=== PATIENT | male | born 1980 | race Caucasian/White ===

== ENCOUNTER 2021-04-08 15:13 | Outpatient (CLI) | payer BC, SELFPAY ==
[2021-04-08 18:32] LABS: Hematocrit 36.4 % (42.0-52.0); Hemoglobin 10.9 g/dL (14.0-18.0); Mean Corpuscular HGB Conc 29.9 g/dl (32-36); Mean Corpuscular Hemoglobin 25.2 pg (26-34); Mean Corpuscular Volume 84.3 fl (80-100); Mean Platelet Volume 9.1 fl (7.4-10.4); Platelet Count Result 389 k/mm3 (150-375); Red Blood Count 4.32 M/mm3 (4.6-6.20); Red Cell Distribution Width 15.3 % (11.5-14.5); White Blood Count 12.4 K/mm3 (4.5-10.0)
[2021-04-08 18:57] LABS: LDL Cholesterol Direct 101 mg/dL
[2021-04-08 19:01] LABS: Alanine Aminotransferase 22 U/L (4-50); Albumin Level 4.5 g/dL (3.5-5.1); Alkaline Phosphatase 49 U/L (38-126); Anion Gap 19 mmol/L (8-16); Aspartate Amino Transferase 22 U/L (17-59); Bilirubin,Total 0.3 mg/dL (0.2-1.3); Blood Urea Nitrogen 86 mg/dL (9-20); Calcium 10.1 mg/dL (8.4-10.2); Carbon Dioxide 20 mmol/L (22-30); Chloride 104 mmol/L (98-107); Cholesterol 222 mg/dL (0-200); Estimated Glomerular Filt Rate 14; Glucose 146 mg/dL (65-110); HDL Direct 38 mg/dL; Potassium 6.3 mmol/L (3.4-5.0); Sodium 143 mmol/L (137-145); Triglycerides 355 mg/dL (<150)
[2021-04-08 19:52] LABS: Hemoglobin A1C 5.9 % (<5.7)
== END 2021-04-08 15:14 | disposition home or self-care (01) ==
LOC: ANHBWCLAB 15:15
PROVIDERS: PCP Family Medicine; Visit Provider Family Medicine
DX: E11.8 Type 2 diabetes mellitus with unspecified complications (principal); E78.1 Pure hyperglyceridemia; I10 Essential (primary) hypertension; N18.9 Chronic kidney disease, unspecified; F41.9 Anxiety disorder, unspecified; F32.9 Major depressive disorder, single episode, unspecified
CPT/HCPCS: 36415; 80053; 80061; 83036; 85027

== ENCOUNTER 2021-04-09 12:49 | Emergency (ER) | payer BC, SELFPAY ==
[2021-04-09] VITALS (22 sets, daily range): BP systolic 115–136; BP diastolic 67–85; PULSE 68–93; RESP 12–23; TEMP 37; O2SAT 96–99
--- NOTE | 2021-04-09 13:25 | ECG_ITS ---
Measurements Intervals [place] Rate: 78 P: 11 NC: 154 QRS: -25 QRSD: 77 T: 19 QT: 323 QTc: 368 Interpretive Statements SINUS RHYTHM POOR R WAVE PROGRESSION, ANTERIOR LEADS BORDERLINE ECG Electronically Signed On 04-09-2021 13:59:51 CDT by Rene Cook D.O.
[2021-04-09 13:56] LABS: Basophils Absolute Auto 0.1 K/mm3 (0.0-0.1); Basophils Percent Auto 0.4 % (0.2-1.2); Eosinophils Absolute Auto 0.4 K/mm3 (0-0.3); Eosinophils Percent Auto 3.4 % (0-4.4); Hematocrit 34.9 % (42.0-52.0); Hemoglobin 10.7 g/dL (14.0-18.0); Immature Granulocyte Absolute 0.04 K/mm3 (0.00-0.031); Immature Granulocyte Percent A 0.3 % (0-0.5); Lymphocytes Absolute Auto 2.11 K/mm3 (0.9-3.2); Lymphocytes Percent Auto 17.6 % (18.3-44.2); Mean Corpuscular HGB Conc 30.7 g/dl (32-36); Mean Corpuscular Hemoglobin 25.5 pg (26-34); Mean Corpuscular Volume 83.1 fl (80-100); Mean Platelet Volume 8.6 fl (7.4-10.4); Monocytes Absolute Auto 0.5 K/mm3 (0.1-0.6); Monocytes Percent Auto 4.4 % (2.6-8.5); Neutrophils Absolute Auto 8.8 K/mm3 (1.3-6.7); Neutrophils Percent Auto 73.9 % (45.5-73.1); Platelet Count Result 342 k/mm3 (150-375); Red Cell Distribution Width 15.2 % (11.5-14.5)
--- NOTE | 2021-04-09 14:17 | ED.GENADULT ---
HPI - General Adult General Chief complaint: Recheck/Abnormal Lab/Rx Stated complaint: Elevated Potassium Time Seen by Provider: 04/09/21 14:17 History of Present Illness HPI narrative: Patient is a 40-year-old male with history of chronic kidney disease, hypertension, diabetes who comes to the emergency room today because of abnormal lab work that was done yesterday. Patient reports that he feels fine. He was seen by a new PCP yesterday they recommended he have some routine lab work done. The patient received a call from the PCP office today saying that his potassium was dangerously high and he should come to the emergency room. Review of the chart shows that he had lab work done yesterday and had a potassium of 6.3. Also had a creatinine of 4.6. He does admit to a history of kidney issues . He was seen by administration internship once last year but has been unable to follow-up since then. He is on a lisinopril/hydrochlorothiazide combo pill. He denies any decreased urinary output. Denies any lower extremity edema. No shortness of breath. Related Data Home Medications Medication Instructions Recorded Confirmed atorvastatin 20 mg tablet 20 mg PO DAILY 11/21/20 Allergies Allergy/AdvReac Type Severity Reaction Status Date / Time No Known Allergies Allergy Unverified 04/08/21 14:42 Review of Systems Constitutional: Constitutional: Reports as per HPI, Denies fever(s), Denies night sweats and Denies weakness Cardiovascular: Cardiovascular: Denies chest pain, Denies edema, Denies leg edema, Denies dyspnea and Denies orthopnea Respiratory: Respiratory: Denies cough and Denies dyspnea Gastrointestinal: Gastrointestinal: Denies abdominal pain, Denies constipation, Denies diarrhea, Denies nausea and Denies vomiting Musculoskeletal: Musculoskeletal: Denies abnormal gait, Denies back pain, Denies numbness and Denies tingling Neurologic: Denies Abnormal speech present, Denies abnormal gait, Denies numbness, Denies tingling and Denies weakness Psychiatric: Psychiatric: Denies homicidal ideation and Denies suicidal ideation [facility] Family History Family History Mother Diabetes mellitus Hypertension Grandparent Diabetes mellitus Hypertension Social History Social History Smoking status: Never smoker Second hand tobacco smoke exposure: No Alcohol intake: never Substance use: current Substance use type: marijuana Exam Narrative: Pleasant, well-appearing, no distress Const: General: cooperative, healthy appearing, comfortable, no acute distress, well developed, alert, awake and Physically active Orientation/consciousness: patient oriented x3 HENMT: Head: normal to inspection, normocephalic and atraumatic Ears: external ears normal General nose exam: Normal external nose present Eyes: Pupils: Equal, round and reactive pupils present EOM: EOMs intact bilaterally Neck: Neck: normal visual inspection Chest: Chest palpation & inspection: normal inspection of the chest and no tenderness Resp: Effort & Inspection: normal respiratory effort and able to speak in complete sentences Auscultation: clear to auscultation bilaterally Cardio: Rate: regular rate Rhythm: regular rhythm GI: Inspection: normal to inspection GI Palp: No abdominal tenderness : General: Yes no CVA tenderness Back/Spine/Pelvis: Back: no CVA tenderness Skin: General skin exam: normal color and no rashes or lesions noted Lesions: no lesions Neuro: General: patient oriented x3, no focal motor deficits and CN's II-XI intact bilaterally Cranial nerves: Yes Equal, round and reactive pupils present Speech: No Abnormal speech present Extrem: General: normal to inspection and full ROM Psych: Appearance: grossly normal and well kempt Mental Status: mental status grossly normal Speech and movement: Normal speech and movement present Affect: norm
[2021-04-09 14:21] LABS: Alanine Aminotransferase 22 U/L (4-50); Albumin Level 4.5 g/dL (3.5-5.1); Alkaline Phosphatase 44 U/L (38-126); Anion Gap 16 mmol/L (8-16); Aspartate Amino Transferase 23 U/L (17-59); Bilirubin,Total 0.2 mg/dL (0.2-1.3); Blood Urea Nitrogen 83 mg/dL (9-20); Calcium 10.1 mg/dL (8.4-10.2); Carbon Dioxide 21 mmol/L (22-30); Chloride 103 mmol/L (98-107); Estimated CRCL calculation 22 ml/min; Estimated Glomerular Filt Rate 14; Glucose 149 mg/dL (65-110); Potassium 5.8 mmol/L (3.4-5.0); Sodium 140 mmol/L (137-145)
[2021-04-09 14:37] LABS: Add Urine Microscopic? YES; Appearance Urine Clear (Clear); Bilirubin Urine Negative (Negative); Blood Urine 1+ (Negative); Color Urine Straw (Yellow); Glucose Urine UA 2+ mg/dL (Negative); Ketones Urine Negative (Negative); Leukocyte Esterase Ur Negative LEU/UL (Negative); Nitrate Urine Negative (Negative); Protein Urine 2+ mg/dL (Negative); RBC Urine 0-2 /hpf (0-2); Specific Grav Ur 1.012 (1.001-1.035); Urobilinogen Urine Negative mg/dL (<2.0); WBC Urine 0-3 /hpf
--- NOTE | 2021-04-09 15:27 | PC.NURSE ---
Per PA Evans, no repeat EKG needed.
[2021-04-09] MEDS: SODIUM POLYSTYRENE SULFONONATE 15 GM/60 ML BTL PO (16:44)
== END 2021-04-09 17:11 | disposition home or self-care (01) ==
PROVIDERS: Emergency Provider Emergency Medicine; PCP Family Medicine
DX: I12.9 Hypertensive chronic kidney disease with stage 1 through stage 4 chronic kidney disease, or unspecified chronic kidney disease (principal); N18.9 Chronic kidney disease, unspecified; E87.5 Hyperkalemia; E11.22 Type 2 diabetes mellitus with diabetic chronic kidney disease
CPT/HCPCS: 36415; 80053; 81001; 85025; 93005; 99283; A9270

== ENCOUNTER 2021-04-15 11:14 | Outpatient (CLI) | payer BC, SELFPAY ==
[2021-04-15 20:36] LABS: Alanine Aminotransferase 22 U/L (4-50); Albumin Level 4.4 g/dL (3.5-5.1); Alkaline Phosphatase 50 U/L (38-126); Anion Gap 14 mmol/L (8-16); Aspartate Amino Transferase 26 U/L (17-59); Bilirubin,Total 0.2 mg/dL (0.2-1.3); Blood Urea Nitrogen 78 mg/dL (9-20); Calcium 9.8 mg/dL (8.4-10.2); Carbon Dioxide 18 mmol/L (22-30); Chloride 108 mmol/L (98-107); Estimated Glomerular Filt Rate 16; Glucose 129 mg/dL (65-110); Sodium 140 mmol/L (137-145)
== END 2021-04-15 11:15 | disposition home or self-care (01) ==
LOC: ANHBWCLAB 11:15
PROVIDERS: PCP Family Medicine; Visit Provider Family Medicine
DX: E87.5 Hyperkalemia (principal); I10 Essential (primary) hypertension
CPT/HCPCS: 36415; 80053

== ENCOUNTER 2021-05-21 14:02 | Outpatient (CLI) | payer BC, SELFPAY ==
[2021-05-21 18:36] LABS: Basophils Percent Auto 0.2 % (0.2-1.2); Eosinophils Absolute Auto 0.2 K/mm3 (0-0.3); Eosinophils Percent Auto 1.2 % (0-4.4); Hematocrit 37.9 % (42.0-52.0); Hemoglobin 11.2 g/dL (14.0-18.0); Immature Granulocyte Absolute 0.05 K/mm3 (0.00-0.031); Immature Granulocyte Percent A 0.4 % (0-0.5); Lymphocytes Absolute Auto 1.79 K/mm3 (0.9-3.2); Lymphocytes Percent Auto 14.8 % (18.3-44.2); Mean Corpuscular HGB Conc 29.6 g/dl (32-36); Mean Corpuscular Hemoglobin 25.1 pg (26-34); Mean Platelet Volume 8.8 fl (7.4-10.4); Monocytes Absolute Auto 0.6 K/mm3 (0.1-0.6); Monocytes Percent Auto 4.8 % (2.6-8.5); Neutrophils Absolute Auto 9.5 K/mm3 (1.3-6.7); Neutrophils Percent Auto 78.6 % (45.5-73.1); Platelet Count Result 386 k/mm3 (150-375); Red Blood Count 4.46 M/mm3 (4.6-6.20); Red Cell Distribution Width 15.6 % (11.5-14.5); White Blood Count 12.1 K/mm3 (4.5-10.0)
[2021-05-21 18:47] LABS: Anion Gap 13 mmol/L (8-16); Blood Urea Nitrogen 62 mg/dL (9-20); Calcium 9.9 mg/dL (8.4-10.2); Carbon Dioxide 25 mmol/L (22-30); Chloride 104 mmol/L (98-107); Estimated Glomerular Filt Rate 18; Glucose 120 mg/dL (65-110); Potassium 4.8 mmol/L (3.4-5.0); Sodium 142 mmol/L (137-145)
== END 2021-05-21 14:03 | disposition home or self-care (01) ==
LOC: ANHBWCLAB 14:03
PROVIDERS: PCP Family Medicine; Visit Provider Family Medicine
DX: E87.5 Hyperkalemia (principal); I10 Essential (primary) hypertension
CPT/HCPCS: 36415; 80048; 85025

== ENCOUNTER 2021-07-08 15:29 | Outpatient (CLI) | payer BC, SELFPAY ==
--- NOTE | ~2021-07-08 | XR_ITS ---
EXAMINATION: XR ankle LT min 3V DATE: 07/08/2021 15:43 INDICATION: Left ankle pain. TECHNIQUE: 4 views of left ankle were obtained. COMPARISON: None. FINDINGS: Bone alignment is normal. No fracture. Joint spaces are normal. There are enthesophytes at the posterior and plantar aspects of calcaneal tuberosity. There is ankle soft tissue swelling. IMPRESSION: 1. No fracture. Reviewed, dictated and finalized at location A. ND FLOOR OPERATOR IMPRESSION: 1. No fracture.
--- NOTE | ~2021-07-08 | XR_ITS ---
EXAMINATION: XR foot LT min 3V DATE: 07/08/2021 15:43 INDICATION: Left foot pain. TECHNIQUE: 4 views of left foot were obtained. COMPARISON: Left foot radiographs 06/02/2018 FINDINGS: Bone alignment is normal. No fracture. There is mild osteoarthritis of first metatarsophala ngeal joint and some of the interphalangeal joints. There are enthesophytes at the posterior and plan tar aspects of calcaneal tuberosity. IMPRESSION: 1. Mild polyarticular osteoarthritis. Reviewed, dictated and finalized at location A. CAPTAIN
== END 2021-07-08 15:30 | disposition home or self-care (01) ==
LOC: ANHBWCIMG 15:30
PROVIDERS: PCP Family Medicine; Visit Provider Family Medicine
DX: S93.402A Sprain of unspecified ligament of left ankle, initial encounter (principal); M19.072 Primary osteoarthritis, left ankle and foot
CPT/HCPCS: 73610; 73630

== ENCOUNTER 2022-07-21 14:50 | Inpatient (IN) | payer OTHER, SELFPAY ==
[2022-07-21] VITALS (8 sets, daily range): BP systolic 149–160; BP diastolic 75–89; PULSE 69–74; RESP 12–23; TEMP 36.6–36.9; O2SAT 98–100; BMI 32.2
--- NOTE | ~2022-07-21 | XR_ITS ---
EXAMINATION: XR chest port-a-cath/central DATE: 07/23/2022 15:58 INDICATION: Central venous dialysis catheter placement TECHNIQUE: frontal view of the chest was obtained. COMPARISON: Chest radiograph dated 07/21/2022 FINDINGS: Large-bore dual-lumen right internal jugular likely tunneled central venous dialysis catheter with di stal tip in the right atrium. Mild streaky atelectasis at the left costophrenic angle and right cardi ophrenic angle. No other airspace opacities, pulmonary edema, pleural effusion or pneumothorax. The c ardiomediastinal silhouette is normal. Visualized bones and soft tissues are unremarkable. IMPRESSION: 1. Large-bore dual-lumen right internal jugular central venous tunneled dialysis catheter with distal tip in the right atrium. 2. Mild bibasilar atelectasis. Reviewed, dictated and finalized at location A. HEATER OPERATOR IMPRESSION: 1. Large-bore dual-lumen right internal jugular central venous tunneled dialysi s catheter with distal tip in the right atrium. 2. Mild bibasilar atelectasis.
--- NOTE | ~2022-07-21 | XR_ITS ---
EXAMINATION: XR fl guide central line place DATE: 07/23/2022 15:26 INDICATION: Dialysis catheter placement TECHNIQUE: A single fluoroscopic image of the right upper chest was obtained during procedure perform ed by Dr. Brewer. Radiologist was not present for the imaging or procedure. The amount of fluoroscopy time used during this procedure was 0.1 minutes. COMPARISON: None. FINDINGS: Partially visualized large-bore dual-lumen right internal jugular likely tunneled central venous cath eter which extends into the cephalad superior vena cava and beyond the inferior margin of the field-o f-view. No evident pneumothorax at the right apex. IMPRESSION: 1. Fluoroscopy utilized during right internal jugular central venous catheter placement. Reviewed, dictated and finalized at location A. STANT OPERATIONS MANAGER IMPRESSION: 1. Fluoroscopy utilized during right internal jugular central venous catheter p venkata.
--- NOTE | ~2022-07-21 | XR_ITS ---
EXAMINATION: XR chest 1V portable Exam Date/Time: 07/21/2022 20:58 FARM EQUIPMENT MECHANIC APPRENTICE HISTORY: Kidney failure, HTN, DM Comparison: None available. RESULT: Lines, tubes, and devices: None. Lungs and pleura: Low volumes with crowding and bibasilar atelectasis. Cardiomediastinal silhouette: Stable. Other: No acute osseous or upper abdominal finding. IMPRESSION: No acute cardiopulmonary process. Reviewed, dictated and finalized at location K. EQUIPMENT MECHANIC APPRENTICE
[2022-07-21 15:13] LABS: Basophils Percent Auto 0.3 % (0.2-1.2); Eosinophils Absolute Auto 0.2 K/mm3 (0-0.3); Eosinophils Percent Auto 1.2 % (0-4.4); Hematocrit 30.7 % (42.0-52.0); Hemoglobin 9.8 g/dL (14.0-18.0); Immature Granulocyte Absolute 0.11 K/mm3 (0.00-0.031); Immature Granulocyte Percent A 0.7 % (0-0.5); Lymphocytes Absolute Auto 2.56 K/mm3 (0.9-3.2); Lymphocytes Percent Auto 16.7 % (18.3-44.2); Mean Corpuscular HGB Conc 31.9 g/dl (32-36); Mean Corpuscular Hemoglobin 25.9 pg (26-34); Mean Corpuscular Volume 81.2 fl (80-100); Mean Platelet Volume 8.3 fl (7.4-10.4); Monocytes Absolute Auto 0.8 K/mm3 (0.1-0.6); Monocytes Percent Auto 5.3 % (2.6-8.5); Neutrophils Absolute Auto 11.7 K/mm3 (1.3-6.7); Neutrophils Percent Auto 75.8 % (45.5-73.1); Platelet Count Result 299 k/mm3 (150-375); Red Blood Count 3.78 M/mm3 (4.6-6.20); Red Cell Distribution Width 15.2 % (11.5-14.5); White Blood Count 15.4 K/mm3 (4.5-10.0)
[2022-07-21 15:25] LABS: Alanine Aminotransferase 18 U/L (6-50); Albumin Level 4.3 g/dL (3.5-5.1); Alkaline Phosphatase 82 U/L (38-126); Anion Gap 15 mmol/L (8-16); Aspartate Amino Transferase 20 U/L (17-59); Bilirubin,Total 0.4 mg/dL (0.2-1.3); Blood Urea Nitrogen 101 mg/dL (9-20); Calcium 7.5 mg/dL (8.4-10.2); Carbon Dioxide 17 mmol/L (22-30); Chloride 107 mmol/L (98-107); Estimated CRCL calculation 12 ml/min; Estimated Glomerular Filt Rate 6; Glucose 135 mg/dL (65-110); Potassium 4.1 mmol/L (3.4-5.0); Sodium 139 mmol/L (137-145)
--- NOTE | 2022-07-21 19:11 | ECG_ITS ---
Measurements Intervals [place] Rate: 69 P: 43 DE: 174 QRS: -23 QRSD: 93 T: 53 QT: 401 QTc: 432 Interpretive Statements SINUS RHYTHM POOR R-WAVE PROGRESSION COMPARED TO ECG 04/09/2021 13:30:32 NO SIGNIFICANT CHANGES Electronically Signed On 07-22-2022 13:16:46 TICKET AGENT by Davi Martinez M.D.
[2022-07-21 19:26] LABS: Magnesium 2.4 mg/dL (1.6-2.3)
--- NOTE | 2022-07-21 19:58 | ED.GENADULT ---
HPI - General Adult General Chief complaint: Weakness Stated complaint: diminished kidney fx - fatigue and weakness Time Seen by Provider: 07/21/22 19:07 History of Present Illness HPI narrative: This is a 41-year-old male with a history of uncontrolled hypertension / diabetes presenting to ED with fatigue x1 week. patient notes that he can only go a couple hours at work before he feels like he has to sit down and take a rest. He denies chest pain, difficulty breathing, fever, chills, headache, body aches or any other physical complaint.Patient has been being seen by clinical safety manager Dr. Lanier at [facility]. He was told last week that his kidney function was down to 10% and he was close to needing dialysis. He has several appointments scheduled over the next couple months to monitor his kidney function. The patient spoke with his primary care physician earlier today and told him of his symptoms and was told to come to the emergency department. Related Data Home Medications Medication Instructions Recorded Confirmed atorvastatin 20 mg tablet 20 mg PO DAILY 11/21/20 07/08/21 Allergies Allergy/AdvReac Type Severity Reaction Status Date / Time No Known Allergies Allergy Verified 07/21/22 19:11 Review of Systems Review of Systems: CONSTITUTIONAL: Denies night sweats. EYES: No eye pain ENT: Denies rhinorrhea CARDIOVASCULAR: Denies palpitations RESPIRATORY: Denies hemoptysis GASTROINTESTINAL: Denies hematemesis GENITOURINARY: Denies hematuria. SKIN: Denies rash MUSCULOSKELETAL: Denies myalgia. NEUROLOGIC: Denies weakness. PSYCHIATRIC: Denies delusions [facility] Past Medical History Medical History Diabetes Hypertension Non-compliance Renal failure Family History Family History Mother Diabetes mellitus Hypertension Grandparent Diabetes mellitus Hypertension Social History Social History Smoking status: Never smoker Second hand tobacco smoke exposure: No Alcohol intake: never Substance use: current Substance use type: marijuana Exam Narrative: APPEARANCE: No apparent distress. Head: atraumatic. EYES: EOMI, NOSE: Atraumatic NECK: Trachea midline RESPIRATORY: No increased rate of breathing, clear to auscultation bilaterally CARDIOVASCULAR: RRR, no peripheral edema ABDOMINAL: Non-distended MUSCULOSKELETAl: No obvious deformities NEURO: Alert. Moving 4/4 extremities SKIN:: Warm, dry. Normal color PSYCHIATRIC: Normal affect Course Vital Signs Vital signs: Vital Signs Temperature 97.8 F 07/21/22 14:53 Pulse Rate 69 07/21/22 14:53 Respiratory Rate 18 07/21/22 14:53 Blood Pressure 149/75 H 07/21/22 14:53 Pulse Oximetry 100 07/21/22 14:53 Oxygen Delivery Room Air 07/21/22 14:53 Temperature 97.8 F 07/21/22 14:53 Pulse Rate 70 07/21/22 19:31 Respiratory Rate 20 07/21/22 19:31 Blood Pressure 150/81 H 07/21/22 19:31 Pulse Oximetry 100 07/21/22 19:31 Oxygen Delivery Room Air 07/21/22 14:53 Medical Decision Making MDM Narrative Medical decision making narrative: This is a 41-year-old male presenting ED with fatigue x1 week. patient has poor kidney function at baseline. Will get lab work to evaluate his kidney function. EKG interpretation: Rhythm [sinus], Rate 69, Mallard -[normal], MD -[normal], QRS [narrow], QTC [normal], T waves -[negative for concerning inversions], ST Segments - [Negative for concerning elevations] Final interpretations: [Normal Sinus Rhythm] Flu/COvid is negative. Lab work showed a BUN of 101 and creatinine of 9.0. Patient's potassium is 4.1. He is not fluid overloaded. He is slightly acidotic with carbon dioxide of 17. No emergent indications for dialysis at this point. Patient will be admitted to the hospital. Patient has been accepted by Dr. Delarosa. Nep
[2022-07-21 20:02] LABS: Influenza A QL RT-PCR Negative (Negative); Influenza B QL RT-PCR Negative (Negative); SARS-CoV-2 RNA PCR Negative
--- NOTE | 2022-07-21 20:48 | PM.IMHP ---
H&P: HPI History of Present Illness Date/Time: 07/21/22 20:48 Chief Complaint: generalized weakness Narrative: This is a 41-year-old male with past medical history significant for hypertension, dyslipidemia, type 2 diabetes mellitus, chronic kidney disease, depression, obesity. patient presents to the emergency room due to generalized weakness. patient has worsening kidney function and was sent to the emergency room patient found to have a creatinine of 9 and BUN of 101. patient denies any fevers, rigors, chills, cough, sputum production, chest pain, palpitations, lightheadedness, nausea, vomiting, diarrhea, abdominal pain has had some leg swelling. Patient has been admitted for further evaluation management and treatment. A CHEST X-RAY WAS REPORTED IMPRESSION: No acute cardiopulmonary process. EKG WAS REPORTED ; SINUS RHYTHM POSSIBLE ANTERIOR MYOCARDIAL INFARCTION , OF INDETERMINATE AGE [30 ms Q WAVE IN V3/V4, OR R < 0.2 mV IN V4] COMPARED TO ECG 04/09/2021 13:30:32 NO SIGNIFICANT CHANGES Review of Systems Review of Systems: GENERALIZED WEAKNESS, WORSENING KIDNEY FUNCTION. IN PREPARATION FOR INITIATION OF DIALYSIS. Constitutional: Constitutional: Denies chills, Reports fatigue, Denies fever(s), Reports lethargy, Denies malaise, Denies poor appetite and Reports weakness Eyes: Eyes: Denies change in vision ENT: Denies dysphagia and Denies odynophagia Cardiovascular: Cardiovascular: Denies chest pain, Denies leg ulcers, Reports leg edema, Denies lightheadedness, Denies radiating jaw, neck or arm pain and Denies palpitations Respiratory: Respiratory: Denies cough, Denies pain on inspiration, Denies dyspnea, Denies dyspnea on exertion and Denies wheezing Gastrointestinal: Gastrointestinal: Denies abdominal pain, Denies dyspepsia, Denies heartburn, Denies diarrhea, Denies nausea and Denies vomiting Genitourinary: Genitourinary: Reports no additional male genitourinary complaints and Reports as per HPI Musculoskeletal: Musculoskeletal: Reports muscle weakness Integumentary/Breasts: Skin/Breast: Denies rash Neurologic: Denies abnormal gait, Denies dizziness, Denies focal weakness, Denies Sensory deficit (Neuro) and Denies weakness Psychiatric: Psychiatric: Reports no additional psychiatric complaints and Reports as per HPI Endocrine: Endocrine: Denies cold intolerance, Denies flushing, Denies heat intolerance, Denies polyphagia, Denies polydipsia and Denies palpitations Hematologic/Lymphatic: Hematologic/Lymphatic: Reports no additional hematologic/lymphatic complaints and Reports as per HPI Allergic/Immunologic: Allergic/Immunologic: Reports no additional allergic/immunologic complaints and Reports as per HPI [facility] Past Medical History Medical History Diabetes Hypertension Non-compliance Renal failure Family History Family History Mother Diabetes mellitus Hypertension Grandparent Diabetes mellitus Hypertension Social History Social History Smoking status: Never smoker Second hand tobacco smoke exposure: No Alcohol intake: never Substance use: current Substance use type: marijuana Last use: 07/21/22 Lack of Transportation: No Lack of Food: Never True Current Housing: I Have Housing Concerned About Future Housing: No Difficulty Paying Gas/Electric Bills: No Difficulty Paying for Meds: No Currently Unemployed: No Education: High School Diploma/GED Difficulty w/ Childcare or Family Care: No Spiritual care concerns: No Meds Home Medications and Allergies Home Medications Medication Instructions Recorded Confirmed Type escitalopram oxalate 20 mg tablet 20 mg PO DAILY #90 tabs 09/11/21 07/21/22 Rx (Lexapro) amlodipine 10 mg tablet 10 mg PO DAILY 07/21/22 07/21/22 History calcitriol 0
[2022-07-21 20:51] LABS: Add Urine Microscopic? YES; Appearance Urine Slightly Cloudy (Clear); Bilirubin Urine Negative (Negative); Blood Urine 1+ (Negative); Color Urine Light Yellow (Yellow); Glucose Urine UA Trace mg/dL (Negative); Ketones Urine Negative (Negative); Leukocyte Esterase Ur Negative LEU/UL (Negative); Nitrate Urine Negative (Negative); Protein Urine 3+ mg/dL (Negative); Urobilinogen Urine 0.2 mg/dL (<2.0)
[2022-07-21 20:55] LABS: Amorphous Sediment Urine Few; Bacteria Urine Trace /hpf; Mucus Urine Rare /lpf; Squamous Epithelial Cell Urine Rare /hpf (Few)
--- NOTE | 2022-07-21 23:28 | ADMGEN ---
This patient, Carlos Montana, was admitted to Medical Room 249-01. Patient/family oriented to hospital policies and general routines including ID bracelet, bed and alarms, visiting hours, pain management, procedures, bathroom and other care routines, personal items, smoking policy, room service/diet, and visiting hours. Information on how to activate the Rapid Response Team has been discussed. Patient/Family are encouraged to report perceived risks to care and to ask questions if they do not understand what they are told or what they should do.
[2022-07-22 04:45] VITALS: BP 136/72; PULSE 69; RESP 14; TEMP 36.6; O2SAT 98
[2022-07-22 06:13] LABS: Basophils Percent Auto 0.2 % (0.2-1.2); Eosinophils Absolute Auto 0.2 K/mm3 (0-0.3); Eosinophils Percent Auto 1.4 % (0-4.4); Hematocrit 29.7 % (42.0-52.0); Hemoglobin 9.4 g/dL (14.0-18.0); Immature Granulocyte Absolute 0.06 K/mm3 (0.00-0.031); Immature Granulocyte Percent A 0.4 % (0-0.5); Lymphocytes Absolute Auto 2.49 K/mm3 (0.9-3.2); Lymphocytes Percent Auto 17.4 % (18.3-44.2); Mean Corpuscular HGB Conc 31.6 g/dl (32-36); Mean Corpuscular Hemoglobin 25.5 pg (26-34); Mean Corpuscular Volume 80.7 fl (80-100); Mean Platelet Volume 8.5 fl (7.4-10.4); Monocytes Absolute Auto 0.8 K/mm3 (0.1-0.6); Monocytes Percent Auto 5.7 % (2.6-8.5); Neutrophils Absolute Auto 10.7 K/mm3 (1.3-6.7); Neutrophils Percent Auto 74.9 % (45.5-73.1); Platelet Count Result 279 k/mm3 (150-375); Red Blood Count 3.68 M/mm3 (4.6-6.20); Red Cell Distribution Width 15.1 % (11.5-14.5); White Blood Count 14.3 K/mm3 (4.5-10.0)
[2022-07-22 06:21] LABS: Anion Gap 13 mmol/L (8-16); Blood Urea Nitrogen 100 mg/dL (9-20); Calcium 7.3 mg/dL (8.4-10.2); Carbon Dioxide 16 mmol/L (22-30); Chloride 111 mmol/L (98-107); Estimated CRCL calculation 12 ml/min; Estimated Glomerular Filt Rate 7; Glucose 99 mg/dL (65-110); Phosphorus 10.2 mg/dL (2.5-4.5); Potassium 4.2 mmol/L (3.4-5.0); Sodium 140 mmol/L (137-145)
[2022-07-22 07:00] LABS: Hepatitis B Surface Antigen Negative (Negative)
[2022-07-22 07:06] LABS: HAV RESULT Negative (Negative); Hepatitis B Core IgM Result Negative (Negative)
[2022-07-22 07:18] LABS: Hepatitis B Surface Anti Res Negative; Hepatitis C Virus Antibody Negative (Negative)
--- NOTE | 2022-07-22 07:45 | PM.IMPN ---
Progress Note: A&P Assessment and Plan (1) Acute kidney injury superimposed on CKD: Code(s): N17.9 - Acute kidney failure, unspecified; N18.9 - Chronic kidney disease, unspecified Status: Acute Assessment and Plan: Patient presented to the emergency department with complaints of generalized weakness and fatigue. He has a history of chronic kidney disease and sees Dr. Stanton at [facility], Nephrology. CKD stage 5 BUN 101, creatinine 9, GFR 6, potassium 4.1, sodium 139, chloride 107, carbon dioxide 17 anion gap 15, glucose 135, magnesium 2.4, calcium 7.5. Prior labs from 04/29-05/29 showed BUN 62-83 and creatinine 3.8-4.6, eGFR 14-18. Nephrology consulted and appreciate recommendations Trend renal function Phosphorus 10.2, calcium 7.3, on 07/22 increase sevelamer to 1600 mg TID Continue vitamin D3, calcitriol, and tight glucose and BP control Will hold losartan for now until evaluated by Nephrology (2) Hypertension: Qualifiers: Hypertension type: primary hypertension Qualified Code(s): I10 - Essential (primary) hypertension Code(s): I10 - Essential (primary) hypertension Status: Chronic Assessment and Plan: Chronic, BP 133/74 to 160/85 continue amlodipine, Toprol XL at home doses Will hold losartan until evaluated by Nephrology due to possible acute worsening of CKD (3) Diabetes: Qualifiers: Diabetes mellitus type: type 2 Diabetes mellitus assisted insulin use: without long term care social worker use Diabetes mellitus complication status: with kidney complications Diabetes mellitus complication detail: with chronic kidney disease Chronic kidney disease stage: stage 5, not on chronic dialysis Qualified Code(s): E11.22 - Type 2 diabetes mellitus with diabetic chronic kidney disease; N18.5 - Chronic kidney disease, stage 5 Code(s): E11.9 - Type 2 diabetes mellitus without complications Status: Chronic Assessment and Plan: Chronic, stable. A1c 6.1% Hold semaglutide while inpatient Continue Accu-Cheks a.c. HS with low-dose insulin sliding scale t.i.d. with meals (4) Anemia: Qualifiers: Anemia type: iron deficiency Iron deficiency anemia type: unspecified iron deficiency Qualified Code(s): D50.9 - Iron deficiency anemia, unspecified Code(s): D64.9 - Anemia, unspecified Status: Chronic Assessment and Plan: Chronic, hemoglobin 9 0.4-9.8. Prior levels in 2020 10-12. Likely multifactorial secondary to iron deficiency and chronic kidney disease Serum iron 36, TIBC 247, saturation 15%, ferritin 104. He reports starting a multivitamin with iron in the past week however renal caps does not appear to contain iron. Will start ferrous sulfate 325 mg p.o. daily. B12 769 and folate 18-within normal limits Trend H&H and monitor for acute bleeding (5) Leukocytosis: Code(s): D72.829 - Elevated white blood cell count, unspecified Status: Acute Assessment and Plan: WBC 14.3 without bandemia. patient is afebrile. UA shows slightly cloudy urine without nitrites or leukocytes, WBC 10-15 and trace bacteria, 3+ protein. He has no suprapubic or CVA tenderness on exam. UA is not significantly concerning for acute UTI. Hold antibiotics pending urine culture results. Chest x-ray negative for acute pulmonary disease No open wounds appreciated No complaints of diarrhea, abdominal pain, nausea vomiting. Trend CBC and monitor vital signs. (6) Weakness: Code(s): R53.1 - Weakness Status: Acute Assessment and Plan: Possibly secondary to worsening of CKD and anemia. B12 and folic acid within normal limits TSH within normal limits Iron panel suggests iron deficiency and will start iron supplement No signs or symptoms of hypoglycemia-continue Accu-Cheks a.c. HS No focal deficits. Continue to monitor neuro status and vital signs (7) Obstructive sleep apnea: Code(s): G47.33 - Obstructive sleep apnea (adult) (pedia
[2022-07-22 08:38] LABS: Glucose Point of Care 94 mg/dl (65-105)
[2022-07-22] MEDS: SEVELAMER CARBONATE 800 MG TABLET 1600 MG PO ×3 (08:49→17:20)
[2022-07-22 08:50] VITALS: PULSE 68
[2022-07-22] MEDS: METOPROLOL SUCCINATE EXT REL 50 MG TABCR PO (08:50)
[2022-07-22] MEDS: CHOLECALCIFEROL 1,000 UNITS TABLET 1000 UNITS PO (08:50)
[2022-07-22] MEDS: VITAMIN B CMPLX/VIT C/FOLIC AC 1 CAPSULE 1 CAP PO (08:51)
[2022-07-22] MEDS: calcitrioL 0.25 MCG CAPSULE PO (08:51)
[2022-07-22] MEDS: amLODIPine BESYLATE 5 MG TABLET 10 MG PO (08:51)
[2022-07-22] MEDS: ESCITALOPRAM OXALATE 10 MG TABLET 20 MG PO (08:51)
[2022-07-22] MEDS: ROSUVASTATIN 10 MG TABLET PO (08:51)
[2022-07-22] MEDS: LOSARTAN POTASSIUM 25 MG TABLET PO (08:51)
[2022-07-22 08:54] VITALS: RESP 16; O2SAT 98
[2022-07-22 09:17] LABS: Hemoglobin A1C 6.1 % (<5.7)
[2022-07-22 09:26] LABS: Iron 36 ug/dL (49-181)
[2022-07-22 09:36] LABS: Percent Iron Saturation 15 % (20-50)
[2022-07-22 10:06] LABS: Folic Acid 18.7 ng/mL (2.76->20)
[2022-07-22 12:29] LABS: Glucose Point of Care 163 mg/dl (65-105)
[2022-07-22 15:02] VITALS: BP 133/74; PULSE 67; RESP 16; TEMP 36.5; O2SAT 97
--- NOTE | 2022-07-22 15:19 | PM.CNNEP ---
Assessment and Plan Assessment and plan (1) End stage renal disease: Code(s): N18.6 - End stage renal disease Status: Chronic Assessment and Plan: due to progression of disease secondary to his diabetic nephropathy will plan to initate LAP CUTTER/dialysis on this hospitalization (see discussion below) follow electrolytes, volume status, and clearance Consult Surgery for HD catheter placement (2) Weakness: Code(s): R53.1 - Weakness Status: Chronic Assessment and Plan: suspect this is a manifestation of his uremia however, relative anemia could be playing a role as well follow symptoms once dialysis initiated (3) Hypertension: Qualifiers: Hypertension type: primary hypertension Qualified Code(s): I10 - Essential (primary) hypertension Code(s): I10 - Essential (primary) hypertension Status: Chronic Assessment and Plan: reasonable control at this time will adjust medications as needed BP control may improve further with dialysis initiation (4) Anemia: Qualifiers: Anemia type: iron deficiency Iron deficiency anemia type: unspecified iron deficiency Qualified Code(s): D50.9 - Iron deficiency anemia, unspecified Code(s): D64.9 - Anemia, unspecified Status: Chronic Assessment and Plan: likely related to CKD/ESRD check iron studies Epogen with HD follow trend of H/H (5) Diabetes: Code(s): E11.9 - Type 2 diabetes mellitus without complications Status: Acute Assessment and Plan: follow acchecks glycemic control Long extensive discussion ( greater than 20 minutes) with the patient regarding his progressive decline in renal function in association with what appears to be symptoms of uremia (weakness/fatigue). given his fairly rapid decline in kidney function in just 2 weeks from when he last saw [facility] nephrology, I suspect he probably needs dialytic intervention sooner than later in the hopes that this will make him feel better in general. I discussed with him the procedure of hemodialysis, the necessity of placement of a hemodialysis catheter, and initiation of renal replacement therapy in significant detail. I also talked him about home with dialysis including peritoneal dialysis since he is interested in still working in general. Furthermore, he probably is a reasonable candidate for kidney transplantation as well. He is agreeable to initiation of renal replacement therapy/dialysis at this time. Will continue to follow. History of Present Illness Reason for Consult Consult date: 07/22/22 Reason for consult: chronic renal failure Chief Complaint Chief complaint: Kidney failure History of Present Illness Narrative: The patient is a very pleasant 41-year-old male with a significant past medical history as outlined below who presented to [facility] Emergency room due to generalized fatigue/weakness. The patient has a long extensive history of advanced kidney disease and subsequent progression of kidney disease over the last several years. Due to his fluctuating insurance issues, he has seen several different nephrologists regarding this issue with his most recent visit with [facility] Nephrology earlier this month. At that office visit he was told he had fairly advanced kidney disease and was referred to education regarding dialysis modalities with the possibility of initiation of renal replacement therapy depending on repeat labs. Over the last few days he notes that the fatigue and generalized weakness seen to have progressively gotten worse. He discussed this with his primary care physician who recommended referral to the emergency room for further evaluation particularly given his known advanced chronic kidney disease. Workup and evaluation in the emergency room demonstrated patient be mildly hypertensive but in no acute distress. Routine blood test demonstrated worsening o
[2022-07-22 17:23] LABS: Glucose Point of Care 84 mg/dl (65-105)
[2022-07-22 21:00] VITALS: BP 156/79; PULSE 75; RESP 17; TEMP 36.7; O2SAT 96
[2022-07-22 22:52] LABS: Glucose Point of Care 104 mg/dl (65-105)
[2022-07-23] VITALS (23 sets, daily range): BP systolic 85–162; BP diastolic 52–93; PULSE 66–80; RESP 14–24; TEMP 36–36.9; O2SAT 95–100
[2022-07-23 05:46] LABS: Hematocrit 30.3 % (42.0-52.0); Hemoglobin 9.6 g/dL (14.0-18.0); Mean Corpuscular HGB Conc 31.7 g/dl (32-36); Mean Corpuscular Hemoglobin 25.7 pg (26-34); Mean Platelet Volume 8.3 fl (7.4-10.4); Platelet Count Result 290 k/mm3 (150-375); Red Blood Count 3.74 M/mm3 (4.6-6.20); Red Cell Distribution Width 15.1 % (11.5-14.5)
[2022-07-23 06:00] LABS: Albumin Level 4.1 g/dL (3.5-5.1); Anion Gap 14 mmol/L (8-16); Blood Urea Nitrogen 97 mg/dL (9-20); Calcium 7.4 mg/dL (8.4-10.2); Carbon Dioxide 16 mmol/L (22-30); Chloride 109 mmol/L (98-107); Estimated CRCL calculation 12 ml/min; Estimated Glomerular Filt Rate 6; Glucose 97 mg/dL (65-110); Magnesium 2.2 mg/dL (1.6-2.3); Phosphorus 10.3 mg/dL (2.5-4.5); Potassium 4.1 mmol/L (3.4-5.0); Sodium 139 mmol/L (137-145)
[2022-07-23] MEDS: METOPROLOL SUCCINATE EXT REL 50 MG TABCR PO (08:32)
[2022-07-23] MEDS: amLODIPine BESYLATE 5 MG TABLET 10 MG PO (08:32)
[2022-07-23 08:50] LABS: Glucose Point of Care 110 mg/dl (65-105)
--- NOTE | 2022-07-23 10:03 | PM.CNGS ---
Assessment and Plan Assessment and plan (1) Acute kidney injury superimposed on CKD: Code(s): N17.9 - Acute kidney failure, unspecified; N18.9 - Chronic kidney disease, unspecified Status: Acute Assessment and Plan: Presented with acute on chronic renal failure and Nephrology is requesting placement of a tunneled hemodialysis catheter. Description of the procedure, risks, benefits, expected outcomes, and expected recovery were discussed with the patient in detail. All questions were answered. He agrees to proceed. We will add him onto the surgery schedule today and keep NPO. (2) Hypertension: Qualifiers: Hypertension type: primary hypertension Qualified Code(s): I10 - Essential (primary) hypertension Code(s): I10 - Essential (primary) hypertension Status: Chronic (3) Diabetes: Qualifiers: Chronic kidney disease stage: stage 5, not on chronic dialysis Diabetes mellitus complication detail: with chronic kidney disease Diabetes mellitus complication status: with kidney complications Diabetes mellitus shelter insulin use: without regional intermodal truck driver use Diabetes mellitus type: type 2 Qualified Code(s): E11.22 - Type 2 diabetes mellitus with diabetic chronic kidney disease; N18.5 - Chronic kidney disease, stage 5 Code(s): E11.9 - Type 2 diabetes mellitus without complications Status: Chronic (4) Obesity (BMI 30.0-34.9): Code(s): E66.9 - Obesity, unspecified Status: Acute Plan I have discussed the patient's case and plan of care with Dr. Brewer. Thank you for allowing us to see the patient in consultation. History of Present Illness Consult details Consult date: 07/23/22 Reason for consult: other (Placement of tunneled hemodialysis catheter) Requesting physician: Anni Graham MD Narrative: This is a 41-year-old man with a history of chronic renal failure, who presented to the ER 2 days ago with complaints of worsening fatigue. He was found have acute on chronic renal failure. He was admitted to the hospitalist service. Nephrology has been consulted and would like to proceed with hemodialysis. Nephrology has consulted our service for placement of a tunneled hemodialysis catheter. He is now seen for surgical evaluation. No specific complaints at this time. Denies ever requiring even temporary hemodialysis in the past. Review of Systems Review of Systems: All systems reviewed & are unremarkable except as noted in HPI and below Constitutional: Constitutional: Reports as per HPI, Reports no additional constitutional complaints and Reports fatigue Cardiovascular: Cardiovascular: Reports no additional cardiovascular complaints Respiratory: Respiratory: Reports no additional respiratory complaints and Denies dyspnea [facility] Past Medical History Medical History (Updated 07/23/22 @ 10:10 by SENDY Meyers) Diabetes Hypertension Non-compliance Renal failure Surgical History Surgical History No pertinent past surgical history Family History Family History Mother Diabetes mellitus Hypertension Grandparent Diabetes mellitus Hypertension Social History Social History Smoking status: Never smoker Second hand tobacco smoke exposure: No Alcohol intake: never Substance use: current Substance use type: marijuana Last use: 07/21/22 Lack of Transportation: No Lack of Food: Never True Current Housing: I Have Housing Concerned About Future Housing: No Difficulty Paying Gas/Electric Bills: No Difficulty Paying for Meds: No Currently Unemployed: No Education: High School Diploma/GED Difficulty w/ Childcare or Family Care: No Spiritual care concerns: No Meds Home Medications and Allergies Home Medications Medication Instructions R
--- NOTE | 2022-07-23 10:55 | PM.IMPN ---
Progress Note: A&P Assessment and Plan (1) Acute kidney injury superimposed on CKD: Code(s): N17.9 - Acute kidney failure, unspecified; N18.9 - Chronic kidney disease, unspecified Status: Acute Assessment and Plan: Patient presented to the emergency department with complaints of generalized weakness and fatigue. He has a history of chronic kidney disease and sees Dr. Stanton at [facility], Nephrology. CKD stage 5 BUN 101, creatinine 9, GFR 6, potassium 4.1, sodium 139, chloride 107, carbon dioxide 17 anion gap 15, glucose 135, magnesium 2.4, calcium 7.5. Prior labs from 04/29-05/29 showed BUN 62-83 and creatinine 3.8-4.6, eGFR 14-18. Nephrology consulted and appreciate recommendations Trend renal function Phosphorus 10.2, calcium 7.3, on 07/22 increase sevelamer to 1600 mg TID Continue vitamin D3, calcitriol, and tight glucose and BP control Will hold losartan for now. dialysis catheter to be placed today by general surgery for emergent dialysis. 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 A1c 6.1% Hold semaglutide while inpatient Continue Accu-Cheks a.c. HS with low-dose insulin sliding scale t.i.d. with meals Stable (4) Anemia: Qualifiers: Anemia type: iron deficiency Iron deficiency anemia type: unspecified iron deficiency Qualified Code(s): D50.9 - Iron deficiency anemia, unspecified Code(s): D64.9 - Anemia, unspecified Status: Chronic Assessment and Plan: Chronic, hemoglobin 9 0.4-9.8. Prior levels in 2020 10-12. Likely multifactorial secondary to iron deficiency and chronic kidney disease Serum iron 36, TIBC 247, saturation 15%, ferritin 104. He reports starting a multivitamin with iron in the past week however renal caps does not appear to contain iron. Started ferrous sulfate 325 mg p.o. daily. B12 769 and folate 18-within normal limits Trend H&H and monitor for acute bleeding (5) Leukocytosis: Code(s): D72.829 - Elevated white blood cell count, unspecified Status: Acute Assessment and Plan: WBC 14.3 without bandemia. patient is afebrile. UA shows slightly cloudy urine without nitrites or leukocytes, WBC 10-15 and trace bacteria, 3+ protein. He has no suprapubic or CVA tenderness on exam. UA is not significantly concerning for acute UTI. Hold antibiotics pending urine culture results. Chest x-ray negative for acute pulmonary disease No open wounds appreciated No complaints of diarrhea, abdominal pain, nausea vomiting. Trend CBC and monitor vital signs. Appears chronic. Monitor for s/s acute infection. (6) Weakness: Code(s): R53.1 - Weakness Status: Acute Assessment and Plan: Possibly secondary to worsening of CKD/uremia and anemia. B12 and folic acid within normal limits TSH within normal limits Iron panel suggests iron deficiency and will start iron supplement No signs or symptoms of hypoglycemia-continue Accu-Cheks a.c. HS No focal deficits. Continue to monitor neuro status and vital signs
--- NOTE | 2022-07-23 12:16 | WPDHPUPDATE1 ---
History and Physical Update Update Date/Time: 07/23/22 12:16 History and Physical has been reviewed, including an updated exam of the patient. There are NO changes in the patient's condition. Risks, benefits, and alternatives have been discussed and questions answered. Patient agrees to proceed with procedure.
[2022-07-23 12:17] LABS: Glucose Point of Care 106 mg/dl (65-105)
[2022-07-23] MEDS: SODIUM CHLORIDE 0.9% IV 500 ML 30 ML IV CONT (13:10)
--- NOTE | 2022-07-23 13:38 | WPDANESEPPF ---
Anes - Initial Pre Proc Eval Procedure: Operation Date: 07/23/22 14:30 Proposed Procedures p Insertion Duraflow Permacath Dialysis Tunneled Dialysis Catheter - Loly Brewer MD Date/Time: 07/23/22 13:38 Surgeon: Rosey Delarosa MD Pre Op Diagnosis: Kidney failure Patient Data Age: 41 Gender: M Height: 1.75 m Weight: 99.1 kg Last Vital Signs Temp 36.8 C 07/23/22 13:02 Pulse 69 07/23/22 13:02 Resp 18 07/23/22 13:02 BP 153/80 H 07/23/22 13:02 Pulse Ox 98 07/23/22 13:02 O2 Del Method Room Air 07/23/22 13:02 Allergies Allergy/AdvReac Type Severity Reaction Status Date / Time No Known Allergies Allergy Verified 07/21/22 19:11 Home Medications Medication Instructions Recorded Confirmed Type escitalopram oxalate 20 mg tablet 20 mg PO DAILY #90 tabs 09/11/21 07/21/22 Rx (Lexapro) amlodipine 10 mg tablet 10 mg PO DAILY 07/21/22 07/21/22 History calcitriol 0.25 mcg capsule 0.25 mcg PO DAILY 07/21/22 07/22/22 History cholecalciferol (vitamin D3) 25 1,000 unit PO DAILY 07/21/22 07/22/22 History mcg (1,000 unit) capsule (Vitamin D3) losartan 25 mg tablet 25 mg PO DAILY 07/21/22 07/22/22 History rosuvastatin 10 mg tablet 10 mg PO DAILY 07/21/22 07/22/22 History semaglutide 0.25 mg or 0.5 mg (2 0.25 mg subcut WEEKLY 07/21/22 07/22/22 History mg/1.5 mL) subcutaneous pen injector (Ozempic) sevelamer carbonate 800 mg tablet 800 mg PO TID 07/21/22 07/22/22 History vitamin B complex and vitamin C 1 cap PO DAILY 07/21/22 07/22/22 History no.20-folic acid 1 mg capsule (Sibley Caps) amlodipine 5 mg tablet 5 mg PO DAILY 07/22/22 07/21/22 History metoprolol succinate 50 mg PO DAILY 07/22/22 07/22/22 History Laboratory Tests 07/22/22 07/22/2207/23/22 17:16 21:54 05:15 WBC 14.0 K/mm3 H K/mm3 (4.5-10.0) RBC 3.74 M/mm3 L M/mm3 (4.6-6.20) Hgb 9.6 g/dL L g/dL (14.0-18.0) Hct 30.3 % L % (42.0-52.0) MCV 81.0 fl fl (80-100) MCH 25.7 pg L pg (26-34) MCHC 31.7 g/dl L g/dl (32-36) RDW 15.1 % H % (11.5-14.5) Plt Count 290 k/mm3 k/mm3 (150-375) MPV 8.3 fl fl (7.4-10.4) Sodium Potassium Chloride Carbon Dioxide Anion Gap BUN Creatinine Estim Creat Clear Calc Estimated GFR Glucose POC Capillary Glucose 84 mg/dl mg/dl 104 mg/dl mg/dl (65-105) (65-105) Calcium Phosphorus Magnesium Albumin 07/23/22 07/23/22 07/23/22 05:15 08:47 12:13 WBC RBC Hgb Hct MCV MCH MCHC RDW Plt Count MPV Sodium 139 mmol/L mmol/L (137-145) Potassium 4.1 mmol/L mmol/L (3.4-5.0) Chloride 109 mmol/L H mmol/L (98-107) Carbon Dioxide 16 mmol/L L mmol/L (22-30) Anion Gap 14 mmol/L mmol/L (8-16) BUN 97 mg/dL H mg/dL (9-20) Creatinine 9.00 mg/dL H mg/dL (0.7-1.3) Estim Creat Clear Calc 12 ml/min ml/min Estimated GFR 6 L (59 - ) Glucose 97 mg/dL mg/dL (65-110) POC Capillary Glucose 110 mg/dl H mg/dl 106 mg/dl H mg/dl (65-105) (65-105) Calcium 7.4 mg/dL L mg/dL (8.4-10.2) Phosphorus 10.3 mg/dL H mg/dL (2.5-4.5) Magnesium 2.2 mg/dL mg/dL (1.6-2.3) Albumin 4.1 g/dL g/dL (3.5-5.1) Patient hx anesthesia problems: none Family hx anesthesia problems: none Results Review: All pre-operative results and documents have been reviewed as part of the pre-operative evaluation. [facility] Past Medical History Medical History (Updated 07/23/22 @ 12:37 by Anni Graham MD) Diabetes Hypertension Non-compliance Loretta
[2022-07-23] MEDS: HEPARIN SODIUM 5,000 UNITS/ML VIAL 5000 UNITS IRRIGATION (15:14)
[2022-07-23] MEDS: HEPARIN SODIUM, PORCINE 10,000 UNITS/10 ML VIAL 10000 UNITS IRRIGATION (15:15)
--- NOTE | 2022-07-23 15:21 | W.PM.PROC2 ---
Procedure Note - Detailed Date of Procedure 07/23/22 Pre-op Diagnosis renal failure Post-op Diagnosis Same Procedure Performed placement of 28 cm tunneled hemodialysis catheter in right internal jugular vein under both ultrasound and fluroscopic guidance Surgeon Loly Brewer MD Anesthesia General and Local Indications 41 y/o M c CRF now with worsening renal failure requiring emergent hemodialysis Findings 1st stick RIJ Description of Procedure Patient was taken to the operating room and placed in the supine position. After adequate induction of general anesthesia, the patient was prepped and draped in normal sterile fashion. A time-out was then done to verify the patient's identity as well as the procedure being performed. I began by using the SonoSite and locating the right internal jugular vein. Once this was done, I localized the overlying skin. I then made a small incision in the skin. I then gained access into the right internal jugular vein with an 18 gauge needle. At this point, I threaded the guidewire into the right internal jugular vein. Placement of the guidewire was confirmed by both ultrasound and fluoroscopic guidance. I then went ahead and measured the 28 cm tunneled dialysis catheter to our stick site in the right neck. I then localized the tract going from the right chest to the right neck. I then made a small incision in the right chest and tunneled the catheter to the right neck. I then serially dilated the right internal jugular vein under fluoroscopic guidance. Once adequately dilated, I placed the dilating sheath over the guidewire into the right internal jugular vein under fluoroscopic visualization. Once this was noted to be in good position, I removed both the guidewire and dilator, now just leaving the sheath in the vein. I then went ahead and fed the previously tunneled catheter into the sheath. Once the catheter was fed and positioned correctly, I went ahead and peeled the sheath away. Final fluoroscopic view showed the catheter in good position from its insertion point in the right chest to its termination in the atrial caval junction. It was noted there was no kinking of the catheter. I was able to easily draw and flush from both ports of the catheter. I placed 2.2 and 2.3 cc of final heparin flush into each port as marked. The catheter was then sutured into place and the incision in the neck was closed with 4 O Monocryl subcuticular suture. The patient tolerated the procedure well and will be transferred to the ICU in critical condition. Sterile dressing was placed on the catheter. Portable chest x-ray will be done in the ICU. Implants 28 cm tunneled hemodialysis catheter Estimated Blood Loss 10 Drains No Packing No Pathology None sent Complications No immediate complications Condition Stable Disposition PACU [facility] Billing Surgery - Charge Forward: Surgery Billing
[2022-07-23 15:58] LABS: Glucose Point of Care 99 mg/dl (65-105)
--- NOTE | 2022-07-23 16:32 | PM.PNNEP ---
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 hospitalization s/p tunneled HD catheter placement HD today, tomorrow and likely day after follow electrolytes, volume status, and clearance will need outpatient dialysis arranged (2) Weakness: Code(s): R53.1 - Weakness Status: Chronic Assessment and Plan: suspect this is a manifestation of his uremia however, relative anemia could be playing a role as well follow symptoms once dialysis initiated (3) Hypertension: Qualifiers: Hypertension type: primary hypertension Qualified Code(s): I10 - Essential (primary) hypertension Code(s): I10 - Essential (primary) hypertension Status: Chronic Assessment and Plan: reasonable control at this time will adjust medications as needed BP control may improve further with dialysis initiation (4) Anemia: Qualifiers: Anemia type: iron deficiency Iron deficiency anemia type: unspecified iron deficiency Qualified Code(s): D50.9 - Iron deficiency anemia, unspecified Code(s): D64.9 - Anemia, unspecified Status: Chronic Assessment and Plan: likely related to ESRD and iron deficiency (anemia studies noted) Epogen and venofer with HD follow trend of H/H (5) Diabetes: Code(s): E11.9 - Type 2 diabetes mellitus without complications Status: Acute Assessment and Plan: follow acchecks glycemic control Will continue to follow. Subjective Date/time seen: 07/23/22 16:32 S/P tunneled HD catheter placement earlier today and tolerated the procedure reasonably well; waiting on dialysis treatment this afternoon; no other acute issues or problems voiced at this time; no issues/events overnight. Exam Narrative: General: WD/WN male in NAD Heart: normal S1 and S2; no rub Lungs: clear to auscultation Abdomen: soft, nontender, nondistended, positive bowel sounds Extremities: no cyanosis or clubbing; trace edema Skin: warm and dry Objective Data Vital Signs Vital Signs: Vital Signs Temp Pulse Resp BP Pulse Ox O2 Del Method O2 Flow Rate 07/23/22 16:30 77 20 128/79 97 Room Air 07/23/22 16:15 73 14 132/83 96 Room Air 07/23/22 16:00 74 24 H 126/78 100 Simple Face Mask 6 07/23/22 15:48 80 20 97/63 L 99 Simple Face Mask 6 07/23/22 15:45 71 21 H 92/57 L 99 Simple Face Mask 6 07/23/22 15:29 97.4 F L 70 22 H 85/52 L 99 Simple Face Mask 6 07/23/22 13:02 98.2 F 69 18 153/80 H 98 Room Air 07/23/22 08:28 Room Air 07/23/22 08:32 69 07/23/22 05:25 98.4 F 67 18 124/59 L 95 07/22/22 21:30 Room Air 07/22/22 21:00 98.0 F 75 17 156/79 H 96 Intake/Output Intake/Output: Intake & Output 07/20/22 07/21/22 07/22/22 07/23/22 23:59 23:59 23:59 23:59 Intake Total 400 1520 250 Output Total 450 1700 Balance 400 1070 -1450 Meds/Results Medications: Active Medications Generic Name Dose Route Start Last Admin Trade Name Freq PRN Reason Stop Dose Admin Acetaminophen 650 mg 07/22/22 07:36 Acetaminophen 325 Mg Tablet PO Q4H PRN Mild Pain (1-3) or Fever Amlodipine Besylate 10 mg 07/22/22 09:00 07/23/22 08:32 Amlodipine Besylate 5 Mg Tablet PO 10 mg DAILY DANA Administration Calcitriol 0.25 mcg 07/22/22 09:00 07/23/22 16:47 Calcitriol 0.25 Mcg Capsule PO 0.25 mcg DAILY DANA Administration Dextrose 12.5 gm 07/22/22 07:36 Dextrose 50% 25 Gm/50 Ml Syringe IV PUSH PRN PRN Hypoglycemia Protocol Epoetin Austin-epbx 10,000 units 07/23/22 22:48 Epoetin Austin-Epbx 10,000 Units/Ml Vial IV PUSH 07/23/22 22:49 ONCE ONE Escitalopram Oxa
--- NOTE | 2022-07-23 16:32 | P.PNNP_ITS ---
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 hospitalization * s/p tunneled HD catheter placement * HD today, tomorrow and likely day after * follow electrolytes, volume status, and clearance * will need outpatient dialysis arranged (2) Weakness: Code(s): R53.1 - Weakness Status: Chronic Assessment and Plan: * suspect this is a manifestation of his uremia * however, relative anemia could be playing a role as well * follow symptoms once dialysis initiated (3) Hypertension: Qualifiers: Hypertension type: primary hypertension Qualified Code(s): I10 - Essential (primary) hypertension Code(s): I10 - Essential (primary) hypertension Status: Chronic Assessment and Plan: * reasonable control at this time * will adjust medications as needed * BP control may improve further with dialysis initiation (4) Anemia: Qualifiers: Anemia type: iron deficiency Iron deficiency anemia type: unspecified iron deficiency Qualified Code(s): D50.9 - Iron deficiency anemia, unspecified Code(s): D64.9 - Anemia, unspecified Status: Chronic Assessment and Plan: * likely related to ESRD and iron deficiency (anemia studies noted) * Epogen and venofer with HD * follow trend of H/H (5) Diabetes: Code(s): E11.9 - Type 2 diabetes mellitus without complications Status: Acute Assessment and Plan: * follow acchecks * glycemic control Will continue to follow. Subjective Date/time seen: 07/23/22 16:32 S/P tunneled HD catheter placement earlier today and tolerated the procedure reasonably well; waiting on dialysis treatment this afternoon; no other acute issues or problems voiced at this time; no issues/events overnight. Exam Narrative: General: WD/WN male in NAD Heart: normal S1 and S2; no rub Lungs: clear to auscultation Abdomen: soft, nontender, nondistended, positive bowel sounds Extremities: no cyanosis or clubbing; trace edema Skin: warm and dry Objective Data Vital Signs Vital Signs: Vital Signs Temp Pulse Resp BP Pulse Ox O2 Del Method O2 Flow Rate 07/23/22 16:30 77 20 128/79 97 Room Air 07/23/22 16:15 73 14 132/83 96 Room Air 07/23/22 16:00 74 24 H 126/78 100 Simple Face Mask 6 07/23/22 15:48 80 20 97/63 L 99 Simple Face Mask 6 07/23/22 15:45 71 21 H 92/57 L 99 Simple Face Mask 6 07/23/22 15:29 97.4 F L 70 22 H 85/52 L 99 Simple Face Mask 6 07/23/22 13:02 98.2 F 69 18 153/80 H 98 Room Air 07/23/22 08:28 Room Air 07/23/22 08:32 69 07/23/22 05:25 98.4 F 67 18 124/59 L 95 07/22/22 21:30 Room Air 07/22/22 21:00 98.0 F 75 17 156/79 H 96 Intake/Output Intake/Output: Intake & Output 07/20/22 07/21/22 07/22/22 07/23/22 23:59 23:59 23:59 23:59 Intake Total 400 1520 250 Output Total 450 1700 Balance 400 1070 -1450 Meds/Results Medications: Active Me
[2022-07-23] MEDS: ESCITALOPRAM OXALATE 10 MG TABLET 20 MG PO (16:46)
[2022-07-23] MEDS: calcitrioL 0.25 MCG CAPSULE PO (16:47)
[2022-07-23] MEDS: SODIUM BICARBONATE TAB 650 MG TABLET PO (16:47)
[2022-07-23] MEDS: ROSUVASTATIN 10 MG TABLET PO (16:47)
[2022-07-23] MEDS: FERROUS SULFATE 324 MG TABLET PO (16:47)
[2022-07-23] MEDS: VITAMIN B CMPLX/VIT C/FOLIC AC 1 CAPSULE 1 CAP PO (16:47)
[2022-07-23] MEDS: CHOLECALCIFEROL 1,000 UNITS TABLET 1000 UNITS PO (16:47)
--- NOTE | 2022-07-23 16:49 | PC.NURSE ---
Patient returned from OR at 1647 07/23/22.
[2022-07-23 17:28] LABS: Glucose Point of Care 85 mg/dl (65-105)
[2022-07-23] MEDS: SEVELAMER CARBONATE 800 MG TABLET 1600 MG PO (18:15)
[2022-07-23] MEDS: ACETAMINOPHEN 325 MG TABLET 650 MG PO (22:04)
[2022-07-23 22:43] LABS: Glucose Point of Care 97 mg/dl (65-105)
[2022-07-24] VITALS (15 sets, daily range): BP systolic 138–160; BP diastolic 65–91; PULSE 66–76; RESP 16–20; TEMP 36–36.8; O2SAT 94–96
[2022-07-24 06:18] LABS: Albumin Level 4.1 g/dL (3.5-5.1); Anion Gap 12 mmol/L (8-16); Blood Urea Nitrogen 70 mg/dL (9-20); Calcium 7.9 mg/dL (8.4-10.2); Carbon Dioxide 23 mmol/L (22-30); Chloride 99 mmol/L (98-107); Estimated CRCL calculation 15 ml/min; Estimated Glomerular Filt Rate 9; Glucose 96 mg/dL (65-110); Magnesium 1.9 mg/dL (1.6-2.3); Phosphorus 8.7 mg/dL (2.5-4.5); Sodium 134 mmol/L (137-145)
[2022-07-24] MEDS: VITAMIN B CMPLX/VIT C/FOLIC AC 1 CAPSULE 1 CAP PO (08:06)
[2022-07-24] MEDS: METOPROLOL SUCCINATE EXT REL 50 MG TABCR PO (08:06)
[2022-07-24] MEDS: calcitrioL 0.25 MCG CAPSULE PO (08:06)
[2022-07-24] MEDS: CHOLECALCIFEROL 1,000 UNITS TABLET 1000 UNITS PO (08:06)
[2022-07-24] MEDS: ESCITALOPRAM OXALATE 10 MG TABLET 20 MG PO (08:06)
[2022-07-24] MEDS: amLODIPine BESYLATE 5 MG TABLET 10 MG PO (08:06)
[2022-07-24] MEDS: ROSUVASTATIN 10 MG TABLET PO (08:07)
[2022-07-24] MEDS: FERROUS SULFATE 324 MG TABLET PO (08:07)
[2022-07-24 08:46] LABS: Glucose Point of Care 98 mg/dl (65-105)
[2022-07-24] MEDS: SEVELAMER CARBONATE 800 MG TABLET 1600 MG PO ×3 (09:54→17:28)
[2022-07-24] MEDS: SODIUM CHLORIDE 0.9% IV 1,000 ML 999 ML IV CONT (09:58)
[2022-07-24] MEDS: EPOETIN ALFA-EPBX 10,000 UNITS/ML VIAL 10000 UNITS IV PUSH (09:58)
--- NOTE | 2022-07-24 10:15 | WPDANESPN ---
Anes - Prog Note Post-Op Date/Time: 07/24/22 10:15 Cardiovascular status: normal Respiratory status: normal Airway patency: baseline Mental status: baseline Post-Op hydration status: normal Vital Signs: Last Vital Signs Temp 36.8 C 07/24/22 08:55 Pulse 71 07/24/22 09:50 Resp 16 07/24/22 08:55 BP 150/78 H 07/24/22 09:50 Pulse Ox 95 07/24/22 05:24 O2 Del Method Room Air 07/23/22 21:50 O2 Flow Rate 6 07/23/22 16:00 Pain Score (VAS): 0 I/O: Intake & Output 07/23/22 07/24/22 07/24/22 23:59 07:59 15:59 Intake Total 1760 250 740 Output Total 1700 200 Balance 60 50 740 Laboratory Tests 07/23/22 05:15 07/24/22 05:45 07/23/22 07/23/22 07/23/22 12:13 15:55 17:23 Sodium Potassium Chloride Carbon Dioxide Anion Gap BUN Creatinine Estim Creat Clear Calc Estimated GFR Glucose POC Capillary Glucose 106 H 99 85 Calcium Phosphorus Magnesium Albumin 07/23/22 07/24/22 07/24/22 22:01 05:45 08:39 Sodium 134 L Potassium 4.0 Chloride 99 Carbon Dioxide 23 Anion Gap 12 BUN 70 H D Creatinine 6.90 H Estim Creat Clear Calc 15 Estimated GFR 9 L Glucose 96 POC Capillary Glucose 97 98 Calcium 7.9 L Phosphorus 8.7 H Magnesium 1.9 Albumin 4.1 Post-procedural complaints: none Patient Feedback: Patient satisfied with anesthetic care.
--- NOTE | 2022-07-24 10:16 | PC.NURSE ---
Patient to dialysis at 0900 07/24/22.
--- NOTE | 2022-07-24 11:57 | P.PNNP_ITS ---
Progress Note: A&P Assessment and Plan (1) End stage renal disease: Code(s): N18.6 - End stage renal disease Status: Chronic Assessment and Plan: * due to progression of disease secondary to his diabetic nephropathy * s/p tunneled HD catheter placement (on 07/23/22) * HD today to complete 3-day initiation * follow electrolytes, volume status, and clearance * will need outpatient dialysis arranged prior to discharge (2) Weakness: Code(s): R53.1 - Weakness Status: Chronic Assessment and Plan: * suspect this is a manifestation of his uremia * however, relative anemia could be playing a role as well * follow symptoms once dialysis initiated (3) Hypertension: Qualifiers: Hypertension type: primary hypertension Qualified Code(s): I10 - Essential (primary) hypertension Code(s): I10 - Essential (primary) hypertension Status: Chronic Assessment and Plan: * reasonable control at this time * will adjust medications as needed * BP control may improve further with dialysis initiation (4) Anemia: Qualifiers: Anemia type: iron deficiency Iron deficiency anemia type: unspecified iron deficiency Qualified Code(s): D50.9 - Iron deficiency anemia, unspecified Code(s): D64.9 - Anemia, unspecified Status: Chronic Assessment and Plan: * likely related to ESRD and iron deficiency (anemia studies noted) * Epogen and venofer with HD * follow trend of H/H (5) Diabetes: Code(s): E11.9 - Type 2 diabetes mellitus without complications Status: Acute Assessment and Plan: * follow acchecks * glycemic control Will continue to follow. Subjective Date/time seen: 07/24/22 11:57 Tolerated dialysis treatment yesterday evening; tolerating current dialysis treatment at this time without issues or problems (seen on HD at 11:40AM); no apparent distress noted at this time; no issues/events overnight or earlier this today. Exam Narrative: General: WD/WN male in NAD Heart: normal S1 and S2; no rub Lungs: clear to auscultation Abdomen: soft, nontender, nondistended, positive bowel sounds Extremities: no cyanosis or clubbing; trace edema Skin: warm and intact Objective Data Vital Signs Vital Signs: Vital Signs Temp Pulse Resp BP Pulse Ox O2 Del Method O2 Flow Rate 07/24/22 11:48 98.1 F 66 16 150/82 H 07/24/22 11:38 70 149/80 H 07/24/22 11:30 66 142/82 H 07/24/22 11:10 68 151/86 H 07/24/22 10:50 67 138/75 07/24/22 10:30 68 138/76 07/24/22 10:10 68 145/76 H 07/24/22 08:04 Room Air 07/24/22 09:50 71 150/78 H 07/24/22 09:30 70 160/91 H 07/24/22 08:55 98.2 F 71 16 157/84 H 07/24/22 09:08 73 150/88 H 07/24/22 08:06 67 07/24/22 05:24 98.2 F 70 18 147/82 H 95 07/23/22 21:50 Room Air 07/23/22 21:45 98.4 F 72 18 161/85 H 96 07/23/22 20:50 97.9 F 68 16 162/90 H 07/23/22 20:49 71 161/90 H 07/23/22 20:40 68 153/85 H 07/23/22 20:20 68 157/89 H 07/23/22 20:00 67 160/91 H 07/23/22 19:40 68 157/89 H 07/23/22 19:20 66 158/86 H 07/23/22 19:00 70 152/92 H
--- NOTE | 2022-07-24 11:57 | PM.PNNEP ---
Progress Note: A&P Assessment and Plan (1) End stage renal disease: Code(s): N18.6 - End stage renal disease Status: Chronic Assessment and Plan: due to progression of disease secondary to his diabetic nephropathy s/p tunneled HD catheter placement (on 07/23/22) HD today to complete 3-day initiation follow electrolytes, volume status, and clearance will need outpatient dialysis arranged prior to discharge (2) Weakness: Code(s): R53.1 - Weakness Status: Chronic Assessment and Plan: suspect this is a manifestation of his uremia however, relative anemia could be playing a role as well follow symptoms once dialysis initiated (3) Hypertension: Qualifiers: Hypertension type: primary hypertension Qualified Code(s): I10 - Essential (primary) hypertension Code(s): I10 - Essential (primary) hypertension Status: Chronic Assessment and Plan: reasonable control at this time will adjust medications as needed BP control may improve further with dialysis initiation (4) Anemia: Qualifiers: Anemia type: iron deficiency Iron deficiency anemia type: unspecified iron deficiency Qualified Code(s): D50.9 - Iron deficiency anemia, unspecified Code(s): D64.9 - Anemia, unspecified Status: Chronic Assessment and Plan: likely related to ESRD and iron deficiency (anemia studies noted) Epogen and venofer with HD follow trend of H/H (5) Diabetes: Code(s): E11.9 - Type 2 diabetes mellitus without complications Status: Acute Assessment and Plan: follow acchecks glycemic control Will continue to follow. Subjective Date/time seen: 07/24/22 11:57 Tolerated dialysis treatment yesterday evening; tolerating current dialysis treatment at this time without issues or problems (seen on HD at 11:40AM); no apparent distress noted at this time; no issues/events overnight or earlier this today. Exam Narrative: General: WD/WN male in NAD Heart: normal S1 and S2; no rub Lungs: clear to auscultation Abdomen: soft, nontender, nondistended, positive bowel sounds Extremities: no cyanosis or clubbing; trace edema Skin: warm and intact Objective Data Vital Signs Vital Signs: Vital Signs Temp Pulse Resp BP Pulse Ox O2 Del Method O2 Flow Rate 07/24/22 11:48 98.1 F 66 16 150/82 H 07/24/22 11:38 70 149/80 H 07/24/22 11:30 66 142/82 H 07/24/22 11:10 68 151/86 H 07/24/22 10:50 67 138/75 07/24/22 10:30 68 138/76 07/24/22 10:10 68 145/76 H 07/24/22 08:04 Room Air 07/24/22 09:50 71 150/78 H 07/24/22 09:30 70 160/91 H 07/24/22 08:55 98.2 F 71 16 157/84 H 07/24/22 09:08 73 150/88 H 07/24/22 08:06 67 07/24/22 05:24 98.2 F 70 18 147/82 H 95 07/23/22 21:50 Room Air 07/23/22 21:45 98.4 F 72 18 161/85 H 96 07/23/22 20:50 97.9 F 68 16 162/90 H 07/23/22 20:49 71 161/90 H 07/23/22 20:40 68 153/85 H 07/23/22 20:20 68 157/89 H 07/23/22 20:00 67 160/91 H 07/23/22 19:40 68 157/89 H 07/23/22 19:20 66 158/86 H 07/23/22 19:00 70 152/92 H 07/23/22 18:43 69 158/89 H 07/23/22 18:37 97.9 F 69 18 158/93 H 07/23/22 17:29 97.7 F 72 18 143/87 H 98 07/23/22 16:45 97.7 F 74 20 141/80 H 98 07/23/22 16:30 77 20 128/79 97 Room Air 07/23/22 16:15 73 14 132/83 96 Room Air 07/23/22 16:00 74 24 H 126/78 100 Simple Face Mask 6 07/23/22 15:48 80 20 97/63 L 99 Simple Face Mask 6 07/23/22 15:45 71 21 H 92/57 L 99 Simple Face Mask 6 07/23/22 15:29 97.4 F L 70 22 H 85/52 L 99 Simple Face Mask 6 07/23/22 13:02 98.2 F 69 18 153/80 H 98 Room Air Intake/Output Intake/Output: Intake & Output 07/21/22 07/22/22 07/23/22 07/24/22 23:59 23:59 23:59 23:59 Intak
[2022-07-24] MEDS: LOSARTAN POTASSIUM 25 MG TABLET PO (12:20)
[2022-07-24 12:24] LABS: Glucose Point of Care 103 mg/dl (65-105)
--- NOTE | 2022-07-24 13:07 | PM.IMPN ---
Progress Note: A&P Assessment and Plan (1) Acute kidney injury superimposed on CKD: Code(s): N17.9 - Acute kidney failure, unspecified; N18.9 - Chronic kidney disease, unspecified Status: Acute Assessment and Plan: Patient presented to the emergency department with complaints of generalized weakness and fatigue. He has a history of chronic kidney disease and sees Dr. Lanier at [facility], Nephrology. CKD stage 5 BUN 101, creatinine 9, GFR 6, potassium 4.1, sodium 139, chloride 107, carbon dioxide 17 anion gap 15, glucose 135, magnesium 2.4, calcium 7.5. Prior labs from 04/29-05/29 showed BUN 62-83 and creatinine 3.8-4.6, eGFR 14-18. Nephrology consulted and appreciate recommendations Monitor renal function Phosphorus 10.2, calcium 7.3, on 07/22 increase sevelamer to 1600 mg TID Continue vitamin D3, calcitriol, and tight glucose and BP control-losartan resumed. Continue amlodipine 07/23 dialysis catheter to be placed today by general surgery for emergent dialysis. 07/24 patient underwent hemodialysis on 07/23 with approximately 500 mL removed and tolerated it well. He had repeat dialysis again today with 1250 mL removed. He reports symptoms are improving (2) Hypertension: Qualifiers: Hypertension type: primary hypertension Qualified Code(s): I10 - Essential (primary) hypertension Code(s): I10 - Essential (primary) hypertension Status: Chronic Assessment and Plan: Chronic, BP 144/65 continue amlodipine, Toprol XL and losartan at home doses (3) Diabetes: Qualifiers: Chronic kidney disease stage: stage 5, not on chronic dialysis Diabetes mellitus complication detail: with chronic kidney disease Diabetes mellitus complication status: with kidney complications Diabetes mellitus long wall shear operator insulin use: without long wall shear operator use Diabetes mellitus type: type 2 Qualified Code(s): E11.22 - Type 2 diabetes mellitus with diabetic chronic kidney disease; N18.5 - Chronic kidney disease, stage 5 Code(s): E11.9 - Type 2 diabetes mellitus without complications Status: Chronic Assessment and Plan: Chronic, stable. A1c 6.1% Hold semaglutide while inpatient Continue Accu-Cheks a.c. HS with low-dose insulin sliding scale t.i.d. with meals Stable (4) Anemia: Qualifiers: Anemia type: iron deficiency Iron deficiency anemia type: unspecified iron deficiency Qualified Code(s): D50.9 - Iron deficiency anemia, unspecified Code(s): D64.9 - Anemia, unspecified Status: Chronic Assessment and Plan: Chronic, hemoglobin 9 0.4-9.8. Prior levels in 2020 10-12. Likely multifactorial secondary to iron deficiency and chronic kidney disease Serum iron 36, TIBC 247, saturation 15%, ferritin 104. He reports starting a multivitamin with iron in the past week however renal caps does not appear to contain iron. Started on ferrous sulfate 325 mg p.o. daily this admission B12 769 and folate 18-within normal limits Trend H&H and monitor for acute bleeding Epogen per Nephrology (5) Leukocytosis: Qualifiers: Leukocytosis type: unspecified Qualified Code(s): D72.829 - Elevated white blood cell count, unspecified Code(s): D72.829 - Elevated white blood cell count, unspecified Status: Acute Assessment and Plan: WBC 14.3 without bandemia. patient is afebrile. UA shows slightly cloudy urine without nitrites or leukocytes, WBC 10-15 and trace bacteria, 3+ protein. He has no suprapubic or CVA tenderness on exam. UA is not significantly concerning for acute UTI. Hold antibiotics pending urine culture results. Chest x-ray negative for acute pulmonary disease No open wounds appreciated No complaints of diarrhea, abdominal pain, nausea vomiting. Trend CBC and monitor vital signs. Appears chronic. Monitor for s/s acute infection. Appears stable (6) Weakness: Code(s): R53.1 - Weakness Status: Acute Assessment and Plan:
[2022-07-24 17:59] LABS: Glucose Point of Care 94 mg/dl (65-105)
[2022-07-24 21:40] LABS: Glucose Point of Care 147 mg/dl (65-105)
[2022-07-25] VITALS (17 sets, daily range): BP systolic 134–174; BP diastolic 69–92; PULSE 69–81; RESP 16–20; TEMP 36–37.1; O2SAT 95–96
[2022-07-25 05:37] LABS: Albumin Level 4.1 g/dL (3.5-5.1); Anion Gap 13 mmol/L (8-16); Blood Urea Nitrogen 56 mg/dL (9-20); Calcium 7.9 mg/dL (8.4-10.2); Carbon Dioxide 25 mmol/L (22-30); Chloride 99 mmol/L (98-107); Estimated CRCL calculation 16 ml/min; Estimated Glomerular Filt Rate 10; Glucose 102 mg/dL (65-110); Magnesium 2.1 mg/dL (1.6-2.3); Potassium 3.8 mmol/L (3.4-5.0); Sodium 137 mmol/L (137-145)
[2022-07-25 08:28] LABS: Glucose Point of Care 97 mg/dl (65-105)
[2022-07-25] MEDS: ROSUVASTATIN 10 MG TABLET PO (09:36)
[2022-07-25] MEDS: calcitrioL 0.25 MCG CAPSULE PO (09:36)
[2022-07-25] MEDS: LOSARTAN POTASSIUM 25 MG TABLET PO (09:36)
[2022-07-25] MEDS: VITAMIN B CMPLX/VIT C/FOLIC AC 1 CAPSULE 1 CAP PO (09:36)
[2022-07-25] MEDS: FERROUS SULFATE 324 MG TABLET PO (09:36)
[2022-07-25] MEDS: ESCITALOPRAM OXALATE 10 MG TABLET 20 MG PO (09:36)
[2022-07-25] MEDS: METOPROLOL SUCCINATE EXT REL 50 MG TABCR PO (09:36)
[2022-07-25] MEDS: CHOLECALCIFEROL 1,000 UNITS TABLET 1000 UNITS PO (09:36)
[2022-07-25] MEDS: SEVELAMER CARBONATE 800 MG TABLET 1600 MG PO ×2 (09:37→16:30)
--- NOTE | 2022-07-25 09:38 | PM.IMPN ---
Progress Note: A&P Assessment and Plan (1) Acute kidney injury superimposed on CKD: Code(s): N17.9 - Acute kidney failure, unspecified; N18.9 - Chronic kidney disease, unspecified Status: Acute Assessment and Plan: Patient presented to the emergency department with complaints of generalized weakness and fatigue. He has a history of chronic kidney disease and sees Dr. Lanier at [facility], Nephrology. CKD stage 5 BUN 101, creatinine 9, GFR 6, potassium 4.1, sodium 139, chloride 107, carbon dioxide 17 anion gap 15, glucose 135, magnesium 2.4, calcium 7.5. Prior labs from 04/29-05/29 showed BUN 62-83 and creatinine 3.8-4.6, eGFR 14-18. Nephrology consulted and appreciate recommendations Monitor renal function Phosphorus 10.2, calcium 7.3, on 07/22 increase sevelamer to 1600 mg TID Continue vitamin D3, calcitriol, and tight glucose and BP control-losartan resumed. Continue amlodipine 07/23 dialysis catheter to be placed today by general surgery for emergent dialysis. 07/24 patient underwent hemodialysis on 07/23 with approximately 500 mL removed and tolerated it well. He had repeat dialysis again today with <del>1250</del> <del>mL</del> 700 mL removed. He reports symptoms are improving 07/25 patient to have HD again today. Stable. (2) Hypertension: Qualifiers: Hypertension type: primary hypertension Qualified Code(s): I10 - Essential (primary) hypertension Code(s): I10 - Essential (primary) hypertension Status: Chronic Assessment and Plan: Chronic, BP 144/65 continue amlodipine, Toprol XL and losartan at home doses (3) Diabetes: Qualifiers: Chronic kidney disease stage: stage 5, not on chronic dialysis Diabetes mellitus complication detail: with chronic kidney disease Diabetes mellitus complication status: with kidney complications Diabetes mellitus terminal supervisor insulin use: without jail use Diabetes mellitus type: type 2 Qualified Code(s): E11.22 - Type 2 diabetes mellitus with diabetic chronic kidney disease; N18.5 - Chronic kidney disease, stage 5 Code(s): E11.9 - Type 2 diabetes mellitus without complications Status: Chronic Assessment and Plan: Chronic, stable. A1c 6.1% Hold semaglutide while inpatient Continue Accu-Cheks a.c. HS with low-dose insulin sliding scale t.i.d. with meals Stable (4) Anemia: Qualifiers: Anemia type: iron deficiency Iron deficiency anemia type: unspecified iron deficiency Qualified Code(s): D50.9 - Iron deficiency anemia, unspecified Code(s): D64.9 - Anemia, unspecified Status: Chronic Assessment and Plan: Chronic, hemoglobin 9 0.4-9.8. Prior levels in 2020 10-12. Likely multifactorial secondary to iron deficiency and chronic kidney disease Serum iron 36, TIBC 247, saturation 15%, ferritin 104. He reports starting a multivitamin with iron in the past week however renal caps does not appear to contain iron. Started on ferrous sulfate 325 mg p.o. daily this admission B12 769 and folate 18-within normal limits Trend H&H and monitor for acute bleeding Epogen and IV venofer x 1 per Nephrology Stable (5) Leukocytosis: Qualifiers: Leukocytosis type: unspecified Qualified Code(s): D72.829 - Elevated white blood cell count, unspecified Code(s): D72.829 - Elevated white blood cell count, unspecified Status: Acute Assessment and Plan: WBC 14.3 without bandemia. patient is afebrile. UA shows slightly cloudy urine without nitrites or leukocytes, WBC 10-15 and trace bacteria, 3+ protein. He has no suprapubic or CVA tenderness on exam. UA is not significantly concerning for acute UTI. Hold antibiotics pending urine culture results. Chest x-ray negative for acute pulmonary disease No open wounds appreciated No complaints of diarrhea, abdominal pain, nausea vomiting. Trend CBC and monitor vital signs. Appears chronic. Monitor for s/s acute infection. Appears s
[2022-07-25 12:21] LABS: Glucose Point of Care 163 mg/dl (65-105)
[2022-07-25 12:26] LABS: Hepatitis B Core Ab Total Nonreactive (Nonreactive)
--- NOTE | 2022-07-25 16:58 | PC.NURSE ---
pt to dialysis via bed
[2022-07-25 17:23] LABS: Glucose Point of Care 103 mg/dl (65-105)
--- NOTE | 2022-07-25 17:36 | P.PNNP_ITS ---
Progress Note: A&P Assessment and Plan (1) End stage renal disease: Code(s): N18.6 - End stage renal disease Status: Chronic Assessment and Plan: * due to progression of disease secondary to his diabetic nephropathy * s/p tunneled HD catheter placement (on 07/23/22) * HD today to complete 3-day initiation * follow electrolytes, volume status, and clearance * will need outpatient dialysis arranged prior to discharge (2) Weakness: Code(s): R53.1 - Weakness Status: Chronic Assessment and Plan: * suspect this is a manifestation of his uremia * however, relative anemia could be playing a role as well * follow symptoms once dialysis initiated (3) Hypertension: Qualifiers: Hypertension type: primary hypertension Qualified Code(s): I10 - Essential (primary) hypertension Code(s): I10 - Essential (primary) hypertension Status: Chronic Assessment and Plan: * reasonable control at this time * will adjust medications as needed * BP control may improve further with dialysis initiation (4) Anemia: Qualifiers: Anemia type: iron deficiency Iron deficiency anemia type: unspecified iron deficiency Qualified Code(s): D50.9 - Iron deficiency anemia, unspecified Code(s): D64.9 - Anemia, unspecified Status: Chronic Assessment and Plan: * likely related to ESRD and iron deficiency (anemia studies noted) * Epogen and venofer with HD * follow trend of H/H (5) Diabetes: Code(s): E11.9 - Type 2 diabetes mellitus without complications Status: Acute Assessment and Plan: * follow acchecks * glycemic control Will continue to follow. Subjective Date/time seen: 07/25/22 17:36 Tolerating dialysis treatment at the time of my visit (seen on HD at ~ 5:30PM); no other acute issues or problems to report at this time; overall, feels reasonably well. Exam Narrative: General: WD/WN male in NAD Heart: normal S1 and S2; no rub Lungs: clear to auscultation Abdomen: soft, nontender, nondistended, positive bowel sounds Extremities: no cyanosis or clubbing; trace edema Skin: no rash Objective Data Vital Signs Vital Signs: Vital Signs Temp Pulse Resp BP Pulse Ox O2 Del Method 07/25/22 17:20 72 144/85 H 07/25/22 16:55 98.3 F 75 16 156/91 H 07/25/22 14:00 98.0 F 69 20 154/87 H 96 07/25/22 08:20 75 07/25/22 09:36 98.8 F 75 134/69 07/25/22 05:43 20 07/24/22 20:41 98.3 F 145/76 H 96 Intake/Output Intake/Output: Intake & Output 07/22/22 07/23/22 07/24/22 07/25/22 23:59 23:59 23:59 23:59 Intake Total 1520 1760 2160 650 Output Total 450 3400 1800 200 Balance 1070 -1640 360 450 Meds/Results Medications: Active Medications Generic Name Dose Route Start Last Admin Trade Name Freq PRN Reason Stop Dose Admin Acetaminophen 650 mg 07/22/22 07:36 07/23/22 22:04 Acetaminophen 325 Mg Tablet PO 650 mg Q4H PRN Administration Mild Pain (1-3) or Fever Calcitriol 0.25 mcg 07/22/22 09:00 07/25/22 09:36 Calcitriol 0.25 Mcg Capsule PO 0.25 mcg DAILY DANA Administration Dextrose 12.5 gm 07/22/22 07:36
--- NOTE | 2022-07-25 17:36 | PM.PNNEP ---
Progress Note: A&P Assessment and Plan (1) End stage renal disease: Code(s): N18.6 - End stage renal disease Status: Chronic Assessment and Plan: due to progression of disease secondary to his diabetic nephropathy s/p tunneled HD catheter placement (on 07/23/22) HD today to complete 3-day initiation follow electrolytes, volume status, and clearance will need outpatient dialysis arranged prior to discharge (2) Weakness: Code(s): R53.1 - Weakness Status: Chronic Assessment and Plan: suspect this is a manifestation of his uremia however, relative anemia could be playing a role as well follow symptoms once dialysis initiated (3) Hypertension: Qualifiers: Hypertension type: primary hypertension Qualified Code(s): I10 - Essential (primary) hypertension Code(s): I10 - Essential (primary) hypertension Status: Chronic Assessment and Plan: reasonable control at this time will adjust medications as needed BP control may improve further with dialysis initiation (4) Anemia: Qualifiers: Anemia type: iron deficiency Iron deficiency anemia type: unspecified iron deficiency Qualified Code(s): D50.9 - Iron deficiency anemia, unspecified Code(s): D64.9 - Anemia, unspecified Status: Chronic Assessment and Plan: likely related to ESRD and iron deficiency (anemia studies noted) Epogen and venofer with HD follow trend of H/H (5) Diabetes: Code(s): E11.9 - Type 2 diabetes mellitus without complications Status: Acute Assessment and Plan: follow acchecks glycemic control Will continue to follow. Subjective Date/time seen: 07/25/22 17:36 Tolerating dialysis treatment at the time of my visit (seen on HD at ~ 5:30PM); no other acute issues or problems to report at this time; overall, feels reasonably well. Exam Narrative: General: WD/WN male in NAD Heart: normal S1 and S2; no rub Lungs: clear to auscultation Abdomen: soft, nontender, nondistended, positive bowel sounds Extremities: no cyanosis or clubbing; trace edema Skin: no rash Objective Data Vital Signs Vital Signs: Vital Signs Temp Pulse Resp BP Pulse Ox O2 Del Method 07/25/22 17:20 72 144/85 H 07/25/22 16:55 98.3 F 75 16 156/91 H 07/25/22 14:00 98.0 F 69 20 154/87 H 96 07/25/22 08:20 75 07/25/22 09:36 98.8 F 75 134/69 07/25/22 05:43 20 07/24/22 20:41 98.3 F 145/76 H 96 Intake/Output Intake/Output: Intake & Output 07/22/22 07/23/22 07/24/22 07/25/22 23:59 23:59 23:59 23:59 Intake Total 1520 1760 2160 650 Output Total 450 3400 1800 200 Balance 1070 -1640 360 450 Meds/Results Medications: Active Medications Generic Name Dose Route Start Last Admin Trade Name Freq PRN Reason Stop Dose Admin Acetaminophen 650 mg 07/22/22 07:36 07/23/22 22:04 Acetaminophen 325 Mg Tablet PO 650 mg Q4H PRN Administration Mild Pain (1-3) or Fever Calcitriol 0.25 mcg 07/22/22 09:00 07/25/22 09:36 Calcitriol 0.25 Mcg Capsule PO 0.25 mcg DAILY DANA Administration Dextrose 12.5 gm 07/22/22 07:36 Dextrose 50% 25 Gm/50 Ml Syringe IV PUSH PRN PRN Hypoglycemia Protocol Epoetin [place]-epbx 10,000 units 07/25/22 21:09 Epoetin [place]-Epbx 10,000 Units/Ml Vial IV PUSH 07/25/22 21:10 ONCE ONE Escitalopram Oxalate 20 mg 07/22/22 09:00 07/25/22 09:36 Escitalopram Oxalate 10 Mg Tablet PO 20 mg DAILY DANA Administration Ferrous Sulfate 324 mg 07/23/22 08:00 07/25/22 09:36 Ferrous Sulfate 324 Mg Tablet PO 324 mg DAILY@0800 DANA Administration Glucagon 1 mg 07/22/22 07:36 Glucagon For Inj 1 Mg Vial IM PRN PRN Hypoglycemia Protocol Glucose 15 gm 07/22/22 07:36 Glucose Oral Gel 15 Gm Of Glucse In 37.5 Gm Tube PO PRN PRN Hypoglycemia Protocol Dextrose 1,000 mls @ 100 m
--- NOTE | 2022-07-25 21:30 | PC.NURSE ---
Pt returned via bed from dialysis. Pt alert and oriented x3. No complaints of pain.
[2022-07-25 21:45] LABS: Glucose Point of Care 153 mg/dl (65-105)
[2022-07-26 03:18] VITALS: PULSE 79; RESP 14; O2SAT 95
[2022-07-26 06:00] VITALS: BP 122/73; PULSE 74; RESP 18; TEMP 36.7; O2SAT 97
[2022-07-26 06:20] LABS: Hematocrit 33.2 % (42.0-52.0); Hemoglobin 10.4 g/dL (14.0-18.0); Mean Corpuscular HGB Conc 31.3 g/dl (32-36); Mean Corpuscular Hemoglobin 25.2 pg (26-34); Mean Corpuscular Volume 80.6 fl (80-100); Mean Platelet Volume 8.4 fl (7.4-10.4); Platelet Count Result 295 k/mm3 (150-375); Red Blood Count 4.12 M/mm3 (4.6-6.20); Red Cell Distribution Width 14.7 % (11.5-14.5); White Blood Count 14.2 K/mm3 (4.5-10.0)
[2022-07-26 06:37] LABS: Albumin Level 4.2 g/dL (3.5-5.1); Anion Gap 13 mmol/L (8-16); Blood Urea Nitrogen 41 mg/dL (9-20); Calcium 8.5 mg/dL (8.4-10.2); Carbon Dioxide 25 mmol/L (22-30); Chloride 100 mmol/L (98-107); Estimated CRCL calculation 20 ml/min; Estimated Glomerular Filt Rate 12; Glucose 96 mg/dL (65-110); Magnesium 2.3 mg/dL (1.6-2.3); Phosphorus 6.6 mg/dL (2.5-4.5); Potassium 3.9 mmol/L (3.4-5.0); Sodium 138 mmol/L (137-145)
[2022-07-26 08:00] VITALS: PULSE 74; RESP 18; O2SAT 97
[2022-07-26 08:27] LABS: Glucose Point of Care 91 mg/dl (65-105)
[2022-07-26 09:37] VITALS: PULSE 74
[2022-07-26] MEDS: VITAMIN B CMPLX/VIT C/FOLIC AC 1 CAPSULE 1 CAP PO (09:37)
[2022-07-26] MEDS: ROSUVASTATIN 10 MG TABLET PO (09:37)
[2022-07-26] MEDS: FERROUS SULFATE 324 MG TABLET PO (09:37)
[2022-07-26] MEDS: ESCITALOPRAM OXALATE 10 MG TABLET 20 MG PO (09:37)
[2022-07-26] MEDS: LOSARTAN POTASSIUM 25 MG TABLET PO (09:37)
[2022-07-26] MEDS: METOPROLOL SUCCINATE EXT REL 50 MG TABCR PO (09:37)
[2022-07-26] MEDS: calcitrioL 0.25 MCG CAPSULE PO (09:38)
[2022-07-26] MEDS: CHOLECALCIFEROL 1,000 UNITS TABLET 1000 UNITS PO (09:38)
[2022-07-26] MEDS: SEVELAMER CARBONATE 800 MG TABLET 1600 MG PO ×3 (09:38→17:17)
[2022-07-26 12:27] LABS: Glucose Point of Care 163 mg/dl (65-105)
--- NOTE | 2022-07-26 13:00 | PM.PNNEP ---
Progress Note: A&P Assessment and Plan (1) End stage renal disease: Code(s): N18.6 - End stage renal disease Status: Chronic Assessment and Plan: due to progression of disease secondary to his diabetic nephropathy s/p tunneled HD catheter placement (on 07/23/22) HD tomorrow follow electrolytes, volume status, and clearance will need outpatient dialysis arranged prior to discharge (2) Weakness: Code(s): R53.1 - Weakness Status: Chronic Assessment and Plan: suspect this is a manifestation of his uremia however, relative anemia could be playing a role as well follow symptoms now that dialysis has been initiated (3) Hypertension: Qualifiers: Hypertension type: primary hypertension Qualified Code(s): I10 - Essential (primary) hypertension Code(s): I10 - Essential (primary) hypertension Status: Chronic Assessment and Plan: reasonable control at this time will adjust medications as needed BP control may improve further with dialysis (4) Anemia: Qualifiers: Anemia type: iron deficiency Iron deficiency anemia type: unspecified iron deficiency Qualified Code(s): D50.9 - Iron deficiency anemia, unspecified Code(s): D64.9 - Anemia, unspecified Status: Chronic Assessment and Plan: likely related to ESRD and iron deficiency (anemia studies noted) Epogen and venofer with HD follow trend of H/H (5) Diabetes: Code(s): E11.9 - Type 2 diabetes mellitus without complications Status: Acute Assessment and Plan: follow acchecks glycemic control Will continue to follow. Subjective Date/time seen: 07/26/22 13:00 Tolerated dialysis treatment yesterday without any issues or problems; no apparent distress voiced at the time of my visit; no events overnight or earlier this AM; overall, feels reasonably well. Exam Narrative: General: WD/WN male in NAD Heart: normal S1 and S2; no rub Lungs: clear to auscultation Abdomen: soft, nontender, nondistended, positive bowel sounds Extremities: no cyanosis or clubbing; trace edema Skin: no rash or nodules Objective Data Vital Signs Vital Signs: Vital Signs Temp Pulse Resp BP Pulse Ox O2 Del Method 07/26/22 09:37 74 07/26/22 06:00 98.0 F 74 18 122/73 97 07/26/22 03:18 79 14 95 Autopap 12/17/22 21:54 Room Air 07/25/22 21:28 98.0 F 81 18 174/86 H 96 07/25/22 20:21 98.2 F 75 20 140/90 07/25/22 20:17 77 139/91 H 07/25/22 20:00 77 140/89 07/25/22 19:40 77 144/86 H 07/25/22 19:20 71 137/90 07/25/22 19:00 72 143/87 H 07/25/22 18:40 71 145/88 H 07/25/22 18:20 70 141/90 H 07/25/22 18:00 70 145/91 H 07/25/22 17:40 72 155/92 H 07/25/22 17:20 72 144/85 H 07/25/22 16:55 98.3 F 75 16 156/91 H Intake/Output Intake/Output: Intake & Output 07/23/22 07/24/22 07/25/22 07/26/22 23:59 23:59 23:59 23:59 Intake Total 1760 2160 650 1000 Output Total 3400 1800 1200 800 Balance -1640 360 -550 200 Meds/Results Medications: Active Medications Generic Name Dose Route Start Last Admin Trade Name Freq PRN Reason Stop Dose Admin Acetaminophen 650 mg 07/22/22 07:36 07/23/22 22:04 Acetaminophen 325 Mg Tablet PO 650 mg Q4H PRN Administration Mild Pain (1-3) or Fever Calcitriol 0.25 mcg 07/22/22 09:00 07/26/22 09:38 Calcitriol 0.25 Mcg Capsule PO 0.25 mcg DAILY DANA Administration Dextrose 12.5 gm 07/22/22 07:36 Dextrose 50% 25 Gm/50 Ml Syringe IV PUSH PRN PRN Hypoglycemia Protocol Escitalopram Oxalate 20 mg 07/22/22 09:00 07/26/22 09:37 Escitalopram Oxalate 10 Mg Tablet PO 20 mg DAILY DANA Administration Ferrous Sulfate 324 mg 07/23/22 08:00 07/26/22 09:37 Ferrous Sulfate 324 Mg Tablet PO 324 mg DAILY@0800 DANA Administration Glucagon 1 mg 12
--- NOTE | 2022-07-26 13:00 | P.PNNP_ITS ---
Progress Note: A&P Assessment and Plan (1) End stage renal disease: Code(s): N18.6 - End stage renal disease Status: Chronic Assessment and Plan: * due to progression of disease secondary to his diabetic nephropathy * s/p tunneled HD catheter placement (on 07/23/22) * HD tomorrow * follow electrolytes, volume status, and clearance * will need outpatient dialysis arranged prior to discharge (2) Weakness: Code(s): R53.1 - Weakness Status: Chronic Assessment and Plan: * suspect this is a manifestation of his uremia * however, relative anemia could be playing a role as well * follow symptoms now that dialysis has been initiated (3) Hypertension: Qualifiers: Hypertension type: primary hypertension Qualified Code(s): I10 - Essential (primary) hypertension Code(s): I10 - Essential (primary) hypertension Status: Chronic Assessment and Plan: * reasonable control at this time * will adjust medications as needed * BP control may improve further with dialysis (4) Anemia: Qualifiers: Anemia type: iron deficiency Iron deficiency anemia type: unspecified iron deficiency Qualified Code(s): D50.9 - Iron deficiency anemia, unspecified Code(s): D64.9 - Anemia, unspecified Status: Chronic Assessment and Plan: * likely related to ESRD and iron deficiency (anemia studies noted) * Epogen and venofer with HD * follow trend of H/H (5) Diabetes: Code(s): E11.9 - Type 2 diabetes mellitus without complications Status: Acute Assessment and Plan: * follow acchecks * glycemic control Will continue to follow. Subjective Date/time seen: 07/26/22 13:00 Tolerated dialysis treatment yesterday without any issues or problems; no apparent distress voiced at the time of my visit; no events overnight or earlier this AM; overall, feels reasonably well. Exam Narrative: General: WD/WN male in NAD Heart: normal S1 and S2; no rub Lungs: clear to auscultation Abdomen: soft, nontender, nondistended, positive bowel sounds Extremities: no cyanosis or clubbing; trace edema Skin: no rash or nodules Objective Data Vital Signs Vital Signs: Vital Signs Temp Pulse Resp BP Pulse Ox O2 Del Method 07/26/22 09:37 74 07/26/22 06:00 98.0 F 74 18 122/73 97 07/26/22 03:18 79 14 95 Autopap 07/25/22 21:54 Room Air 07/25/22 21:28 98.0 F 81 18 174/86 H 96 07/25/22 20:21 98.2 F 75 20 140/90 07/25/22 20:17 77 139/91 H 07/25/22 20:00 77 140/89 07/25/22 19:40 77 144/86 H 07/25/22 19:20 71 137/90 07/25/22 19:00 72 143/87 H 07/25/22 18:40 71 145/88 H 07/25/22 18:20 70 141/90 H 07/25/22 18:00 70 145/91 H 07/25/22 17:40 72 155/92 H 07/25/22 17:20 72 144/85 H 07/25/22 16:55 98.3 F 75 16 156/91 H Intake/Output Intake/Output: Intake & Output 07/23/22 07/24/22 07/25/22 07/26/22 23:59 23:59 23:59 23:59 Intake Total 1760 2160 650 1000 Output Total 3400 1800 1200 800 Balance -1640 360 -550 200 Meds/Results Medications: Active M
[2022-07-26 14:00] VITALS: BP 133/74; PULSE 78; RESP 18; TEMP 36.6; O2SAT 97
--- NOTE | 2022-07-26 16:11 | PM.IMPN ---
Progress Note: A&P Assessment and Plan (1) Acute kidney injury superimposed on CKD: Code(s): N17.9 - Acute kidney failure, unspecified; N18.9 - Chronic kidney disease, unspecified Status: Acute Assessment and Plan: Patient presented to the emergency department with complaints of generalized weakness and fatigue. He has a history of chronic kidney disease and sees Dr. Lanier at [facility], Nephrology. CKD stage 5 BUN 101, creatinine 9, GFR 6, potassium 4.1, sodium 139, chloride 107, carbon dioxide 17 anion gap 15, glucose 135, magnesium 2.4, calcium 7.5. Prior labs from 04/29-05/29 showed BUN 62-83 and creatinine 3.8-4.6, eGFR 14-18. Nephrology consulted and appreciate recommendations Monitor renal function Phosphorus 10.2, calcium 7.3, on 07/22 increase sevelamer to 1600 mg TID Continue vitamin D3, calcitriol, and tight glucose and BP control-losartan resumed. Continue amlodipine 07/23 dialysis catheter to be placed today by general surgery for emergent dialysis. 07/24 patient underwent hemodialysis on 07/23 with approximately 500 mL removed and tolerated it well. He had repeat dialysis again today with <del>1250</del> <del>mL</del> 700 mL removed. He reports symptoms are improving 07/25 patient to have HD today, -1000 mL Awaiting insurance auth for dialysis Stable. (2) Hypertension: Qualifiers: Hypertension type: primary hypertension Qualified Code(s): I10 - Essential (primary) hypertension Code(s): I10 - Essential (primary) hypertension Status: Chronic Assessment and Plan: Chronic, blood pressures reviewed or the past 24 hours and stable. continue amlodipine, Toprol XL and losartan at home doses (3) Diabetes: Qualifiers: Chronic kidney disease stage: stage 5, not on chronic dialysis Diabetes mellitus complication detail: with chronic kidney disease Diabetes mellitus complication status: with kidney complications Diabetes mellitus parts counterman insulin use: without parts counterman use Diabetes mellitus type: type 2 Qualified Code(s): E11.22 - Type 2 diabetes mellitus with diabetic chronic kidney disease; N18.5 - Chronic kidney disease, stage 5 Code(s): E11.9 - Type 2 diabetes mellitus without complications Status: Chronic Assessment and Plan: Chronic, stable. A1c 6.1% Hold semaglutide while inpatient Continue Accu-Cheks a.c. HS with low-dose insulin sliding scale t.i.d. with meals Stable (4) Anemia: Qualifiers: Anemia type: iron deficiency Iron deficiency anemia type: unspecified iron deficiency Qualified Code(s): D50.9 - Iron deficiency anemia, unspecified Code(s): D64.9 - Anemia, unspecified Status: Chronic Assessment and Plan: Chronic, hemoglobin 9 0.4-9.8. Prior levels in 2020 10-12. Likely multifactorial secondary to iron deficiency and chronic kidney disease Serum iron 36, TIBC 247, saturation 15%, ferritin 104. He reports starting a multivitamin with iron in the past week however renal caps does not appear to contain iron. Started on ferrous sulfate 325 mg p.o. daily this admission B12 769 and folate 18-within normal limits Trend H&H and monitor for acute bleeding Epogen with dialysis and IV venofer x 1 on 07/25 per Nephrology Stable (5) Leukocytosis: Qualifiers: Leukocytosis type: unspecified Qualified Code(s): D72.829 - Elevated white blood cell count, unspecified Code(s): D72.829 - Elevated white blood cell count, unspecified Status: Acute Assessment and Plan: WBC 14.3 without bandemia. patient is afebrile. UA shows slightly cloudy urine without nitrites or leukocytes, WBC 10-15 and trace bacteria, 3+ protein. He has no suprapubic or CVA tenderness on exam. UA is not significantly concerning for acute UTI. Hold antibiotics pending urine culture results. Chest x-ray negative for acute pulmonary disease No open wounds appreciated No complaints of diarrhea, abdominal pain, naus
[2022-07-26 17:37] LABS: Glucose Point of Care 90 mg/dl (65-105)
[2022-07-26 22:00] VITALS: BP 152/81; PULSE 73; RESP 20; TEMP 36.4; O2SAT 98
[2022-07-27] VITALS (16 sets, daily range): BP systolic 113–164; BP diastolic 72–101; PULSE 68–81; RESP 16–20; TEMP 35.7–37; O2SAT 94–98
[2022-07-27 05:42] LABS: Albumin Level 4.1 g/dL (3.5-5.1); Anion Gap 11 mmol/L (8-16); Blood Urea Nitrogen 58 mg/dL (9-20); Calcium 8.3 mg/dL (8.4-10.2); Carbon Dioxide 25 mmol/L (22-30); Chloride 96 mmol/L (98-107); Estimated CRCL calculation 15 ml/min; Estimated Glomerular Filt Rate 9; Glucose 104 mg/dL (65-110); Phosphorus 7.2 mg/dL (2.5-4.5); Potassium 3.7 mmol/L (3.4-5.0); Sodium 132 mmol/L (137-145)
[2022-07-27 08:29] LABS: Glucose Point of Care 96 mg/dl (65-105)
[2022-07-27] MEDS: VITAMIN B CMPLX/VIT C/FOLIC AC 1 CAPSULE 1 CAP PO (08:47)
[2022-07-27] MEDS: METOPROLOL SUCCINATE EXT REL 50 MG TABCR PO (08:47)
[2022-07-27] MEDS: ROSUVASTATIN 10 MG TABLET PO (08:47)
[2022-07-27] MEDS: SEVELAMER CARBONATE 800 MG TABLET 1600 MG PO ×3 (08:48→17:03)
[2022-07-27] MEDS: LOSARTAN POTASSIUM 25 MG TABLET PO (08:48)
[2022-07-27] MEDS: CHOLECALCIFEROL 1,000 UNITS TABLET 1000 UNITS PO (08:48)
[2022-07-27] MEDS: FERROUS SULFATE 324 MG TABLET PO (08:48)
[2022-07-27] MEDS: calcitrioL 0.25 MCG CAPSULE PO (08:48)
[2022-07-27] MEDS: ESCITALOPRAM OXALATE 10 MG TABLET 20 MG PO (08:48)
--- NOTE | 2022-07-27 09:16 | P.PNNP_ITS ---
Progress Note: A&P Assessment and Plan (1) End stage renal disease: Code(s): N18.6 - End stage renal disease Status: Chronic Assessment and Plan: * due to progression of disease secondary to his diabetic nephropathy * s/p tunneled HD catheter placement (on 07/23/22) * HD tomorrow * follow electrolytes, volume status, and clearance * the patient is going to go to [facility] for dialysis. (2) Weakness: Code(s): R53.1 - Weakness Status: Chronic Assessment and Plan: * suspect this is a manifestation of his uremia * however, relative anemia could be playing a role as well * follow symptoms now that dialysis has been initiated (3) Hypertension: Qualifiers: Hypertension type: primary hypertension Qualified Code(s): I10 - Ess ential (primary) hypertension Code(s): I10 - Essential (primary) hypertension Status: Chronic Assessment and Plan: * Blood pressure 1 40-150. * He will have fluid removed today on dialysis. Further adjustments after that (4) Anemia: Qualifiers: Anemia type: iron deficiency Iron deficiency anemia type: unspecified iron deficiency Qualified Code(s): D50.9 - Iron deficiency anemia, unspecified Code(s): D64.9 - Anemia, unspecified Status: Chronic Assessment and Plan: * likely related to ESRD and iron deficiency (anemia studies noted) * Epogen and venofer with HD * no CBC done today. Will check 1 tomorrow if he is still here. (5) Diabetes: Code(s): E11.9 - Type 2 diabetes mellitus without complications Status: Acute Assessment and Plan: * Management per hospitalist's Subjective Date/time seen: 07/27/22 09:16 Interval history: The patient is finishing his lumbar. He is using his CPAP machine. No chest pain or shortness of breath. Swelling is better. Exam Narrative: General: WD/WN male in NAD Heart: normal S1 and S2; no rub or gallop Lungs: clear bilaterally Abdomen: soft, nontender, nondistended, positive bowel sounds Extremities: no cyanosis or clubbing; trace edema Skin: no rash Objective Data Vital Signs Vital Signs: Vital Signs - 24 hr 07/26/22 09:37 07/26/22 14:00 07/26/22 22:00 Temperature 97.8 F 97.5 F L Pulse Rate 74 78 73 Respiratory Rate 18 20 Blood Pressure 133/74 152/81 H Pulse Oximetry 97 98 07/27/22 06:00 07/27/22 08:47 Temperature 96.2 F L Pulse Rate 71 71 Respiratory Rate 20 Blood Pressure 141/72 H Pulse Oximetry 98 Intake/Output Intake/Output: Intake & Output 07/24/22 07/25/22 07/26/22 07/27/22 23:59 23:59 23:59 23:59 Intake Total 2160 650 1690 550 Output Total 1800 1200 800 800 Balance 360 -550 890 -250 Meds/Results Medications: Active Medications Generic Name Dose Route Start Last Admin Trade Name Freq PRN Reason Stop Dose Admin Acetaminophen 650 mg 07/22/22 07:36 07/23/22 22:04 Acetaminophen 325 Mg Tablet PO 650 mg Q4H PRN Administration Mild Pain (1-3) or Fever Calcitriol 0.25 mcg 07/22/22 09:00 07/27/22 08:48 Calcitriol 0.25 Mcg Capsule PO 0.25 mcg
--- NOTE | 2022-07-27 09:16 | PM.PNNEP ---
Progress Note: A&P Assessment and Plan (1) End stage renal disease: Code(s): N18.6 - End stage renal disease Status: Chronic Assessment and Plan: due to progression of disease secondary to his diabetic nephropathy s/p tunneled HD catheter placement (on 07/23/22) HD tomorrow follow electrolytes, volume status, and clearance the patient is going to go to [facility] for dialysis. (2) Weakness: Code(s): R53.1 - Weakness Status: Chronic Assessment and Plan: suspect this is a manifestation of his uremia however, relative anemia could be playing a role as well follow symptoms now that dialysis has been initiated (3) Hypertension: Qualifiers: Hypertension type: primary hypertension Qualified Code(s): I10 - Essential (primary) hypertension Code(s): I10 - Essential (primary) hypertension Status: Chronic Assessment and Plan: Blood pressure 1 40-150. He will have fluid removed today on dialysis. Further adjustments after that (4) Anemia: Qualifiers: Anemia type: iron deficiency Iron deficiency anemia type: unspecified iron deficiency Qualified Code(s): D50.9 - Iron deficiency anemia, unspecified Code(s): D64.9 - Anemia, unspecified Status: Chronic Assessment and Plan: likely related to ESRD and iron deficiency (anemia studies noted) Epogen and venofer with HD no CBC done today. Will check 1 tomorrow if he is still here. (5) Diabetes: Code(s): E11.9 - Type 2 diabetes mellitus without complications Status: Acute Assessment and Plan: Management per hospitalist's Subjective Date/time seen: 07/27/22 09:16 Interval history: The patient is finishing his lumbar. He is using his CPAP machine. No chest pain or shortness of breath. Swelling is better. Exam Narrative: General: WD/WN male in NAD Heart: normal S1 and S2; no rub or gallop Lungs: clear bilaterally Abdomen: soft, nontender, nondistended, positive bowel sounds Extremities: no cyanosis or clubbing; trace edema Skin: no rash Objective Data Vital Signs Vital Signs: Vital Signs - 24 hr 07/26/22 09:37 07/26/22 14:00 07/26/22 22:00 Temperature 97.8 F 97.5 F L Pulse Rate 74 78 73 Respiratory Rate 18 20 Blood Pressure 133/74 152/81 H Pulse Oximetry 97 98 07/27/22 06:00 07/27/22 08:47 Temperature 96.2 F L Pulse Rate 71 71 Respiratory Rate 20 Blood Pressure 141/72 H Pulse Oximetry 98 Intake/Output Intake/Output: Intake & Output 07/24/22 07/25/22 07/26/22 07/27/22 23:59 23:59 23:59 23:59 Intake Total 2160 650 1690 550 Output Total 1800 1200 800 800 Balance 360 -550 890 -250 Meds/Results Medications: Active Medications Generic Name Dose Route Start Last Admin Trade Name Freq PRN Reason Stop Dose Admin Acetaminophen 650 mg 07/22/22 07:36 07/23/22 22:04 Acetaminophen 325 Mg Tablet PO 650 mg Q4H PRN Administration Mild Pain (1-3) or Fever Calcitriol 0.25 mcg 07/22/22 09:00 07/27/22 08:48 Calcitriol 0.25 Mcg Capsule PO 0.25 mcg DAILY DANA Administration Dextrose 12.5 gm 07/22/22 07:36 Dextrose 50% 25 Gm/50 Ml Syringe IV PUSH PRN PRN Hypoglycemia Protocol Epoetin [place]-epbx 4,000 units 07/27/22 21:55 Epoetin [place]-Epbx 4,000 Units/Ml Vial IV PUSH 07/27/22 21:56 ONCE ONE Escitalopram Oxalate 20 mg 07/22/22 09:00 07/27/22 08:48 Escitalopram Oxalate 10 Mg Tablet PO 20 mg DAILY DANA Administration Ferrous Sulfate 324 mg 07/23/22 08:00 07/27/22 08:48 Ferrous Sulfate 324 Mg Tablet PO 324 mg DAILY@0800 DANA Administration Glucagon 1 mg 07/22/22 07:36 Glucagon For Inj 1 Mg Vial IM PRN PRN Hypoglycemia Protocol Glucose 15 gm 07/22/22 07:36 Glucose Oral Gel 15 Gm Of Glucse In 37.5 Gm Tube PO PRN PRN Hypoglycemia Protocol Dextrose 1
[2022-07-27 12:08] LABS: Glucose Point of Care 292 mg/dl (65-105)
[2022-07-27 13:49] LABS: Glucose Point of Care 195 mg/dl (65-105)
[2022-07-27] MEDS: EPOETIN ALFA-EPBX 4,000 UNITS/ML VIAL 4000 UNITS IV PUSH (14:27)
[2022-07-27] MEDS: SODIUM CHLORIDE 0.9% IV 1,000 ML 999 ML IV CONT (14:28)
[2022-07-27] MEDS: IRON SUCROSE COMPLEX 200 MG in SODIUM CHLORIDE 0.9% IV 50 ML 240 MG IVPB (15:17)
--- NOTE | 2022-07-27 16:11 | PM.IMPN ---
Progress Note: A&P Assessment and Plan (1) Acute kidney injury superimposed on CKD: Code(s): N17.9 - Acute kidney failure, unspecified; N18.9 - Chronic kidney disease, unspecified Status: Acute Assessment and Plan: Patient presented to the emergency department with complaints of generalized weakness and fatigue. He has a history of chronic kidney disease and sees Dr. Lanier at [facility], Nephrology. CKD stage 5 BUN 101, creatinine 9, GFR 6, potassium 4.1, sodium 139, chloride 107, carbon dioxide 17 anion gap 15, glucose 135, magnesium 2.4, calcium 7.5. Prior labs from 04/29-05/29 showed BUN 62-83 and creatinine 3.8-4.6, eGFR 14-18. Nephrology consulted and appreciate recommendations Monitor renal function Phosphorus 10.2, calcium 7.3, on 07/22 increase sevelamer to 1600 mg TID Continue vitamin D3, calcitriol, and tight glucose and BP control-losartan resumed. Continue amlodipine 07/23 dialysis catheter to be placed today by general surgery for emergent dialysis. 07/24 patient underwent hemodialysis on 07/23 with approximately 500 mL removed and tolerated it well. He had repeat dialysis again today with <del>1250</del> <del>mL</del> 700 mL removed. He reports symptoms are improving 07/25 patient to have HD today, -1000 mL 07/27 HD today -1500 mL, weight 104 kg to 94 kg (-10 kg) since admission Awaiting insurance auth for dialysis Stable. (2) Hypertension: Qualifiers: Hypertension type: primary hypertension Qualified Code(s): I10 - Essential (primary) hypertension Code(s): I10 - Essential (primary) hypertension Status: Chronic Assessment and Plan: Chronic, blood pressures reviewed or the past 24 hours and stable. BP 113/76 to 148/82 continue amlodipine, Toprol XL and losartan at home doses (3) Diabetes: Qualifiers: Chronic kidney disease stage: stage 5, not on chronic dialysis Diabetes mellitus complication detail: with chronic kidney disease Diabetes mellitus complication status: with kidney complications Diabetes mellitus dedicated intermodal truck driver insulin use: without dedicated intermodal truck driver use Diabetes mellitus type: type 2 Qualified Code(s): E11.22 - Type 2 diabetes mellitus with diabetic chronic kidney disease; N18.5 - Chronic kidney disease, stage 5 Code(s): E11.9 - Type 2 diabetes mellitus without complications Status: Chronic Assessment and Plan: Chronic, stable. A1c 6.1% Hold semaglutide while inpatient Continue Accu-Cheks a.c. HS with low-dose insulin sliding scale t.i.d. with meals Stable (4) Anemia: Qualifiers: Anemia type: iron deficiency Iron deficiency anemia type: unspecified iron deficiency Qualified Code(s): D50.9 - Iron deficiency anemia, unspecified Code(s): D64.9 - Anemia, unspecified Status: Chronic Assessment and Plan: Chronic, hemoglobin 9 0.4-9.8. Prior levels in 2021 05-12. Likely multifactorial secondary to iron deficiency and chronic kidney disease Serum iron 36, TIBC 247, saturation 15%, ferritin 104. He reports starting a multivitamin with iron in the past week however renal caps does not appear to contain iron. Started on ferrous sulfate 325 mg p.o. daily this admission B12 769 and folate 18-within normal limits Trend H&H and monitor for acute bleeding. CBC in am. Epogen with dialysis and IV venofer x 1 on 07/25 per Nephrology Stable (5) Leukocytosis: Qualifiers: Leukocytosis type: unspecified Qualified Code(s): D72.829 - Elevated white blood cell count, unspecified Code(s): D72.829 - Elevated white blood cell count, unspecified Status: Acute Assessment and Plan: WBC 14.3 without bandemia. patient is afebrile. UA shows slightly cloudy urine without nitrites or leukocytes, WBC 10-15 and trace bacteria, 3+ protein. He has no suprapubic or CVA tenderness on exam. UA is not significantly concerning for acute UTI. Hold antibiotics pending urine culture results. Chest x-ray negativ
[2022-07-27 17:10] LABS: Glucose Point of Care 100 mg/dl (65-105)
[2022-07-27] MEDS: ACETAMINOPHEN 325 MG TABLET 650 MG PO (20:30)
[2022-07-28 05:37] LABS: Hematocrit 33.5 % (42.0-52.0); Hemoglobin 10.4 g/dL (14.0-18.0); Mean Corpuscular Volume 83.8 fl (80-100); Mean Platelet Volume 8.6 fl (7.4-10.4); Platelet Count Result 335 k/mm3 (150-375); White Blood Count 15.7 K/mm3 (4.5-10.0)
[2022-07-28 05:38] LABS: Albumin Level 4.2 g/dL (3.5-5.1); Anion Gap 11 mmol/L (8-16); Blood Urea Nitrogen 42 mg/dL (9-20); Calcium 8.3 mg/dL (8.4-10.2); Carbon Dioxide 27 mmol/L (22-30); Chloride 100 mmol/L (98-107); Estimated CRCL calculation 19 ml/min; Estimated Glomerular Filt Rate 12; Glucose 104 mg/dL (65-110); Phosphorus 6.4 mg/dL (2.5-4.5); Sodium 138 mmol/L (137-145)
[2022-07-28 05:54] VITALS: BP 115/73; PULSE 76; RESP 18; TEMP 36.2; O2SAT 97
[2022-07-28 08:45] LABS: Glucose Point of Care 104 mg/dl (65-105)
--- NOTE | 2022-07-28 09:01 | PM.PNNEP ---
Progress Note: A&P Assessment and Plan (1) End stage renal disease: Code(s): N18.6 - End stage renal disease Status: Chronic Assessment and Plan: due to progression of disease secondary to his diabetic nephropathy s/p tunneled HD catheter placement (on 07/23/22) HD wednesday here or at [facility]. (2) Weakness: Code(s): R53.1 - Weakness Status: Chronic Assessment and Plan: suspect this is a manifestation of his uremia however, relative anemia could be playing a role as well follow symptoms now that dialysis has been initiated (3) Hypertension: Qualifiers: Hypertension type: primary hypertension Qualified Code(s): I10 - Essential (primary) hypertension Code(s): I10 - Essential (primary) hypertension Status: Chronic Assessment and Plan: Blood pressure 113 to 143. continue the same meds (4) Anemia: Qualifiers: Anemia type: iron deficiency Iron deficiency anemia type: unspecified iron deficiency Qualified Code(s): D50.9 - Iron deficiency anemia, unspecified Code(s): D64.9 - Anemia, unspecified Status: Chronic Assessment and Plan: likely related to ESRD and iron deficiency (anemia studies noted) Epogen and venofer with HD hb 10.4 (5) Diabetes: Code(s): E11.9 - Type 2 diabetes mellitus without complications Status: Acute Assessment and Plan: Management per hospitalist's Subjective Date/time seen: 07/28/22 09:01 Interval history: pt is comfortable lying in bed. No chest pain or shortness of breath. eager for discharge once insurance approves outpatient dialysis. Exam Narrative: General: WD/WN male in NAD Heart: normal S1 and S2; no rub or gallop Lungs: clear bilaterally Abdomen: soft, nontender, nondistended, positive bowel sounds Extremities: no cyanosis or clubbing; trace edema Skin: no rash or sq nodules Objective Data Vital Signs Vital Signs: Vital Signs - 24 hr 07/27/22 12:54 07/27/22 12:45 07/27/22 13:10 Temperature 98.5 F Pulse Rate 68 68 78 Respiratory Rate 16 Blood Pressure 152/90 H 163/92 H 164/101 H Pulse Oximetry 07/27/22 13:30 07/27/22 13:50 07/27/22 14:10 Temperature Pulse Rate 72 73 77 Respiratory Rate Blood Pressure 132/85 153/86 H 131/79 Pulse Oximetry 07/27/22 14:30 07/27/22 14:50 07/27/22 15:10 Temperature Pulse Rate 74 77 78 Respiratory Rate Blood Pressure 143/87 H 143/89 H 148/89 H Pulse Oximetry 07/27/22 15:30 07/27/22 15:54 07/27/22 16:05 Temperature 98.6 F Pulse Rate 80 81 77 Respiratory Rate 16 Blood Pressure 129/82 113/76 126/78 Pulse Oximetry 07/27/22 17:07 07/27/22 21:59 07/28/22 05:54 Temperature 97.6 F 98.1 F 97.1 F L Pulse Rate 76 77 76 Respiratory Rate 16 16 18 Blood Pressure 142/82 H 143/74 H 115/73 Pulse Oximetry 96 94 97 Intake/Output Intake/Output: Intake & Output 07/25/22 07/26/22 07/27/22 07/28/22 23:59 23:59 23:59 23:59 Intake Total 650 1690 1030 550 Output Total 0395 585 9245 600 Balance -550 890 -1270 -50 Meds/Results Medications: Active Medications Generic Name Dose Route Start Last Admin Trade Name Freq PRN Reason Stop Dose Admin Acetaminophen 650 mg 07/22/22 07:36 07/27/22 20:30 Acetaminophen 325 Mg Tablet PO 650 mg Q4H PRN Administration Mild Pain (1-3) or Fever Calcitriol 0.25 mcg 07/22/22 09:00 07/27/22 08:48 Calcitriol 0.25 Mcg Capsule PO 0.25 mcg DAILY DANA Administration Dextrose 12.5 gm 07/22/22 07:36 Dextrose 50% 25 Gm/50 Ml Syringe IV PUSH PRN PRN Hypoglycemia Protocol Escitalopram Oxalate 20 mg 07/22/22 09:00 07/27/22 08:48 Escitalopram Oxalate 10 Mg Tablet PO 20 mg DAILY DANA Administration Ferrous Sulfate 324 mg 07/23/22 08:00 07/27/22 08:48 Ferrous Sulfate 324 Mg Tablet PO 324 mg DAILY@0800 DANA Administration Glucagon
[2022-07-28 09:22] VITALS: PULSE 76
[2022-07-28] MEDS: CHOLECALCIFEROL 1,000 UNITS TABLET 1000 UNITS PO (09:22)
[2022-07-28] MEDS: calcitrioL 0.25 MCG CAPSULE PO (09:22)
[2022-07-28] MEDS: SEVELAMER CARBONATE 800 MG TABLET 1600 MG PO ×2 (09:22→12:29)
[2022-07-28] MEDS: VITAMIN B CMPLX/VIT C/FOLIC AC 1 CAPSULE 1 CAP PO (09:22)
[2022-07-28] MEDS: FERROUS SULFATE 324 MG TABLET PO (09:22)
[2022-07-28] MEDS: METOPROLOL SUCCINATE EXT REL 50 MG TABCR PO (09:22)
[2022-07-28] MEDS: LOSARTAN POTASSIUM 25 MG TABLET PO (09:22)
[2022-07-28] MEDS: ROSUVASTATIN 10 MG TABLET PO (09:22)
[2022-07-28] MEDS: ESCITALOPRAM OXALATE 10 MG TABLET 20 MG PO (09:22)
--- NOTE | 2022-07-28 11:40 | PCNWS ---
Weekly nutritional screen. Patient is tolerating current diet with adequate intake. No weight loss reported. No nutritional needs at this time.
--- NOTE | 2022-07-28 12:25 | PM.DS ---
DS: Admitting Diagnosis Discharge Date 07/28/2022 1225 Admitting Diagnosis Acute kidney injury superimposed on CKD Essential Hypertension Diabetes?mellitus type 2 Anemia DS: Discharge Diagnosis Discharge Diagnosis (1) Acute kidney injury superimposed on CKD: Code(s): N17.9 - Acute kidney failure, unspecified; N18.9 - Chronic kidney disease, unspecified Status: Acute Assessment and Plan: Patient presented to the emergency department with complaints of generalized weakness and fatigue. He has a history of chronic kidney disease and sees Dr. Lanier at [facility], Nephrology. CKD stage 5 on admission: BUN 101, creatinine 9, GFR 6, potassium 4.1, sodium 139, chloride 107, carbon dioxide 17 anion gap 15, glucose 135, magnesium 2.4, calcium 7.5. Prior labs from 04/29-05/29 showed BUN 62-83 and creatinine 3.8-4.6, eGFR 14-18. Nephrology consulted and appreciate recommendations Phosphorus 10.2, calcium 7.3, on 07/22 increase sevelamer to 1600 mg TID Continued vitamin D3, calcitriol, and tight glucose and BP control-losartan resumed. Amlodipine stopped. 07/23 dialysis catheter to be placed today by general surgery for emergent dialysis. 07/24 patient underwent hemodialysis on 07/23 with approximately 500 mL removed and tolerated it well. He had repeat dialysis again today with <del>1250</del> <del>mL</del> 700 mL removed. He reports symptoms improving 07/25 patient to have HD today, -1000 mL 07/27 HD today -1500 mL, weight 104 kg to 94 kg (-10 kg) since admission Waited for insurance authorization for dialysis - received 07/28 and patient to begin HD MWF at [facility] Stable. (2) Hypertension: Qualifiers: Hypertension type: primary hypertension Qualified Code(s): I10 - Essential (primary) hypertension Code(s): I10 - Essential (primary) hypertension Status: Chronic Assessment and Plan: Chronic, blood pressures reviewed or the past 24 hours and stable. BP 113/76 to 148/82 Continued Toprol XL and losartan at home doses (3) Diabetes: Qualifiers: Chronic kidney disease stage: stage 5, not on chronic dialysis Diabetes mellitus complication detail: with chronic kidney disease Diabetes mellitus complication status: with kidney complications Diabetes mellitus termite exterminator insulin use: without termite exterminator use Diabetes mellitus type: type 2 Qualified Code(s): E11.22 - Type 2 diabetes mellitus with diabetic chronic kidney disease; N18.5 - Chronic kidney disease, stage 5 Code(s): E11.9 - Type 2 diabetes mellitus without complications Status: Chronic Assessment and Plan: Chronic, stable. A1c 6.1% Held semaglutide while inpatient. Resumed at dsicharge. Continue Accu-Cheks a.c. HS with low-dose insulin sliding scale t.i.d. with meals Stable (4) Anemia: Qualifiers: Anemia type: iron deficiency Iron deficiency anemia type: unspecified iron deficiency Qualified Code(s): D50.9 - Iron deficiency anemia, unspecified Code(s): D64.9 - Anemia, unspecified Status: Chronic Assessment and Plan: Chronic, hemoglobin 9 0.4-9.8. Prior levels in 2020 10-12. Likely multifactorial secondary to iron deficiency and chronic kidney disease Serum iron 36, TIBC 247, saturation 15%, ferritin 104. He reports starting a multivitamin with iron in the past week however renal caps does not appear to contain iron. Started on ferrous sulfate 325 mg p.o. daily this admission B12 769 and folate 18-within normal limits Epogen with dialysis and IV venofer x 1 on 07/25 per Nephrology H/H monitored. Hgb 10 on discharge. (5) Leukocytosis: Qualifiers: Leukocytosis type: unspecified Qualified Code(s): D72.829 - Elevated white blood cell count, unspecified Code(s): D72.829 - Elevated white blood cell count, unspecified Status: Acute Assessment and Plan: WBC 14.3 without bandemia. patient is afebrile. UA shows slightly cloudy urine with
[2022-07-28 12:27] LABS: Glucose Point of Care 135 mg/dl (65-105)
== END 2022-07-28 13:13 | disposition home or self-care (01) | DRG 674 ==
LOC: ANHED 20:56 → ANH2MED 07-22 05:53
PROVIDERS: Emergency Medicine; Internal Medicine Nephrology; Surgery; Admitting Provider Internal Medicine; Emergency Provider Emergency Medicine; Visit Provider Nurse Practitioner Family
PROC: 0JH63XZ Insertion of Tunneled Vascular Access Device into Chest Subcutaneous Tissue and Fascia, Percutaneous Approach (ICD-10-PCS; CPT 36908; principal; 2022-07-23 14:30)
DX: N17.9 Acute kidney failure, unspecified (principal); I12.0 Hypertensive chronic kidney disease with stage 5 chronic kidney disease or end stage renal disease; N18.6 End stage renal disease; D63.1 Anemia in chronic kidney disease; D50.9 Iron deficiency anemia, unspecified; D72.829 Elevated white blood cell count, unspecified; E66.9 Obesity, unspecified; E78.5 Hyperlipidemia, unspecified; E11.22 Type 2 diabetes mellitus with diabetic chronic kidney disease; F32.A Depression, unspecified; G47.33 Obstructive sleep apnea (adult) (pediatric); Z99.89 Dependence on other enabling machines and devices; Z79.85 Long-term (current) use of injectable non-insulin antidiabetic drugs; Z20.822 Contact with and (suspected) exposure to COVID-19; Z99.2 Dependence on renal dialysis; Z79.4 Long term (current) use of insulin; Z23 Encounter for immunization; Z68.32 Body mass index [BMI] 32.0-32.9, adult
CPT/HCPCS: 36415; 71045; 77001; 80053; 80069; 80074; 81001; 82607; 82728; 82746; 82948; 83036; 83540; 83550; 83735; 84443; 85025; 85027; 86704; 86706; 87086; 87340; 87636; 90471; 90686; 93005; 99285; A9270; C1750; G0008; G0257; J1644; J1756; J2370; J2704; J3010; J7030; J7040; Q5105

== ENCOUNTER 2023-10-05 13:17 | Outpatient (CLI) | payer BC, SELFPAY ==
--- NOTE | ~2023-10-05 | XR_ITS ---
EXAMINATION: XR abdomen/kub 1V INDICATION: Abdominal distention TECHNIQUE: Supine views of the abdomen were obtained on 2 radiographs. COMPARISON: None FINDINGS: A peritoneal dialysis catheter coils in the left lower quadrant and appears to be normal. T he bowel gas pattern is normal. No dilated loops of bowel are evident. The visualized lung bases are clear. IMPRESSION: 1. Normal-appearing peritoneal dialysis catheter in the left lower quadrant. Reviewed, dictated and finalized at location L. NICAL MAINTENANCE TECHNICIAN
== END 2023-10-05 13:18 | disposition home or self-care (01) ==
PROVIDERS: PCP Internal Medicine Nephrology; Visit Provider Internal Medicine Nephrology
DX: R14.0 Abdominal distension (gaseous) (principal)
CPT/HCPCS: 74018

== ENCOUNTER 2024-10-11 04:34 | Inpatient (IN) | payer MEDICARE, SELFPAY ==
[2024-10-11] VITALS (16 sets, daily range): BP systolic 156–193; BP diastolic 97–112; PULSE 102–114; RESP 18–35; TEMP 36.1–37; O2SAT 95–99; BMI 29.8
--- NOTE | ~2024-10-11 | XR_ITS ---
EXAMINATION: XR fl guide central line place DATE: 10/13/2024 15:19 INDICATION: Tunneled dialysis catheter placement TECHNIQUE: Single fluoroscopic image of the central chest was obtained during procedure performed by Dr. Mishra. Radiologist was not present for the imaging or procedure. The amount of fluoroscopy time us ed during this procedure was 2.7 minutes. Total DAP was 9.9 Gycm^2 COMPARISON: None. FINDINGS: Tip of a hemostat likely for marking project over the distal tip of a left internal jugular central venous catheter which fell projects over the superior cavoatrial junction. IMPRESSION: 1. Fluoroscopy utilized during left internal jugular central venous catheter placement. Reviewed, dictated and finalized at location B. RITY DISPATCHER IMPRESSION: 1. Fluoroscopy utilized during left internal jugular central venous catheter pl acement.
--- NOTE | ~2024-10-11 | US_ITS ---
EXAMINATION: US scrotum doppler DATE: 10/13/2024 12:13 INDICATION: Scrotal edema. TECHNIQUE: Grayscale and Doppler ultrasound images of the testes were obtained. COMPARISON: CT 10/13/2024 FINDINGS: The right testis measures 3.0 x 1.6 x 2.6 cm. The left testis measures 2.8 x 1.8 x 3.2 cm. There is normal vascular flow to both testes. The right epididymis demonstrates a 5 mm cyst. The left epididymis demonstrates a 6 mm cyst. There is no varicocele or hydrocele. Scrotal skin thickening is noted. IMPRESSION: 1. Scrotal skin thickening. No abscess. Reviewed, dictated and finalized at location A. RVISOR BRAKE REPAIR
--- NOTE | ~2024-10-11 | CT_ITS ---
EXAMINATION: CT pelvis wo con DATE: 10/13/2024 12:00 INDICATION: Scrotal edema. TECHNIQUE: Computed tomography (CT) of the pelvis was performed without intravenous contrast. Automat ed exposure control and iterative reconstruction technique were employed. The dose-length product was 579.47 mGy-cm. COMPARISON: CT abdomen and pelvis 10/11/2024, ultrasound 10/13/24 FINDINGS: There is diverticulosis of the colon without evidence of diverticulitis. There are no dila dora loops of bowel. There is a large volume of ascites. A peritoneal dialysis catheter is noted. Ther e is skin thickening in the scrotum. There are widespread arterial calcifications. There is mild lumb ar spondylosis. There is moderate osteoarthritis of the hips. IMPRESSION: 1. No abscess. Reviewed, dictated and finalized at location A. ND WOOD SUPERVISOR IMPRESSION: 1. No abscess.
--- NOTE | ~2024-10-11 | CT_ITS ---
EXAMINATION: CT abdomen pelvis wo con DATE: 10/11/2024 07:50 INDICATION: Abdominal pain. TECHNIQUE: Computed tomography (CT) of the abdomen and pelvis was performed without intravenous contr ast. Automated exposure control and iterative reconstruction technique were employed. The dose-length product was 1160.72 mGy-cm. COMPARISON: None. FINDINGS: The visualized portions of the lung bases demonstrate mild atelectasis. There is a small le ft pleural effusion. The heart size is normal. There are coronary artery calcifications. There are ca lcifications of the aortic valve. No pericardial effusion. The liver and spleen are normal. There are gallstones in the gallbladder, which is normal in size. The pancreas and adrenal glands are normal. There is mild atrophy of the kidneys. There is diverticulosis of the colon without evidence of divert iculitis. There are no dilated loops of bowel. The appendix is not visualized. There is a large volum e of ascites. A peritoneal dialysis catheter is noted. There is edema of the intra-abdominal fat and body wall fat. There is a right inguinal hernia containing fat. There is mild bilateral external kelley c lymphadenopathy and mild left obturator lymphadenopathy. For example, a left obturator node measure s 12 x 22 mm. There are widespread arterial calcifications. There is mild thoracic and lumbar spondyl osis. IMPRESSION: 1. Small pleural effusion. 2. Mild pelvic lymphadenopathy which may be reactive. 3. Large volume of ascites with peritoneal dialysis catheter noted. 4. Right inguinal hernia containing fat. Reviewed, dictated and finalized at location [] RUMENT MECHANIC
--- NOTE | ~2024-10-11 | XR_ITS ---
EXAM: XR abdomen/kub 1V DATE: 10/15/2024 18:39 HISTORY: PD catheter dysfunction . COMPARISON: 10/05/2023 CT abdomen pelvis 10/11/2024; CT pelvis 10/13/2024. FINDINGS: Peritoneal dialysis catheter, coil projecting over the right SI joint. Paucity of small carole wel gas. Normal large bowel gas pattern. Minimal streaky bibasilar atelectasis. Fluid density project ing over the paracolic gutters. Enlarged liver. IMPRESSION: Peritoneal dialysis catheter, coil projecting over the right pelvis. Paucity of small bow el gas. Hepatomegaly. Ascites. Reviewed, dictated and finalized at location K. IMPRESSION: Peritoneal dialysis catheter, coil projecting over the right pelvis . Paucity of small bowel gas. Hepatomegaly. Ascites.
--- NOTE | ~2024-10-11 | US_ITS ---
EXAMINATION: US pelvic limited DATE: 10/13/2024 12:13 INDICATION: Pelvic edema. TECHNIQUE: Multiple grayscale and Doppler ultrasound images of the pelvis were obtained. COMPARISON: CT pelvis 10/13/24 FINDINGS: There are no pathologically enlarged lymph nodes. There is skin thickening in the left ingu inal region. IMPRESSION: 1. Skin thickening in the left inguinal region, consistent with inflammation. No drainable abscess. Reviewed, dictated and finalized at location A. ONAL PARK TOUR GUIDE IMPRESSION: 1. Skin thickening in the left inguinal region, consistent with inflammation. N o drainable abscess.
--- NOTE | ~2024-10-11 | XR_ITS ---
EXAMINATION: XR chest port-a-cath/central DATE: 10/13/2024 15:42 INDICATION: Tunneled dialysis catheter placement TECHNIQUE: frontal view of the chest was obtained. COMPARISON: Chest radiograph dated 07/23/2022 FINDINGS: Interval placement of a new large-bore dual-lumen likely tunneled left internal jugular central venou s catheter with distal tip at the superior cavoatrial junction. Chronic elevation of the right hemidi aphragm. No focal airspace opacities, pulmonary edema, pleural effusion or pneumothorax. Heart size w ithin normal limits for AP technique. Prominent region of amorphous calcific density projecting over the proximal right humerus. The superimposed proximal right humerus appears normal. IMPRESSION: 1. Left internal jugular likely tunneled central venous catheter with distal tip at the superior cavo atrial junction. No acute cardiopulmonary disease. 2. Prominent region of amorphous calcific density projecting over the proximal right humerus which co uld represent material external to the patient or tumoral calcinosis, heterotopic ossification or oth er dystrophic soft tissue calcification for which there would be a wide differential. Correlate with physical exam and clinical history. Reviewed, dictated and finalized at location B. MENDER IMPRESSION: 1. Left internal jugular likely tunneled central venous catheter with distal ti p at the superior cavoatrial junction. No acute cardiopulmonary disease. 2. Prominent region of amorphous calcific density projecting over the proximal right humerus which could represent material external to the patient or tumoral calcinosis, heterotopic ossification or other dystrophic soft tissue calcifica tion for which there would be a wide differential. Correlate with physical exam and clinical history.
--- OUTSIDE RECORDS SUMMARY | 2024-10-11 04:36 | XMS_ITS | Encounter Summary ---
Author Organization [facility] Address [address] [place] [address] Care Team Providers Care Striker Out Name Role Phone Joel Hernandez MD Primary Care Provider [phone] Encounter Details Date Type Department Care Team (Late st Contact Info) Description 06/23/2007 Outpatient Historical [facility] [place] [address] [place] [phone] Zen Díaz MD [address] 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
--- OUTSIDE RECORDS SUMMARY | 2024-10-11 04:36 | XMS_ITS | Encounter Summary ---
Author Organization [facility] Address [address] [place] [address] Care Team Providers Care Depot Manager Name Role Phone Joel Hernandez MD Primary Care Provider [phone] Encounter Details Date Type Department Care Team (Late st Contact Info) Description 08/11/2006 Outpatient Historical [facility] - [place] [address] [place] [phone] Zen Díaz MD [address] 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
--- OUTSIDE RECORDS SUMMARY | 2024-10-11 04:36 | XMS_ITS | Encounter Summary ---
Author Organization [facility] Address [address] [place] [address] Care Team Providers Care Ball Fringe Machine Operator Name Role Phone Joel Hernandez MD Primary Care Provider [phone] Encounter Details Date Type Department Care Team (Late st Contact Info) Description 08/25/[address] [facility] [place] [address] [place] [phone] Zen Díaz MD [address] [place], [place] [id number] Social History Tobacco Use Types Packs/Day Years Used Date Smoking Tobacco: Never Assessed Sex and Gender Information Value Date Recorded Sex Assigned at Not on file Legal Sex Male 3:31 AM EVENT MGR Gender Identity Not on file Sexual Orientation Not on file documented as of this encounter Plan of Treatment Not on file documented as of this encounter Visit Diagnoses Not on filedocumented in this encounter Care Teams Ball Fringe Machine Operator Relationship Specialty Start Date End Date Joel Hernandez MD PCP - General Family Practice 06/06/21 documented as of this encounter
--- OUTSIDE RECORDS SUMMARY | 2024-10-11 04:36 | XMS_ITS | Encounter Summary ---
Author Organization [facility] Address [address] [place] [address] Care Team Providers Care Face Burler Name Role Phone Joel Hernandez MD Primary Care Provider [phone] Encounter Details Date Type Department Care Team (Late st Contact Info) Description 02/04/2007 Outpatient Historical [facility] [place] [address] [place] [phone] Zen Díaz MD [address] [facility]. 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
--- OUTSIDE RECORDS SUMMARY | 2024-10-11 04:36 | XMS_ITS | Encounter Summary ---
Author Organization [facility] Address [address] [place] [address] Care Team Providers Care Warp Worker Name Role Phone Joel Hernandez MD Primary Care Provider [phone] Encounter Details Date Type Department Care Team (Late st Contact Info) Description 11/01/2006 Outpatient Historical [facility] Medicine - [place] [address] [place] [phone] Zen Díaz MD [address] [facility] 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
--- OUTSIDE RECORDS SUMMARY | 2024-10-11 04:38 | XMS_ITS | Clinical Summary ---
Author Organization [facility] Address [address] [place] [address] Care Team Providers Care Customer Leader Name Role Phone Keli Daley RN Unavailable [phone] Mya Gross MD Primary Care Provider [phone] Source Comments [facility],non-owned Affiliates and Associated Physician Practices is amultiple site organization consisting of ambulatory clinics and hospital sitesin [place], [place], [place] and [place]. This disclosure is being madepursuant to the Care Everywhere program and may not contain all information available regarding this patient. Last updated 18.[facility] Allergies No known active allergies Medications * Be aware that medications may not be up to date on this document. Alwaysverify current medications with the patient. Medication Sig Dispensed Refills Start Date End Date Status omeprazole (PRILOSEC) 20 MG capsule Take 20 mg by mouth once daily. Active acetaminophen (TYLENOL) 325 MG tablet Take 2 Tabs by mouth every 6 hours as needed. Maximum allowable Acetaminophen amount = 4 Grams (4000 mg) / 24 hours. 10/10/2014 Active glipiZIDE CR 24hr (GLUCOTROL XL) 5 MG tablet Take 1 Tab by mouth daily before breakfast. 30 Tab 3 10/10/2014 Active Additional Information Patient not taking.Reported on 03/19/2023 blood glucose monitoring kit 1 Kit 0 10/10/2014 Active lancets 100 Each 1 10/10/2014 Active blood glucose test strip 100 Strip 1 10/10/2014 Active escitalopram (Lexapro) 20 MG tablet Take 1 (one) tablet by mouth once daily Active amLODIPine (Norvasc) 10 MG tablet Take 1 (one) tablet by mouth once daily 30 tablet 07/09/2022 Active Additional Information Patient not taking.Reported on 03/19/2023 Active Problems Problem Noted Date Diagnosed Date Acid reflux disease 06/03/2023 Depression 06/03/2023 Overview (06/03/2023): PCP ESRD on peritoneal dialysis 06/03/2023 Generalized anxiety disorder 06/03/2023 Hypercholesteremia 06/03/2023 DYAN on CPAP 06/03/2023 Primary gout 06/03/2023 Diabetes mellitus 08/09/2014 Overview (06/03/2023): dx in 2014. oral meds at dx. Never on insulin. No shotweld operator. Hypertension 08/09/2014 Resolved Problems Problem Noted Date Diagnosed Date Resolved Date Viral gastroenteritis 10/09/20142014 Immunizations Name Administration Dates Next Due INFLUENZA VACCINE, TRIV. (FL UZONE; FLULAVAL; FLUARIX; AFLURIA TRIVALENT; 6MO+), 0.5 ML (IIV3) 10/09/2014 PNEUMOCOCCAL PPSV23 10/09/2014 Family History Medical History Relation Name Comments Diabetes Mother Relation Name Status Comments Mother Alive Social History Tobacco Use Types Packs/Day Years Used Date Smoking Tobacco: Never Alcohol Use Standard Drinks/Week Comments Yes 0 (1 standard drink = 0.6 oz pur e alcohol) socially Sex and Gender Information Value Date Recorded Sex Assigned at Not on file Gender Identity Not on file Sexual Orientation Not on file Last Filed Vital Signs Vital Sign Reading Time Taken Comments Blood Pressure 135/77 03/19/2023 1:14 PM CDT Pulse 66 03/19/2023 1:14 PM CDT Temperature 36.3 C (97.4 F) 03/19/2023 11:22 AM CDT Respiratory Rate 18 03/19/2023 1:14 PM CDT Oxygen Saturation 94% 03/19/2023 1:14 PM CDT Inhaled Oxygen Concentration - - Weight 102.1 kg (225 lb) 03/19/2023 11:22 AM CDT Height 175.3 cm (5' 9 ) 03/19/2023 11:22 AM CDT Body Mass Index 33.23 03/19/2023 11:22 AM CDT Plan of Treatment Health Maintenance Due Date Last Done Comments MEDICARE AWV 12 MONTHS 1979 DTAP/TDAP/TD VACCINES (1 - Tdap) 11/01/1998 HEPATITIS B VACCINE (1 of 3 - Risk Dialysis 4-dose series) 1999 PNEUMOCOCCAL VACCINE (2 of 2 - PCV) 10/10/2015 10/09/2014 DIABETES-STATIN 2019 DIABETES RETINOPATHY SCREENING 06/03/2023 DIABETES-FOOT EXAM WITH MONOFILAMENT 06/03/2023 DIABETES-HGB A1C 06/03/2023 07/09/2022, 10/09/2014 DIABETES-SERUM CREATININE 03/19/20242022, 07/09/2022, 10/10/2014, Additional history exists COVID-19 VACCINE (3 - season) 2024 08/16/2021, 11/18/2020 INFLUENZA VACCINE (#1) 2024 , 05/26/2021, 10/09/2014 DEPRESSION SCREENING 08/09/2024 DIABETES - URINE PROTEIN SCREENING 08/09/2024 ZOSTER VACCINE (1 of 2) 11/01/2029 HEPATITIS C SCREENING Completed 07/09/2022 HIV SCREENING Completed 07/09/2022 HIB VACCINE Aged Out No longer eligi ble based on patient's age to complete this topic HPV VACCINE Aged Out No longer eligi ble based on patient's age to complete this topic MENINGOCOCCAL (Group B) VACCINE Aged Out No longer eligible based on patient's age to complete this topic MENINGOCOCCAL VACCINE Aged Out No jace reddy eligible based on patient's age to complete this topic Goals Goal Patient Goal Type Associated Problems Recent Progress Patient-Stated? Author Medication Management General No Leigh Zelaya, RN Note: Expected end date: ongoing Interventions: Take all medications as prescribed Let your doctor know right away about any changes in your medications Make sure to request a refill of your medication at least one week prior to your last dose Procedures Procedure Name Priority Date/Time Associated Diagnosis Comments COMPREHENSIVE METABOLIC PANEL STAT 03/19/2023 1:05 PM CDT HEPATITIS C ANTIBODY Routine 07/09/2022 11:06 AM WAFER FABRICATION TECHNICIAN Proteinuria, unspecified type Type 2 diabetes mellitus with hyperosmolarity without coma, without long-term current use of insulin (HCC) HEMOGLOBIN A1C Routine 07/09/2022 11:06 AM WAFER FABRICATION TECHNICIAN Proteinuria, unspecified type Type 2 diabetes mellitus with hyperosmolarity without coma, without long-term current use of insulin (HCC) HIV-1 HIV-2 ANTIBODY + HIV P24 AG PANEL Routine 07/09/2022 11:06 AM WAFER FABRICATION TECHNICIAN Type 2 diabetes mellitus with hyperosmolarity without coma, without long-term current use of insulin (HCC) Proteinuria, unspecified type from Last 3 Months or Most Recently Relevant to Health Maintenance Results * (ABNORMAL) COMPREHENSIVE METABOLIC PANEL (03/19/2023 1:05 PM CDT) BUN 55(H) 7 - 26 mg/dL 03/19/2023 1:44 PM [facility] Creatinine 7.58(H) 0.71 - 1.16 mg/dL 03/19/2023 1:44 PM [facility] Sodium 138 136 - 145 mmol/L 03/19/2023 1:44 PM [facility] Potassium 4.0 3.5 - 4.5 mmol/L 03/19/2023 1:44 PM [facility] Chloride 103 98 - 107 mmol/L 03/19/2023 1:44 PM [facility] CO2 22 22 - 29 mmol/L 03/19/2023 1:44 PM [facility] Glucose 244(H) 70 - 115 mg/dL 03/19/2023 1:44 PM [facility] Calcium 8.8 8.4 - 10.2 mg/dL 03/19/2023 1:44 PM [facility] Protein Total 8.1 6.0 - 8.3 g/dL 03/19/2023 1:44 PM [facility] Albumin 3.0(L) 3.4 - 5.0 g/dL 03/19/2023 1:44 PM [facility] Bilirubin Total 0.4 0.2 - 1.2 mg/dL 03/19/2023 1:44 PM [facility] Alkaline Phosphatase 86 40 - 150 U/L 03/19/2023 1:44 PM [facility] ALT 11 5 - 55 U/L 03/19/2023 1:44 PM [facility] AST 9 5 - 34 U/L 03/19/2023 1:44 PM [facility] Anion Gap 17 8 - 18 03/19/2023 1:44 PM [facility] BUN/Creatinine Ratio 7 7 - 23 03/19/2023 1:44 PM [facility] Osmolality Calculated 309(H) 270 - 300 mOsm/kg 03/19/2023 1:44 PM [facility] Albumin/Globulin Ratio 0.6(L) 1.1 - 2.3 03/19/2023 1:44 PM [facility] eGFR by CKD-EPI 8(L) >=90 mL/min/1.7 3 m2 03/19/2023 1:44 PM [facility] Blood BLOOD SPECIMEN / Unknown Venipuncture / Unknown 03/19/2023 1:05 PM CDT 03/19/2023 1:14 PM CDT Lisa Yu DROP WIRE BUILDER-ADVERTISING OPERATIONS COORDINATOR LAB - CHEMIS TRY ORDERABLES Performing Organization Address City/State/[facility] Co de Phone Number [facility] [address] [place] [phone], [facility] [[email or web address]] [phone] * HIV-1 HIV-2 ANTIBODY + HIV P24 AG PANEL (07/09/2022 11:06 AM WAFER FABRICATION TECHNICIAN) HIV Antigen/Antibod y 1 & 2 Non-reacti ve Non-react amaury 07/09/2022 12:51 PM WAFER FABRICATION TECHNICIAN [facility] Comment:No Laboratory eviden ce of HIV infection. Blood BLOOD SPECIMEN / Unknown Lab Venipuncture / Unknown 07/09/2022 11:06 AM WAFER FABRICATION TECHNICIAN 07/09/2022 11:59 AM WAFER FABRICATION TECHNICIAN Chela Lanier MD LAB - CHEMISTRY MICHAELA [facility] Performing Organization Address City/[facility]/ZIP Co de Phone Number [address] [address], [facility] [[email or web address]] [phone] * (ABNORMAL) HEMOGLOBIN A1C (07/09/2022 11:06 AM WAFER FABRICATION TECHNICIAN) Hemoglobin A1c 6.6(H) <=5.6 % 07/09/2022 2:34 PM [facility] Estimated Average Glucose 143 mg/dL 07/09/2022 2:34 PM [facility] Comment: HbA1c Interpretation: Normal : < 5.7% Pre-diabetes: 5.7-6.4% Diabetes: Equal to or greater than 6.5% Test results diagnostic of diabetes should be repeated for confirmation. Treatment target values recommended by ADA and other clinical organizations should be used to evaluate metabolic control in patients. Reference: Citizen [place] Diabetes Association, Standards of Care in Diabetes -2020 In patients 70 years and older consider HbA1c target range of 7.0-7.5% (Reference: Juancho Wilkerson et al. JAMDA. 2012) The Sebia assay for the measurement of HbA1c is a National Glycohemoglobin Standardization Program (NGSP) certified method. Blood BLOOD SPECIMEN / Unknown Lab Venipuncture / Unknown 07/09/2022 11:06 AM WAFER FABRICATION TECHNICIAN 07/09/2022 12:04 PM WAFER FABRICATION TECHNICIAN Chela Lanier MD LAB - CHEMISTRY [facility]HAELA [facility] Performing Organization Address City/[facility]/ZIP Co de Phone Number [address] [address], [facility] [[email or web address]] [phone] * HEPATITIS C ANTIBODY (07/09/2022 11:06 AM WAFER FABRICATION TECHNICIAN) Hepatitis C Antibody Non-react amaury Non-reac tive 07/09/2022 12:51 PM [facility] Comment:Hepatitis C Antibody screen indicates no serologic evidence of past or current infection with Hepatitis C Virus. Patients with unexplained liver disease who are immunocompromised or suspected of having acute Hepatitis C infection may benefit from Nucleic Acid Test (NICO) for Hepatitis C Viral RNA to confirm Hepatitis C status. Blood BLOOD SPECIMEN / Unknown Lab Venipuncture / Unknown 07/09/2022 11:06 AM WAFER FABRICATION TECHNICIAN 07/09/2022 11:59 AM WAFER FABRICATION TECHNICIAN Chela Lanier MD LAB - CHEMISTRY MICHAELA HOL[facility] [address] [place] [address], [facility] [[email or web address]] [phone] from Last 3 Months or Most Recently Relevant to Health Maintenance Advance Directives * Full Code (Latest Code Status on File) Date Activated Date Inactivated Comments 10/08/2014 8:15 PM 10/10/2014 4:46 PM Care Teams Customer Leader Relationship Specialty Start Date End Date Mya Gross MD [address] [facility] [address] [place] [address] PCP - General 01/21/22 Keli Daley, RN Fiber Glass Worker 10/09/14
--- OUTSIDE RECORDS SUMMARY | 2024-10-11 04:38 | XMS_ITS | Clinical Summary ---
Author Organization [facility] Address [address] [place] [address] Phone Care Team Providers Care Bone Char Kiln Tender Name Role Phone Provider, None Primary Care Provider Unavailabl e Allergies No known active allergies Medications lisinopril (PRINIVIL, ZESTRIL) 10 MG Tablet Take 1 Tab by mouth daily. 90 Tab 8 Active metFORMIN (GLUCOPHAGE) 1000 MG Tablet Take 1 Tab by mouth 2 times daily (with meals). 180 Tab 8 Active miconazole (CHANO; MICATIN) 2 % Cream Application Site:between the toes (Description and Location) 30 g 8 Active escitalopram (LEXAPRO) 20 MG Tablet Take 20 mg by mouth daily. Active Active Problems Problem Noted Date Diagnosed Date Major depressive disorder, recurrent, mild 06/23 Generalized anxiety disorder 06/23/2021 Tinea pedis of both feet 05/13/2018 Obesity (BMI 35.0-39.9 without comorbidity) 12/2017 Cellulitis of left foot 05/10/2018 Type 2 diabetes mellitus with hyperglycemia 09/2017 Hypertension 05/10/2018 Chronic kidney disease, stage 3 05/10/2018 Family History Medical History Relation Name Comments Diabetes Maternal Grandmother Hypertension Maternal Grandmother Depression Mother Nikki Diabetes Mother Nikki Hypertension Mother Nikki No Known Problems Sister Azalia (35) Relation Name Status Comments Brother Tad (36) Alive Father Unknown Alive Maternal Grandmother Mother Nikki Alive Sister Azalia (35) Alive Social History Tobacco Use Types Packs/Day Years Used Date Smoking Tobacco: Never Smokeless Tobacco: Never Alcohol Use Standard Drinks/Week Comments Not Currently 0 (1 standard drink = 0.6 oz pure alcohol) Personal Choice due to Diabetes Sexually Active Control Partners Comments Yes Female Sex and Gender Information Value Date Recorded Sex Assigned at Not on file Legal Sex Male 12:42 AM CDT Gender Identity Not on file Sexual Orientation Not on file Last Filed Vital Signs Vital Sign Reading Time Taken Comments Blood Pressure 161/73 05/13/2018 7:52 AM CDT Pulse 85 05/13/2018 7:48 AM CDT Temperature 36.1 C (97 F) 05/13/2018 7:52 AM CDT Respiratory Rate 18 05/13/2018 7:52 AM CDT Oxygen Saturation 95% 05/13/2018 7:52 AM CDT Inhaled Oxygen Concentration - - Weight 113.4 kg (250 lb) 05/10/2018 7:17 PM CDT Height 175.3 cm (5' 9 ) 05/10/2018 7:17 PM CDT Body Mass Index 36.92 05/10/2018 7:17 PM CDT Plan of Treatment Health Maintenance Due Date Last Done Comments Diabetes: Eye Exam 1979 Diabetes: Foot Exam 1979 Hepatitis C Virus (HCV) Screening 1980 TdaP Immunization 1979 Hepatitis B Immunization (1 of 3 - 19+ 3-dose series) 11/01/1998 Pneumococcal Immunization Combined (2 of 2 - PCV) 10/10/2015 10/09/2014 Diabetes: Hemoglobin A1c 11/08/2018 05/10/2018 Diabetes: Nephropathy Screening 05/13/2019 05/13/2018, 05/12/2018, 05/11/2018, Additional history exists Influenza Immunization (#1) 2024 05/26/2021, 0 10/09/2014 SARS-COV-2 Immunization ( season) 2024 08/16/2021, 11/18/2020 Respiratory Syncytial Virus (RSV) Immunization (Adult) (1 - 1-dose 75+ series) 11/01/2054 Meningococcal Immunization (ACWY) Aged Out No longer eligible based on patient's age to complete this topic Rotavirus Immunization Aged Out No lo nger eligible based on patient's age to complete this topic Goals Goal Patient Goal Type Associated Problems Recent Progress Patient-Stated? Author I would like to work through some unresolved stuff with his ex . 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 will verbalize understanding of depression and anxiety, ex: causes/contributing and risk factors, prevalence of conditions in the general population. will identify two or more skills to gain peace and relieve stress. anxiety/depression Behavioral Health On track(2020 3:33 PM SENIOR ENERGY TRADER) No Heather Montez, SCALE AGENT Note: Department associated with goal: [facility] Goal Reviewed with: patient Readiness to change: Ready to change Department associated with goal: [facility] Steps to achieve goal: Goal Reviewed with: patient Readiness to change: Ready to change Department associated with goal: [facility] Steps to achieve goal: will identify at least two coping skills/activities/habits that have helped to manage anxiety in the past. will identify at least three new coping skills/activities/habits that may help to prevent and/or cope with anxiety. 3. will identify a plan to implement coping skills and follow this plan for two weeks and evaluate the impact on anxiety 4. Will attend individual and/or group therapy at least 1x/month Procedures Procedure Name Priority Date/Time Associated Diagnosis Comments CMP (COMPREHENSIVE METABOLIC PANEL) Routine 05/13/2018 4:39 AM CDT HEMOGLOBIN A1C W/ ESTIMATED GLUCOSE STAT 05/10/2018 8:30 PM CDT from Last 3 Months or Most Recently Relevant to Health Maintenance Results * (ABNORMAL) Comprehensive Metabolic Panel (CMP) (05/13/2018 4:39 AM CDT) SODIUM 135(L) 136 - 144 mmol/L 05/13/2018 6:06 AM CDT [facility] POTASSIUM 4.3 3.5 - 5.1 mmol/L 05/13/2018 6:06 AM [facility] CHLORIDE 99(L) 100 - 110 mmol/L 05/13/2018 6:06 AM [facility] CO2, VENOUS 23 22 - 32 mmol/L 05/13/2018 6:06 AM [facility] ANION GAP 17.3 8.0 - 20.0 mmol/L 05/13/2018 6:06 AM [facility] GLUCOSE 128(H) 70 - 99 mg/dL 05/13/2018 6:06 AM [facility] BUN 22(H) 6 - 20 mg/dL 05/13/2018 6:06 AM [facility] CREATININE, BLOOD 1.33(H) 0.80 - 1.30 mg/dL 05/13/2018 6:06 AM [facility] BUN/CREATININE RATIO 17 12 - 20 ratio 05/13/2018 6:06 AM [facility] TOTAL PROTEIN 7.7 6.0 - 8.3 g/dL 05/13/2018 6:06 AM [facility] ALBUMIN 3.4(L) 3.5 - 5.2 g/dL 05/13/2018 6:06 AM [facility] Comment: The colormetric methods used for the determination of Albumin may lead to falsely elevated test results in patients suffering from renal failure or insufficiency due to interference with other proteins. A/G RATIO 0.8(L) 1.0 - 2.0 05/13/2018 6:06 AM [facility] CALCIUM 9.1 8.9 - 10.3 mg/dL 05/13/2018 6:06 AM [facility] T BILI 0.4 <=1.2 mg/dL 05/13/2018 6:06 AM [facility] SGOT (AST) 18 <=40 U/L 05/13/2018 6:06 AM [facility] SGPT (ALT) 21 <=41 U/L 05/13/2018 6:06 AM CDT [facility] ALKALINE PHOSPHATASE 88 40 - 130 U/L 05/13/2018 6:06 AM CDT [facility] GFR, EST. NONAFRICAN 60 >=60 05/13/2018 6:06 AM CDT [facility] GFR, EST. >60 >=60 018 6:06 AM CDT [facility] Comment: Creatinine Clearance is the preferred criteria for selecting drug dose adjustments in renally impaired patients. The GFR is provided as additional pertinent clinical information. GFR is reported in mL/min/1.73 sq m. Blood specimen (specimen) Butterfly Puncture / Unknown 05/13/2018 4:39 AM CDT 05/13/2018 5:33 AM CDT us Shilpa Samuel APRN, CNP CHEMISTRY ORDERABLE S Final Result Performing Organization Address City/[facility] Co de Phone Number [facility] [address] [place] [address] * (ABNORMAL) Hemoglobin A1C w/ Estimated Glucose (05/10/2018 8:30 PM CDT) HGB-A1C 8.6(H) 4.0 - 6.0 % 05/10/2018 9:23 PM CDT [facility] Est Average Glucose 200.1 mg/dL 05/10/2018 9:23 PM CDT [facility] Blood specimen (specimen) Venous Catheter (IV) / Unknown 05/10/2018 8:30 PM CDT 05/10/2018 9:04 PM CDT Narrative [facility] - 05/10/2018 9:23 PM CDT HEMOGLOBIN A1C: DIABETIC PATIENTS: WELL-CONTROLLED: 6.2 - 7.0 INTERMEDIATE WELL-CONTROLLED: 7.0 - 9.0 POORLY-CONTROLLED: >9.0 us Jose Rodríguez MD CHEMISTRY ORDERABLES Renay l Result [facility] [address] [place] [address] from Last 3 Months or Most Recently Relevant to Health Maintenance Insurance [facility] Advance Directives * Full Code (Latest Code Status on File) Date Activated Date Inactivated Comments 05/10/2018 10:39 PM 05/13/2018 3:27 PM CPR-Full Tr eatment: FULL ARREST: Attempt Resuscitation/CPR wit intubation and mechanical ventilation. PRE-ARREST: Use entire range of life support measures to stabilize the patient. Care Teams Bone Char Kiln Tender Relationship Specialty Start Date End Date Provider, Merry LARA PCP - General 05/10/18
--- OUTSIDE RECORDS SUMMARY | 2024-10-11 04:38 | XMS_ITS ---
Author Organization [facility] ([facility]) Address [address] [place] [id number] Care Team Providers Care Director Commercial Sales Name Role Phone Unavailable Unavailable Unavailable Allergies, Adverse Reactions, Alerts Allergy Name Allergy Type Status Severity Reaction(s) Onset Date Inactive Date Treating Clinician Comments No Known Allergies Allergy Active 2022-08 16:56:0 5 Medications Ordered Medication Name Filled Medication Name Start Date Stop Date Current Medication? Ordering Clinician Indication Dosage Frequency Signature (SIG) Comments Components Mircera 08-20 19:25: 35 Yes [id number] Number of Repeats Allowed: Frequency: WILBERT dosing, every three to four weeks Venofer 01-16 14:10: 18 Yes [id number] Number of Repeats Allowed: Frequency: Every monthDoses Ordered: Maintenanc e Dose 100 Milligram Route: Intravenou s Metoprolol Succinate 2022-08 20:07: 09 Yes Number of Repeats Allowed: Frequency: One time a day Atorvastati n Calcium 09-16 21:58: 55 Yes Number of Repeats Allowed: Frequency: One time a day Vitamin D (Ergocalcif michela) 09-16 21:51: 52 Yes Number of Repeats Allowed: Frequency: One time a day Chlorthalid one 09-16 21:51: 36 Yes Number of Repeats Allowed: Frequency: One time a day [place] Caps 09-16 21:49: 56 Yes Number of Repeats Allowed: Frequency: One time a day Rosuvastati n Calcium 09-14 15:35: 34 Yes Number of Repeats Allowed: Frequency: One time a day Escitalopra m Oxalate 09-14 15:30: 42 Yes Number of Repeats Allowed: Frequency: One time a day Gentamicin Sulfate 09-02 17:58: 08 Yes Number of Repeats Allowed: Frequency: One time a day Cefdinir 0 1- 17:56: 08 Yes Number of Repeats Allowed: 3Frequency : As needed Problems This patient has no known problems. Procedures Procedure Date / Time Performed Performing Clinician Chrissy ce Details PD Catheter 2022-08-18 06:00:00 Access Site Middle Quadrant (Rig ht) PD [id number] 06:00:00 Access Site Lower Quadrant (Left ) Access Use Start Date 2022-09-01 21:49:2 6 Access Use End Date 2022-10-14 06:00:00 Central Venous Catheter (CVC)2022-07-24 06:00:00 Access Site Other Access Use Start Date 2022-07-29 00:00:0 0 Access Use End Date 2022-10-14 06:00:00 DIALYSIS TREATMENT INFORMATION Conventional Hemodialysis Date Type Treatment Start Date Treatment End Date Pre-Treatment Vitals Post-Treatment Vitals Weight Gain BFR DFR Actual UF Dialysis Access October 10, 2024 [facility] October 09, 2024 [facility] October 08, 2024 [facility] October 07, 2024 [facility] October 06, 2024 [facility] October 05, 2024 [facility] October 04[facility] 2024 [facility] October 03, 2024 [facility] October 02, 2024 [facility] October 01[facility] 2024 [facility] September 30, 2024 [facility] September 29[facility] 2024 [facility] September 28, 2024 [facility] September 27, 2024 [facility] September 26, 2024 [facility] BP Sitting (Pre-Dialysis) 117/72 mmHg BP Standing (Pre-Dialysis) 117/71 mmHg Sitting Heart Rate Pre-Dialysis 60 BPM Standing Heart Rate Pre-Dialysis 64 BPM Temperature Pre-Dialysis 97.6 degF Weight Pre-Dialysis 90.6 kg September 26, 2024 [facility] September 25, 2024 [facility] September 23, 2024 [facility] September 21, 2024 [facility] September 20[facility] 2024 [facility] September 19, 2024 [facility] September 18, 2024 [facility] BP Sitting (Pre-Dialysis) 120/70 mmHg BP Standing (Pre-Dialysis) 112/72 mmHg Sitting Heart Rate Pre-Dialysis 64 BPM Standing Heart Rate Pre-Dialysis 68 BPM Temperature Pre-Dialysis 98.6 degF Weight Pre-Dialysis 91.6 kg September 18, 2024 [facility] September 17, 2024 [facility] September 13, 2024 [facility] September 11, 2024 [facility] September 10, 2024 [facility] September 09, 2024 [facility] September 07, 2024 [facility] September 05, 2024 [facility] September 04, 2024 [facility] September 02, 2024 [facility] September 01, 2024 [facility] August 31, 2024 [facility] August 29, 2024 [facility] BP Sitting (Pre-Dialysis) 123/75 mmHg BP Standing (Pre-Dialysis) 120/71 mmHg Sitting Heart Rate Pre-Dialysis 67 BPM Standing Heart Rate Pre-Dialysis 66 BPM Temperature Pre-Dialysis 97.9 degF Weight Pre-Dialysis 91.9 kg August 29, 2024 [facility] August 27, 2024 [facility] August 25, 2024 [facility] August 24, 2024 [facility] August 21, 2024 [facility] August 20, 2024 [facility] August 19, 2024 [facility] August 18, 2024 [facility] August 17, 2024 [facility] August 16, 2024 [facility] BP Sitting (Pre-Dialysis) 136/77 mmHg BP Standing (Pre-Dialysis) 124/76 mmHg Sitting Heart Rate Pre-Dialysis 64 BPM Standing Heart Rate Pre-Dialysis 67 BPM Temperature Pre-Dialysis 98.2 degF Weight Pre-Dialysis 91.9 kg August 16, 2024 [facility] August 14, 2024 [facility] August 12, 2024 [facility] August 08, 2024 [facility] August 06, 2024 [facility] August 05, 2024 [facility] August 02, 2024 [facility] July 29, 2024 [facility] July 28, 2024 [facility] July 27, 2024 [facility] July 26, 2024 [facility] July 25, 2024 [facility] BP Sitting (Pre-Dialysis) 145/79 mmHg BP Standing (Pre-Dialysis) 124/73 mmHg Sitting Heart Rate Pre-Dialysis 55 BPM Standing Heart Rate Pre-Dialysis 55 BPM Temperature Pre-Dialysis 98.1 degF Weight Pre-Dialysis 94.7 kg July 25, 2024 [facility] July 24, 2024 [facility] July 23, 2024 [facility] July 21, 2024 [facility] July 19, 2024 [facility] July 18, 2024 [facility] BP Sitting (Pre-Dialysis) 180/104 mmH g BP Standing (Pre-Dialysis) 174/98 mmHg Sitting Heart Rate Pre-Dialysis 58 BPM Standing Heart Rate Pre-Dialysis 58 BPM Temperature Pre-Dialysis 98 degF Weight Pre-Dialysis 94.7 kg July 18, 2024 [facility] July 17, 2024 [facility] July 16, 2024 [facility] July 15, 2024 [facility] July 13, 2024 [facility] July 12, 2024 [facility] July 11, 2024 [facility] July 10, 2024 [facility] July 09, 2024 [facility] July 08, 2024 [facility] July 07, 2024 [facility] July 06, 2024 [facility] July 05, 2024 [facility] July 03, 2024 [facility] July 01, 2024 [facility] June 30, 2024 [facility] June 29, 2024 [facility] June 28, 2024 [facility] BP Sitting (Pre-Dialysis) 168/71 mmHg Sitting Heart Rate Pre-Dialysis 77 BPM Temperature Pre-Dialysis 98 degF Weight Pre-Dialysis 96.7 kg June 28, 2024 [facility] June 27, 2024 [facility] BP Sitting (Pre-Dialysis) 172/91 mmHg BP Standing (Pre-Dialysis) 163/87 mmHg Sitting Heart Rate Pre-Dialysis 69 BPM Standing Heart Rate Pre-Dialysis 72 BPM Temperature Pre-Dialysis 99.1 degF Weight Pre-Dialysis 96.5 kg June 27, 2024 [facility] June 25, 2024 [facility] June 24, 2024 [facility] June 23, 2024 [facility] June 21, 2024 [facility] June 19, 2024 [facility] BP Sitting (Pre-Dialysis) 132/77 mmHg BP Standing (Pre-Dialysis) 129/74 mmHg Sitting Heart Rate Pre-Dialysis 65 BPM Standing Heart Rate Pre-Dialysis 67 BPM Temperature Pre-Dialysis 98.7 degF Weight Pre-Dialysis 96.9 kg June 18, 2024 [facility] June 15, 2024 [facility] June 14, 2024 [facility] June 13, 2024 [facility] June 12, 2024 [facility] June 11, 2024 [facility] June 09, 2024 [facility] June 08, 2024 [facility] June 07, 2024 [facility] June 06, 2024 [facility] June 04, 2024 [facility] June 03, 2024 [facility] June 02, 2024 [facility] May 31, 2024 [facility] May 30, 2024 [facility] May 29, 2024 [facility] May 28, 2024 [facility] May 27, 2024 [facility] May 26, 2024 [facility] May 24, 2024 [facility] May 23, 2024 [facility] BP Sitting (Pre-Dialysis) 162/86 mmHg BP Standing (Pre-Dialysis) 143/79 mmHg Sitting Heart Rate Pre-Dialysis 69 BPM Standing Heart Rate Pre-Dialysis 78 BPM Temperature Pre-Dialysis 97.8 degF Weight Pre-Dialysis 100.1 kg May 23, 2024 [facility] May 22, 2024 [facility] May 21, 2024 [facility] May 20, 2024 [facility] May 19, 2024 [facility] May 18, 2024 [facility] May 17, 2024 [facility] May 16, 2024 [facility] May 15, 2024 [facility] May 14, 2024 [facility] May 13, 2024 [facility] May 12, 2024 [facility] May 11, 2024 [facility] May 10, 2024 [facility] May 09, 2024 [facility] May 08, 2024 [facility] May 07, 2024 [facility] May 06, 2024 [facility] May 05, 2024 [facility] May 04, 2024 [facility] May 03, 2024 [facility] May 02, 2024 [facility] May 01, 2024 [facility] April 30, 2024 [facility] April 29, 2024 [facility] April 28, 2024 [facility] April 27, 2024 [facility] April 26, 2024 [facility] April 25, 2024 [facility] BP Sitting (Pre-Dialysis) 152/90 mmH g BP Standing (Pre-Dialysis) 144/82 mmHg Sitting Heart Rate Pre-Dialysis 65 BPM Standing Heart Rate Pre-Dialysis 67 BPM Temperature Pre-Dialysis 98.1 degF Weight Pre-Dialysis 100.2 kg April 25, 2024 [facility] April 24, 2024 [facility] April 23, 2024 [facility] April 22, 2024 [facility] April 21, 2024 [facility] BP Sitting (Pre-Dialysis) 156/87 mmH g BP Standing (Pre-Dialysis) 145/82 mmHg Sitting Heart Rate Pre-Dialysis 65 BPM Standing Heart Rate Pre-Dialysis 67 BPM Temperature Pre-Dialysis 98.4 degF Weight Pre-Dialysis 100.1 kg April 21, 2024 [facility] April 20, 2024 [facility] April 18, 2024 [facility] April 17, 2024 [facility] April 15, 2024 [facility] April 13, 2024 [facility] April 11, 2024 [facility] April 09, 2024 [facility] April 07, 2024 [facility] April 04, 2024 [facility] April 02, 2024 [facility] March 31, 2024 [facility] March 30, 2024 [facility] March 29, 2024 [facility] March 28, 2024 [facility] BP Sitting (Pre-Dialysis) 184/96 mmHg BP Standing (Pre-Dialysis) 162/89 mmHg Sitting Heart Rate Pre-Dialysis 70 BPM Standing Heart Rate Pre-Dialysis 71 BPM Temperature Pre-Dialysis 98.2 degF Weight Pre-Dialysis 102.4 kg March 28, 2024 [facility] March 27, 2024 [facility] March 26, 2024 [facility] March 25, 2024 [facility] March 24, 2024 [facility] March 23, 2024 [facility] March 22, 2024 [facility] March 21, 2024 [facility] March 20, 2024 [facility] March 19, 2024 [facility] March 18, 2024 [facility] March 17, 2024 [facility] March 16, 2024 [facility] March 15, 2024 [facility] March 14, 2024 [facility] BP Sitting (Pre-Dialysis) 165/90 mmHg BP Standing (Pre-Dialysis) 138/81 mmHg Sitting Heart Rate Pre-Dialysis 78 BPM Standing Heart Rate Pre-Dialysis 81 BPM Temperature Pre-Dialysis 99 degF Weight Pre-Dialysis 102.4 kg March 14, 2024 [facility] March 13, 2024 [facility] March 12, 2024 [facility] March 11, 2024 [facility] March 10, 2024 [facility] March 09, 2024 [facility] March 08, 2024 [facility] March 07, 2024 [facility] March 06, 2024 [facility] March 05, 2024 [facility] March 04, 2024 [facility] March 03, 2024 [facility] March 02, 2024 [facility] March 01, 2024 [facility] February 29, 2024 [facility] February 28, 2024 [facility] February 27, 2024 [facility] February 26, 2024 [facility] February 25, 2024 [facility] February 24, 2024 [facility] February 23, 2024 [facility] February 22, 2024 [facility] BP Sitting (Pre-Dialysis) 185/93 mmHg BP Standing (Pre-Dialysis) 164/87 mmHg Sitting Heart Rate Pre-Dialysis 64 BPM Standing Heart Rate Pre-Dialysis 67 BPM Temperature Pre-Dialysis 98.1 degF Weight Pre-Dialysis 102.4 kg February 22, 2024 [facility] February 21, 2024 [facility] February 20, 2024 [facility] February 19, 2024 [facility] February 18, 2024 [facility] February 17, 2024 [facility] February 16, 2024 [facility] February 15, 2024 [facility] February 14, 2024 [facility] February 13, 2024 [facility] February 12, 2024 [facility] February 11, 2024 [facility] February 10, 2024 [facility] February 09, 2024 [facility] February 08, 2024 [facility] February 07, 2024 [facility] February 06, 2024 [facility] February 05, 2024 [facility] February 04, 2024 [facility] February 03, 2024 [facility] BP Sitting (Pre-Dialysis) 188/99 mmHg BP Standing (Pre-Dialysis) 189/99 mmHg Sitting Heart Rate Pre-Dialysis 95 BPM Standing Heart Rate Pre-Dialysis 93 BPM Temperature Pre-Dialysis 98 degF Weight Pre-Dialysis 102.4 kg February 03, 2024 [facility] February 02, 2024 [facility] February 01, 2024 [facility] January 31, 2024 [facility] January 30, 2024 [facility] January 29, 2024 [facility] January 28, 2024 [facility] January 27, 2024 [facility] January 26, 2024 [facility] January 25, 2024 [facility] January 24, 2024 [facility] January 23, 2024 [facility] January 22, 2024 [facility] January 21, 2024 [facility] January 20, 2024 [facility] January 19, 2024 [facility] January 18, 2024 [facility] January 17, 2024 [facility] January 16, 2024 [facility] January 15, 2024 [facility] January 14, 2024 [facility] BP Sitting (Pre-Dialysis) 181/103 mmHg BP Standing (Pre-Dialysis) 186/104 mmHg Sitting Heart Rate Pre-Dialysis 79 BPM Standing Heart Rate Pre-Dialysis 82 BPM Temperature Pre-Dialysis 98.3 degF Weight Pre-Dialysis 102.4 kg January 14, 2024 [facility] January 13, 2024 [facility] January 12, 2024 [facility] January 11, 2024 [facility] January 10, 2024 [facility] January 09, 2024 [facility] January 08, 2024 [facility] January 07, 2024 [facility] January 03, 2024 [facility] January 02, 2024 [facility] December 31, 2023 [facility] December 30, 2023 [facility] December 28, 2023 [facility] BP Sitting (Pre-Dialysis) 191/95 mmHg BP Standing (Pre-Dialysis) 178/102 mmHg Sitting Heart Rate Pre-Dialysis 65 BPM Standing Heart Rate Pre-Dialysis 70 BPM Temperature Pre-Dialysis 98.4 degF Weight Pre-Dialysis 99.7 kg December 28, 2023 [facility] December 27, 2023 [facility] December 26, 2023 [facility] December 24, 2023 [facility] December 23, 2023 [facility] December 21, 2023 [facility] December 19, 2023 [facility] December 17, 2023 [facility] December 16, 2023 [facility] December 14, 2023 [facility] December 11, 2023 [facility] December 10, 2023 [facility] BP Sitting (Pre-Dialysis) 189/104 mmHg BP Standing (Pre-Dialysis) 180/106 mmHg Sitting Heart Rate Pre-Dialysis 88 BPM Standing Heart Rate Pre-Dialysis 88 BPM Temperature Pre-Dialysis 97.3 degF Weight Pre-Dialysis 102 kg December 10, 2023 [facility] December 08, 2023 [facility] December 06, 2023 [facility] December 05, 2023 [facility] December 04, 2023 [facility] December 03, 2023 [facility] December 02, 2023 [facility] November 30[facility] 2023 [facility] November 29, 2023 [facility] November 27, 2023 [facility] November 26, 2023 [facility] November 24, 2023 [facility] November 23, 2023 [facility] BP Sitting (Pre-Dialysis) 188/99 mmHg BP Standing (Pre-Dialysis) 180/100 mmHg Sitting Heart Rate Pre-Dialysis 62 BPM Standing Heart Rate Pre-Dialysis 68 BPM Temperature Pre-Dialysis 98.1 degF Weight Pre-Dialysis 102.4 kg November 22, 2023 [facility] November 20, 2023 [facility] November 18, 2023 [facility] November 15, 2023 [facility] BP Sitting (Pre-Dialysis) 186/101 mmHg BP Standing (Pre-Dialysis) 161/100 mmHg Sitting Heart Rate Pre-Dialysis 92 BPM Standing Heart Rate Pre-Dialysis 94 BPM Temperature Pre-Dialysis 98.8 degF Weight Pre-Dialysis 102.4 kg November 15, 2023 [facility] November 14, 2023 [facility] November 13, 2023 [facility] November 12, 2023 [facility] November 11[facility] 2023 [facility] November 10[facility] 2023 [facility] November 09[facility] 2023 [facility] November 08[facility] 2023 [facility] November 07, 2023 [facility] November 06, 2023 [facility] November 05[facility] 2023 [facility] November 04, 2023 [facility] November 03, 2023 [facility] 2023 [facility] November 01, 2023 [facility] October 31, 2023 [facility] October 30[facility] 2023 [facility] October 29, 2023 [facility] October 28[facility] 2023 [facility] October 27, 2023 [facility] October 26, 2023 [facility] BP Sitting (Pre-Dialysis) 187/106 mmHg BP Standing (Pre-Dialysis) 162/96 mmHg Sitting Heart Rate Pre-Dialysis 82 BPM Standing Heart Rate Pre-Dialysis 87 BPM Temperature Pre-Dialysis 98.1 degF Weight Pre-Dialysis 101.9 kg October 26, 2023 [facility] October 25, 2023 [facility] October 24, 2023 [facility] October 23, 2023 [facility] October 22, 2023 [facility] October 21, 2023 [facility] October 20, 2023 [facility] October 19, 2023 [facility] October 18, 2023 [facility] October 17, 2023 [facility] October 16, 2023 [facility] October 15, 2023 [facility] BP Sitting (Pre-Dialysis) 183/107 mmHg Sitting Heart Rate Pre-Dialysis 78 BPM Temperature Pre-Dialysis 98.1 degF Weight Pre-Dialysis 101.9 kg October 15, 2023 [facility] October 14, 2023 [facility] October 13, 2023 [facility] October 12, 2023 [facility] October 11, 2023 [facility] October 10, 2023 [facility] October 08, 2023 [facility] October 07, 2023 [facility] October 06, 2023 [facility] October 02, 2023 [facility] October 01, 2023 [facility] September 30, 2023 [facility] September 29, 2023 [facility] September 28, 2023 [facility] BP Sitting (Pre-Dialysis) 153/88 mmHg BP Standing (Pre-Dialysis) 128/79 mmHg Sitting Heart Rate Pre-Dialysis 59 BPM Standing Heart Rate Pre-Dialysis 59 BPM Temperature Pre-Dialysis 98.2 degF Weight Pre-Dialysis 102.4 kg September 28, 2023 [facility] September 27, 2023 [facility] September 26, 2023 [facility] September 24, 2023 [facility] September 23, 2023 [facility] September 22, 2023 [facility] September 20, 2023 [facility] September 19, 2023 [facility] September 18, 2023 [facility] September 17, 2023 [facility] September 16, 2023 [facility] September 15, 2023 [facility] September 14, 2023 [facility] September 13, 2023 [facility] September 12, 2023 [facility] September 11, 2023 [facility] September 10, 2023 [facility] BP Sitting (Pre-Dialysis) 161/93 mmHg BP Standing (Pre-Dialysis) 142/90 mmHg Sitting Heart Rate Pre-Dialysis 61 BPM Standing Heart Rate Pre-Dialysis 66 BPM Temperature Pre-Dialysis 97.3 degF Weight Pre-Dialysis 102.4 kg September 10, 2023 [facility] September 09, 2023 [facility] September 08, 2023 [facility] September 07, 2023 [facility] September 06, 2023 [facility] September 05, 2023 [facility] September 04, 2023 [facility] September 03, 2023 [facility] September 02, 2023 [facility] September 01, 2023 [facility] August 31, 2023 [facility] August 30, 2023 [facility] August 29, 2023 [facility] August 28, 2023 [facility] August 27, 2023 [facility] August 26, 2023 [facility] August 25, 2023 [facility] August 24, 2023 [facility] BP Sitting (Pre-Dialysis) 182/90 mmHg BP Standing (Pre-Dialysis) 163/91 mmHg Sitting Heart Rate Pre-Dialysis 58 BPM Standing Heart Rate Pre-Dialysis 62 BPM Temperature Pre-Dialysis 97.2 degF Weight Pre-Dialysis 102.4 kg August 24, 2023 [facility] August 23, 2023 [facility] August 22, 2023 [facility] August 21, 2023 [facility] August 20, 2023 [facility] August 19, 2023 [facility] August 18, 2023 [facility] August 17, 2023 [facility] BP Sitting (Pre-Dialysis) 156/87 mmHg BP Standing (Pre-Dialysis) 153/82 mmHg Sitting Heart Rate Pre-Dialysis 53 BPM Standing Heart Rate Pre-Dialysis 73 BPM Temperature Pre-Dialysis 97.9 degF Weight Pre-Dialysis 102.4 kg August 17, 2023 [facility] August 16, 2023 [facility] August 15, 2023 [facility] August 14, 2023 [facility] August 13, 2023 [facility] August 12, 2023 [facility] August 11, 2023 [facility] August 10, 2023 [facility] August 09, 2023 [facility] August 08, 2023 [facility] August 07, 2023 [facility] August 06, 2023 [facility] August 05, 2023 [facility] August 04, 2023 [facility] August 03, 2023 [facility] August 02, 2023 [facility] August 01, 2023 [facility] July 31, 2023 [facility] July 30, 2023 [facility] July 29, 2023 [facility] July 28, 2023 [facility] July 27, 2023 [facility] BP Sitting (Pre-Dialysis) 174/93 mmHg BP Standing (Pre-Dialysis) 160/97 mmHg Sitting Heart Rate Pre-Dialysis 63 BPM Standing Heart Rate Pre-Dialysis 73 BPM Temperature Pre-Dialysis 96.8 degF Weight Pre-Dialysis 102.4 kg July 27, 2023 [facility] July 26, 2023 [facility] July 25, 2023 [facility] July 24, 2023 [facility] July 23, 2023 [facility] July 22, 2023 [facility] July 21, 2023 [facility] July 20, 2023 [facility] July 19, 2023 [facility] July 18, 2023 [facility] July 17, 2023 [facility] July 16, 2023 [facility] July 15, 2023 [facility] BP Sitting (Pre-Dialysis) 169/90 mmHg BP Standing (Pre-Dialysis) 147/89 mmHg Sitting Heart Rate Pre-Dialysis 53 BPM Standing Heart Rate Pre-Dialysis 56 BPM Temperature Pre-Dialysis 98.1 degF Weight Pre-Dialysis 111.5 kg July 15, 2023 [facility] July 14, 2023 [facility] July 13, 2023 [facility] July 12, 2023 [facility] July 11, 2023 [facility] July 10, 2023 [facility] July 09, 2023 [facility] July 08, 2023 [facility] July 07, 2023 [facility] July 06, 2023 [facility] July 05, 2023 [facility] July 04, 2023 [facility] July 03, 2023 [facility] July 02, 2023 [facility] July 01, 2023 [facility] June 30, 2023 [facility] June 29, 2023 [facility] June 28[facility] 2023 [facility] June 27, 2023 [facility] June 26, 2023 [facility] June 25, 2023 [facility] June 24, 2023 [facility] June 23, 2023 [facility] June 22, 2023 [facility] BP Sitting (Pre-Dialysis) 159/91 mmHg BP Standing (Pre-Dialysis) 152/86 mmHg Sitting Heart Rate Pre-Dialysis 78 BPM Standing Heart Rate Pre-Dialysis 86 BPM Temperature Pre-Dialysis 98 degF Weight Pre-Dialysis 102.3 kg June 22, 2023 [facility] June 21, 2023 [facility] June 20, 2023 [facility] June 19, 2023 [facility] June 18, 2023 [facility] June 17, 2023 [facility] June 16, 2023 [facility] June 15, 2023 [facility] June 14, 2023 [facility] June 13, 2023 [facility] June 12, 2023 [facility] June 11, 2023 [facility] BP Sitting (Pre-Dialysis) 183/79 mmHg BP Standing (Pre-Dialysis) 144/91 mmHg Sitting Heart Rate Pre-Dialysis 89 BPM Standing Heart Rate Pre-Dialysis 90 BPM Temperature Pre-Dialysis 97.9 degF Weight Pre-Dialysis 101.9 kg June 11, 2023 [facility] June 10, 2023 [facility] June 09, 2023 [facility] June 08, 2023 [facility] June 07, 2023 [facility] June 06, 2023 [facility] June 05, 2023 [facility] June 04, 2023 [facility] June 03, 2023 [facility] June 02, 2023 [facility] June 01, 2023 [facility] May 31, 2023 [facility] May 30, 2023 [facility] May 29, 2023 [facility] May 28, 2023 [facility] May 27, 2023 [facility] May 26, 2023 [facility] May 25, 2023 [facility] BP Sitting (Pre-Dialysis) 158/87 mmHg BP Standing (Pre-Dialysis) 139/85 mmHg Sitting Heart Rate Pre-Dialysis 77 BPM Standing Heart Rate Pre-Dialysis 92 BPM Temperature Pre-Dialysis 97.5 degF Weight Pre-Dialysis 102.7 kg May 25, 2023 [facility] May 24, 2023 [facility] May 23, 2023 [facility] May 22, 2023 [facility] May 21, 2023 [facility] May 20, 2023 [facility] May 19, 2023 [facility] May 18, 2023 [facility] May 17, 2023 [facility] May 16, 2023 [facility] May 15, 2023 [facility] May 14, 2023 [facility] BP Sitting (Pre-Dialysis) 167/94 mmHg BP Standing (Pre-Dialysis) 143/97 mmHg Sitting Heart Rate Pre-Dialysis 70 BPM Standing Heart Rate Pre-Dialysis 80 BPM Temperature Pre-Dialysis 97.9 degF Weight Pre-Dialysis 102.4 kg May 14, 2023 [facility] May 13, 2023 [facility] May 12, 2023 [facility] May 11, 2023 [facility] May 10, 2023 [facility] May 09, 2023 [facility] May 08, 2023 [facility] May 07, 2023 [facility] May 06, 2023 [facility] May 05, 2023 [facility] May 04, 2023 [facility] May 03, 2023 [facility] May 02, 2023 [facility] May 01, 2023 [facility] April 30, 2023 [facility] April 29, 2023 [facility] April 28, 2023 [facility] April 27, 2023 [facility] BP Sitting (Pre-Dialysis) 152/99 mmH g BP Standing (Pre-Dialysis) 159/92 mmHg Sitting Heart Rate Pre-Dialysis 75 BPM Standing Heart Rate Pre-Dialysis 110 BPM Temperature Pre-Dialysis 98.8 degF Weight Pre-Dialysis 102 kg April 27, 2023 [facility] April 26, 2023 [facility] April 25, 2023 [facility] April 24, 2023 [facility] April 23, 2023 [facility] April 22, 2023 [facility] April 21, 2023 [facility] BP Sitting (Pre-Dialysis) 156/93 mmH g BP Standing (Pre-Dialysis) 137/87 mmHg Sitting Heart Rate Pre-Dialysis 80 BPM Standing Heart Rate Pre-Dialysis 98 BPM Temperature Pre-Dialysis 98.1 degF Weight Pre-Dialysis 101.9 kg April 21, 2023 [facility] April 20, 2023 [facility] April 19, 2023 [facility] April 18, 2023 [facility] April 17, 2023 [facility] April 16, 2023 [facility] April 15, 2023 [facility] April 14, 2023 [facility] April 13, 2023 [facility] April 12, 2023 [facility] April 11, 2023 [facility] April 10, 2023 [facility] April 09, 2023 [facility] April 08, 2023 [facility] April 07, 2023 [facility] April 06, 2023 [facility] April 05, 2023 [facility] April 04, 2023 [facility] April 03, 2023 [facility] April 02, 2023 [facility] April 01, 2023 [facility] March 31, 2023 [facility] March 30, 2023 [facility] March 29, 2023 [facility] March 28, 2023 [facility] March 27, 2023 [facility] March 26, 2023 [facility] March 25, 2023 [facility] March 24, 2023 [facility] March 23, 2023 [facility] BP Sitting (Pre-Dialysis) 125/88 mmHg BP Standing (Pre-Dialysis) 109/72 mmHg Sitting Heart Rate Pre-Dialysis 69 BPM Standing Heart Rate Pre-Dialysis 75 BPM Temperature Pre-Dialysis 97.7 degF Weight Pre-Dialysis 103.7 kg March 23, 2023 CCPD March 22, 2023 CCPD March 21, 2023 CCPD March 20, 2023 CCPD March 19, 2023 CCPD March 18, 2023 CCPD March 17, 2023 CCPD March 16, 2023 CCPD March 15, 2023 [facility]CPD BP Sitting (Pre-Dialysis) 129/80 mmHg BP Standing (Pre-Dialysis) 124/79 mmHg Sitting Heart Rate Pre-Dialysis 64 BPM Standing Heart Rate Pre-Dialysis 70 BPM Temperature Pre-Dialysis 98.1 degF Weight Pre-Dialysis 103.7 kg March 15, 2023 CCPD March 14, 2023 CCPD March 13, 2023 CCPD March 12, 2023 CCPD March 11, 2023 CCPD March 10, 2023 CCPD March 09, 2023 CCPD March 08, 2023 CCPD March 07, 2023 CCPD March 06, 2023 CCPD March 05, 2023 CCPD March 04, 2023 CCPD March 03, 2023 CCPD March 02, 2023 [facility]CPD BP Sitting (Pre-Dialysis) 194/104 mmHg BP Standing (Pre-Dialysis) 192/106 mmHg Sitting Heart Rate Pre-Dialysis 81 BPM Standing Heart Rate Pre-Dialysis 81 BPM Temperature Pre-Dialysis 97.2 degF Weight Pre-Dialysis 104 kg March 02, 2023 CCPD March 01, 2023 CCPD February 28, 2023 CCPD February 27, 2023 CCPD February 26, 2023 CCPD February 25, 2023 CCPD February 24, 2023 CCPD February 23, 2023 CCPD February 22, 2023 CCPD February 21, 2023 CCPD February 20, 2023 CCPD February 19, 2023 [facility]CPD BP Sitting (Pre-Dialysis) 170/88 mmHg BP Standing (Pre-Dialysis) 125/83 mmHg Sitting Heart Rate Pre-Dialysis 68 BPM Standing Heart Rate Pre-Dialysis 73 BPM Temperature Pre-Dialysis 97.5 degF Weight Pre-Dialysis 102.8 kg February 19, 2023 CCPD February 18, 2023 CCPD February 17, 2023 CCPD February 16, 2023 CCPD February 15, 2023 CCPD February 14, 2023 CCPD February 13, 2023 CCPD February 12, 2023 CCPD February 11, 2023 CCPD February 10, 2023 CCPD February 09, 2023 CCPD February 08, 2023 CCPD February 07, 2023 CCPD February 06, 2023 CCPD February 05, 2023 CCPD February 04, 2023 CCPD February 03, 2023 CCPD February 02, 2023 CCPD February 01, 2023 CCPD January 31, 2023 CCPD January 30, 2023 CCPD January 29, 2023 CCPD January 28, 2023 CCPD January 27, 2023 CCPD January 26, 2023 CCPD BP Sitting (Pre-Dialysis) 153/91 mmHg BP Standing (Pre-Dialysis) 134/83 mmHg Sitting Heart Rate Pre-Dialysis 68 BPM Standing Heart Rate Pre-Dialysis 72 BPM Temperature Pre-Dialysis 98.1 degF Weight Pre-Dialysis 100.9 kg January 26, 2023 CCPD January 25, 2023 CCPD January 24, 2023 CCPD January 23, 2023 CCPD January 22, 2023 CCPD January 21, 2023 CCPD January 20, 2023 CCPD January 19, 2023 CCPD January 18, 2023 CCPD January 17, 2023 CCPD January 16, 2023 CCPD January 15, 2023 CCPD January 14, 2023 CCPD January 13, 2023 CCPD BP Sitting (Pre-Dialysis) 152/86 mmHg BP Standing (Pre-Dialysis) 138/82 mmHg Sitting Heart Rate Pre-Dialysis 57 BPM Standing Heart Rate Pre-Dialysis 59 BPM Temperature Pre-Dialysis 97.7 degF Weight Pre-Dialysis 100.7 kg January 13, 2023 CCPD January 12, 2023 CCPD January 11, 2023 CCPD January 10, 2023 CCPD January 09, 2023 CCPD January 08, 2023 CCPD January 07, 2023 CCPD January 06, 2023 CCPD January 05, 2023 CCPD January 04, 2023 CCPD January 03, 2023 CCPD January 02, 2023 CCPD January 01, 2023 CCPD December 31, 2022 CCPD December 30, 2022 CCPD December 29, 2022 CCPD December 28, 2022 CCPD December 27, 2022 CCPD December 26, 2022 CCPD December 25, 2022 CCPD December 24, 2022 CCPD December 23, 2022 CCPD December 22, 2022 CCP BP Sitting (Pre-Dialysis) 186/94 mmHg BP Standing (Pre-Dialysis) 182/95 mmHg Sitting Heart Rate Pre-Dialysis 74 BPM Standing Heart Rate Pre-Dialysis 81 BPM Temperature Pre-Dialysis 98.1 degF Weight Pre-Dialysis 101.2 kg December 22, 2022 CCPD December 21, 2022 CCPD December 20, 2022 CCPD December 19, 2022 CCPD December 18, 2022 CCPD December 17, 2022 CCPD December 16, 2022 CCPD December 15, 2022 CCPD December 14, 2022 CCPD December 13, 2022 CCPD December 12, 2022 CCPD December 11, 2022 CCPD December 10, 2022 CCPD BP Sitting (Pre-Dialysis) 170/83 mmHg BP Standing (Pre-Dialysis) 159/94 mmHg Sitting Heart Rate Pre-Dialysis 93 BPM Standing Heart Rate Pre-Dialysis 103 BPM Temperature Pre-Dialysis 97 degF Weight Pre-Dialysis 101.6 kg December 10, 2022 CCPD December 09, 2022 CCPD December 08, 2022 CCPD December 07, 2022 CCPD December 06, 2022 CCPD December 05, 2022 CCPD December 04, 2022 CCPD December 03, 2022 CCPD December 02, 2022 CCPD December 01, 2022 CCPD November 30, 2022 CCPD November 29, 2022 CCPD November 28, 2022 CCPD November 27, 2022 CCPD November 26, 2022 CCPD November 25, 2022 CCPD November 24, 2022 CCPD BP Sitting (Pre-Dialysis) 174/100 mmHg BP Standing (Pre-Dialysis) 164/101 mmHg Sitting Heart Rate Pre-Dialysis 80 BPM Standing Heart Rate Pre-Dialysis 84 BPM Temperature Pre-Dialysis 97.9 degF Weight Pre-Dialysis 101 kg November 24, 2022 CCPD November 23, 2022 CCPD November 22, 2022 CCPD November 21, 2022 CCPD November 20, 2022 CCPD November 19, 2022 CCPD November 18, 2022 CCPD November 17, 2022 CCPD November 16, 2022 CCPD November 15, 2022 CCPD November 14, 2022 CCPD November 13, 2022 CCPD BP Sitting (Pre-Dialysis) 178/102 mmHg BP Standing (Pre-Dialysis) 159/95 mmHg Sitting Heart Rate Pre-Dialysis 74 BPM Standing Heart Rate Pre-Dialysis 79 BPM Temperature Pre-Dialysis 97.3 degF Weight Pre-Dialysis 97 kg November 13, 2022 CCPD November 12, 2022 CCPD November 11, 2022 CCPD November 10, 2022 CCPD November 09, 2022 CCPD November 08, 2022 CCPD November 07, 2022 CCPD November 06, 2022 CCPD November 05, 2022 CCPD November 04, 2022 CCPD November 03, 2022 CCPD 2022 CCPD November 01, 2022 CCPD October 31, 2022 CCPD October 30, 2022 CCPD October 29, 2022 CCPD October 28, 2022 CCPD October 27, 2022 CCPD BP Sitting (Pre-Dialysis) 158/89 mmHg BP Standing (Pre-Dialysis) 151/95 mmHg Sitting Heart Rate Pre-Dialysis 82 BPM Standing Heart Rate Pre-Dialysis 91 BPM Temperature Pre-Dialysis 97.5 degF Weight Pre-Dialysis 100.4 kg October 27, 2022 CCPD October 26, 2022 CCPD October 25, 2022 CCPD October 24, 2022 CCPD October 23, 2022 CCPD October 22, 2022 CCPD October 21, 2022 CCPD October 20, 2022 CCPD October 19, 2022 CCPD October 18, 2022 CCPD October 17, 2022 CCPD October 16, 2022 CCPD October 15, 2022 CCPD October 14, 2022 CCP BP Sitting (Pre-Dialysis) 150/86 mmHg BP Standing (Pre-Dialysis) 136/76 mmHg Sitting Heart Rate Pre-Dialysis 65 BPM Standing Heart Rate Pre-Dialysis 66 BPM Temperature Pre-Dialysis 97.2 degF Weight Pre-Dialysis 97.8 kg October 14, 2022 CCPD October 13, 2022 CCPD October 12, 2022 CCPD October 11, 2022 CCPD October 10, 2022 CCPD October 09, 2022 CCPD October 08, 2022 CCPD October 07, 2022 CCPD October 06, 2022 CCPD October 05, 2022 CCPD October 04, 2022 CCPD October 03, 2022 CCPD October 02, 2022 CCPD October 01, 2022 CCPD September 30, 2022 CCPD September 29, 2022 CCPD BP Sitting (Pre-Dialysis) 155/91 mmHg BP Standing (Pre-Dialysis) 149/72 mmHg Sitting Heart Rate Pre-Dialysis 64 BPM Standing Heart Rate Pre-Dialysis 61 BPM Temperature Pre-Dialysis 97.7 degF Weight Pre-Dialysis 94.2 kg September 29, 2022 CCPD September 28, 2022 CCPD September 27, 2022 CCPD September 26, 2022 CCPD September 25, 2022 CCPD September 24, 2022 CCPD September 23, 2022 CCPD September 22, 2022 CCPD BP Sitting (Pre-Dialysis) 150/106 mmH g BP Standing (Pre-Dialysis) 164/89 mmHg Sitting Heart Rate Pre-Dialysis 66 BPM Standing Heart Rate Pre-Dialysis 75 BPM Temperature Pre-Dialysis 97.3 degF Weight Pre-Dialysis 95.5 kg September 22, 2022 CCPD September 21, 2022 CCPD September 20, 2022 CCPD September 19, 2022 CCPD September 18, 2022 CCPD September 17, 2022 CCPD September 16, 2022 [facility]D Training BP Sitting (Pre-Dialysis ) 145/81 mmHg BP Sitting (Post-Dialysi s) 149/80 mmHg BP Standing (Pre-Dialysis) 140/83 mmHg BP Standing (P ost-Dialysis) 132/82 mmHg Sitting Heart Rate Pre-Dialysis 61 BPM Sitting Heart Rate Post-Dialysis 57 BPM Standing Heart Rate Pre-Dialysis 65 BPM Standing Heart Rate Post-Dialysis 61 BPM Temperature Pre-Dialysis 97.2 degF Temperature Post -Dialysis 97.6 degF Weight Pre-Dialysis 94.7 kg Weight Post-Dialysis 94.5 kg September 15, 2022 [facility]D Training BP Sitting (Pre-Dialysis) 156/81 mmHg BP Sitting (Post-Dialysis) 164/85 mmHg BP Standing (Pre-Dialysis) 153/86 mmHg BP Standing (P ost-Dialysis) 149/89 mmHg Sitting Heart Rate Pre-Dialysis 66 BPM Sitting Heart Rate Post-Dialysis 57 BPM Standing Heart Rate Pre-Dialysis 69 BPM Standing Heart Rate Post-Dialysis 69 BPM Temperature Pre-Dialysis 96.8 degF Temperature Post -Dialysis 97.2 degF Weight Pre-Dialysis 94.5 kg Weight Post-Dialysis 94.3 kg September 14, 2022 [facility]D Training BP Sitting (Pre-Dialysis) 164/92 mmHg BP Sitting (Post-Dialysis) 160/86 mmHg BP Standing (Pre-Dialysis) 170/84 mmHg BP Standing (P ost-Dialysis) 164/92 mmHg Sitting Heart Rate Pre-Dialysis 89 BPM Sitting Heart Rate Post-Dialysis 65 BPM Standing Heart Rate Pre-Dialysis 84 BPM Standing Heart Rate Post-Dialysis 64 BPM Temperature Pre-Dialysis 97.4 degF Temperature Post -Dialysis 97.6 degF Weight Pre-Dialysis 95.2 kg Weight Post-Dialysis 95.1 kg September 11, 2022 In-Center Hemodialysis Treatment [id number]:50:34.000Z [id number]:20:34.000Z BP Sitting (Pre-Dialysis) 147/85 mmHg BP Sitting (Post-Dialysis) 130/75 mmHg Concurrent Access: falseCentral Venous Catheter (CVC) Other Arterial BP Standing (Pre-Dialysis) 130/78 mmHg BP Standing (P ost-Dialysis) 105/65 mmHg Sitting Heart Rate Pre-Dialysis 68 BPM Sitting Heart Rate Post-Dialysis 72 BPM Standing Heart Rate Pre-Dialysis 71 BPM Standing Heart Rate Post-Dialysis 82 BPM Temperature Pre-Dialysis 97.2 degF Temperature Post -Dialysis 97.6 degF September 10, 2022 [facility]D Training BP Sitting (Pre-Dialysis) 140/78 mmHg BP Sitting (Post-Dialysis) 150/89 mmHg BP Standing (Pre-Dialysis) 136/82 mmHg BP Standing (P ost-Dialysis) 132/80 mmHg Sitting Heart Rate Pre-Dialysis 65 BPM Sitting Heart Rate Post-Dialysis 61 BPM Standing Heart Rate Pre-Dialysis 72 BPM Standing Heart Rate Post-Dialysis 69 BPM Temperature Pre-Dialysis 97.2 degF Temperature Post -Dialysis 98 degF Weight Pre-Dialysis 94.1 kg Weight Post-Dialysis 93.9 kg September 09, 2022 In-Center Hemodialysis Treatment [id number]:46:18.000Z [id number]:13:18.000Z BP Sitting (Pre-Dialysis) 126/79 mmHg BP Sitting (Post-Dialysis) 127/78 mmHg Concurrent Access: falseCentral Venous Catheter (CVC) Other Arterial BP Standing (Pre-Dialysis) 100/61 mmHg BP Standing (P ost-Dialysis) 111/67 mmHg Sitting Heart Rate Pre-Dialysis 67 BPM Sitting Heart Rate Post-Dialysis 64 BPM Standing Heart Rate Pre-Dialysis 69 BPM Standing Heart Rate Post-Dialysis 76 BPM Temperature Pre-Dialysis 95.8 degF Temperature Post -Dialysis 97.7 degF September 08, 2022 [facility]D Training BP Sitting (Pre-Dialysis) 124/77 mmHg BP Sitting (Post-Dialysis) 130/70 mmHg BP Standing (Pre-Dialysis) 124/73 mmHg BP Standing (P ost-Dialysis) 128/77 mmHg Sitting Heart Rate Pre-Dialysis 72 BPM Sitting Heart Rate Post-Dialysis 73 BPM Standing Heart Rate Pre-Dialysis 76 BPM Standing Heart Rate Post-Dialysis 78 BPM Temperature Pre-Dialysis 97.5 degF Temperature Post -Dialysis 97.8 degF Weight Pre-Dialysis 93.2 kg Weight Post-Dialysis 93 kg September 07, 2022 In-Center Hemodialysis Treatment [id number]:58:34.000Z [id number]:08:34.000Z BP Sitting (Pre-Dialysis) 127/73 mmHg BP Sitting (Post-Dialysis) 120/74 mmHg Concurrent Access: falseCentral Venous Catheter (CVC) Other Arterial BP Standing (Pre-Dialysis) 127/72 mmHg BP Standing (P ost-Dialysis) 97/62 mmHg Sitting Heart Rate Pre-Dialysis 82 BPM Sitting Heart Rate Post-Dialysis 79 BPM Standing Heart Rate Pre-Dialysis 88 BPM Standing Heart Rate Post-Dialysis 101 BPM Temperature Pre-Dialysis 97.7 degF Temperature Post -Dialysis 97.4 degF September 04, 2022 In-Center Hemodialysis Treatment [id number]:05:00.000Z [id number]:07:01.000Z BP Sitting (Pre-Dialysis) 132/79 mmHg BP Sitting (Post-Dialysis) 131/86 mmHg Concurrent Access: falseCentral Venous Catheter (CVC) Other Arterial BP Standing (Pre-Dialysis) 107/73 mmHg BP Standing (P ost-Dialysis) 101/57 mmHg Sitting Heart Rate Pre-Dialysis 68 BPM Sitting Heart Rate Post-Dialysis 68 BPM Standing Heart Rate Pre-Dialysis 72 BPM Standing Heart Rate Post-Dialysis 80 BPM Temperature Pre-Dialysis 97.9 degF Temperature Post -Dialysis 97.6 degF September 03, 2022 [facility]D Training BP Sitting (Pre-Dialysis) 148/83 mmHg BP Sitting (Post-Dialysis) 125/83 mmHg BP Standing (Pre-Dialysis) 144/87 mmHg BP Standing (P ost-Dialysis) 142/82 mmHg Sitting Heart Rate Pre-Dialysis 74 BPM Sitting Heart Rate Post-Dialysis 69 BPM Standing Heart Rate Pre-Dialysis 65 BPM Standing Heart Rate Post-Dialysis 77 BPM Temperature Pre-Dialysis 97.3 degF Temperature Post -Dialysis 97.3 degF Weight Pre-Dialysis 93.7 kg Weight Post-Dialysis 93.5 kg September 02, 2022 [facility]D Training BP Sitting (Pre-Dialysis) 141/79 mmHg BP Sitting (Post-Dialysis) 135/87 mmHg BP Standing (Pre-Dialysis) 124/71 mmHg BP Standing (P ost-Dialysis) 130/88 mmHg Sitting Heart Rate Pre-Dialysis 90 BPM Sitting Heart Rate Post-Dialysis 72 BPM Standing Heart Rate Pre-Dialysis 74 BPM Standing Heart Rate Post-Dialysis 79 BPM Temperature Pre-Dialysis 97.3 degF Temperature Post -Dialysis 98.3 degF Weight Pre-Dialysis 93.5 kg Weight Post-Dialysis 93.4 kg September 01, 2022 [facility]CPD Training BP Sitting (Pre-Dialysis) 161/91 mmHg BP Sitting (Post-Dialysis) 143/89 mmHg BP Standing (Pre-Dialysis) 140/85 mmHg BP Standing (P ost-Dialysis) 128/87 mmHg Sitting Heart Rate Pre-Dialysis 75 BPM Sitting Heart Rate Post-Dialysis 78 BPM Standing Heart Rate Pre-Dialysis 75 BPM Standing Heart Rate Post-Dialysis 91 BPM Temperature Pre-Dialysis 98.6 degF Temperature Post -Dialysis 93.5 degF Weight Pre-Dialysis 93.6 kg Weight Post-Dialysis 93.5 kg August 31, 2022 In-Center Hemodialysis Treatment [id number]:43:02.000Z [id number]:47:01.000Z BP Sitting (Pre-Dialysis) 132/68 mmHg BP Sitting (Post-Dialysis) 114/71 mmHg Concurrent Access: falseCentral Venous Catheter (CVC) Other Arterial BP Standing (Pre-Dialysis) 111/69 mmHg BP Standing (P ost-Dialysis) 124/78 mmHg Sitting Heart Rate Pre-Dialysis 54 BPM Sitting Heart Rate Post-Dialysis 62 BPM Standing Heart Rate Pre-Dialysis 77 BPM Standing Heart Rate Post-Dialysis 66 BPM Temperature Pre-Dialysis 99.3 degF Temperature Post -Dialysis 98.3 degF August 28, 2022 In-Center Hemodialysis Treatment [id number]:59:00.000Z [id number]:53:46.000Z BP Sitting (Pre-Dialysis) 127/71 mmHg BP Sitting (Post-Dialysis) 124/78 mmHg Concurrent Access: falseCentral Venous Catheter (CVC) Other Arterial BP Standing (Pre-Dialysis) 127/71 mmHg BP Standing (P ost-Dialysis) 115/65 mmHg Sitting Heart Rate Pre-Dialysis 67 BPM Sitting Heart Rate Post-Dialysis 72 BPM Standing Heart Rate Pre-Dialysis 72 BPM Standing Heart Rate Post-Dialysis 89 BPM Temperature Pre-Dialysis 97.1 degF Temperature Post -Dialysis 98.2 degF August 26, 2022 In-Center Hemodialysis Treatment [id number]:42:00.000Z [id number]:43:46.000Z BP Sitting (Pre-Dialysis) 130/74 mmHg BP Sitting (Post-Dialysis) 130/76 mmHg Concurrent Access: falseCentral Venous Catheter (CVC) Other Arterial BP Standing (Pre-Dialysis) 121/72 mmHg BP Standing (P ost-Dialysis) 114/53 mmHg Sitting Heart Rate Pre-Dialysis 71 BPM Sitting Heart Rate Post-Dialysis 67 BPM Standing Heart Rate Pre-Dialysis 71 BPM Standing Heart Rate Post-Dialysis 83 BPM Temperature Pre-Dialysis 97.5 degF Temperature Post -Dialysis 98.6 degF August 24, 2022 In-Center Hemodialysis Treatment [id number]:14:00.000Z [id number]:17:46.000Z BP Sitting (Pre-Dialysis) 128/72 mmHg BP Sitting (Post-Dialysis) 105/70 mmHg Concurrent Access: falseCentral Venous Catheter (CVC) Other Arterial BP Standing (Pre-Dialysis) 120/69 mmHg BP Standing (P ost-Dialysis) 107/57 mmHg Sitting Heart Rate Pre-Dialysis 70 BPM Sitting Heart Rate Post-Dialysis 73 BPM Standing Heart Rate Pre-Dialysis 72 BPM Standing Heart Rate Post-Dialysis 86 BPM Temperature Pre-Dialysis 97.2 degF Temperature Post -Dialysis 97.6 degF August 21, 2022 In-Center Hemodialysis Treatment [id number]:46:14.000Z [id number]:46:15.000Z BP Sitting (Pre-Dialysis) 147/84 mmHg BP Sitting (Post-Dialysis) 131/86 mmHg Concurrent Access: falseCentral Venous Catheter (CVC) Other Arterial BP Standing (Pre-Dialysis) 132/80 mmHg BP Standing (P ost-Dialysis) 130/77 mmHg Sitting Heart Rate Pre-Dialysis 68 BPM Sitting Heart Rate Post-Dialysis 71 BPM Standing Heart Rate Pre-Dialysis 67 BPM Standing Heart Rate Post-Dialysis 84 BPM Temperature Pre-Dialysis 97 degF Temperature Post -Dialysis 98.1 degF August 19, 2022 In-Center Hemodialysis Treatment [id number]:39:00.000Z [id number]:49:15.000Z BP Sitting (Pre-Dialysis) 154/84 mmHg BP Sitting (Post-Dialysis) 133/82 mmHg Concurrent Access: falseCentral Venous Catheter (CVC) Other Arterial BP Standing (Pre-Dialysis) 140/77 mmHg BP Standing (P ost-Dialysis) 133/83 mmHg Sitting Heart Rate Pre-Dialysis 67 BPM Sitting Heart Rate Post-Dialysis 73 BPM Standing Heart Rate Pre-Dialysis 72 BPM Standing Heart Rate Post-Dialysis 77 BPM Temperature Pre-Dialysis 97.2 degF Temperature Post -Dialysis 97.7 degF August 17, 2022 In-Center Hemodialysis Treatment [id number]:41:14.000Z [id number]:44:15.000Z BP Sitting (Pre-Dialysis) 139/83 mmHg BP Sitting (Post-Dialysis) 125/74 mmHg Concurrent Access: falseCentral Venous Catheter (CVC) Other Arterial BP Standing (Pre-Dialysis) 152/83 mmHg BP Standing (P ost-Dialysis) 109/65 mmHg Sitting Heart Rate Pre-Dialysis 94 BPM Sitting Heart Rate Post-Dialysis 72 BPM Standing Heart Rate Pre-Dialysis 101 BPM Standing Heart Rate Post-Dialysis 100 BPM Temperature Pre-Dialysis 97.3 degF Temperature Post -Dialysis 97.6 degF August 14, 2022 In-Center Hemodialysis Treatment [id number]:37:57.000Z [id number]:40:57.000Z BP Sitting (Pre-Dialysis) 129/77 mmHg BP Sitting (Post-Dialysis) 119/77 mmHg Concurrent Access: falseCentral Venous Catheter (CVC) Other Arterial BP Standing (Pre-Dialysis) 112/64 mmHg BP Standing (P ost-Dialysis) 114/70 mmHg Sitting Heart Rate Pre-Dialysis 77 BPM Sitting Heart Rate Post-Dialysis 68 BPM Standing Heart Rate Pre-Dialysis 81 BPM Standing Heart Rate Post-Dialysis 85 BPM Temperature Pre-Dialysis 97.6 degF Temperature Post -Dialysis 97.7 degF August 12, 2022 In-Center Hemodialysis Treatment [id number]:38:00.000Z [id number]:39:57.000Z BP Sitting (Pre-Dialysis) 144/84 mmHg BP Sitting (Post-Dialysis) 122/79 mmHg Concurrent Access: falseCentral Venous Catheter (CVC) Other Arterial BP Standing (Pre-Dialysis) 153/87 mmHg BP Standing (P ost-Dialysis) 127/70 mmHg Sitting Heart Rate Pre-Dialysis 75 BPM Sitting Heart Rate Post-Dialysis 67 BPM Standing Heart Rate Pre-Dialysis 81 BPM Standing Heart Rate Post-Dialysis 83 BPM Temperature Pre-Dialysis 97.5 degF Temperature Post -Dialysis 97.8 degF August 10, 2022 In-Center Hemodialysis Treatment [id number]:40:00.000Z [id number]:41:49.000Z BP Sitting (Pre-Dialysis) 130/77 mmHg BP Sitting (Post-Dialysis) 130/74 mmHg Concurrent Access: falseCentral Venous Catheter (CVC) Other Arterial BP Standing (Pre-Dialysis) 139/94 mmHg BP Standing (P ost-Dialysis) 106/62 mmHg Sitting Heart Rate Pre-Dialysis 73 BPM Sitting Heart Rate Post-Dialysis 82 BPM Standing Heart Rate Pre-Dialysis 81 BPM Standing Heart Rate Post-Dialysis 92 BPM Temperature Pre-Dialysis 97 degF Temperature Post -Dialysis 97.8 degF August 07, 2022 In-Center Hemodialysis Treatment [id number]:52:04.000Z [id number]:53:04.000Z BP Sitting (Pre-Dialysis) 136/78 mmHg BP Sitting (Post-Dialysis) 139/86 mmHg Concurrent Access: falseCentral Venous Catheter (CVC) Other Arterial BP Standing (Pre-Dialysis) 122/80 mmHg BP Standing (P ost-Dialysis) 125/74 mmHg Sitting Heart Rate Pre-Dialysis 75 BPM Sitting Heart Rate Post-Dialysis 69 BPM Standing Heart Rate Pre-Dialysis 77 BPM Standing Heart Rate Post-Dialysis 82 BPM Temperature Pre-Dialysis 97.6 degF Temperature Post -Dialysis 97.7 degF August 05, 2022 In-Center Hemodialysis Treatment [id number]:47:00.000Z [id number]:49:04.000Z BP Sitting (Pre-Dialysis) 158/86 mmHg BP Sitting (Post-Dialysis) 120/82 mmHg Concurrent Access: falseCentral Venous Catheter (CVC) Other Arterial BP Standing (Pre-Dialysis) 145/84 mmHg BP Standing (P ost-Dialysis) 114/81 mmHg Sitting Heart Rate Pre-Dialysis 70 BPM Sitting Heart Rate Post-Dialysis 77 BPM Standing Heart Rate Pre-Dialysis 77 BPM Standing Heart Rate Post-Dialysis 85 BPM Temperature Pre-Dialysis 97.6 degF Temperature Post -Dialysis 97.6 degF August 03, 2022 In-Center Hemodialysis Treatment [id number]:41:00.000Z [id number]:45:04.000Z BP Sitting (Pre-Dialysis) 133/75 mmHg BP Sitting (Post-Dialysis) 128/82 mmHg Concurrent Access: falseCentral Venous Catheter (CVC) Other Arterial BP Standing (Pre-Dialysis) 126/73 mmHg BP Standing (P ost-Dialysis) 117/78 mmHg Sitting Heart Rate Pre-Dialysis 78 BPM Sitting Heart Rate Post-Dialysis 77 BPM Standing Heart Rate Pre-Dialysis 80 BPM Standing Heart Rate Post-Dialysis 89 BPM Temperature Pre-Dialysis 97.3 degF Temperature Post -Dialysis 97.6 degF July 31, 2022 In-Center Hemodialysis Treatment [id number]:38:00.000Z [id number]:40:01.000Z BP Sitting (Pre-Dialysis) 142/80 mmHg BP Sitting (Post-Dialysis) 131/73 mmHg Concurrent Access: falseCentral Venous Catheter (CVC) Other Arterial BP Standing (Pre-Dialysis) 136/79 mmHg BP Standing (P ost-Dialysis) 122/65 mmHg Sitting Heart Rate Pre-Dialysis 79 BPM Sitting Heart Rate Post-Dialysis 76 BPM Standing Heart Rate Pre-Dialysis 90 BPM Standing Heart Rate Post-Dialysis 96 BPM Temperature Pre-Dialysis 97 degF Temperature Post -Dialysis 96.6 degF July 29, 2022 In-Center Hemodialysis Treatment [id number]:45:00.000Z [id number]:47:02.000Z BP Sitting (Pre-Dialysis) 140/77 mmHg BP Sitting (Post-Dialysis) 146/86 mmHg Concurrent Access: falseCentral Venous Catheter (CVC) Other Arterial BP Standing (Pre-Dialysis) 141/81 mmHg BP Standing (P ost-Dialysis) 129/74 mmHg Sitting Heart Rate Pre-Dialysis 76 BPM Sitting Heart Rate Post-Dialysis 76 BPM Standing Heart Rate Pre-Dialysis 79 BPM Standing Heart Rate Post-Dialysis 101 BPM Temperature Pre-Dialysis 98.1 degF Temperature Post -Dialysis 97.6 degF DIALYSIS ORDER Dialysis Procedure Orders Type of Dialysis Procedure Order Order Date/Time Observations [facility] April 01, 2023 Target Weight 103.5 kg Ordered Access Type Peritoneal dialysis catheter Vendor [employer] Total Fill Volume per 24 Hour 00592 mL Target Cycler Total Time 9hr Treatment Location Display At Patient's Home Target Weight with Prescribed Day Fill N o Training Element No Training Incremental Increase Flag No Day Exchange Delivery Method No Day Exch lonny Overnight Exchange Delivery Method Cycle r Overnight Exchange Number of Exchanges 4 Overnight Exchange Calcium 2.5 mEq/L Overnight Exchange Magnesium 0.5 mEq/L Overnight Exchange Tidal Value 90 % Overnight Exchange Target Dwell Time 9 h r 0 Min Overnight Exchange Last Fill Target Dwel l TimeOvernight Exchange Info 15 hr Min Fill Number: 1 pd_solution_strength_code_id Varied-See Instruction(s) Fill Number: 2 fill_volume pd_solution_strength_code_id Varied-See Instruction(s) Fill Number: 3 fill_volume pd_solution_strength_code_id Varied-See Instruction(s) Fill Number: 4 fill_volume pd_solution_strength_code_id Varied-See Instruction(s) Fill Number: Last fill_volume pd_solution_strength_code_id Varied-See Instruction(s) Results Adequacy Description Draw Date Result/Unit Status Ref Range Result Comments L/WK RESID CC 2024-09-20 07:09:30 18.03 L/wk F UREA CLR UR 2024-09-20 07:09:30 1.4 mL/min F L/WK/1.73 RESID 2024-09-20 07:09:30 15.08 L/WK/B F KT/V TOTAL (M) 2024-09-20 07:09:30 1.81 Kt/V F L/WK/1.73 TOTAL 2024-09-20 07:09:30 71.61 L/WK/B F KT/V RESID (M) 2024-09-20 07:09:30 0.3 Kt/V F UREA CLR UR/BSA 2024-09-20 07:09:30 1.2 mL/min F 64.0-99.0 CRE CLR UR/BSA 2024-09-20 07:09:30 2 mL/min F 85.0-125.0 CRE CLR UR 2024-09-20 07:09:30 2 mL/min F 97.0-137.0 nPNA (PD MALE) 2024-09-20 07:09:30 1.09 G/KG/D F Urea Gen Rate 2024-09-20 07:09:30 15 GM/D F NPCR PD MALE 2024-09-20 07:09:30 0.96 G/KG/D F PCR PD MALE 2024-09-20 07:09:30 80 g/day F PNA (PD) 2024-09-20 07:09:30 90.5 g/day F Creatinine [Mass/volume] in Urine 2024-09-20 07:08:23 48.43 mg/dL F Urea nitrogen [Mass/volume] in Urine 2024-09-20 07:08:23 276 mg/dL F L/WK/1.73 PDF 2024-09-20 00:54:00 56.52 L/WK/B F L/WK PDF CC 2024-09-20 00:54:00 67.57 L/wk F KT/V PDF (M) 2024-09-20 00:54:00 1.51 Kt/V F BUN/CREAT 2024-09-20 00:54:00 8.7 Calc F 6.9-32.9 Creatinine [Mass/volume] in Serum or Plasma 2024-09-20 00:53:17 9.35 mg/dL F 0.7-1.3 Urea nitrogen [Mass/volume] in Serum or Plasma 2024-09-20 00:53:17 81 mg/dL F 9.0-23.0 BSA AMANDA 2024-09-19 22:51:21 2.07 sq m F TBW SAADIA MALE 2024-09-19 22:51:21 48.17 Liters F Urea nitrogen [Mass/volume] in Peritoneal fluid --24 hours post peritoneal dialysis 2024-09-19 22:50:21 71 mg/dL F Creatinine [Mass/volume] in Peritoneal dialysis fluid 2024-09-19 22:50:21 7.61 mg/dL F AMPUTATE FACTOR 2024-09-18 20:43:46 0 F HEIGHT IN INCHES 2024-09-18 20:43:46 68 Inches F PATIENT AGE 2024-09-18 20:43:46 43 Years F BODY WEIGHT (LBS) 2024-09-18 20:43:46 205.2 lbs F Total Volume of EFFL/DIAL 2024-09-18 20:43:46 86534 mLs F MINIMUM GOAL: KT/V PD 2024-09-18 20:43:46 1.7 F TOTAL VOLUME-24 HR URINE 2024-09-18 20:43:46 600 mL F COLLECTION TIME FOR URINE 2024-09-18 20:43:46 1440 min F BUN/CREAT 2024-08-18 05:29:13 8.5 Calc F 6.9-32.9 Creatinine [Mass/volume] in Serum or Plasma 2024-08-18 05:27:26 10.04 mg/dL F 0.7-1.3 Urea nitrogen [Mass/volume] in Serum or Plasma 2024-08-18 05:27:26 85 mg/dL F 9.0-23.0 BUN/CREAT 2024-07-20 00:12:00 7.8 Calc F 6.9-32.9 Urea nitrogen [Mass/volume] in Serum or Plasma 2024-07-20 00:11:22 70 mg/dL F 9.0-23.0 Creatinine [Mass/volume] in Serum or Plasma 2024-07-20 00:11:22 9.01 mg/dL F 0.7-1.3 KT/V TOTAL (M) 2024-06-21 00:14:25 1.71 Kt/V F L/WK RESID CC 2024-06-21 00:14:25 20.76 L/wk F PCR PD MALE 2024-06-21 00:14:25 98 g/day F L/WK/1.73 RESID 2024-06-21 00:14:25 17.07 L/WK/B F Urea Gen Rate 2024-06-21 00:14:25 19.2 GM/D F UREA CLR UR 2024-06-21 00:14:25 1.5 mL/min F NPCR PD MALE 2024-06-21 00:14:25 1.15 G/KG/D F L/WK/1.73 TOTAL 2024-06-21 00:14:25 66.57 L/WK/B F nPNA (PD MALE) 2024-06-21 00:14:25 1.31 G/KG/D F PNA (PD) 2024-06-21 00:14:25 111.7 g/day F KT/V RESID (M) 2024-06-21 00:14:25 0.3 Kt/V F UREA CLR UR/BSA 2024-06-21 00:14:25 1.2 mL/min F 64.0-99.0 CRE CLR UR/BSA 2024-06-21 00:14:25 2 mL/min F 85.0-125.0 CRE CLR UR 2024-06-21 00:14:25 3 mL/min F 97.0-137.0 Creatinine [Mass/volume] in Urine 2024-06-21 00:07:13 60.02 mg/dL F Urea nitrogen [Mass/volume] in Urine 2024-06-21 00:07:11 324 mg/dL F KT/V PDF (M) 2024-06-20 20:53:23 1.41 Kt/V F L/WK PDF CC 2024-06-20 20:53:23 60.22 L/wk F L/WK/1.73 PDF 2024-06-20 20:53:23 49.5 L/WK/B F BUN/CREAT 2024-06-20 20:53:23 9.7 Calc F 6.9-32.9 Creatinine [Mass/volume] in Serum or Plasma 2024-06-20 20:52:22 11.02 mg/dL F 0.7-1.3 Urea nitrogen [Mass/volume] in Serum or Plasma 2024-06-20 20:52:22 107 mg/dL F 9.0-23.0 BSA AMANDA 2024-06-20 16:39:25 2.1 sq m F TBW ZEE MALE 2024-06-20 16:39:25 49.48 Liters F Creatinine [Mass/volume] in Peritoneal dialysis fluid 2024-06-20 16:38:17 8.8 mg/dL F Urea nitrogen [Mass/volume] in Peritoneal fluid --24 hours post peritoneal dialysis 2024-06-20 16:38:17 99 mg/dL F PATIENT AGE 2024-06-19 21:03:33 43 Years F AMPUTATE FACTOR 2024-06-19 21:03:33 0 F Total Volume of EFFL/DIAL 2024-06-19 21:03:33 70559 mLs F MINIMUM GOAL: KT/V PD 2024-06-19 21:03:33 1.7 F HEIGHT IN INCHES 2024-06-19 21:03:33 68 Inches F BODY WEIGHT (LBS) 2024-06-19 21:03:33 213.8 lbs F COLLECTION TIME FOR URINE 2024-06-19 21:03:33 1440 min F TOTAL VOLUME-24 HR URINE 2024-06-19 21:03:33 700 mL F BUN/CREAT 2024-05-25 22:40:31 7.5 Calc F 6.9-32.9 Creatinine [Mass/volume] in Serum or Plasma 2024-05-25 22:39:22 12.49 mg/dL F 0.7-1.3 Urea nitrogen [Mass/volume] in Serum or Plasma 2024-05-25 22:39:22 94 mg/dL F 9.0-23.0 BUN/CREAT 2024-04-22 22:38:51 9.7 Calc F 6.9-32.9 Creatinine [Mass/volume] in Serum or Plasma 2024-04-22 22:38:20 11.07 mg/dL F 0.7-1.3 Urea nitrogen [Mass/volume] in Serum or Plasma 2024-04-22 22:38:20 107 mg/dL F 9.0-23.0 PNA (PD) 2024-03-17 12:54:10 107.3 g/day K Urea Gen Rate 2024-03-17 12:54:10 18.3 GM/D K nPNA (PD MALE) 2024-03-17 12:54:10 1.21 G/KG/D K PCR PD MALE 2024-03-17 12:54:10 95 g/day K NPCR PD MALE 2024-03-17 12:54:10 1.08 G/KG/D K UREA CLR UR 2024-03-17 12:54:10 3.5 mL/min K KT/V TOTAL (M) 2024-03-17 12:54:10 1.73 Kt/V K L/WK/1.73 TOTAL 2024-03-17 12:54:10 67.77 L/WK/B K L/WK/1.73 RESID 2024-03-17 12:54:10 40.29 L/WK/B K KT/V RESID (M) 2024-03-17 12:54:10 0.69 Kt/V K L/WK RESID CC 2024-03-17 12:54:10 50.18 L/wk K UREA CLR UR/BSA 2024-03-17 12:54:10 2.8 mL/min K 64.0-99.0 TOTAL VOLUME-24 HR URINE 2024-03-17 12:53:49 1300 mL F L/WK PDF CC 2024-03-16 02:50:33 34.24 L/wk F L/WK/1.73 PDF 2024-03-16 02:50:33 27.49 L/WK/B F KT/V PDF (M) 2024-03-16 02:50:33 1.04 Kt/V F Urea nitrogen [Mass/volume] in Peritoneal fluid --24 hours post peritoneal dialysis 2024-03-16 02:49:34 66 mg/dL F Creatinine [Mass/volume] in Peritoneal dialysis fluid 2024-03-16 02:49:34 4.68 mg/dL F CRE CLR UR 2024-03-15 23:22:07 6 mL/min F 97.0-137.0 CRE CLR UR/BSA 2024-03-15 23:22:07 5 mL/min F 85.0-125.0 Urea nitrogen [Mass/volume] in Urine 2024-03-15 23:21:27 379 mg/dL F Creatinine [Mass/volume] in Urine 2024-03-15 23:21:27 76.55 mg/dL F TBW ZEE MALE 2024-03-15 15:28:46 51.35 Liters F BSA AMANDA 2024-03-15 15:28:46 2.15 sq m F BUN/CREAT 2024-03-15 15:28:46 9 Calc F 6.9-32.9 Creatinine [Mass/volume] in Serum or Plasma 2024-03-15 15:28:30 10.75 mg/dL F 0.7-1.3 Urea nitrogen [Mass/volume] in Serum or Plasma 2024-03-15 15:28:30 97 mg/dL F 9.0-23.0 MINIMUM GOAL: KT/V PD 2024-03-14 20:00:17 1.7 F Total Volume of EFFL/DIAL 2024-03-14 20:00:17 03677 mLs F AMPUTATE FACTOR 2024-03-14 20:00:17 0 F HEIGHT IN INCHES 2024-03-14 20:00:17 68 Inches F BODY WEIGHT (LBS) 2024-03-14 20:00:17 226 lbs F PATIENT AGE 2024-03-14 20:00:17 43 Years F COLLECTION TIME FOR URINE 2024-03-14 20:00:17 1440 min F BUN/CREAT 2024-02-23 15:28:58 8.6 Calc F 6.9-32.9 Creatinine [Mass/volume] in Serum or Plasma 2024-02-23 15:28:33 11.6 mg/dL F 0.7-1.3 Urea nitrogen [Mass/volume] in Serum or Plasma 2024-02-23 15:28:33 100 mg/dL F 9.0-23.0 BUN/CREAT 2024-01-16 04:36:07 11.5 Calc F 6.9-32.9 Creatinine [Mass/volume] in Serum or Plasma 2024-01-15 17:25:30 10.91 mg/dL F 0.7-1.3 Urea nitrogen [Mass/volume] in Serum or Plasma 2024-01-15 17:25:30 125 mg/dL F 9.0-23.0 L/WK/1.73 RESID 2023-12-11 20:31:33 36.58 L/WK/B F UREA CLR UR 2023-12-11 20:31:33 3.5 mL/min F KT/V TOTAL (M) 2023-12-11 20:31:33 1.78 Kt/V F L/WK/1.73 TOTAL 2023-12-11 20:31:33 63.7 L/WK/B F L/WK RESID CC 2023-12-11 20:31:33 45.48 L/wk F KT/V RESID (M) 2023-12-11 20:31:33 0.69 Kt/V F UREA CLR UR/BSA 2023-12-11 20:31:33 2.8 mL/min F 64.0-99.0 CRE CLR UR/BSA 2023-12-11 20:31:33 4 mL/min F 85.0-125.0 CRE CLR UR 2023-12-11 20:31:33 6 mL/min F 97.0-137.0 NPCR PD MALE 2023-12-11 20:31:33 0.88 G/KG/D F PCR PD MALE 2023-12-11 20:31:33 78 g/day F Urea Gen Rate 2023-12-11 20:31:33 14.3 GM/D F PNA (PD) 2023-12-11 20:31:33 87.4 g/day F nPNA (PD MALE) 2023-12-11 20:31:33 0.99 G/KG/D F Creatinine [Mass/volume] in Urine 2023-12-11 20:30:35 50.89 mg/dL F Urea nitrogen [Mass/volume] in Urine 2023-12-11 20:30:35 311 mg/dL F L/WK/1.73 PDF 2023-12-11 19:38:04 27.12 L/WK/B F KT/V PDF (M) 2023-12-11 19:38:04 1.09 Kt/V F L/WK PDF CC 2023-12-11 19:38:04 33.71 L/wk F BUN/CREAT 2023-12-11 19:38:04 9.6 Calc F 6.9-32.9 Creatinine [Mass/volume] in Serum or Plasma 2023-12-11 19:37:29 7.68 mg/dL F 0.7-1.3 Urea nitrogen [Mass/volume] in Serum or Plasma 2023-12-11 19:37:29 74 mg/dL F 9.0-23.0 TBW ZEE MALE 2023-12-11 18:38:14 51.19 Liters F BSA AMANDA 2023-12-11 18:38:14 2.15 sq m F Urea nitrogen [Mass/volume] in Peritoneal fluid --24 hours post peritoneal dialysis 2023-12-11 18:37:34 53 mg/dL F Creatinine [Mass/volume] in Peritoneal dialysis fluid 2023-12-11 18:37:34 3.31 mg/dL F AMPUTATE FACTOR 2023-12-10 19:51:30 0 F HEIGHT IN INCHES 2023-12-10 19:51:30 68 Inches F PATIENT AGE 2023-12-10 19:51:30 43 Years F BODY WEIGHT (LBS) 2023-12-10 19:51:30 225 lbs F Total Volume of EFFL/DIAL 2023-12-10 19:51:30 57380 mLs F MINIMUM GOAL: KT/V PD 2023-12-10 19:51:30 1.7 F COLLECTION TIME FOR URINE 2023-12-10 19:51:30 1440 min F TOTAL VOLUME-24 HR URINE 2023-12-10 19:51:30 1200 mL F BUN/CREAT 2023-11-16 23:43:40 8.1 Calc F 6.9-32.9 Creatinine [Mass/volume] in Serum or Plasma 2023-11-16 23:39:35 7.29 mg/dL F 0.7-1.3 Urea nitrogen [Mass/volume] in Serum or Plasma 2023-11-16 23:39:35 59 mg/dL F 9.0-23.0 BUN/CREAT 2023-10-16 23:57:44 8.6 Calc F 6.9-32.9 Creatinine [Mass/volume] in Serum or Plasma 2023-10-16 23:56:58 6.51 mg/dL F 0.7-1.3 Urea nitrogen [Mass/volume] in Serum or Plasma 2023-10-16 23:56:51 56 mg/dL F 9.0-23.0 L/WK PDF CC 2023-09-12 03:51:19 32.93 L/wk F KT/V TOTAL (M) 2023-09-12 03:51:19 2.14 Kt/V F L/WK/1.73 TOTAL 2023-09-12 03:51:19 91.25 L/WK/B F KT/V PDF (M) 2023-09-12 03:51:19 1.04 Kt/V F L/WK/1.73 PDF 2023-09-12 03:51:19 26.44 L/WK/B F nPNA (PD MALE) 2023-09-12 03:51:19 0.98 G/KG/D F PNA (PD) 2023-09-12 03:51:19 87 g/day F NPCR PD MALE 2023-09-12 03:51:19 0.87 G/KG/D F PCR PD MALE 2023-09-12 03:51:19 77 g/day F Urea Gen Rate 2023-09-12 03:51:19 14.3 GM/D F Creatinine [Mass/volume] in Peritoneal dialysis fluid 2023-09-12 03:51:09 3.07 mg/dL F Urea nitrogen [Mass/volume] in Peritoneal fluid --24 hours post peritoneal dialysis 2023-09-12 03:51:09 41 mg/dL F L/WK/1.73 RESID 2023-09-12 00:12:27 64.82 L/WK/B F KT/V RESID (M) 2023-09-12 00:12:27 1.1 Kt/V F UREA CLR UR 2023-09-12 00:12:27 5.6 mL/min F L/WK RESID CC 2023-09-12 00:12:27 80.73 L/wk F UREA CLR UR/BSA 2023-09-12 00:12:27 4.5 mL/min F 64.0-99.0 CRE CLR UR/BSA 2023-09-12 00:12:27 8 mL/min F 85.0-125.0 CRE CLR UR 2023-09-12 00:12:27 10 mL/min F 97.0-137.0 Urea nitrogen [Mass/volume] in Urine 2023-09-12 00:12:19 380 mg/dL F Creatinine [Mass/volume] in Urine 2023-09-12 00:12:19 85.43 mg/dL F TBW SAADIA MALE 2023-09-11 21:15:54 51.44 Liters F BSA AMANDA 2023-09-11 21:15:54 2.15 sq m F BUN/CREAT 2023-09-11 21:15:54 8.2 Calc F 6.9-32.9 Urea nitrogen [Mass/volume] in Serum or Plasma 2023-09-11 21:15:47 61 mg/dL F 9.0-23.0 Creatinine [Mass/volume] in Serum or Plasma 2023-09-11 21:15:46 7.42 mg/dL F 0.7-1.3 HEIGHT IN INCHES 2023-09-10 21:37:48 68 Inches F BODY WEIGHT (LBS) 2023-09-10 21:37:48 226 lbs F PATIENT AGE 2023-09-10 21:37:48 42 Years F AMPUTATE FACTOR 2023-09-10 21:37:48 0 F Total Volume of EFFL/DIAL 2023-09-10 21:37:48 98168 mLs F MINIMUM GOAL: KT/V PD 2023-09-10 21:37:48 1.7 F TOTAL VOLUME-24 HR URINE 2023-09-10 21:37:48 1300 mL F COLLECTION TIME FOR URINE 2023-09-10 21:37:48 1440 min F BUN/CREAT 2023-08-19 06:32:20 9 Calc F 6.9-32.9 Creatinine [Mass/volume] in Serum or Plasma 2023-08-19 06:32:05 7.02 mg/dL F 0.7-1.3 Urea nitrogen [Mass/volume] in Serum or Plasma 2023-08-19 06:32:05 63 mg/dL F 9.0-23.0 BUN/CREAT 2023-07-16 20:33:47 8.2 Calc F 6.9-32.9 Creatinine [Mass/volume] in Serum or Plasma 2023-07-16 20:33:34 6.33 mg/dL F 0.7-1.3 Urea nitrogen [Mass/volume] in Serum or Plasma 2023-07-16 20:33:34 52 mg/dL F 9.0-23.0 L/WK/1.73 RESID 2023-06-12 19:45:02 86.59 L/WK/B F KT/V RESID (M) 2023-06-12 19:45:02 1.51 Kt/V F UREA CLR UR 2023-06-12 19:45:02 7.7 mL/min F L/WK/1.73 TOTAL 2023-06-12 19:45:02 110.56 L/WK/B F L/WK RESID CC 2023-06-12 19:45:02 107.65 L/wk F KT/V TOTAL (M) 2023-06-12 19:45:02 2.44 Kt/V F UREA CLR UR/BSA 2023-06-12 19:45:02 6.2 mL/min F 64.0-99.0 CRE CLR UR/BSA 2023-06-12 19:45:02 11 mL/min F 85.0-125.0 CRE CLR UR 2023-06-12 19:45:02 14 mL/min F 97.0-137.0 NPCR PD MALE 2023-06-12 19:45:02 0.74 G/KG/D F Urea Gen Rate 2023-06-12 19:45:02 11.4 GM/D F PCR PD MALE 2023-06-12 19:45:02 65 g/day F nPNA (PD MALE) 2023-06-12 19:45:02 0.82 G/KG/D F PNA (PD) 2023-06-12 19:45:02 72.8 g/day F Urea nitrogen [Mass/volume] in Urine 2023-06-12 19:44:40 396 mg/dL F Creatinine [Mass/volume] in Urine 2023-06-12 19:44:40 107.4 mg/dL F L/WK/1.73 PDF 2023-06-12 19:01:05 23.97 L/WK/B F L/WK PDF CC 2023-06-12 19:01:05 29.8 L/wk F KT/V PDF (M) 2023-06-12 19:01:05 0.93 Kt/V F Urea nitrogen [Mass/volume] in Peritoneal fluid --24 hours post peritoneal dialysis 2023-06-12 19:00:27 26 mg/dL F Creatinine [Mass/volume] in Peritoneal dialysis fluid 2023-06-12 19:00:27 2.46 mg/dL F TBW ZEE MALE 2023-06-12 16:11:15 51.29 Liters F BSA AMANDA 2023-06-12 16:11:15 2.15 sq m F BUN/CREAT 2023-06-12 16:11:15 6.6 Calc F 6.9-32.9 Creatinine [Mass/volume] in Serum or Plasma 2023-06-12 16:10:37 6.54 mg/dL F 0.7-1.3 Urea nitrogen [Mass/volume] in Serum or Plasma 2023-06-12 16:10:37 43 mg/dL F 9.0-23.0 HEIGHT IN INCHES 2023-06-11 19:40:27 68 Inches F PATIENT AGE 2023-06-11 19:40:27 42 Years F BODY WEIGHT (LBS) 2023-06-11 19:40:27 225 lbs F AMPUTATE FACTOR 2023-06-11 19:40:27 0 F Total Volume of EFFL/DIAL 2023-06-11 19:40:27 06891 mLs F MINIMUM GOAL: KT/V PD 2023-06-11 19:40:27 1.7 F TOTAL VOLUME-24 HR URINE 2023-06-11 19:40:27 1200 mL F COLLECTION TIME FOR URINE 2023-06-11 19:40:27 1440 min F BUN/CREAT 2023-04-23 04:07:02 7.6 Calc F 6.9-32.9 Creatinine [Mass/volume] in Serum or Plasma 2023-04-23 04:06:32 6.86 mg/dL F 0.7-1.3 Urea nitrogen [Mass/volume] in Serum or Plasma 2023-04-23 04:06:32 52 mg/dL F 9.0-23.0 PCR PD MALE 2023-03-17 00:43:28 60 g/day F NPCR PD MALE 2023-03-17 00:43:28 0.67 G/KG/D F Urea Gen Rate 2023-03-17 00:43:28 10.3 GM/D F nPNA (PD MALE) 2023-03-17 00:43:28 0.75 G/KG/D F L/WK PDF CC 2023-03-17 00:43:28 31.72 L/wk F KT/V TOTAL (M) 2023-03-17 00:43:28 1.54 Kt/V F L/WK/1.73 PDF 2023-03-17 00:43:28 25.33 L/WK/B F L/WK/1.73 TOTAL 2023-03-17 00:43:28 68.66 L/WK/B F PNA (PD) 2023-03-17 00:43:28 67.2 g/day F KT/V PDF (M) 2023-03-17 00:43:28 0.96 Kt/V F Urea nitrogen [Mass/volume] in Peritoneal fluid --24 hours post peritoneal dialysis 2023-03-17 00:42:36 40 mg/dL F Creatinine [Mass/volume] in Peritoneal dialysis fluid 2023-03-17 00:42:36 3.18 mg/dL F KT/V RESID (M) 2023-03-16 18:56:18 0.58 Kt/V F L/WK/1.73 RESID 2023-03-16 18:56:18 43.33 L/WK/B F UREA CLR UR 2023-03-16 18:56:18 3 mL/min F L/WK RESID CC 2023-03-16 18:56:18 54.25 L/wk F UREA CLR UR/BSA 2023-03-16 18:56:18 2.4 mL/min F 64.0-99.0 CRE CLR UR/BSA 2023-03-16 18:56:18 6 mL/min F 85.0-125.0 CRE CLR UR 2023-03-16 18:56:18 8 mL/min F 97.0-137.0 Urea nitrogen [Mass/volume] in Urine 2023-03-16 18:55:37 372 mg/dL F Creatinine [Mass/volume] in Urine 2023-03-16 18:55:37 122.11 mg/dL F BSA AMANDA 2023-03-16 16:48:35 2.17 sq m F TBW SAADIA MALE 2023-03-16 16:48:35 51.87 Liters F BUN/CREAT 2023-03-16 16:48:35 8 Calc F 6.9-32.9 Creatinine [Mass/volume] in Serum or Plasma 2023-03-16 16:47:36 7.61 mg/dL F 0.7-1.3 Urea nitrogen [Mass/volume] in Serum or Plasma 2023-03-16 16:47:36 61 mg/dL F 9.0-23.0 BODY WEIGHT (LBS) 2023-03-15 19:45:06 228.8 lbs F PATIENT AGE 2023-03-15 19:45:06 42 Years F MINIMUM GOAL: KT/V PD 2023-03-15 19:45:06 1.7 F HEIGHT IN INCHES 2023-03-15 19:45:06 68 Inches F Total Volume of EFFL/DIAL 2023-03-15 19:45:06 87654 mLs F AMPUTATE FACTOR 2023-03-15 19:45:06 0 F TOTAL VOLUME-24 HR URINE 2023-03-15 19:45:06 700 mL F COLLECTION TIME FOR URINE 2023-03-15 19:45:06 1440 min F BUN/CREAT 2023-02-20 15:24:10 8.6 Calc F 6.9-32.9 Creatinine [Mass/volume] in Serum or Plasma 2023-02-20 15:23:16 6.3 mg/dL F 0.7-1.3 Urea nitrogen [Mass/volume] in Serum or Plasma 2023-02-20 15:23:16 54 mg/dL F 9.0-23.0 BUN/CREAT 2023-01-14 23:49:01 9 Calc F 6.9-32.9 Creatinine [Mass/volume] in Serum or Plasma 2023-01-14 23:48:14 6.31 mg/dL F 0.7-1.3 Urea nitrogen [Mass/volume] in Serum or Plasma 2023-01-14 23:48:14 57 mg/dL F 9.0-23.0 KT/V TOTAL (M) 2022-12-12 02:03:30 2.48 Kt/V F L/WK/1.73 RESID 2022-12-12 02:03:30 81.65 L/WK/B F KT/V RESID (M) 2022-12-12 02:03:30 1.41 Kt/V F L/WK PDF CC 2022-12-12 02:03:30 33.76 L/wk F L/WK/1.73 PDF 2022-12-12 02:03:30 27.24 L/WK/B F L/WK/1.73 TOTAL 2022-12-12 02:03:30 108.88 L/WK/B F KT/V PDF (M) 2022-12-12 02:03:30 1.08 Kt/V F L/WK RESID CC 2022-12-12 02:03:30 101.22 L/wk F UREA CLR UR 2022-12-12 02:03:30 7.1 mL/min F UREA CLR UR/BSA 2022-12-12 02:03:30 5.7 mL/min F 64.0-99.0 BUN/CREAT 2022-12-12 02:03:30 7.5 Calc F 6.9-32.9 CRE CLR UR/BSA 2022-12-12 02:03:30 10 mL/min F 85.0-125.0 CRE CLR UR 2022-12-12 02:03:30 13 mL/min F 97.0-137.0 Creatinine [Mass/volume] in Serum or Plasma 2022-12-12 02:02:27 5.72 mg/dL F 0.7-1.3 Urea nitrogen [Mass/volume] in Serum or Plasma 2022-12-12 02:02:27 43 mg/dL F 9.0-23.0 nPNA (PD MALE) 2022-12-11 21:38:33 0.83 G/KG/D F Urea Gen Rate 2022-12-11 21:38:33 11.6 GM/D F PNA (PD) 2022-12-11 21:38:33 73.5 g/day F PCR PD MALE 2022-12-11 21:38:33 66 g/day F NPCR PD MALE 2022-12-11 21:38:33 0.74 G/KG/D F Creatinine [Mass/volume] in Urine 2022-12-11 21:38:11 82.15 mg/dL F Urea nitrogen [Mass/volume] in Urine 2022-12-11 21:38:11 339 mg/dL F BSA AMANDA 2022-12-11 21:26:45 2.14 sq m F TBW ZEE MALE 2022-12-11 21:26:45 51.06 Liters F Urea nitrogen [Mass/volume] in Peritoneal fluid --24 hours post peritoneal dialysis 2022-12-11 21:26:27 29 mg/dL F Creatinine [Mass/volume] in Peritoneal dialysis fluid 2022-12-11 21:26:27 2.37 mg/dL F Total Volume of EFFL/DIAL 2022-12-10 19:32:04 61288 mLs F PATIENT AGE 2022-12-10 19:32:04 42 Years F AMPUTATE FACTOR 2022-12-10 19:32:04 0 F BODY WEIGHT (LBS) 2022-12-10 19:32:04 223.5 lbs F MINIMUM GOAL: KT/V PD 2022-12-10 19:32:04 1.7 F HEIGHT IN INCHES 2022-12-10 19:32:04 68 Inches F TOTAL VOLUME-24 HR URINE 2022-12-10 19:32:04 1300 mL F COLLECTION TIME FOR URINE 2022-12-10 19:32:04 1440 min F Urea 2 Hr D/P 2022-11-15 03:17:26 0.58 F 2 HR D/P 2022-11-15 03:17:26 0.32 F Urea 4 hr D/P 2022-11-15 03:17:26 0.9 F 4 HR D/P 2022-11-15 03:17:26 0.52 F 0 HR D/P 2022-11-15 03:17:26 0.03 F BUN PET 2/4 HR SERUM 2022-11-15 03:16:14 52 mg/dL F CREATININE PET 2/4 HR SERUM 2022-11-15 03:16:14 6.48 mg/dL F 0.7-1.3 GLUCOSE PET 2/4 HR SERUM 2022-11-15 03:16:14 236 mg/dL F 70.0-99.0 2 HR D/DO 2022-11-15 03:06:32 0.68 F CREAT-MATTHIAS 2HR 2022-11-15 03:06:32 2.1 mg/dL F Glucose [Mass/volume] in Peritoneal dialysis fluid --2 hour dwell specimen 2022-11-15 03:06:11 1453 mg/dL F UREA PERITONEAL 2 HOUR 2022-11-15 03:06:11 30 mg/dL F Creatinine [Mass/volume] in Peritoneal dialysis fluid --2 hour dwell specimen 2022-11-15 03:06:11 2.37 mg/dL F CREAT-MATTHIAS 4HR 2022-11-15 01:58:53 3.4 mg/dL F 4 HR D/DO 2022-11-15 01:58:53 0.44 F Glucose [Mass/volume] in Peritoneal dialysis fluid --4 hour dwell specimen 2022-11-15 01:58:09 946 mg/dL F UREA PERITONEAL 4 HOUR 2022-11-15 01:58:09 47 mg/dL F Creatinine [Mass/volume] in Peritoneal dialysis fluid --4 hour dwell specimen 2022-11-15 01:58:09 3.6 mg/dL F BUN/CREAT 2022-11-15 01:51:05 8.1 Calc F 6.9-32.9 Creatinine [Mass/volume] in Serum or Plasma 2022-11-15 01:50:18 6.57 mg/dL F 0.7-1.3 Urea nitrogen [Mass/volume] in Serum or Plasma 2022-11-15 01:50:18 53 mg/dL F 9.0-23.0 CREAT-MATTHIAS 0HR 2022-11-14 23:59:20 0.2 mg/dL F Urea 0 Hr D/P 2022-11-14 23:59:20 see comments F Unable to Calculate. UREA PERITONEAL 0 HOUR 2022-11-14 23:59:12 2 mg/dL F Creatinine [Mass/volume] in Peritoneal dialysis fluid --baseline 2022-11-14 23:59:12 0.66 mg/dL F Glucose [Mass/volume] in Peritoneal dialysis fluid --baseline 2022-11-14 23:59:12 2130 mg/dL F DRAINAGE VOLUME AT 4 HOURS 2022-11-13 20:57:42 2300 mLs F BODY WEIGHT (LBS) 2022-11-13 20:57:42 213.4 lbs F HEIGHT IN INCHES 2022-11-13 20:57:42 68 Inches F BUN/CREAT 2022-10-15 18:56:59 8.4 Calc F 6.9-32.9 Creatinine [Mass/volume] in Serum or Plasma 2022-10-15 18:56:41 6.18 mg/dL F 0.7-1.3 Urea nitrogen [Mass/volume] in Serum or Plasma 2022-10-15 18:56:41 52 mg/dL F 9.0-23.0 UREA CLR UR 2022-09-23 18:42:37 3.7 mL/min F KT/V TOTAL (M) 2022-09-23 18:42:37 1.72 Kt/V F KT/V RESID (M) 2022-09-23 18:42:37 0.76 Kt/V F L/WK RESID CC 2022-09-23 18:42:37 54.79 L/wk F L/WK/1.73 RESID 2022-09-23 18:42:37 45.37 L/WK/B F L/WK/1.73 TOTAL 2022-09-23 18:42:37 62.24 L/WK/B F UREA CLR UR/BSA 2022-09-23 18:42:37 3.1 mL/min F 64.0-99.0 CRE CLR UR/BSA 2022-09-23 18:42:37 6 mL/min F 85.0-125.0 CRE CLR UR 2022-09-23 18:42:37 7 mL/min F 97.0-137.0 Urea Gen Rate 2022-09-23 18:42:37 11.3 GM/D F nPNA (PD MALE) 2022-09-23 18:42:37 0.85 G/KG/D F PCR PD MALE 2022-09-23 18:42:37 64 g/day F NPCR PD MALE 2022-09-23 18:42:37 0.75 G/KG/D F PNA (PD) 2022-09-23 18:42:37 72.3 g/day F Creatinine [Mass/volume] in Urine 2022-09-23 18:41:51 92.07 mg/dL F Urea nitrogen [Mass/volume] in Urine 2022-09-23 18:41:51 418 mg/dL F L/WK PDF CC 2022-09-23 17:53:36 20.37 L/wk F L/WK/1.73 PDF 2022-09-23 17:53:36 16.87 L/WK/B F KT/V PDF (M) 2022-09-23 17:53:36 0.97 Kt/V F Creatinine [Mass/volume] in Peritoneal dialysis fluid 2022-09-23 17:53:27 1.84 mg/dL F Urea nitrogen [Mass/volume] in Peritoneal fluid --24 hours post peritoneal dialysis 2022-09-23 17:53:27 38 mg/dL F TBW ZEE MALE 2022-09-23 17:09:03 49.11 Liters F BSA AMANDA 2022-09-23 17:09:03 2.09 sq m F BUN/CREAT 2022-09-23 17:09:03 8.8 Calc F 6.9-32.9 Creatinine [Mass/volume] in Serum or Plasma 2022-09-23 17:08:48 7.12 mg/dL F 0.7-1.3 Urea nitrogen [Mass/volume] in Serum or Plasma 2022-09-23 17:08:48 63 mg/dL F 9.0-23.0 TOTAL VOLUME-24 HR URINE 2022-09-22 20:30:59 800 mL F COLLECTION TIME FOR URINE 2022-09-22 20:30:59 1440 min F HEIGHT IN INCHES 2022-09-22 20:30:59 68 Inches F AMPUTATE FACTOR 2022-09-22 20:30:59 0 F PATIENT AGE 2022-09-22 20:30:59 41 Years F BODY WEIGHT (LBS) 2022-09-22 20:30:59 210.1 lbs F MINIMUM GOAL: KT/V PD 2022-09-22 20:30:59 1.7 F Total Volume of EFFL/DIAL 2022-09-22 20:30:59 12459 mLs F WEIGHT - POST DAY 1 2022-09-08 15:56:55 93.5 kg F stdKt/V (DIAL) 2022-09-08 15:56:55 N/A F Dialyzer JAE 2022-09-08 15:56:55 1218 Calc F stdKT/V Total 2022-09-08 15:56:55 N/A F PRESCRIBED DAYS/WEEK 2022-09-08 15:56:55 3 Day/Wk F PATIENT AGE 2022-09-08 15:56:55 41 Years F TOTAL HOURS/WEEK DIALYSIS 2022-09-08 15:56:55 6 F Total Kt/V 2022-09-08 15:56:55 1.08 F nPCR 2022-09-08 15:56:55 0.76 G/KG/D F WEIGHT (KG) 2022-09-08 15:56:55 93.5 kg F WEIGHT - PRE DAY 1 2022-09-08 15:56:55 94.8 kg F LENGTH OF DIALYSIS 2022-09-08 15:56:55 183 min F DIALYZER FLOW-QD 2022-09-08 15:56:55 478 mL/min F URR% 2022-09-08 15:56:55 63 % F spKt/V 2022-09-08 15:56:55 1.08 F KT/V PRESCRIBED 2022-09-08 15:56:55 1.22 F BLOOD FLOW-QWB 2022-09-08 15:56:55 363 F AMPUTATE FACTOR 2022-09-08 15:56:55 0 F eKt/V 2022-09-08 15:56:55 0.91 F CURRENT KRU 2022-09-08 15:56:55 F BSA AMANDA 2022-09-08 15:56:55 2.07 sq m F TBW (Zee) 2022-09-08 15:56:55 48.44 Liters F Std Renal KT/V 2022-09-08 15:56:55 N/A F HEIGHT IN INCHES 2022-09-08 15:56:55 68 Inches F VM (KT/V MEAN VOL) 2022-09-08 15:56:55 40.3 F Residual kt/v 2022-09-08 15:56:55 F VT (KT/V TX VOL) 2022-09-08 15:56:55 43 L F Urea nitrogen [Mass/volume] in Serum or Plasma --post dialysis 2022-09-08 15:54:41 25 mg/dL F 9.0-23.0 Creatinine [Mass/volume] in Serum or Plasma 2022-09-08 15:53:46 7.81 mg/dL F 0.7-1.3 Urea nitrogen [Mass/volume] in Serum or Plasma 2022-09-08 15:53:46 67 mg/dL F 9.0-23.0 HEIGHT IN INCHES 2022-09-07 21:34:47 68 Inches F BODY WEIGHT (LBS) 2022-09-07 21:34:47 205.7 lbs F BUN/CREAT 2022-09-02 16:47:36 6.6 Calc F 6.9-32.9 Creatinine [Mass/volume] in Serum or Plasma 2022-09-02 16:46:33 6.23 mg/dL F 0.7-1.3 Urea nitrogen [Mass/volume] in Serum or Plasma 2022-09-02 16:46:33 41 mg/dL F 9.0-23.0 LENGTH OF DIALYSIS 2022-07-30 21:24:04 181 min F URR% 2022-07-30 21:24:04 69 % F WEIGHT - PRE DAY 1 2022-07-30 21:24:04 95.9 kg F AMPUTATE FACTOR 2022-07-30 21:24:04 0 F Total Kt/V 2022-07-30 21:24:04 1.23 F WEIGHT (KG) 2022-07-30 21:24:04 99 kg F stdKT/V Total 2022-07-30 21:24:04 N/A F Dialyzer JAE 2022-07-30 21:24:04 1218 Calc F KT/V PRESCRIBED 2022-07-30 21:24:04 1.16 F PRESCRIBED DAYS/WEEK 2022-07-30 21:24:04 3 Day/Wk F PATIENT AGE 2022-07-30 21:24:04 41 Years F stdKt/V (DIAL) 2022-07-30 21:24:04 N/A F nPCR 2022-07-30 21:24:04 0.44 G/KG/D F WEIGHT - POST DAY 1 2022-07-30 21:24:04 94.9 kg F HEIGHT IN INCHES 2022-07-30 21:24:04 68 Inches F TOTAL HOURS/WEEK DIALYSIS 2022-07-30 21:24:04 3 F BLOOD FLOW-QWB 2022-07-30 21:24:04 400 F spKt/V 2022-07-30 21:24:04 1.23 F DIALYZER FLOW-QD 2022-07-30 21:24:04 500 mL/min F CURRENT KRU 2022-07-30 21:24:04 F Std Renal KT/V 2022-07-30 21:24:04 N/A F eKt/V 2022-07-30 21:24:04 1.03 F TBW (Zee) 2022-07-30 21:24:04 48.91 Liters F VT (KT/V TX VOL) 2022-07-30 21:24:04 39.4 L F VM (KT/V MEAN VOL) 2022-07-30 21:24:04 39.4 F BSA AMANDA 2022-07-30 21:24:04 2.12 sq m F Residual kt/v 2022-07-30 21:24:04 F BUN/CREAT 2022-07-30 21:22:14 9.6 Calc F 6.9-32.9 Creatinine [Mass/volume] in Serum or Plasma 2022-07-30 21:21:50 6.66 mg/dL F 0.7-1.3 Urea nitrogen [Mass/volume] in Serum or Plasma 2022-07-30 21:21:50 64 mg/dL F 9.0-23.0 Urea nitrogen [Mass/volume] in Serum or Plasma --post dialysis 2022-07-30 18:00:46 20 mg/dL F 9.0-23.0 HEIGHT IN INCHES 2022-07-29 20:49:15 68 Inches F BODY WEIGHT (LBS) 2022-07-29 20:49:15 208.8 lbs F CRE CLR UR/BSA CRE CLR UR/BSA KRU-UREA CLR UR Anemia Description Draw Date Result/Unit Status Ref Range Result Comments IRON SATURATION 2024-09-20 11:09:05 16 % F 21.0-49.0 TIBC 2024-09-20 11:09:05 191 ug/dL F 250.0-425.0 Ferritin [Mass/volume] in Serum or Plasma 2024-09-20 08:53:24 926 ng/mL F 22.0-322.0 Iron [Mass/volume] in Serum or Plasma 2024-09-20 07:55:31 30 ug/dL F 65.0-175.0 Iron binding capacity.unsaturated [Mass/volume] in Serum or Plasma 2024-09-20 07:55:29 161 ug/dL F 75.0-360.0 HCT CALC HGBX3 2024-09-20 02:10:05 30.3 % F 42.0-52.0 Reticulocytes/100 erythrocytes in Blood by Automated count 2024-09-20 02:09:18 3.6 % F 0.7-2.5 Erythrocyte distribution width [Ratio] by Automated count 2024-09-20 02:09:18 16 % F 11.0-15.0 Hemoglobin [Mass/volume] in Blood 2024-09-20 02:09:18 10.1 g/dL F 14.0-18.0 Platelets [#/volume] in Blood by Automated count 2024-09-20 02:09:18 408 x 10^3 cells/uL F 140.0-450.0 MCH [Entitic mass] by Automated count 2024-09-20 02:09:18 27.5 pg F 25.9-34.2 MCHC [Mass/volume] by Automated count 2024-09-20 02:09:18 31.3 g/dL F 29.6-35.3 Erythrocytes [#/volume] in Blood by Automated count 2024-09-20 02:09:18 3.66 x 10^6 cells/uL F 4.6-6.2 Hematocrit [Volume Fraction] of Blood by Automated count 2024-09-20 02:09:18 32.1 % F 41.0-53.0 MCV [Entitic volume] by Automated count 2024-09-20 02:09:18 87.7 fL F 80.0-100.0 Ferritin [Mass/volume] in Serum or Plasma 2024-08-19 08:03:02 814 ng/mL F 22.0-322.0 HCT CALC HGBX3 2024-08-18 15:06:09 29.1 % F 42.0-52.0 Hematocrit [Volume Fraction] of Blood by Automated count 2024-08-18 15:05:13 30.8 % F 41.0-53.0 Erythrocyte distribution width [Ratio] by Automated count 2024-08-18 15:05:12 15.8 % F 11.0-15.0 Hemoglobin [Mass/volume] in Blood 2024-08-18 15:05:12 9.7 g/dL F 14.0-18.0 Platelets [#/volume] in Blood by Automated count 2024-08-18 15:05:12 362 x 10^3 cells/uL F 140.0-450.0 MCH [Entitic mass] by Automated count 2024-08-18 15:05:12 27.7 pg F 25.9-34.2 MCHC [Mass/volume] by Automated count 2024-08-18 15:05:12 31.5 g/dL F 29.6-35.3 Erythrocytes [#/volume] in Blood by Automated count 2024-08-18 15:05:12 3.51 x 10^6 cells/uL F 4.6-6.2 MCV [Entitic volume] by Automated count 2024-08-18 15:05:12 87.8 fL F 80.0-100.0 Reticulocytes/100 erythrocytes in Blood by Automated count 2024-08-18 15:05:10 2.53 % F 0.7-2.5 IRON SATURATION 2024-08-18 09:55:58 19 % F 21.0-49.0 TIBC 2024-08-18 09:55:58 200 ug/dL F 250.0-425.0 Iron [Mass/volume] in Serum or Plasma 2024-08-18 08:22:16 37 ug/dL F 65.0-175.0 Iron binding capacity.unsaturated [Mass/volume] in Serum or Plasma 2024-08-18 08:22:16 163 ug/dL F 75.0-360.0 IRON SATURATION 2024-07-20 09:37:10 14 % F 21.0-49.0 TIBC 2024-07-20 09:37:10 201 ug/dL F 250.0-425.0 Iron [Mass/volume] in Serum or Plasma 2024-07-20 08:07:18 29 ug/dL F 65.0-175.0 Iron binding capacity.unsaturated [Mass/volume] in Serum or Plasma 2024-07-20 08:06:10 172 ug/dL F 75.0-360.0 Ferritin [Mass/volume] in Serum or Plasma 2024-07-20 07:36:21 982 ng/mL F 22.0-322.0 HCT CALC HGBX3 2024-07-19 19:25:29 30.9 % F 42.0-52.0 Erythrocytes [#/volume] in Blood by Automated count 2024-07-19 19:24:20 3.55 x 10'6 cells/uL F 4.6-6.2 MCV [Entitic volume] by Automated count 2024-07-19 19:24:20 90.8 fL F 80.0-100.0 Reticulocytes/100 erythrocytes in Blood by Automated count 2024-07-19 19:24:20 2.26 % F 0.7-2.5 Erythrocyte distribution width [Ratio] by Automated count 2024-07-19 19:24:20 16.3 % F 11.0-15.0 Platelets [#/volume] in Blood by Automated count 2024-07-19 19:24:20 436 x 10^3 cells/uL F 140.0-450.0 Hemoglobin [Mass/volume] in Blood 2024-07-19 19:24:20 10.3 g/dL F 14.0-18.0 MCH [Entitic mass] by Automated count 2024-07-19 19:24:20 29 pg F 25.9-34.2 MCHC [Mass/volume] by Automated count 2024-07-19 19:24:20 31.9 g/dL F 29.6-35.3 Hematocrit [Volume Fraction] of Blood by Automated count 2024-07-19 19:24:20 32.2 % F 41.0-53.0 IRON SATURATION 2024-06-21 08:36:15 16 % F 21.0-49.0 TIBC 2024-06-21 08:36:15 202 ug/dL F 250.0-425.0 Iron [Mass/volume] in Serum or Plasma 2024-06-21 08:24:54 32 ug/dL F 65.0-175.0 Iron binding capacity.unsaturated [Mass/volume] in Serum or Plasma 2024-06-21 08:24:54 170 ug/dL F 75.0-360.0 Ferritin [Mass/volume] in Serum or Plasma 2024-06-20 23:56:06 866 ng/mL F 22.0-322.0 HCT CALC HGBX3 2024-06-20 20:21:55 27.6 % F 42.0-52.0 Reticulocytes/100 erythrocytes in Blood by Automated count 2024-06-20 20:14:06 2.94 % F 0.7-2.5 Erythrocyte distribution width [Ratio] by Automated count 2024-06-20 20:14:06 14.6 % F 11.0-15.0 Hemoglobin [Mass/volume] in Blood 2024-06-20 20:14:06 9.2 g/dL F 14.0-18.0 Platelets [#/volume] in Blood by Automated count 2024-06-20 20:14:06 317 x 10^3 cells/uL F 140.0-450.0 MCH [Entitic mass] by Automated count 2024-06-20 20:14:06 28.5 pg F 25.9-34.2 MCHC [Mass/volume] by Automated count 2024-06-20 20:14:06 31.2 g/dL F 29.6-35.3 Erythrocytes [#/volume] in Blood by Automated count 2024-06-20 20:14:06 3.24 x 10'6 cells/uL F 4.6-6.2 Hematocrit [Volume Fraction] of Blood by Automated count 2024-06-20 20:14:06 29.6 % F 41.0-53.0 MCV [Entitic volume] by Automated count 2024-06-20 20:14:06 91.4 fL F 80.0-100.0 IRON SATURATION 2024-05-26 07:33:16 14 % F 21.0-49.0 TIBC 2024-05-26 07:33:16 221 ug/dL F 250.0-425.0 Ferritin [Mass/volume] in Serum or Plasma 2024-05-26 07:16:14 706 ng/mL F 22.0-322.0 Iron binding capacity.unsaturated [Mass/volume] in Serum or Plasma 2024-05-26 07:09:05 190 ug/dL F 75.0-360.0 Iron [Mass/volume] in Serum or Plasma 2024-05-26 06:30:08 31 ug/dL F 65.0-175.0 HCT CALC HGBX3 2024-05-26 03:21:34 31.8 % F 42.0-52.0 Reticulocytes/100 erythrocytes in Blood by Automated count 2024-05-26 03:21:15 3.04 % F 0.7-2.5 Erythrocyte distribution width [Ratio] by Automated count 2024-05-26 03:21:15 15.3 % F 11.0-15.0 Hemoglobin [Mass/volume] in Blood 2024-05-26 03:21:15 10.6 g/dL F 14.0-18.0 Platelets [#/volume] in Blood by Automated count 2024-05-26 03:21:15 293 x 10^3 cells/uL F 140.0-450.0 MCH [Entitic mass] by Automated count 2024-05-26 03:21:15 29.7 pg F 25.9-34.2 MCHC [Mass/volume] by Automated count 2024-05-26 03:21:15 31.3 g/dL F 29.6-35.3 Hematocrit [Volume Fraction] of Blood by Automated count 2024-05-26 03:21:15 33.8 % F 41.0-53.0 Erythrocytes [#/volume] in Blood by Automated count 2024-05-26 03:21:15 3.56 x 10'6 cells/uL F 4.6-6.2 MCV [Entitic volume] by Automated count 2024-05-26 03:21:15 94.9 fL F 80.0-100.0 IRON SATURATION 2024-04-23 06:31:04 15 % F 21.0-49.0 TIBC 2024-04-23 06:31:04 215 ug/dL F 250.0-425.0 Ferritin [Mass/volume] in Serum or Plasma 2024-04-23 06:25:57 919 ng/mL F 22.0-322.0 Iron [Mass/volume] in Serum or Plasma 2024-04-23 06:23:21 32 ug/dL F 65.0-175.0 Iron binding capacity.unsaturated [Mass/volume] in Serum or Plasma 2024-04-23 06:23:21 183 ug/dL F 75.0-360.0 HCT CALC HGBX3 2024-04-22 23:45:07 29.4 % F 42.0-52.0 Reticulocytes/100 erythrocytes in Blood by Automated count 2024-04-22 23:44:16 2.25 % F 0.7-2.5 Erythrocyte distribution width [Ratio] by Automated count 2024-04-22 23:44:16 14.7 % F 11.0-15.0 Hemoglobin [Mass/volume] in Blood 2024-04-22 23:44:16 9.8 g/dL F 14.0-18.0 Platelets [#/volume] in Blood by Automated count 2024-04-22 23:44:16 331 x 10^3 cells/uL F 140.0-450.0 MCH [Entitic mass] by Automated count 2024-04-22 23:44:16 28.6 pg F 25.9-34.2 MCHC [Mass/volume] by Automated count 2024-04-22 23:44:16 31.3 g/dL F 29.6-35.3 Hematocrit [Volume Fraction] of Blood by Automated count 2024-04-22 23:44:16 31.2 % F 41.0-53.0 Erythrocytes [#/volume] in Blood by Automated count 2024-04-22 23:44:16 3.41 x 10'6 cells/uL F 4.6-6.2 MCV [Entitic volume] by Automated count 2024-04-22 23:44:16 91.4 fL F 80.0-100.0 IRON SATURATION 2024-03-16 17:30:10 18 % F 21.0-49.0 TIBC 2024-03-16 17:30:10 203 ug/dL F 250.0-425.0 Ferritin [Mass/volume] in Serum or Plasma 2024-03-16 17:29:34 1144 ng/mL F 22.0-322.0 Iron [Mass/volume] in Serum or Plasma 2024-03-16 06:33:10 37 ug/dL F 65.0-175.0 Iron binding capacity.unsaturated [Mass/volume] in Serum or Plasma 2024-03-16 06:33:10 166 ug/dL F 75.0-360.0 HCT CALC HGBX3 2024-03-15 16:42:22 28.5 % F 42.0-52.0 Erythrocyte distribution width [Ratio] by Automated count 2024-03-15 16:41:32 14.8 % F 11.0-15.0 Hemoglobin [Mass/volume] in Blood 2024-03-15 16:41:32 9.5 g/dL F 14.0-18.0 MCHC [Mass/volume] by Automated count 2024-03-15 16:41:32 32 g/dL F 29.6-35.3 Hematocrit [Volume Fraction] of Blood by Automated count 2024-03-15 16:41:32 29.8 % F 41.0-53.0 MCV [Entitic volume] by Automated count 2024-03-15 16:41:32 90.6 fL F 80.0-100.0 Reticulocytes/100 erythrocytes in Blood by Automated count 2024-03-15 16:41:30 3.27 % F 0.7-2.5 Platelets [#/volume] in Blood by Automated count 2024-03-15 16:41:30 274 x 10^3 cells/uL F 140.0-450.0 MCH [Entitic mass] by Automated count 2024-03-15 16:41:30 29 pg F 25.9-34.2 Erythrocytes [#/volume] in Blood by Automated count 2024-03-15 16:41:30 3.28 x 10'6 cells/uL F 4.6-6.2 Ferritin [Mass/volume] in Serum or Plasma 2024-02-24 06:58:29 757 ng/mL F 22.0-322.0 HCT CALC HGBX3 2024-02-23 21:51:57 27.9 % F 42.0-52.0 Reticulocytes/100 erythrocytes in Blood by Automated count 2024-02-23 21:50:50 3.65 % F 0.7-2.5 Erythrocyte distribution width [Ratio] by Automated count 2024-02-23 21:50:50 15.9 % F 11.0-15.0 Hemoglobin [Mass/volume] in Blood 2024-02-23 21:50:50 9.3 g/dL F 14.0-18.0 Platelets [#/volume] in Blood by Automated count 2024-02-23 21:50:50 343 x 10^3 cells/uL F 140.0-450.0 MCH [Entitic mass] by Automated count 2024-02-23 21:50:50 28.9 pg F 25.9-34.2 MCHC [Mass/volume] by Automated count 2024-02-23 21:50:50 31.8 g/dL F 29.6-35.3 Erythrocytes [#/volume] in Blood by Automated count 2024-02-23 21:50:50 3.23 x 10'6 cells/uL F 4.6-6.2 Hematocrit [Volume Fraction] of Blood by Automated count 2024-02-23 21:50:50 29.3 % F 41.0-53.0 MCV [Entitic volume] by Automated count 2024-02-23 21:50:50 90.8 fL F 80.0-100.0 IRON SATURATION 2024-02-23 18:25:20 14 % F 21.0-49.0 TIBC 2024-02-23 18:25:20 228 ug/dL F 250.0-425.0 Iron [Mass/volume] in Serum or Plasma 2024-02-23 18:24:36 33 ug/dL F 65.0-175.0 Iron binding capacity.unsaturated [Mass/volume] in Serum or Plasma 2024-02-23 18:24:36 195 ug/dL F 75.0-360.0 IRON SATURATION 2024-01-16 04:36:07 47 % F 21.0-49.0 TIBC 2024-01-16 04:36:07 210 ug/dL F 250.0-425.0 HCT CALC HGBX3 2024-01-16 04:36:07 34.5 % F 42.0-52.0 Iron binding capacity.unsaturated [Mass/volume] in Serum or Plasma 2024-01-16 04:32:20 112 ug/dL F 75.0-360.0 Iron [Mass/volume] in Serum or Plasma 2024-01-16 04:32:20 98 ug/dL F 65.0-175.0 Ferritin [Mass/volume] in Serum or Plasma 2024-01-16 00:54:24 513 ng/mL F 22.0-322.0 Reticulocytes/100 erythrocytes in Blood by Automated count 2024-01-15 20:15:42 2.42 % F 0.7-2.5 Erythrocyte distribution width [Ratio] by Automated count 2024-01-15 20:15:42 16.2 % F 11.0-15.0 Platelets [#/volume] in Blood by Automated count 2024-01-15 20:15:42 273 x 10^3 cells/uL F 140.0-450.0 Hemoglobin [Mass/volume] in Blood 2024-01-15 20:15:42 11.5 g/dL F 14.0-18.0 MCH [Entitic mass] by Automated count 2024-01-15 20:15:42 28.3 pg F 25.9-34.2 MCHC [Mass/volume] by Automated count 2024-01-15 20:15:42 31.8 g/dL F 29.6-35.3 Erythrocytes [#/volume] in Blood by Automated count 2024-01-15 20:15:42 4.05 x 10'6 cells/uL F 4.6-6.2 Hematocrit [Volume Fraction] of Blood by Automated count 2024-01-15 20:15:42 36.1 % F 41.0-53.0 MCV [Entitic volume] by Automated count 2024-01-15 20:15:42 89 fL F 80.0-100.0 Ferritin [Mass/volume] in Serum or Plasma 2023-12-12 02:41:54 295 ng/mL F 22.0-322.0 IRON SATURATION 2023-12-12 02:38:55 16 % F 21.0-49.0 TIBC 2023-12-12 02:38:55 209 ug/dL F 250.0-425.0 Iron [Mass/volume] in Serum or Plasma 2023-12-12 02:36:07 34 ug/dL F 65.0-175.0 Iron binding capacity.unsaturated [Mass/volume] in Serum or Plasma 2023-12-12 02:36:07 175 ug/dL F 75.0-360.0 HCT CALC HGBX3 2023-12-11 19:29:36 36 % F 42.0-52.0 Reticulocytes/100 erythrocytes in Blood by Automated count 2023-12-11 19:29:32 1.97 % F 0.7-2.5 Erythrocyte distribution width [Ratio] by Automated count 2023-12-11 19:29:32 15.2 % F 11.0-15.0 Hemoglobin [Mass/volume] in Blood 2023-12-11 19:29:32 12 g/dL F 14.0-18.0 Platelets [#/volume] in Blood by Automated count 2023-12-11 19:29:32 237 x 10^3 cells/uL F 140.0-450.0 MCH [Entitic mass] by Automated count 2023-12-11 19:29:32 29.9 pg F 25.9-34.2 MCHC [Mass/volume] by Automated count 2023-12-11 19:29:32 33.7 g/dL F 29.6-35.3 Hematocrit [Volume Fraction] of Blood by Automated count 2023-12-11 19:29:32 35.7 % F 41.0-53.0 Erythrocytes [#/volume] in Blood by Automated count 2023-12-11 19:29:32 4.03 x 10'6 cells/uL F 4.6-6.2 MCV [Entitic volume] by Automated count 2023-12-11 19:29:32 88.7 fL F 80.0-100.0 IRON SATURATION 2023-11-17 07:36:24 16 % F 21.0-49.0 TIBC 2023-11-17 07:36:24 214 ug/dL F 250.0-425.0 Iron [Mass/volume] in Serum or Plasma 2023-11-17 07:32:49 35 ug/dL F 65.0-175.0 Iron binding capacity.unsaturated [Mass/volume] in Serum or Plasma 2023-11-17 07:32:36 179 ug/dL F 75.0-360.0 HCT CALC HGBX3 2023-11-17 07:18:00 36.6 % F 42.0-52.0 Reticulocytes/100 erythrocytes in Blood by Automated count 2023-11-17 07:11:38 2.17 % F 0.7-2.5 Erythrocyte distribution width [Ratio] by Automated count 2023-11-17 07:11:38 14.8 % F 11.0-15.0 Hemoglobin [Mass/volume] in Blood 2023-11-17 07:11:38 12.2 g/dL F 14.0-18.0 Platelets [#/volume] in Blood by Automated count 2023-11-17 07:11:38 319 x 10^3 cells/uL F 140.0-450.0 MCH [Entitic mass] by Automated count 2023-11-17 07:11:38 28.7 pg F 25.9-34.2 MCHC [Mass/volume] by Automated count 2023-11-17 07:11:38 31.1 g/dL F 29.6-35.3 Hematocrit [Volume Fraction] of Blood by Automated count 2023-11-17 07:11:38 39.3 % F 41.0-53.0 Erythrocytes [#/volume] in Blood by Automated count 2023-11-17 07:11:38 4.26 x 10'6 cells/uL F 4.6-6.2 MCV [Entitic volume] by Automated count 2023-11-17 07:11:38 92.2 fL F 80.0-100.0 Ferritin [Mass/volume] in Serum or Plasma 2023-11-17 07:08:35 263 ng/mL F 22.0-322.0 Ferritin [Mass/volume] in Serum or Plasma 2023-10-17 07:24:11 278 ng/mL F 22.0-322.0 IRON SATURATION 2023-10-17 07:01:35 24 % F 21.0-49.0 TIBC 2023-10-17 07:01:35 196 ug/dL F 250.0-425.0 Iron [Mass/volume] in Serum or Plasma 2023-10-17 06:57:19 48 ug/dL F 65.0-175.0 Iron binding capacity.unsaturated [Mass/volume] in Serum or Plasma 2023-10-17 06:57:19 148 ug/dL F 75.0-360.0 HCT CALC HGBX3 2023-10-16 22:53:26 39.9 % F 42.0-52.0 Erythrocyte distribution width [Ratio] by Automated count 2023-10-16 22:53:22 14.4 % F 11.0-15.0 Platelets [#/volume] in Blood by Automated count 2023-10-16 22:53:22 293 x 10^3 cells/uL F 140.0-450.0 MCHC [Mass/volume] by Automated count 2023-10-16 22:53:22 31.7 g/dL F 29.6-35.3 MCH [Entitic mass] by Automated count 2023-10-16 22:53:22 29.3 pg F 25.9-34.2 Hematocrit [Volume Fraction] of Blood by Automated count 2023-10-16 22:53:22 41.9 % F 41.0-53.0 Reticulocytes/100 erythrocytes in Blood by Automated count 2023-10-16 22:53:20 1.86 % F 0.7-2.5 Hemoglobin [Mass/volume] in Blood 2023-10-16 22:53:20 13.3 g/dL F 14.0-18.0 Erythrocytes [#/volume] in Blood by Automated count 2023-10-16 22:53:20 4.54 x 10'6 cells/uL F 4.6-6.2 MCV [Entitic volume] by Automated count 2023-10-16 22:53:20 92.4 fL F 80.0-100.0 IRON SATURATION 2023-09-12 07:46:12 23 % F 21.0-49.0 TIBC 2023-09-12 07:46:12 202 ug/dL F 250.0-425.0 Iron [Mass/volume] in Serum or Plasma 2023-09-12 07:44:05 46 ug/dL F 65.0-175.0 Iron binding capacity.unsaturated [Mass/volume] in Serum or Plasma 2023-09-12 07:44:05 156 ug/dL F 75.0-360.0 Ferritin [Mass/volume] in Serum or Plasma 2023-09-12 01:54:25 346 ng/mL F 22.0-322.0 HCT CALC HGBX3 2023-09-11 22:57:49 39.6 % F 42.0-52.0 Hemoglobin [Mass/volume] in Blood 2023-09-11 22:57:43 13.2 g/dL F 14.0-18.0 MCH [Entitic mass] by Automated count 2023-09-11 22:57:43 30.8 pg F 25.9-34.2 MCHC [Mass/volume] by Automated count 2023-09-11 22:57:43 32.5 g/dL F 29.6-35.3 Erythrocytes [#/volume] in Blood by Automated count 2023-09-11 22:57:43 4.28 x 10'6 cells/uL F 4.6-6.2 Hematocrit [Volume Fraction] of Blood by Automated count 2023-09-11 22:57:43 40.5 % F 41.0-53.0 MCV [Entitic volume] by Automated count 2023-09-11 22:57:41 94.6 fL F 80.0-100.0 Erythrocyte distribution width [Ratio] by Automated count 2023-09-11 22:57:39 15.3 % F 11.0-15.0 Platelets [#/volume] in Blood by Automated count 2023-09-11 22:57:39 236 x 10^3 cells/uL F 140.0-450.0 Reticulocytes/100 erythrocytes in Blood by Automated count 2023-09-11 22:57:37 1.91 % F 0.7-2.5 HCT CALC HGBX3 2023-08-20 13:30:11 37.8 % F 42.0-52.0 Reticulocytes/100 erythrocytes in Blood by Automated count 2023-08-20 13:30:06 F RECOLLECT - OUTDATED SPECIMEN Erythrocyte distribution width [Ratio] by Automated count 2023-08-20 13:29:35 15 % F 11.0-15.0 Platelets [#/volume] in Blood by Automated count 2023-08-20 13:29:35 203 x 10^3 cells/uL F 140.0-450.0 Hemoglobin [Mass/volume] in Blood 2023-08-20 13:29:35 12.6 g/dL F 14.0-18.0 MCH [Entitic mass] by Automated count 2023-08-20 13:29:35 31.1 pg F 25.9-34.2 MCHC [Mass/volume] by Automated count 2023-08-20 13:29:35 30.6 g/dL F 29.6-35.3 Erythrocytes [#/volume] in Blood by Automated count 2023-08-20 13:29:35 4.05 x 10'6 cells/uL F 4.6-6.2 Hematocrit [Volume Fraction] of Blood by Automated count 2023-08-20 13:29:35 41.2 % F 41.0-53.0 MCV [Entitic volume] by Automated count 2023-08-20 13:29:35 101.6 fL F 80.0-100.0 Ferritin [Mass/volume] in Serum or Plasma 2023-08-19 20:15:10 388 ng/mL F 22.0-322.0 IRON SATURATION 2023-08-19 08:44:08 22 % F 21.0-49.0 TIBC 2023-08-19 08:44:08 204 ug/dL F 250.0-425.0 Iron [Mass/volume] in Serum or Plasma 2023-08-19 08:33:06 45 ug/dL F 65.0-175.0 Iron binding capacity.unsaturated [Mass/volume] in Serum or Plasma 2023-08-19 08:33:06 159 ug/dL F 75.0-360.0 IRON SATURATION 2023-07-17 08:34:24 26 % F 21.0-49.0 TIBC 2023-07-17 08:34:24 195 ug/dL F 250.0-425.0 Iron [Mass/volume] in Serum or Plasma 2023-07-17 08:16:52 51 ug/dL F 65.0-175.0 Iron binding capacity.unsaturated [Mass/volume] in Serum or Plasma 2023-07-17 08:16:52 144 ug/dL F 75.0-360.0 Ferritin [Mass/volume] in Serum or Plasma 2023-07-17 07:50:08 470 ng/mL F 22.0-322.0 HCT CALC HGBX3 2023-07-16 23:47:29 36.3 % F 42.0-52.0 Reticulocytes/100 erythrocytes in Blood by Automated count 2023-07-16 23:46:34 2.54 % F 0.7-2.5 Platelets [#/volume] in Blood by Automated count 2023-07-16 23:46:34 264 x 10^3 cells/uL F 140.0-450.0 Erythrocyte distribution width [Ratio] by Automated count 2023-07-16 23:46:34 15.4 % F 11.0-15.0 Hemoglobin [Mass/volume] in Blood 2023-07-16 23:46:34 12.1 g/dL F 14.0-18.0 MCH [Entitic mass] by Automated count 2023-07-16 23:46:34 30.4 pg F 25.9-34.2 MCHC [Mass/volume] by Automated count 2023-07-16 23:46:34 32.1 g/dL F 29.6-35.3 Hematocrit [Volume Fraction] of Blood by Automated count 2023-07-16 23:46:34 37.6 % F 41.0-53.0 Erythrocytes [#/volume] in Blood by Automated count 2023-07-16 23:46:34 3.97 x 10'6 cells/uL F 4.6-6.2 MCV [Entitic volume] by Automated count 2023-07-16 23:46:34 94.6 fL F 80.0-100.0 IRON SATURATION 2023-06-13 06:22:17 33 % F 21.0-49.0 TIBC 2023-06-13 06:22:17 186 ug/dL F 250.0-425.0 Iron binding capacity.unsaturated [Mass/volume] in Serum or Plasma 2023-06-13 06:19:12 125 ug/dL F 75.0-360.0 Iron [Mass/volume] in Serum or Plasma 2023-06-13 06:19:12 61 ug/dL F 65.0-175.0 Ferritin [Mass/volume] in Serum or Plasma 2023-06-13 02:37:12 411 ng/mL F 22.0-322.0 HCT CALC HGBX3 2023-06-12 15:38:23 34.2 % F 42.0-52.0 MCV [Entitic volume] by Automated count 2023-06-12 15:37:39 99.5 fL F 80.0-100.0 Reticulocytes/100 erythrocytes in Blood by Automated count 2023-06-12 15:37:37 2.71 % F 0.7-2.5 Erythrocyte distribution width [Ratio] by Automated count 2023-06-12 15:37:37 16.1 % F 11.0-15.0 Hemoglobin [Mass/volume] in Blood 2023-06-12 15:37:37 11.4 g/dL F 14.0-18.0 Platelets [#/volume] in Blood by Automated count 2023-06-12 15:37:37 298 x 10^3 cells/uL F 140.0-450.0 MCH [Entitic mass] by Automated count 2023-06-12 15:37:37 30.9 pg F 25.9-34.2 MCHC [Mass/volume] by Automated count 2023-06-12 15:37:37 31.1 g/dL F 29.6-35.3 Erythrocytes [#/volume] in Blood by Automated count 2023-06-12 15:37:37 3.68 x 10'6 cells/uL F 4.6-6.2 Hematocrit [Volume Fraction] of Blood by Automated count 2023-06-12 15:37:37 36.6 % F 41.0-53.0 IRON SATURATION 2023-04-23 07:21:58 42 % F 21.0-49.0 TIBC 2023-04-23 07:21:58 184 ug/dL F 250.0-425.0 Ferritin [Mass/volume] in Serum or Plasma 2023-04-23 07:12:42 364 ng/mL F 22.0-322.0 Iron [Mass/volume] in Serum or Plasma 2023-04-23 06:55:44 78 ug/dL F 65.0-175.0 Iron binding capacity.unsaturated [Mass/volume] in Serum or Plasma 2023-04-23 06:55:44 106 ug/dL F 75.0-360.0 HCT CALC HGBX3 2023-04-22 17:59:48 30.9 % F 42.0-52.0 Reticulocytes/100 erythrocytes in Blood by Automated count 2023-04-22 17:59:33 2.43 % F 0.7-2.5 Erythrocyte distribution width [Ratio] by Automated count 2023-04-22 17:59:33 16.5 % F 11.0-15.0 Hemoglobin [Mass/volume] in Blood 2023-04-22 17:59:33 10.3 g/dL F 14.0-18.0 Platelets [#/volume] in Blood by Automated count 2023-04-22 17:59:33 262 x 10^3 cells/uL F 140.0-450.0 MCH [Entitic mass] by Automated count 2023-04-22 17:59:33 31.3 pg F 25.9-34.2 MCHC [Mass/volume] by Automated count 2023-04-22 17:59:33 31.8 g/dL F 29.6-35.3 Erythrocytes [#/volume] in Blood by Automated count 2023-04-22 17:59:33 3.29 x 10'6 cells/uL F 4.6-6.2 MCV [Entitic volume] by Automated count 2023-04-22 17:59:33 98.3 fL F 80.0-100.0 Hematocrit [Volume Fraction] of Blood by Automated count 2023-04-22 17:59:33 32.4 % F 41.0-53.0 IRON SATURATION 2023-03-17 02:33:19 30 % F 21.0-49.0 TIBC 2023-03-17 02:33:19 188 ug/dL F 250.0-425.0 Iron [Mass/volume] in Serum or Plasma 2023-03-17 02:29:58 56 ug/dL F 65.0-175.0 Iron binding capacity.unsaturated [Mass/volume] in Serum or Plasma 2023-03-17 02:29:58 132 ug/dL F 75.0-360.0 Ferritin [Mass/volume] in Serum or Plasma 2023-03-16 23:03:39 445 ng/mL F 22.0-322.0 HCT CALC HGBX3 2023-03-16 18:18:09 34.8 % F 42.0-52.0 Reticulocytes/100 erythrocytes in Blood by Automated count 2023-03-16 18:17:33 3.14 % F 0.7-2.5 Erythrocyte distribution width [Ratio] by Automated count 2023-03-16 18:17:33 14.5 % F 11.0-15.0 Hemoglobin [Mass/volume] in Blood 2023-03-16 18:17:33 11.6 g/dL F 14.0-18.0 Platelets [#/volume] in Blood by Automated count 2023-03-16 18:17:33 293 x 10^3 cells/uL F 140.0-450.0 MCH [Entitic mass] by Automated count 2023-03-16 18:17:33 30.5 pg F 25.9-34.2 MCHC [Mass/volume] by Automated count 2023-03-16 18:17:33 32.8 g/dL F 29.6-35.3 Erythrocytes [#/volume] in Blood by Automated count 2023-03-16 18:17:33 3.81 x 10'6 cells/uL F 4.6-6.2 Hematocrit [Volume Fraction] of Blood by Automated count 2023-03-16 18:17:33 35.5 % F 41.0-53.0 MCV [Entitic volume] by Automated count 2023-03-16 18:17:33 93.1 fL F 80.0-100.0 IRON SATURATION 2023-02-21 05:35:22 29 % F 21.0-49.0 TIBC 2023-02-21 05:35:22 207 ug/dL F 250.0-425.0 Iron [Mass/volume] in Serum or Plasma 2023-02-21 05:34:13 61 ug/dL F 65.0-175.0 Iron binding capacity.unsaturated [Mass/volume] in Serum or Plasma 2023-02-21 05:34:13 146 ug/dL F 75.0-360.0 HCT CALC HGBX3 2023-02-20 23:28:30 37.5 % F 42.0-52.0 Reticulocytes/100 erythrocytes in Blood by Automated count 2023-02-20 23:28:23 2.94 % F 0.7-2.5 Erythrocyte distribution width [Ratio] by Automated count 2023-02-20 23:28:23 15.1 % F 11.0-15.0 Hemoglobin [Mass/volume] in Blood 2023-02-20 23:28:23 12.5 g/dL F 14.0-18.0 Platelets [#/volume] in Blood by Automated count 2023-02-20 23:28:23 300 x 10^3 cells/uL F 140.0-450.0 MCH [Entitic mass] by Automated count 2023-02-20 23:28: 30.3 pg F 25.9-34.2 MCHC [Mass/volume] by Automated count 2023-02-20 23:28:23 31.9 g/dL F 29.6-35.3 Erythrocytes [#/volume] in Blood by Automated count 2023-02-20 23:28: 4.11 x 10'6 cells/uL F 4.6-6.2 Hematocrit [Volume Fraction] of Blood by Automated count 2023-02-20 23:28: 39 % F 41.0-53.0 MCV [Entitic volume] by Automated count 2023-02-20 23:: 95 fL F 80.0-100.0 Ferritin [Mass/volume] in Serum or Plasma 2023-02-20 19:22:24 429 ng/mL F 22.0-322.0 IRON SATURATION 2023-01-15 06:44:53 40 % F 21.0-49.0 TIBC 2023-01-15 06:44:53 211 ug/dL F 250.0-425.0 Iron [Mass/volume] in Serum or Plasma 2023-01-15 06:35:35 84 ug/dL F 65.0-175.0 Iron binding capacity.unsaturated [Mass/volume] in Serum or Plasma 2023-01-15 06:35:35 127 ug/dL F 75.0-360.0 Ferritin [Mass/volume] in Serum or Plasma 2023-01-15 03:26:11 370 ng/mL F 22.0-322.0 HCT CALC HGBX3 2023-01-14 19:36:59 37.2 % F 42.0-52.0 Reticulocytes/100 erythrocytes in Blood by Automated count 2023-01-14 19:36:09 2.13 % F 0.7-2.5 Erythrocyte distribution width [Ratio] by Automated count 2023-01-14 19:36:09 15.7 % F 11.0-15.0 Hemoglobin [Mass/volume] in Blood 2023-01-14 19:36:09 12.4 g/dL F 14.0-18.0 Platelets [#/volume] in Blood by Automated count 2023-01-14 19:36:09 274 x 10^3 cells/uL F 140.0-450.0 MCH [Entitic mass] by Automated count 2023-01-14 19:36:09 29.2 pg F 25.9-34.2 MCHC [Mass/volume] by Automated count 2023-01-14 19:36:09 32.6 g/dL F 29.6-35.3 Hematocrit [Volume Fraction] of Blood by Automated count 2023-01-14 19:36:09 38 % F 41.0-53.0 Erythrocytes [#/volume] in Blood by Automated count 2023-01-14 19:36:09 4.23 x 10'6 cells/uL F 4.6-6.2 MCV [Entitic volume] by Automated count 2023-01-14 19:36:09 89.7 fL F 80.0-100.0 IRON SATURATION 2022-12-12 05:56:40 27 % F 21.0-49.0 TIBC 2022-12-12 05:56:40 200 ug/dL F 250.0-425.0 Iron [Mass/volume] in Serum or Plasma 2022-12-12 05:39:18 54 ug/dL F 65.0-175.0 Iron binding capacity.unsaturated [Mass/volume] in Serum or Plasma 2022-12-12 05:39:18 146 ug/dL F 75.0-360.0 Ferritin [Mass/volume] in Serum or Plasma 2022-12-12 03:56:10 291 ng/mL F 22.0-322.0 HCT CALC HGBX3 2022-12-11 23:31:30 37.5 % F 42.0-52.0 Reticulocytes/100 erythrocytes in Blood by Automated count 2022-12-11 23:31:13 1.75 % F 0.8-2.1 Erythrocyte distribution width [Ratio] by Automated count 2022-12-11 23:31:13 15 % F 11.0-15.0 Hemoglobin [Mass/volume] in Blood 2022-12-11 23:31:13 12.5 g/dL F 14.0-18.0 Platelets [#/volume] in Blood by Automated count 2022-12-11 23:31:13 282 x 10^3 cells/uL F 150.0-400.0 MCH [Entitic mass] by Automated count 2022-12-11 23:31:13 29.6 pg F 27.0-31.0 MCHC [Mass/volume] by Automated count 2022-12-11 23:31:13 32.9 g/dL F 32.0-36.0 Erythrocytes [#/volume] in Blood by Automated count 2022-12-11 23:31:13 4.23 x 10'6 cells/uL F 4.6-6.2 Hematocrit [Volume Fraction] of Blood by Automated count 2022-12-11 23:31:13 38.2 % F 42.0-52.0 MCV [Entitic volume] by Automated count 2022-12-11 23:31:13 90.1 fL F 80.0-100.0 IRON SATURATION 2022-11-15 04:43:15 26 % F 21.0-49.0 TIBC 2022-11-15 04:43:15 210 ug/dL F 250.0-425.0 Iron [Mass/volume] in Serum or Plasma 2022-11-15 04:29:49 54 ug/dL F 65.0-175.0 Iron binding capacity.unsaturated [Mass/volume] in Serum or Plasma 2022-11-15 04:29:49 156 ug/dL F 75.0-360.0 Ferritin [Mass/volume] in Serum or Plasma 2022-11-15 02:17:07 300 ng/mL F 22.0-322.0 HCT CALC HGBX3 2022-11-15 01:38:57 41.4 % F 42.0-52.0 Reticulocytes/100 erythrocytes in Blood by Automated count 2022-11-15 01:38:18 1.57 % F 0.8-2.1 Erythrocyte distribution width [Ratio] by Automated count 2022-11-15 01:38:18 16 % F 11.0-15.0 Hemoglobin [Mass/volume] in Blood 2022-11-15 01:38:18 13.8 g/dL F 14.0-18.0 Platelets [#/volume] in Blood by Automated count 2022-11-15 01:38:18 184 x 10^3 cells/uL F 150.0-400.0 MCHC [Mass/volume] by Automated count 2022-11-15 01:38:18 32.3 g/dL F 32.0-36.0 MCH [Entitic mass] by Automated count 2022-11-15 01:38:18 29.6 pg F 27.0-31.0 Erythrocytes [#/volume] in Blood by Automated count 2022-11-15 01:38:18 4.66 x 10'6 cells/uL F 4.6-6.2 Hematocrit [Volume Fraction] of Blood by Automated count 2022-11-15 01:38:18 42.6 % F 42.0-52.0 MCV [Entitic volume] by Automated count 2022-11-15 01:38:18 91.5 fL F 80.0-100.0 IRON SATURATION 2022-10-16 08:41:36 18 % F 21.0-49.0 TIBC 2022-10-16 08:41:36 219 ug/dL F 250.0-425.0 Iron [Mass/volume] in Serum or Plasma 2022-10-16 08:32:11 39 ug/dL F 65.0-175.0 Iron binding capacity.unsaturated [Mass/volume] in Serum or Plasma 2022-10-16 08:32:11 180 ug/dL F 75.0-360.0 HCT CALC HGBX3 2022-10-15 21:00:02 35.7 % F 42.0-52.0 Reticulocytes/100 erythrocytes in Blood by Automated count 2022-10-15 20:59:33 2.11 % F 0.8-2.1 Erythrocyte distribution width [Ratio] by Automated count 2022-10-15 20:59:33 17.3 % F 11.0-15.0 Hemoglobin [Mass/volume] in Blood 2022-10-15 20:59:33 11.9 g/dL F 14.0-18.0 Platelets [#/volume] in Blood by Automated count 2022-10-15 20:59:33 242 x 10^3 cells/uL F 150.0-400.0 MCH [Entitic mass] by Automated count 2022-10-15 20:59:33 29.2 pg F 27.0-31.0 MCHC [Mass/volume] by Automated count 2022-10-15 20:59:33 31.9 g/dL F 32.0-36.0 Erythrocytes [#/volume] in Blood by Automated count 2022-10-15 20:59:33 4.07 x 10'6 cells/uL F 4.6-6.2 Hematocrit [Volume Fraction] of Blood by Automated count 2022-10-15 20:59:33 37.4 % F 42.0-52.0 MCV [Entitic volume] by Automated count 2022-10-15 20:59:33 91.7 fL F 80.0-100.0 Ferritin [Mass/volume] in Serum or Plasma 2022-10-15 20:00:30 202 ng/mL F 22.0-322.0 IRON SATURATION 2022-09-23 20:20:31 17 % F 21.0-49.0 TIBC 2022-09-23 20:20:31 252 ug/dL F 250.0-425.0 Iron [Mass/volume] in Serum or Plasma 2022-09-23 19:58:51 43 ug/dL F 65.0-175.0 Iron binding capacity.unsaturated [Mass/volume] in Serum or Plasma 2022-09-23 19:58:51 209 ug/dL F 75.0-360.0 Ferritin [Mass/volume] in Serum or Plasma 2022-09-23 19:33:57 420 ng/mL F 22.0-322.0 HCT CALC HGBX3 2022-09-23 17:41:57 32.1 % F 42.0-52.0 Reticulocytes/100 erythrocytes in Blood by Automated count 2022-09-23 17:40:54 3.64 % F 0.8-2.1 Erythrocyte distribution width [Ratio] by Automated count 2022-09-23 17:40:54 18.2 % F 11.0-15.0 Hemoglobin [Mass/volume] in Blood 2022-09-23 17:40:54 10.7 g/dL F 14.0-18.0 Platelets [#/volume] in Blood by Automated count 2022-09-23 17:40:54 255 x 10^3 cells/uL F 150.0-400.0 MCH [Entitic mass] by Automated count 2022-09-23 17:40:54 29.4 pg F 27.0-31.0 Erythrocytes [#/volume] in Blood by Automated count 2022-09-23 17:40:54 3.63 x 10'6 cells/uL F 4.6-6.2 MCHC [Mass/volume] by Automated count 2022-09-23 17:40:54 32.6 g/dL F 32.0-36.0 Hematocrit [Volume Fraction] of Blood by Automated count 2022-09-23 17:40:54 32.8 % F 42.0-52.0 MCV [Entitic volume] by Automated count 2022-09-23 17:40:54 90.2 fL F 80.0-100.0 HCT CALC HGBX3 2022-09-08 16:11:49 28.5 % F 42.0-52.0 Hemoglobin [Mass/volume] in Blood 2022-09-08 16:11:45 9.5 g/dL F 14.0-18.0 IRON SATURATION 2022-09-03 07:05:11 12 % F 21.0-49.0 TIBC 2022-09-03 07:05:11 260 ug/dL F 250.0-425.0 Iron binding capacity.unsaturated [Mass/volume] in Serum or Plasma 2022-09-03 06:41:29 229 ug/dL F 75.0-360.0 Iron [Mass/volume] in Serum or Plasma 2022-09-03 06:40:41 31 ug/dL F 65.0-175.0 HCT CALC HGBX3 2022-09-02 19:14:07 31.5 % F 42.0-52.0 Reticulocytes/100 erythrocytes in Blood by Automated count 2022-09-02 19:13:16 2.61 % F 0.8-2.1 Erythrocyte distribution width [Ratio] by Automated count 2022-09-02 19:13:16 17.2 % F 11.0-15.0 Hemoglobin [Mass/volume] in Blood 2022-09-02 19:13:16 10.5 g/dL F 14.0-18.0 Platelets [#/volume] in Blood by Automated count 2022-09-02 19:13:16 356 x 10^3 cells/uL F 150.0-400.0 MCH [Entitic mass] by Automated count 2022-09-02 19:13:16 27.7 pg F 27.0-31.0 MCHC [Mass/volume] by Automated count 2022-09-02 19:13:16 32.3 g/dL F 32.0-36.0 Erythrocytes [#/volume] in Blood by Automated count 2022-09-02 19:13:16 3.79 x 10'6 cells/uL F 4.6-6.2 Hematocrit [Volume Fraction] of Blood by Automated count 2022-09-02 19:13:16 32.5 % F 42.0-52.0 MCV [Entitic volume] by Automated count 2022-09-02 19:13:16 85.8 fL F 80.0-100.0 Ferritin [Mass/volume] in Serum or Plasma 2022-09-02 18:21:25 248 ng/mL F 22.0-322.0 IRON SATURATION 2022-07-31 06:29:32 9 % F 21.0-49.0 TIBC 2022-07-31 06:29:32 245 ug/dL F 250.0-425.0 Iron [Mass/volume] in Serum or Plasma 2022-07-31 06:21:50 23 ug/dL F 65.0-175.0 Iron binding capacity.unsaturated [Mass/volume] in Serum or Plasma 2022-07-31 06:21:50 222 ug/dL F 75.0-360.0 Ferritin [Mass/volume] in Serum or Plasma 2022-07-30 20:58:53 304 ng/mL F 22.0-322.0 HCT CALC HGBX3 HCT CALC HGBX3 HCT CALC HGBX3 HCT CALC HGBX3 Comorbidities Description Draw Date Result/Unit Status Ref Range Result Comments Hemoglobin A1c/Hemoglobin.total in Blood 2023-10-17 06:49:10 6 %A1c F 0.0-5.6 IP INSULIN 2022-11-13 20:57:42 0 F FluidBP Description Draw Date Result/Unit Status Ref Range Result Comments Sodium [Moles/volume] in Serum or Plasma 2024-09-20 07:55:31 140 mEq/L F 132.0-146.0 Sodium [Moles/volume] in Serum or Plasma 2024-08-18 08:22:14 140 mEq/L F 132.0-146.0 Sodium [Moles/volume] in Serum or Plasma 2024-07-20 08:07:18 138 mEq/L F 132.0-146.0 Sodium [Moles/volume] in Serum or Plasma 2024-06-21 08:24:59 138 mEq/L F 132.0-146.0 Sodium [Moles/volume] in Serum or Plasma 2024-05-26 06:29:59 139 mEq/L F 132.0-146.0 Sodium [Moles/volume] in Serum or Plasma 2024-04-23 06:23:21 138 mEq/L F 132.0-146.0 Sodium [Moles/volume] in Serum or Plasma 2024-03-16 06:33:10 140 mEq/L F 132.0-146.0 Sodium [Moles/volume] in Serum or Plasma 2024-02-23 18:24:36 141 mEq/L F 132.0-146.0 Sodium [Moles/volume] in Serum or Plasma 2024-01-16 04:32:18 136 mEq/L F 132.0-146.0 Sodium [Moles/volume] in Serum or Plasma 2023-12-12 02:36:05 139 mEq/L F 132.0-146.0 Sodium [Moles/volume] in Serum or Plasma 2023-11-17 07:32:37 142 mEq/L F 132.0-146.0 Sodium [Moles/volume] in Serum or Plasma 2023-10-17 06:57:19 139 mEq/L F 132.0-146.0 Sodium [Moles/volume] in Serum or Plasma 2023-09-12 07:44:05 135 mEq/L F 132.0-146.0 Sodium [Moles/volume] in Serum or Plasma 2023-08-19 08:33:09 137 mEq/L F 132.0-146.0 Sodium [Moles/volume] in Serum or Plasma 2023-07-17 08:16:52 138 mEq/L F 132.0-146.0 Sodium [Moles/volume] in Serum or Plasma 2023-06-12 16:10:37 138 mEq/L F 132.0-146.0 Sodium [Moles/volume] in Serum or Plasma 2023-04-23 04:06:32 139 mEq/L F 132.0-146.0 Sodium [Moles/volume] in Serum or Plasma 2023-03-16 16:47:36 135 mEq/L F 132.0-146.0 Sodium [Moles/volume] in Serum or Plasma 2023-02-20 15:23:16 140 mEq/L F 132.0-146.0 Sodium [Moles/volume] in Serum or Plasma 2023-01-14 23:48:14 144 mEq/L F 132.0-146.0 Sodium [Moles/volume] in Serum or Plasma 2022-12-12 02:02:27 139 mEq/L F 132.0-146.0 Sodium [Moles/volume] in Serum or Plasma 2022-11-15 01:50:18 140 mEq/L F 132.0-146.0 Sodium [Moles/volume] in Serum or Plasma 2022-10-15 18:56:41 142 mEq/L F 132.0-146.0 Sodium [Moles/volume] in Serum or Plasma 2022-09-23 17:08:48 139 mEq/L F 132.0-146.0 Sodium [Moles/volume] in Serum or Plasma 2022-09-08 15:53:46 140 mEq/L F 132.0-146.0 Sodium [Moles/volume] in Serum or Plasma 2022-09-02 16:46:31 137 mEq/L F 132.0-146.0 Sodium [Moles/volume] in Serum or Plasma 2022-07-30 21:21:50 136 mEq/L F 132.0-146.0 General Description Draw Date Result/Unit Status Ref Range Result Comments [facility] PD 2024-09-20 07:09:30 10.1 g/day F Aspartate aminotransferase [Enzymatic activity/volume] in Serum or Plasma 2024-09-20 00:53:17 18 U/L F 0.0-33.0 Alanine aminotransferase [Enzymatic activity/volume] in Serum or Plasma 2024-09-20 00:53:17 20 U/L F 10.0-49.0 Aluminum [Mass/volume] in Serum or Plasma 2024-08-18 15:43:55 10 ug/L F 0.0-9.0 Aspartate aminotransferase [Enzymatic activity/volume] in Serum or Plasma 2024-08-18 05:27:26 18 U/L F 0.0-33.0 Alanine aminotransferase [Enzymatic activity/volume] in Serum or Plasma 2024-08-18 05:27:26 25 U/L F 10.0-49.0 Aspartate aminotransferase [Enzymatic activity/volume] in Serum or Plasma 2024-07-20 00:11:22 19 U/L F 0.0-33.0 Alanine aminotransferase [Enzymatic activity/volume] in Serum or Plasma 2024-07-20 00:11:22 24 U/L F 10.0-49.0 [facility] 2024-06-21 00:14:25 12.9 g/day F Aspartate aminotransferase [Enzymatic activity/volume] in Serum or Plasma 2024-06-20 20:52:22 19 U/L F 0.0-33.0 Alanine aminotransferase [Enzymatic activity/volume] in Serum or Plasma 2024-06-20 20:52:22 36 U/L F 10.0-49.0 Aspartate aminotransferase [Enzymatic activity/volume] in Serum or Plasma 2024-05-25 22:39:22 18 U/L F 0.0-33.0 Alanine aminotransferase [Enzymatic activity/volume] in Serum or Plasma 2024-05-25 22:39:22 17 U/L F 10.0-49.0 Aspartate aminotransferase [Enzymatic activity/volume] in Serum or Plasma 2024-04-22 22:38:20 17 U/L F 0.0-33.0 Alanine aminotransferase [Enzymatic activity/volume] in Serum or Plasma 2024-04-22 22:38:20 29 U/L F 10.0-49.0 [facility] 2024-03-17 12:54:10 12.3 g/day K Aspartate aminotransferase [Enzymatic activity/volume] in Serum or Plasma 2024-03-15 15:28:30 16 U/L F 0.0-33.0 Alanine aminotransferase [Enzymatic activity/volume] in Serum or Plasma 2024-03-15 15:28:30 22 U/L F 10.0-49.0 Aspartate aminotransferase [Enzymatic activity/volume] in Serum or Plasma 2024-02-23 15:28:33 13 U/L F 0.0-33.0 Alanine aminotransferase [Enzymatic activity/volume] in Serum or Plasma 2024-02-23 15:28:33 20 U/L F 10.0-49.0 Aspartate aminotransferase [Enzymatic activity/volume] in Serum or Plasma 2024-01-15 17:25:30 13 U/L F 0.0-33.0 Alanine aminotransferase [Enzymatic activity/volume] in Serum or Plasma 2024-01-15 17:25:30 19 U/L F 10.0-49.0 [facility] 2023-12-11 20:31:33 9.7 g/day F Aspartate aminotransferase [Enzymatic activity/volume] in Serum or Plasma 2023-12-11 19:37:29 15 U/L F 0.0-33.0 Alanine aminotransferase [Enzymatic activity/volume] in Serum or Plasma 2023-12-11 19:37:29 19 U/L F 10.0-49.0 Aspartate aminotransferase [Enzymatic activity/volume] in Serum or Plasma 2023-11-16 23:39:35 10 U/L F 0.0-33.0 Alanine aminotransferase [Enzymatic activity/volume] in Serum or Plasma 2023-11-16 23:39:35 13 U/L F 10.0-49.0 Aspartate aminotransferase [Enzymatic activity/volume] in Serum or Plasma 2023-10-16 23:56:58 13 U/L F 0.0-33.0 Alanine aminotransferase [Enzymatic activity/volume] in Serum or Plasma 2023-10-16 23:56:58 15 U/L F 10.0-49.0 [facility] 2023-09-12 03:51:19 9.6 g/day F Aspartate aminotransferase [Enzymatic activity/volume] in Serum or Plasma 2023-09-11 21:15:47 20 U/L F 0.0-33.0 Alanine aminotransferase [Enzymatic activity/volume] in Serum or Plasma 2023-09-11 21:15:47 21 U/L F 10.0-49.0 Aspartate aminotransferase [Enzymatic activity/volume] in Serum or Plasma 2023-08-19 06:32:05 14 U/L F 0.0-33.0 Alanine aminotransferase [Enzymatic activity/volume] in Serum or Plasma 2023-08-19 06:32:05 14 U/L F 10.0-49.0 Aluminum [Mass/volume] in Serum or Plasma 2023-08-18 19:47:45 10 ug/L F 0.0-9.0 Aspartate aminotransferase [Enzymatic activity/volume] in Serum or Plasma 2023-07-16 20:33:34 16 U/L F 0.0-33.0 Alanine aminotransferase [Enzymatic activity/volume] in Serum or Plasma 2023-07-16 20:33:34 18 U/L F 10.0-49.0 [facility] 2023-06-12 19:45:02 7.7 g/day F Aspartate aminotransferase [Enzymatic activity/volume] in Serum or Plasma 2023-06-12 16:10:37 15 U/L F 0.0-33.0 Alanine aminotransferase [Enzymatic activity/volume] in Serum or Plasma 2023-06-12 16:10:37 15 U/L F 10.0-49.0 Aspartate aminotransferase [Enzymatic activity/volume] in Serum or Plasma 2023-04-23 04:06:32 12 U/L F 0.0-33.0 Alanine aminotransferase [Enzymatic activity/volume] in Serum or Plasma 2023-04-23 04:06:32 12 U/L F 10.0-49.0 [facility] 2023-03-17 00:43:28 6.9 g/day F Aspartate aminotransferase [Enzymatic activity/volume] in Serum or Plasma 2023-03-16 16:47:36 11 U/L F 0.0-33.0 Alanine aminotransferase [Enzymatic activity/volume] in Serum or Plasma 2023-03-16 16:47:36 12 U/L F 10.0-49.0 Aspartate aminotransferase [Enzymatic activity/volume] in Serum or Plasma 2023-02-20 15:23:16 19 U/L F 0.0-33.0 Alanine aminotransferase [Enzymatic activity/volume] in Serum or Plasma 2023-02-20 15:23:16 22 U/L F 10.0-49.0 Aspartate aminotransferase [Enzymatic activity/volume] in Serum or Plasma 2023-01-14 23:48:14 16 U/L F 0.0-33.0 Alanine aminotransferase [Enzymatic activity/volume] in Serum or Plasma 2023-01-14 23:48:14 15 U/L F 10.0-49.0 Aspartate aminotransferase [Enzymatic activity/volume] in Serum or Plasma 2022-12-12 02:02:27 10 U/L F 0.0-33.0 Alanine aminotransferase [Enzymatic activity/volume] in Serum or Plasma 2022-12-12 02:02:27 9 U/L F 10.0-49.0 [facility] 2022-12-11 21:38:33 7.8 g/day F Aspartate aminotransferase [Enzymatic activity/volume] in Serum or Plasma 2022-11-15 01:50:18 13 U/L F 0.0-33.0 Alanine aminotransferase [Enzymatic activity/volume] in Serum or Plasma 2022-11-15 01:50:18 15 U/L F 10.0-49.0 INFUSION TIME 4 HR 2022-11-13 20:57:42 11 min F VOLUME INFUSED 4 HR 2022-11-13 20:57:42 2000 mL F Aspartate aminotransferase [Enzymatic activity/volume] in Serum or Plasma 2022-10-15 18:56:41 12 U/L F 0.0-33.0 Alanine aminotransferase [Enzymatic activity/volume] in Serum or Plasma 2022-10-15 18:56:41 13 U/L F 10.0-49.0 [facility] PD 2022-09-23 18:42:37 7.6 g/day F Aspartate aminotransferase [Enzymatic activity/volume] in Serum or Plasma 2022-09-23 17:08:48 17 U/L F 0.0-33.0 Alanine aminotransferase [Enzymatic activity/volume] in Serum or Plasma 2022-09-23 17:08:48 16 U/L F 10.0-49.0 Aluminum [Mass/volume] in Serum or Plasma 2022-09-08 19:44:59 10 ug/L F 0.0-9.0 Alanine aminotransferase [Enzymatic activity/volume] in Serum or Plasma 2022-09-08 15:53:46 12 U/L F 10.0-49.0 Aluminum [Mass/volume] in Serum or Plasma 2022-09-02 19:08:21 10 ug/L F 0.0-9.0 Aspartate aminotransferase [Enzymatic activity/volume] in Serum or Plasma 2022-09-02 16:46:33 15 U/L F 0.0-33.0 Alanine aminotransferase [Enzymatic activity/volume] in Serum or Plasma 2022-09-02 16:46:33 12 U/L F 10.0-49.0 Alanine aminotransferase [Enzymatic activity/volume] in Serum or Plasma 2022-07-30 21:21:50 19 U/L F 10.0-49.0 Chloride [Moles/volume] in Serum or Plasma 2022-07-30 21:21:50 98 mEq/L F 99.0-109.0 Aluminum [Mass/volume] in Serum or Plasma 2022-07-30 20:11:12 10 ug/L F 0.0-9.0 InfectionVaccination Description Draw Date Result/Unit Status Ref Range Result Comments Eosinophils/100 leukocytes in Blood by Automated count 2024-09-20 02:09:18 1.8 % F Lymphocytes/100 leukocytes in Blood by Automated count 2024-09-20 02:09:18 8.8 % F Basophils/100 leukocytes in Blood by Automated count 2024-09-20 02:09:18 0.6 % F Neutrophils/100 leukocytes in Blood by Automated count 2024-09-20 02:09:18 83.2 % F Monocytes/100 leukocytes in Blood by Automated count 2024-09-20 02:09:18 5.5 % F Monocytes [#/volume] in Blood by Automated count 2024-09-20 02:09:18 721 Cells/uL F 0.0-1100.0 Basophils [#/volume] in Blood by Automated count 2024-09-20 02:09:18 79 Cells/uL F 0.0-400.0 Eosinophils [#/volume] in Blood by Automated count 2024-09-20 02:09:18 236 Cells/uL F 0.0-700.0 Neutrophils [#/volume] in Blood by Automated count 2024-09-20 02:09:18 38555 Cells/uL F 2000.0-8800.0 Leukocytes [#/volume] in Blood by Automated count 2024-09-20 02:09:18 13.1 x 10^3 cells/uL F 4.0-11.0 Lymphocytes [#/volume] in Blood by Automated count 2024-09-20 02:09:18 1154 Cells/uL F 620.0-3660.0 Monocytes [#/volume] in Blood by Automated count 2024-08-18 15:05:13 478 Cells/uL F 0.0-1100.0 Eosinophils [#/volume] in Blood by Automated count 2024-08-18 15:05:13 156 Cells/uL F 0.0-700.0 Eosinophils/100 leukocytes in Blood by Automated count 2024-08-18 15:05:12 1.4 % F Lymphocytes/100 leukocytes in Blood by Automated count 2024-08-18 15:05:12 8.1 % F Monocytes/100 leukocytes in Blood by Automated count 2024-08-18 15:05:12 4.3 % F Basophils/100 leukocytes in Blood by Automated count 2024-08-18 15:05:12 0.4 % F Neutrophils/100 leukocytes in Blood by Automated count 2024-08-18 15:05:12 85.7 % F Neutrophils [#/volume] in Blood by Automated count 2024-08-18 15:05:12 9521 Cells/uL F 2000.0-8800.0 Leukocytes [#/volume] in Blood by Automated count 2024-08-18 15:05:12 11.1 x 10^3 cells/uL F 4.0-11.0 Lymphocytes [#/volume] in Blood by Automated count 2024-08-18 15:05:12 900 Cells/uL F 620.0-3660.0 Basophils [#/volume] in Blood by Automated count 2024-08-18 15:05:10 44 Cells/uL F 0.0-400.0 Lymphocytes [#/volume] in Blood by Automated count 2024-07-19 19:24:20 1239 Cells/uL F 620.0-3660.0 Neutrophils/100 leukocytes in Blood by Automated count 2024-07-19 19:24:20 83.8 % F Monocytes/100 leukocytes in Blood by Automated count 2024-07-19 19:24:20 4.5 % F Eosinophils/100 leukocytes in Blood by Automated count 2024-07-19 19:24:20 1.5 % F Lymphocytes/100 leukocytes in Blood by Automated count 2024-07-19 19:24:20 9.7 % F Basophils/100 leukocytes in Blood by Automated count 2024-07-19 19:24:20 0.4 % F Monocytes [#/volume] in Blood by Automated count 2024-07-19 19:24:20 575 Cells/uL F 0.0-1100.0 Eosinophils [#/volume] in Blood by Automated count 2024-07-19 19:24:20 192 Cells/uL F 0.0-700.0 Basophils [#/volume] in Blood by Automated count 2024-07-19 19:24:20 51 Cells/uL F 0.0-400.0 Neutrophils [#/volume] in Blood by Automated count 2024-07-19 19:24:20 43215 Cells/uL F 2000.0-8800.0 Leukocytes [#/volume] in Blood by Automated count 2024-07-19 19:24:20 12.8 x 10^3 cells/uL F 4.0-11.0 Monocytes/100 leukocytes in Blood by Automated count 2024-06-20 20:14:06 5.1 % F Basophils/100 leukocytes in Blood by Automated count 2024-06-20 20:14:06 0.2 % F Eosinophils/100 leukocytes in Blood by Automated count 2024-06-20 20:14:06 1.6 % F Neutrophils/100 leukocytes in Blood by Automated count 2024-06-20 20:14:06 82.1 % F Lymphocytes/100 leukocytes in Blood by Automated count 2024-06-20 20:14:06 11 % F Monocytes [#/volume] in Blood by Automated count 2024-06-20 20:14:06 778 Cells/uL F 0.0-1100.0 Basophils [#/volume] in Blood by Automated count 2024-06-20 20:14:06 30 Cells/uL F 0.0-400.0 Eosinophils [#/volume] in Blood by Automated count 2024-06-20 20:14:06 244 Cells/uL F 0.0-700.0 Neutrophils [#/volume] in Blood by Automated count 2024-06-20 20:14:06 85705 Cells/uL F 2000.0-8800.0 Leukocytes [#/volume] in Blood by Automated count 2024-06-20 20:14:06 15.2 x 10^3 cells/uL F 4.0-11.0 Lymphocytes [#/volume] in Blood by Automated count 2024-06-20 20:14:06 1678 Cells/uL F 620.0-3660.0 Basophils/100 leukocytes in Blood by Automated count 2024-05-26 03:21:15 0.2 % F Lymphocytes/100 leukocytes in Blood by Automated count 2024-05-26 03:21:15 12.6 % F Eosinophils/100 leukocytes in Blood by Automated count 2024-05-26 03:21:15 1.4 % F Neutrophils/100 leukocytes in Blood by Automated count 2024-05-26 03:21:15 81.4 % F Monocytes/100 leukocytes in Blood by Automated count 2024-05-26 03:21:15 4.4 % F Monocytes [#/volume] in Blood by Automated count 2024-05-26 03:21:15 504 Cell/uL F 0.0-1100.0 Eosinophils [#/volume] in Blood by Automated count 2024-05-26 03:21:15 160 Cell/uL F 0.0-700.0 Basophils [#/volume] in Blood by Automated count 2024-05-26 03:21:15 23 Cell/uL F 0.0-400.0 Neutrophils [#/volume] in Blood by Automated count 2024-05-26 03:21:15 9328 Cell/uL F 2000.0-8800.0 Leukocytes [#/volume] in Blood by Automated count 2024-05-26 03:21:15 11.5 x 10^3 cells/uL F 4.0-11.0 Lymphocytes [#/volume] in Blood by Automated count 2024-05-26 03:21:15 1444 Cell/uL F 620.0-3660.0 Neutrophils/100 leukocytes in Blood by Automated count 2024-04-22 23:44:16 80 % F Eosinophils/100 leukocytes in Blood by Automated count 2024-04-22 23:44:16 1.8 % F Lymphocytes/100 leukocytes in Blood by Automated count 2024-04-22 23:44:16 13.8 % F Monocytes/100 leukocytes in Blood by Automated count 2024-04-22 23:44:16 4 % F Basophils/100 leukocytes in Blood by Automated count 2024-04-22 23:44:16 0.4 % F Monocytes [#/volume] in Blood by Automated count 2024-04-22 23:44:16 558 Cell/uL F 0.0-1100.0 Basophils [#/volume] in Blood by Automated count 2024-04-22 23:44:16 56 Cell/uL F 0.0-400.0 Eosinophils [#/volume] in Blood by Automated count 2024-04-22 23:44:16 251 Cell/uL F 0.0-700.0 Neutrophils [#/volume] in Blood by Automated count 2024-04-22 23:44:16 88735 Cell/uL F 2000.0-8800.0 Leukocytes [#/volume] in Blood by Automated count 2024-04-22 23:44:16 14 x 10^3 cells/uL F 4.0-11.0 Lymphocytes [#/volume] in Blood by Automated count 2024-04-22 23:44:16 1926 Cell/uL F 620.0-3660.0 Monocytes/100 leukocytes in Blood by Automated count 2024-03-15 16:41:32 5.1 % F Basophils/100 leukocytes in Blood by Automated count 2024-03-15 16:41:32 0.8 % F Eosinophils/100 leukocytes in Blood by Automated count 2024-03-15 16:41:32 2.2 % F Monocytes [#/volume] in Blood by Automated count 2024-03-15 16:41:32 431 Cell/uL F 0.0-1100.0 Neutrophils [#/volume] in Blood by Automated count 2024-03-15 16:41:32 6295 Cell/uL F 2000.0-8800.0 Lymphocytes [#/volume] in Blood by Automated count 2024-03-15 16:41:32 1462 Cell/uL F 620.0-3660.0 Neutrophils/100 leukocytes in Blood by Automated count 2024-03-15 16:41:30 74.5 % F Lymphocytes/100 leukocytes in Blood by Automated count 2024-03-15 16:41:30 17.3 % F Eosinophils [#/volume] in Blood by Automated count 2024-03-15 16:41:30 186 Cell/uL F 0.0-700.0 Basophils [#/volume] in Blood by Automated count 2024-03-15 16:41:30 68 Cell/uL F 0.0-400.0 Leukocytes [#/volume] in Blood by Automated count 2024-03-15 16:41:30 8.4 x 10^3 cells/uL F 4.0-11.0 Monocytes/100 leukocytes in Blood by Automated count 2024-02-23 21:50:50 3.8 % F Neutrophils/100 leukocytes in Blood by Automated count 2024-02-23 21:50:50 80.8 % F Eosinophils/100 leukocytes in Blood by Automated count 2024-02-23 21:50:50 1.4 % F Basophils/100 leukocytes in Blood by Automated count 2024-02-23 21:50:50 0.6 % F Lymphocytes/100 leukocytes in Blood by Automated count 2024-02-23 21:50:50 13.4 % F Monocytes [#/volume] in Blood by Automated count 2024-02-23 21:50:50 469 Cell/uL F 0.0-1100.0 Basophils [#/volume] in Blood by Automated count 2024-02-23 21:50:50 74 Cell/uL F 0.0-400.0 Eosinophils [#/volume] in Blood by Automated count 2024-02-23 21:50:50 173 Cell/uL F 0.0-700.0 Neutrophils [#/volume] in Blood by Automated count 2024-02-23 21:50:50 9971 Cell/uL F 2000.0-8800.0 Leukocytes [#/volume] in Blood by Automated count 2024-02-23 21:50:50 12.3 x 10^3 cells/uL F 4.0-11.0 Lymphocytes [#/volume] in Blood by Automated count 2024-02-23 21:50:50 1654 Cell/uL F 620.0-3660.0 Lymphocytes/100 leukocytes in Blood by Automated count 2024-01-15 20:15:42 15 % F Eosinophils/100 leukocytes in Blood by Automated count 2024-01-15 20:15:42 1.7 % F Monocytes/100 leukocytes in Blood by Automated count 2024-01-15 20:15:42 3.6 % F Neutrophils/100 leukocytes in Blood by Automated count 2024-01-15 20:15:42 79.4 % F Basophils/100 leukocytes in Blood by Automated count 2024-01-15 20:15:42 0.3 % F Monocytes [#/volume] in Blood by Automated count 2024-01-15 20:15:42 463 Cell/uL F 0.0-1100.0 Eosinophils [#/volume] in Blood by Automated count 2024-01-15 20:15:42 219 Cell/uL F 0.0-700.0 Basophils [#/volume] in Blood by Automated count 2024-01-15 20:15:42 39 Cell/uL F 0.0-400.0 Neutrophils [#/volume] in Blood by Automated count 2024-01-15 20:15:42 93113 Cell/uL F 2000.0-8800.0 Leukocytes [#/volume] in Blood by Automated count 2024-01-15 20:15:42 12.9 x 10^3 cells/uL F 4.0-11.0 Lymphocytes [#/volume] in Blood by Automated count 2024-01-15 20:15:42 1930 Cell/uL F 620.0-3660.0 Basophils/100 leukocytes in Blood by Automated count 2023-12-11 19:29:32 0.6 % F Monocytes/100 leukocytes in Blood by Automated count 2023-12-11 19:29:32 3.3 % F Lymphocytes/100 leukocytes in Blood by Automated count 2023-12-11 19:29:32 14.1 % F Neutrophils/100 leukocytes in Blood by Automated count 2023-12-11 19:29:32 79.8 % F Eosinophils/100 leukocytes in Blood by Automated count 2023-12-11 19:29:32 2.1 % F Monocytes [#/volume] in Blood by Automated count 2023-12-11 19:29:32 309 Cell/uL F 0.0-1100.0 Basophils [#/volume] in Blood by Automated count 2023-12-11 19:29:32 56 Cell/uL F 0.0-400.0 Eosinophils [#/volume] in Blood by Automated count 2023-12-11 19:29:32 197 Cell/uL F 0.0-700.0 Neutrophils [#/volume] in Blood by Automated count 2023-12-11 19:29:32 7469 Cell/uL F 2000.0-8800.0 Leukocytes [#/volume] in Blood by Automated count 2023-12-11 19:29:32 9.4 x 10^3 cells/uL F 4.0-11.0 Lymphocytes [#/volume] in Blood by Automated count 2023-12-11 19:29:32 1320 Cell/uL F 620.0-3660.0 Eosinophils/100 leukocytes in Blood by Automated count 2023-11-17 07:11:38 3.1 % F Monocytes/100 leukocytes in Blood by Automated count 2023-11-17 07:11:38 3.7 % F Neutrophils/100 leukocytes in Blood by Automated count 2023-11-17 07:11:38 75.2 % F Basophils/100 leukocytes in Blood by Automated count 2023-11-17 07:11:38 0.5 % F Lymphocytes/100 leukocytes in Blood by Automated count 2023-11-17 07:11:38 17.5 % F Monocytes [#/volume] in Blood by Automated count 2023-11-17 07:11:38 442 Cell/uL F 0.0-1100.0 Basophils [#/volume] in Blood by Automated count 2023-11-17 07:11:38 60 Cell/uL F 0.0-400.0 Eosinophils [#/volume] in Blood by Automated count 2023-11-17 07:11:38 370 Cell/uL F 0.0-700.0 Neutrophils [#/volume] in Blood by Automated count 2023-11-17 07:11:38 8986 Cell/uL F 2000.0-8800.0 Leukocytes [#/volume] in Blood by Automated count 2023-11-17 07:11:38 12 x 10^3 cells/uL F 4.0-11.0 Lymphocytes [#/volume] in Blood by Automated count 2023-11-17 07:11:38 2091 Cell/uL F 620.0-3660.0 Monocytes [#/volume] in Blood by Automated count 2023-10-16 22:53:22 329 Cell/uL F 0.0-1100.0 Eosinophils [#/volume] in Blood by Automated count 2023-10-16 22:53:22 126 Cell/uL F 0.0-700.0 Neutrophils [#/volume] in Blood by Automated count 2023-10-16 22:53:22 5187 Cell/uL F 2000.0-8800.0 Neutrophils/100 leukocytes in Blood by Automated count 2023-10-16 22:53:20 74.2 % F Basophils/100 leukocytes in Blood by Automated count 2023-10-16 22:53:20 0.6 % F Lymphocytes/100 leukocytes in Blood by Automated count 2023-10-16 22:53:20 18.6 % F Monocytes/100 leukocytes in Blood by Automated count 2023-10-16 22:53:20 4.7 % F Eosinophils/100 leukocytes in Blood by Automated count 2023-10-16 22:53:20 1.8 % F Basophils [#/volume] in Blood by Automated count 2023-10-16 22:53:20 42 Cell/uL F 0.0-400.0 Leukocytes [#/volume] in Blood by Automated count 2023-10-16 22:53:20 7 x 10^3 cells/uL F 4.0-11.0 Lymphocytes [#/volume] in Blood by Automated count 2023-10-16 22:53:20 1300 Cell/uL F 620.0-3660.0 Leukocytes [#/volume] in Blood by Automated count 2023-09-11 22:57:43 7.5 x 10^3 cells/uL F 4.0-11.0 Basophils/100 leukocytes in Blood by Automated count 2023-09-11 22:57:41 1.1 % F Eosinophils/100 leukocytes in Blood by Automated count 2023-09-11 22:57:41 2.1 % F Monocytes [#/volume] in Blood by Automated count 2023-09-11 22:57:41 322 Cell/uL F 0.0-1100.0 Eosinophils [#/volume] in Blood by Automated count 2023-09-11 22:57:41 158 Cell/uL F 0.0-700.0 Basophils [#/volume] in Blood by Automated count 2023-09-11 22:57:41 82 Cell/uL F 0.0-400.0 Neutrophils [#/volume] in Blood by Automated count 2023-09-11 22:57:41 5325 Cell/uL F 2000.0-8800.0 Monocytes/100 leukocytes in Blood by Automated count 2023-09-11 22:57:39 4.3 % F Neutrophils/100 leukocytes in Blood by Automated count 2023-09-11 22:57:39 71 % F Lymphocytes/100 leukocytes in Blood by Automated count 2023-09-11 22:57:37 21.5 % F Lymphocytes [#/volume] in Blood by Automated count 2023-09-11 22:57:37 1612 Cell/uL F 620.0-3660.0 Neutrophils/100 leukocytes in Blood by Automated count 2023-08-20 13:29:35 81.6 % F Monocytes/100 leukocytes in Blood by Automated count 2023-08-20 13:29:35 2.7 % F Lymphocytes/100 leukocytes in Blood by Automated count 2023-08-20 13:29:35 13 % F Eosinophils/100 leukocytes in Blood by Automated count 2023-08-20 13:29:35 1.9 % F Basophils/100 leukocytes in Blood by Automated count 2023-08-20 13:29:35 0.8 % F Monocytes [#/volume] in Blood by Automated count 2023-08-20 13:29:35 262 Cell/uL F 0.0-1100.0 Basophils [#/volume] in Blood by Automated count 2023-08-20 13:29:35 78 Cell/uL F 0.0-400.0 Eosinophils [#/volume] in Blood by Automated count 2023-08-20 13:29:35 184 Cell/uL F 0.0-700.0 Neutrophils [#/volume] in Blood by Automated count 2023-08-20 13:29:35 7915 Cell/uL F 2000.0-8800.0 Leukocytes [#/volume] in Blood by Automated count 2023-08-20 13:29:35 9.7 x 10^3 cells/uL F 4.0-11.0 Lymphocytes [#/volume] in Blood by Automated count 2023-08-20 13:29:35 1261 Cell/uL F 620.0-3660.0 Neutrophils/100 leukocytes in Blood by Automated count 2023-07-16 23:46:34 72.1 % F Lymphocytes/100 leukocytes in Blood by Automated count 2023-07-16 23:46:34 21.2 % F Monocytes/100 leukocytes in Blood by Automated count 2023-07-16 23:46:34 3.9 % F Eosinophils/100 leukocytes in Blood by Automated count 2023-07-16 23:46:34 1.8 % F Basophils/100 leukocytes in Blood by Automated count 2023-07-16 23:46:34 1 % F Monocytes [#/volume] in Blood by Automated count 2023-07-16 23:46:34 353 Cell/uL F 0.0-1100.0 Basophils [#/volume] in Blood by Automated count 2023-07-16 23:46:34 90 Cell/uL F 0.0-400.0 Eosinophils [#/volume] in Blood by Automated count 2023-07-16 23:46:34 163 Cell/uL F 0.0-700.0 Neutrophils [#/volume] in Blood by Automated count 2023-07-16 23:46:34 6518 Cell/uL F 2000.0-8800.0 Leukocytes [#/volume] in Blood by Automated count 2023-07-16 23:46:34 9 x 10^3 cells/uL F 4.0-11.0 Lymphocytes [#/volume] in Blood by Automated count 2023-07-16 23:46:34 1916 Cell/uL F 620.0-3660.0 Lymphocytes/100 leukocytes in Blood by Automated count 2023-06-12 15:37:39 18.1 % F Neutrophils/100 leukocytes in Blood by Automated count 2023-06-12 15:37:39 75.8 % F Basophils/100 leukocytes in Blood by Automated count 2023-06-12 15:37:39 0.3 % F Eosinophils [#/volume] in Blood by Automated count 2023-06-12 15:37:39 268 Cell/uL F 0.0-700.0 Lymphocytes [#/volume] in Blood by Automated count 2023-06-12 15:37:39 1794 Cell/uL F 620.0-3660.0 Eosinophils/100 leukocytes in Blood by Automated count 2023-06-12 15:37:37 2.7 % F Monocytes/100 leukocytes in Blood by Automated count 2023-06-12 15:37:37 3.1 % F Monocytes [#/volume] in Blood by Automated count 2023-06-12 15:37:37 307 Cell/uL F 0.0-1100.0 Basophils [#/volume] in Blood by Automated count 2023-06-12 15:37:37 30 Cell/uL F 0.0-400.0 Neutrophils [#/volume] in Blood by Automated count 2023-06-12 15:37:37 7512 Cell/uL F 2000.0-8800.0 Leukocytes [#/volume] in Blood by Automated count 2023-06-12 15:37:37 9.9 x 10^3 cells/uL F 4.0-11.0 Eosinophils/100 leukocytes in Blood by Automated count 2023-04-22 17:59:33 2.9 % F Neutrophils/100 leukocytes in Blood by Automated count 2023-04-22 17:59:33 70.5 % F Monocytes/100 leukocytes in Blood by Automated count 2023-04-22 17:59:33 4.2 % F Basophils/100 leukocytes in Blood by Automated count 2023-04-22 17:59:33 0.4 % F Lymphocytes/100 leukocytes in Blood by Automated count 2023-04-22 17:59:33 21.9 % F Eosinophils [#/volume] in Blood by Automated count 2023-04-22 17:59:33 231 Cell/uL F 0.0-700.0 Monocytes [#/volume] in Blood by Automated count 2023-04-22 17:59:33 335 Cell/uL F 0.0-1100.0 Neutrophils [#/volume] in Blood by Automated count 2023-04-22 17:59:33 5626 Cell/uL F 2000.0-8800.0 Basophils [#/volume] in Blood by Automated count 2023-04-22 17:59:33 32 Cell/uL F 0.0-400.0 Leukocytes [#/volume] in Blood by Automated count 2023-04-22 17:59:33 8 x 10^3 cells/uL F 4.0-11.0 Lymphocytes [#/volume] in Blood by Automated count 2023-04-22 17:59:33 1748 Cell/uL F 620.0-3660.0 Monocytes/100 leukocytes in Blood by Automated count 2023-03-16 18:17:33 4.1 % F Neutrophils/100 leukocytes in Blood by Automated count 2023-03-16 18:17:33 75 % F Eosinophils/100 leukocytes in Blood by Automated count 2023-03-16 18:17:33 3.1 % F Basophils/100 leukocytes in Blood by Automated count 2023-03-16 18:17:33 0.4 % F Lymphocytes/100 leukocytes in Blood by Automated count 2023-03-16 18:17:33 17.4 % F Monocytes [#/volume] in Blood by Automated count 2023-03-16 18:17:33 502 Cell/uL F 0.0-1100.0 Basophils [#/volume] in Blood by Automated count 2023-03-16 18:17:33 49 Cell/uL F 0.0-400.0 Eosinophils [#/volume] in Blood by Automated count 2023-03-16 18:17:33 380 Cell/uL F 0.0-700.0 Neutrophils [#/volume] in Blood by Automated count 2023-03-16 18:17:33 9188 Cell/uL F 2000.0-8800.0 Leukocytes [#/volume] in Blood by Automated count 2023-03-16 18:17:33 12.2 x 10^3 cells/uL F 4.0-11.0 Lymphocytes [#/volume] in Blood by Automated count 2023-03-16 18:17:33 2132 Cell/uL F 620.0-3660.0 Monocytes/100 leukocytes in Blood by Automated count 2023-02-20 23:28:23 3.8 % F Lymphocytes/100 leukocytes in Blood by Automated count 2023-02-20 23:28:23 15.1 % F Basophils/100 leukocytes in Blood by Automated count 2023-02-20 23:28:23 0.4 % F Eosinophils/100 leukocytes in Blood by Automated count 2023-02-20 23:28:23 1.3 % F Neutrophils/100 leukocytes in Blood by Automated count 2023-02-20 23:28:23 79.4 % F Monocytes [#/volume] in Blood by Automated count 2023-02-20 23:28:23 513 Cell/uL F 0.0-1100.0 Eosinophils [#/volume] in Blood by Automated count 2023-02-20 23:28:23 176 Cell/uL F 0.0-700.0 Basophils [#/volume] in Blood by Automated count 2023-02-20 23:28:23 54 Cell/uL F 0.0-400.0 Neutrophils [#/volume] in Blood by Automated count 2023-02-20 23:28:23 49917 Cell/uL F 2000.0-8800.0 Leukocytes [#/volume] in Blood by Automated count 2023-02-20 23:28:23 13.5 x 10^3 cells/uL F 4.0-11.0 Lymphocytes [#/volume] in Blood by Automated count 2023-02-20 23:28:23 2040 Cell/uL F 620.0-3660.0 Monocytes/100 leukocytes in Blood by Automated count 2023-01-14 19:36:09 4.5 % F Basophils/100 leukocytes in Blood by Automated count 2023-01-14 19:36:09 0.5 % F Eosinophils/100 leukocytes in Blood by Automated count 2023-01-14 19:36:09 1.9 % F Lymphocytes/100 leukocytes in Blood by Automated count 2023-01-14 19:36:09 19.6 % F Neutrophils/100 leukocytes in Blood by Automated count 2023-01-14 19:36:09 73.6 % F Monocytes [#/volume] in Blood by Automated count 2023-01-14 19:36:09 530.1 Cell/uL F 0.0-1100.0 Eosinophils [#/volume] in Blood by Automated count 2023-01-14 19:36:09 223.82 Cell/uL F 0.0-700.0 Basophils [#/volume] in Blood by Automated count 2023-01-14 19:36:09 58.9 Cell/uL F 0.0-400.0 Neutrophils [#/volume] in Blood by Automated count 2023-01-14 19:36:09 8670.08 Cell/uL F 2000.0-8800.0 Leukocytes [#/volume] in Blood by Automated count 2023-01-14 19:36:09 11.8 x 10^3 cells/uL F 4.0-11.0 Lymphocytes [#/volume] in Blood by Automated count 2023-01-14 19:36:09 2308.88 Cell/uL F 620.0-3660.0 Neutrophils/100 leukocytes in Blood by Automated count 2022-12-11 23:31:13 72.8 % F Basophils/100 leukocytes in Blood by Automated count 2022-12-11 23:31:13 0.5 % F Eosinophils/100 leukocytes in Blood by Automated count 2022-12-11 23:31:13 1.9 % F Monocytes/100 leukocytes in Blood by Automated count 2022-12-11 23:31:13 4.3 % F Lymphocytes/100 leukocytes in Blood by Automated count 2022-12-11 23:31:13 20.5 % F Monocytes [#/volume] in Blood by Automated count 2022-12-11 23:31:13 485.47 Cell/uL F 0.0-1100.0 Basophils [#/volume] in Blood by Automated count 2022-12-11 23:31:13 56.45 Cell/uL F 0.0-400.0 Eosinophils [#/volume] in Blood by Automated count 2022-12-11 23:31:13 214.51 Cell/uL F 0.0-700.0 Lymphocytes [#/volume] in Blood by Automated count 2022-12-11 23:31:13 2314.45 Cell/uL F 1100.0-4800.0 Neutrophils [#/volume] in Blood by Automated count 2022-12-11 23:31:13 8219.12 Cell/uL F 2000.0-8800.0 Leukocytes [#/volume] in Blood by Automated count 2022-12-11 23:31:13 11.3 x 10^3 cells/uL F 4.5-11.0 Neutrophils/100 leukocytes in Blood by Automated count 2022-11-15 01:38:18 72.3 % F Eosinophils/100 leukocytes in Blood by Automated count 2022-11-15 01:38:18 2.3 % F Lymphocytes/100 leukocytes in Blood by Automated count 2022-11-15 01:38:18 21.3 % F Basophils/100 leukocytes in Blood by Automated count 2022-11-15 01:38:18 0.6 % F Monocytes/100 leukocytes in Blood by Automated count 2022-11-15 01:38:18 3.5 % F Monocytes [#/volume] in Blood by Automated count 2022-11-15 01:38:18 252.35 Cell/uL F 0.0-1100.0 Eosinophils [#/volume] in Blood by Automated count 2022-11-15 01:38:18 165.83 Cell/uL F 0.0-700.0 Basophils [#/volume] in Blood by Automated count 2022-11-15 01:38:18 43.26 Cell/uL F 0.0-400.0 Lymphocytes [#/volume] in Blood by Automated count 2022-11-15 01:38:18 1535.73 Cell/uL F 1100.0-4800.0 Neutrophils [#/volume] in Blood by Automated count 2022-11-15 01:38:18 5212.83 Cell/uL F 2000.0-8800.0 Leukocytes [#/volume] in Blood by Automated count 2022-11-15 01:38:18 7.2 x 10^3 cells/uL F 4.5-11.0 Eosinophils/100 leukocytes in Blood by Automated count 2022-10-15 20:59:33 2.1 % F Neutrophils/100 leukocytes in Blood by Automated count 2022-10-15 20:59:33 75.7 % F Lymphocytes/100 leukocytes in Blood by Automated count 2022-10-15 20:59:33 17.5 % F Basophils/100 leukocytes in Blood by Automated count 2022-10-15 20:59:33 1 % F Monocytes/100 leukocytes in Blood by Automated count 2022-10-15 20:59:33 3.7 % F Monocytes [#/volume] in Blood by Automated count 2022-10-15 20:59:33 337.44 Cell/uL F 0.0-1100.0 Basophils [#/volume] in Blood by Automated count 2022-10-15 20:59:33 91.2 Cell/uL F 0.0-400.0 Eosinophils [#/volume] in Blood by Automated count 2022-10-15 20:59:33 191.52 Cell/uL F 0.0-700.0 Lymphocytes [#/volume] in Blood by Automated count 2022-10-15 20:59:33 1596 Cell/uL F 1100.0-4800.0 Neutrophils [#/volume] in Blood by Automated count 2022-10-15 20:59:33 6903.84 Cell/uL F 2000.0-8800.0 Leukocytes [#/volume] in Blood by Automated count 2022-10-15 20:59:33 9.1 x 10^3 cells/uL F 4.5-11.0 Neutrophils/100 leukocytes in Blood by Automated count 2022-09-23 17:40:54 78.5 % F Eosinophils/100 leukocytes in Blood by Automated count 2022-09-23 17:40:54 2.2 % F Monocytes/100 leukocytes in Blood by Automated count 2022-09-23 17:40:54 3.1 % F Lymphocytes/100 leukocytes in Blood by Automated count 2022-09-23 17:40:54 15.6 % F Basophils/100 leukocytes in Blood by Automated count 2022-09-23 17:40:54 0.5 % F Monocytes [#/volume] in Blood by Automated count 2022-09-23 17:40:54 304.42 Cell/uL F 0.0-1100.0 Basophils [#/volume] in Blood by Automated count 2022-09-23 17:40:54 49.1 Cell/uL F 0.0-400.0 Eosinophils [#/volume] in Blood by Automated count 2022-09-23 17:40:54 216.04 Cell/uL F 0.0-700.0 Lymphocytes [#/volume] in Blood by Automated count 2022-09-23 17:40:54 1531.92 Cell/uL F 1100.0-4800.0 Neutrophils [#/volume] in Blood by Automated count 2022-09-23 17:40:54 7708.7 Cell/uL F 2000.0-8800.0 Leukocytes [#/volume] in Blood by Automated count 2022-09-23 17:40:54 9.8 x 10^3 cells/uL F 4.5-11.0 Basophils/100 leukocytes in Blood by Automated count 2022-09-02 19:13:16 0.6 % F Lymphocytes/100 leukocytes in Blood by Automated count 2022-09-02 19:13:16 18.3 % F Eosinophils/100 leukocytes in Blood by Automated count 2022-09-02 19:13:16 1.6 % F Monocytes/100 leukocytes in Blood by Automated count 2022-09-02 19:13:16 5.3 % F Neutrophils/100 leukocytes in Blood by Automated count 2022-09-02 19:13:16 74.1 % F Monocytes [#/volume] in Blood by Automated count 2022-09-02 19:13:16 601.02 Cell/uL F 0.0-1100.0 Basophils [#/volume] in Blood by Automated count 2022-09-02 19:13:16 68.04 Cell/uL F 0.0-400.0 Eosinophils [#/volume] in Blood by Automated count 2022-09-02 19:13:16 181.44 Cell/uL F 0.0-700.0 Lymphocytes [#/volume] in Blood by Automated count 2022-09-02 19:13:16 2075.22 Cell/uL F 1100.0-4800.0 Neutrophils [#/volume] in Blood by Automated count 2022-09-02 19:13:16 8402.94 Cell/uL F 2000.0-8800.0 Leukocytes [#/volume] in Blood by Automated count 2022-09-02 19:13:16 11.3 x 10^3 cells/uL F 4.5-11.0 Phosphate [Mass/volume] in Urine MineralBone Disorder Description Draw Date Result/Unit Status Ref Range Result Comments CA CORRECTED 2024-09-20 11:11:27 9 mg/dL F CA*PO4 CORRCTD 2024-09-20 11:09:05 83.9 Calc F 21.0-53.0 CA/PHOS PRODUCT 2024-09-20 11:09:05 77.2 Calc F 21.0-53.0 Calcium [Mass/volume] in Serum or Plasma 2024-09-20 07:55:46 8.3 mg/dL F 8.7-10.4 Phosphate [Mass/volume] in Serum or Plasma 2024-09-20 07:55:31 9.3 mg/dL F 2.4-5.1 Parathyrin.intact [Mass/volume] in Serum or Plasma 2024-09-20 02:12:29 424 pg/mL F 18.0-80.0 Magnesium [Mass/volume] in Serum or Plasma 2024-09-20 00:53:17 2.3 mg/dL F 1.3-2.7 Alkaline phosphatase [Enzymatic activity/volume] in Serum or Plasma 2024-09-20 00:53:17 69 U/L F 46.0-116.0 25-Hydroxyvitamin D3+25-Hydroxyvitamin D2 [Mass/volume] in Serum or Plasma 2024-08-22 08:20:21 F Canceled - Specimen not received 5 days past draw date Parathyrin.intact [Mass/volume] in Serum or Plasma 2024-08-18 13:26:23 682 pg/mL F 18.0-80.0 CA CORRECTED 2024-08-18 09:58:09 8.6 mg/dL F CA*PO4 CORRCTD 2024-08-18 09:55:58 100.6 Calc F 21.0-53.0 CA/PHOS PRODUCT 2024-08-18 09:55:58 95.9 Calc F 21.0-53.0 Phosphate [Mass/volume] in Serum or Plasma 2024-08-18 08:22:14 11.7 mg/dL F 2.4-5.1 Calcium [Mass/volume] in Serum or Plasma 2024-08-18 08:22:14 8.2 mg/dL F 8.7-10.4 Magnesium [Mass/volume] in Serum or Plasma 2024-08-18 05:27:26 2.3 mg/dL F 1.3-2.7 Alkaline phosphatase [Enzymatic activity/volume] in Serum or Plasma 2024-08-18 05:27:26 67 U/L F 46.0-116.0 CA CORRECTED 2024-07-20 09:38:35 9.3 mg/dL F CA/PHOS PRODUCT 2024-07-20 09:37:10 73.9 Calc F 21.0-53.0 CA*PO4 CORRCTD 2024-07-20 09:37:10 78 Calc F 21.0-53.0 Phosphate [Mass/volume] in Serum or Plasma 2024-07-20 08:07:22 8.4 mg/dL F 2.4-5.1 Calcium [Mass/volume] in Serum or Plasma 2024-07-20 08:07:18 8.8 mg/dL F 8.7-10.4 Magnesium [Mass/volume] in Serum or Plasma 2024-07-20 00:11:22 2.6 mg/dL F 1.3-2.7 Alkaline phosphatase [Enzymatic activity/volume] in Serum or Plasma 2024-07-20 00:11:22 80 U/L F 46.0-116.0 Parathyrin.intact [Mass/volume] in Serum or Plasma 2024-07-19 21:51:18 379 pg/mL F 18.0-80.0 CA CORRECTED 2024-06-21 08:37:11 9.1 mg/dL F CA/PHOS PRODUCT 2024-06-21 08:36:15 92.2 Calc F 21.0-53.0 CA*PO4 CORRCTD 2024-06-21 08:36:15 96.5 Calc F 21.0-53.0 Calcium [Mass/volume] in Serum or Plasma 2024-06-21 08:24:59 8.7 mg/dL F 8.7-10.4 Magnesium [Mass/volume] in Serum or Plasma 2024-06-20 20:52:22 2.5 mg/dL F 1.3-2.7 Phosphate [Mass/volume] in Serum or Plasma 2024-06-20 20:52:22 10.6 mg/dL F 2.4-5.1 Alkaline phosphatase [Enzymatic activity/volume] in Serum or Plasma 2024-06-20 20:52:22 79 U/L F 46.0-116.0 Parathyrin.intact [Mass/volume] in Serum or Plasma 2024-06-20 18:54:19 546 pg/mL F 18.0-80.0 25-Hydroxyvitamin D3+25-Hydroxyvitamin D2 [Mass/volume] in Serum or Plasma 2024-05-26 07:16:08 6.7 ng/mL F CA CORRECTED 2024-05-26 07:13:40 8.6 mg/dL F CA/PHOS PRODUCT 2024-05-26 06:35:55 109.6 Calc F 21.0-53.0 CA*PO4 CORRCTD 2024-05-26 06:35:55 113.5 Calc F 21.0-53.0 Calcium [Mass/volume] in Serum or Plasma 2024-05-26 06:29:59 8.3 mg/dL F 8.7-10.4 Parathyrin.intact [Mass/volume] in Serum or Plasma 2024-05-25 23:12:21 662 pg/mL F 18.0-80.0 Magnesium [Mass/volume] in Serum or Plasma 2024-05-25 22:39:22 3.2 mg/dL F 1.3-2.7 Phosphate [Mass/volume] in Serum or Plasma 2024-05-25 22:39:22 13.2 mg/dL F 2.4-5.1 Alkaline phosphatase [Enzymatic activity/volume] in Serum or Plasma 2024-05-25 22:39:22 76 U/L F 46.0-116.0 CA CORRECTED 2024-04-23 06:45:36 8.2 mg/dL F CA/PHOS PRODUCT 2024-04-23 06:31:04 90.4 Calc F 21.0-53.0 CA*PO4 CORRCTD 2024-04-23 06:31:04 92.7 Calc F 21.0-53.0 Calcium [Mass/volume] in Serum or Plasma 2024-04-23 06:23:21 8 mg/dL F 8.7-10.4 Parathyrin.intact [Mass/volume] in Serum or Plasma 2024-04-23 00:40:11 826 pg/mL F 18.0-80.0 Magnesium [Mass/volume] in Serum or Plasma 2024-04-22 22:38:20 2.8 mg/dL F 1.3-2.7 Phosphate [Mass/volume] in Serum or Plasma 2024-04-22 22:38:20 11.3 mg/dL F 2.4-5.1 Alkaline phosphatase [Enzymatic activity/volume] in Serum or Plasma 2024-04-22 22:38:20 81 U/L F 46.0-116.0 CA CORRECTED 2024-03-16 21:12:32 8.2 mg/dL F CA/PHOS PRODUCT 2024-03-16 17:30:10 103.2 Calc F 21.0-53.0 CA*PO4 CORRCTD 2024-03-16 17:30:10 105.8 Calc F 21.0-53.0 Calcium [Mass/volume] in Serum or Plasma 2024-03-16 06:33:10 8 mg/dL F 8.7-10.4 Parathyrin.intact [Mass/volume] in Serum or Plasma 2024-03-16 02:09:34 637 pg/mL F 18.0-80.0 Magnesium [Mass/volume] in Serum or Plasma 2024-03-15 15:28:30 3 mg/dL F 1.3-2.7 Phosphate [Mass/volume] in Serum or Plasma 2024-03-15 15:28:30 12.9 mg/dL F 2.4-5.1 Alkaline phosphatase [Enzymatic activity/volume] in Serum or Plasma 2024-03-15 15:28:30 71 U/L F 46.0-116.0 Parathyrin.intact [Mass/volume] in Serum or Plasma 2024-02-24 06:58:29 933 pg/mL F 18.0-80.0 25-Hydroxyvitamin D3+25-Hydroxyvitamin D2 [Mass/volume] in Serum or Plasma 2024-02-24 06:56:07 7.1 ng/mL F CA CORRECTED 2024-02-23 18:27:42 8 mg/dL F CA*PO4 CORRCTD 2024-02-23 18:25:20 104.8 Calc F 21.0-53.0 CA/PHOS PRODUCT 2024-02-23 18:25:20 103.5 Calc F 21.0-53.0 Calcium [Mass/volume] in Serum or Plasma 2024-02-23 18:24:36 7.9 mg/dL F 8.7-10.4 Magnesium [Mass/volume] in Serum or Plasma 2024-02-23 15:28:33 3 mg/dL F 1.3-2.7 Phosphate [Mass/volume] in Serum or Plasma 2024-02-23 15:28:33 13.1 mg/dL F 2.4-5.1 Alkaline phosphatase [Enzymatic activity/volume] in Serum or Plasma 2024-02-23 15:28:33 77 U/L F 46.0-116.0 CA CORRECTED 2024-01-18 19:28:46 8.2 mg/dL F CA/PHOS PRODUCT 2024-01-16 04:36:07 80.4 Calc F 21.0-53.0 CA*PO4 CORRCTD 2024-01-16 04:36:07 80.4 Calc F 21.0-53.0 Calcium [Mass/volume] in Serum or Plasma 2024-01-16 04:32:18 8.2 mg/dL F 8.7-10.4 Parathyrin.intact [Mass/volume] in Serum or Plasma 2024-01-16 00:54:26 892 pg/mL F 18.0-80.0 Magnesium [Mass/volume] in Serum or Plasma 2024-01-15 17:25:30 3.2 mg/dL F 1.3-2.7 Phosphate [Mass/volume] in Serum or Plasma 2024-01-15 17:25:30 9.8 mg/dL F 2.4-5.1 Alkaline phosphatase [Enzymatic activity/volume] in Serum or Plasma 2024-01-15 17:25:30 77 U/L F 46.0-116.0 CA CORRECTED 2023-12-12 02:43:08 8.9 mg/dL F Parathyrin.intact [Mass/volume] in Serum or Plasma 2023-12-12 02:41:54 408 pg/mL F 18.0-80.0 CA*PO4 CORRCTD 2023-12-12 02:38:55 84.6 Calc F 21.0-53.0 CA/PHOS PRODUCT 2023-12-12 02:38:55 83.6 Calc F 21.0-53.0 Calcium [Mass/volume] in Serum or Plasma 2023-12-12 02:36:05 8.8 mg/dL F 8.7-10.4 Magnesium [Mass/volume] in Serum or Plasma 2023-12-11 19:37:29 2.8 mg/dL F 1.3-2.7 Phosphate [Mass/volume] in Serum or Plasma 2023-12-11 19:37:29 9.5 mg/dL F 2.4-5.1 Alkaline phosphatase [Enzymatic activity/volume] in Serum or Plasma 2023-12-11 19:37:29 69 U/L F 46.0-116.0 CA CORRECTED 2023-11-17 07:42:36 8.7 mg/dL F CA/PHOS PRODUCT 2023-11-17 07:36:24 70.5 Calc F 21.0-53.0 CA*PO4 CORRCTD 2023-11-17 07:36:24 70.5 Calc F 21.0-53.0 Calcium [Mass/volume] in Serum or Plasma 2023-11-17 07:32:49 8.7 mg/dL F 8.7-10.4 Parathyrin.intact [Mass/volume] in Serum or Plasma 2023-11-17 07:08:35 526 pg/mL F 18.0-80.0 25-Hydroxyvitamin D3+25-Hydroxyvitamin D2 [Mass/volume] in Serum or Plasma 2023-11-17 07:08:01 13.4 ng/mL F Magnesium [Mass/volume] in Serum or Plasma 2023-11-16 23:39:35 2.6 mg/dL F 1.3-2.7 Phosphate [Mass/volume] in Serum or Plasma 2023-11-16 23:39:35 8.1 mg/dL F 2.4-5.1 Alkaline phosphatase [Enzymatic activity/volume] in Serum or Plasma 2023-11-16 23:39:35 69 U/L F 46.0-116.0 Parathyrin.intact [Mass/volume] in Serum or Plasma 2023-10-17 07:24:11 592 pg/mL F 18.0-80.0 CA CORRECTED 2023-10-17 07:15:03 8.1 mg/dL F CA*PO4 CORRCTD 2023-10-17 07:01:35 64 Calc F 21.0-53.0 CA/PHOS PRODUCT 2023-10-17 07:01:35 63.2 Calc F 21.0-53.0 Calcium [Mass/volume] in Serum or Plasma 2023-10-17 06:57:19 8 mg/dL F 8.7-10.4 Magnesium [Mass/volume] in Serum or Plasma 2023-10-16 23:56:58 2.9 mg/dL F 1.3-2.7 Phosphate [Mass/volume] in Serum or Plasma 2023-10-16 23:56:51 7.9 mg/dL F 2.4-5.1 Alkaline phosphatase [Enzymatic activity/volume] in Serum or Plasma 2023-10-16 23:56:51 69 U/L F 46.0-116.0 CA CORRECTED 2023-09-12 07:50:26 8.4 mg/dL F CA/PHOS PRODUCT 2023-09-12 07:46:12 73.1 Calc F 21.0-53.0 CA*PO4 CORRCTD 2023-09-12 07:46:12 73.1 Calc F 21.0-53.0 Calcium [Mass/volume] in Serum or Plasma 2023-09-12 07:44:01 8.4 mg/dL F 8.7-10.4 Parathyrin.intact [Mass/volume] in Serum or Plasma 2023-09-12 01:54:25 495 pg/mL F 18.0-80.0 Magnesium [Mass/volume] in Serum or Plasma 2023-09-11 21:15:47 3.6 mg/dL F 1.3-2.7 Phosphate [Mass/volume] in Serum or Plasma 2023-09-11 21:15:47 8.7 mg/dL F 2.4-5.1 Alkaline phosphatase [Enzymatic activity/volume] in Serum or Plasma 2023-09-11 21:15:47 79 U/L F 46.0-116.0 Parathyrin.intact [Mass/volume] in Serum or Plasma 2023-08-19 20:15:10 382 pg/mL F 18.0-80.0 CA CORRECTED 2023-08-19 11:17:09 8.4 mg/dL F CA*PO4 CORRCTD 2023-08-19 08:44:08 62.2 Calc F 21.0-53.0 CA/PHOS PRODUCT 2023-08-19 08:44:08 62.2 Calc F 21.0-53.0 Calcium [Mass/volume] in Serum or Plasma 2023-08-19 08:33:15 8.4 mg/dL F 8.7-10.4 25-Hydroxyvitamin D3+25-Hydroxyvitamin D2 [Mass/volume] in Serum or Plasma 2023-08-19 07:15:46 13.3 ng/mL F Magnesium [Mass/volume] in Serum or Plasma 2023-08-19 06:32:05 3.3 mg/dL F 1.3-2.7 Phosphate [Mass/volume] in Serum or Plasma 2023-08-19 06:32:05 7.4 mg/dL F 2.4-5.1 Alkaline phosphatase [Enzymatic activity/volume] in Serum or Plasma 2023-08-19 06:32:05 84 U/L F 46.0-116.0 CA CORRECTED 2023-07-17 09:45:48 8.3 mg/dL F CA/PHOS PRODUCT 2023-07-17 08:34:24 60.6 Calc F 21.0-53.0 CA*PO4 CORRCTD 2023-07-17 08:34:24 60.6 Calc F 21.0-53.0 Calcium [Mass/volume] in Serum or Plasma 2023-07-17 08:16:52 8.3 mg/dL F 8.7-10.4 Parathyrin.intact [Mass/volume] in Serum or Plasma 2023-07-17 07:50:08 406 pg/mL F 18.0-80.0 Magnesium [Mass/volume] in Serum or Plasma 2023-07-16 20:33:34 2.6 mg/dL F 1.3-2.7 Phosphate [Mass/volume] in Serum or Plasma 2023-07-16 20:33:34 7.3 mg/dL F 2.4-5.1 Alkaline phosphatase [Enzymatic activity/volume] in Serum or Plasma 2023-07-16 20:33:34 90 U/L F 46.0-116.0 CA*PO4 CORRCTD 2023-06-13 06:22:17 32.8 Calc F 21.0-53.0 CA/PHOS PRODUCT 2023-06-13 06:22:17 32.4 Calc F 21.0-53.0 Calcium [Mass/volume] in Serum or Plasma 2023-06-13 06:19:12 8.3 mg/dL F 8.7-10.4 CA CORRECTED 2023-06-13 05:25:14 8.4 mg/dL F Parathyrin.intact [Mass/volume] in Serum or Plasma 2023-06-13 02:37:12 270 pg/mL F 18.0-80.0 Magnesium [Mass/volume] in Serum or Plasma 2023-06-12 16:10:37 2.8 mg/dL F 1.3-2.7 Phosphate [Mass/volume] in Serum or Plasma 2023-06-12 16:10:37 3.9 mg/dL F 2.4-5.1 Alkaline phosphatase [Enzymatic activity/volume] in Serum or Plasma 2023-06-12 16:10:37 86 U/L F 46.0-116.0 CA CORRECTED 2023-04-23 07:53:27 7.8 mg/dL F CA*PO4 CORRCTD 2023-04-23 07:21:58 45.2 Calc F 21.0-53.0 CA/PHOS PRODUCT 2023-04-23 07:21:58 45.2 Calc F 21.0-53.0 Parathyrin.intact [Mass/volume] in Serum or Plasma 2023-04-23 07:12:42 414 pg/mL F 18.0-80.0 Calcium [Mass/volume] in Serum or Plasma 2023-04-23 06:55:44 7.8 mg/dL F 8.7-10.4 Magnesium [Mass/volume] in Serum or Plasma 2023-04-23 04:06:32 2.6 mg/dL F 1.3-2.7 Phosphate [Mass/volume] in Serum or Plasma 2023-04-23 04:06:32 5.8 mg/dL F 2.4-5.1 Alkaline phosphatase [Enzymatic activity/volume] in Serum or Plasma 2023-04-23 04:06:32 77 U/L F 46.0-116.0 CA CORRECTED 2023-03-17 02:35:42 8.3 mg/dL F CA*PO4 CORRCTD 2023-03-17 02:33:19 50.6 Calc F 21.0-53.0 CA/PHOS PRODUCT 2023-03-17 02:33:19 50 Calc F 21.0-53.0 Calcium [Mass/volume] in Serum or Plasma 2023-03-17 02:29:58 8.2 mg/dL F 8.7-10.4 Parathyrin.intact [Mass/volume] in Serum or Plasma 2023-03-16 23:03:39 338 pg/mL F 18.0-80.0 Magnesium [Mass/volume] in Serum or Plasma 2023-03-16 16:47:36 2.7 mg/dL F 1.3-2.7 Phosphate [Mass/volume] in Serum or Plasma 2023-03-16 16:47:36 6.1 mg/dL F 2.4-5.1 Alkaline phosphatase [Enzymatic activity/volume] in Serum or Plasma 2023-03-16 16:47:36 93 U/L F 46.0-116.0 CA CORRECTED 2023-02-21 05:37:45 8.7 mg/dL F CA*PO4 CORRCTD 2023-02-21 05:35:22 50.5 Calc F 21.0-53.0 CA/PHOS PRODUCT 2023-02-21 05:35:22 50.5 Calc F 21.0-53.0 Calcium [Mass/volume] in Serum or Plasma 2023-02-21 05:34:13 8.7 mg/dL F 8.7-10.4 Parathyrin.intact [Mass/volume] in Serum or Plasma 2023-02-20 19:22:24 409 pg/mL F 18.0-80.0 25-Hydroxyvitamin D3+25-Hydroxyvitamin D2 [Mass/volume] in Serum or Plasma 2023-02-20 16:03:20 16.2 ng/mL F Magnesium [Mass/volume] in Serum or Plasma 2023-02-20 15:23:16 2.6 mg/dL F 1.3-2.7 Phosphate [Mass/volume] in Serum or Plasma 2023-02-20 15:23:16 5.8 mg/dL F 2.4-5.1 Alkaline phosphatase [Enzymatic activity/volume] in Serum or Plasma 2023-02-20 15:23:16 96 U/L F 46.0-116.0 CA CORRECTED 2023-01-15 07:35:15 8.3 mg/dL F CA*PO4 CORRCTD 2023-01-15 06:44:53 64.7 Calc F 21.0-53.0 CA/PHOS PRODUCT 2023-01-15 06:44:53 64.7 Calc F 21.0-53.0 Calcium [Mass/volume] in Serum or Plasma 2023-01-15 06:35:35 8.3 mg/dL F 8.7-10.4 Parathyrin.intact [Mass/volume] in Serum or Plasma 2023-01-15 03:26:11 364 pg/mL F 18.0-80.0 Magnesium [Mass/volume] in Serum or Plasma 2023-01-14 23:48:14 2.9 mg/dL F 1.3-2.7 Phosphate [Mass/volume] in Serum or Plasma 2023-01-14 23:48:14 7.8 mg/dL F 2.4-5.1 Alkaline phosphatase [Enzymatic activity/volume] in Serum or Plasma 2023-01-14 23:48:14 89 U/L F 46.0-116.0 CA CORRECTED 2022-12-13 01:49:20 8.3 mg/dL F CA/PHOS PRODUCT 2022-12-12 05:56:40 36.1 Calc F 21.0-53.0 CA*PO4 CORRCTD 2022-12-12 05:56:40 36.5 Calc F 21.0-53.0 Calcium [Mass/volume] in Serum or Plasma 2022-12-12 05:39:18 8.2 mg/dL F 8.7-10.4 Parathyrin.intact [Mass/volume] in Serum or Plasma 2022-12-12 03:56:10 319 pg/mL F 18.0-80.0 Magnesium [Mass/volume] in Serum or Plasma 2022-12-12 02:02:27 2.5 mg/dL F 1.3-2.7 Phosphate [Mass/volume] in Serum or Plasma 2022-12-12 02:02:27 4.4 mg/dL F 2.4-5.1 Alkaline phosphatase [Enzymatic activity/volume] in Serum or Plasma 2022-12-12 02:02:27 97 U/L F 46.0-116.0 CA CORRECTED 2022-11-15 04:56:45 9.1 mg/dL F CA/PHOS PRODUCT 2022-11-15 04:43:15 49.1 Calc F 21.0-53.0 CA*PO4 CORRCTD 2022-11-15 04:43:15 49.1 Calc F 21.0-53.0 Calcium [Mass/volume] in Serum or Plasma 2022-11-15 04:29:52 9.1 mg/dL F 8.7-10.4 Parathyrin.intact [Mass/volume] in Serum or Plasma 2022-11-15 02:17:07 251 pg/mL F 18.0-80.0 Magnesium [Mass/volume] in Serum or Plasma 2022-11-15 01:50:18 2.6 mg/dL F 1.3-2.7 Phosphate [Mass/volume] in Serum or Plasma 2022-11-15 01:50:18 5.4 mg/dL F 2.4-5.1 25-Hydroxyvitamin D3+25-Hydroxyvitamin D2 [Mass/volume] in Serum or Plasma 2022-11-15 01:50:18 24.1 ng/mL F 30.0-100.0 Alkaline phosphatase [Enzymatic activity/volume] in Serum or Plasma 2022-11-15 01:50:18 96 U/L F 46.0-116.0 CA CORRECTED 2022-10-16 10:27:25 8.3 mg/dL F CA*PO4 CORRCTD 2022-10-16 08:41:36 65.6 Calc F 21.0-53.0 CA/PHOS PRODUCT 2022-10-16 08:41:36 65.6 Calc F 21.0-53.0 Calcium [Mass/volume] in Serum or Plasma 2022-10-16 08:32:11 8.3 mg/dL F 8.7-10.4 Parathyrin.intact [Mass/volume] in Serum or Plasma 2022-10-15 20:00:30 304 pg/mL F 18.0-80.0 Magnesium [Mass/volume] in Serum or Plasma 2022-10-15 18:56:41 2.2 mg/dL F 1.3-2.7 Phosphate [Mass/volume] in Serum or Plasma 2022-10-15 18:56:41 7.9 mg/dL F 2.4-5.1 Alkaline phosphatase [Enzymatic activity/volume] in Serum or Plasma 2022-10-15 18:56:41 87 U/L F 46.0-116.0 CA CORRECTED 2022-09-24 09:11:25 8.2 mg/dL F CA/PHOS PRODUCT 2022-09-23 20:20:31 65.6 Calc F 21.0-53.0 CA*PO4 CORRCTD 2022-09-23 20:20:31 65.6 Calc F 21.0-53.0 Calcium [Mass/volume] in Serum or Plasma 2022-09-23 19:58:51 8.2 mg/dL F 8.7-10.4 Parathyrin.intact [Mass/volume] in Serum or Plasma 2022-09-23 19:33:57 236 pg/mL F 18.0-80.0 Magnesium [Mass/volume] in Serum or Plasma 2022-09-23 17:08:48 2.7 mg/dL F 1.3-2.7 Phosphate [Mass/volume] in Serum or Plasma 2022-09-23 17:08:48 8 mg/dL F 2.4-5.1 Alkaline phosphatase [Enzymatic activity/volume] in Serum or Plasma 2022-09-23 17:08:48 81 U/L F 46.0-116.0 CA CORRECTED 2022-09-03 12:22:30 9.6 mg/dL F CA/PHOS PRODUCT 2022-09-03 07:05:11 54.7 Calc F 21.0-53.0 CA*PO4 CORRCTD 2022-09-03 07:05:11 54.7 Calc F 21.0-53.0 Calcium [Mass/volume] in Serum or Plasma 2022-09-03 06:40:41 9.6 mg/dL F 8.7-10.4 25-Hydroxyvitamin D3+25-Hydroxyvitamin D2 [Mass/volume] in Serum or Plasma 2022-09-02 21:41:19 26.1 ng/mL F 30.0-100.0 Parathyrin.intact [Mass/volume] in Serum or Plasma 2022-09-02 18:21:25 225 pg/mL F 18.0-80.0 Magnesium [Mass/volume] in Serum or Plasma 2022-09-02 16:46:33 2.5 mg/dL F 1.3-2.7 Phosphate [Mass/volume] in Serum or Plasma 2022-09-02 16:46:33 5.7 mg/dL F 2.4-5.1 Alkaline phosphatase [Enzymatic activity/volume] in Serum or Plasma 2022-09-02 16:46:33 70 U/L F 46.0-116.0 CA CORRECTED 2022-07-31 08:06:55 8.3 mg/dL F CA*PO4 CORRCTD 2022-07-31 06:29:32 54.8 Calc F 21.0-53.0 CA/PHOS PRODUCT 2022-07-31 06:29:32 54.8 Calc F 21.0-53.0 Calcium [Mass/volume] in Serum or Plasma 2022-07-31 06:21:50 8.3 mg/dL F 8.7-10.4 Phosphate [Mass/volume] in Serum or Plasma 2022-07-30 21:21:50 6.6 mg/dL F 2.4-5.1 Parathyrin.intact [Mass/volume] in Serum or Plasma 2022-07-30 20:58:53 441 pg/mL F 18.0-80.0 Modality Description Draw Date Result/Unit Status Ref Range Result Comments % DEXTROSE 2022-11-13 20:57:42 2.5 % F Nutrition Description Draw Date Result/Unit Status Ref Range Result Comments Potassium [Moles/volume] in Serum or Plasma 2024-09-20 07:55:31 3.9 mEq/L F 3.5-5.5 GLOBULIN 2024-09-20 00:54:00 3.7 g/dL F 0.9-5.0 A/G RATIO 2024-09-20 00:54:00 0.8 Calc F 1.0-2.5 Lactate dehydrogenase [Enzymatic activity/volume] in Serum or Plasma 2024-09-20 00:53:17 195 U/L F 120.0-246.0 Bicarbonate [Moles/volume] in Serum or Plasma 2024-09-20 00:53:17 24 mEq/L F 20.0-31.0 Albumin [Mass/volume] in Serum or Plasma by Bromocresol green (BCG) dye binding method 2024-09-20 00:53:17 3.1 g/dL F 3.4-4.8 Protein [Mass/volume] in Serum or Plasma 2024-09-20 00:53:17 6.8 g/dL F 5.7-8.2 Glucose [Mass/volume] in Serum or Plasma 2024-09-20 00:53:17 77 mg/dL F 70.0-99.0 Potassium [Moles/volume] in Serum or Plasma 2024-08-18 08:22:14 4.3 mEq/L F 3.5-5.5 VLDL-CHOL(CALC) 2024-08-18 05:29:13 29 mg/dL F 0.0-29.0 LDL-CHOLESTEROL 2024-08-18 05:29:13 81 mg/dL F 0.0-99.0 GLOBULIN 2024-08-18 05:29:13 3.6 g/dL F 0.9-5.0 A/G RATIO 2024-08-18 05:29:13 1 Calc F 1.0-2.5 CHOL/HDL RATIO 2024-08-18 05:29:13 4.8 Calc F 3.3-5.0 Cholesterol [Mass/volume] in Serum or Plasma 2024-08-18 05:27:26 139 mg/dL F 0.0-199.0 Protein [Mass/volume] in Serum or Plasma 2024-08-18 05:27:26 144 mg/dL F 0.0-149.0 Lactate dehydrogenase [Enzymatic activity/volume] in Serum or Plasma 2024-08-18 05:27:26 195 U/L F 120.0-246.0 Bicarbonate [Moles/volume] in Serum or Plasma 2024-08-18 05:27:26 24 mEq/L F 20.0-31.0 Albumin [Mass/volume] in Serum or Plasma by Bromocresol green (BCG) dye binding method 2024-08-18 05:27:26 3.5 g/dL F 3.4-4.8 Cholesterol in HDL [Mass/volume] in Serum or Plasma 2024-08-18 05:27:26 29 mg/dL F 40.0-60.0 Protein [Mass/volume] in Serum or Plasma 2024-08-18 05:27:26 7.1 g/dL F 5.7-8.2 Glucose [Mass/volume] in Serum or Plasma 2024-08-18 05:27:26 86 mg/dL F 70.0-99.0 Potassium [Moles/volume] in Serum or Plasma 2024-07-20 08:07:18 4.1 mEq/L F 3.5-5.5 GLOBULIN 2024-07-20 00:12:00 3.7 g/dL F 0.9-5.0 A/G RATIO 2024-07-20 00:12:00 0.9 Calc F 1.0-2.5 Protein [Mass/volume] in Serum or Plasma 2024-07-20 00:11:22 7.1 g/dL F 5.7-8.2 Glucose [Mass/volume] in Serum or Plasma 2024-07-20 00:11:22 92 mg/dL F 70.0-99.0 Lactate dehydrogenase [Enzymatic activity/volume] in Serum or Plasma 2024-07-20 00:11:22 232 U/L F 120.0-246.0 Bicarbonate [Moles/volume] in Serum or Plasma 2024-07-20 00:11:22 22 mEq/L F 20.0-31.0 Albumin [Mass/volume] in Serum or Plasma by Bromocresol green (BCG) dye binding method 2024-07-20 00:11:22 3.4 g/dL F 3.4-4.8 Potassium [Moles/volume] in Serum or Plasma 2024-06-21 08:24:59 3.9 mEq/L F 3.5-5.5 GLOBULIN 2024-06-20 20:53:23 3.5 g/dL F 0.9-5.0 A/G RATIO 2024-06-20 20:53:23 1 Calc F 1.0-2.5 Lactate dehydrogenase [Enzymatic activity/volume] in Serum or Plasma 2024-06-20 20:52:22 235 U/L F 120.0-246.0 Bicarbonate [Moles/volume] in Serum or Plasma 2024-06-20 20:52:22 20 mEq/L F 20.0-31.0 Albumin [Mass/volume] in Serum or Plasma by Bromocresol green (BCG) dye binding method 2024-06-20 20:52:22 3.5 g/dL F 3.4-4.8 Protein [Mass/volume] in Serum or Plasma 2024-06-20 20:52:22 7 g/dL F 5.7-8.2 Glucose [Mass/volume] in Serum or Plasma 2024-06-20 20:52:22 82 mg/dL F 70.0-99.0 Potassium [Moles/volume] in Serum or Plasma 2024-05-26 06:29:59 4.6 mEq/L F 3.5-5.5 A/G RATIO 2024-05-25 22:40:31 1 Calc F 1.0-2.5 GLOBULIN 2024-05-25 22:40:31 3.7 g/dL F 0.9-5.0 Lactate dehydrogenase [Enzymatic activity/volume] in Serum or Plasma 2024-05-25 22:39:22 219 U/L F 120.0-246.0 Bicarbonate [Moles/volume] in Serum or Plasma 2024-05-25 22:39:22 19 mEq/L F 20.0-31.0 Albumin [Mass/volume] in Serum or Plasma by Bromocresol green (BCG) dye binding method 2024-05-25 22:39:22 3.6 g/dL F 3.4-4.8 Protein [Mass/volume] in Serum or Plasma 2024-05-25 22:39:22 7.3 g/dL F 5.7-8.2 Glucose [Mass/volume] in Serum or Plasma 2024-05-25 22:39:22 87 mg/dL F 70.0-99.0 Potassium [Moles/volume] in Serum or Plasma 2024-04-23 06:23:21 4.4 mEq/L F 3.5-5.5 GLOBULIN 2024-04-22 22:38:51 4 g/dL F 0.9-5.0 A/G RATIO 2024-04-22 22:38:51 0.9 Calc F 1.0-2.5 Lactate dehydrogenase [Enzymatic activity/volume] in Serum or Plasma 2024-04-22 22:38:20 234 U/L F 120.0-246.0 Bicarbonate [Moles/volume] in Serum or Plasma 2024-04-22 22:38:20 18 mEq/L F 20.0-31.0 Albumin [Mass/volume] in Serum or Plasma by Bromocresol green (BCG) dye binding method 2024-04-22 22:38:20 3.7 g/dL F 3.4-4.8 Protein [Mass/volume] in Serum or Plasma 2024-04-22 22:38:20 7.7 g/dL F 5.7-8.2 Glucose [Mass/volume] in Serum or Plasma 2024-04-22 22:38:20 103 mg/dL F 70.0-99.0 Potassium [Moles/volume] in Serum or Plasma 2024-03-16 06:33:10 4.8 mEq/L F 3.5-5.5 GLOBULIN 2024-03-15 15:28:46 3.9 g/dL F 0.9-5.0 A/G RATIO 2024-03-15 15:28:46 1 Calc F 1.0-2.5 Lactate dehydrogenase [Enzymatic activity/volume] in Serum or Plasma 2024-03-15 15:28:30 191 U/L F 120.0-246.0 Bicarbonate [Moles/volume] in Serum or Plasma 2024-03-15 15:28:30 18 mEq/L F 20.0-31.0 Albumin [Mass/volume] in Serum or Plasma by Bromocresol green (BCG) dye binding method 2024-03-15 15:28:30 3.8 g/dL F 3.4-4.8 Protein [Mass/volume] in Serum or Plasma 2024-03-15 15:28:30 7.7 g/dL F 5.7-8.2 Glucose [Mass/volume] in Serum or Plasma 2024-03-15 15:28:30 94 mg/dL F 70.0-99.0 Potassium [Moles/volume] in Serum or Plasma 2024-02-23 18:24:36 4.6 mEq/L F 3.5-5.5 VLDL-CHOL(CALC) 2024-02-23 15:28:58 52 mg/dL F 0.0-29.0 LDL-CHOLESTEROL 2024-02-23 15:28:58 102 mg/dL F 0.0-99.0 GLOBULIN 2024-02-23 15:28:58 3.8 g/dL F 0.9-5.0 A/G RATIO 2024-02-23 15:28:58 1 Calc F 1.0-2.5 CHOL/HDL RATIO 2024-02-23 15:28:58 5.8 Calc F 3.3-5.0 Protein [Mass/volume] in Serum or Plasma 2024-02-23 15:28:33 260 mg/dL F 0.0-149.0 Cholesterol [Mass/volume] in Serum or Plasma 2024-02-23 15:28:33 186 mg/dL F 0.0-199.0 Lactate dehydrogenase [Enzymatic activity/volume] in Serum or Plasma 2024-02-23 15:28:33 187 U/L F 120.0-246.0 Bicarbonate [Moles/volume] in Serum or Plasma 2024-02-23 15:28:33 21 mEq/L F 20.0-31.0 Albumin [Mass/volume] in Serum or Plasma by Bromocresol green (BCG) dye binding method 2024-02-23 15:28:33 3.9 g/dL F 3.4-4.8 Cholesterol in HDL [Mass/volume] in Serum or Plasma 2024-02-23 15:28:33 32 mg/dL F 40.0-60.0 Protein [Mass/volume] in Serum or Plasma 2024-02-23 15:28:33 7.7 g/dL F 5.7-8.2 Glucose [Mass/volume] in Serum or Plasma 2024-02-23 15:28:33 146 mg/dL F 70.0-99.0 A/G RATIO 2024-01-16 04:36:07 1.1 Calc F 1.0-2.5 GLOBULIN 2024-01-16 04:36:07 3.9 g/dL F 0.9-5.0 Potassium [Moles/volume] in Serum or Plasma 2024-01-16 04:32:18 4.9 mEq/L F 3.5-5.5 Lactate dehydrogenase [Enzymatic activity/volume] in Serum or Plasma 2024-01-15 17:25:30 221 U/L F 120.0-246.0 Bicarbonate [Moles/volume] in Serum or Plasma 2024-01-15 17:25:30 16 mEq/L F 20.0-31.0 Albumin [Mass/volume] in Serum or Plasma by Bromocresol green (BCG) dye binding method 2024-01-15 17:25:30 4.2 g/dL F 3.4-4.8 Protein [Mass/volume] in Serum or Plasma 2024-01-15 17:25:30 8.1 g/dL F 5.7-8.2 Glucose [Mass/volume] in Serum or Plasma 2024-01-15 17:25:30 120 mg/dL F 70.0-99.0 Potassium [Moles/volume] in Serum or Plasma 2023-12-12 02:36:05 5 mEq/L F 3.5-5.5 GLOBULIN 2023-12-11 19:38:04 3.6 g/dL F 0.9-5.0 A/G RATIO 2023-12-11 19:38:04 1.1 Calc F 1.0-2.5 Lactate dehydrogenase [Enzymatic activity/volume] in Serum or Plasma 2023-12-11 19:37:29 167 U/L F 120.0-246.0 Bicarbonate [Moles/volume] in Serum or Plasma 2023-12-11 19:37:29 21 mEq/L F 20.0-31.0 Albumin [Mass/volume] in Serum or Plasma by Bromocresol green (BCG) dye binding method 2023-12-11 19:37:29 3.9 g/dL F 3.4-4.8 Protein [Mass/volume] in Serum or Plasma 2023-12-11 19:37:29 7.5 g/dL F 5.7-8.2 Glucose [Mass/volume] in Serum or Plasma 2023-12-11 19:37:29 218 mg/dL F 70.0-99.0 Potassium [Moles/volume] in Serum or Plasma 2023-11-17 07:32:37 4.4 mEq/L F 3.5-5.5 GLOBULIN 2023-11-16 23:43:40 3.7 g/dL F 0.9-5.0 A/G RATIO 2023-11-16 23:43:40 1.1 Calc F 1.0-2.5 Lactate dehydrogenase [Enzymatic activity/volume] in Serum or Plasma 2023-11-16 23:39:35 156 U/L F 120.0-246.0 Bicarbonate [Moles/volume] in Serum or Plasma 2023-11-16 23:39:35 23 mEq/L F 20.0-31.0 Albumin [Mass/volume] in Serum or Plasma by Bromocresol green (BCG) dye binding method 2023-11-16 23:39:35 4 g/dL F 3.4-4.8 Protein [Mass/volume] in Serum or Plasma 2023-11-16 23:39:35 7.7 g/dL F 5.7-8.2 Glucose [Mass/volume] in Serum or Plasma 2023-11-16 23:39:35 150 mg/dL F 70.0-99.0 Potassium [Moles/volume] in Serum or Plasma 2023-10-17 06:57:19 4.6 mEq/L F 3.5-5.5 A/G RATIO 2023-10-16 23:57:44 1 Calc F 1.0-2.5 GLOBULIN 2023-10-16 23:57:44 4 g/dL F 0.9-5.0 Lactate dehydrogenase [Enzymatic activity/volume] in Serum or Plasma 2023-10-16 23:56:58 178 U/L F 120.0-246.0 Albumin [Mass/volume] in Serum or Plasma by Bromocresol green (BCG) dye binding method 2023-10-16 23:56:58 3.9 g/dL F 3.4-4.8 Bicarbonate [Moles/volume] in Serum or Plasma 2023-10-16 23:56:51 21 mEq/L F 20.0-31.0 Protein [Mass/volume] in Serum or Plasma 2023-10-16 23:56:51 7.9 g/dL F 5.7-8.2 Glucose [Mass/volume] in Serum or Plasma 2023-10-16 23:56:51 132 mg/dL F 70.0-99.0 Potassium [Moles/volume] in Serum or Plasma 2023-09-12 07:44:05 5.2 mEq/L F 3.5-5.5 GLOBULIN 2023-09-11 21:15:54 4 g/dL F 0.9-5.0 A/G RATIO 2023-09-11 21:15:54 1.1 Calc F 1.0-2.5 Bicarbonate [Moles/volume] in Serum or Plasma 2023-09-11 21:15:47 21 mEq/L F 20.0-31.0 Albumin [Mass/volume] in Serum or Plasma by Bromocresol green (BCG) dye binding method 2023-09-11 21:15:47 4.4 g/dL F 3.4-4.8 Protein [Mass/volume] in Serum or Plasma 2023-09-11 21:15:47 8.4 g/dL F 5.7-8.2 Glucose [Mass/volume] in Serum or Plasma 2023-09-11 21:15:47 104 mg/dL F 70.0-99.0 Lactate dehydrogenase [Enzymatic activity/volume] in Serum or Plasma 2023-09-11 21:15:46 170 U/L F 120.0-246.0 Potassium [Moles/volume] in Serum or Plasma 2023-08-19 08:33:09 4.6 mEq/L F 3.5-5.5 VLDL-CHOL(CALC) 2023-08-19 06:32:20 67 mg/dL F 0.0-29.0 LDL-CHOLESTEROL 2023-08-19 06:32:20 114 mg/dL F 0.0-99.0 GLOBULIN 2023-08-19 06:32:20 4.1 g/dL F 0.9-5.0 A/G RATIO 2023-08-19 06:32:20 1 Calc F 1.0-2.5 CHOL/HDL RATIO 2023-08-19 06:32:20 7.2 Calc F 3.3-5.0 Protein [Mass/volume] in Serum or Plasma 2023-08-19 06:32:05 334 mg/dL F 0.0-149.0 Cholesterol [Mass/volume] in Serum or Plasma 2023-08-19 06:32:05 210 mg/dL F 0.0-199.0 Lactate dehydrogenase [Enzymatic activity/volume] in Serum or Plasma 2023-08-19 06:32:05 160 U/L F 120.0-246.0 Bicarbonate [Moles/volume] in Serum or Plasma 2023-08-19 06:32:05 20 mEq/L F 20.0-31.0 Albumin [Mass/volume] in Serum or Plasma by Bromocresol green (BCG) dye binding method 2023-08-19 06:32:05 4.2 g/dL F 3.4-4.8 Cholesterol in HDL [Mass/volume] in Serum or Plasma 2023-08-19 06:32:05 29 mg/dL F 40.0-60.0 Protein [Mass/volume] in Serum or Plasma 2023-08-19 06:32:05 8.3 g/dL F 5.7-8.2 Glucose [Mass/volume] in Serum or Plasma 2023-08-19 06:32:05 180 mg/dL F 70.0-99.0 Potassium [Moles/volume] in Serum or Plasma 2023-07-17 08:16:52 4.5 mEq/L F 3.5-5.5 GLOBULIN 2023-07-16 20:33:47 4.1 g/dL F 0.9-5.0 A/G RATIO 2023-07-16 20:33:47 1 Calc F 1.0-2.5 Lactate dehydrogenase [Enzymatic activity/volume] in Serum or Plasma 2023-07-16 20:33:34 163 U/L F 120.0-246.0 Bicarbonate [Moles/volume] in Serum or Plasma 2023-07-16 20:33:34 23 mEq/L F 20.0-31.0 Albumin [Mass/volume] in Serum or Plasma by Bromocresol green (BCG) dye binding method 2023-07-16 20:33:34 4.1 g/dL F 3.4-4.8 Protein [Mass/volume] in Serum or Plasma 2023-07-16 20:33:34 8.2 g/dL F 5.7-8.2 Glucose [Mass/volume] in Serum or Plasma 2023-07-16 20:33:34 142 mg/dL F 70.0-99.0 A/G RATIO 2023-06-12 16:11:15 1.1 Calc F 1.0-2.5 GLOBULIN 2023-06-12 16:11:15 3.6 g/dL F 0.9-5.0 Lactate dehydrogenase [Enzymatic activity/volume] in Serum or Plasma 2023-06-12 16:10:37 151 U/L F 120.0-246.0 Bicarbonate [Moles/volume] in Serum or Plasma 2023-06-12 16:10:37 23 mEq/L F 20.0-31.0 Potassium [Moles/volume] in Serum or Plasma 2023-06-12 16:10:37 4 mEq/L F 3.5-5.5 Albumin [Mass/volume] in Serum or Plasma by Bromocresol green (BCG) dye binding method 2023-06-12 16:10:37 3.9 g/dL F 3.4-4.8 Protein [Mass/volume] in Serum or Plasma 2023-06-12 16:10:37 7.5 g/dL F 5.7-8.2 Glucose [Mass/volume] in Serum or Plasma 2023-06-12 16:10:37 299 mg/dL F 70.0-99.0 GLOBULIN 2023-04-23 04:07:02 3.9 g/dL F 0.9-5.0 A/G RATIO 2023-04-23 04:07:02 1 Calc F 1.0-2.5 Bicarbonate [Moles/volume] in Serum or Plasma 2023-04-23 04:06:32 22 mEq/L F 20.0-31.0 Potassium [Moles/volume] in Serum or Plasma 2023-04-23 04:06:32 4.6 mEq/L F 3.5-5.5 Albumin [Mass/volume] in Serum or Plasma by Bromocresol green (BCG) dye binding method 2023-04-23 04:06:32 4 g/dL F 3.4-4.8 Protein [Mass/volume] in Serum or Plasma 2023-04-23 04:06:32 7.9 g/dL F 5.7-8.2 Glucose [Mass/volume] in Serum or Plasma 2023-04-23 04:06:32 195 mg/dL F 70.0-99.0 Lactate dehydrogenase [Enzymatic activity/volume] in Serum or Plasma 2023-04-23 04:06:32 167 U/L F 120.0-246.0 A/G RATIO 2023-03-16 16:48:35 1.1 Calc F 1.0-2.5 GLOBULIN 2023-03-16 16:48:35 3.6 g/dL F 0.9-5.0 Lactate dehydrogenase [Enzymatic activity/volume] in Serum or Plasma 2023-03-16 16:47:36 140 U/L F 120.0-246.0 Bicarbonate [Moles/volume] in Serum or Plasma 2023-03-16 16:47:36 22 mEq/L F 20.0-31.0 Potassium [Moles/volume] in Serum or Plasma 2023-03-16 16:47:36 4 mEq/L F 3.5-5.5 Albumin [Mass/volume] in Serum or Plasma by Bromocresol green (BCG) dye binding method 2023-03-16 16:47:36 3.9 g/dL F 3.4-4.8 Protein [Mass/volume] in Serum or Plasma 2023-03-16 16:47:36 7.5 g/dL F 5.7-8.2 Glucose [Mass/volume] in Serum or Plasma 2023-03-16 16:47:36 253 mg/dL F 70.0-99.0 VLDL-CHOL(CALC) 2023-02-20 15:24:10 see comments F 0.0-29.0 Unable to Calculate.Unable to report when Triglycerides >400 LDL-CHOLESTEROL 2023-02-20 15:24:10 see comments F 0.0-99.0 Unable to Calculate.Unable to report when Triglycerides >400 GLOBULIN 2023-02-20 15:24:10 3.9 g/dL F 0.9-5.0 A/G RATIO 2023-02-20 15:24:10 1.1 Calc F 1.0-2.5 CHOL/HDL RATIO 2023-02-20 15:24:10 6.6 Calc F 3.3-5.0 Protein [Mass/volume] in Serum or Plasma 2023-02-20 15:23:16 481 mg/dL F 0.0-149.0 Cholesterol [Mass/volume] in Serum or Plasma 2023-02-20 15:23:16 224 mg/dL F 0.0-199.0 Lactate dehydrogenase [Enzymatic activity/volume] in Serum or Plasma 2023-02-20 15:23:16 159 U/L F 120.0-246.0 Bicarbonate [Moles/volume] in Serum or Plasma 2023-02-20 15:23:16 23 mEq/L F 20.0-31.0 Albumin [Mass/volume] in Serum or Plasma by Bromocresol green (BCG) dye binding method 2023-02-20 15:23:16 4.2 g/dL F 3.4-4.8 Potassium [Moles/volume] in Serum or Plasma 2023-02-20 15:23:16 4.2 mEq/L F 3.5-5.5 Cholesterol in HDL [Mass/volume] in Serum or Plasma 2023-02-20 15:23:16 34 mg/dL F 40.0-60.0 Protein [Mass/volume] in Serum or Plasma 2023-02-20 15:23:16 8.1 g/dL F 5.7-8.2 Glucose [Mass/volume] in Serum or Plasma 2023-02-20 15:23:16 204 mg/dL F 70.0-99.0 GLOBULIN 2023-01-14 23:49:01 3.7 g/dL F 0.9-5.0 A/G RATIO 2023-01-14 23:49:01 1.1 Calc F 1.0-2.5 Lactate dehydrogenase [Enzymatic activity/volume] in Serum or Plasma 2023-01-14 23:48:14 175 U/L F 120.0-246.0 Bicarbonate [Moles/volume] in Serum or Plasma 2023-01-14 23:48:14 24 mEq/L F 20.0-31.0 Albumin [Mass/volume] in Serum or Plasma by Bromocresol green (BCG) dye binding method 2023-01-14 23:48:14 4.1 g/dL F 3.4-4.8 Potassium [Moles/volume] in Serum or Plasma 2023-01-14 23:48:14 4.8 mEq/L F 3.5-5.5 Protein [Mass/volume] in Serum or Plasma 2023-01-14 23:48:14 7.8 g/dL F 5.7-8.2 Glucose [Mass/volume] in Serum or Plasma 2023-01-14 23:48:14 110 mg/dL F 70.0-99.0 GLOBULIN 2022-12-12 02:03:30 3.6 g/dL F 0.9-5.0 A/G RATIO 2022-12-12 02:03:30 1.1 Calc F 1.0-2.5 Lactate dehydrogenase [Enzymatic activity/volume] in Serum or Plasma 2022-12-12 02:02:27 173 U/L F 120.0-246.0 Bicarbonate [Moles/volume] in Serum or Plasma 2022-12-12 02:02:27 23 mEq/L F 20.0-31.0 Potassium [Moles/volume] in Serum or Plasma 2022-12-12 02:02:27 4.4 mEq/L F 3.5-5.5 Albumin [Mass/volume] in Serum or Plasma by Bromocresol green (BCG) dye binding method 2022-12-12 02:02:27 3.9 g/dL F 3.4-4.8 Protein [Mass/volume] in Serum or Plasma 2022-12-12 02:02:27 7.5 g/dL F 5.7-8.2 Glucose [Mass/volume] in Serum or Plasma 2022-12-12 02:02:27 158 mg/dL F 70.0-99.0 A/G RATIO 2022-11-15 01:51:05 1.1 Calc F 1.0-2.5 GLOBULIN 2022-11-15 01:51:05 3.7 g/dL F 0.9-5.0 Lactate dehydrogenase [Enzymatic activity/volume] in Serum or Plasma 2022-11-15 01:50:18 159 U/L F 120.0-246.0 Bicarbonate [Moles/volume] in Serum or Plasma 2022-11-15 01:50:18 22 mEq/L F 20.0-31.0 Potassium [Moles/volume] in Serum or Plasma 2022-11-15 01:50:18 3.9 mEq/L F 3.5-5.5 Albumin [Mass/volume] in Serum or Plasma by Bromocresol green (BCG) dye binding method 2022-11-15 01:50:18 4.1 g/dL F 3.4-4.8 Protein [Mass/volume] in Serum or Plasma 2022-11-15 01:50:18 7.8 g/dL F 5.7-8.2 Glucose [Mass/volume] in Serum or Plasma 2022-11-15 01:50:18 238 mg/dL F 70.0-99.0 GLOBULIN 2022-10-15 18:56:59 3.7 g/dL F 0.9-5.0 A/G RATIO 2022-10-15 18:56:59 1.1 Calc F 1.0-2.5 Lactate dehydrogenase [Enzymatic activity/volume] in Serum or Plasma 2022-10-15 18:56:41 148 U/L F 120.0-246.0 Bicarbonate [Moles/volume] in Serum or Plasma 2022-10-15 18:56:41 22 mEq/L F 20.0-31.0 Potassium [Moles/volume] in Serum or Plasma 2022-10-15 18:56:41 4.3 mEq/L F 3.5-5.5 Albumin [Mass/volume] in Serum or Plasma by Bromocresol green (BCG) dye binding method 2022-10-15 18:56:41 4.1 g/dL F 3.4-4.8 Protein [Mass/volume] in Serum or Plasma 2022-10-15 18:56:41 7.8 g/dL F 5.7-8.2 Glucose [Mass/volume] in Serum or Plasma 2022-10-15 18:56:41 175 mg/dL F 70.0-99.0 GLOBULIN 2022-09-23 17:09:03 3.9 g/dL F 0.9-5.0 A/G RATIO 2022-09-23 17:09:03 1.1 Calc F 1.0-2.5 Lactate dehydrogenase [Enzymatic activity/volume] in Serum or Plasma 2022-09-23 17:08:48 152 U/L F 120.0-246.0 Bicarbonate [Moles/volume] in Serum or Plasma 2022-09-23 17:08:48 23 mEq/L F 20.0-31.0 Albumin [Mass/volume] in Serum or Plasma by Bromocresol green (BCG) dye binding method 2022-09-23 17:08:48 4.4 g/dL F 3.4-4.8 Potassium [Moles/volume] in Serum or Plasma 2022-09-23 17:08:48 4.8 mEq/L F 3.5-5.5 Protein [Mass/volume] in Serum or Plasma 2022-09-23 17:08:48 8.3 g/dL F 5.7-8.2 Glucose [Mass/volume] in Serum or Plasma 2022-09-23 17:08:48 171 mg/dL F 70.0-99.0 Albumin [Mass/volume] in Serum or Plasma by Bromocresol green (BCG) dye binding method 2022-09-08 15:53:46 4.2 g/dL F 3.4-4.8 Potassium [Moles/volume] in Serum or Plasma 2022-09-08 15:53:46 4.7 mEq/L F 3.5-5.5 VLDL-CHOL(CALC) 2022-09-02 16:47:36 55 mg/dL F 0.0-29.0 LDL-CHOLESTEROL 2022-09-02 16:47:36 36 mg/dL F 0.0-99.0 GLOBULIN 2022-09-02 16:47:36 4.2 g/dL F 0.9-5.0 A/G RATIO 2022-09-02 16:47:36 1.1 Calc F 1.0-2.5 CHOL/HDL RATIO 2022-09-02 16:47:36 4.1 Calc F 3.3-5.0 Protein [Mass/volume] in Serum or Plasma 2022-09-02 16:46:33 275 mg/dL F 0.0-149.0 Lactate dehydrogenase [Enzymatic activity/volume] in Serum or Plasma 2022-09-02 16:46:33 144 U/L F 120.0-246.0 Albumin [Mass/volume] in Serum or Plasma by Bromocresol green (BCG) dye binding method 2022-09-02 16:46:33 4.7 g/dL F 3.4-4.8 Potassium [Moles/volume] in Serum or Plasma 2022-09-02 16:46:33 4.8 mEq/L F 3.5-5.5 Cholesterol in HDL [Mass/volume] in Serum or Plasma 2022-09-02 16:46:33 29 mg/dL F 40.0-60.0 Cholesterol [Mass/volume] in Serum or Plasma 2022-09-02 16:46:31 120 mg/dL F 0.0-199.0 Bicarbonate [Moles/volume] in Serum or Plasma 2022-09-02 16:46:31 33 mEq/L F 20.0-31.0 Protein [Mass/volume] in Serum or Plasma 2022-09-02 16:46:31 8.9 g/dL F 5.7-8.2 Glucose [Mass/volume] in Serum or Plasma 2022-09-02 16:46:31 132 mg/dL F 70.0-99.0 Bicarbonate [Moles/volume] in Serum or Plasma 2022-07-30 21:21:50 25 mEq/L F 20.0-31.0 Albumin [Mass/volume] in Serum or Plasma by Bromocresol green (BCG) dye binding method 2022-07-30 21:21:50 4 g/dL F 3.4-4.8 Potassium [Moles/volume] in Serum or Plasma 2022-07-30 21:21:50 4 mEq/L F 3.5-5.5 Encounters No encounter information to report Immunizations Ordered Immunization Name Filled Immunization Name Date Status Comments Refusal Reason Influenza, MDCK, trivalent, preservative 2024-06-19 20:30:00 TST-PPD intradermal 2023-11-15 20:15:00 Hep B, adult 2023-04-21 16:25:00 Hep B, adult 2022-12-10 18:20:00 Hep B, adult 2022-11-13 18:00:00 Hep B, adult 2022-10-14 14:50:00 TST-PPD intradermal 2022-09-01 20:30:00 pneumococcal polysaccharide PPV23 2022-08-19 14:55:25 TST-PPD intradermal 2022-08-19 14:30:00 TST-PPD intradermal 2022-07-31 12:18:15 Influenza Vaccination 2022-07-23 06:00:00 Pneumococcal Vaccination 2022-07-22 06:00:00 Influenza Vaccination 2022-07-21 06:00:00 Influenza Vaccination 2022-06-23 06:00:00 Plan of Treatment Planned Activity Provider Planned Date Details Commen ts Diagnostic Test Pending [facility] Matt Miles 2023-08-18 07:22:04 Hemoglobin [Mass/volume] in Blood [code = 718-7] Diagnostic Test Pending [facility] 2022-09-01 17:07:16 Glucose [Mass/volume] in Serum or Plasma [code = 2345-7] Diagnostic Test Pending [facility] 2022-09-01 17:05:00 Alanine aminotransferase [Enzymatic activity/volume] in Serum or Plasma [code = 1742-6] Diagnostic Test Pending [facility] 2023-02-06 05:00:00 Parathyrin.intact [Mass/volume] in Serum or Plasma [code = 2731-8] Diagnostic Test Pending [facility] 2022-09-01 17:02:35 Reticulocytes/100 erythrocytes in Blood by Automated count [code = 97791-6] [facility] 17:08:21 25-Hydroxyvitamin D3+25-Hydroxyvitamin D2 [Mass/volume] in Serum or Plasma [code = 14316-4] [facility] 20[facility] 17:00:51 Ferritin [Mass/volume] in Serum or Plasma [code = 2276-4] Diagnostic Test Pending [facility] 2022-09-01 17:10:35 Aluminum [Mass/volume] in Serum or Plasma [code = 5574-9] Diagnostic Test Pending [facility] (PD) 2023-04-01 19:45:32 CCPD [code = MWZ001] Diet Order [facility] (PD) September 08, 2022 Diet Calorie 35 kcal/kg Fluid Value 1200 mL/d Phosphorus Value 900 mg/d Potassium Value 2500 mg/d Protein Value 1.2 gm/kg Sodium Value 2000 mg/d Calculated Weight 76.6 kg
--- OUTSIDE RECORDS SUMMARY | 2024-10-11 04:38 | XMS_ITS | Clinical Summary ---
Author Organization [facility] Address [address] [place] [address] Care Team Providers Care Flue Cleaner Name Role Phone Joel Hernandez MD Primary Care Provider [phone] Allergies No known active allergies Medications pantoprazole (PROTONIX) 40 mg Oral TbECIndications:MELLISA D (gastroesophageal reflux disease) Take 1 Tab by mouth daily. 30 Tab 6 01/15/20 11 Active mupirocin (BACTROBAN) 2 % Topical OintIndications:Ski n abscesses Apply to affected area 2 times daily. 1 Tube 1 01/15/20 11 Active semaglutide (Ozempic) 1 mg/dose (4 mg/3 mL) Pen Injector INJECT 1 MG (0.75 ML) SUBCUTANEOUSLY WEEKLY 04/01/20 21 Active glyBURIDE (DIABETA) 2.5 mg tablet Take 2.5 mg by mouth. 02/27/20 21 Active escitalopram oxalate (LEXAPRO) 10 mg tablet Take 10 mg by mouth daily. 03/31/20 21 Active omeprazole (PriLOSEC) 20 mg Capsule, Delayed Release(E.C.) Take 20 mg by mouth daily. Active hydroCHLOROthiazide (HYDRODIURIL) 12.5 mg tablet Take 12.5 mg by mouth daily. 04/09/20 21 Active cholecalciferol 1,250 mcg (50,000 unit) Capsule TAKE 1 CAPSULE BY MOUTH WEEKLY 01/26/20 21 Active fenofibrate nanocrystallized (TRICOR) 145 mg tablet Take 145 mg by mouth daily. 03/21/20 21 Active Active Problems Problem Noted Date Diagnosed Date Anemia of chronic renal failure, stage 4 (severe ) 06/06/2021 Esophageal reflux 01/30/2009 Family History Medical History Relation Name Comments Healthy Brother Cancer Mother Diabetes Mother Healthy Sister Relation Name Status Comments Brother Alive Daughter 1 Alive Daughter 2 Alive Mother Alive Sister Alive Social History Tobacco Use Types Packs/Day Years Used Date Smoking Tobacco: Never Smokeless Tobacco: Never Alcohol Use Standard Drinks/Week Comments No 0 (1 standard drink = 0.6 oz pur e alcohol) Sex and Gender Information Value Date Recorded Sex Assigned at Not on file 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 Gender Identity Not on file Sexual Orientation Not on file Last Filed Vital Signs Vital Sign Reading Time Taken Comments Blood Pressure 142/85 06/06/2021 1:17 PM CDT Pulse 73 06/06/2021 1:17 PM CDT Temperature 37 C (98.6 F) 06/06/2021 1:17 PM CDT Respiratory Rate 20 01/14/2011 4:20 PM CDT Oxygen Saturation 96% 06/06/2021 1:17 PM CDT Inhaled Oxygen Concentration - - Weight 97.5 kg (214 lb 14.4 oz) 06/06/2021 1:17 PM CDT Height 175.3 cm (5' 9 ) 06/06/2021 1:17 PM CDT Body Mass Index 31.74 06/06/2021 1:17 PM CDT Plan of Treatment Health Maintenance Due Date Last Done Comments DIABETES ANNUAL FOOT EXAM 11/01/1997 DIABETES ANNUAL RETINAL EXAM 11/01/1997 DIABETES MICROALBUMIN ANNUAL SCREEN 11/01/1997 LDL CHOLESTEROL ANNUAL 11/01/1997 DTAP/TDAP/TD VACCINES (1 - Tdap) 11/01/1998 HEPATITIS B VACCINES (1 of 3 - 19+ 3-dose series) 11/01/1998 PNEUMOCOCCAL VACCINE 0-49 YE ARS (2 of 2 - PCV) 10/10/2015 10/09/2014 DIABETES HBA1C Q 6 MONTHS 01/07/2023 07/09/2022 INFLUENZA VACCINE (#1) 2024 10/09/2014 HPV VACCINES Aged Out No longer eligi ble based on patient's age to complete this topic Insurance Care Teams Flue Cleaner Relationship Specialty Start Date End Date Joel Hernandez MD PCP - General Family Practice 06/06/21
--- OUTSIDE RECORDS SUMMARY | 2024-10-11 04:38 | XMS_ITS | Patient Health Record ---
Author Organization [facility] Address [address] [place], [place] [address] Care Team Providers Care Needle Polisher Name Role Phone Sudhir Dawson Unavailable [phone] Ilan CANO, Alberto Unavailable Unavailable Reason For Referral No Information Medications Medication SIG (Take, Route, Fr equency, Duration) Notes Start Date End Date Status Colchicine 0.6 MG 1 tablet Orally Once a day Active glipiZIDE 5 MG 1 tablet Orally Once a day Active PriLOSEC 20 MG 1 tablet Orally Once a day Active Problems Problem Type SNOMED Code ICD Code Onset Dates Problem Status W/U Status Risk Notes Problem [id number] Essential (primary) hypertension (401.9) Active confirmed Low Problem 87641096 DM w/o complication type II (E11.9) Active confirmed Low Problem 746343603 Chronic kidney disease, stage III (moderate) (N18.3) Active confirmed Low Problem 51794558 Gout (M10.9) Active confirmed Low Plan Of Treatment Pending Test Test Name Order Date Ultrasound : Kidneys, bilate ral and urinary bladder with post void residual 01/24/2016 Creatinine Clearance 01/24/2016 Protein Total, Qn, 24-Hr Urine 6 RPR 01/24/2016 Rheumatoid Arthritis Factor 01/24/2016 CCP IgG Antibodies 01/24/2016 AMISHA Comprehensive Panel 01/24/2016 DNA (DS) ANTIBODY 01/24/2016 Magnesium 01/24/2016 Renal Panel 01/24/2016 C3 01/24/2016 C4 01/24/2016 Future Test Test Name Order Date Basic Metabolic Panel 01/27/2016 Insurance Providers Payer Name Payer Address Payer Phone Subscriber Number Group Number Insured Name Patient Relationship to Insured Coverage Start Date Coverage End Date [employer] [address] [place] [address] [id number] [place] Self - patient is the insured Medical (General) History Medical History History ICD Code DM: recent diagonosis. no retinopathy so far. HTN CKD Gout DYAN GERD
--- OUTSIDE RECORDS SUMMARY | 2024-10-11 04:38 | XMS_ITS | Clinical Summary ---
Author Organization [facility] Address [address] [place] [id number] Phone Care Team Providers Care Electrical Panel Builder Name Role Phone Unavailable Primary Care Provider Unavailabl e Allergies No known active allergies Medications Medication Sig Dispensed Refills Start Date End Date Status acetaminophen (TYLENOL) 325 MG tablet Take 650 mg by mouth every 6 hours as needed 10/10/2014 Active Blood Glucose Monitoring Suppl (Bush[employer] Verio Flex System) w/Device kit 04/15/2021 Active Cholecalciferol (Vitamin D3) 1.25 MG (64358 UT) capsule TAKE 1 CAPSULE BY MOUTH WEEKLY 01/25/2021 Active escitalopram (LEXAPRO) 10 MG tablet Take 10 mg by mouth 1 (one) time each day 03/31/2021 Active fenofibrate (TRICOR) 145 MG tablet Take 145 mg by mouth 1 (one) time each day 03/21/2021 Active glucose blood test strip 10/10/2014 Active glyBURIDE (DIABETA) 2.5 MG tablet Take 2.5 mg by mouth 1 (one) time each day in the morning 04/09/2021 Active hydroCHLOROthiazid e (HYDRODIURIL) 12.5 MG tablet Take 12.5 mg by mouth 1 (one) time each day 04/09/2021 Active Lancets misc 10/10/2014 Active Ozempic, 1 MG/DOSE, 4 MG/3ML solution pen-injector INJECT 1 MG (0.75 ML) SUBCUTANEOUSLY WEEKLY 04/01/2021 Active Active Problems Problem Noted Date Diagnosed Date Anemia of chronic renal failure 06/06/2021 Chronic kidney disease, Stage IV (severe) 2020 Body mass index 30+ - obesity 05/13/2018 Hypertension 05/10/2018 Type 2 diabetes mellitus 05/10/2018 Immunizations Name Administration Dates Next Due Influenza (IM) Preservative Free 10/09/2014 Pneumococcal Polysaccharide 10/09/2014 Social History Tobacco Use Types Packs/Day Years Used Date Smoking Tobacco: Former Smokeless Tobacco: Never Alcohol Use Standard Drinks/Week Comments Not Currently 0 (1 standard drink = 0.6 oz pur e alcohol) Sex and Gender Information Value Date Recorded Sex Assigned at Not on file Gender Identity Not on file Sexual Orientation Not on file Last Filed Vital Signs Vital Sign Reading Time Taken Comments Blood Pressure 130/80 04/16/2021 2:30 PM CDT Pulse 72 04/16/2021 2:30 PM CDT Temperature 36.7 C (98 F) 04/16/2021 2:30 PM CDT Respiratory Rate - - Oxygen Saturation - - Inhaled Oxygen Concentration - - Weight 97.5 kg (215 lb) 04/16/2021 2:30 PM CDT Height 175.3 cm (5' 9 ) 04/16/2021 2:30 PM CDT Body Mass Index 31.75 04/16/2021 2:30 PM CDT Plan of Treatment Health Maintenance Due Date Last Done Comments Influenza Vaccine (#1) 2024 10/09/2014
--- OUTSIDE RECORDS SUMMARY | 2024-10-11 04:38 | XMS_ITS | Clinical Summary ---
Author Organization [facility] Address [address] [place] [address] Care Team Providers Care Aircraft Engine Technician Name Role Phone AurelianoKade mackay Rock TRAORE Primary Care Provider [phone] Medications acetaminophen (TYLENOL) 325 MG tablet Take 650 mg by mouth every 6 (six) hours if needed 5 Active atorvastatin (LIPITOR) 20 MG tablet Take 1 tablet by mouth at bed time 0 Active Dulaglutide (Trulicity) 0.75 MG/0.5ML solution pen-injector Inject 0.75 mg under the skin 1 (one) time per week 0 Active glipiZIDE (GLUCOTROL XL) 5 MG 24 hr tablet Take 5 mg by mouth 5 Active glucose blood test strip 5 Active Lancets misc 5 Active lisinopril (PRINIVIL,ZESTR IL) 10 MG tablet Take 10 mg by mouth daily 8 Active metFORMIN (GLUCOPHAGE) 1000 MG tablet Take 1,000 mg by mouth 8 Active omeprazole (PriLOSEC) [address] capsule Take 20 mg by mouth daily Active miconazole (MICOTIN) 2 % cream Application Site:between the toes (Description and Location) 8 Active glyBURIDE (DIABETA) 2.5 MG tablet Take 1 tablet (2.5 mg total) by mouth every morning 90 tablet 1 1 Active Active Problems Problem Noted Date Diagnosed Date Renal function tests outside reference range 02/2021 Type 2 diabetes mellitus 01/13/2021 Tinea pedis 05/13/2018 Type 2 diabetes mellitus with hyperglycemia 09/2017 Immunizations Name Administration Dates Next Due Influenza (IM) Preservative Free 10/09/2014 Pneumococcal Polysaccharide 10/09/2014 Social History Tobacco Use Types Packs/Day Years Used Date Smoking Tobacco: Never Alcohol Use Standard Drinks/Week Comments No 0 (1 standard drink = 0.6 oz pur e alcohol) Sex and Gender Information Value Date Recorded Sex Assigned at Not on file Legal Sex Male 2:50 PM EDT Gender Identity Not on file Sexual Orientation Not on file Last Filed Vital Signs Vital Sign Reading Time Taken Comments Blood Pressure 148/86 06/25/2020 12:00 PM RN LIAISON Pulse 89 06/25/2020 12:00 PM RN LIAISON Temperature 35.5 C (95.9 F) 06/25/2020 12:00 PM RN LIAISON Respiratory Rate 20 06/25/2020 12:00 PM RN LIAISON Oxygen Saturation 97% 06/25/2020 12:00 PM RN LIAISON Inhaled Oxygen Concentration - - Weight 111 kg (245 lb) 06/25/2020 12:00 PM RN LIAISON Height 175.3 cm (5' 9 ) 06/25/2020 12:00 PM RN LIAISON Body Mass Index 36.18 06/25/2020 12:00 PM RN LIAISON Plan of Treatment Health Maintenance Due Date Last Done Comments Hepatitis B Vaccine (1 of 3 - 19+ 3-dose series) 11/01 Pneumococcal Vaccine: Pediat rics (0 to 5 Years) and At-Risk Patients (6 to 64 Years) (2 of 2 - PCV) 10/10/2015 10/09/2014 Diabetes: Hemoglobin A1C 01/02/2021 Diabetes: Ophthalmology Exam 01/02/2021 Diabetes: Pedal Pulse Checked 01/02/2021 Diabetes: Sensory Foot Exam 01/02/2021 Diabetes: Visual Foot Exam 01/02/2021 Influenza Vaccine (#1) 2024 10/09/2014 Insurance [place] [facility] Care Teams Aircraft Engine Technician Relationship Specialty Start Date End Date Kade Marie DO [address] [facility] [address] [place] [address] PCP - General Family Medicine 03/11/21
--- OUTSIDE RECORDS SUMMARY | 2024-10-11 04:38 | XMS_ITS | Referral Summary ---
Author Organization [facility] [employer] Address [address] [place] [address] Care Team Providers Care [place] Representative Name Role Phone Keli Daley RN Unavailable [phone] Mya Gross MD Primary Care Provider [phone] Source Comments [facility] [employer],non-owned Affiliates and Associated Physician Practices is amultiple site organization consisting of ambulatory clinics and hospital sitesin [place], [place], [place] and [place]. This disclosure is being madepursuant to the Care Everywhere program and may not contain all information available regarding this patient. Last updated 18.[facility] [employer] Allergies No known active allergies Medications * [...] meds at dx. Never on insulin. 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 Hypertension 08/09/2014 Resolved Problems Problem Noted Date Diagnosed Date Resolved Date Viral gastroenteritis 10/09/20142014 Immunizations Name Administration Dates Next Due INFLUENZA VACCINE, TRIV. ([place] UZONE; FLULAVAL; FLUARIX; AFLURIA TRIVALENT; 6MO+), 0.5 ML (IIV3) 10/09/2014 PNEUMOCOCCAL PPSV23 10/09/2014 Social History Tobacco Use Types Packs/Day [...] Mass Index 33.23 03/19/2023 11:22 AM CDT Functional Status Functional Status Response Date of Assess ment Is person deaf or have serious hearing difficult y? No 10/08/2014 Is person blind or have serious difficulty seein g? No 10/08/2014 Does person have serious dif ficulty walking/climbing stairs? No 10/08/2014 Does person have difficulty dressing/bathing? No 10/08/2014 Does person have difficulty doing errands alone? No 10/08/2014 Cognitive Status Response Date of Assessm ent Does person have difficulty concentrating/remembering/making decisions? No 10/08/2014 Plan of Treatment Not on file Goals Goal Patient Goal Type Associated Problems Recent Progress Patient-Stated? Author Medication Management General No Leigh Zelaya RN Note: Expected end date: ongoing Interventions: [...] HEPATITIS C ANTIBODY Routine 07/09/2022 11:06 AM [employer]OX[employer] TRA[employer]ER Proteinuria, unspecified type Type 2 diabetes mellitus with hyperosmolarity without coma, without long-term current use of insulin (HCC) HEMOGLOBIN A1C Routine 07/09/2022 11:06 AM BOXING TRAINER Proteinuria, unspecified type Type 2 diabetes mellitus with hyperosmolarity without coma, without long-term current use of insulin (HCC) HIV-1 HIV-2 ANTIBODY + HIV P24 AG PANEL Routine 07/09/2022 11:06 AM BOXING TRAINER Type 2 diabetes mellitus with hyperosmolarity without coma, without long-term current use of insulin (HCC) Proteinuria, unspecified type from Last 3 Months or Most Recently Relevant to Health Maintenance Results * (ABNORMAL) COMPREHENSIVE METABOLIC PANEL (03/19/2023 1:05 PM CDT) BUN 55(H) 7 - 26 mg/dL 03/19/2023 1:44 PM [facility] Creatinine 7.58(H) 0.71 - 1.16 mg/dL 03/19/2023 1:44 PM [facility] Sodium 138 136 - 145 mmol/L 03/19/2023 1:44 PM [facility] Potassium 4.0 3.5 - 4.5 mmol/L 03/19/2023 1:44 PM [facility] Chloride 103 98 - 107 mmol/L 03/19/2023 1:44 PM [facility] CO2 22 22 - 29 mmol/L 03/19/2023 1:44 PM [facility] Glucose 244(H) 70 - 115 mg/dL 03/19/2023 1:44 PM [facility] Calcium 8.8 8.4 - 10.2 mg/dL 03/19/2023 1:44 PM [facility] Protein Total 8.1 6.0 - 8.3 g/dL 03/19/2023 1:44 PM [facility] Albumin 3.0(L) 3.4 - 5.0 g/dL 03/19/2023 1:44 PM [facility] Bilirubin Total 0.4 0.2 - 1.2 mg/dL 03/19/2023 1:44 PM [facility] Alkaline Phosphatase 86 40 - 150 U/L 03/19/2023 1:44 PM [facility] ALT 11 5 - 55 U/L 03/19/2023 1:44 PM [facility] AST 9 5 - 34 U/L 03/19/2023 1:44 PM [facility] Anion Gap 17 8 - 18 03/19/2023 1:44 PM [facility] BUN/Creatinine Ratio 7 7 - 23 03/19/2023 1:44 PM [facility] Osmolality Calculated 309(H) 270 - 300 mOsm/kg 03/19/2023 1:44 PM [facility] Albumin/Globulin Ratio 0.6(L) 1.1 - 2.3 03/19/2023 1:44 PM [facility] eGFR by CKD-EPI 8(L) >=90 mL/min/1.7 3 m2 03/19/2023 1:[address] [facility] Blood BLOOD SPECIMEN / Unknown Venipuncture / Unknown 03/19/2023 1:05 PM CDT 03/19/2023 1:14 PM CDT Lisa Cat Yu ATOMIC WELDER-MANAGER CREDIT COLLECTIONS LAB - CHEMIS TRY ORDERABLES Performing Organization Address City/[facility]/ZIP Co de Phone Number [address] [address], [facility] [phone] * HIV-1 HIV-2 ANTIBODY + HIV P24 AG PANEL (07/09/2022 11:06 AM BOXING TRAINER) HIV Antigen/Antibod y 1 & 2 Non-reacti ve Non-react amaury 07/09/2022 12:51 PM [facility] Comment:No Laboratory eviden ce of HIV infection. Blood BLOOD SPECIMEN / Unknown Lab Venipuncture / Unknown 07/09/2022 11:06 AM BOXING TRAINER 07/09/2022 11:59 AM BOXING TRAINER Chela Lanier MD LAB - CHEMISTRY ORDE RABLES Performing Organization Address City/[facility]/ZIP Co de Phone Number [address] [address], [facility] [phone] * (ABNORMAL) HEMOGLOBIN A1C (07/09/2022 11:06 AM BOXING TRAINER) Hemoglobin A1c 6.6(H) <=5.6 % 07/09/2022 2:34 PM [facility] Estimated Average Glucose 143 mg/dL 07/09/2022 2:34 PM [facility] Comment: HbA1c Interpretation: Normal : < 5.7% Pre-diabetes: 5.7-6.4% Diabetes: Equal to or greater than 6.5% Test results diagnostic of diabetes should be repeated for confirmation. Treatment target values recommended by ADA and other clinical organizations should be used to evaluate metabolic control in patients. Reference: [place] [employer], Standards of Care in Diabetes -2020 In patients 70 years and older consider HbA1c target range of 7.0-7.5% (Reference: Juancho Wilkerson et al. JAMDA. 2012) The Sebia assay for the measurement of HbA1c is a National Glycohemoglobin Standardization Program (NGSP) certified method. Blood BLOOD SPECIMEN / Unknown Lab Venipuncture / Unknown 07/09/2022 11:06 AM BOXING TRAINER 07/09/2022 12:04 PM BOXING TRAINER Chela Lanier MD LAB - CHEMISTRY MICHAELA H[facility] [address] [place] [address], [facility] [phone] * HEPATITIS C ANTIBODY (07/09/2022 11:06 AM BOXING TRAINER) Hepatitis C Antibody Non-react amaury Non-reac tive 07/09/2022 12:[address] [facility] Comment:Hepatitis C Antibody screen indicates no serologic evidence of past or current infection with Hepatitis C Virus. Patients with unexplained liver disease who are immunocompromised or suspected of having acute Hepatitis C infection may benefit from Nucleic Acid Test (NICO) for Hepatitis C Viral RNA to confirm Hepatitis C status. Blood BLOOD SPECIMEN / Unknown Lab Venipuncture / Unknown 07/09/2022 11:06 AM BOXING TRAINER 07/09/2022 11:59 AM BOXING TRAINER Chela Lanier MD LAB - CHEMISTRY MICHAELA HOLMAN [address] [address], [facility] [phone] from Last 3 Months or Most Recently Relevant to Health Maintenance Advance Directives * Full Code (Latest Code Status on File) Date Activated Date Inactivated Comments 10/08/2014 8:15 PM 10/10/2014 4:46 PM Care Teams [place] Representative Relationship Specialty Start Date End Date Mya Gross MD [address] [id number] PCP - General 01/21/22 Keli Daley, RN App[employer] Stock Checker 10/09/14
--- OUTSIDE RECORDS SUMMARY | 2024-10-11 04:38 | XMS_ITS | Patient Health Summary ---
Author Organization [facility] [employer] Address [address] [place] [address] Care Team Providers Care Diffusion Furnace Operator Name Role Phone Keli Daley RN Unavailable [phone] Mya Gross MD Primary Care Provider [phone] Note from [facility] [place],non-owned Affiliates and Associated Physician Practices is amultiple site organization consisting of ambulatory clinics and hospital sitesin [place], [place], [place] and [place]. This disclosure is being madepursuant to the Care Everywhere program and may not contain all information available regarding this patient. Last updated 18.[facility] [employer] Allergies No known active allergies Medications * Be aware that medications may not be up to date on this document. Alwaysverify current medications with the patient. * omeprazole (PRILOSEC) 20 MG capsule Take 20 mg by mouth once daily. * acetaminophen (TYLENOL) 325 MG tablet(Started 10/10/2014) Take 2 Tabs by mouth every 6 hours as needed. Maximum allowable Acetaminophen amount = 4 Grams (4000 mg) / 24 hours. * glipiZIDE CR 24hr (GLUCOTROL XL) 5 MG tablet(Started 10/10/2014) Take 1 Tab by mouth daily before breakfast. 3 refills left * blood glucose monitoring kit(Started 10/10/2014) * lancets(Started 10/10/2014) 1 refill left * blood glucose test strip(Started 10/10/2014) 1 refill left * escitalopram (Lexapro) 20 MG tablet Take 1 (one) tablet by mouth once daily * amLODIPine (Norvasc) 10 MG tablet(Started 07/09/2022) Take 1 (one) tablet by mouth once daily Active Problems Problem Noted Date Diagnosed Date Acid reflux disease 06/03/2023 Depression 06/03/2023 ESRD on peritoneal dialysis 06/03/2023 Generalized anxiety disorder 06/03/2023 Hypercholesteremia 06/03/2023 DYAN on CPAP 06/03/2023 Primary gout 06/03/2023 Diabetes mellitus 08/09/2014 Hypertension 08/09/2014 Resolved Problems Problem Noted Date Diagnosed Date Resolved Date Viral gastroenteritis 10/09/20142014 Immunizations * INFLUENZA VACCINE, TRIV. (FLUZONE; FLULAVAL; FLUARIX; AFLURIA TRIVALENT; 6MO+), 0.5 ML (IIV3)(Given 10/09/2014) * PNEUMOCOCCAL PPSV23(Given 10/09/2014) Social History Tobacco Use Types Packs/Day Years [...] Mass Index 33.23 03/19/2023 11:22 AM CDT Procedures * CULTURE FUNGUS OTHER+FUNGUS SMEAR(Performed 03/19/2023) * CULTURE ANAEROBE(Performed 03/19/2023) * CULTURE FLUID+GRAM STAIN(Performed 03/19/2023) * US SCROTUM AND CONTENTS(Performed 03/19/2023) Performed for Scrotal swelling * SYPHILIS ANTIBODY CASCADING REFLEX(Performed 03/19/2023) * MAGNESIUM BLOOD(Performed 03/19/2023) * COMPREHENSIVE METABOLIC PANEL(Performed 03/19/2023) * CBC W AUTO DIFFERENTIAL(Performed 03/19/2023) * IR CENTRAL LINE REMOVAL(Performed 09/25/2022) Performed for End stage renal disease ([facility]) * IR PERITONEAL TUNNEL CATH PLACE(Performed 08/18/2022) Performed for End stage renal disease ([facility]) * SYPHILIS ANTIBODY CASCADING REFLEX(Performed 07/09/2022) Performed for Type 2 diabetes mellitus with hyperosmolarity without coma, without long-term currentuse of insulin ([facility]) * HIV-1 HIV-2 ANTIBODY + HIV P24 AG PANEL(Performed 07/09/2022) Performed for Type 2 diabetes mellitus with hyperosmolarity without coma, without long-term currentuse of insulin ([facility]), Proteinuria, unspecified type * FERRITIN(Performed 07/09/2022) Performed for Anemia of chronic renal failure, unspecified CKD stage, CKD (chronic kidney disease) stage 4, GFR 15-29 ml/min ([facility]) * IRON + TRANSFERRIN PANEL(Performed 07/09/2022) Performed for Anemia of chronic renal failure, unspecified CKD stage, CKD (chronic kidney disease) stage 4, GFR 15-29 ml/min ([facility]) * URINALYSIS REFLEX TO MICROSCOPIC NO CULTURE(Performed 07/09/2022) Performed for Proteinuria, unspecified type, Type 2 diabetes mellitus with hyperosmolarity without coma, without long-term current use of insulin ([facility]) * PROTEIN CREATININE RATIO URINE RANDOM PNL(Performed 07/09/2022) Performed for Proteinuria, unspecified type, Type 2 diabetes mellitus with hyperosmolarity without coma, without long-term current use of insulin ([facility]) * ALDOSTERONE BLOOD(Performed 07/09/2022) Performed for Proteinuria, unspecified type, Type 2 diabetes mellitus with hyperosmolarity without coma, without long-term current use of insulin ([facility]) * VITAMIN D 25-HYDROXY(Performed 07/09/2022) Performed for Proteinuria, unspecified type, Type 2 diabetes mellitus with hyperosmolarity without coma, without long-term current use of insulin ([facility]) * TSH REFLEX FREE T4(Performed 07/09/2022) Performed for Proteinuria, unspecified type, Type 2 diabetes mellitus with hyperosmolarity without coma, without long-term current use of insulin ([facility]) * T4 FREE(Performed 07/09/2022) Performed for Proteinuria, unspecified type, Type 2 diabetes mellitus with hyperosmolarity without coma, without long-term current use of insulin ([facility]) * PTH INTACT W/O CALCIUM(Performed 07/09/2022) Performed for Proteinuria, unspecified type, Type 2 diabetes mellitus with hyperosmolarity without coma, without long-term current use of insulin ([facility]) * LIPID PROFILE(Performed 07/09/2022) Performed for Proteinuria, unspecified type, Type 2 diabetes mellitus with hyperosmolarity without coma, without long-term current use of insulin ([facility]) * HEMOGLOBIN A1C(Performed 07/09/2022) Performed for Proteinuria, unspecified type, Type 2 diabetes mellitus with hyperosmolarity without coma, without long-term current use of insulin ([facility]) * RENIN ACTIVITY(Performed 07/09/2022) Performed for Proteinuria, unspecified type, Type 2 diabetes mellitus with hyperosmolarity without coma, without long-term current use of insulin ([facility]) * HEPATITIS C ANTIBODY(Performed 07/09/2022) Performed for Proteinuria, unspecified type, Type 2 diabetes mellitus with hyperosmolarity without coma, without long-term current use of insulin ([facility]) * HEPATITIS B SURFACE ANTIGEN W RFLX CONFIRMATION(Performed 07/09/2022) Performed for Proteinuria, unspecified type, Type 2 diabetes mellitus with hyperosmolarity without coma, without long-term current use of insulin ([facility]) * HEPATITIS B SURFACE ANTIBODY(Performed 07/09/2022) Performed for Proteinuria, unspecified type, Type 2 diabetes mellitus with hyperosmolarity without coma, without long-term current use of insulin ([facility]CC) * PROTEIN ELECTROPHORESIS BLOOD(Performed 07/09/2022) Performed for Proteinuria, unspecified type, Type 2 diabetes mellitus with hyperosmolarity without coma, without long-term current use of insulin ([facility]) * KAPPA/LAMBDA LITE CHAIN FREE PANEL(Performed 07/09/2022) Performed for Proteinuria, unspecified type, Type 2 diabetes mellitus with hyperosmolarity without coma, without long-term current use of insulin ([facility]) * GLOMERULAR BASE MEMBRANE ANTIBODY IGG(Performed 07/09/2022) Performed for Proteinuria, unspecified type, Type 2 diabetes mellitus with hyperosmolarity without coma, without long-term current use of insulin ([facility]) * ERYTHROCYTE SEDIMENTATION RATE(Performed 07/09/2022) Performed for Proteinuria, unspecified type, Type 2 diabetes mellitus with hyperosmolarity without coma, without long-term current use of insulin ([facility]) * DNA ANTIBODY DS CRITHIDIA TITER(Performed 07/09/2022) Performed for Proteinuria, unspecified type, Type 2 diabetes mellitus with hyperosmolarity without coma, without long-term current use of insulin ([facility]) * C-REACTIVE PROTEIN(Performed 07/09/2022) Performed for Proteinuria, unspecified type, Type 2 diabetes mellitus with hyperosmolarity without coma, without long-term current use of insulin ([facility]) * COMPLEMENT C4(Performed 07/09/2022) Performed for Proteinuria, unspecified type, Type 2 diabetes mellitus with hyperosmolarity without coma, without long-term current use of insulin ([facility]) * COMPLEMENT C3(Performed 07/09/2022) Performed for Proteinuria, unspecified type, Type 2 diabetes mellitus with hyperosmolarity without coma, without long-term current use of insulin ([facility]) * AMISHA BLOOD SCREEN W/REFLEX TITER(Performed 07/09/2022) Performed for Proteinuria, unspecified type, Type 2 diabetes mellitus with hyperosmolarity without coma, without long-term current use of insulin ([facility]) * URIC ACID BLOOD(Performed 07/09/2022) Performed for Proteinuria, unspecified type, Type 2 diabetes mellitus with hyperosmolarity without coma, without long-term current use of insulin ([facility]) * MAGNESIUM BLOOD(Performed 07/09/2022) Performed for Proteinuria, unspecified type, Type 2 diabetes mellitus with hyperosmolarity without coma, without long-term current use of insulin ([facility]) * PHOSPHORUS BLOOD(Performed 07/09/2022) Performed for Proteinuria, unspecified type, Type 2 diabetes mellitus with hyperosmolarity without coma, without long-term current use of insulin ([facility]) * COMPREHENSIVE METABOLIC PANEL(Performed 07/09/2022) Performed for Proteinuria, unspecified type, Type 2 diabetes mellitus with hyperosmolarity without coma, without long-term current use of insulin ([facility]) * CBC W AUTO DIFFERENTIAL(Performed 07/09/2022) Performed for Proteinuria, unspecified type, Type 2 diabetes mellitus with hyperosmolarity without coma, without long-term current use of insulin ([facility]) * PHOSPHOLIPASE A2 RECEPTOR AB IGG RFLX TITER(Performed 07/09/2022) Performed for Proteinuria, unspecified type, Type 2 diabetes mellitus with hyperosmolarity without coma, without long-term current use of insulin ([facility]) * US RETROPERITONEAL COMPLETE(Performed 01/29/2016) Performed for CKD (chronic kidney disease), stage 3 (moderate) * VAS ARTERIAL ANKLE ARM INDEX(Performed 01/29/2016) Performed for Intermittent claudication ([facility]) * RENAL FUNCTION PANEL(Performed 10/10/2014) * GLUCOSE - POINT OF CARE(Performed 10/10/2014) * GLUCOSE - POINT OF CARE(Performed 10/10/2014) * TSH(Performed 10/10/2014) * FOLATE(Performed 10/10/2014) * VITAMIN B12(Performed 10/10/2014) * IRON + TRANSFERRIN PANEL(Performed 10/10/2014) * GLUCOSE - POINT OF CARE(Performed 10/09/2014) * GLUCOSE - POINT OF CARE(Performed 10/09/2014) * GLUCOSE - POINT OF CARE(Performed 10/09/2014) * GLUCOSE - POINT OF CARE(Performed 10/09/2014) * HEMOGLOBIN A1C(Performed 10/09/2014) * CBC W AUTO DIFFERENTIAL(Performed 10/09/2014) * BASIC METABOLIC PANEL (CALCIUM TOTAL)(Performed 10/09/2014) * GLUCOSE - POINT OF CARE(Performed 10/08/2014) * US ABDOMEN LIMITED(Performed 10/08/2014) Performed for Fever, Nausea with vomiting, Cholelithiasis * CULTURE BLOOD(Performed 10/08/2014) * CT ABDOMEN PELVIS WO CONTRAST(Performed 10/08/2014) Performed for Fever, Nausea with vomiting, Diarrhea * CULTURE BLOOD(Performed 10/08/2014) * URINE MICROSCOPIC ONLY REFLEX TO CULTURE(Performed 10/08/2014) * URINALYSIS REFLEX MICROSCOPIC REFLEX CULTURE(Performed 10/08/2014) * CULTURE URINE(Performed 10/08/2014) * ACETONE BLOOD QUALITATIVE(Performed 10/08/2014) * LIPASE BLOOD(Performed 10/08/2014) * LACTIC ACID BLOOD(Performed 10/08/2014) * COMPREHENSIVE METABOLIC PANEL(Performed 10/08/2014) * CBC W AUTO DIFFERENTIAL(Performed 10/08/2014) * XR CHEST 2VW(Performed 10/08/2014) Performed for Fever * RESPIRATORY PATHOGEN PANEL BY PCR(Performed 10/08/2014) * INFLUENZA A+B ANTIGEN RAPID(Performed 10/08/2014) Results * CULTURE FUNGUS OTHER+FUNGUS SMEAR (03/19/2023 4:46 PM CDT) Culture No fungus isolated MARY 04/13/2023 7:07 AM CDT [facility] Fungus Stain No yeast or hyphae seen 04/13/2023 7:07 AM CDT [facility] Microbiology SPECIMEN FROM [employer]SCESS / Unknown Collection / Unknown 03/19/2023 4:46 PM CDT 03/19/2023 4:55 PM CDT Adriana Shearer LAB - MICROBIOLOGY ORDERABLES Performing Organization Address City/[facility]/ZIP Co de Phone Number [facility] [address] [place] [address], [facility] [phone] * CULTURE FLUID+GRAM STAIN (03/19/2023 4:46 PM CDT) Culture Rare normal skin prasad MARY 03/24/2023 11:23 AM CDT [facility] Gram Stain Moderate Polymorphonuclear cells 03/24/2023 11:23 AM CDT [facility] Gram Stain No organisms seen 023 11:23 AM CDT [facility] Fluid BODY FLUID SPECIMEN / Unknown Collection / Unknown 03/19/2023 4:46 PM CDT 03/19/2023 4:55 PM CDT Adriana Shearer LAB - MICROBIOLOGY ORDERABLES Performing Organization Address City/[facility]/ZIP Co de Phone Number [facility] [address] [place] [address], [facility] [phone] * (ABNORMAL) CULTURE ANAEROBE (03/19/2023 4:46 PM CDT) Culture Light Finegoldia magna(A) MARY 03/24/2023 2:33 PM CDT [facility] Microbiology SPECIMEN FROM [employer]SCESS / Unknown Collection / Unknown 03/19/2023 4:46 PM CDT 03/19/2023 4:55 PM CDT Adriana Shearer DO LAB - MICROBIOLOGY ORDERABLES [facility] [address] [place] [address], [facility] [phone] * US SCROTUM AND CONTENTS (03/19/2023 2:42 PM CDT) Anatomical Region Laterality Modality Pelvis Ultrasound 03/19/2023 2:23 PM CDT Impressions 03/19/2023 3:55 PM CDT IMPRESSION: 1.A 4.7 x 4.7 x 1.6 cm heterogenous fluid collection with a surrounding hypervascular rim in the right scrotal wall that is favored to be an abscess. Recommend urologic consultation. 2.Sonographically normal appearing testes without evidence of testicular torsion. 3.A 7 mm left epididymal head cyst. > Dictated by Renan Nguyen DO (residential advisor). I, Dirk Galarza MD have personally reviewed and interpreted this examination/study. > Interpreting Provider: Dirk Galarza MD on 03/19/2023 3:55 PM Narrative 03/19/2023 3:55 PM CDT PROCEDURE: US SCROTUM AND CONTENTS, DATE/TIME OF EXAM: 03/19/2023 12:44 PM, LOCATION [facility] INDICATION: N50.89: Scrotal swelling ADDITIONAL CLINICAL INFORMATION: Ordering Provider Reason For Exam: r/o abscess Technologist Note: Heterogenous fluid collection in the right scrotal wall COMPARISON: None. FINDINGS: Right testicle: 3.5 x 3.1 x 2.1 cm Right epididymis: 1.1 x 1.3 x 0.8 cm Left testicle: 4.0 x 2.4 x 1.9 cm Left epididymis: 1.3 x 1.0 x 0.8 cm The testicles are normal in size and echotexture. No focal testicular parenchymal lesion is seen. There is testicular arterial flow bilaterally. There is a 4.7 x 4.7 x 1.6 cm heterogenous fluid collection with a surrounding hypervascular rim in the right scrotal wall. The epididymides are normal in size. There is a 0.7 x 0.7 x 0.6 cm anechoic cysts within the left epididymis. No hydrocele or varicocele is identified. Procedure Note Dirk Galarza MD - 03/19/2023 PROCEDURE: US SCROTUM AND CONTENTS, DATE/TIME OF EXAM: 03/19/2023 12:44 PM, LOCATION [facility] INDICATION: N50.89: Scrotal swelling ADDITIONAL CLINICAL INFORMATION: Ordering Provider Reason For Exam: r/o abscess Technologist Note: Heterogenous fluid collection in the right scrotalwall COMPARISON: None. FINDINGS: Right testicle: 3.5 x 3.1 x 2.1 cm Right epididymis: 1.1 x 1.3 x 0.8 cm Left testicle: 4.0 x 2.4 x 1.9 cm Left epididymis: 1.3 x 1.0 x 0.8 cm The testicles are normal in size and echotexture. No focal testicular parenchymal lesion is seen. There is testicular arterial flowbilaterally. There is a 4.7 x 4.7 x 1.6 cm heterogenous fluid collection with a surrounding hypervascular rim in the right scrotal wall. The epididymides are normal in size. There is a 0.7 x 0.7 x 0.6 cmanechoic cysts within the left epididymis. No hydrocele or varicocele isidentified. IMPRESSION: 1.A 4.7 x 4.7 x 1.6 cm heterogenous fluid collection with a surrounding hypervascular rim in the right scrotal wall that is favored to be an abscess. Recommend urologic consultation. 2.Sonographically normal appearing testes without evidence of testicular torsion. 3.A 7 mm left epididymal head cyst. > Dictated by Renan Nguyen DO (residential advisor). I, Dirk Galarza MD have personally reviewed and interpreted this examination/study. > Interpreting Provider: Dirk Galarza MD on 03/19/2023 3:55 PM Lisa Cat Yu [employer]SEWING TEACHER US ORDERABLE S * SYPHILIS ANTIBODY CASCADING REFLEX (03/19/2023 1:05 PM CDT) Only the most recent of2 resultswithin the time period is included. Treponema pallidum Antibody Non-react amaury Non-react amaury 03/19/2023 2:01 PM [facility] Comment: No Laboratory evidence of syphilis infection. Note: Circulating antibodies may be low or undetectable in early infection. If recent exposure is suspected, re-draw sample in 2-4 weeks and repeat testing. Blood BLOOD SPECIMEN / Unknown Venipuncture / Unknown 03/19/2023 1:05 PM CDT 03/19/2023 1:10 PM CDT Lisa Yu [employer] K[employer]-SEWING TEACHER LAB - SEROLO GY ORDERABLES [facility] [address] [place] [address], [facility] [phone] * (ABNORMAL) CBC W AUTO DIFFERENTIAL (03/19/2023 1:05 PM CDT) Only the most recent of4 resultswithin the time period is included. WBC 11.9(H) 3.5 - 10.5 10 3/uL 03/19/2023 1:37 PM [facility] RBC 3.65(L) 4.30 - 5.70 10 6/uL 03/19/2023 1:37 PM [facility] Hemoglobin 11.0(L) 12.0 - 17.6 g/dL 03/19/2023 1:37 PM [facility] Hematocrit 33.5(L) 35.2 - 51.7 % 03/19/2023 1:37 PM [facility] MCV 91.8 80.7 - 98.3 fL 03/19/2023 1:37 PM [facility] MCH 30.1 26.7 - 34.0 pg 03/19/2023 1:37 PM [facility] MCHC 32.8 30.8 - 35.9 g/dL 03/19/2023 1:37 PM [facility] RDW-SD 45.1 36.0 - 50.0 fL 03/19/2023 1:37 PM [facility] RDW-CV 13.5 11.2 - 14.8 % 03/19/2023 1:37 PM [facility] Platelet Count 273 150 - 400 10 3/uL 03/19/2023 1:37 PM [facility] MPV 8.5(L) 9.4 - 12.9 fL 03/19/2023 1:37 PM [facility] nRBC Absolute 0.00 0 10 3/uL 03/19/2023 1:37 PM [facility] nRBC Auto 0.0 0 /100 WBC 03/19/2023 1:37 PM [facility] Neutrophils % 72.0(H) 35.0 - 70.0 % 03/19/2023 1:37 PM [facility] Lymphocytes % 18.0(L) 20.0 - 43.0 % 03/19/2023 1:37 PM [facility] Monocytes % 6.3 5.0 - 13.0 % 03/19/2023 1:37 PM [facility] Eosinophils % 2.1 0.0 - 6.0 % 03/19/2023 1:37 PM [facility] Basophil % 0.3 0.0 - 2.0 % 03/19/2023 1:37 PM [facility] Neutrophils Absolute 8.58(H) 1.60 - 7.00 10 3/uL 03/19/2023 1:37 PM [facility] Lymphocyte Absolute 2.15 1.10 - 3.90 10 3/uL 03/19/2023 1:37 PM [facility] Monocytes Absolute 0.75 0.26 - 1.07 10 3/uL 03/19/2023 1:37 PM [facility] Eosinophils Absolute 0.25 0.00 - 0.47 10 3/uL 03/19/2023 1:37 PM [facility] Basophils Absolute 0.04 0.00 - 0.08 10 3/uL 03/19/2023 1:37 PM [facility] Immature Granulocytes % 1.3(H) 0.0 - 1.0 % 03/19/2023 1:37 PM [facility] Immature Granulocytes Absolute 0.16 03/19/2023 1:37 PM [facility] Blood BLOOD SPECIMEN / Unknown Venipuncture / Unknown 03/19/2023 1:05 PM CDT 03/19/2023 1:14 PM CDT Lisa Yu [employer]SEWING TEACHER LAB - HEMATO LOGY ORDERABLES [facility] [address] [place] [address], [facility] [phone] * (ABNORMAL) COMPREHENSIVE METABOLIC PANEL (03/19/2023 1:05 PM CDT) Only the most recent of3 resultswithin the time period is included. BUN 55(H) 7 - 26 mg/dL 03/19/2023 1:44 PM [facility] Creatinine 7.58(H) 0.71 - 1.16 mg/dL 03/19/2023 1:44 PM [facility] Sodium 138 136 - 145 mmol/L 03/19/2023 1:44 PM [facility] Potassium 4.0 3.5 - 4.5 mmol/L 03/19/2023 1:44 PM [facility] Chloride 103 98 - 107 mmol/L 03/19/2023 1:44 PM [facility] CO2 22 22 - 29 mmol/L 03/19/2023 1:44 PM [facility] Glucose 244(H) 70 - 115 mg/dL 03/19/2023 1:44 PM [facility] Calcium 8.8 8.4 - 10.2 mg/dL 03/19/2023 1:44 PM [facility] Protein Total 8.1 6.0 - 8.3 g/dL 03/19/2023 1:44 PM [facility] Albumin 3.0(L) 3.4 - 5.0 g/dL 03/19/2023 1:44 PM [facility] Bilirubin Total 0.4 0.2 - 1.2 mg/dL 03/19/2023 1:44 PM [facility] Alkaline Phosphatase 86 40 - 150 U/L 03/19/2023 1:44 PM [facility] ALT 11 5 - 55 U/L 03/19/2023 1:44 PM [facility] AST 9 5 - 34 U/L 03/19/2023 1:44 PM CDT [facility] Anion Gap 17 8 - 18 03/19/2023 1:44 PM CDT [facility] BUN/Creatinine Ratio 7 7 - 23 03/19/2023 1:44 PM CDT [facility] Osmolality Calculated 309(H) 270 - 300 mOsm/kg 03/19/2023 1:44 PM CDT [facility] Albumin/Globulin Ratio 0.6(L) 1.1 - 2.3 03/19/2023 1:44 PM CDT [facility] eGFR by CKD-EPI 8(L) >=90 mL/min/1.7 3 m2 03/19/2023 1:44 PM CDT [facility] Blood BLOOD SPECIMEN / Unknown Venipuncture / Unknown 03/19/2023 1:05 PM CDT 03/19/2023 1:14 PM CDT Lisa Yu APRN-SEWING TEACHER LAB - CHEMIS TRY ORDERABLES [address] [address], [facility] [phone] * (ABNORMAL) MAGNESIUM BLOOD (03/19/2023 1:05 PM CDT) Only the most recent of2 resultswithin the time period is included. Magnesium 2.9(H) 1.6 - 2.6 mg/dL 03/19/2023 1:44 PM CDT [facility] Blood BLOOD SPECIMEN / Unknown Venipuncture / Unknown 03/19/2023 1:05 PM CDT 03/19/2023 1:14 PM CDT Lisa Yu [employer]SEWING TE[employer] LAB - CHEMIS TRY ORDERABLES [address] [address], [place] [phone] * IR CENTRAL LINE REMOVAL (09/25/2022 10:41 AM LOAN REVIEWER) Anatomical Region Laterality Modality X-Ray Angiograph y Narrative 09/25/2022 10:45 AM LOAN REVIEWER Mireya Chadwick MD 09/25/2022 10:47 AM VASCULAR AND INTERVENTIONAL RADIOLOGY EXAMINATION: TUNNELED CENTRAL VENOUS CATHETER REMOVAL Date: 09/25/2022 History: Choco Ramirez is a 41 year old male with history of end-stage renal disease who is now successfully dialyzing through a peritoneal dialysis catheter. Removal of the patient's right thoracic tunneled hemodialysis catheter is requested. Diagnosis code: N18.6 Technique: The risks, benefits, and alternatives were discussed and informed consent was obtained. Prior to beginning the procedure, universal protocol was performed to confirm the patient's identity and the planned procedure. Maximum sterile barriers including cap, mask, hand hygiene, sterile gloves, sterile gown, large sterile drape, and 2% chlorhexidine for cutaneous antisepsis were used. 50 mcg of Fentanyl was administered intravenously. The patient was monitored throughout the entirety of the procedure by the interventional nurse in addition to the physician performing the procedure. The skin adjacent to the right thoracic tunneled catheter entry site was sterilely prepped, draped, and infiltrated with 1% lidocaine. Note, this catheter that was placed at an outside facility was nearly buried to the hub and the catheter cuff near the internal jugular vein. Blunt dissection was then used to free the tunneled hemodialysis catheter cuff. The catheter was removed in its entirety and pressure held at the site to obtain hemostasis. A sterile dressing was applied. The patient tolerated the procedure well and without complications. Findings: The catheter exit site showed no evidence of infection. IMPRESSION: Successful tunneled hemodialysis catheter removal, as described above. Sammy Chadwick M.D. Vascular and Interventional Radiology [facility] V[facility] Access Center [phone] CC: Patient's honey grader and blender: Dr. Placido Aquino Dialysis unit: [facility] Placido Aquino MD IR ORDERABLES * IR PERITONEAL TUNNEL CATH PLACE (08/18/2022 2:31 PM LOAN REVIEWER) Anatomical Region Laterality Modality Abdomen X-Ray Angiograph y Narrative 08/18/2022 2:56 PM LOAN REVIEWER Tim Rodriguez MD 08/18/2022 3:11 PM Choco Ramirez [id number] Date of Procedure: 08/18/2022 Attending Physician: Tim Rodriguez MD Interventional Nephrology Procedure INDICATIONS FOR PROCEDURE: Mr. Ramirez is a 41-year-old man with end-stage renal disease secondary to diabetes mellitus, acid reflux, obstructive sleep apnea, who has been referred for the placement of a peritoneal dialysis catheter. He is currently receiving renal replacement therapy through a right internal jugular vein tunneled dialysis catheter without complications. EXAM: There were no vitals taken for this visit. General appearance: alert, cooperative, no distress Heart: Regular rate, normal S1 and S2, without murmurs Lungs: breath sounds normal and symmetric; no wheezes Abdomen: Soft benign bowel sounds present. No inguinal hernias or abdominal hernias. In the skin the patient appears to have hidradenitis with clear drainage. Extremities: no cyanosis or edema. Indications for the procedure: 1. End-stage renal disease on dialysis. Procedure Planned: 1.PERITONEAL DIALYSIS CATHETER PLACEMENT: INSERTION OF PD CATHETER, INCLUDING CONTRAST INJECTION, S & I; 68641 2.SEDATION CODES: SEDATION - MODERATE INITIAL; 41697 The attending surgeon and performing the procedure: Tim Rodriguez MD Senior Java Ui Developer: RT Yaima PROCEDURE PERFORMED: 1. PERITONEAL DIALYSIS CATHETER PLACEMENT: INSERTION OF PD CATHETER, INCLUDING CONTRAST INJECTION, S & I; 81499 2. PERITONEAL DIALYSIS CATHETER PLACEMENT: Pre sternal extension placement: 60218 (ORTIZ) 3. SEDATION CODES: SEDATION - MODERATE INITIAL; 35692 4. SEDATION CODES: SEDATION - MODERATE ADDITAIONAL 15 MINUTES; 43578 X for Findings: 1. The peritoneal cavity was accessed under fluoroscopic guidance. A 6 Telugu vascular sheath is observed in the peritoneal cavity to the left of the midline at the level of the iliac crest. A 0.035 hydrophilic guidewire is observed crossing the midline along the true floor of the pelvis. 2. A 60 cm single cuff curled tip intraperitoneal dialysis catheter is observed entering the peritoneal cavity the level of the iliac crest with the curled tip Tad in the true floor of the pelvis along the midline. A titanium connector is observed at the left flank and the presternal extension extending towards the epigastrium with the exit site along the left upper quadrant. The radiopaque line shows that the catheter is not kinked along the entire trajectory. 3. Contrast injection through the catheter confirmed that there are no kinks along the entire presternal extension and intraperitoneal segment. Contrast dissipated within the floor of the pelvis outlined in the bowel loops. Description of the procedure: After informed consent was obtained Choco Ramirez was taken to the angiography suite and placed on the fluoroscopy table in the supine position. Prior to beginning the procedure, universal protocol was performed to confirm the patient's identity and the planned procedure. Maximum sterile barriers including cap, mask, hand hygiene, sterile gloves, sterile gown, large sterile drape, sterile gel, sterile ultrasound probe cover, and 2% chlorhexidine for cutaneous antisepsis were used. The Abdomen and Thorax were prepared with Chlorhexidine from the sinfisis pubis to the supra- sternal notch and draped in the appropriate sterile fashion as described above. The subcutaneous tissue left to the umbilicus was infiltrated with 1 % lidocaine. A 5 cm incision was made using a number 15 blade. The anterior sheath of the rectus muscle was exposed using blunt dissection. A Veress needle sleeved with a 6 F vascular sheath and connected to Normal Saline through a sterile tubing, was used to puncture the Rectus muscle and access the peritoneal cavity. Free flowing NS indicated access into the peritoneal cavity. At this time 2 ml of contrast were injected into the peritoneum and observed for dissipation in between bowel loops. The sheath was then advanced into the peritoneum and the needle removed. A 0.035 angled - tip hydrophilic glide wire was advanced into the peritoneal cavity in the direction of the pelvic floor across the midline. The 6 F sheath was removed and a 16 F peel away sheath introducer and dilator combo were advanced as a unit over the wire into the peritoneal cavity by modified Seldinger technique. Care was taken to locate the tip in the pelvic floor. A 60 cm single cuff Sid curl catheter was prepared for insertion, the dilator and wire were removed leaving the sheath introducer in place.The PD catheter was then advanced through the peel away sheath with the aid of a metal straightening stylete. The pre peritoneal cuff was buried in the rectus muscle manually and the sheath was pealed. The catheter was flushed with 100 mL of normal saline and 100 mL of clear fluid were returned without resistance. At this time attention was turned to the placement of the presternal extension. After infiltrating the subcutaneous tissue along a 2 cm length left to measure the midline in the epigastrium, a 2 cm incision was made with a 15 Blade. The rectus muscle was exposed using blunt dissection. A tunnel was made from the epigastric incision to the paraumbilical incision using a Armen tunnel. The intraperitoneal catheter and the presternal extension were adjusted to length and connected using a titanium connector. Two surgical loop sutures were used to secure the catheter to the titanium connector using 2-0 Prolene. The catheter was then advanced through the tunneler device and tunnel along the left of the midline up to the epigastric incision allowing the most internal of the subcutaneous cuffs to be buried. The rest of the catheter was pulled through the incision. And exit site was chosen in the left upper quadrant. A 18 gauge needle was advanced to the exit site from the epigastric incision. A 0.035 hydrophilic guidewire was advanced through the needle. A 16 Telugu peel-away sheath was advanced over the wire from the apical incision to the exit site in the left flank through the subcutaneous tissue. The inner dilator and wire were removed. The catheter was advanced through the peel-away sheath and the most external of the subcutaneous cuffs was buried 2 cm from the exit site. The catheter was flushed with 200 ml of NS and 200 ml of clear fluid were returned. The exit site and tunnel tract were infiltrated with 1 percent lidocaine. An additional 100 ml of NS were flushed and 100 ml of clear fluid was returned. The catheter was locked with 5000 units of heparin and Capped. At this time the subcutaneous tissue was with 2 [id number] sutures using 2-0 vicryl and and skin was closed with a single running subcuticular suture using 2-0 Prolene along both of the incision. Sterile dressing was applied. Moderate sedation was ordered by wy and administer intravenously and monitored by the procedure nurse as an independent observer who was present throughout the procedure. The following parameters were monitored: Oxygen saturation, heart rate, blood pressure, End Tidal CO2, and response to care. Intra-service sedation start time was 1:14 p.m. and end time was 2:22 p.m.. Total physician intra service sedation time was 60 a minutes. The patient tolerated the procedure well with Versed and fentanyl for moderate conscious sedation 1 percent lidocaine for local anesthesia. Antibiotic Prophylaxis: 1 g of Ancef IV IV Versed: 4 mg Versed wasted: 0 mg IV Fentanyl: 150 mcg Fentanyl wasted: 50 mcg IP Contrast: 5 mL of Isovue 3 7 Fluoroscopy time: 2.14 min. Absorbed patient dose: 44.92 mGy. COMPLICATIONS: No. IMPRESSION: Successful placement of a intraperitoneal hemodialysis catheter with a presternal extension using fluoroscopic guidance under moderate conscious sedation. No immediate complications related to the procedure. RECOMMENDATIONS: 1. Flush the catheter weekly until clear for use. 2. Keep incisions and dressings dry at all times over the next 2 weeks. 3. Follow-up in 2 weeks for incision check and suture room. Tim Rodriguez MD 08/18/2022 2:56 PM [id number] [id number] Demar stratton MD [facility] Anni Stratton MD IR ORDERABLES * PHOSPHOLIPASE A2 RECEPTOR AB IGG RFLX TITER (07/09/2022 11:06 AM LOAN REVIEWER) Phospholipase A2 Receptor IgG <1:10 <1:10 07/11/2022 7:15 AM LOAN REVIEWER [employer] ([facility]) Comment: Phospholipase A2 Receptor Antibody, IgG is not detected. No further testing will be performed. Performed By: [facility] [address] [place] [address] Review Scheduling Coordinator: David Payne MD, PhD Blood BLOOD SPECIMEN / Unknown Lab Venipuncture / Unknown 07/09/2022 11:06 AM LOAN REVIEWER 07/09/2022 11:59 AM LOAN REVIEWER Chela Lanier MD LAB - CHEMISTRY MICHAELA HOLMAN [employer] ([facility]) [address] * (ABNORMAL) PTH INTACT W/O CALCIUM (07/09/2022 11:06 AM LOAN REVIEWER) PTH Intact 465.6(H) 8.0 - 77.0 pg/mL 07/09/2022 12:42 PM LOAN REVIEWER [facility] Blood BLOOD SPECIMEN / Unknown Lab Venipuncture / Unknown 07/09/2022 11:06 AM LOAN REVIEWER 07/09/2022 12:04 PM LOAN REVIEWER Chela Lanier MD LAB - CHEMISTRY MICHAELA HOLMAN Performing Organization Address City/[facility]/ZIP Co de Phone Number [address] [address], [facility] [phone] * HIV-1 HIV-2 ANTIBODY + HIV P24 AG PANEL (07/09/2022 11:06 AM LOAN REVIEWER) HIV Antigen/Antibod y 1 & 2 Non-reacti ve Non-react amaury 07/09/2022 12:51 PM LOAN REVIEWER [facility] Comment:No Laboratory eviden ce of HIV infection. Blood BLOOD SPECIMEN / Unknown Lab Venipuncture / Unknown 07/09/2022 11:06 AM LOAN REVIEWER 07/09/2022 11:59 AM LOAN REVIEWER Chela Lanier MD LAB - CHEMISTRY MICHAELA HOLMAN Performing Organization Address [facility]/ZIP Co de Phone Number [address] [address], [facility] [phone] * DNA ANTIBODY DS CRITHIDIA TITER (07/09/2022 11:06 AM LOAN REVIEWER) dsDNA Antibody IgG <1:10 <1:10 2021 12:02 AM LOAN REVIEWER [facility] ([facility]) Comment: INTERPRETIVE INFORMATION: Double-Stranded DNA (dsDNA) Antibody, IgG by IFA (using Crithidia luciliae) Positivity for anti-double stranded DNA (anti-dsDNA) IgG antibody is a diagnostic criterion of systemic lupus erythematosus (SLE). The presence of the anti-dsDNA IgG antibody is identified by IFA titer (Crithidia luciliae indirect fluorescent test [JAROD]). JAROD is highly specific for SLE with a sensitivity of 50-60 percent. Some patients with early or inactive SLE may be positive for anti-dsDNA IgG by RADHA but negative by JAROD. If the JAROD result is negative but the patient has a positive RADHA and clinical suspicion remains, consider antinuclear antibody (AMISHA) testing by IFA. Additional information and recommendations for testing may be found at [email or web address]/[email or web address] ndex.html. Performed By: [facility] [address] [place] [address] Review Scheduling Coordinator: David Payne MD, PhD Blood BLOOD SPECIMEN / Unknown Lab Venipuncture / Unknown 07/09/2022 11:06 AM LOAN REVIEWER 07/09/2022 11:59 AM LOAN REVIEWER Chela Lanier MD LAB - SEROLOGY ORDER SHAUNA Performing Organization Address City/[facility]/ZIP Co de Phone Number [facility] ([facility]) [address] [place] [address] * TSH REFLEX FREE T4 (07/09/2022 11:06 AM LOAN REVIEWER) TSH 1.909 0.350 - 4.940 uIU/mL 07/09/2022 12:57 PM LOAN REVIEWER [facility] Blood BLOOD SPECIMEN / Unknown Lab Venipuncture / Unknown 07/09/2022 11:06 AM LOAN REVIEWER 07/09/2022 12:05 PM LOAN REVIEWER Chela Lanier MD LAB - CHEMISTRY ORDDonna HOLMAN Performing Organization Address City/[facility]/ZIP Co de Phone Number [address] [phone], [facility] [phone] * (ABNORMAL) URIC ACID BLOOD (07/09/2022 11:06 AM LOAN REVIEWER) Uric Acid 8.2(H) 3.5 - 7.2 mg/dL 07/09/2022 12:34 PM LOAN REVIEWER [facility] Blood BLOOD SPECIMEN / Unknown Lab Venipuncture / Unknown 07/09/2022 11:06 AM LOAN REVIEWER 07/09/2022 12:04 PM LOAN REVIEWER Chela Lanier MD LAB - CHEMISTRY MICHAELA HOLMAN [facility] [address] [place] [address], [facility] [phone] * (ABNORMAL) URINALYSIS REFLEX TO MICROSCOPIC NO CULTURE (07/09/2022 11:06 AM LOAN REVIEWER) Color UA Yellow Straw, Yellow 07/09/2022 12:37 PM [facility] Clarity UA Clear Clear 07/09/2022 12:37 PM [facility] Specific [place] UA 1.025 1.005 - 1.030 07/09/2022 12:37 PM [facility] pH UA 5.5 5.0 - 8.0 pH 07/09/2022 12:37 PM [facility] Protein UA 3+(A) Negative 07/09/2022 12:37 PM [facility] Glucose UA 1+(A) Negative 07/09/2022 12:37 PM [facility] Ketone UA Negative Negative 07/09/2022 12:37 PM [facility] Bilirubin UA Negative Negative 07/09/2022 12:37 PM [facility] Blood UA 2+(A) Negative 07/09/2022 12:37 PM [facility] Nitrite UA Negative Negative 07/09/2022 12:37 PM [facility] Leukocyte Esterase Negative Negative 07/09/2022 12:37 PM [facility] Urobilinogen UA Negative Negative mg/dL 07/09/2022 12:37 PM [facility] RBC UA 6-10(A) None Seen, 0-2, 3-5 /HPF 07/09/2022 12:37 PM [facility] WBC UA 6-10(A) None Seen, 0-5 /HPF 07/09/2022 12:37 PM [facility] Squamous Epithelial Cells UA None Seen None Seen, 0-2, 3-5 /HPF 07/09/2022 12:37 PM [facility] Urine URINE SPECIMEN OBTAINED BY CLEAN CATCH PROCEDURE / Unknown Collection / Unknown 07/09/2022 11:06 AM LOAN REVIEWER 07/09/2022 11:59 AM [facility] - 07/09/2022 12:37 PM LOAN REVIEWER Chela Lanier MD LAB - URINALYSIS ORD ERABLES [facility] [address] [place] [phone], [facility] [phone] * (ABNORMAL) C-REACTIVE PROTEIN (07/09/2022 11:06 AM LOAN REVIEWER) Pathologist [facility] C-Reactive Protein 7.5(H) <=0.5 mg/dL 07/09/2022 12:33 PM LOAN REVIEWER [facility] Blood BLOOD SPECIMEN / Unknown Lab Venipuncture / Unknown 07/09/2022 11:06 AM LOAN REVIEWER 07/09/2022 11:59 AM LOAN REVIEWER Chela Lanier MD LAB - CHEMISTRY ORDE RABLES Performing Organization Address [facility]/ZIP Co de Phone Number [address] [address], [facility] [phone] * AMISHA BLOOD SCREEN W/REFLEX TITER (07/09/2022 11:06 AM LOAN REVIEWER) Pathologist [facility] AMISHA IgG None Detected None Detected 07/10/2022 10:32 PM LOAN REVIEWER [employer] ([facility]) Comment: If suspicion of connective tissue disease is strong and AMISHA EIA is negative, consider testing for AMISHA by IFA ([id number]). INTERPRETIVE INFORMATION: Anti-Nuclear Antibodies (AMISHA), IgG by RADHA Antinuclear Antibodies (AMISHA), IgG by RADHA: AMISHA specimens are screened using enzyme-linked immunosorbent assay (RADHA) methodology. All RADHA results reported as Detected are further tested by indirect fluorescent assay (IFA) using HEp-2 substrate with an IgG-specific conjugate. The AMISHA RADHA screen is designed to detect antibodies against dsDNA, histones, SS-A (Ro), SS-B (La), West, West/CLERICAL ADJUDICATOR, Scl-70, Portia-1, centromeric proteins, other antigens extracted from the HEp-2 cell nucleus. AMISHA RADHA assays have been reported to have lower sensitivities than AMISHA IFA for systemic autoimmune rheumatic diseases (SARD). Negative results do not necessarily rule out SARD. Performed By: [facility] [address] [place] [address] Review Scheduling Coordinator: David Payne MD, PhD Blood BLOOD SPECIMEN / Unknown Lab Venipuncture / Unknown 07/09/2022 11:06 AM LOAN REVIEWER 07/09/2022 11:59 AM LOAN REVIEWER Chela Lanier MD LAB - CHEMISTRY MICHAELA HOLMAN [employer] ([facility]) [address] [place] [address], [facility] * RENIN ACTIVITY (07/09/2022 11:06 AM LOAN REVIEWER) Pathologist [facility] Renin 0.4 ng/mL/hr 07/13/2022 8:59 AM LOAN REVIEWER [employer] ([facility]) Comment: INTERPRETIVE INFORMATION: Renin Activity Adult, Normal sodium diet: Supine ................. 0.2-1.6 ng/mL/hr Upright ................ 0.5-4.0 ng/mL/hr Children, Normal sodium diet, Supine: (1-7 days) ..... 2.0-35.0 ng/mL/hr Cord blood ............. 4.0-32.0 ng/mL/hr 1-12 mos ............... 2.4-37.0 ng/mL/hr 13 mos-3 yrs ........... 1.7-11.2 ng/mL/hr 4-5 yrs ................ 1.0- 6.5 ng/mL/hr 6-10 yrs ............... 0.5- 5.9 ng/mL/hr 11-15 yrs .............. 0.5- 3.3 ng/mL/hr Children, normal sodium diet, Upright: 0-3 yrs ................ Not Available 4-5 yrs ................ Less than or equal to 15 ng/mL/hr 6-10 yrs ............... Less than or equal to 17 ng/mL/hr 11-15 yrs .............. Less than or equal to 16 ng/mL/hr Plasma renin activity measures enzyme ability to convert angiotensinogen to angiotensin I and is limited by the availability of angiotensinogen. Plasma renin activity is not an accurate indicator of enzyme activity when angiotensinogen is decreased. This test was developed and its performance characteristics determined by [facility]. It has not been cleared or approved by the US Food and Drug Administration. This test was performed in a CLIA certified laboratory and is intended for clinical purposes. Performed By: [place] [address] Review Scheduling Coordinator: David Payne MD, PhD Blood BLOOD SPECIMEN / Unknown Lab Venipuncture / Unknown 07/09/2022 11:06 AM LOAN REVIEWER 07/09/2022 12:00 PM LOAN REVIEWER Chela Lanier MD LAB - CHEMISTRY MICHAELA HOLMAN [facility]) [address] [place] [address] * (ABNORMAL) HEMOGLOBIN A1C (07/09/2022 11:06 AM [facility]) Only the most recent of2 resultswithin the time period is included. Hemoglobin A1c 6.6(H) <=5.6 % 07/09/2022 2:34 [...] to evaluate metabolic control in patients. Reference: [place] [employer], Standards of Care in Diabetes -2020 In patients 70 years and older consider HbA1c target range of 7.0-7.5% (Reference: Juancho Wilkerson et al. JAMDA. 2012) The Sebia assay for the measurement of HbA1c is a National Glycohemoglobin Standardization Program (NGSP) certified method. Blood BLOOD SPECIMEN / Unknown Lab Venipuncture / Unknown 07/09/2022 11:06 AM LOAN REVIEWER 07/09/2022 12:04 PM LOAN REVIEWER Chela Lanier MD LAB - CHEMISTRY MICHAELA HOLMAN Performing Organization Address [facility]/ZIP Co de Phone Number [address] [phone], [facility] [phone] * GLOMERULAR BASE MEMBRANE ANTIBODY IGG (07/09/2022 11:06 AM LOAN REVIEWER) GBM Antibody IgG (EU) 0 0 - 19 AU/mL 07/13/2022 2:56 PM LOAN REVIEWER [employer] ([facility]) Comment: INTERPRETIVE INFORMATION: GBM Ab, IgG by Multiplex Bead Assay 19 AU/mL or Less ......... Negative 20-25 AU/mL .............. Equivocal 26 AU/mL or Greater ...... Positive The presence of anti-glomerular basement membrane (GBM) antibodies by Multiplex Bead Assay may aid in the diagnosis of Goodpasture syndrome. False positive results may occur due to reactivity against other chains of type IV collagen. If Multiplex Bead Assay is negative but there is a strong suspicion for disease, renal biopsy may be indicated. A renal biopsy may also be essential in suspected Goodpasture disease with renal involvement, allowing diagnostic confirmation and assessment of renal prognosis. Performed By: [facility] [address] [place] [address] Review Scheduling Coordinator: David Payne MD, PhD Blood BLOOD SPECIMEN / Unknown Lab Venipuncture / Unknown 07/09/2022 11:06 AM LOAN REVIEWER 07/09/2022 11:59 AM LOAN REVIEWER Chela Lanier MD LAB - CHEMISTRY MICHAELA HOLMAN Performing Organization Address City/[facility]/ZIP Co de Phone Number [facility]) [address] * (ABNORMAL) VITAMIN D 25-HYDROXY (07/09/2022 11:06 AM LOAN REVIEWER) Vitamin D, 25 Hydroxy 16.0(L) 30.0 - 80.0 ng/mL 07/09/2022 12:53 PM LOAN REVIEWER [facility] Comment: The recommendations for 25-Hydroxy Vitamin D clinical decision points are as follows: Deficient: <20.0 ng/mL Insufficient: 20.0 - 29.9 ng/mL Sufficient: 30.0 - 100.0 ng/mL Potential Toxicity: >100 ng/mL Reference: The Endocrine Society Clinical Practice Guidelines. 2011 If the 25-Hydroxy Vitamin D results are inconsitent with clinical evidence, it is recommended that follow-up testing using a method such as LC/MS/MS be performed to confirm the result. Blood BLOOD SPECIMEN / Unknown Lab Venipuncture / Unknown 07/09/2022 11:06 AM LOAN REVIEWER 07/09/2022 12:04 PM LOAN REVIEWER Chela Lanier MD LAB - CHEMISTRY MICHAELA HOLMAN [facility] Organization Address City/State/ZIP Co de Phone Number [address] [phone], [facility] [phone] * ALDOSTERONE BLOOD (07/09/2022 11:06 AM LOAN REVIEWER) Aldosterone 23.3 ng/dL 07/11/2022 9:53 PM LOAN REVIEWER [employer] ([facility]) Comment: INTERPRETIVE INFORMATION: Aldosterone, Serum Reference intervals for age 15 and older: Upright ......... 4.0 - 31.0 ng/dL Supine .......... Less than or equal to 16.0 ng/dL Unspecified ..... Less than or equal to 31.0 ng/dL Normal serum levels of aldosterone are dependent on the sodium intake and whether the patient is upright or supine. High sodium intake will tend to suppress serum aldosterone, whereas low sodium intake will elevate serum aldosterone. The reference intervals for serum aldosterone are based on normal sodium intake. Access complete set of age- and/or gender-specific reference intervals for this test in the [facility] Test Directory ([employer]). Performed By: [facility] [address] [place] [address] Review Scheduling Coordinator: David Payne MD, PhD Blood BLOOD SPECIMEN / Unknown Lab Venipuncture / Unknown 07/09/2022 11:06 AM LOAN REVIEWER 07/09/2022 11:59 AM LOAN REVIEWER Chela Lanier MD LAB - CHEMISTRY MICHAELA HOLMAN Performing Organization Address [facility] de Phone Number [facility] [employer] [facility]) [address] [place] [address] * (ABNORMAL) KAPPA/LAMBDA LITE CHAIN FREE PANEL (07/09/2022 11:06 AM LOAN REVIEWER) [place] Quant Free Light Chain 279.93(H) 3.30 - 19.40 mg/L 07/10/2022 10:38 PM LOAN REVIEWER [facility] ([facility]) Comment: INTERPRETIVE INFORMATION: [place] Qnt Free Light Chains Undetected antigen excess is a rare event but cannot be excluded. Free light chain results should always be interpreted in conjunction with other clinical and laboratory findings. Lambda Free Light Chain Quantitative 210.94(H) 5.71 - 26.30 mg/L 07/10/2022 10:38 PM LOAN REVIEWER [employer] ([facility]) Comment: INTERPRETIVE INFORMATION: Lambda Qnt Free Light Chains Undetected antigen excess is a rare event but cannot be excluded. Free light chain results should always be interpreted in conjunction with other clinical and laboratory findings. [place]/Lambda Free Light Chain ratio 1.33 0.26 - 1.65 07/10/2022 10:38 PM LOAN REVIEWER [employer] ([facility]) Comment: Performed By: [employer] [address] [place] [address] Review Scheduling Coordinator: David Payne MD, PhD Blood BLOOD SPECIMEN / Unknown Lab Venipuncture / Unknown 07/09/2022 11:06 AM LOAN REVIEWER 07/09/2022 11:59 AM LOAN REVIEWER Chela Lanier MD LAB - CHEMISTRY MICHAELA HOLMAN Performing Organization Address [facility]/ZIP Co de Phone Number [facility] ([facility]) [address] * (ABNORMAL) ERYTHROCYTE SEDIMENTATION RATE (07/09/2022 11:06 AM LOAN REVIEWER) Erythrocyte Sedimentation Rate Westergren 105(H) 0 - 15 MM/HR 07/09/2022 12:34 PM LOAN REVIEWER [facility] Blood BLOOD SPECIMEN / Unknown Lab Venipuncture / Unknown 07/09/2022 11:06 AM LOAN REVIEWER 07/09/2022 12:04 PM LOAN REVIEWER Chela Lanier MD LAB - HEMATOLOGY ORD ERABLES Performing Organization Address City/[facility]/ZIP Co de Phone Number [address] [address], [place] [phone] * COMPLEMENT C4 (07/09/2022 11:06 AM LOAN REVIEWER) Complement C4 39 15 - 57 mg/dL 07/09/2022 12:39 PM LOAN REVIEWER [facility] Blood BLOOD SPECIMEN / Unknown Lab Venipuncture / Unknown 07/09/2022 11:06 AM LOAN REVIEWER 07/09/2022 12:05 PM LOAN REVIEWER Chela Lnaier MD LAB - SEROLOGY ORDER SHAUNA Performing Organization Address City/[facility] Co de Phone Number [address] [address], [place] [phone] * (ABNORMAL) PROTEIN CREATININE RATIO URINE RANDOM PNL (07/09/2022 11:06 AM LOAN REVIEWER) Protein Urine 450 Not Established mg/dL 07/09/2022 1:03 PM [facility] Comment:Result obtained by d ilution. Creatinine Urine 43 Not Established mg/dL 07/09/2022 1:03 PM [facility] Comment:Result obtained by d ilution. Protein/Creati nine Ratio Urine 10.47(H) <0.10 07/09/2022 1:03 PM [facility] Urine URINE SPECIMEN OBTAINED BY CLEAN CATCH PROCEDURE / Unknown Collection / Unknown 07/09/2022 11:06 AM LOAN REVIEWER 07/09/2022 11:59 AM LOAN REVIEWER Chela Lanier MD LAB - URINE CHEMISTR Y ORDERABLES Performing Organization Address City/[facility]/ZIP Co de Phone Number [address] [address], [place] [phone] * (ABNORMAL) PHOSPHORUS BLOOD (07/09/2022 11:06 AM LOAN REVIEWER) Pathologist [facility] Phosphorus 7.8(H) 2.8 - 5.1 mg/dL 07/09/2022 12:39 PM LOAN REVIEWER [facility] Blood BLOOD SPECIMEN / Unknown Lab Venipuncture / Unknown 07/09/2022 11:06 AM LOAN REVIEWER 07/09/2022 12:05 PM LOAN REVIEWER Chela Lanier MD LAB - CHEMISTRY MICHAELA HOLMAN [facility] [address] [place] [address], [facility] [phone] * HEPATITIS B SURFACE ANTIBODY (07/09/2022 11:06 AM LOAN REVIEWER) [facility] Hepatitis B Virus Surface Antibody Non-react amaury Non-react amaury 07/09/2022 12:51 PM LOAN REVIEWER [facility] Comment: < 8 mIU/mL Hepatitis B surface Antibody (HBsAb). Nonreactive for HBsAb - individual is considered not immune to Hepatitis B Virus infection. Hepatitis B Surface Antibody Quantitative 0.4 <8.0 mIU/mL 07/09/2022 12:51 PM [facility] Comment: Hepatitis B Surface Antibody Numeric Result Interpretation: Nonreactive: <8.0 mIU/mL Indeterminate: 8.0 - 12.0 mIU/mL Reactive: >12.0 mIU/mL Blood BLOOD SPECIMEN / Unknown Lab Venipuncture / Unknown 07/09/2022 11:06 AM LOAN REVIEWER 07/09/2022 11:59 AM LOAN REVIEWER Chela Lanier MD LAB - CHEMISTRY MICHAELA HOLMAN [facility] [address] [place] [address], [facility] [phone] * HEPATITIS B SURFACE ANTIGEN W RFLX CONFIRMATION (07/09/2022 11:06 AM LOAN REVIEWER) Pathologist [facility] Hepatitis B Virus Surface Antigen Non-reacti ve Non-reacti ve 07/09/2022 12:51 PM LOAN REVIEWER [facility] Blood BLOOD SPECIMEN / Unknown Lab Venipuncture / Unknown 07/09/2022 11:06 AM LOAN REVIEWER 07/09/2022 11:59 AM LOAN REVIEWER Chela Lanier MD LAB - CHEMISTRY MICHAELA HOLMAN Performing Organization Address City/[facility]/ZIP Co de Phone Number [address] [address], [facility] [phone] * T4 FREE (07/09/2022 11:06 AM LOAN REVIEWER) T4 Free 1.0 0.7 - 1.5 ng/dL 07/09/2022 12:57 PM LOAN REVIEWER [facility] Blood BLOOD SPECIMEN / Unknown Lab Venipuncture / Unknown 07/09/2022 11:06 AM LOAN REVIEWER 07/09/2022 12:05 PM LOAN REVIEWER Chela Lanier MD LAB - CHEMISTRY MICHAELA HOLMAN [address] [address], [facility] [phone] * (ABNORMAL) PROTEIN ELECTROPHORESIS BLOOD (07/09/2022 11:06 AM LOAN REVIEWER) Interpretation Serum PE See Comment Normal Pattern 07/17/2022 2:19 PM [facility] Comment: Serum capillary electrophoresis shows characteristic bands corresponding to albumin, alpha and beta globulins and polyclonal immunoglobulins. No monoclonal immunoglobulins detected. An increase in polyclonal immunoglobulins is observed. Non-secretory myeloma (NSM) and light chain only myeloma cannot be excluded based on this result. Recommend serum free light chain measurements for complete evaluation of plasma cell disorders. Patricia Solares MD Resident PGY-1, Pathology Protein Total 7.9 6.0 - 8.3 g/dL 07/17/2022 2:19 PM [facility] Albumin 3.4 3.3 - 5.6 g/dL 07/17/2022 2:19 PM [facility] Alpha-1 Globulins 0.4 0.2 - 0.4 g/dL 07/17/2022 2:19 PM [facility] Alpha-2 Globulins 1.2(H) 0.5 - 1.0 g/dL 07/17/2022 2:19 PM [facility] Beta Globulins 1.1 0.6 - 1.1 g/dL 07/17/2022 2:19 PM [facility] Gamma Globulins 1.7(H) 0.6 - 1.6 g/dL 07/17/2022 2:19 PM [facility] Blood BLOOD SPECIMEN / Unknown Lab Venipuncture / Unknown 07/09/2022 11:06 AM LOAN REVIEWER 07/09/2022 11:59 AM LOAN REVIEWER Chela Lanier MD LAB - CHEMISTRY MICHAELA HOLMAN [address] [address], [place] [phone] * (ABNORMAL) IRON + TRANSFERRIN PANEL (07/09/2022 11:06 AM LOAN REVIEWER) Only the most recent of2 resultswithin the time period is included. Pathologist [facility] Iron 33(L) 50 - 175 ug/dL 07/09/2022 12:33 PM [facility] Transferrin 189 174 - 382 mg/dL 07/09/2022 12:33 PM [facility] Transferrin Saturation % 14(L) 16 - 50 % 07/09/2022 12:33 PM [facility] TIBC Calculated 236(L) 240 - 450 ug/dL 07/09/2022 12:33 PM [facility] Blood BLOOD SPECIMEN / Unknown Lab Venipuncture / Unknown 07/09/2022 11:06 AM LOAN REVIEWER 07/09/2022 11:59 AM LOAN REVIEWER Chela Lanier MD LAB - CHEMISTRY MICHAELA HOLMAN [address] [address], [place] [phone] * HEPATITIS C ANTIBODY (07/09/2022 11:06 AM LOAN REVIEWER) Hepatitis C Antibody Non-react amaury Non-reac tive 07/09/2022 12:51 PM [facility] Comment:Hepatitis C Antibody screen indicates no serologic evidence of past or current infection with Hepatitis C Virus. Patients with unexplained liver disease who are immunocompromised or suspected of having acute Hepatitis C infection may benefit from Nucleic Acid Test (NICO) for Hepatitis C Viral RNA to confirm Hepatitis C status. Blood BLOOD SPECIMEN / Unknown Lab Venipuncture / Unknown 07/09/2022 11:06 AM LOAN REVIEWER 07/09/2022 11:59 AM LOAN REVIEWER Chela Lanier MD LAB - CHEMISTRY MICHAELA HOLMAN [address] [address], [place] [phone] * FERRITIN (07/09/2022 11:06 AM LOAN REVIEWER) Ferritin 121 22 - 275 ng/mL 07/09/2022 12:51 PM [facility] Blood BLOOD SPECIMEN / Unknown Lab Venipuncture / Unknown 07/09/2022 11:06 AM LOAN REVIEWER 07/09/2022 11:59 AM LOAN REVIEWER Chela Lanier MD LAB - CHEMISTRY MICHAELA HOLMAN [address] [address], [place] [phone] * (ABNORMAL) LIPID PROFILE (07/09/2022 11:06 AM LOAN REVIEWER) Cholesterol Total 281(H) <200 mg/dL 07/09/2022 12:39 PM [facility] HDL 40(L) >40 mg/dL 07/09/2022 12:39 PM [facility] Comment: ATP III Classification of HDL Cholesterol: <40 mg/dL: Considered a major risk factor. >60 mg/dL: Considered a negative risk factor. LDL Calculated 195(H) <100 mg/dL 07/09/2022 12:39 PM [facility] Comment: ATP III Classification of LDL Cholesterol: <100 mg/dL: Optimal 100 - 129 mg/dL: Near Optimal/Above Optimal 130 - 159 mg/dL: Borderline High 160 - 189 mg/dL: High >190 mg/dL: Very High Triglycerides 229(H) <150 mg/dL 07/09/2022 12:39 PM LOAN REVIEWER [facility] Comment: ATP III Classification of Triglycerides: <150 mg/dL: Normal 150 - 199 mg/dL: Borderline High 200 - 400 mg/dL: High >500 mg/dL: Very High Blood BLOOD SPECIMEN / Unknown Lab Venipuncture / Unknown 07/09/2022 11:06 AM LOAN REVIEWER 07/09/2022 12:05 PM LOAN REVIEWER Chela Lanire MD LAB - CHEMISTRY MICHAELA HOLMAN [address] [address], [place] [phone] * COMPLEMENT C3 (07/09/2022 11:06 AM LOAN REVIEWER) Complement C3 141 82 - 193 mg/dL 07/09/2022 12:39 PM [facility] Blood BLOOD SPECIMEN / Unknown Lab Venipuncture / Unknown 07/09/2022 11:06 AM LOAN REVIEWER 07/09/2022 12:05 PM LOAN REVIEWER Chela Lanier MD LAB - CHEMISTRY MICHAELA HOLMAN Performing Organization Address [facility]/ZIP Co de Phone Number [address] [address], [place] [phone] * US RETROPERITONEAL COMPLETE (KIDNEYS) (01/29/2016 3:33 PM CDT) Anatomical Region Laterality Modality Abdomen Ultrasound 01/29/2016 3:54 PM CDT Impressions 01/29/2016 3:55 PM CDT Normal renal ultrasound. No hydronephrosis. Narrative 01/29/2016 3:55 PM CDT Renal Ultrasound INDICATION: Chronic kidney disease. Comparison: Second, 2014. TECHNIQUE: Grayscale and color images of the kidneys and bladder were obtained FINDINGS: Both kidneys are within normal limits for size and no hydronephrosis or stone are seen. Renal echogenicity is normal. The bladder is partially filled. The right kidney measures 12.1 x 4.6 x 5.7 cm. The left kidney measures 11.5 x 6.5 x 5.6 cm. Procedure Note Juan Manuel Vo MD - 01/29/2016 Renal Ultrasound INDICATION: Chronic kidney disease. Comparison: Second, 2014. TECHNIQUE: Grayscale and color images of the kidneys and bladder were obtained FINDINGS: Both kidneys are within normal limits for size and no hydronephrosis or stone are seen. Renal echogenicity is normal. The bladder is partially filled. The right kidney measures 12.1 x 4.6 x 5.7 cm. The left kidney measures 11.5 x 6.5 x 5.6 cm. IMPRESSION Normal renal ultrasound. No hydronephrosis. Sudhir Dawson MD US ORDERABLES * VAS ARTERIAL ANKLE ARM INDEX (NOBLE - LIMITED PRESSURE STUDY) (01/29/2016 2:26 PM CDT) Anatomical Region Laterality Modality Ultrasound 01/29/2016 2:02 PM CDT Narrative Procedure Note Diamond Null MD - 01/29/2016 [place] [address] Lower Extremity Arterial Doppler Report Pat.Name: CHOCO RAMIREZ Pat.ID: [id number] St.Date: 01/29/2016 Exam Time: 2:02:00 PM Study Type:NOBLE/PVR Age: 3 1980,35Y Sex: MALE Sonogrphr: Aby Martínez RVT Pat. Stat.:Outpatient Reason for Study:Pain -Leg, right Procedures:Ankle Arm Index Visit ID: [id number] SUMMARY: There is no evidence of arterial insufficiency in either the right or left lower extremity. FINDINGS: Procedure: The arterial vasculature of the lower extremities was evaluated by analysis of Doppler pressures and waveforms obtained in the legs at rest. Study Quality: This study is of adequate technical quality. Rt Leg: Arterial doppler waveforms of the right OFFICE SPEC are triphasic. Arterial doppler waveforms of the right DPA are triphasic. Lt Leg: Arterial doppler waveforms of the left OFFICE SPEC are triphasic. Arterial doppler waveforms of the left DPA are triphasic. MEASUREMENTS: PRESSURES Left NOBLE (DP) NOBLE (DP) 1.03 Left NOBLE (PT) NOBLE (PT) 1.12 Left Ankle DP AnkleDP P 155 mmHg Left Ankle PT AnklePT P 168 mmHg Left Brachial Brach P 129 mmHg Right NOBLE (DP) NOBLE (DP) 1.09 Right NOBLE (PT) NOBLE (PT) 1.15 Right Ankle DP AnkleDP P 163 mmHg Right Ankle PT AnklePT P 172 mmHg Right Brachial Brach P 150 mmHg Signed 01/29/2016 03:34 PM Diamond Null MD Sudhir Dawson MD VASCULAR LAB ORDERAB LES * (ABNORMAL) RENAL FUNCTION PANEL (10/10/2014 12:11 PM LOAN REVIEWER) Glucose 172(H) 74 - 106 mg/dL 10/10/2014 12:33 PM LOAN REVIEWER [facility] Sodium 137 136 - 145 mmol/L 10/10/2014 12:33 PM LOAN REVIEWER [facility] Potassium 3.7 3.5 - 5.1 mmol/L 10/10/2014 12:33 PM LOAN REVIEWER [facility] Chloride 107 98 - 107 mmol/L 10/10/2014 12:33 PM LOAN REVIEWER [facility] CO2 22 22 - 31 mmol/L 10/10/2014 12:33 PM LOAN REVIEWER [facility] Calcium 7.4(L) 8.5 - 10.1 mg/dL 10/10/2014 12:[address] [facility] Anion Gap 8 5 - 15 mmol/L 10/10/2014 12:[address] [facility] BUN 12 7 - 21 mg/dL 10/10/2014 12:[address] [facility] Creatinine 1.02 0.50 - 1.30 mg/dL 10/10/2014 12:[address] [facility] Albumin 2.5(L) 3.4 - 5.0 gm/dL 10/10/2014 12:[address] [facility] Phosphorus 1.9(L) 2.5 - 4.9 mg/dL 10/10/2014 12:[address] [facility] eGFR by MDRD >60 >60 mL/min/1.7 3m2 10/10/2014 12:[address] [facility] eGFR by MDRD >60 >60 mL/min/1.7 3m2 10/10/2014 12:33 PM LOAN REVIEWER [facility] Blood BLOOD SPECIMEN / Unknown 10/10/2014 12:11 PM LOAN REVIEWER 10/10/2014 12:10 PM LOAN REVIEWER Adam Cheema MD LAB - CHEMISTRY [place] Performing Organization Address City/[facility]/ZIP Co de Phone Number [facility] [address] [place] [address] * (ABNORMAL) GLUCOSE - POINT OF CARE (10/10/2014 11:47 AM LOAN REVIEWER) Only the most recent of7 resultswithin the time period is included. [facility] Glucose WB/POC 199(H) 70 - 106 mg/dL 10/10/2014 2:24 PM LOAN REVIEWER [facility] Blood BLOOD SPECIMEN / Unknown 10/10/2014 11:47 AM LOAN REVIEWER 10/10/2014 2:24 PM LOAN REVIEWER Adam Cheema MD LAB - POINT OF CARE ORDERABLES Performing Organization Address [facility]/ZIP Co de Phone Number [facility] [address] [place], [place] [phone] * (ABNORMAL) FOLATE (10/10/2014 5:31 AM LOAN REVIEWER) Folate 18.6(H) 3.1 - 17.5 ng/mL 10/10/2014 6:15 AM LOAN REVIEWER [facility] Blood BLOOD SPECIMEN / Unknown 10/10/2014 5:31 AM LOAN REVIEWER 10/10/2014 5:38 AM LOAN REVIEWER Neeraj Rogers MD LAB - CHEMISTRY MICHAELA HOLMAN Performing Organization Address City/[facility] Co de Phone Number [facility] [address] [place] [address] * VITAMIN B12 (10/10/2014 5:31 AM LOAN REVIEWER) Pathologist [facility] Vitamin B12 904 211 - 911 pg/mL 10/10/2014 11:37 AM [facility] Blood BLOOD SPECIMEN / Unknown 10/10/2014 5:31 AM LOAN REVIEWER 10/10/2014 5:38 AM LOAN REVIEWER Neeraj Rogers MD LAB - CHEMISTRY MICHAELA HOLMAN Performing Organization Address [facility] Co de Phone Number [facility] [address] [place] [address] * TSH (10/10/2014 5:31 AM LOAN REVIEWER) Pathologist [facility] TSH 3.69 0.358 - 3.740 uIU/mL 10/10/2014 6:[address] [facility] Blood BLOOD SPECIMEN / Unknown 10/10/2014 5:31 AM LOAN REVIEWER 10/10/2014 5:38 AM LOAN REVIEWER Neeraj Rogers MD LAB - CHEMISTRY MICHAELA HOLMAN Performing Organization Address [facility] Co de Phone Number [facility] [address] [place] [address] * (ABNORMAL) BASIC METABOLIC PANEL (CALCIUM TOTAL) (10/09/2014 3:56 AM LOAN REVIEWER) Pathologist [facility] Glucose 141(H) 74 - 106 mg/dL 10/09/2014 4:[address] [facility] Sodium 136 136 - 145 mmol/L 10/09/2014 4:[address] [facility] Potassium 3.4(L) 3.5 - 5.1 mmol/L 10/09/2014 4:[address] [facility] Chloride 108(H) 98 - 107 mmol/L 10/09/2014 4:[address] [facility] CO2 19(L) 22 - 31 mmol/L 10/09/2014 4:[address] [facility] Calcium 6.9(LL) 8.5 - 10.1 mg/dL 10/09/2014 4:[address] [facility] Anion Gap 9 5 - 15 mmol/L 10/09/2014 4:[address] [facility] BUN 19 7 - 21 mg/dL 10/09/2014 4:[address] [facility] Creatinine 1.50(H) 0.50 - 1.30 mg/dL 10/09/2014 4:[address] [facility] eGFR by MDRD 54(L) >60 mL/min/1.7 3m2 10/09/2014 4:[address] [facility] eGFR by MDRD >60 >60 mL/min/1.7 3m2 10/09/2014 4:[address] [facility] Blood BLOOD SPECIMEN / Unknown 10/09/2014 3:56 AM LOAN REVIEWER 10/09/2014 4:03 AM LOAN REVIEWER Marcy Lovelace PA-C LAB - CHEMISTRY O RDERABLES [facility] [address] [place] [address] * US ABDOMEN LIMITED (GB/liver/pancreas) (10/08/2014 7:24 PM LOAN REVIEWER) Anatomical Region Laterality Modality Abdomen Ultrasound 10/08/2014 7:31 PM LOAN REVIEWER Impressions 10/08/2014 7:34 PM LOAN REVIEWER Cholelithiasis. Please see above for other findings. Narrative 10/08/2014 7:34 PM LOAN REVIEWER GALLBLADDER ULTRASOUND INDICATION: Nausea. Abdominal pain. Fever. Flulike symptoms since Wednesday morning. FINDINGS: Small filling defects are visible in the gallbladder lumen.. The common bile duct measures 0.71 cm. The liver shows an increase in sonographic density but no space-occupying lesion can be seen. No free fluid can be identified around the liver. With color Doppler imaging, vascular flow is visible in the portal vein and some of the hepatic veins The right kidney survey images show no obstruction. The pancreas is obscured by overlying bowel gas.. Procedure Note Andre Sanchez MD - 10/08/2014 GALLBLADDER ULTRASOUND INDICATION: Nausea. Abdominal pain. Fever. Flulike symptoms since Wednesday morning. FINDINGS: Small filling defects are visible in the gallbladder lumen.. The common bile duct measures 0.71 cm. The liver shows an increase in sonographic density but no space-occupying lesion can be seen. No free fluid can be identified around the liver. With color Doppler imaging, vascular flow is visible in the portal vein and some of the hepatic veins The right kidney survey images show no obstruction. The pancreas is obscured by overlying bowel gas.. IMPRESSION Cholelithiasis. Please see above for other findings. Marcy Lovelace PA-C US ORDERABLES * CULTURE BLOOD (10/08/2014 5:09 PM LOAN REVIEWER) Only the most recent of2 resultswithin the time period is included. Culture No Growth MARY 10/14/2014 5:02 AM CDT [facility] Blood PERIPHERAL BLOOD / Unknown 10/08/2014 5:09 PM LOAN REVIEWER 10/08/2014 5:26 PM LOAN REVIEWER Marcy Lovelace PA-C LAB - MICROBIOLOG Y ORDERABLES Performing Organization Address City/State/[facility] Co de Phone Number [facility] [address] [place] [id number] [place] [address] * CT ABDOMEN AND PELVIS NON IV CONTRAST (10/08/2014 5:08 PM LOAN REVIEWER) Anatomical Region Laterality Modality Abdomen, Pelvis Computed Tomogra phy 10/08/2014 5:14 PM LOAN REVIEWER Impressions 10/08/2014 5:16 PM LOAN REVIEWER Numerous mildly enlarged intra-abdominal and retroperitoneal lymph nodes are identified. Suspect cholelithiasis and hepatic steatosis. Narrative 10/08/2014 5:[address] abdomen pelvis without IV contrast Indication: Abdominal pain, fever, flulike symptoms Technique: Helical CT images of the abdomen and pelvis are obtained without IV contrast. Findings: CT abdomen: Scans of lung bases are unremarkable. The liver is diffusely low in attenuation as can be seen with steatosis. The spleen and pancreas are unremarkable. There are scattered lymph nodes throughout the abdomen which are mildly enlarged and more numerous than expected. Largest of these is peripancreatic measuring approximately 1.4 x 1.4 cm. No definite pancreatic fluid collections or pseudocysts are identified. There are retroperitoneal and periaortic lymph nodes as well. Findings concerning for adenitis or possibly lymphoma. Gallbladder is present and contracted. Tiny calculus suspected in the gallbladder. Kidneys and adrenals are unremarkable. Loops of bowel are of normal caliber. CT pelvis: There is no focal fluid collection. Colon is unremarkable. The appendix is well-seen and appears unremarkable. Procedure Note Sonja Humphrey MD - 10/08/2014 CT abdomen pelvis without IV contrast Indication: Abdominal pain, fever, flulike symptoms Technique: Helical CT images of the abdomen and pelvis are obtained without IV contrast. Findings: CT abdomen: Scans of lung bases are unremarkable. The liver is diffusely low in attenuation as can be seen with steatosis. The spleen and pancreas are unremarkable. There are scattered lymph nodes throughout the abdomen which are mildly enlarged and more numerous than expected. Largest of these is peripancreatic measuring approximately 1.4 x 1.4 cm. No definite pancreatic fluid collections or pseudocysts are identified. There are retroperitoneal and periaortic lymph nodes as well. Findings concerning for adenitis or possibly lymphoma. Gallbladder is present and contracted. Tiny calculus suspected in the gallbladder. Kidneys and adrenals are unremarkable. Loops of bowel are of normal caliber. CT pelvis: There is no focal fluid collection. Colon is unremarkable. The appendix is well-seen and appears unremarkable. IMPRESSION Numerous mildly enlarged intra-abdominal and retroperitoneal lymph nodes are identified. Suspect cholelithiasis and hepatic steatosis. Marcy Lovelace PA-C CT ORDERABLES * (ABNORMAL) URINALYSIS MICROSCOPIC ONLY W/REFLEX CULTURE (10/08/2014 4:50 PM LOAN REVIEWER) RBC UA 5-10(A) 0-2, 2-5 # /hpf 10/08/2014 5:40 PM LOAN REVIEWER [facility] WBC UA 10-20(A) 0-2, 2-5 # /hpf 10/08/2014 5:40 PM LOAN REVIEWER [facility] Bacteria UA 1+(A) None Seen 10/08/2014 5:40 PM LOAN REVIEWER [facility] Epithelial Cell UA 2-5 0-2, 2-5 10/08/2014 5:40 PM LOAN REVIEWER [facility] Hyaline Casts 0-2 0 - 2 # /lpf 10/08/2014 5:40 PM LOAN REVIEWER [facility] Fine Granular Casts 20-50(A) None Seen # /lpf 10/08/2014 5:40 PM LOAN REVIEWER [facility] Reflex Status Culture to follow 10/08/2014 5:40 PM LOAN REVIEWER [facility] Urine URINE SPECIMEN OBTAINED BY CLEAN CATCH PROCEDURE / Unknown 10/08/2014 4:50 PM LOAN REVIEWER 10/08/2014 4:57 PM LOAN REVIEWER Cameron Martinez MD LAB - URINALYSIS ORDERABLES [facility] [address] [place] [address] * (ABNORMAL) URINALYSIS ROUTINE W/REFLEX TO CULTURE (10/08/2014 4:50 PM LOAN REVIEWER) Color UA Dark Yellow Straw, Yellow, Dark Yellow 10/08/2014 5:12 PM LOAN REVIEWER [facility] Clarity UA Turbid 10/08/2014 5:12 PM LOAN REVIEWER [facility] Specific [place] UA 1.026 1.005 - 1.030 10/08/2014 5:12 PM LOAN REVIEWER [facility] pH UA 5.0 5.0 - 8.0 pH 10/08/2014 5:12 PM LOAN REVIEWER [facility] Protein UA 4+(A) Negative 10/08/2014 5:12 PM LOAN REVIEWER [facility] Blood UA 3+(A) Negative 10/08/2014 5:12 PM LOAN REVIEWER [facility] Leukocyte UA Negative Negative 10/08/2014 5:12 PM LOAN REVIEWER [facility] Nitrite UA Negative Negative 10/08/2014 5:12 PM LOAN REVIEWER [facility] Glucose UA 1+(A) Negative 10/08/2014 5:12 PM LOAN REVIEWER [facility] Ketone UA Trace(A) Negative 10/08/2014 5:12 PM LOAN REVIEWER [facility] Bilirubin UA 1+(A) Negative 10/08/2014 5:12 PM LOAN REVIEWER [facility] Urobilinogen UA 0.2 0.1 - 1.0 EU/dL 10/08/2014 5:12 PM LOAN REVIEWER [facility] Urine Microscopy Urine microscopy to follow 10/08/2014 5:12 PM LOAN REVIEWER [facility] Reflex Status Culture to follow 10/08/2014 5:12 PM LOAN REVIEWER [facility] Urine URINE SPECIMEN OBTAINED BY CLEAN CATCH PROCEDURE / Unknown 10/08/2014 4:50 PM LOAN REVIEWER 10/08/2014 4:57 PM LOAN REVIEWER Gama Escalona MD LAB - URINALYSIS ORD ERABLES Performing Organization Address City/[facility]/ZIP Co de Phone Number [facility] [id number] [place] [address] * CULTURE URINE (10/08/2014 4:50 PM LOAN REVIEWER) Pathologist [facility] Culture <10,000 CFU/mL normal skin/urogen ital prasad MARY 10/10/2014 6:55 AM LOAN REVIEWER [facility] Urine URINE SPECIMEN OBTAINED BY CLEAN CATCH PROCEDURE / Unknown 10/08/2014 4:50 PM LOAN REVIEWER 10/08/2014 4:57 PM LOAN REVIEWER Cameron Martinez MD LAB - MICROBIOLOG Y ORDERABLES Performing Organization Address City/[facility]/ZIP Co de Phone Number [facility] [id number] * ACETONE BLOOD QUALITATIVE (10/08/2014 4:39 PM LOAN REVIEWER) Acetone Negative Negative 10/08/2014 4:53 PM LOAN REVIEWER [facility] Blood BLOOD SPECIMEN / Unknown 10/08/2014 4:39 PM LOAN REVIEWER 10/08/2014 4:43 PM LOAN REVIEWER Marcy Lovelace PA-C LAB - CHEMISTRY O RDERABLES Performing Organization Address [facility]/ZIP Co de Phone Number [facility] [address] [place] [address] * LIPASE BLOOD (10/08/2014 3:45 PM LOAN REVIEWER) Lipase 153 73 - 393 U/L 10/08/2014 4:01 PM LOAN REVIEWER [facility] Blood BLOOD SPECIMEN / Unknown 10/08/2014 3:45 PM LOAN REVIEWER 10/08/2014 3:47 PM LOAN REVIEWER Gama Escalona MD LAB - CHEMISTRY MICHAELA KAMERONREBECCA Performing Organization Address [facility] de Phone Number [facility] [id number] [place] [address] * LACTIC ACID BLOOD (10/08/2014 3:45 PM LOAN REVIEWER) Lactic Acid 1.2 0.7 - 2.1 mmol/L 10/08/2014 4:07 PM LOAN REVIEWER [facility] Blood BLOOD SPECIMEN / Unknown 10/08/2014 3:45 PM LOAN REVIEWER 10/08/2014 3:47 PM LOAN REVIEWER Gama Escalona MD LAB - CHEMISTRY ORDDonna HOLMAN Performing Organization Address [facility] de Phone Number [facility] [id number] [place] [address] * CXR - PA & LATERAL (10/08/2014 3:08 PM LOAN REVIEWER) Anatomical Region Laterality Modality Chest Radiographic Althea ging 10/08/2014 3:12 PM LOAN REVIEWER Impressions 10/08/2014 3:12 PM LOAN REVIEWER No acute disease. Narrative 10/08/2014 3:12 PM LOAN REVIEWER Chest Two Views History: Fever. Comparison: None. Findings: The lungs are clear without airspace consolidation or pulmonary edema. No pneumothorax or pleural effusion is seen. The cardiomediastinal contour is unremarkable. Procedure Note Juan Manuel Vo MD - 10/08/2014 Chest Two Views History: Fever. Comparison: None. Findings: The lungs are clear without airspace consolidation or pulmonary edema. No pneumothorax or pleural effusion is seen. The cardiomediastinal contour is unremarkable. IMPRESSION No acute disease. Marcy Lovelace PA-C DIAGNOSTIC IMAGIN G ORDERABLES * (ABNORMAL) RESPIRATORY VIRUS PANEL BY PCR (10/08/2014 1:54 PM LOAN REVIEWER) Pathologist [facility] Adenovirus PCR Not detected Not detected, Invalid, Indeterminate 10/09/2014 2:25 AM [facility] Human Metapneumovirus PCR Detected(A ) Not detected, Invalid, Indeterminate 10/09/2014 2:25 AM [facility] Human Rhinovirus/Entero virus PCR Not detected Not detected, Invalid, Indeterminate 10/09/2014 2:25 AM [facility] Influenza A Non Subtyped PCR Not detected Not detected, Invalid, Indeterminate 10/09/2014 2:25 AM [facility] Influenza A H1 PCR Not detected Not detected, Invalid, Indeterminate 10/09/2014 2:25 AM [facility] Influenza A H3 PCR Not detected Not detected, Invalid, Indeterminate 10/09/2014 2:25 AM [facility] Influenza A H1 2009 PCR Not detected Not detected, Invalid, Indeterminate 10/09/2014 2:25 AM [facility] Influenza B PCR Not detected Not detected, Invalid, Indeterminate 10/09/2014 2:25 AM [facility] Mycoplasma pneumoniae PCR Not detected Not detected, Invalid, Indeterminate 10/09/2014 2:25 AM [facility] Parainfluenza Virus 1 PCR Not detected Not detected, Invalid, Indeterminate 10/09/2014 2:25 AM [facility] Parainfluenza Virus 2 PCR Not detected Not detected, Invalid, Indeterminate 10/09/2014 2:25 AM [facility] Parainfluenza Virus 3 PCR Not detected Not detected, Invalid, Indeterminate 10/09/2014 2:25 AM [facility] Parainfluenza Virus 4 PCR Not detected Not detected, Invalid, Indeterminate 10/09/2014 2:25 AM [facility] Respiratory Syncytial Virus PCR Not detected Not detected, Invalid, Indeterminate 10/09/2014 2:25 AM [facility] Bordetella pertussis PCR Not detected Not detected, Invalid 10/09/2014 2:25 AM [facility] Microbiology NASOPHARYNGEAL SWAB / Unknown 10/08/2014 1:54 PM LOAN REVIEWER 10/08/2014 1:57 PM [facility] Narrative [facility] - 10/09/2014 2:25 AM [facility] 10/09/2014 2:25 AM Renan Rodriguez RN notified. Read back and acknowledged results.(dmt) Marcy L Meinert PA-C LAB - MICROBIOLOG Y ORDERABLES Performing Organization Address City/[facility] Co de Phone Number [facility] [address] [place] [address], [facility] * INFLUENZA A+B ANTIGEN RAPID (10/08/2014 1:54 PM LOAN REVIEWER) Influenza A Antigen Negative Negative 10/08/2014 2:17 PM LOAN REVIEWER [facility] Influenza B Antigen Negative Negative 10/08/2014 2:17 PM LOAN REVIEWER [facility] Microbiology NASOPHARYNGEAL SWAB / Unknown 10/08/2014 1:54 PM LOAN REVIEWER 10/08/2014 1:57 PM LOAN REVIEWER Narrative [facility] - 10/08/2014 2:17 PM LOAN REVIEWER The sensitivity of rapid tests for influenza A and B antigens, according to the published reports , ranges from 30-70% when compared to PCR and viral culture. For H1N1 influenza A, the sensitivity varies from 30-50%. For other influenza A strains, the sensitivity ranges from 50-70%. For influenza B virus, the sensitivity is approximately 30%. A negative result does not exclude influenza infection. False-positive (and true-negative) influenza test results are more likely to occur when disease prevalence is low, which is generally at the beginning and end of the influenza season. False-negative (and true-positive) influenza test results are more likely to occur when disease prevalence is high, which is typically at the height of the influenza season. Gama Escalona MD LAB - MICROBIOLOGY O RDERABLES Performing Organization Address City/[facility] Co de Phone Number [facility] [address] [place] [address] Care Teams Diffusion Furnace Operator Relationship Specialty Start Date End Date Mya Gross MD [address] [id number] PCP - General 01/21/22 Keli Daley, RN Manager Coding 10/09/14
[2024-10-11 06:57] LABS: Basophils Percent Auto 0.2 % (0.2-1.2); Eosinophils Absolute Auto 0.1 K/mm3 (0-0.3); Eosinophils Percent Auto 0.3 % (0-4.4); Hematocrit 34.5 % (42.0-52.0); Hemoglobin 10.6 g/dL (14.0-18.0); Immature Granulocyte Absolute 0.39 K/mm3 (0.00-0.031); Immature Granulocyte Percent A 1.6 % (0-0.5); Lymphocytes Absolute Auto 0.42 K/mm3 (0.9-3.2); Lymphocytes Percent Auto 1.7 % (18.3-44.2); Mean Corpuscular HGB Conc 30.7 g/dl (32-36); Mean Platelet Volume 8.3 fl (7.4-10.4); Monocytes Absolute Auto 1.1 K/mm3 (0.1-0.6); Monocytes Percent Auto 4.3 % (2.6-8.5); Neutrophils Absolute Auto 22.9 K/mm3 (1.3-6.7); Neutrophils Percent Auto 91.9 % (45.5-73.1); Platelet Count Result 421 k/mm3 (150-375); Red Blood Count 3.92 M/mm3 (4.6-6.20); Red Cell Distribution Width 16.7 % (11.5-14.5); White Blood Count 24.9 K/mm3 (4.5-10.0)
--- NOTE | 2024-10-11 07:12 | PC.NURSE ---
Report given to LENNIE Gonzalez. No questions at this time.
[2024-10-11 07:15] LABS: Alanine Aminotransferase 19 U/L (6-50); Albumin Level 3.1 g/dL (3.5-5.1); Alkaline Phosphatase 96 U/L (38-126); Anion Gap 22 mmol/L (4-12); Aspartate Amino Transferase 24 U/L (17-59); Bilirubin,Total 0.4 mg/dL (0.2-1.3); Calcium 8.8 mg/dL (8.4-10.2); Carbon Dioxide 11 mmol/L (22-30); Chloride 105 mmol/L (98-107); Estimated CRCL calculation 7 ml/min; Estimated Glomerular Filt Rate 4; Glucose 179 mg/dL (65-110); Lipase 95 U/L (23-300); Potassium 4.9 mmol/L (3.4-5.0); Sodium 138 mmol/L (137-145)
[2024-10-11 07:27] LABS: Blood Urea Nitrogen 137 mg/dL (9-20)
--- NOTE | 2024-10-11 08:01 | ED.GENADULT ---
HPI - General Adult General Chief complaint: Abdominal Pain Stated complaint: abd pain Time Seen by Provider: 10/11/24 07:33 History of Present Illness HPI narrative: [age] old male with history of peritoneal dialysis presents emergency department for evaluation for worsening abdominal pain. Patient does complain of lower abdominal pain that started approximately 3 days ago. Patient reports that is primarily L lower abdominal pain. Patient states he was attempting to do a 3 L per to dialysis fell and could only make it to over a L and had to stop the feeling. Patient reports last night he had similar symptoms and was only able to instill 500 mL. Patient denies any associated nausea or vomiting. Patient's primary complaint is lower abdominal pain. Patient does make urine. Related Data Home Medications ?Medication ?Instructions ?Recorded ?Confirmed ?Last Taken ?Type calcitriol 0.25 mcg capsule 0.25 mcg PO DAILY 07/21/22 10/11/24 10/10/24 History metoprolol succinate 50 mg PO DAILY 07/22/22 10/11/24 10/10/24 History amlodipine 10 mg tablet 10 mg PO DAILY 10/11/24 10/11/24 10/10/24 History Allergies Allergy/AdvReac Type Severity Reaction Status Date / Time No Known Allergies Allergy Verified 10/11/24 13:25 Review of Systems Review of Systems: All systems reviewed & are unremarkable except as noted in HPI and below PMFSH Past Medical History Medical History Hyperphosphatemia associated with renal failure Non-compliance Renal failure Diabetes Hypertension Surgical History Surgical History No pertinent past surgical history Family History Family History Mother Diabetes mellitus Hypertension Grandparent Diabetes mellitus Hypertension Social History Social History Smoking status: Never smoker Second hand tobacco smoke exposure: No Alcohol intake: never Substance use: current Substance use type: marijuana Last use: 10/11/24 Do You Feel Safe in your Home?: Yes Lack of Transportation: No Lack of Food: Never True Current Housing: I Have Housing Concerned About Future Housing: No Difficulty Paying Gas/Electric Bills: No Difficulty Paying for Meds: No Currently Unemployed: No Education: Don't Know Difficulty w/ Childcare or Family Care: No Spiritual care concerns: No Exam Narrative: APPEARANCE: Well appearing, no pain, no distress, well-nourished. HEAD: normocephalic, atraumatic. EYES: PERRLA/EOMI, conjunctivae clear. NOSE: Normal no drainage EARS:TMS clear with good light reflex. THROAT: Pharynx clear, no exudate. NECK: Supple. No adenopathy, no masses. RESPIRATORY: Airway patent, respirations nonlabored. Clear to auscultation bilaterally, no rales, rhonchi, wheezing. CARDIOVASCULAR: Regular rate and rhythm without murmurs rubs or gallops. ABDOMINAL: Lower abdominal tenderness to palpation MUSCULOSKELETAL: Moves all extremities. Strength/ROM intact, No edema, No calf tenderness. NEURO: Alert. Cranial nerves II through XII intact. SKIN: Warm, dry. Normal Color Course Vital Signs Vital signs: Vital Signs Temperature 97.0 F L 10/11/24 04:59 Pulse Rate 109 H 10/11/24 04:59 Respiratory Rate 20 10/11/24 04:59 Blood Pressure 156/97 H 10/11/24 04:59 Pulse Oximetry 97 10/11/24 04:59 Oxygen Delivery Room Air 10/11/24 04:59 Temperature 97.8 F 10/11/24 13:42 Pulse Rate 102 H 10/11/24 13:42 Respiratory Rate 18 10/11/24 13:42 Blood Pressure 186/108 H 10/11/24 13:42 Pulse Oximetry 95 10/11/24 13:42 Oxygen Delivery Room Air 10/11/24 04:59 Medical Decision Making [facility] Narrative Medical decision making narrative: 43 old male present to the emergency department for evaluation for lower abdominal pain that is worsened when and still in his peritoneal dialysis fluid. Patient reports symptoms started approximately 3 days ago. Patient is afebrile but does have a white count. CT scan did show some retained dialysis that fluid. Patient does have a white count of 24.9. Patient was provided medications for pain control and started on cefepime in the emergency department. Case was discussed with hospitalist patient was accepted for admission and nephrology was consulted. Unable to obtain that I asked lead fluid prior to starting antibiotics. Patient does describe his fluid as cloudy and milky. Case was discussed with Nephrology and they are okay with us starting antibiotics. Differential Diagnosis Differential Diagnosis: SBP, colitis, diverticulitis Vital Signs Vital Signs: Vital Signs Temperature 97.0 F L 10/11/24 04:59 Pulse Rate 109 H 10/11/24 04:59 Respiratory Rate 20 10/11/24 04:59 Blood Pressure 156/97 H 10/11/24 04:59 Pulse Oximetry 97 10/11/24 04:59 Oxygen Delivery Room Air 10/11/24 04:59 Temperature 97.8 F 10/11/24 13:42 Pulse Rate 102 H 10/11/24 13:42 Respiratory Rate 18 10/11/24 13:42 Blood Pressure 186/108 H 10/11/24 13:42 Pulse Oximetry 95 10/11/24 13:42 Oxygen Delivery Room Air 10/11/24 04:59 Lab Data Lab results reviewed: Yes I reviewed the patient's lab results. 10/11/24 06:52 10/11/24 06:52 Labs: Lab Results 10/11/24 Range/Units 06:52 WBC 24.9 H (4.5-10.0) K/mm3 RBC 3.92 L (4.6-6.20) M/mm3 Hgb 10.6 L (14.0-18.0) g/dL Hct 34.5 L (42.0-52.0) % MCV 88.0 (80-100) fl MCH 27.0 (26-34) pg MCHC 30.7 L (32-36) g/dl RDW 16.7 H (11.5-14.5) % Plt Count 421 H (150-375) k/mm3 MPV 8.3 (7.4-10.4) fl Immature Gran % (Auto) 1.6 H (0-0.5) % Neut % (Auto) 91.9 H (45.5-73.1) % Lymph % (Auto) 1.7 L (18.3-44.2) % [place] % (Auto) 4.3 (2.6-8.5) % Eos % (Auto) 0.3 (0-4.4) % Baso % (Auto) 0.2 (0.2-1.2) % Lymph # (Auto) 0.42 L (0.9-3.2) K/mm3 [place] # (Auto) 1.1 H (0.1-0.6) K/mm3 Eos # (Auto) 0.1 (0-0.3) K/mm3 Baso # (Auto) 0.0 (0.0-0.1) K/mm3 Abs Immat Gran (auto) 0.39 H (0.00-0.031) K/mm3 Absolute Neuts (auto) 22.9 H (1.3-6.7) K/mm3 Absolute Nucleated RBC 0.000 (0.0-0.012) K/mm3 Nucleated RBC % 0.0 (0.0-0.2) % ESR 134 H (0-20) mm/hr Sodium 138 (137-145) mmol/L Potassium 4.9 (3.4-5.0) mmol/L Chloride 105 (98-107) mmol/L Carbon Dioxide 11 L (22-30) mmol/L Anion Gap 22 H (4-12) mmol/L BUN 137 H D (9-20) mg/dL Creatinine 12.69 H (0.7-1.3) mg/dL Estim Creat Clear Calc 7 ml/min Estimated GFR 4 L (59 - ) Glucose 179 H (65-110) mg/dL Calcium 8.8 (8.4-10.2) mg/dL Total Bilirubin 0.4 (0.2-1.3) mg/dL AST 24 (17-59) U/L ALT 19 (6-50) U/L Alkaline Phosphatase 96 (38-126) U/L C-Reactive Protein 28.2 H (<1.0) mg/dL Total Protein 7.0 (6.3-8.2) g/dL Albumin 3.1 L (3.5-5.1) g/dL Lipase 95 (23-300) U/L Imaging Data Radiologist's impression: Impressions Abdomen/Pelvis CT 10/11/24 07:58 IMPRESSION: 1. Small pleural effusion. 2. Mild pelvic lymphadenopathy which may be reactive. 3. Large volume of ascites with peritoneal dialysis catheter noted. 4. Right inguinal hernia containing fat. Discharge Plan Discharge Clinical Impression: Abdominal pain, SBP (spontaneous bacterial peritonitis) Patient Disposition: Still a Patient Condition: Serious
--- OUTSIDE RECORDS SUMMARY | 2024-10-11 08:06 | XMS_ITS | Encounter Summary ---
Author Organization [facility] Address [address] [place] [address] Care Team Providers Care Kiln Tester Name Role Phone Joel Hernandez MD Primary Care Provider [phone] Encounter Details Date Type Department Care Team (Late st Contact Info) Description 08/11/[address] [facility] [place] [address] [facility] [address] [place] [phone] Zen Díaz MD [address] [facility] 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
--- OUTSIDE RECORDS SUMMARY | 2024-10-11 08:06 | XMS_ITS | Encounter Summary ---
Author Organization [facility] Address [address] [place] [address] Care Team Providers Care Tiller Man Name Role Phone Joel Hernandez MD Primary Care Provider [phone] Encounter Details Date Type Department Care Team (Late st Contact Info) Description 06/23/2007 Outpatient Historical [facility] [place] [address] [facility] [address] [place] [phone] Zen Díaz MD [address] [facility] 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
--- OUTSIDE RECORDS SUMMARY | 2024-10-11 08:06 | XMS_ITS | Encounter Summary ---
Author Organization [facility] Address [address] [place] [address] Care Team Providers Care Manufacturing Leader Name Role Phone Joel Hernandez MD Primary Care Provider [phone] Encounter Details Date Type Department Care Team (Late st Contact Info) Description 11/01/2006 Outpatient Historical [facility] Medicine - [place] [address] [facility] [address] [place] [phone] Zen Díaz MD [address] [facility] 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
--- OUTSIDE RECORDS SUMMARY | 2024-10-11 08:06 | XMS_ITS | Encounter Summary ---
Author Organization [facility] Address [address] [place] [address] Care Team Providers Care Clerk Analyst Name Role Phone Joel Hernandez MD Primary Care Provider [phone] Encounter Details Date Type Department Care Team (Late st Contact Info) Description 08/25/2007 Outpatient Historical [facility] [place] [address] [facility] [address] [place] [phone] Zen Díaz MD [address] [facility] 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
--- OUTSIDE RECORDS SUMMARY | 2024-10-11 08:06 | XMS_ITS | Encounter Summary ---
Author Organization [facility] Address [address] [place] [address] Care Team Providers Care Spirits Model Name Role Phone Joel Hernandez MD Primary Care Provider [phone] Encounter Details Date Type Department Care Team (Late st Contact Info) Description 02/04/2007 Outpatient Historical [facility] [place] [address] [facility] [address] [place] [phone] Zen Díaz MD [address] [facility] 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
--- OUTSIDE RECORDS SUMMARY | 2024-10-11 08:07 | XMS_ITS | Clinical Summary ---
Author Organization [facility] Address [address] [place] [address] Care Team Providers Care Woodwind Reeds Cutter Name Role Phone Keli Daley RN Unavailable [phone] Mya Gross MD Primary Care Provider [phone] Source Comments [facility],non-owned Affiliates and Associated Physician Practices is amultiple site organization consisting of ambulatory clinics and hospital sitesin [place], [place], [place] and [place]. This disclosure is being madepursuant to the Care Everywhere program and may not contain all information available regarding this patient. Last updated 18.[facility] Allergies No known active allergies Medications * [...] meds at dx. Never on insulin. No hitcher. Hypertension 08/09/2014 Resolved Problems Problem Noted Date [...] HEPATITIS C ANTIBODY Routine 07/09/2022 11:06 AM [facility] Proteinuria, unspecified type Type 2 diabetes mellitus with hyperosmolarity without coma, without long-term current use of insulin (HCC) HEMOGLOBIN A1C Routine 07/09/2022 11:06 AM [facility] Proteinuria, unspecified type Type 2 diabetes mellitus with hyperosmolarity without coma, without long-term current use of insulin (HCC) HIV-1 HIV-2 ANTIBODY + HIV P24 AG PANEL Routine 07/09/2022 11:06 AM [facility] Type 2 diabetes mellitus with hyperosmolarity without coma, without long-term current use of insulin (HCC) Proteinuria, unspecified type from Last 3 Months or Most Recently Relevant to Health Maintenance Results * (ABNORMAL) COMPREHENSIVE METABOLIC PANEL (03/19/2023 1:05 PM CDT) BUN 55(H) 7 - 26 mg/dL 03/19/2023 1:44 PM [facility] Creatinine 7.58(H) 0.71 - 1.16 mg/dL 03/19/2023 1:44 PM [facility] Sodium 138 136 - 145 mmol/L 03/19/2023 1:44 PM [facility] Potassium 4.0 3.5 - 4.5 mmol/L 03/19/2023 1:44 PM [facility] Chloride 103 98 - 107 mmol/L 03/19/2023 1:44 PM [facility] CO2 22 22 - 29 mmol/L 03/19/2023 1:44 PM [facility] Glucose 244(H) 70 - 115 mg/dL 03/19/2023 1:44 PM [facility] Calcium 8.8 8.4 - 10.2 mg/dL 03/19/2023 1:44 PM [facility] Protein Total 8.1 6.0 - 8.3 g/dL 03/19/2023 1:44 PM [facility] Albumin 3.0(L) 3.4 - 5.0 g/dL 03/19/2023 1:44 PM [facility] Bilirubin Total 0.4 0.2 - 1.2 mg/dL 03/19/2023 1:44 PM [facility] Alkaline Phosphatase 86 40 - 150 U/L 03/19/2023 1:44 PM [facility] ALT 11 5 - 55 U/L 03/19/2023 1:44 PM [facility] AST 9 5 - 34 U/L 03/19/2023 1:44 PM [facility] Anion Gap 17 8 - 18 03/19/2023 1:44 PM [facility] BUN/Creatinine Ratio 7 7 - 23 03/19/2023 1:44 PM [facility] Osmolality Calculated 309(H) 270 - 300 mOsm/kg 03/19/2023 1:44 PM [facility] Albumin/Globulin Ratio 0.6(L) 1.1 - 2.3 03/19/2023 1:44 PM [facility] eGFR by CKD-EPI 8(L) >=90 mL/min/1.7 3 m2 03/19/2023 1:44 PM [facility] Blood BLOOD SPECIMEN / Unknown Venipuncture / Unknown 03/19/2023 1:05 PM CDT 03/19/2023 1:14 PM CDT Lisa Yu MANAGEMENT LIAISON-STEWARDESSES TEACHER LAB - CHEMIS TRY ORDERABLES Performing Organization Address City/State/[facility] Co de Phone Number [facility] [address] [place] [phone], [facility] [phone] * HIV-1 HIV-2 ANTIBODY + HIV P24 AG PANEL (07/09/2022 11:06 AM [facility]) HIV Antigen/Antibod y 1 & 2 Non-reacti ve Non-react amaury 07/09/2022 12:51 PM [facility] Comment:No Laboratory eviden ce of HIV infection. Blood BLOOD SPECIMEN / Unknown Lab Venipuncture / Unknown 07/09/2022 11:06 AM [facility] 07/09/2022 11:59 AM [facility] Chela Lanier MD LAB - CHEMISTRY MICHAELA HOLMAN Performing Organization Address City/[facility]/ZIP Co de Phone Number [address] [address], [facility] [phone] * (ABNORMAL) HEMOGLOBIN A1C (07/09/2022 11:06 AM [facility]) Hemoglobin A1c 6.6(H) <=5.6 % 07/09/2022 2:34 PM [facility] Estimated Average Glucose 143 mg/dL 07/09/2022 2:34 PM [facility] Comment: HbA1c Interpretation: Normal : < 5.7% Pre-diabetes: 5.7-6.4% Diabetes: Equal to or greater than 6.5% Test results diagnostic of diabetes should be repeated for confirmation. Treatment target values recommended by ADA and other clinical organizations should be used to evaluate metabolic control in patients. Reference: [place] [employer], Standards of Care in Diabetes -2020 In patients 70 years and older consider HbA1c target range of 7.0-7.5% (Reference: Juancho Wilkerson et al. JAMDA. 2012) The Sebia assay for the measurement of HbA1c is a National Glycohemoglobin Standardization Program (NGSP) certified method. Blood BLOOD SPECIMEN / Unknown Lab Venipuncture / Unknown 07/09/2022 11:06 AM [facility] 07/09/2022 12:04 PM [facility] Chela Lanier MD LAB - CHEMISTRY MICHAELA HOLMAN Performing Organization Address City/[facility]/ZIP Co de Phone Number [address] [address], [facility] [phone] * HEPATITIS C ANTIBODY (07/09/2022 11:06 AM [facility]) Hepatitis C Antibody Non-react amaury Non-reac tive 07/09/2022 12:51 PM [facility] Comment:Hepatitis C Antibody screen indicates no serologic evidence of past or current infection with Hepatitis C Virus. Patients with unexplained liver disease who are immunocompromised or suspected of having acute Hepatitis C infection may benefit from Nucleic Acid Test (NICO) for Hepatitis C Viral RNA to confirm Hepatitis C status. Blood BLOOD SPECIMEN / Unknown Lab Venipuncture / Unknown 07/09/2022 11:06 AM [facility] 07/09/2022 11:59 AM [facility] Chela Lanier MD LAB - CHEMISTRY MICHAELA HOLMAN [facility] [address] [place] [address], [facility] [phone] from Last 3 Months or Most Recently Relevant to Health Maintenance Advance Directives * Full Code (Latest Code Status on File) Date Activated Date Inactivated Comments 10/08/2014 8:15 PM 10/10/2014 4:46 PM Care Teams Woodwind Reeds Cutter Relationship Specialty Start Date End Date Mya Gross MD [address] [facility] [address] [place] [address] PCP - General 01/21/22 Keli Daley, RN Dry Cleaner Helper 10/09/14
--- OUTSIDE RECORDS SUMMARY | 2024-10-11 08:07 | XMS_ITS | Clinical Summary ---
Author Organization [facility] Address [address] [place] [address] Phone Care Team Providers Care Vet Tech Name Role Phone Provider, None Primary Care [...] . Behavioral Health On track(2020 3:21 PM EMERGENCY PREPAREDNESS COORDINATOR) Yes Connie Rodney, FOUNDRY WORKER GENERAL Note: Goal Reviewed with: patient Readiness to change: Ready to change Department associated with goal: [facility] Steps to achieve goal: will attend counseling/psychotherapy sessions at least once monthly, utilizing individual and/or group sessions to express thoughts and feelings. will verbalize understanding of depression and anxiety, ex: causes/contributing and risk factors, prevalence of conditions in the general population. will identify two or more skills to gain peace and relieve stress. anxiety/depression Behavioral Health On track(2020 3:33 PM EMERGENCY PREPAREDNESS COORDINATOR) No Heather Montez, FOUNDRY WORKER GENERAL Note: Department associated with goal: [facility] Goal Reviewed with: patient Readiness to change: Ready to change Department associated with goal: [facility] Steps to achieve goal: Goal Reviewed with: patient Readiness to change: Ready to change Department associated with goal: [facility] Steps to achieve goal: [...] - 144 mmol/L 05/13/2018 6:06 AM CDT [facility] POTASSIUM 4.3 3.5 - 5.1 mmol/L 05/13/2018 6:06 AM [facility] CHLORIDE 99(L) 100 - 110 mmol/L 05/13/2018 6:06 AM [facility] CO2, VENOUS 23 22 - 32 mmol/L 05/13/2018 6:06 AM [facility] ANION GAP 17.3 8.0 - 20.0 mmol/L 05/13/2018 6:06 AM [facility] GLUCOSE 128(H) 70 - 99 mg/dL 05/13/2018 6:06 AM [facility] BUN 22(H) 6 - 20 mg/dL 05/13/2018 6:06 AM [facility] CREATININE, BLOOD 1.33(H) 0.80 - 1.30 mg/dL 05/13/2018 6:06 AM [facility] BUN/CREATININE RATIO 17 12 - 20 ratio 05/13/2018 6:06 AM [facility] TOTAL PROTEIN 7.7 6.0 - 8.3 g/dL 05/13/2018 6:06 AM [facility] ALBUMIN 3.4(L) 3.5 - 5.2 g/dL 05/13/2018 6:06 AM [facility] Comment: The colormetric methods used for the determination of Albumin may lead to falsely elevated test results in patients suffering from renal failure or insufficiency due to interference with other proteins. A/G RATIO 0.8(L) 1.0 - 2.0 05/13/2018 6:06 AM [facility] CALCIUM 9.1 8.9 - 10.3 mg/dL 05/13/2018 6:06 AM [facility] T BILI 0.4 <=1.2 mg/dL 05/13/2018 6:06 AM [facility] SGOT (AST) 18 <=40 U/L 05/13/2018 6:06 AM [facility] SGPT (ALT) 21 <=41 U/L 05/13/2018 6:06 AM CDT [facility] ALKALINE PHOSPHATASE 88 40 - 130 U/L 05/13/2018 6:06 AM CDT [facility] GFR, EST. NONAFRICAN 60 >=60 05/13/2018 6:06 AM CDT [facility] GFR, EST. >60 >=60 018 6:06 AM CDT [facility] Comment: Creatinine Clearance is the preferred criteria for selecting drug dose adjustments in renally impaired patients. The GFR is provided as additional pertinent clinical information. GFR is reported in mL/min/1.73 sq m. Blood specimen (specimen) Butterfly Puncture / Unknown 05/13/2018 4:39 AM CDT 05/13/2018 5:33 AM CDT us Shilpa Samuel APRN, CNP CHEMISTRY ORDERABLE S Final Result Performing Organization Address City/[facility] Co de Phone Number [facility] [address] [place] [address] * (ABNORMAL) Hemoglobin A1C w/ Estimated Glucose (05/10/2018 8:30 PM CDT) HGB-A1C 8.6(H) 4.0 - 6.0 % 05/10/2018 9:23 PM CDT [facility] Est Average Glucose 200.1 mg/dL 05/10/2018 9:23 PM CDT [facility] Blood specimen (specimen) Venous Catheter (IV) / Unknown 05/10/2018 8:30 PM CDT 05/10/2018 9:04 PM CDT Narrative [facility] - 05/10/2018 9:23 PM CDT HEMOGLOBIN A1C: DIABETIC PATIENTS: WELL-CONTROLLED: 6.2 - 7.0 INTERMEDIATE WELL-CONTROLLED: 7.0 - 9.0 POORLY-CONTROLLED: >9.0 us Jose Rodríguez MD CHEMISTRY ORDERABLES Renay l Result [facility] [address] [place] [address] from Last 3 Months or Most Recently Relevant to Health Maintenance Insurance [facility] Advance Directives * Full Code (Latest Code Status on File) Date Activated Date Inactivated Comments 05/10/2018 10:39 PM 05/13/2018 3:27 PM CPR-Full Tr eatment: FULL ARREST: Attempt Resuscitation/CPR wit intubation and mechanical ventilation. PRE-ARREST: Use entire range of life support measures to stabilize the patient. Care Teams Vet Tech Relationship Specialty Start Date End Date Provider, Merry LARA PCP - General 05/10/18
--- OUTSIDE RECORDS SUMMARY | 2024-10-11 08:07 | XMS_ITS | Clinical Summary ---
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
--- OUTSIDE RECORDS SUMMARY | 2024-10-11 08:07 | XMS_ITS | Clinical Summary ---
Author Organization [facility] Address [address] [place] [address] Care Team Providers Care Data Reduction Technician Name Role Phone AurelianoKade mackay Rock TRAORE Primary Care Provider [phone] Medications acetaminophen (TYLENOL) 325 MG tablet Take [...] Comments Blood Pressure 148/86 06/25/2020 12:00 PM PICK UP ATTENDANT Pulse 89 06/25/2020 12:00 PM PICK UP ATTENDANT Temperature 35.5 C (95.9 F) 06/25/2020 12:00 PM PICK UP ATTENDANT Respiratory Rate 20 06/25/2020 12:00 PM PICK UP ATTENDANT Oxygen Saturation 97% 06/25/2020 12:00 PM PICK UP ATTENDANT Inhaled Oxygen Concentration - - Weight 111 kg (245 lb) 06/25/2020 12:00 PM PICK UP ATTENDANT Height 175.3 cm (5' 9 ) 06/25/2020 12:00 PM PICK UP ATTENDANT Body Mass Index 36.18 06/25/2020 12:00 PM PICK UP ATTENDANT Plan of Treatment Health Maintenance Due Date [...] Influenza Vaccine (#1) 2024 10/09/2014 Insurance [place] [facility] Care Teams Data Reduction Technician Relationship Specialty Start Date End Date Kade Marie DO [address] [facility] [address] [place] [address] PCP - General Family Medicine 03/11/21
--- OUTSIDE RECORDS SUMMARY | 2024-10-11 08:07 | XMS_ITS | Clinical Summary ---
Author Organization [facility] Address [address] [place] [address] Phone Care Team Providers Care Fox Raiser Name Role Phone Unavailable Primary Care Provider Unavailabl e Allergies No known active allergies Medications Medication Sig Dispensed Refills Start Date End Date Status acetaminophen (TYLENOL) 325 MG tablet Take 650 mg by mouth every 6 hours as needed 10/10/2014 Active Blood Glucose Monitoring Suppl (Givey Verio Flex System) w/Device kit 04/15/2021 Active Cholecalciferol (Vitamin D3) 1.25 MG (88577 UT) capsule TAKE 1 CAPSULE BY MOUTH [...]
--- OUTSIDE RECORDS SUMMARY | 2024-10-11 08:07 | XMS_ITS | Patient Health Summary ---
Author Organization [facility] [email or web address] Address [address] [place] [address] Care Team Providers Care Daycare Teacher Name Role Phone Keli Daley RN Unavailable [phone] Mya Gross MD Primary Care Provider [phone] Note from [facility],non-owned Affiliates and Associated Physician Practices is amultiple site organization consisting of ambulatory clinics and hospital sitesin [place], [place], [place] and [place]. This disclosure is being madepursuant to the Care Everywhere program and may not contain all information available regarding this patient. Last updated 18.[facility] [email or web address] Allergies No known active allergies Medications * [...] Performed for End stage renal disease ([facility]) * IR PERITONEAL TUNNEL CATH PLACE(Performed 08/18/2022) Performed for End stage renal disease ([facility]) * SYPHILIS ANTIBODY CASCADING REFLEX(Performed 07/09/2022) Performed for Type 2 diabetes mellitus with hyperosmolarity without coma, without long-term currentuse of insulin ([facility]) * HIV-1 HIV-2 ANTIBODY + HIV P24 AG PANEL(Performed 07/09/2022) Performed for Type 2 diabetes mellitus with hyperosmolarity without coma, without long-term currentuse of insulin ([facility]), Proteinuria, unspecified type * FERRITIN(Performed 07/09/2022) Performed for Anemia of chronic renal failure, unspecified CKD stage, CKD (chronic kidney disease) stage 4, GFR 15-29 ml/min ([facility]) * IRON + TRANSFERRIN PANEL(Performed 07/09/2022) Performed for Anemia of chronic renal failure, unspecified CKD stage, CKD (chronic kidney disease) stage 4, GFR 15-29 ml/min ([facility]) * URINALYSIS REFLEX TO MICROSCOPIC NO CULTURE(Performed 07/09/2022) Performed for Proteinuria, unspecified type, Type 2 diabetes mellitus with hyperosmolarity without coma, without long-term current use of insulin ([facility]) * PROTEIN CREATININE RATIO URINE RANDOM PNL(Performed 07/09/2022) Performed for Proteinuria, unspecified type, Type 2 diabetes mellitus with hyperosmolarity without coma, without long-term current use of insulin ([facility]) * ALDOSTERONE BLOOD(Performed 07/09/2022) Performed for Proteinuria, unspecified type, Type 2 diabetes mellitus with hyperosmolarity without coma, without long-term current use of insulin ([facility]) * VITAMIN D 25-HYDROXY(Performed 07/09/2022) Performed for Proteinuria, unspecified type, Type 2 diabetes mellitus with hyperosmolarity without coma, without long-term current use of insulin ([facility]) * TSH REFLEX FREE T4(Performed 07/09/2022) Performed [...] without long-term current use of insulin ([facility]) * RENIN ACTIVITY(Performed 07/09/2022) Performed for Proteinuria, unspecified type, Type 2 diabetes mellitus with hyperosmolarity without coma, without long-term current use of insulin ([facility]) * HEPATITIS C ANTIBODY(Performed 07/09/2022) Performed for Proteinuria, unspecified type, Type 2 diabetes mellitus with hyperosmolarity without coma, without long-term current use of insulin ([facility]) * HEPATITIS B SURFACE ANTIGEN W RFLX CONFIRMATION(Performed 07/09/2022) Performed for Proteinuria, unspecified type, Type 2 diabetes mellitus with hyperosmolarity without coma, without long-term current use of insulin ([facility]) * HEPATITIS B SURFACE ANTIBODY(Performed 07/09/2022) Performed for Proteinuria, unspecified type, Type 2 diabetes mellitus with hyperosmolarity without coma, without long-term current use of insulin (H[facility]) * PROTEIN ELECTROPHORESIS BLOOD(Performed 07/09/2022) Performed for Proteinuria, unspecified type, Type 2 diabetes mellitus with hyperosmolarity without coma, without long-term current use of insulin ([facility]) * KAPPA/LAMBDA LITE CHAIN FREE PANEL(Performed 07/09/2022) Performed for Proteinuria, unspecified type, Type 2 diabetes mellitus with hyperosmolarity without coma, without long-term current use of insulin ([facility]) * GLOMERULAR BASE MEMBRANE ANTIBODY IGG(Performed 07/09/2022) Performed for Proteinuria, unspecified type, Type 2 diabetes mellitus with hyperosmolarity without coma, without long-term current use of insulin ([facility]) * ERYTHROCYTE SEDIMENTATION RATE(Performed 07/09/2022) Performed for Proteinuria, unspecified type, Type 2 diabetes mellitus with hyperosmolarity without coma, without long-term current use of insulin ([facility]) * DNA ANTIBODY DS CRITHIDIA TITER(Performed 07/09/2022) Performed for Proteinuria, unspecified type, Type 2 diabetes mellitus with hyperosmolarity without coma, without long-term current use of insulin ([facility]) * C-REACTIVE PROTEIN(Performed 07/09/2022) Performed for Proteinuria, unspecified type, Type 2 diabetes mellitus with hyperosmolarity without coma, without long-term current use of insulin ([facility]) * COMPLEMENT C4(Performed 07/09/2022) Performed for Proteinuria, unspecified type, Type 2 diabetes mellitus with hyperosmolarity without coma, without long-term current use of insulin ([facility]) * COMPLEMENT C3(Performed 07/09/2022) Performed for Proteinuria, unspecified type, Type 2 diabetes mellitus with hyperosmolarity without coma, without long-term current use of insulin ([facility]) * AMISHA BLOOD SCREEN W/REFLEX TITER(Performed 07/09/2022) Performed for Proteinuria, unspecified type, Type 2 diabetes mellitus with hyperosmolarity without coma, without long-term current use of insulin ([facility]) * URIC ACID BLOOD(Performed 07/09/2022) Performed for Proteinuria, unspecified type, Type 2 diabetes mellitus with hyperosmolarity without coma, without long-term current use of insulin ([facility]) * MAGNESIUM BLOOD(Performed 07/09/2022) Performed for Proteinuria, unspecified type, Type 2 diabetes mellitus with hyperosmolarity without coma, without long-term current use of insulin ([facility]) * PHOSPHORUS BLOOD(Performed 07/09/2022) Performed for Proteinuria, unspecified type, Type 2 diabetes mellitus with hyperosmolarity without coma, without long-term current use of insulin ([facility]) * COMPREHENSIVE METABOLIC PANEL(Performed 07/09/2022) Performed for Proteinuria, unspecified type, Type 2 diabetes mellitus with hyperosmolarity without coma, without long-term current use of insulin ([facility]) * CBC W AUTO DIFFERENTIAL(Performed 07/09/2022) Performed for Proteinuria, unspecified type, Type 2 diabetes mellitus with hyperosmolarity without coma, without long-term current use of insulin ([facility]) * PHOSPHOLIPASE A2 RECEPTOR AB IGG RFLX TITER(Performed 07/09/2022) Performed for Proteinuria, unspecified type, Type 2 diabetes mellitus with hyperosmolarity without coma, without long-term current use of insulin ([facility]) * US RETROPERITONEAL COMPLETE(Performed 01/29/2016) Performed for CKD (chronic kidney disease), stage 3 (moderate) * VAS ARTERIAL ANKLE ARM INDEX(Performed 01/29/2016) Performed for Intermittent claudication ([facility]) * RENAL FUNCTION PANEL(Performed 10/10/2014) * GLUCOSE [...] fungus isolated MARY 04/13/2023 7:07 AM CDT [facility] Fungus Stain No yeast or hyphae seen 04/13/2023 7:07 AM CDT [facility] Microbiology SPECIMEN FROM ABSCESS / Unknown Collection / Unknown 03/19/2023 4:46 PM CDT 03/19/2023 4:55 PM CDT Adriana Shearer LAB - MICROBIOLOGY ORDERABLES Performing Organization Address City/[facility]/ZIP Co de Phone Number [facility] [address] [place] [address], [facility] [phone] * CULTURE FLUID+GRAM STAIN (03/19/2023 4:46 PM CDT) Culture Rare normal skin prasad MARY 03/24/2023 11:23 AM CDT [facility] Gram Stain Moderate Polymorphonuclear cells 03/24/2023 11:23 AM CDT [facility] Gram Stain No organisms seen 023 11:23 AM CDT [facility] Fluid BODY FLUID SPECIMEN / Unknown Collection / Unknown 03/19/2023 4:46 PM CDT 03/19/2023 4:55 PM CDT Adriana Shearer LAB - MICROBIOLOGY ORDERABLES Performing Organization Address City/[facility]/ZIP Co de Phone Number [facility] [address] [place] [address], [facility] [phone] * (ABNORMAL) CULTURE ANAEROBE (03/19/2023 4:46 PM CDT) Culture Light Finegoldia magna(A) MARY 03/24/2023 2:33 PM CDT [facility] Microbiology SPECIMEN FROM ABSCESS / Unknown Collection / Unknown 03/19/2023 4:46 PM CDT 03/19/2023 4:55 PM CDT Adriana Shearer DO LAB - MICROBIOLOGY ORDERABLES [facility] [address] [place] [address], [facility] [phone] * US SCROTUM AND CONTENTS (03/19/2023 2:42 [...] cyst. > Dictated by Renan Nguyen DO (resident services director). I, Dirk Galarza MD have personally reviewed and interpreted this examination/study. > Interpreting Provider: Dirk Galarza MD on 03/19/2023 3:55 PM Narrative 03/19/2023 3:55 PM CDT PROCEDURE: US SCROTUM AND CONTENTS, DATE/TIME OF EXAM: 03/19/2023 12:44 PM, LOCATION [facility] INDICATION: N50.89: Scrotal swelling ADDITIONAL CLINICAL [...] DATE/TIME OF EXAM: 03/19/2023 12:44 PM, LOCATION [facility] INDICATION: N50.89: Scrotal swelling ADDITIONAL CLINICAL [...] cyst. > Dictated by Renan Nguyen DO (resident services director). I, Dirk Galarza MD have personally reviewed and interpreted this examination/study. > Interpreting Provider: Dirk Galarza MD on 03/19/2023 3:55 PM Lisa Cat Yu MEDICAL RECORD RETRIEVAL SPECIALIST-CODING QUALITY COORDINATOR US ORDERABLE S * SYPHILIS ANTIBODY CASCADING REFLEX (03/19/2023 1:05 PM CDT) Only the most recent of2 resultswithin the time period is included. Treponema pallidum Antibody Non-react amaury Non-react amaury 03/19/2023 2:01 PM [facility] Comment: No Laboratory evidence of syphilis infection. Note: Circulating antibodies may be low or undetectable in early infection. If recent exposure is suspected, re-draw sample in 2-4 weeks and repeat testing. Blood BLOOD SPECIMEN / Unknown Venipuncture / Unknown 03/19/2023 1:05 PM CDT 03/19/2023 1:10 PM CDT Lisa Yu MEDICAL RECORD RETRIEVAL SPECIALIST-CODING QUALITY COORDINATOR LAB - SEROLO GY ORDERABLES [facility] [address] [place] [address], [facility] [phone] * (ABNORMAL) CBC W AUTO DIFFERENTIAL (03/19/2023 1:05 PM CDT) Only the most recent of4 resultswithin the time period is included. WBC 11.9(H) 3.5 - 10.5 10 3/uL 03/19/2023 1:37 PM [facility] RBC 3.65(L) 4.30 - 5.70 10 6/uL 03/19/2023 1:37 PM [facility] Hemoglobin 11.0(L) 12.0 - 17.6 g/dL 03/19/2023 1:37 PM [facility] Hematocrit 33.5(L) 35.2 - 51.7 % 03/19/2023 1:37 PM [facility] MCV 91.8 80.7 - 98.3 fL 03/19/2023 1:37 PM [facility] MCH 30.1 26.7 - 34.0 pg 03/19/2023 1:37 PM [facility] MCHC 32.8 30.8 - 35.9 g/dL 03/19/2023 1:37 PM [facility] RDW-SD 45.1 36.0 - 50.0 fL 03/19/2023 1:37 PM [facility] RDW-CV 13.5 11.2 - 14.8 % 03/19/2023 1:37 PM [facility] Platelet Count 273 150 - 400 10 3/uL 03/19/2023 1:37 PM [facility] MPV 8.5(L) 9.4 - 12.9 fL 03/19/2023 1:37 PM [facility] nRBC Absolute 0.00 0 10 3/uL 03/19/2023 1:37 PM [facility] nRBC Auto 0.0 0 /100 WBC 03/19/2023 1:37 PM [facility] Neutrophils % 72.0(H) 35.0 - 70.0 % 03/19/2023 1:37 PM [facility] Lymphocytes % 18.0(L) 20.0 - 43.0 % 03/19/2023 1:37 PM [facility] Monocytes % 6.3 5.0 - 13.0 % 03/19/2023 1:37 PM [facility] Eosinophils % 2.1 0.0 - 6.0 % 03/19/2023 1:37 PM [facility] Basophil % 0.3 0.0 - 2.0 % 03/19/2023 1:37 PM [facility] Neutrophils Absolute 8.58(H) 1.60 - 7.00 10 3/uL 03/19/2023 1:37 PM [facility] Lymphocyte Absolute 2.15 1.10 - 3.90 10 3/uL 03/19/2023 1:37 PM [facility] Monocytes Absolute 0.75 0.26 - 1.07 10 3/uL 03/19/2023 1:37 PM [facility] Eosinophils Absolute 0.25 0.00 - 0.47 10 3/uL 03/19/2023 1:37 PM [facility] Basophils Absolute 0.04 0.00 - 0.08 10 3/uL 03/19/2023 1:37 PM [facility] Immature Granulocytes % 1.3(H) 0.0 - 1.0 % 03/19/2023 1:37 PM [facility] Immature Granulocytes Absolute 0.16 03/19/2023 1:37 PM [facility] Blood BLOOD SPECIMEN / Unknown Venipuncture / Unknown 03/19/2023 1:05 PM CDT 03/19/2023 1:14 PM CDT Lisa Yu MEDICAL RECORD RETRIEVAL SPECIALIST-CODING QUALITY COORDINATOR LAB - HEMATO LOGY ORDERABLES [facility] [address] [place] [address], [facility] [phone] * (ABNORMAL) COMPREHENSIVE METABOLIC PANEL (03/19/2023 1:05 PM CDT) Only the most recent of3 resultswithin the time period is included. BUN 55(H) 7 - 26 mg/dL 03/19/2023 1:44 PM [facility] Creatinine 7.58(H) 0.71 - 1.16 mg/dL 03/19/2023 1:44 PM [facility] Sodium 138 136 - 145 mmol/L 03/19/2023 1:44 PM [facility] Potassium 4.0 3.5 - 4.5 mmol/L 03/19/2023 1:44 PM [facility] Chloride 103 98 - 107 mmol/L 03/19/2023 1:44 PM [facility] CO2 22 22 - 29 mmol/L 03/19/2023 1:44 PM [facility] Glucose 244(H) 70 - 115 mg/dL 03/19/2023 1:44 PM [facility] Calcium 8.8 8.4 - 10.2 mg/dL 03/19/2023 1:44 PM [facility] Protein Total 8.1 6.0 - 8.3 g/dL 03/19/2023 1:44 PM [facility] Albumin 3.0(L) 3.4 - 5.0 g/dL 03/19/2023 1:44 PM [facility] Bilirubin Total 0.4 0.2 - 1.2 mg/dL 03/19/2023 1:44 PM [facility] Alkaline Phosphatase 86 40 - 150 U/L 03/19/2023 1:44 PM [facility] ALT 11 5 - 55 U/L 03/19/2023 1:44 PM [facility] AST 9 5 - 34 U/L 03/19/2023 1:44 PM CDT [facility] Anion Gap 17 8 - 18 03/19/2023 1:44 PM CDT [facility] BUN/Creatinine Ratio 7 7 - 23 03/19/2023 1:44 PM CDT [facility] Osmolality Calculated 309(H) 270 - 300 mOsm/kg 03/19/2023 1:44 PM CDT [facility] Albumin/Globulin Ratio 0.6(L) 1.1 - 2.3 03/19/2023 1:44 PM CDT [facility] eGFR by CKD-EPI 8(L) >=90 mL/min/1.7 3 m2 03/19/2023 1:44 PM CDT [facility] Blood BLOOD SPECIMEN / Unknown Venipuncture / Unknown 03/19/2023 1:05 PM CDT 03/19/2023 1:14 PM CDT Lisa Yu APRN-CODING QUALITY COORDINATOR LAB - CHEMIS TRY ORDERABLES [address] [address], [facility] [phone] * (ABNORMAL) MAGNESIUM BLOOD (03/19/2023 1:05 PM CDT) Only the most recent of2 resultswithin the time period is included. Magnesium 2.9(H) 1.6 - 2.6 mg/dL 03/19/2023 1:44 PM CDT [facility] Blood BLOOD SPECIMEN / Unknown Venipuncture / Unknown 03/19/2023 1:05 PM CDT 03/19/2023 1:14 PM CDT Lisa Yu MEDICAL RECORD RETRIEVAL SPECIALIST-CODING QUALITY COORDINATOR LAB - CHEMIS TRY ORDERABLES [address] [address], [place] [phone] * IR CENTRAL LINE REMOVAL (09/25/2022 10:41 AM VARNISH MAKER HELPER) Anatomical Region Laterality Modality X-Ray Angiograph y Narrative 09/25/2022 10:45 AM VARNISH MAKER HELPER Mireya Chadwick MD 09/25/2022 10:47 AM VASCULAR [...] Sammy Chadwick M.D. Vascular and Interventional Radiology [facility] V[facility] Access [facility] [phone] CC: Patient's pricing associate: Dr. Placido Aquino Dialysis unit: [facility] Placido Aquino MD IR ORDERABLES * IR PERITONEAL TUNNEL CATH PLACE (08/18/2022 2:31 PM VARNISH MAKER HELPER) Anatomical Region Laterality Modality Abdomen X-Ray Angiograph y Narrative 08/18/2022 2:56 PM VARNISH MAKER HELPER Tim Rodriguez MD 08/18/2022 3:11 PM Choco Ramirez [id number] Date of Procedure: 08/18/2022 Attending Physician: Tim [...] CATHETER, INCLUDING CONTRAST INJECTION, S & I; [id number] 2.SEDATION CODES: SEDATION - MODERATE INITIAL; [id number] The attending surgeon and performing the procedure: Tim Rodriguez MD Composer Teaching Artist: RT Yaima PROCEDURE PERFORMED: 1. PERITONEAL DIALYSIS CATHETER PLACEMENT: INSERTION OF PD CATHETER, INCLUDING CONTRAST INJECTION, S & I; [id number] 2. PERITONEAL DIALYSIS CATHETER PLACEMENT: Pre sternal extension placement: [id number] (ORTIZ) 3. SEDATION CODES: SEDATION - MODERATE INITIAL; [id number] 4. SEDATION CODES: SEDATION - MODERATE ADDITAIONAL 15 MINUTES; [id number] X for Findings: 1. The peritoneal cavity was accessed under fluoroscopic guidance. A 6 Macedonian vascular sheath is observed in the peritoneal [...] was advanced through the needle. A 16 Macedonian peel-away sheath was advanced over the wire [...] time the subcutaneous tissue was with 2 [id number] sutures using 2-0 vicryl and and skin was closed with a single running subcuticular suture using 2-0 Prolene along both of the incision. Sterile dressing was applied. Moderate sedation was ordered by nm and administer intravenously and monitored by the [...] Rodriguez MD 08/18/2022 2:56 PM [phone] Dem[facility] Anni Stratton MD IR ORDERABLES * PHOSPHOLIPASE A2 RECEPTOR AB IGG RFLX TITER (07/09/2022 11:06 AM VARNISH MAKER HELPER) Phospholipase A2 Receptor IgG <1:10 <1:10 07/11/2022 7:15 AM VARNISH MAKER HELPER [place] ([facility]) Comment: Phospholipase A2 Receptor Antibody, IgG is not detected. No further testing will be performed. Performed By: [facility] [address] [place] [address] Cashier Greeter: David Payne MD, PhD Blood BLOOD SPECIMEN / Unknown Lab Venipuncture / Unknown 07/09/2022 11:06 AM VARNISH MAKER HELPER 07/09/2022 11:59 AM VARNISH MAKER HELPER Chela Lanier MD LAB - CHEMISTRY MICHAELA HOLMAN [place] ([facility]) [address] * (ABNORMAL) PTH INTACT W/O CALCIUM (07/09/2022 11:06 AM VARNISH MAKER HELPER) PTH Intact 465.6(H) 8.0 - 77.0 pg/mL 07/09/2022 12:42 PM VARNISH MAKER HELPER [facility] Blood BLOOD SPECIMEN / Unknown Lab Venipuncture / Unknown 07/09/2022 11:06 AM VARNISH MAKER HELPER 07/09/2022 12:04 PM VARNISH MAKER HELPER Chela Lanire MD LAB - CHEMISTRY MICHAELA HOLMAN Performing Organization Address City/[facility]/ZIP Co de Phone Number [address] [address], [facility] [phone] * HIV-1 HIV-2 ANTIBODY + HIV P24 AG PANEL (07/09/2022 11:06 AM VARNISH MAKER HELPER) HIV Antigen/Antibod y 1 & 2 Non-reacti ve Non-react amaury 07/09/2022 12:51 PM VARNISH MAKER HELPER [facility] Comment:No Laboratory eviden ce of HIV infection. Blood BLOOD SPECIMEN / Unknown Lab Venipuncture / Unknown 07/09/2022 11:06 AM VARNISH MAKER HELPER 07/09/2022 11:59 AM VARNISH MAKER HELPER Chela Lanier MD LAB - CHEMISTRY MICHAELA HOLMAN Performing Organization Address [facility]/ZIP Co de Phone Number [address] [address], [facility] [phone] * DNA ANTIBODY DS CRITHIDIA TITER (07/09/2022 11:06 AM VARNISH MAKER HELPER) dsDNA Antibody IgG <1:10 <1:10 2021 12:02 AM VARNISH MAKER HELPER [facility] ([facility]) Comment: INTERPRETIVE INFORMATION: Double-Stranded DNA (dsDNA) Antibody, [...] recommendations for testing may be found at [email or web address] [email or web address]. Performed By: [facility] [address] [place] [address] Cashier Greeter: David Payne MD, PhD Blood BLOOD SPECIMEN / Unknown Lab Venipuncture / Unknown 07/09/2022 11:06 AM VARNISH MAKER HELPER 07/09/2022 11:59 AM VARNISH MAKER HELPER Chela Lanier MD LAB - SEROLOGY ORDER SHAUNA Performing Organization Address City/[facility]/ZIP Co de Phone Number [facility] ([facility]) [address] [place] [address] * TSH REFLEX FREE T4 (07/09/2022 11:06 AM VARNISH MAKER HELPER) TSH 1.909 0.350 - 4.940 uIU/mL 07/09/2022 12:57 PM VARNISH MAKER HELPER [facility] Blood BLOOD SPECIMEN / Unknown Lab Venipuncture / Unknown 07/09/2022 11:06 AM VARNISH MAKER HELPER 07/09/2022 12:05 PM VARNISH MAKER HELPER Chela Lanier MD LAB - CHEMISTRY ORDDonna HOLMAN Performing Organization Address City/[facility]/ZIP Co de Phone Number [address] [address], [facility] [phone] * (ABNORMAL) URIC ACID BLOOD (07/09/2022 11:06 AM VARNISH MAKER HELPER) Uric Acid 8.2(H) 3.5 - 7.2 mg/dL 07/09/2022 12:34 PM VARNISH MAKER HELPER [facility] Blood BLOOD SPECIMEN / Unknown Lab Venipuncture / Unknown 07/09/2022 11:06 AM VARNISH MAKER HELPER 07/09/2022 12:04 PM VARNISH MAKER HELPER Chela Lanier MD LAB - CHEMISTRY MICHAELA HOLMAN [facility] [address] [place] [address], [facility] [phone] * (ABNORMAL) URINALYSIS REFLEX TO MICROSCOPIC NO CULTURE (07/09/2022 11:06 AM VARNISH MAKER HELPER) Color UA Yellow Straw, Yellow 07/09/2022 12:37 PM [facility] Clarity UA Clear Clear 07/09/2022 12:37 PM [facility] Specific [place]lord UA 1.025 1.005 - 1.030 07/09/2022 12:37 PM [facility] pH UA 5.5 5.0 - 8.0 pH 07/09/2022 12:37 PM [facility] Protein UA 3+(A) Negative 07/09/2022 12:37 PM [facility] Glucose UA 1+(A) Negative 07/09/2022 12:37 PM [facility] Ketone UA Negative Negative 07/09/2022 12:37 PM [facility] Bilirubin UA Negative Negative 07/09/2022 12:37 PM [facility] Blood UA 2+(A) Negative 07/09/2022 12:37 PM [facility] Nitrite UA Negative Negative 07/09/2022 12:37 PM [facility] Leukocyte Esterase Negative Negative 07/09/2022 12:37 PM [facility] Urobilinogen UA Negative Negative mg/dL 07/09/2022 12:37 PM [facility] RBC UA 6-10(A) None Seen, 0-2, 3-5 /HPF 07/09/2022 12:37 PM [facility] WBC UA 6-10(A) None Seen, 0-5 /HPF 07/09/2022 12:37 PM [facility] Squamous Epithelial Cells UA None Seen None Seen, 0-2, 3-5 /HPF 07/09/2022 12:37 PM [facility] Urine URINE SPECIMEN OBTAINED BY CLEAN CATCH PROCEDURE / Unknown Collection / Unknown 07/09/2022 11:06 AM VARNISH MAKER HELPER 07/09/2022 11:59 AM [facility] - 07/09/2022 12:37 PM VARNISH MAKER HELPER Chela Lanier MD LAB - URINALYSIS ORD ERABLES [facility] [address] [place] [address], [facility] [phone] * (ABNORMAL) C-REACTIVE PROTEIN (07/09/2022 11:06 AM VARNISH MAKER HELPER) Pathologist [facility] C-Reactive Protein 7.5(H) <=0.5 mg/dL 07/09/2022 12:33 PM VARNISH MAKER HELPER [facility] Blood BLOOD SPECIMEN / Unknown Lab Venipuncture / Unknown 07/09/2022 11:06 AM VARNISH MAKER HELPER 07/09/2022 11:59 AM VARNISH MAKER HELPER Chela Lanier MD LAB - CHEMISTRY ORDE RABLES Performing Organization Address [facility]/ZIP Co de Phone Number [address] [address], [facility] [phone] * AMISHA BLOOD SCREEN W/REFLEX TITER (07/09/2022 11:06 AM VARNISH MAKER HELPER) Pathologist [facility] AMISHA IgG None Detected None Detected 07/10/2022 10:32 PM VARNISH MAKER HELPER [place] ([facility]) Comment: If suspicion of connective tissue disease is strong and AMISHA EIA is negative, consider testing for AMISHA by IFA ([id number]). INTERPRETIVE INFORMATION: Anti-Nuclear Antibodies (AMISHA), IgG by RADHA Antinuclear Antibodies (AMISHA), IgG by RADHA: AMISHA specimens are screened using enzyme-linked immunosorbent assay (RADHA) methodology. All RADHA results reported as Detected are further tested by indirect fluorescent assay (IFA) using HEp-2 substrate with an IgG-specific conjugate. The AMISHA RADHA screen is designed to detect antibodies against dsDNA, histones, SS-A (Ro), SS-B (La), West, West/CAREER PORTALS TEACHER, Scl-70, Portia-1, centromeric proteins, other antigens extracted from the HEp-2 cell nucleus. AMISHA RADHA assays have been reported to have lower sensitivities than AMISHA IFA for systemic autoimmune rheumatic diseases (SARD). Negative results do not necessarily rule out SARD. Performed By: [facility] [address] [place] [address] Cashier Greeter: David Payne MD, PhD Blood BLOOD SPECIMEN / Unknown Lab Venipuncture / Unknown 07/09/2022 11:06 AM VARNISH MAKER HELPER 07/09/2022 11:59 AM VARNISH MAKER HELPER Chela Lanier MD LAB - CHEMISTRY MICHAELA HOLMAN [place] ([facility]) [address] [place] [address], [facility] * RENIN ACTIVITY (07/09/2022 11:06 AM VARNISH MAKER HELPER) Pathologist [facility] Renin 0.4 ng/mL/hr 07/13/2022 8:59 AM VARNISH MAKER HELPER [place] ([facility]) Comment: INTERPRETIVE INFORMATION: Renin Activity Adult, Normal [...] developed and its performance characteristics determined by [facility]. It has not been cleared or approved by the US Food and Drug Administration. This test was performed in a CLIA certified laboratory and is intended for clinical purposes. Performed By: [place] [address] Cashier Greeter: David Payne MD, PhD Blood BLOOD SPECIMEN / Unknown Lab Venipuncture / Unknown 07/09/2022 11:06 AM VARNISH MAKER HELPER 07/09/2022 12:00 PM VARNISH MAKER HELPER Chela Lanier MD LAB - CHEMISTRY MICHAELA HOLMAN [facility]) [address] [place] [address] * (ABNORMAL) HEMOGLOBIN A1C (07/09/2022 11:06 AM [facility]) Only the most recent of2 resultswithin the [...] to evaluate metabolic control in patients. Reference: [place] [employer], Standards of Care in Diabetes -2020 In patients 70 years and older consider HbA1c target range of 7.0-7.5% (Reference: Juancho Wilkerson et al. JAMDA. 2012) The Sebia assay for the measurement of HbA1c is a National Glycohemoglobin Standardization Program (NGSP) certified method. Blood BLOOD SPECIMEN / Unknown Lab Venipuncture / Unknown 07/09/2022 11:06 AM VARNISH MAKER HELPER 07/09/2022 12:04 PM VARNISH MAKER HELPER Chela Lanier MD LAB - CHEMISTRY MICHAELA HOLMAN Performing Organization Address [facility]/ZIP Co de Phone Number [address] [address], [facility] [phone] * GLOMERULAR BASE MEMBRANE ANTIBODY IGG (07/09/2022 11:06 AM VARNISH MAKER HELPER) GBM Antibody IgG (EU) 0 0 - 19 AU/mL 07/13/2022 2:56 PM VARNISH MAKER HELPER [place] ([facility]) Comment: INTERPRETIVE INFORMATION: GBM Ab, IgG by [...] and assessment of renal prognosis. Performed By: [facility] [address] [place] [address] Cashier Greeter: David Payne MD, PhD Blood BLOOD SPECIMEN / Unknown Lab Venipuncture / Unknown 07/09/2022 11:06 AM VARNISH MAKER HELPER 07/09/2022 11:59 AM VARNISH MAKER HELPER Chela Lanier MD LAB - CHEMISTRY MICHAELA HOLMAN Performing Organization Address City/[facility]/ZIP Co de Phone Number [facility]) [address] * (ABNORMAL) VITAMIN D 25-HYDROXY (07/09/2022 11:06 AM VARNISH MAKER HELPER) Vitamin D, 25 Hydroxy 16.0(L) 30.0 - 80.0 ng/mL 07/09/2022 12:53 PM VARNISH MAKER HELPER [facility] Comment: The recommendations for 25-Hydroxy Vitamin [...] Lab Venipuncture / Unknown 07/09/2022 11:06 AM VARNISH MAKER HELPER 07/09/2022 12:04 PM VARNISH MAKER HELPER Chela Lanier MD LAB - CHEMISTRY MICHAELA HOLMAN [facility] Organization Address City/State/ZIP Co de Phone Number [address] [address], [facility] [phone] * ALDOSTERONE BLOOD (07/09/2022 11:06 AM VARNISH MAKER HELPER) Aldosterone 23.3 ng/dL 07/11/2022 9:53 PM VARNISH MAKER HELPER [place] ([facility]) Comment: INTERPRETIVE INFORMATION: Aldosterone, Serum Reference intervals [...] reference intervals for this test in the [employer] international Laboratory Test Directory ([employer]). Performed By: [facility] [address] [place] [address] Cashier Greeter: David Payne MD, PhD Blood BLOOD SPECIMEN / Unknown Lab Venipuncture / Unknown 07/09/2022 11:06 AM VARNISH MAKER HELPER 07/09/2022 11:59 AM VARNISH MAKER HELPER Chela Lanier MD LAB - CHEMISTRY MICHAELA HOLMAN Performing Organization Address [facility] de Phone Number [facility]) [address] [place] [address] * (ABNORMAL) KAPPA/LAMBDA LITE CHAIN FREE PANEL (07/09/2022 11:06 AM VARNISH MAKER HELPER) Shaw Quant Free Light Chain 279.93(H) 3.30 - 19.40 mg/L 07/10/2022 10:38 PM VARNISH MAKER HELPER [facility] ([facility]) Comment: INTERPRETIVE INFORMATION: Shaw Qnt Free Light Chains Undetected antigen excess is a rare event but cannot be excluded. Free light chain results should always be interpreted in conjunction with other clinical and laboratory findings. Lambda Free Light Chain Quantitative 210.94(H) 5.71 - 26.30 mg/L 07/10/2022 10:38 PM VARNISH MAKER HELPER [facility] ([facility]) Comment: INTERPRETIVE INFORMATION: Lambda Qnt Free Light Chains Undetected antigen excess is a rare event but cannot be excluded. Free light chain results should always be interpreted in conjunction with other clinical and laboratory findings. Shaw/Lambda Free Light Chain ratio 1.33 0.26 - 1.65 07/10/2022 10:38 PM VARNISH MAKER HELPER [facility] ([facility]) Comment: Performed By: [facility] [address] [place] [address] Cashier Greeter: David Payne MD, PhD Blood BLOOD SPECIMEN / Unknown Lab Venipuncture / Unknown 07/09/2022 11:06 AM VARNISH MAKER HELPER 07/09/2022 11:59 AM VARNISH MAKER HELPER Chela Lanier MD LAB - CHEMISTRY MICHAELA HOLMAN Performing Organization Address [facility]/ZIP Co de Phone Number [facility] ([facility]) [address] * (ABNORMAL) ERYTHROCYTE SEDIMENTATION RATE (07/09/2022 11:06 AM VARNISH MAKER HELPER) Erythrocyte Sedimentation Rate Westergren 105(H) 0 - 15 MM/HR 07/09/2022 12:34 PM VARNISH MAKER HELPER [facility] Blood BLOOD SPECIMEN / Unknown Lab Venipuncture / Unknown 07/09/2022 11:06 AM VARNISH MAKER HELPER 07/09/2022 12:04 PM VARNISH MAKER HELPER Chela Lanier MD LAB - HEMATOLOGY ORD ERABLES Performing Organization Address City/[facility]/ZIP Co de Phone Number [address] [address], [place] [phone] * COMPLEMENT C4 (07/09/2022 11:06 AM VARNISH MAKER HELPER) Complement C4 39 15 - 57 mg/dL 07/09/2022 12:39 PM VARNISH MAKER HELPER [facility] Blood BLOOD SPECIMEN / Unknown Lab Venipuncture / Unknown 07/09/2022 11:06 AM VARNISH MAKER HELPER 07/09/2022 12:05 PM VARNISH MAKER HELPER Chela Lanier MD LAB - SEROLOGY ORDER SHAUNA Performing Organization Address City/[facility] Co de Phone Number [address] [address], [place] [phone] * (ABNORMAL) PROTEIN CREATININE RATIO URINE RANDOM PNL (07/09/2022 11:06 AM VARNISH MAKER HELPER) Protein Urine 450 Not Established mg/dL 07/09/2022 1:03 PM [facility] Comment:Result obtained by d ilution. Creatinine Urine 43 Not Established mg/dL 07/09/2022 1:03 PM [facility] Comment:Result obtained by d ilution. Protein/Creati nine Ratio Urine 10.47(H) <0.10 07/09/2022 1:03 PM [facility] Urine URINE SPECIMEN OBTAINED BY CLEAN CATCH PROCEDURE / Unknown Collection / Unknown 07/09/2022 11:06 AM VARNISH MAKER HELPER 07/09/2022 11:59 AM VARNISH MAKER HELPER Chela Lanier MD LAB - URINE CHEMISTR Y ORDERABLES Performing Organization Address City/[facility]/ZIP Co de Phone Number [address] [address], [place] [phone] * (ABNORMAL) PHOSPHORUS BLOOD (07/09/2022 11:06 AM VARNISH MAKER HELPER) Pathologist [facility] Phosphorus 7.8(H) 2.8 - 5.1 mg/dL 07/09/2022 12:39 PM VARNISH MAKER HELPER [facility] Blood BLOOD SPECIMEN / Unknown Lab Venipuncture / Unknown 07/09/2022 11:06 AM VARNISH MAKER HELPER 07/09/2022 12:05 PM VARNISH MAKER HELPER Chela Lanier MD LAB - CHEMISTRY MICHAELA HOLMAN [facility] [address] [place] [phone], [facility] [phone] * HEPATITIS B SURFACE ANTIBODY (07/09/2022 11:06 AM VARNISH MAKER HELPER) [facility] Hepatitis B Virus Surface Antibody Non-react amaury Non-react amaury 07/09/2022 12:51 PM VARNISH MAKER HELPER [facility] Comment: < 8 mIU/mL Hepatitis B surface Antibody (HBsAb). Nonreactive for HBsAb - individual is considered not immune to Hepatitis B Virus infection. Hepatitis B Surface Antibody Quantitative 0.4 <8.0 mIU/mL 07/09/2022 12:51 PM [facility] Comment: Hepatitis B Surface Antibody Numeric Result Interpretation: Nonreactive: <8.0 mIU/mL Indeterminate: 8.0 - 12.0 mIU/mL Reactive: >12.0 mIU/mL Blood BLOOD SPECIMEN / Unknown Lab Venipuncture / Unknown 07/09/2022 11:06 AM VARNISH MAKER HELPER 07/09/2022 11:59 AM VARNISH MAKER HELPER Chela Lanier MD LAB - CHEMISTRY MICHAELA HOLMAN [facility] [address] [place] [address], [facility] [phone] * HEPATITIS B SURFACE ANTIGEN W RFLX CONFIRMATION (07/09/2022 11:06 AM VARNISH MAKER HELPER) Pathologist [facility] Hepatitis B Virus Surface Antigen Non-reacti ve Non-reacti ve 07/09/2022 12:51 PM VARNISH MAKER HELPER [facility] Blood BLOOD SPECIMEN / Unknown Lab Venipuncture / Unknown 07/09/2022 11:06 AM VARNISH MAKER HELPER 07/09/2022 11:59 AM VARNISH MAKER HELPER Chela Lanier MD LAB - CHEMISTRY MICHAELA HOLMAN Performing Organization Address City/[facility]/ZIP Co de Phone Number [address] [address], [facility] [phone] * T4 FREE (07/09/2022 11:06 AM VARNISH MAKER HELPER) T4 Free 1.0 0.7 - 1.5 ng/dL 07/09/2022 12:57 PM VARNISH MAKER HELPER [facility] Blood BLOOD SPECIMEN / Unknown Lab Venipuncture / Unknown 07/09/2022 11:06 AM VARNISH MAKER HELPER 07/09/2022 12:05 PM VARNISH MAKER HELPER Chela Lanier MD LAB - CHEMISTRY MICHAELA HOLMAN [address] [address], [facility] [phone] * (ABNORMAL) PROTEIN ELECTROPHORESIS BLOOD (07/09/2022 11:06 AM VARNISH MAKER HELPER) Interpretation Serum PE See Comment Normal Pattern 07/17/2022 2:19 PM [facility] Comment: Serum capillary electrophoresis shows characteristic [...] 6.0 - 8.3 g/dL 07/17/2022 2:19 PM [facility] Albumin 3.4 3.3 - 5.6 g/dL 07/17/2022 2:19 PM [facility] Alpha-1 Globulins 0.4 0.2 - 0.4 g/dL 07/17/2022 2:19 PM [facility] Alpha-2 Globulins 1.2(H) 0.5 - 1.0 g/dL 07/17/2022 2:19 PM [facility] Beta Globulins 1.1 0.6 - 1.1 g/dL 07/17/2022 2:19 PM [facility] Gamma Globulins 1.7(H) 0.6 - 1.6 g/dL 07/17/2022 2:19 PM [facility] Blood BLOOD SPECIMEN / Unknown Lab Venipuncture / Unknown 07/09/2022 11:06 AM VARNISH MAKER HELPER 07/09/2022 11:59 AM VARNISH MAKER HELPER Chela Lanier MD LAB - CHEMISTRY MICHAELA HOLMAN [address] [address], [place] [phone] * (ABNORMAL) IRON + TRANSFERRIN PANEL (07/09/2022 11:06 AM VARNISH MAKER HELPER) Only the most recent of2 resultswithin the time period is included. Pathologist [facility] Iron 33(L) 50 - 175 ug/dL 07/09/2022 12:33 PM [facility] Transferrin 189 174 - 382 mg/dL 07/09/2022 12:33 PM [facility] Transferrin Saturation % 14(L) 16 - 50 % 07/09/2022 12:33 PM [facility] TIBC Calculated 236(L) 240 - 450 ug/dL 07/09/2022 12:33 PM [facility] Blood BLOOD SPECIMEN / Unknown Lab Venipuncture / Unknown 07/09/2022 11:06 AM VARNISH MAKER HELPER 07/09/2022 11:59 AM VARNISH MAKER HELPER Chela Lanier MD LAB - CHEMISTRY MICHAELA HOLMAN [address] [address], [place] [phone] * HEPATITIS C ANTIBODY (07/09/2022 11:06 AM VARNISH MAKER HELPER) Hepatitis C Antibody Non-react amaury Non-reac tive [...] Lab Venipuncture / Unknown 07/09/2022 11:06 AM VARNISH MAKER HELPER 07/09/2022 11:59 AM VARNISH MAKER HELPER Chela Lanier MD LAB - CHEMISTRY MICHAELA HOLMAN [address] [address], [place] [phone] * FERRITIN (07/09/2022 11:06 AM VARNISH MAKER HELPER) Ferritin 121 22 - 275 ng/mL 07/09/2022 12:51 PM [facility] Blood BLOOD SPECIMEN / Unknown Lab Venipuncture / Unknown 07/09/2022 11:06 AM VARNISH MAKER HELPER 07/09/2022 11:59 AM VARNISH MAKER HELPER Chela Lanier MD LAB - CHEMISTRY MICHAELA HOLMAN [address] [address], [place] [phone] * (ABNORMAL) LIPID PROFILE (07/09/2022 11:06 AM VARNISH MAKER HELPER) Cholesterol Total 281(H) <200 mg/dL 07/09/2022 12:39 PM [facility] HDL 40(L) >40 mg/dL 07/09/2022 12:39 PM [facility] Comment: ATP III Classification of HDL Cholesterol: <40 mg/dL: Considered a major risk factor. >60 mg/dL: Considered a negative risk factor. LDL Calculated 195(H) <100 mg/dL 07/09/2022 12:39 PM [facility] Comment: ATP III Classification of LDL Cholesterol: <100 mg/dL: Optimal 100 - 129 mg/dL: Near Optimal/Above Optimal 130 - 159 mg/dL: Borderline High 160 - 189 mg/dL: High >190 mg/dL: Very High Triglycerides 229(H) <150 mg/dL 07/09/2022 12:39 PM VARNISH MAKER HELPER [facility] Comment: ATP III Classification of Triglycerides: <150 mg/dL: Normal 150 - 199 mg/dL: Borderline High 200 - 400 mg/dL: High >500 mg/dL: Very High Blood BLOOD SPECIMEN / Unknown Lab Venipuncture / Unknown 07/09/2022 11:06 AM VARNISH MAKER HELPER 07/09/2022 12:05 PM VARNISH MAKER HELPER Chela Lanier MD LAB - CHEMISTRY MICHAELA HOLMAN [address] [address], [place] [phone] * COMPLEMENT C3 (07/09/2022 11:06 AM VARNISH MAKER HELPER) Complement C3 141 82 - 193 mg/dL 07/09/2022 12:39 PM [facility] Blood BLOOD SPECIMEN / Unknown Lab Venipuncture / Unknown 07/09/2022 11:06 AM VARNISH MAKER HELPER 07/09/2022 12:05 PM VARNISH MAKER HELPER Chela Lanier MD LAB - CHEMISTRY MICHAELA HOLMAN Performing Organization Address [facility]/ZIP Co de Phone Number [address] [address], [place] [phone] * US RETROPERITONEAL COMPLETE (KIDNEYS) (01/29/2016 3:33 [...] CDT) Anatomical Region Laterality Modality Ultrasound 01/29/2016 2:0 2 PM CDT Narrative Procedure Note Diamond Null MD - 01/29/2016 [place] [address] Lower Extremity Arterial Doppler Report Pat.Name: CHOCO RAMIREZ Pat.ID: [id number] St.Date: 01/29/2016 Exam Time: 2:02:00 PM Study Type:NOBLE/PVR Age: 3 1980,35Y Sex: MALE Sonogrphr: Aby Martínez RVT Pat. Stat.:Outpatient Reason for Study:Pain -Leg, right Procedures:Ankle Arm Index Visit ID: [id number] SUMMARY: There is no evidence of arterial insufficiency in either the right or left lower extremity. FINDINGS: Procedure: The arterial vasculature of the lower extremities was evaluated by analysis of Doppler pressures and waveforms obtained in the legs at rest. Study Quality: This study is of adequate technical quality. Rt Leg: Arterial doppler waveforms of the right RECYCLING ATTENDANT are triphasic. Arterial doppler waveforms of the right DPA are triphasic. Lt Leg: Arterial doppler waveforms of the left RECYCLING ATTENDANT are triphasic. Arterial doppler waveforms of the [...] (ABNORMAL) RENAL FUNCTION PANEL (10/10/2014 12:11 PM VARNISH MAKER HELPER) Glucose 172(H) 74 - 106 mg/dL 10/10/2014 12:33 PM VARNISH MAKER HELPER [facility] Sodium 137 136 - 145 mmol/L 10/10/2014 12:33 PM VARNISH MAKER HELPER [facility] Potassium 3.7 3.5 - 5.1 mmol/L 10/10/2014 12:33 PM VARNISH MAKER HELPER [facility] Chloride 107 98 - 107 mmol/L 10/10/2014 12:33 PM VARNISH MAKER HELPER [facility] CO2 22 22 - 31 mmol/L 10/10/2014 12:33 PM VARNISH MAKER HELPER [facility] Calcium 7.4(L) 8.5 - 10.1 mg/dL 10/10/2014 12:33 PM VARNISH MAKER HELPER [facility] Anion Gap 8 5 - 15 mmol/L 10/10/2014 12:33 PM [facility] BUN 12 7 - 21 mg/dL 10/10/2014 12:33 PM [facility] Creatinine 1.02 0.50 - 1.30 mg/dL 10/10/2014 12:33 PM [facility] Albumin 2.5(L) 3.4 - 5.0 gm/dL 10/10/2014 12:33 PM [facility] Phosphorus 1.9(L) 2.5 - 4.9 mg/dL 10/10/2014 12:33 PM [facility] eGFR by MDRD >60 >60 mL/min/1.7 3m2 10/10/2014 12:33 PM [facility] eGFR by MDRD >60 >60 mL/min/1.7 3m2 10/10/2014 12:33 PM VARNISH MAKER HELPER [facility] Blood BLOOD SPECIMEN / Unknown 10/10/2014 12:11 PM VARNISH MAKER HELPER 10/10/2014 12:10 PM VARNISH MAKER HELPER Adam Cheema MD LAB - CHEMISTRY ORDE RABREBECCA Performing Organization Address City/[facility]/ZIP Co de Phone Number [facility] [address] [place] [address] * (ABNORMAL) GLUCOSE - POINT OF CARE (10/10/2014 11:47 AM VARNISH MAKER HELPER) Only the most recent of7 resultswithin the time period is included. [facility] Glucose WB/POC 199(H) 70 - 106 mg/dL 10/10/2014 2:24 PM VARNISH MAKER HELPER [facility] Blood BLOOD SPECIMEN / Unknown 10/10/2014 11:47 AM VARNISH MAKER HELPER 10/10/2014 2:24 PM VARNISH MAKER HELPER Adam Cheema MD LAB - POINT OF CARE ORDERABLES Performing Organization Address [facility] Co de Phone Number [facility] [address] [place] [address] * (ABNORMAL) FOLATE (10/10/2014 5:31 AM VARNISH MAKER HELPER) Folate 18.6(H) 3.1 - 17.5 ng/mL 10/10/2014 6:15 AM VARNISH MAKER HELPER [facility] Blood BLOOD SPECIMEN / Unknown 10/10/2014 5:31 AM VARNISH MAKER HELPER 10/10/2014 5:38 AM VARNISH MAKER HELPER Neeraj Rogers MD LAB - CHEMISTRY MICHAELA HOLMAN Performing Organization Address [facility] Co de Phone Number [facility] [address] [place] [address] * VITAMIN B12 (10/10/2014 5:31 AM VARNISH MAKER HELPER) Pathologist [facility] Vitamin B12 904 211 - 911 pg/mL 10/10/2014 11:[address] [facility] Blood BLOOD SPECIMEN / Unknown 10/10/2014 5:31 AM VARNISH MAKER HELPER 10/10/2014 5:38 AM VARNISH MAKER HELPER Neeraj Rogers MD LAB - CHEMISTRY MICHAELA HOLMAN Performing Organization Address [facility] Co de Phone Number [facility] [address] [place] [address] * TSH (10/10/2014 5:31 AM VARNISH MAKER HELPER) Pathologist [facility] TSH 3.69 0.358 - 3.740 uIU/mL 10/10/2014 6:08 AM [facility] Blood BLOOD SPECIMEN / Unknown 10/10/2014 5:31 AM VARNISH MAKER HELPER 10/10/2014 5:38 AM VARNISH MAKER HELPER Neeraj Rogers MD LAB - CHEMISTRY MICHAELA HOLMAN Performing Organization Address [facility] Co de Phone Number [facility] [address] [place] [address] * (ABNORMAL) BASIC METABOLIC PANEL (CALCIUM TOTAL) (10/09/2014 3:56 AM VARNISH MAKER HELPER) Pathologist [facility] Glucose 141(H) 74 - 106 mg/dL 10/09/2014 4:28 AM VARNISH MAKER HELPER [facility] Sodium 136 136 - 145 mmol/L 10/09/2014 4:28 AM [facility] Potassium 3.4(L) 3.5 - 5.1 mmol/L 10/09/2014 4:28 AM [facility] Chloride 108(H) 98 - 107 mmol/L 10/09/2014 4:28 AM [facility] CO2 19(L) 22 - 31 mmol/L 10/09/2014 4:28 AM [facility] Calcium 6.9(LL) 8.5 - 10.1 mg/dL 10/09/2014 4:28 AM [facility] Anion Gap 9 5 - 15 mmol/L 10/09/2014 4:28 AM [facility] BUN 19 7 - 21 mg/dL 10/09/2014 4:28 AM [facility] Creatinine 1.50(H) 0.50 - 1.30 mg/dL 10/09/2014 4:28 AM [facility] eGFR by MDRD 54(L) >60 mL/min/1.7 3m2 10/09/2014 4:28 AM [facility] eGFR by MDRD >60 >60 mL/min/1.7 3m2 10/09/2014 4:28 AM [facility] Blood BLOOD SPECIMEN / Unknown 10/09/2014 3:56 AM VARNISH MAKER HELPER 10/09/2014 4:03 AM VARNISH MAKER HELPER Marcy Lovelace PA-C LAB - CHEMISTRY O RDERABLES [facility] [address] [place] [address] * US ABDOMEN LIMITED (GB/liver/pancreas) (10/08/2014 7:24 PM VARNISH MAKER HELPER) Anatomical Region Laterality Modality Abdomen Ultrasound 10/08/2014 7:31 PM VARNISH MAKER HELPER Impressions 10/08/2014 7:34 PM VARNISH MAKER HELPER Cholelithiasis. Please see above for other findings. Narrative 10/08/2014 7:34 PM VARNISH MAKER HELPER GALLBLADDER ULTRASOUND INDICATION: Nausea. Abdominal pain. Fever. [...] ORDERABLES * CULTURE BLOOD (10/08/2014 5:09 PM VARNISH MAKER HELPER) Only the most recent of2 resultswithin the time period is included. Culture No Growth MARY 10/14/2014 5:02 AM CDT [facility] MICROBIOLOGY Blood PERIPHERAL BLOOD / Unknown 10/08/2014 5:09 PM VARNISH MAKER HELPER 10/08/2014 5:26 PM VARNISH MAKER HELPER Marcy Lovelace PA-C LAB - MICROBIOLOG Y ORDERABLES [facility] MICROBIOLOGY [address] [id number] * CT ABDOMEN AND PELVIS NON IV CONTRAST (10/08/2014 5:08 PM VARNISH MAKER HELPER) Anatomical Region Laterality Modality Abdomen, Pelvis Computed Tomogra phy 10/08/2014 5:14 PM VARNISH MAKER HELPER Impressions 10/08/2014 5:16 PM VARNISH MAKER HELPER Numerous mildly enlarged intra-abdominal and retroperitoneal lymph nodes are identified. Suspect cholelithiasis and hepatic steatosis. Narrative 10/08/2014 5:16 [address] abdomen pelvis without IV contrast Indication: [...] MICROSCOPIC ONLY W/REFLEX CULTURE (10/08/2014 4:50 PM VARNISH MAKER HELPER) RBC UA 5-10(A) 0-2, 2-5 # /hpf 10/08/2014 5:40 PM VARNISH MAKER HELPER [facility] WBC UA 10-20(A) 0-2, 2-5 # /hpf 10/08/2014 5:40 PM VARNISH MAKER HELPER [facility] Bacteria UA 1+(A) None Seen 10/08/2014 5:40 PM VARNISH MAKER HELPER [facility] Epithelial Cell UA 2-5 0-2, 2-5 10/08/2014 5:40 PM VARNISH MAKER HELPER [facility] Hyaline Casts 0-2 0 - 2 # /lpf 10/08/2014 5:40 PM VARNISH MAKER HELPER [facility] Fine Granular Casts 20-50(A) None Seen # /lpf 10/08/2014 5:40 PM VARNISH MAKER HELPER [facility] Reflex Status Culture to follow 10/08/2014 5:40 PM VARNISH MAKER HELPER [facility] Urine URINE SPECIMEN OBTAINED BY CLEAN CATCH PROCEDURE / Unknown 10/08/2014 4:50 PM VARNISH MAKER HELPER 10/08/2014 4:57 PM VARNISH MAKER HELPER Cameron Martinez MD LAB - URINALYSIS ORDERABLES [facility] [address] [place], [place] [id number] * (ABNORMAL) URINALYSIS ROUTINE W/REFLEX TO CULTURE (10/08/2014 4:50 PM VARNISH MAKER HELPER) Color UA Dark Yellow Straw, Yellow, Dark Yellow 10/08/2014 5:12 PM VARNISH MAKER HELPER [facility] Clarity UA Turbid 10/08/2014 5:12 PM VARNISH MAKER HELPER [facility] Specific [place]lord UA 1.026 1.005 - 1.030 10/08/2014 5:12 PM VARNISH MAKER HELPER [facility] pH UA 5.0 5.0 - 8.0 pH 10/08/2014 5:12 PM [employer] [facility] Protein UA 4+(A) Negative 10/08/2014 5:12 PM [employer] [facility] Blood UA 3+(A) Negative 10/08/2014 5:12 PM [employer] [facility] Leukocyte UA Negative Negative 10/08/2014 5:12 PM [employer] [facility] Nitrite UA Negative Negative 10/08/2014 5:12 PM [employer] [facility] Glucose UA 1+(A) Negative 10/08/2014 5:12 PM [employer] [facility] Ketone UA Trace(A) Negative 10/08/2014 5:12 PM [employer] [facility] Bilirubin UA 1+(A) Negative 10/08/2014 5:12 PM [employer] [facility] Urobilinogen UA 0.2 0.1 - 1.0 EU/dL 10/08/2014 5:12 PM VARNISH MAKER HELPER [facility] Urine Microscopy Urine microscopy to follow 10/08/2014 5:12 PM VARNISH MAKER HELPER [facility] Reflex Status Culture to follow 10/08/2014 5:12 PM VARNISH MAKER HELPER [facility] Urine URINE SPECIMEN OBTAINED BY CLEAN CATCH PROCEDURE / Unknown 10/08/2014 4:50 PM VARNISH MAKER HELPER 10/08/2014 4:57 PM VARNISH MAKER HELPER Gama Escalona MD LAB - URINALYSIS ORD ERABLES Performing Organization Address City/[facility]/ZIP Co de Phone Number [facility] [id number] [place] [id number] * CULTURE URINE (10/08/2014 4:50 PM VARNISH MAKER HELPER) Pathologist [facility] Culture <10,000 CFU/mL normal skin/urogen ital prasad MARY 10/10/2014 6:55 AM VARNISH MAKER HELPER [facility] Urine URINE SPECIMEN OBTAINED BY CLEAN CATCH PROCEDURE / Unknown 10/08/2014 4:50 PM VARNISH MAKER HELPER 10/08/2014 4:57 PM VARNISH MAKER HELPER Cameron Martinez MD LAB - MICROBIOLOG Y ORDERABLES Performing Organization Address City/[facility]/ZIP Co de Phone Number [facility] [address] [place] [address], [facility] * ACETONE BLOOD QUALITATIVE (10/08/2014 4:39 PM VARNISH MAKER HELPER) Acetone Negative Negative 10/08/2014 4:53 PM VARNISH MAKER HELPER [facility] Blood BLOOD SPECIMEN / Unknown 10/08/2014 4:39 PM VARNISH MAKER HELPER 10/08/2014 4:43 PM VARNISH MAKER HELPER Marcy Lovelace PA-C LAB - CHEMISTRY O RDERABLES Performing Organization Address [facility]/ZIP Co de Phone Number [facility] [address] [place] [address] * LIPASE BLOOD (10/08/2014 3:45 PM VARNISH MAKER HELPER) Lipase 153 73 - 393 U/L 10/08/2014 4:01 PM VARNISH MAKER HELPER [facility] Blood BLOOD SPECIMEN / Unknown 10/08/2014 3:45 PM VARNISH MAKER HELPER 10/08/2014 3:47 PM VARNISH MAKER HELPER Gama Escalona MD LAB - CHEMISTRY ORDDonna KAMERONREBECCA Performing Organization Address [facility] de Phone Number [facility] [address] [place] [address] * LACTIC ACID BLOOD (10/08/2014 3:45 PM VARNISH MAKER HELPER) Lactic Acid 1.2 0.7 - 2.1 mmol/L 10/08/2014 4:07 PM VARNISH MAKER HELPER [facility] Blood BLOOD SPECIMEN / Unknown 10/08/2014 3:45 PM VARNISH MAKER HELPER 10/08/2014 3:47 PM VARNISH MAKER HELPER Gama Escalona MD LAB - CHEMISTRY ORDDonna HOLMAN Performing Organization Address [facility] de Phone Number [facility] [address] [place] [address] * CXR - PA & LATERAL (10/08/2014 3:08 PM VARNISH MAKER HELPER) Anatomical Region Laterality Modality Chest Radiographic Althea ging 10/08/2014 3:12 PM VARNISH MAKER HELPER Impressions 10/08/2014 3:12 PM VARNISH MAKER HELPER No acute disease. Narrative 10/08/2014 3:12 PM VARNISH MAKER HELPER Chest Two Views History: Fever. Comparison: None. [...] VIRUS PANEL BY PCR (10/08/2014 1:54 PM VARNISH MAKER HELPER) Pathologist [facility] Adenovirus PCR Not detected Not detected, Invalid, Indeterminate 10/09/2014 2:25 AM [facility] Human Metapneumovirus PCR Detected(A ) Not detected, Invalid, Indeterminate 10/09/2014 2:25 AM [facility] Human Rhinovirus/Entero virus PCR Not detected Not detected, Invalid, Indeterminate 10/09/2014 2:25 AM [facility] Influenza A Non Subtyped PCR Not detected Not detected, Invalid, Indeterminate 10/09/2014 2:25 AM [facility] Influenza A H1 PCR Not detected Not detected, Invalid, Indeterminate 10/09/2014 2:25 AM [facility] Influenza A H3 PCR Not detected Not detected, Invalid, Indeterminate 10/09/2014 2:25 AM [facility] Influenza A H1 2009 PCR Not detected Not detected, Invalid, Indeterminate 10/09/2014 2:25 AM [facility] Influenza B PCR Not detected Not detected, Invalid, Indeterminate 10/09/2014 2:25 AM [facility] Mycoplasma pneumoniae PCR Not detected Not detected, Invalid, Indeterminate 10/09/2014 2:25 AM [facility] Parainfluenza Virus 1 PCR Not detected Not detected, Invalid, Indeterminate 10/09/2014 2:25 AM [facility] Parainfluenza Virus 2 PCR Not detected Not detected, Invalid, Indeterminate 10/09/2014 2:25 AM [facility] Parainfluenza Virus 3 PCR Not detected Not detected, Invalid, Indeterminate 10/09/2014 2:25 AM [facility] Parainfluenza Virus 4 PCR Not detected Not detected, Invalid, Indeterminate 10/09/2014 2:25 AM [facility] Respiratory Syncytial Virus PCR Not detected Not detected, Invalid, Indeterminate 10/09/2014 2:25 AM [facility] Bordetella pertussis PCR Not detected Not detected, Invalid 10/09/2014 2:25 AM [facility] Microbiology NASOPHARYNGEAL SWAB / Unknown 10/08/2014 1:54 PM 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 Read back and acknowledged results.(dmt) Marcy Lovelace PA-C LAB - MICROBIOLOG Y ORDERABLES Performing Organization Address City/[facility] Co de Phone Number [facility] [address] [place] [address], [facility] * INFLUENZA A+B ANTIGEN RAPID (10/08/2014 1:54 PM VARNISH MAKER HELPER) Influenza A Antigen Negative Negative 10/08/2014 2:17 PM VARNISH MAKER HELPER [facility] Influenza B Antigen Negative Negative 10/08/2014 2:17 PM VARNISH MAKER HELPER [facility] Microbiology NASOPHARYNGEAL SWAB / Unknown 10/08/2014 1:54 PM VARNISH MAKER HELPER 10/08/2014 1:57 PM VARNISH MAKER HELPER Narrative [facility] - 10/08/2014 2:17 PM VARNISH MAKER HELPER The sensitivity of rapid tests for influenza [...] - MICROBIOLOGY O RDERABLES Performing Organization Address City/[facility] Co de Phone Number [facility] [address] [place] [address] Care Teams Daycare Teacher Relationship Specialty Start Date End Date Mya Gross MD [address] [phone] PCP - General 01/21/22 Keli Daley, RN Roll Line Operator 10/09/14
--- OUTSIDE RECORDS SUMMARY | 2024-10-11 08:07 | XMS_ITS | Referral Summary ---
Author Organization [facility] Address [address] [facility] [place] [address] Care Team Providers Care Systems Requirements Planner Name Role Phone Keli Daley RN Unavailable [phone] Mya Gross MD Primary Care Provider [phone] Source Comments [facility],non-owned Affiliates and Associated Physician Practices is amultiple site organization consisting of ambulatory clinics and hospital sitesin [place] and [place]. This disclosure is being madepursuant to the Care Everywhere program and may not contain all information available regarding this patient. Last updated 18.[facility] Allergies No known active allergies Medications * [...] meds at dx. Never on insulin. No bellperson. Hypertension 08/09/2014 Resolved Problems Problem Noted Date [...] HEPATITIS C ANTIBODY Routine 07/09/2022 11:06 AM HL7 DEVELOPER Proteinuria, unspecified type Type 2 diabetes mellitus with hyperosmolarity without coma, without long-term current use of insulin (HCC) HEMOGLOBIN A1C Routine 07/09/2022 11:06 AM HL7 DEVELOPER Proteinuria, unspecified type Type 2 diabetes mellitus with hyperosmolarity without coma, without long-term current use of insulin (HCC) HIV-1 HIV-2 ANTIBODY + HIV P24 AG PANEL Routine 07/09/2022 11:06 AM HL7 DEVELOPER Type 2 diabetes mellitus with hyperosmolarity without coma, without long-term current use of insulin (HCC) Proteinuria, unspecified type from Last 3 Months or Most Recently Relevant to Health Maintenance Results * (ABNORMAL) COMPREHENSIVE METABOLIC PANEL (03/19/2023 1:05 PM CDT) BUN 55(H) 7 - 26 mg/dL 03/19/2023 1:44 PM [facility] Creatinine 7.58(H) 0.71 - 1.16 mg/dL 03/19/2023 1:44 PM [facility] Sodium 138 136 - 145 mmol/L 03/19/2023 1:44 PM [facility] Potassium 4.0 3.5 - 4.5 mmol/L 03/19/2023 1:44 PM [facility] Chloride 103 98 - 107 mmol/L 03/19/2023 1:44 PM [facility] CO2 22 22 - 29 mmol/L 03/19/2023 1:44 PM [facility] Glucose 244(H) 70 - 115 mg/dL 03/19/2023 1:44 PM [facility] Calcium 8.8 8.4 - 10.2 mg/dL 03/19/2023 1:44 PM [facility] Protein Total 8.1 6.0 - 8.3 g/dL 03/19/2023 1:44 PM [facility] Albumin 3.0(L) 3.4 - 5.0 g/dL 03/19/2023 [...] mL/min/1.7 3 m2 03/19/2023 1:44 PM CDT [facility] Blood BLOOD SPECIMEN / Unknown Venipuncture / Unknown 03/19/2023 1:05 PM CDT 03/19/2023 1:14 PM CDT Lisa Cat Yu ONCOLOGY SOCIAL WORKER-DRILL BIT SHARPENER LAB - CHEMIS TRY ORDERABLES Performing Organization Address City/[facility]/ZIP Co de Phone Number [address] [address], [facility] [phone] * HIV-1 HIV-2 ANTIBODY + HIV P24 AG PANEL (07/09/2022 11:06 AM HL7 DEVELOPER) HIV Antigen/Antibod y 1 & 2 Non-reacti ve Non-react amaury 07/09/2022 12:51 PM [facility] Comment:No Laboratory eviden ce of HIV infection. Blood BLOOD SPECIMEN / Unknown Lab Venipuncture / Unknown 07/09/2022 11:06 AM HL7 DEVELOPER 07/09/2022 11:59 AM HL7 DEVELOPER Chela Lanier MD LAB - CHEMISTRY ORDE RABLES Performing Organization Address City/[facility]/ZIP Co de Phone Number [address] [address], [facility] [phone] * (ABNORMAL) HEMOGLOBIN A1C (07/09/2022 11:06 AM HL7 DEVELOPER) Hemoglobin A1c 6.6(H) <=5.6 % 07/09/2022 2:34 PM [facility] Estimated Average Glucose 143 mg/dL 07/09/2022 2:34 PM [facility] Comment: HbA1c Interpretation: Normal : < 5.7% Pre-diabetes: 5.7-6.4% Diabetes: Equal to or greater than 6.5% Test results diagnostic of diabetes should be repeated for confirmation. Treatment target values recommended by ADA and other clinical organizations should be used to evaluate metabolic control in patients. Reference: [place] Diabetes Association, Standards of Care in Diabetes -2020 In patients 70 years and older consider HbA1c target range of 7.0-7.5% (Reference: Juancho Wilkerson et al. JAMDA. 2012) The Sebia assay for the measurement of HbA1c is a National Glycohemoglobin Standardization Program (NGSP) certified method. Blood BLOOD SPECIMEN / Unknown Lab Venipuncture / Unknown 07/09/2022 11:06 AM HL7 DEVELOPER 07/09/2022 12:04 PM HL7 DEVELOPER Chela Lanier MD LAB - CHEMISTRY MICHAELA HOLMAN [facility] [address] [place] [address], [facility] [phone] * HEPATITIS C ANTIBODY (07/09/2022 11:06 AM HL7 DEVELOPER) Hepatitis C Antibody Non-react amaury Non-reac tive 07/09/2022 12:51 PM HL7 DEVELOPER [facility] Comment:Hepatitis C Antibody screen indicates no serologic evidence of past or current infection with Hepatitis C Virus. Patients with unexplained liver disease who are immunocompromised or suspected of having acute Hepatitis C infection may benefit from Nucleic Acid Test (NICO) for Hepatitis C Viral RNA to confirm Hepatitis C status. Blood BLOOD SPECIMEN / Unknown Lab Venipuncture / Unknown 07/09/2022 11:06 AM HL7 DEVELOPER 07/09/2022 11:59 AM HL7 DEVELOPER Chela Lnaier MD LAB - CHEMISTRY MICHAELA HOLMAN [address] [address], [facility] [phone] from Last 3 Months or Most Recently Relevant to Health Maintenance Advance Directives * Full Code (Latest Code Status on File) Date Activated Date Inactivated Comments 10/08/2014 8:15 PM 10/10/2014 4:46 PM Care Teams Systems Requirements Planner Relationship Specialty Start Date End Date Mya Gross MD [address] [phone] PCP - General 01/21/22 Keli Daley, RN Book Jogger 10/09/14
[2024-10-11] MEDS: HYDROmorphone HCL INJ (*CRX) 1 MG/ML SYR 0.5 MG IV PUSH ×4 (08:26→20:43)
[2024-10-11 08:49] LABS: Erythrocyte Sedimentation Rate 134 mm/hr (0-20)
[2024-10-11 09:09] LABS: CRP 28.2 mg/dL (<1.0)
[2024-10-11] MEDS: CEFEPIME 1 GM/NS 50 ML 1 GM/50 ML BAG IVPB (09:11)
[2024-10-11 09:36] LABS: Influenza A QL RT-PCR Negative (Negative); Influenza B QL RT-PCR Negative (Negative); RSV RNA, RT-PCR Negative (Negative); SARS-CoV-2 RNA PCR Negative (Negative)
[2024-10-11] MEDS: HYDROmorphone HCL INJ (*CRX) 1 MG/ML SYR IV PUSH (10:17)
--- NOTE | 2024-10-11 13:15 | ADMGEN ---
This patient, Carlos A Younger, was admitted to [facility] Surg Room 327-01. Patient/family oriented to hospital policies and general routines including ID bracelet, bed and alarms, visiting hours, pain management, procedures, bathroom and other care routines, personal items, smoking policy, room service/diet, and visiting hours. Information on how to activate the Rapid Response Team has been discussed. Patient/Family are encouraged to report perceived risks to care and to ask questions if they do not understand what they are told or what they should do. Report from Lisa
--- NOTE | 2024-10-11 13:22 | P.CONNP_ITS ---
Assessment and Plan Assessment and plan (1) End stage renal disease: Code(s): N18.6 - End stage renal disease Status: Chronic Assessment and Plan: * see #3 * may need temporary HD if unable to resume CCPD * resume CCPD when able * follow electrolytes, volume status, and clearance (2) SBP (spontaneous bacterial peritonitis): Code(s): K65.2 - Spontaneous bacterial peritonitis Status: Acute Assessment and Plan: * presumed etiology of admission symptoms * as suggested by history and abdominal pain * abdominal pain similar to previous bouts of peritonitis * elevated WBC noted * patient reports PD fluid looked cloudy and milky * lipase and LFTs normal * results of CT of A/P noted * unable to obtain PD fluid sample for testing to verify this (see #3) * unable to give intraperitoneal antibiotics as well (see #3) * follow blood cultures * pain control * follow clinical exam (3) Obstruction of peritoneal dialysis catheter: Code(s): T85.691A - Other mechanical complication of intraperitoneal dialysis catheter, initial encounter Status: Acute Assessment and Plan: * possible inflammation and fibrin formation from peritonitis obstructing PD catheter * however, cannot discount an anatomical issue (although no mention on admission CT scan) * unable to drain or infuse fluid via PD catheter per dialysis nursing * attempts at power flushing PD catheter met with resistance and some abdominal discomfort * ensure no issues with constipation (on bowel regimen) * will continue to troubleshoot this issue * however, discussed with patient, if unable to go peritoneal dialysis, he may require temporary hemodialysis (4) Hypertension: Qualifiers: Hypertension type: primary hypertension Qualified Code(s): I10 - Essential (primary) hypertension Code(s): I10 - Essential (primary) hypertension Status: Chronic Assessment and Plan: * running high when seen * however, suspect pain maybe playing a role * resume home BP medications...listed outpatient BP medications are incorrect: * home BP medications are nifedipine ER 60mg qday, lisinopril 40mg qday, Toprol XL 100mg qday, and lasix 80mg qday * would slowly resume home medications as tolerated * follow trend of hemodynamics (5) Anemia: Qualifiers: Anemia type: iron deficiency Iron deficiency anemia type: unspecified iron deficiency Qualified Code(s): D50.9 - Iron deficiency anemia, unspecified Code(s): D64.9 - Anemia, unspecified Status: Chronic Assessment and Plan: * due to ESRD * H/H at goal/in ragge by recent check * start Epogen if Hgb goes to 10 or less * follow trend of H/H (6) Diabetes: Qualifiers: Chronic kidney disease stage: stage 5, not on chronic dialysis Diabetes mellitus complication detail: with chronic kidney disease Diabetes mellitus complication status: with kidney complications Diabetes mellitus crop ranch hand insulin use: without crop ranch hand use Diabetes mellitus type: type 2 Qualified Code(s): E11.22 - Type 2 diabetes mellitus with diabetic chronic kidney disease; N18.5 - Chronic kidney disease, stage 5 Code(s): E11.9 - Type 2 diabetes mellitus without complications Status: Chronic Assessment and Plan: * follow accu-checks * glycemic control per hospitalist I will continue to follow the patient with you while he remains hospitalized and make further recommendations as deemed necessary. Thank you for allowing me to participate in the care of this patient. L History of Present Illness Reason for Consult Consult date: 10/11/24 Reason for consult: end stage renal disease Chief Complaint Chief complaint: Abdominal pain, leukocytosis, spontaneous- History of Present Illness Narrative: The patient is a 43-year-old male with a past medical history as outlined below who presented to [facility] Emergency Room with complaints of abdominal pain. The patient states that the abdominal taking started about 3 - 4 days ago and has progressively worsened. He does not report any vomiting but does have some on and off issues with nausea. All during his last attempted peritoneal dialysis treatment, he had significant difficulty infusing the peritoneal dialysis fluid do the severity of his pain. More concerning is the fact that in an attempt to drain the fluid, this also caused pain as well. Do the severity of the pain, he did not do any peritoneal dialysis treatments for last couple of days. He reports no fevers, chills, diarrhea, lightheadedness, chest pain, shortness of breath, or palpitations. Given the severity of his abdominal pain as well as the fact that has been progressively getting worse, he presented to the emergency room for further assessment. Workup and evaluation emergency room demonstrated the patient be hemodynamically stable and in no acute distress other than his mild abdominal discomfort. Routine blood test demonstrated labs consistent with his known history of end- stage renal disease without any critical electrolyte abnormalities but his CBC was notable for a an elevated white blood cell count of 24.9. On further questioning, he reports that his peritoneal dialysis fluid has been somewhat cloudy and milky in appearance and that his abdominal pain seems to be somewhat similar to his previous bouts of peritonitis. Attempts were made to obtain a peritoneal dialysis fluid sample but no fluid was able be drained from his abdomen. A CT scan of the abdomen pelvis was done which demonstrated no other acute pathology other than retained dialysate fluid in his peritoneum. Due to concerns for bacterial peritonitis given his history and clinical symptoms, appropriate cultures were obtained and he was empirically started on IV antibiotics. He was subsequently admitted to hospital for further evaluation and therapy. Since his admission to the hospital, the dialysis nurse has made multiple attempts to obtain a peritoneal dialysate fluid sample but has been unsuccessful. It would seem that whatever PD fluid he has is abdomen is not draining and more concerning is the fact that attempts at infusing/instilling fluid in his abdomen have been met with resistance . Multiple attempts at power flushing his PD catheter have also been unsuccessful and have just lead to further abdominal discomfort by the patient. Renal consultation was requested due to his end-stage renal disease on peritoneal dialysis. The patient normally follows with Dr. Placido Aquino for management of his end-stage renal disease and peritoneal dialysis through [facility]. From a dialysis perspective, his major issues/problems are that of compliance with his peritoneal dialysis treatments as he has been known to skip multiple peritoneal dialysis treatments during the week. his monthly labs with regard to his dialysis treatments are usually reasonable with the exception of his phosphorus sometimes running a bit on the high side. I am not entirely sure when his last peritoneal dialysis treatment was given all the issues and problems he has been having with abdominal pain and difficulty infusing peritoneal dialysis fluid as mentioned above. As already noted, his PD catheter appears to be obstructive as the dialysis nursing staff were unable to drain or infuse any fluid into/out of his abdomen. The suspicion is that the inflammatory code enforcement inspector is a and abundance of fibrin that her probably present with his suspected peritonitis are causing the obstruction of his PD catheter. Currently, at the time my evaluation, he does not appear to be in any acute distress. Review of Systems 2 Review of Systems: As per HPI. [facility] Past Medical History Medical History Hyperphosphatemia associated with renal failure Non-compliance Renal failure Diabetes Hypertension Surgical History Surgical History No pertinent past surgical history Family History Family History Mother Diabetes mellitus Hypertension Grandparent Diabetes mellitus Hypertension Social History Social History Smoking status: Never smoker Second hand tobacco smoke exposure: No Alcohol intake: never Substance use: current Substance use type: marijuana Last use: 10/11/24 Do You Feel Safe in your Home?: Yes Lack of Transportation: No Lack of Food: Never True Current Housing: I Have Housing Concerned About Future Housing: No Difficulty Paying Gas/Electric Bills: No Difficulty Paying for Meds: No Currently Unemployed: No Education: Don't Know Difficulty w/ Childcare or Family Care: No Spiritual care concerns: No Meds Home Medications and Allergies Home Medications ?Medication ?Instructions ?Recorded ?Confirmed ?Type calcitriol 0.25 mcg capsule 0.25 mcg PO DAILY 07/21/22 10/11/24 History metoprolol succinate 50 mg PO DAILY 07/22/22 10/11/24 History escitalopram oxalate 20 mg tablet 20 mg PO DAILY #90 tabs 05/16/24 10/11/24 Rx (Lexapro) bupropion HCl 150 mg 24 hr tablet, 150 mg PO QAM #90 tabs 08/07/24 10/11/24 Rx extended release (Wellbutrin XL) amlodipine 10 mg tablet 10 mg PO DAILY 10/11/24 10/11/24 History Allergies Allergy/AdvReac Type Severity Reaction Status Date / Time No Known Allergies Allergy Verified 10/11/24 13:25 Vital Signs Vital Signs Temp Pulse Resp BP Pulse Ox O2 Del Method 10/11/24 13:12 97.8 F 102 H 18 186/108 H 95 10/11/24 12:00 110 H 35 H 191/103 H 96 10/11/24 11:30 110 H 35 H 189/106 H 96 10/11/24 11:00 114 H 34 H 193/109 H 95 10/11/24 10:30 112 H 22 H 193/109 H 95 10/11/24 10:19 111 H 29 H 188/105 H 97 10/11/24 09:30 108 H 30 H 181/102 H 96 10/11/24 09:14 108 H 29 H 182/106 H 96 10/11/24 08:24 98.6 F 102 H 22 H 182/104 H 97 10/11/24 07:30 103 H 29 H 185/103 H 97 10/11/24 07:00 102 H 25 H 175/108 H 99 10/11/24 06:45 104 H 30 H 174/105 H 98 10/11/24 06:44 103 H 20 171/108 H 98 10/11/24 04:59 97.0 F L 109 H 20 156/97 H 97 Room Air Exam 2 Narrative: GENERAL APPEARANCE: well developed well nourished male in no acute distress HEENT: normocephalic, atraumatic, normal conjunctiva and sclera, nares patient NECK: no lymphadenopathy, thyromegaly, or JVD MOUTH: normal lips, teeth, and gums CARDIOVASCULAR: RRR, normal S1 and S2, no rub RESPIRATORY: clear to auscultation bilaterally ABDOMEN: soft +tenderness to palpation, positive bowel sounds present EXTREMITIES: no evidence of cyanosis, clubbing, or edema NEUROLOGICAL: alert and oriented x 3; CN II - XII intact bilaterally; no focal deficits noted Results Lab Results 10/12/24 05:33 10/12/24 05:33 Lab results: Most recent lab results Calcium 8.8 mg/dL (8.4-10.2) 10/11/24 06:52
[2024-10-11] MEDS: LACTULOSE 20 GM/30 ML UDC PO (14:37)
[2024-10-11 14:56] LABS: MRSA (PCR) NOT DETECTED (NOT DETECTE)
[2024-10-11 15:07] LABS: Add Urine Microscopic? YES; Appearance Urine Clear (Clear); Bacteria Urine None Seen /hpf; Bilirubin Urine Negative (Negative); Blood Urine 2+ (Negative); Color Urine Yellow (Yellow); Glucose Urine UA 1+ mg/dL (Negative); Ketones Urine Negative (Negative); Leukocyte Esterase Ur 1+ LEU/UL (Negative); Need Manual Microscopic Reviewed; Nitrate Urine Negative (Negative); Non Pathogenic Casts 0-2; Protein Urine 3+ mg/dL (Negative); RBC Urine 21-50 /hpf (0-2); Specific Grav Ur 1.016 (1.001-1.035); Squamous Epithelial Cell Urine None Seen /hpf (Few); Urobilinogen Urine 0.2 mg/dL (<2.0); WBC Urine 21-50 /hpf (0-3); pH Urine 5.5 (5.0-9.0)
[2024-10-11] MEDS: ONDANSETRON INJ 4 MG/2 ML VIAL IV PUSH ×2 (16:32→20:44)
--- NOTE | 2024-10-11 16:49 | PM.IMHP ---
H&P: HPI History of Present Illness Date/Time: 10/11/24 16:49 Chief Complaint: abdominal pain. Narrative: ER-HPI narrative: [age] old male with history of peritoneal dialysis presents emergency department for evaluation for worsening abdominal pain. Patient does complain of lower abdominal pain that started approximately 3 days ago. Patient reports that is primarily L lower abdominal pain. Patient states he was attempting to do a 3 L per to dialysis fell and could only make it to over a L and had to stop the feeling. Patient reports last night he had similar symptoms and was only able to instill 500 mL. Patient denies any associated nausea or vomiting. Patient's primary complaint is lower abdominal pain. patient with history of peritoneal dialysis presented with abdominal pain, and elevated white counts suspicious for SBP, ER, dialysis biomed technician were not not able to remove peritoneal fluids for culture, plan was to transfer patient to a tertiary care however speaking with Dr. Gomez, it was decided to monitor overnight and try again in the morning to collect sample. patient is being treated with Cefepime. Urine and blood cultures have collected will follow-up. Review of Systems Review of Systems: As per HPI. [facility] Past Medical History Medical History Hyperphosphatemia associated with renal failure Non-compliance Renal failure Diabetes Hypertension Surgical History Surgical History No pertinent past surgical history Family History Family History Mother Diabetes mellitus Hypertension Grandparent Diabetes mellitus Hypertension Social History Social History Smoking status: Never smoker Second hand tobacco smoke exposure: No Alcohol intake: never Substance use: current Substance use type: marijuana Last use: 10/11/24 Do You Feel Safe in your Home?: Yes Lack of Transportation: No Lack of Food: Never True Current Housing: I Have Housing Concerned About Future Housing: No Difficulty Paying Gas/Electric Bills: No Difficulty Paying for Meds: No Currently Unemployed: No Education: Don't Know Difficulty w/ Childcare or Family Care: No Spiritual care concerns: No Meds Home Medications and Allergies Home Medications ?Medication ?Instructions ?Recorded ?Confirmed ?Type calcitriol 0.25 mcg capsule 0.25 mcg PO DAILY 07/21/22 10/11/24 History metoprolol succinate 50 mg PO DAILY 07/22/22 10/11/24 History escitalopram oxalate 20 mg tablet 20 mg PO DAILY #90 tabs 05/16/24 10/11/24 Rx (Lexapro) bupropion HCl 150 mg 24 hr tablet, 150 mg PO QAM #90 tabs 08/07/24 10/11/24 Rx extended release (Wellbutrin XL) amlodipine 10 mg tablet 10 mg PO DAILY 10/11/24 10/11/24 History Allergies Allergy/AdvReac Type Severity Reaction Status Date / Time No Known Allergies Allergy Verified 10/11/24 13:25 Vital Signs Vital Signs - 24 hr 10/11/24 04:59 10/11/24 06:44 10/11/24 06:45 Temperature 36.1 C L Pulse Rate 109 H 103 H 104 H Respiratory Rate 20 20 30 H Blood Pressure 156/97 H 171/108 H 174/105 H Pulse Oximetry 97 98 98 Oxygen Delivery Room Air 10/11/24 07:00 10/11/24 07:30 10/11/24 08:24 Temperature 37.0 C Pulse Rate 102 H 103 H 102 H Respiratory Rate 25 H 29 H 22 H Blood Pressure 175/108 H 185/103 H 182/104 H Pulse Oximetry 99 97 97 Oxygen Delivery 10/11/24 09:14 10/11/24 09:30 10/11/24 10:19 Temperature Pulse Rate 108 H 108 H 111 H Respiratory Rate 29 H 30 H 29 H Blood Pressure 182/106 H 181/102 H 188/105 H Pulse Oximetry 96 96 97 Oxygen Delivery 10/11/24 10:30 10/11/24 11:00 10/11/24 11:30 Temperature Pulse Rate 112 H 114 H 110 H Respiratory Rate 22 H 34 H 35 H Blood Pressure 193/109 H 193/109 H 189/106 H Pulse Oximetry 95 95 96 Oxygen Delivery 10/11/24 12:00 10/11/24 13:42 Temperature 36.6 C Pulse Rate 110 H 102 H Respiratory Rate 35 H 18 Blood Pressure 191/103 H 186/108 H Pulse Oximetry 96 95 Oxygen Delivery Exam Narrative: Patient is comfortable, NAD HEENT: eyes are clear and none icteric LUNGS:CTA HEART: RR S1S2 ABD: Obese BS+ diffusely tender Lower extremities: no edema SKIN: nonjaundiced Neuro: grossly intact. H&P: Results Labs Labs: Short CBC 10/11/24 Range/Units 06:52 WBC 24.9 H (4.5-10.0) K/mm3 Hgb 10.6 L (14.0-18.0) g/dL Hct 34.5 L (42.0-52.0) % Plt Count 421 H (150-375) k/mm3 BMP 10/11/24 06:52 Sodium 138 Potassium 4.9 Chloride 105 Carbon Dioxide 11 L BUN 137 H D Creatinine 12.69 H Glucose 179 H Calcium 8.8 Liver Function 10/11/24 Range/Units 06:52 Total Bilirubin 0.4 (0.2-1.3) mg/dL AST 24 (17-59) U/L ALT 19 (6-50) U/L Alkaline Phosphatase 96 (38-126) U/L Albumin 3.1 L (3.5-5.1) g/dL Urine 10/11/24 Range/Units 14:34 Urine Color Yellow (Yellow) Urine Appearance Clear (Clear) Urine pH 5.5 (5.0-9.0) Ur Specific [place] 1.016 (1.001-1.035) Urine Protein 3+ H (Negative) mg/dL Urine Glucose (UA) 1+ H (Negative) mg/dL Assessment and Plan Assessment and plan (1) SBP (spontaneous bacterial peritonitis): Code(s): K65.2 - Spontaneous bacterial peritonitis Status: Acute (2) Acute kidney failure: Code(s): N17.9 - Acute kidney failure, unspecified Status: Acute (3) End stage renal disease: Code(s): N18.6 - End stage renal disease Status: Chronic (4) Obstruction of peritoneal dialysis catheter: Code(s): T85.691A - Other mechanical complication of intraperitoneal dialysis catheter, initial encounter Status: Acute (5) Essential hypertension: Code(s): I10 - Essential (primary) hypertension Status: Acute Plan patient with history of peritoneal dialysis presented with abdominal pain, and elevated white counts suspicious for SBP, ER, dialysis biomed technician were not not able to remove peritoneal fluids for culture, plan was to transfer patient to a tertiary care however speaking with Dr. Gomez, it was decided to monitor overnight and try again in the morning to collect sample. patient is being treated with Cefepime. Urine and blood cultures have collected will follow-up.
[2024-10-11 17:07] LABS: Glucose Point of Care 113 mg/dl (65-105)
[2024-10-11 19:55] LABS: Glucose Point of Care 119 mg/dl (65-105)
[2024-10-12] MEDS: ONDANSETRON INJ 4 MG/2 ML VIAL IV PUSH ×6 (00:42→21:48)
[2024-10-12] MEDS: amLODIPine BESYLATE 10 MG TABLET PO ×2 (00:42→08:51)
[2024-10-12 00:43] VITALS: BP 183/114; PULSE 109; RESP 16; TEMP 37.1; O2SAT 96
[2024-10-12] MEDS: HYDROmorphone HCL INJ (*CRX) 1 MG/ML SYR 0.5 MG IV PUSH ×5 (00:43→21:48)
[2024-10-12 05:44] LABS: Hematocrit 35.6 % (42.0-52.0); Mean Corpuscular HGB Conc 30.9 g/dl (32-36); Mean Corpuscular Hemoglobin 27.2 pg (26-34); Mean Corpuscular Volume 87.9 fl (80-100); Mean Platelet Volume 8.3 fl (7.4-10.4); Platelet Count Result 399 k/mm3 (150-375); Red Blood Count 4.05 M/mm3 (4.6-6.20); Red Cell Distribution Width 16.7 % (11.5-14.5); White Blood Count 26.7 K/mm3 (4.5-10.0)
[2024-10-12 05:52] VITALS: BP 186/116; PULSE 108; RESP 16; TEMP 36.8; O2SAT 97
[2024-10-12 05:55] LABS: Albumin Level 2.9 g/dL (3.5-5.1); Anion Gap 23 mmol/L (4-12); Calcium 9.4 mg/dL (8.4-10.2); Carbon Dioxide 13 mmol/L (22-30); Chloride 102 mmol/L (98-107); Estimated CRCL calculation 6 ml/min; Estimated Glomerular Filt Rate 4; Glucose 123 mg/dL (65-110); Potassium 5.4 mmol/L (3.4-5.0); Sodium 138 mmol/L (137-145)
[2024-10-12 06:08] LABS: Blood Urea Nitrogen 146 mg/dL (9-20)
[2024-10-12 06:25] LABS: Hepatitis B Surface Antigen Negative (Negative)
[2024-10-12] MEDS: SODIUM ZIRCONIUM CYCLOSILICATE 10 GM POWD.PACK PO (06:39)
[2024-10-12 07:51] LABS: Hepatitis B Surface Anti Res Indeterminate
[2024-10-12] MEDS: CEFEPIME 1 GM/NS 50 ML 1 GM/50 ML BAG IVPB (08:50)
[2024-10-12] MEDS: SODIUM BICARBONATE TAB 650 MG TABLET 1300 MG PO ×2 (08:51→16:24)
[2024-10-12] MEDS: buPROPion HCL XL (24 HR) 150 MG TABCR PO (08:51)
[2024-10-12 08:52] VITALS: PULSE 116
[2024-10-12] MEDS: METOPROLOL SUCCINATE EXT REL 50 MG TABCR PO (08:52)
[2024-10-12] MEDS: calcitrioL 0.25 MCG CAPSULE PO (08:53)
[2024-10-12] MEDS: ESCITALOPRAM OXALATE 10 MG TABLET 20 MG PO (08:53)
[2024-10-12] MEDS: HYDROcodone/acetaminophen (*CRX) 5-325 MG TABLET 1 TAB PO (10:28)
--- NOTE | 2024-10-12 12:20 | P.PNNP_ITS ---
Progress Note: A&P Assessment and Plan (1) End stage renal disease: Code(s): N18.6 - End stage renal disease Status: Chronic Assessment and Plan: * see #3 * may need temporary HD if unable to resume CCPD * resume CCPD when able * follow electrolytes, volume status, and clearance * lokelma for mildly elevated K+ * sodium bicarbonate for metabolic acidosis * start binders given elevated phosphorus (2) SBP (spontaneous bacterial peritonitis): Code(s): K65.2 - Spontaneous bacterial peritonitis Status: Acute Assessment and Plan: * presumed etiology of admission symptoms * as suggested by history and abdominal pain * abdominal pain similar to previous bouts of peritonitis * elevated WBC noted * patient reports PD fluid looked cloudy and milky * lipase and LFTs normal * results of CT of A/P noted * unable to obtain PD fluid sample for testing to verify this (see #3) * unable to give intraperitoneal antibiotics as well (see #3) * follow blood cultures * pain control * follow clinical exam (3) Obstruction of peritoneal dialysis catheter: Code(s): T85.691A - Other mechanical complication of intraperitoneal dialysis catheter, initial encounter Status: Acute Assessment and Plan: * possible inflammation and fibrin formation from peritonitis obstructing PD catheter (?) * however, cannot discount an anatomical issue (although no mention on admission CT scan) * unable to drain or infuse fluid via PD catheter per dialysis nursing * attempts at power flushing PD catheter met with resistance and some abdominal discomfort * will attempt alteplase in PD catheter today and dwell overnight * making sure no issues with constipation (on bowel regimen) * will continue to troubleshoot this issue * if still unable to drain or infuse fluid via PD catheter by tomorrow, will proceed with temporary hemodialysis * consult placed to Surgery for temporary HD catheter placement tomorrow (10/13) on this assumption.... (4) Hypertension: Qualifiers: Hypertension type: primary hypertension Qualified Code(s): I10 - Essential (primary) hypertension Code(s): I10 - Essential (primary) hypertension Status: Chronic Assessment and Plan: * running high * however, suspect pain maybe playing a role * resume home BP medications...listed outpatient BP medications are incorrect: * home BP medications are nifedipine ER 60mg qday, lisinopril 40mg qday, Toprol XL 100mg qday, and lasix 80mg qday * would slowly resume home medications as tolerated * follow trend of hemodynamics (5) Anemia: Qualifiers: Anemia type: iron deficiency Iron deficiency anemia type: unspecified iron deficiency Qualified Code(s): D50.9 - Iron deficiency anemia, unspecified Code(s): D64.9 - Anemia, unspecified Status: Chronic Assessment and Plan: * due to ESRD * H/H at goal/in ragge by recent check * start Epogen if Hgb goes to 10 or less * follow trend of H/H (6) Diabetes: Qualifiers: Chronic kidney disease stage: stage 5, not on chronic dialysis Diabetes mellitus complication detail: with chronic kidney disease Diabetes mellitus complication status: with kidney complications Diabetes mellitus correction insulin use: without termite inspector 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 L Subjective Date/time seen: 10/12/24 12:20 Interval history: Follow-up for end stage renal disease on peritoneal dialysis. Unable to received peritoneal dialysis treatment overnight due to presumed obstruction of PD catheter which failed to resolve with several interventions yesterday; no acute distress noted at the time of my visit but has a bit more nausea since earlier this morning in association with abdominal discomfort; K+ mildly elevated and worsening acidosis noted by AM labs as well. Exam 2 Narrative: General: WD/WN male in NAD Heart: tachycardic, normal S1 and S2; no rub Lungs: clear to auscultation Abdomen: + tenderness to palpation; positive bowel sounds Extremities: no cyanosis or clubbing; no edema Skin: warm and dry Objective Data Vital Signs Vital Signs: Vital Signs Temp Pulse Resp BP Pulse Ox 10/12/24 08:52 116 H 10/12/24 05:52 98.3 F 108 H 16 186/116 H 97 10/12/24 00:43 98.7 F 109 H 16 183/114 H 96 10/11/24 22:34 98.5 F 110 H 18 187/112 H 97 10/11/24 19:35 98.2 F 109 H 18 173/103 H 96 Intake/Output Intake/Output: Intake & Output 10/09/24 10/10/24 10/11/24 10/12/24 23:59 23:59 23:59 23:59 Intake Total 1040 590 Output Total 400 Balance 640 590 Meds/Results Medications: Active Medications Generic Name Dose Route Start Last Admin Trade Name Freq PRN Reason Stop Dose Admin Hydrocodone Bitart/Acetaminophen 1 tab 10/12/24 10:24 10/12/24 10:28 Hydrocodone/Acetaminophen (*Crx) 5-325 Mg Tablet PO 1 tab Q4H PRN Administration Pain Rated 4-6 Amlodipine Besylate 10 mg 10/12/24 09:00 10/12/24 08:51 Amlodipine Besylate 10 Mg Tablet PO 10 mg DAILY DANA Administration Bupropion HCl 150 mg 10/12/24 09:00 10/12/24 08:51 Bupropion Hcl Xl (24 Hr) 150 Mg Tabcr PO 150 mg QAM DANA Administration Calcitriol 0.25 mcg 10/12/24 09:00 10/12/24 08:53 Calcitriol 0.25 Mcg Capsule PO 0.25 mcg DAILY DANA Administration Escitalopram Oxalate 20 mg 10/12/24 09:00 10/12/24 08:53 Escitalopram Oxalate 10 Mg Tablet PO 20 mg DAILY DANA Administration Hydromorphone HCl 0.5 mg 10/12/24 10:24 10/12/24 13:50 Hydromorphone Hcl Inj (*Crx) 1 Mg/Ml Syr IV PUSH 0.5 mg Q8HR PRN Administration Pain Rated 7-10 Cefepime HCl 1 gm in 50 mls @ 100 mls/hr 10/11/24 08:30 10/12/24 09:20 Maxipime 1 Gm/Ns 50 Ml IVPB Infused DAILY DANA Infusion Lactulose 20 gm 10/13/24 09:00 Lactulose 20 Gm/30 Ml Udc PO QAM DANA Metoprolol Succinate 50 mg 10/12/24 09:00 10/12/24 08:52 Metoprolol Succinate Ext Rel 50 Mg Tabcr PO 50 mg QAM DANA Administration Ondansetron HCl 4 mg 10/11/24 08:20 10/12/24 12:20 Ondansetron Inj 4 Mg/2 Ml Vial IV PUSH 4 mg Q4H PRN Administration Nausea Polyethylene Glycol 17 gm 10/12/24 17:00 Polyethylene Glycol 3350 17 Gm Powd.Pack PO BID DANA Sodium Bicarbonate 1,300 mg 10/12/24 09:00 10/12/24 08:51 Sodium Bicarbonate Tab 650 Mg Tablet PO 1,300 mg BID DANA Administration Radiology Results: ITS Impressions Abdomen/Pelvis CT 10/11/24 07:58 IMPRESSION: 1. Small pleural effusion. 2. Mild pelvic lymphadenopathy which may be reactive. 3. Large volume of ascites with peritoneal dialysis catheter noted. 4. Right inguinal hernia containing fat. Labs Labs: Laboratory Tests 10/12/24 05:33 10/12/24 05:33 Calcium 9.4 Phosphorus 16.0 H Magnesium 3.0 H Albumin 2.9 L Hep Bs Antigen Negative Hep Bs Antibody Indeterminate Microbiology 10/11/24 08:35 Blood Blood Culture - Preliminary 10/11/24 08:52 Blood Blood Culture - Preliminary
[2024-10-12 13:51] VITALS: BP 194/108; PULSE 101; RESP 18; TEMP 36.3; O2SAT 95
[2024-10-12 14:12] VITALS: BP 192/111
[2024-10-12] MEDS: ALTEPLASE 2 MG VIAL (CATHFLO) 4 MG INTRACATH (15:45)
[2024-10-12] MEDS: CALCIUM ACETATE 667 MG TABLET 1334 MG PO (16:24)
[2024-10-12] MEDS: polyethylene glycoL 3350 17 GM POWD.PACK PO (16:24)
--- NOTE | 2024-10-12 16:46 | P.PNIM_ITS ---
Progress Note: A&P Assessment and Plan (1) SBP (spontaneous bacterial peritonitis): Code(s): K65.2 - Spontaneous bacterial peritonitis Status: Acute (2) Acute kidney failure: Code(s): N17.9 - Acute kidney failure, unspecified Status: Acute (3) End stage renal disease: Code(s): N18.6 - End stage renal disease Status: Chronic (4) Obstruction of peritoneal dialysis catheter: Code(s): T85.691A - Other mechanical complication of intraperitoneal dialysis catheter, initial encounter Status: Acute (5) Essential hypertension: Code(s): I10 - Essential (primary) hypertension Status: Acute Plan patient with history of peritoneal dialysis presented with abdominal pain, and elevated white counts suspicious for SBP, ER, animal husbandry technician was not not able to remove peritoneal fluids for culture, plan was to transfer patient to a tertiary care however speaking with Dr. Gomez, it was decided to monitor overnight and try again in the morning to collect sample. Again today dialysis fluid sample was not able to aspirate, patient is being treated with Cefepime. Urine and blood cultures have collected will follow-up. Most likely patient will have hemodialysis and further recommendation to follow. Subjective Date/time seen: 10/12/24 16:46 Interval history: patient with history of peritoneal dialysis presented with abdominal pain, and elevated white counts suspicious for SBP, ER, animal husbandry technician was not not able to remove peritoneal fluids for culture, plan was to transfer patient to a tertiary care however speaking with Dr. Gomez, it was decided to monitor overnight and try again in the morning to collect sample. Again today dialysis fluid sample was not able to aspirate, patient is being treated with Cefepime. Urine and blood cultures have collected will follow-up. Most likely patient will have hemodialysis and further recommendation to follow. Exam Narrative: Patient is comfortable, NAD HEENT: eyes are clear and none icteric LUNGS:CTA HEART: RR S1S2 ABD: BS+, Soft and nontender Lower extremities: no edema SKIN: nonjaundiced Neuro: grossly intact. Objective Data Vital Signs Vital Signs: Vital Signs - 24 hr 10/11/24 19:35 10/11/24 22:34 10/12/24 00:43 Temperature 36.8 C 36.9 C 37.1 C Pulse Rate 109 H 110 H 109 H Respiratory Rate 18 18 16 Blood Pressure 173/103 H 187/112 H 183/114 H Pulse Oximetry 96 97 96 10/12/24 05:52 10/12/24 08:52 10/12/24 13:51 Temperature 36.8 C 36.3 C L Pulse Rate 108 H 116 H 101 H Respiratory Rate 16 18 Blood Pressure 186/116 H 194/108 H Pulse Oximetry 97 95 10/12/24 14:12 Temperature Pulse Rate Respiratory Rate Blood Pressure 192/111 H Pulse Oximetry Intake/Output Intake/Output: Intake & Output 10/09/24 10/10/24 10/11/24 10/12/24 23:59 23:59 23:59 23:59 Intake Total 1040 590 Output Total 400 Balance 640 590 Meds/Results Medications: Active Medications Generic Name Dose Route Start Last Admin Trade Name Freq PRN Reason Stop Dose Admin Hydrocodone Bitart/Acetaminophen 1 tab 10/12/24 10:24 10/12/24 10:28 Hydrocodone/Acetaminophen (*Crx) 5-325 Mg Tablet PO 1 tab Q4H PRN Administration Pain Rated 4-6 Amlodipine Besylate 10 mg 10/12/24 09:00 10/12/24 08:51 Amlodipine Besylate 10 Mg Tablet PO 10 mg DAILY DANA Administration Bupropion HCl 150 mg 10/12/24 09:00 10/12/24 08:51 Bupropion Hcl Xl (24 Hr) 150 Mg Tabcr PO 150 mg QAM DANA Administration Calcitriol 0.25 mcg 10/12/24 09:00 10/12/24 08:53 Calcitriol 0.25 Mcg Capsule PO 0.25 mcg DAILY DANA Administration Calcium Acetate 1,334 mg 10/12/24 17:00 10/12/24 16:24 Calcium Acetate 667 Mg Tablet PO 1,334 mg TIDWM DANA Administration Escitalopram Oxalate 20 mg 10/12/24 09:00 10/12/24 08:53 Escitalopram Oxalate 10 Mg Tablet PO 20 mg DAILY DANA Administration Hydromorphone HCl 0.5 mg 10/12/24 10:24 10/12/24 13:50 Hydromorphone Hcl Inj (*Crx) 1 Mg/Ml Syr IV PUSH 0.5 mg Q8HR PRN Administration Pain Rated 7-10 Cefepime HCl 1 gm in 50 mls @ 100 mls/hr 10/11/24 08:30 10/12/24 09:20 Maxipime 1 Gm/Ns 50 Ml IVPB Infused DAILY DANA Infusion Lactulose 20 gm 10/13/24 09:00 Lactulose 20 Gm/30 Ml Udc PO QAM DANA Metoprolol Succinate 50 mg 10/12/24 09:00 10/12/24 08:52 Metoprolol Succinate Ext Rel 50 Mg Tabcr PO 50 mg QAM DANA Administration Ondansetron HCl 4 mg 10/11/24 08:20 10/12/24 16:21 Ondansetron Inj 4 Mg/2 Ml Vial IV PUSH 4 mg Q4H PRN Administration Nausea Polyethylene Glycol 17 gm 10/12/24 17:00 10/12/24 16:24 Polyethylene Glycol 3350 17 Gm Powd.Pack PO 17 gm BID DANA Administration Sodium Bicarbonate 1,300 mg 10/12/24 09:00 10/12/24 16:24 Sodium Bicarbonate Tab 650 Mg Tablet PO 1,300 mg BID DANA Administration Radiology Results: ITS Impressions Abdomen/Pelvis CT 10/11/24 07:58 IMPRESSION: 1. Small pleural effusion. 2. Mild pelvic lymphadenopathy which may be reactive. 3. Large volume of ascites with peritoneal dialysis catheter noted. 4. Right inguinal hernia containing fat. Labs Labs: Laboratory Results - last 24 hr 10/11/24 10/11/24 10/12/24 17:03 19:35 05:33 WBC 26.7 H RBC 4.05 L Hgb 11.0 L Hct 35.6 L MCV 87.9 MCH 27.2 MCHC 30.9 L RDW 16.7 H Plt Count 399 H MPV 8.3 Sodium 138 Potassium 5.4 H Chloride 102 Carbon Dioxide 13 L Anion Gap 23 H BUN 146 H Creatinine 13.72 H Estim Creat Clear Calc 6 Estimated GFR 4 L Glucose 123 H POC Capillary Glucose 113 H 119 H Calcium 9.4 Phosphorus 16.0 H Magnesium 3.0 H Albumin 2.9 L Hep Bs Antigen Negative Hep Bs Antibody Indeterminate
[2024-10-12 19:53] VITALS: BP 173/104; PULSE 86; RESP 16; TEMP 36.6; O2SAT 95
[2024-10-13] VITALS (26 sets, daily range): BP systolic 93–171; BP diastolic 59–97; PULSE 61–110; RESP 14–22; TEMP 36.3–37.2; O2SAT 93–99
[2024-10-13] MEDS: HYDROmorphone HCL INJ (*CRX) 1 MG/ML SYR 0.5 MG IV PUSH ×3 (05:33→21:52)
[2024-10-13] MEDS: ONDANSETRON INJ 4 MG/2 ML VIAL IV PUSH ×2 (05:34→21:52)
[2024-10-13 06:39] LABS: Hematocrit 31.4 % (42.0-52.0); Hemoglobin 9.6 g/dL (14.0-18.0); Mean Corpuscular HGB Conc 30.6 g/dl (32-36); Mean Corpuscular Hemoglobin 27.7 pg (26-34); Mean Corpuscular Volume 90.5 fl (80-100); Mean Platelet Volume 8.8 fl (7.4-10.4); Platelet Count Result 399 k/mm3 (150-375); Red Blood Count 3.47 M/mm3 (4.6-6.20); Red Cell Distribution Width 16.9 % (11.5-14.5); White Blood Count 23.6 K/mm3 (4.5-10.0)
[2024-10-13 07:01] LABS: Albumin Level 2.6 g/dL (3.5-5.1); Anion Gap 27 mmol/L (4-12); Calcium 8.8 mg/dL (8.4-10.2); Carbon Dioxide 12 mmol/L (22-30); Chloride 99 mmol/L (98-107); Estimated CRCL calculation 6 ml/min; Estimated Glomerular Filt Rate 4; Glucose 90 mg/dL (65-110); Potassium 5.6 mmol/L (3.4-5.0); Sodium 138 mmol/L (137-145)
[2024-10-13 07:09] LABS: Blood Urea Nitrogen 155 mg/dL (9-20); Phosphorus 16.5 mg/dL (2.5-4.5)
[2024-10-13] MEDS: buPROPion HCL XL (24 HR) 150 MG TABCR PO (09:57)
[2024-10-13] MEDS: amLODIPine BESYLATE 10 MG TABLET PO (09:57)
[2024-10-13] MEDS: METOPROLOL SUCCINATE EXT REL 50 MG TABCR PO (09:57)
[2024-10-13] MEDS: ESCITALOPRAM OXALATE 10 MG TABLET 20 MG PO (09:57)
[2024-10-13] MEDS: CEFEPIME 1 GM/NS 50 ML 1 GM/50 ML BAG IVPB (09:58)
--- NOTE | 2024-10-13 12:59 | WPDHPUPDATE1 ---
History and Physical Update Update Date/Time: 10/13/24 12:59 History and Physical has been reviewed, including an updated exam of the patient. There are NO changes in the patient's condition. Risks, benefits, and alternatives have been discussed and questions answered. Patient agrees to proceed with procedure.
[2024-10-13 13:33] LABS: Glucose Point of Care 84 mg/dl (65-105)
--- NOTE | 2024-10-13 14:01 | P.PNAN_ITS ---
Anes - Initial Pre Proc Eval Procedure: Operation Date: 10/13/24 14:00 Proposed Procedures p Placement Tunneled Dialysis Catheter Under Fluoroscopy - Gurpreet Mishra MD Date/Time: 10/13/24 14:01 Surgeon: Mireya Middleton MD Pre Op Diagnosis: Abdominal pain, leukocytosis, spontaneous- Patient Data Age: 43 Gender: M Height: 1.75 m Weight: 86.5 kg Last Vital Signs Temp 97.3 F L 10/13/24 13:37 Pulse 85 10/13/24 13:37 Resp 14 10/13/24 13:37 BP 150/87 H 10/13/24 13:37 Pulse Ox 99 10/13/24 13:37 O2 Del Method Room Air 10/13/24 13:37 Allergies Allergy/AdvReac Type Severity Reaction Status Date / Time No Known Allergies Allergy Verified 10/13/24 13:36 Home Medications ?Medication ?Instructions ?Recorded ?Confirmed ?Type calcitriol 0.25 mcg capsule 0.25 mcg PO DAILY 07/21/22 10/11/24 History metoprolol succinate 50 mg PO DAILY 07/22/22 10/11/24 History escitalopram oxalate 20 mg tablet 20 mg PO DAILY #90 tabs 05/16/24 10/11/24 Rx (Lexapro) bupropion HCl 150 mg 24 hr tablet, 150 mg PO QAM #90 tabs 08/07/24 10/11/24 Rx extended release (Wellbutrin XL) amlodipine 10 mg tablet 10 mg PO DAILY 10/11/24 10/11/24 History Laboratory Tests 10/12/24 10/12/24 10/13/24 18:02 18:08 06:24 WBC 23.6 H K/mm3 (4.5-10.0) RBC 3.47 L M/mm3 (4.6-6.20) Hgb 9.6 L g/dL (14.0-18.0) Hct 31.4 L % (42.0-52.0) MCV 90.5 fl (80-100) MCH 27.7 pg (26-34) MCHC 30.6 L g/dl (32-36) RDW 16.9 H % (11.5-14.5) Plt Count 399 H k/mm3 (150-375) MPV 8.8 fl (7.4-10.4) Sodium 138 mmol/L (137-145) Potassium 5.6 H mmol/L (3.4-5.0) Chloride 99 mmol/L (98-107) Carbon Dioxide 12 L mmol/L (22-30) Anion Gap 27 H mmol/L (4-12) BUN 155 H mg/dL (9-20) Creatinine 13.71 H mg/dL (0.7-1.3) Estim Creat Clear Calc 6 ml/min Estimated GFR 4 L (59 - ) Glucose 90 mg/dL (65-110) POC Capillary Glucose Calcium 8.8 mg/dL (8.4-10.2) Phosphorus 16.5 H mg/dL (2.5-4.5) Magnesium 3.0 H mg/dL (1.6-2.3) Albumin 2.6 L g/dL (3.5-5.1) Hep B Core Total Ab Pending Blood Type A Positive Antibody Screen Negative 10/13/24 13:30 WBC RBC Hgb Hct MCV MCH MCHC RDW Plt Count MPV Sodium Potassium Chloride Carbon Dioxide Anion Gap BUN Creatinine Estim Creat Clear Calc Estimated GFR Glucose POC Capillary Glucose 84 mg/dl (65-105) Calcium Phosphorus Magnesium Albumin Hep B Core Total Ab Blood Type Antibody Screen Patient hx anesthesia problems: none Family hx anesthesia problems: none Results Review: All pre-operative results and documents have been reviewed as part of the pre- operative evaluation. [facility] Past Medical History Medical History Hyperphosphatemia associated with renal failure Non-compliance Renal failure Diabetes Hypertension Surgical History Surgical History No pertinent past surgical history Family History Family History Mother Diabetes mellitus Hypertension Grandparent Diabetes mellitus Hypertension Social History Social History Smoking status: Never smoker Second hand tobacco smoke exposure: No Alcohol intake: never Substance use: current Substance use type: marijuana Last use: 10/11/24 Do You Feel Safe in your Home?: Yes Lack of Transportation: No Lack of Food: Never True Current Housing: I Have Housing Concerned About Future Housing: No Difficulty Paying Gas/Electric Bills: No Difficulty Paying for Meds: No Currently Unemployed: No Education: Don't Know Difficulty w/ Childcare or Family Care: No Spiritual care concerns: No Anes - Eval Final PreProcedure Day of Procedure 10/13/24 14:01 Patient weight: overweight Lungs: normal air movement Airway: Mallampati scale class III and special considerations Neurological: alert and oriented Last oral intake: >/= 8 hours ASA classification: IV Emergent: no Anesthetic plan: proceed Anesthesia type and monitoring: general LMA and standard monitoring Results Review: All pre-operative results and documents have been reviewed as part of the pre- operative evaluation. Hx of uncontrolled DM, longstanding, on PD w nonfunctioning catheter, now for hemodialysis cath placement, pt reports last effective dialysis approx 4 days ago. Longstanding smoker of marijuana since 14 yo. Informed Consent: The patient's anesthetic plan and its attendant risks and benefits were discussed with the patient/family/POA. Questions were solicited and answers provided to the satisfaction of the patient/family/POA.
--- NOTE | 2024-10-13 14:13 | PM.CNGS ---
Assessment and Plan Assessment and plan (1) Renal failure: Code(s): N19 - Unspecified kidney failure Status: Chronic (2) SBP (spontaneous bacterial peritonitis): Code(s): K65.2 - Spontaneous bacterial peritonitis Status: Acute (3) Obstruction of peritoneal dialysis catheter: Code(s): T85.691A - Other mechanical complication of intraperitoneal dialysis catheter, initial encounter Status: Acute (4) Encounter for fitting and adjustment of vascular catheter: Code(s): Z45.2 - Encounter for adjustment and management of vascular access device Status: Acute Assessment and Plan: Plan to place tunneled central venous catheter using ultrasound and under fluoroscopy for hemodialysis as requested by Nephrology. History of Present Illness Consult details Consult date: 10/13/24 Reason for consult: abdominal pain Narrative: Patient with spontaneous bacterial peritonitis likely due to infected peritoneal dialysis graft. Nephrology has requested tunneled central venous catheter for dialysis [facility] Past Medical History Medical History Hyperphosphatemia associated with renal failure Non-compliance Renal failure Diabetes Hypertension Surgical History Surgical History No pertinent past surgical history Family History Family History Mother Diabetes mellitus Hypertension Grandparent Diabetes mellitus Hypertension Social History Social History Smoking status: Never smoker Second hand tobacco smoke exposure: No Alcohol intake: never Substance use: current Substance use type: marijuana Last use: 10/11/24 Do You Feel Safe in your Home?: Yes Lack of Transportation: No Lack of Food: Never True Current Housing: I Have Housing Concerned About Future Housing: No Difficulty Paying Gas/Electric Bills: No Difficulty Paying for Meds: No Currently Unemployed: No Education: Don't Know Difficulty w/ Childcare or Family Care: No Spiritual care concerns: No Meds Home Medications and Allergies Home Medications ?Medication ?Instructions ?Recorded ?Confirmed ?Type calcitriol 0.25 mcg capsule 0.25 mcg PO DAILY 07/21/22 10/11/24 History metoprolol succinate 50 mg PO DAILY 07/22/22 10/11/24 History escitalopram oxalate 20 mg tablet 20 mg PO DAILY #90 tabs 05/16/24 10/11/24 Rx (Lexapro) bupropion HCl 150 mg 24 hr tablet, 150 mg PO QAM #90 tabs 08/07/24 10/11/24 Rx extended release (Wellbutrin XL) amlodipine 10 mg tablet 10 mg PO DAILY 10/11/24 10/11/24 History Allergies Allergy/AdvReac Type Severity Reaction Status Date / Time No Known Allergies Allergy Verified 10/13/24 13:36 Vital Signs Vital Signs - 24 hr 10/12/24 19:53 10/13/24 00:40 10/13/24 00:40 Temperature 36.6 C Pulse Rate 86 78 Respiratory Rate 16 Blood Pressure 173/104 H Pulse Oximetry 95 95 95 Oxygen Delivery Room Air 10/13/24 04:56 10/13/24 09:57 10/13/24 13:37 Temperature 36.3 C L 36.3 C L Pulse Rate 74 110 H 85 Respiratory Rate 20 14 Blood Pressure 171/97 H 150/87 H Pulse Oximetry 95 99 Oxygen Delivery Room Air Results Labs 10/13/24 06:24 10/13/24 06:24 Labs: Abnormal lab results 10/13/24 Range/Units 06:24 WBC 23.6 H (4.5-10.0) K/mm3 RBC 3.47 L (4.6-6.20) M/mm3 Hgb 9.6 L (14.0-18.0) g/dL Hct 31.4 L (42.0-52.0) % MCHC 30.6 L (32-36) g/dl RDW 16.9 H (11.5-14.5) % Plt Count 399 H (150-375) k/mm3 Potassium 5.6 H (3.4-5.0) mmol/L Carbon Dioxide 12 L (22-30) mmol/L Anion Gap 27 H (4-12) mmol/L BUN 155 H (9-20) mg/dL Creatinine 13.71 H (0.7-1.3) mg/dL Estimated GFR 4 L (59 - ) Phosphorus 16.5 H (2.5-4.5) mg/dL Magnesium 3.0 H (1.6-2.3) mg/dL Albumin 2.6 L (3.5-5.1) g/dL Diabetes panel 03/07/25 Range/Units 06:24 Sodium 138 (137-145) mmol/L Potassium 5.6 H (3.4-5.0) mmol/L Chloride 99 (98-107) mmol/L Carbon Dioxide 12 L (22-30) mmol/L BUN 155 H (9-20) mg/dL Creatinine 13.71 H (0.7-1.3) mg/dL Glucose 90 (65-110) mg/dL Calcium 8.8 (8.4-10.2) mg/dL Albumin 2.6 L (3.5-5.1) g/dL Calcium panel 10/13/24 Range/Units 06:24 Calcium 8.8 (8.4-10.2) mg/dL Phosphorus 16.5 H (2.5-4.5) mg/dL Albumin 2.6 L (3.5-5.1) g/dL Pituitary panel 10/13/24 Range/Units 06:24 Sodium 138 (137-145) mmol/L Potassium 5.6 H (3.4-5.0) mmol/L Chloride 99 (98-107) mmol/L Carbon Dioxide 12 L (22-30) mmol/L BUN 155 H (9-20) mg/dL Creatinine 13.71 H (0.7-1.3) mg/dL Glucose 90 (65-110) mg/dL Calcium 8.8 (8.4-10.2) mg/dL Adrenal panel 10/13/24 Range/Units 06:24 Sodium 138 (137-145) mmol/L Potassium 5.6 H (3.4-5.0) mmol/L Chloride 99 (98-107) mmol/L Carbon Dioxide 12 L (22-30) mmol/L BUN 155 H (9-20) mg/dL Creatinine 13.71 H (0.7-1.3) mg/dL Glucose 90 (65-110) mg/dL Calcium 8.8 (8.4-10.2) mg/dL Albumin 2.6 L (3.5-5.1) g/dL All other labs normal.
[2024-10-13] MEDS: LACTATED RINGERS 1,000 ML 30 ML IV CONT (14:18)
[2024-10-13] MEDS: ceFAZolin 2 GM/D5W 50 ML 2 GM/50 ML BAG IVPB (14:18)
[2024-10-13] MEDS: LIDO 1%/EPINEPHRINE 1:100,000 20 ML VIAL 10 ML INFILTRATE (14:33)
[2024-10-13] MEDS: HEPARIN SODIUM 5,000 UNITS/ML VIAL 5000 UNITS IV PUSH (14:34)
[2024-10-13] MEDS: HEPARIN SODIUM, PORCINE 10,000 UNITS/10 ML VIAL 10 UNITS IV PUSH (14:35)
[2024-10-13] MEDS: SODIUM CHLORIDE 0.9% IV 500 ML 30 ML IV CONT (15:29)
--- NOTE | 2024-10-13 15:35 | P.OP_ITS ---
Procedure Note - Detailed Date of Procedure 10/13/24 Pre-op Diagnosis Dysfunction peritoneal dialysis catheter, inadequate venous access for hemodialysis Post-op Diagnosis Same Procedure Performed Placement left internal jugular tunneled dura flow central venous catheter using ultrasound and under fluoroscopy per Dr. Mishra Surgeon Gurpreet Mishra MD Director Of Strategy & Mobile Eduard Bowser, [facility] Anesthesia General (LMA) and Local Indications Patient was admitted with abdominal pain and found to have evidence of spontaneous bacterial peritonitis and a nonfunctioning peritoneal dialysis catheter. He is in need of hemodialysis while this was being treated and repaired, he is taken to surgery now for placement of tunneled central venous catheter for dialysis. Findings Tip of catheter in distal SVC right atrial junction Description of Procedure Patient was taken to surgery and placed in a supine position. The head was turned slightly to the right. The left neck and left chest were prepped and draped. The ultrasound probe was placed over the left neck. Internal jugular vein was quite small, being smaller actually then the carotid artery. Patient was placed in steep Trendelenburg. This improved the diameter of the right internal jugular vein somewhat. Using ultrasound I was able to cannulate the left internal jugular vein. A guidewire passed into the superior vena cava. I brought into the field C-arm fluoroscopy and with some additional manipulation pass the guidewire into the inferior vena cava. Patient was then taken out of Trendelenburg and placed in a more flattened supine position. I used C-arm fluoroscopy to lock the course of the 36 cm tunneled dura flow catheter so the tip would end in the distal SVC, right atrial junction. Counter incisions were then marked on the left chest and neck. Local was infiltrated into each of the counter incisions as well as at the exit site of the guidewire. Incisions were made at each of the marked sites and at the exit site of the guidewire. Each of the skin openings was slightly dilated with a clamp. The dura flow catheter was then tunneled retrograde from the chest up to and out the exit site of the guidewire. Again using C-arm fluoroscopy, I passed serial dilators over the guidewire and into the superior vena cava. The last dilator and sleeve were then passed over the guidewire and similar fashion. The dilator and guidewire were removed. The end of the dura flow catheter was then passed through the sleeve and down into the superior vena cava. The sleeve was removed. We checked the position under C-arm and it looked quite good. Both ports aspirated blood easily and flushed well with heparin. A final flush was administered. Caps were placed on the into the catheter. Each counter incision was then clos ed with subcuticular 4-0 Vicryl suture. The flange on the catheter was sutured to the skin with 3-0 nylon. An antibiotic ring was placed around the into the catheter at its exit site. The counter incisions were dressed with Exofin surgical adhesive. The exit site was dressed with gauze and transparent adhesive. Patient was then awakened and taken to recovery in good condition. Sponge and needle counts were correct x2. Implants 36 cm tunneled dura flow catheter Estimated Blood Loss -10 Urine Output 100 Drains No Packing No Pathology None sent Complications None Condition Stable Disposition PACU [facility] Billing Surgery - Charge Forward: Surgery Billing (Placement left internal jugular tunneled central venous catheter using ultrasound and under fluoroscopy.)
[2024-10-13 15:46] LABS: Glucose Point of Care 99 mg/dl (65-105)
--- NOTE | 2024-10-13 16:48 | P.PNNP_ITS ---
Progress Note: A&P Assessment and Plan (1) End stage renal disease: Code(s): N18.6 - End stage renal disease Status: Chronic Assessment and Plan: * see #3 * transition to back hemodialysis for now * s/p tunneled HD catheter placement (on 10/13/24) * HD today * plan HD tomorrow as well * continue attempts to get PD catheter to work * follow electrolytes, volume status, and clearance (2) SBP (spontaneous bacterial peritonitis): Code(s): K65.2 - Spontaneous bacterial peritonitis Status: Acute Assessment and Plan: * presumed etiology of admission symptoms * as suggested by history and abdominal pain * abdominal pain similar to previous bouts of peritonitis * elevated WBC noted * patient reports PD fluid looked cloudy and milky * lipase and LFTs normal * results of CT of A/P noted * unable to obtain PD fluid sample for testing to verify this (see #3) * unable to give intraperitoneal antibiotics as well (see #3) * follow blood cultures - negative to date * pain control * follow clinical exam (3) Obstruction of peritoneal dialysis catheter: Code(s): T85.691A - Other mechanical complication of intraperitoneal dialysis catheter, initial encounter Status: Acute Assessment and Plan: * possible inflammation and fibrin formation from peritonitis obstructing PD catheter (?) * however, cannot discount an anatomical issue (although no mention on admission CT scan) * unable to drain or infuse fluid via PD catheter per dialysis nursing * attempts at power flushing PD catheter met with resistance and some abdom inal discomfort * will attempt alteplase in PD catheter today and dwell overnight * making sure no issues with constipation (on bowel regimen) * will continue to troubleshoot this issue * temporary/back-up HD for now * suspect will need outpatient evaluation of this issue (4) Hypertension: Qualifiers: Hypertension type: primary hypertension Qualified Code(s): I10 - Essential (primary) hypertension Code(s): I10 - Essential (primary) hypertension Status: Chronic Assessment and Plan: * better control * suspect pain maybe playing a role with higher readings * resume home BP medications...listed outpatient BP medications are incorrect: * home BP medications are nifedipine ER 60mg qday, lisinopril 40mg qday, Toprol XL 100mg qday, and lasix 80mg qday * would slowly resume home medications as tolerated * follow trend of hemodynamics (5) Anemia: Qualifiers: Anemia type: iron deficiency Iron deficiency anemia type: unspecified iron deficiency Qualified Code(s): D50.9 - Iron deficiency anemia, unspecified Code(s): D64.9 - Anemia, unspecified Status: Chronic Assessment and Plan: * due to ESRD * H/H at goal/in range by recent check * start Epogen if Hgb goes to 10 or less * follow trend of H/H (6) Diabetes: Qualifiers: Chronic kidney disease stage: stage 5, not on chronic dialysis Diabetes mellitus complication detail: with chronic kidney disease Diabetes mellitus complication status: with kidney complications 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 Subjective Date/time seen: 10/13/24 16:48 Interval history: Follow-up for end stage renal disease on peritoneal dialysis. S/P tunneled HD catheter placement earlier today and tolerating hemodialysis treatment at the time of my visit (seen on HD at 4:38PM); no acute distress noted currently; no other issues/events to report; PD catheter still non- functional at this time Exam Narrative: General: WD/WN male in NAD Heart: tachycardic, normal S1 and S2; no rub Lungs: clear to auscultation Abdomen: + tenderness to palpation; positive bowel sounds Extremities: no cyanosis or clubbing; no edema Skin: warm and intact Objective Data Vital Signs Vital Signs: Vital Signs Temp Pulse Resp BP Pulse Ox O2 Del Method O2 Flow Rate 10/13/24 16:45 71 147/95 H 10/13/24 16:29 68 135/86 10/13/24 16:18 97.9 F 68 18 151/85 H 10/13/24 16:05 69 20 128/75 93 Room Air 10/13/24 15:55 68 20 128/76 96 Room Air 10/13/24 15:40 67 20 130/65 96 Room Air 10/13/24 15:29 98.4 F 61 22 H 106/59 L 98 Simple Face Mask 8 10/13/24 13:37 97.3 F L 85 14 150/87 H 99 Room Air 10/13/24 09:57 110 H 10/13/24 04:56 97.3 F L 74 20 171/97 H 95 10/13/24 00:40 95 Room Air 10/13/24 00:40 78 95 10/12/24 19:53 97.8 F 86 16 173/104 H 95 Intake/Output Intake/Output: Intake & Output 10/10/24 10/11/24 10/12/24 10/13/24 23:59 23:59 23:59 23:59 Intake Total 1040 690 400 Output Total 400 100 Balance 640 690 300 Meds/Results Medications: Active Medications Generic Name Dose Route Start Last Admin Trade Name Freq PRN Reason Stop Dose Admin Hydrocodone Bitart/Acetaminophen 1 tab 10/12/24 10:24 10/12/24 10:28 Hydrocodone/Acetaminophen (*Crx) 5-325 Mg Tablet PO 1 tab Q4H PRN Administration Pain Rated 4-6 Amlodipine Besylate 10 mg 10/12/24 09:00 10/13/24 09:57 Amlodipine Besylate 10 Mg Tablet PO 10 mg DAILY DNAA Administration Bupropion HCl 150 mg 10/12/24 09:00 10/13/24 09:57 Bupropion Hcl Xl (24 Hr) 150 Mg Tabcr PO 150 mg QAM DANA Administration Calcitriol 0.25 mcg 10/12/24 09:00 10/13/24 16:49 Calcitriol 0.25 Mcg Capsule PO Not Given DAILY DANA Calcium Acetate 1,334 mg 10/12/24 17:00 10/13/24 16:49 Calcium Acetate 667 Mg Tablet PO Not Given TIDWM DANA Epoetin Austin-epbx 10,000 units 10/13/24 20:05 10/13/24 17:11 Epoetin [place]-Epbx 10,000 Units/Ml Vial IV PUSH 10/13/24 20:06 10,000 units ONCE ONE Administration Escitalopram Oxalate 20 mg 10/12/24 09:00 10/13/24 09:57 Escitalopram Oxalate 10 Mg Tablet PO 20 mg DAILY DANA Administration Gentamicin Sulfate 1 applic 10/13/24 09:00 Gentamicin Sulfate 0.1% Oint 15 Gm Tube TOPICAL DAILY DANA Hydromorphone HCl 0.5 mg 10/12/24 10:24 10/13/24 13:05 Hydromorphone Hcl Inj (*Crx) 1 Mg/Ml Syr IV PUSH 0.5 mg Q8HR PRN Administration Pain Rated 7-10 Cefepime HCl 1 gm in 50 mls @ 100 mls/hr 10/11/24 08:30 10/13/24 09:58 Maxipime 1 Gm/Ns 50 Ml IVPB 100 mls/hr DAILY DANA Administration Albumin Human 50 mls @ 999 mls/hr 10/13/24 12:04 10/13/24 18:08 Albutein IVPB 11/12/24 12:03 Infused Q10M PRN Infusion HYPOTENSION Lactulose 20 gm 10/13/24 09:00 10/13/24 16:49 Lactulose 20 Gm/30 Ml Udc PO Not Given QAM [facility] Metoprolol Succinate 50 mg 10/12/24 09:00 10/13/24 09:57 Metoprolol Succinate Ext Rel 50 Mg Tabcr PO 50 mg QAM DANA Administration Ondansetron HCl 4 mg 10/11/24 08:20 10/13/24 05:34 Ondansetron Inj 4 Mg/2 Ml Vial IV PUSH 4 mg Q4H PRN Administration Nausea Polyethylene Glycol 17 gm 10/12/24 17:00 10/13/24 16:49 Polyethylene Glycol 3350 17 Gm Powd.Pack PO Not Given BID [facility] Sodium Bicarbonate 1,300 mg 10/12/24 09:00 10/13/24 16:50 Sodium Bicarbonate Tab 650 Mg Tablet PO Not Given BID [facility] Radiology Results: ITS Impressions Abdomen/Pelvis CT 10/11/24 07:58 IMPRESSION: 1. Small pleural effusion. 2. Mild pelvic lymphadenopathy which may be reactive. 3. Large volume of ascites with peritoneal dialysis catheter noted. 4. Right inguinal hernia containing fat. Pelvis CT 10/13/24 12:52 IMPRESSION: 1. No abscess. Scrotum Ultrasound 10/13/24 12:54 IMPRESSION: 1. Scrotal skin thickening. No abscess. Pelvis Ultrasound 10/13/24 12:56 IMPRESSION: 1. Skin thickening in the left inguinal region, consistent with inflammation. No drainable abscess. Chest X-Ray 10/13/24 15:44 IMPRESSION: 1. Left internal jugular likely tunneled central venous catheter with distal tip at the superior cavoatrial junction. No acute cardiopulmonary disease. 2. Prominent region of amorphous calcific density projecting over the proximal right humerus which could represent material external to the patient or tumoral calcinosis, heterotopic ossification or other dystrophic soft tissue calcification for which there would be a wide differential. Correlate with physical exam and clinical history. Central Venous Line 10/13/24 16:29 IMPRESSION: 1. Fluoroscopy utilized during left internal jugular central venous catheter placement. Labs Labs: Laboratory Tests 10/13/24 06:24 WBC 23.6 H Hgb 9.6 L Hct 31.4 L Plt Count 399 H Sodium 138 Potassium 5.6 H Chloride 99 Carbon Dioxide 12 L Anion Gap 27 H BUN 155 H Creatinine 13.71 H Estimated GFR 4 L Glucose 90 Calcium 8.8 Phosphorus 16.5 H Magnesium 3.0 H Albumin 2.6 L
[2024-10-13] MEDS: EPOETIN ALFA-EPBX 10,000 UNITS/ML VIAL 10000 UNITS IV PUSH (17:11)
--- NOTE | 2024-10-13 17:14 | PM.IMPN ---
Progress Note: A&P Assessment and Plan (1) SBP (spontaneous bacterial peritonitis): Code(s): K65.2 - Spontaneous bacterial peritonitis Status: Acute (2) Acute kidney failure: Code(s): N17.9 - Acute kidney failure, unspecified Status: Acute (3) End stage renal disease: Code(s): N18.6 - End stage renal disease Status: Chronic (4) Obstruction of peritoneal dialysis catheter: Code(s): T85.691A - Other mechanical complication of intraperitoneal dialysis catheter, initial encounter Status: Acute (5) Essential hypertension: Code(s): I10 - Essential (primary) hypertension Status: Acute Plan patient with history of peritoneal dialysis presented with abdominal pain, and elevated white counts suspicious for SBP, ER, surgical instrument technician was not not able to remove peritoneal fluids for culture, plan was to transfer patient to a tertiary care however speaking with Dr. Gomez, it was decided to monitor overnight and try again in the morning to collect sample. Again dialysis fluid sample was not able to aspirate, urine and blood culture no growth so far, patient is being treated with Cefepime. Urine and blood cultures have collected will follow-up. Today patient will have dialysis catheter place, Most likely patient will have hemodialysis and further recommendation to follow. Subjective Date/time seen: 10/13/24 17:14 Interval history: patient with history of peritoneal dialysis presented with abdominal pain, and elevated white counts suspicious for SBP, ER, surgical instrument technician was not not able to remove peritoneal fluids for culture, plan was to transfer patient to a tertiary care however speaking with Dr. Gomez, it was decided to monitor overnight and try again in the morning to collect sample. Again dialysis fluid sample was not able to aspirate, urine and blood culture no growth so far, patient is being treated with Cefepime. Urine and blood cultures have collected will follow-up. Today patient will have dialysis catheter place, Most likely patient will have hemodialysis and further recommendation to follow. Review of Systems Review of Systems: As per HPI. Exam Narrative: Patient is comfortable, NAD HEENT: eyes are clear and none icteric LUNGS:CTA HEART: RR S1S2 ABD: BS+, Soft and nontender Lower extremities: no edema SKIN: nonjaundiced Neuro: grossly intact. Objective Data Vital Signs Vital Signs: Vital Signs - 24 hr 10/12/24 19:53 10/13/24 00:40 10/13/24 00:40 Temperature 36.6 C Pulse Rate 86 78 Respiratory Rate 16 Blood Pressure 173/104 H Pulse Oximetry 95 95 95 Oxygen Delivery Room Air Oxygen Flow Rate 10/13/24 04:56 10/13/24 09:57 10/13/24 13:37 Temperature 36.3 C L 36.3 C L Pulse Rate 74 110 H 85 Respiratory Rate 20 14 Blood Pressure 171/97 H 150/87 H Pulse Oximetry 95 99 Oxygen Delivery Room Air Oxygen Flow Rate 10/13/24 15:29 10/13/24 15:40 10/13/24 15:55 Temperature 36.9 C Pulse Rate 61 67 68 Respiratory Rate 22 H 20 20 Blood Pressure 106/59 L 130/65 128/76 Pulse Oximetry 98 96 96 Oxygen Delivery Simple Face Mask Room Air Room Air Oxygen Flow Rate 8 10/13/24 16:05 10/13/24 16:18 Temperature 36.6 C Pulse Rate 69 68 Respiratory Rate 20 18 Blood Pressure 128/75 151/85 H Pulse Oximetry 93 Oxygen Delivery Room Air Oxygen Flow Rate Intake/Output Intake/Output: Intake & Output 10/10/24 10/11/24 10/12/24 10/13/24 23:59 23:59 23:59 23:59 Intake Total 1040 690 350 Output Total 400 100 Balance 640 690 250 Meds/Results Medications: Active Medications Generic Name Dose Route Start Last Admin Trade Name Freq PRN Reason Stop Dose Admin Hydrocodone Bitart/Acetaminophen 1 tab 10/12/24 10:24 10/12/24 10:28 Hydrocodone/Acetaminophen (*Crx) 5-325 Mg Tablet PO 1 tab Q4H PRN Administration Pain Rated 4-6 Amlodipine Besylate 10 mg 10/12/24 09:00 10/13/24 09:57 Amlodipine Besylate 10 Mg Tablet PO 10 mg DAILY DANA Administration Bupropion HCl 150 mg 10/12/24 09:00 10/13/24 09:57 Bupropion Hcl Xl (24 Hr) 150 Mg Tabcr PO 150 mg QAM DANA Administration Calcitriol 0.25 mcg 10/12/24 09:00 10/13/24 16:49 Calcitriol 0.25 Mcg Capsule PO Not Given DAILY DANA Calcium Acetate 1,334 mg 10/12/24 17:00 10/13/24 16:49 Calcium Acetate 667 Mg Tablet PO Not Given TIDWM [facility] Epoetin Austin-epbx 10,000 units 10/13/24 20:05 10/13/24 17:11 Epoetin [place]-Epbx 10,000 Units/Ml Vial IV PUSH 10/13/24 20:06 10,000 units ONCE ONE Administration Escitalopram Oxalate 20 mg 10/12/24 09:00 10/13/24 09:57 Escitalopram Oxalate 10 Mg Tablet PO 20 mg DAILY [facility] Administration Gentamicin Sulfate 1 applic 10/13/24 09:00 Gentamicin Sulfate 0.1% Oint 15 Gm Tube TOPICAL DAILY [facility] Hydromorphone HCl 0.5 mg 10/12/24 10:24 10/13/24 13:05 Hydromorphone Hcl Inj (*Crx) 1 Mg/Ml Syr IV PUSH 0.5 mg Q8HR PRN Administration Pain Rated 7-10 Cefepime HCl 1 gm in 50 mls @ 100 mls/hr 10/11/24 08:30 10/13/24 09:58 Maxipime 1 Gm/Ns 50 Ml IVPB 100 mls/hr DAILY [facility] Administration Albumin Human 50 mls @ 999 mls/hr 10/13/24 12:04 Albutein IVPB 11/12/24 12:03 Q10M PRN HYPOTENSION Lactulose 20 gm 10/13/24 09:00 10/13/24 16:49 Lactulose 20 Gm/30 Ml Udc PO Not Given QAM [facility] Metoprolol Succinate 50 mg 10/12/24 09:00 10/13/24 09:57 Metoprolol Succinate Ext Rel 50 Mg Tabcr PO 50 mg QAM [facility] Administration Ondansetron HCl 4 mg 10/11/24 08:20 10/13/24 05:34 Ondansetron Inj 4 Mg/2 Ml Vial IV PUSH 4 mg Q4H PRN Administration Nausea Polyethylene Glycol 17 gm 10/12/24 17:00 10/13/24 16:49 Polyethylene Glycol 3350 17 Gm Powd.Pack PO Not Given BID [facility] Sodium Bicarbonate 1,300 mg 10/12/24 09:00 10/13/24 16:50 Sodium Bicarbonate Tab 650 Mg Tablet PO Not Given BID [facility] Radiology Results: ITS Impressions Abdomen/Pelvis CT 10/11/24 07:58 IMPRESSION: 1. Small pleural effusion. 2. Mild pelvic lymphadenopathy which may be reactive. 3. Large volume of ascites with peritoneal dialysis catheter noted. 4. Right inguinal hernia containing fat. Pelvis CT 10/13/24 12:52 IMPRESSION: 1. No abscess. Scrotum Ultrasound 10/13/24 12:54 IMPRESSION: 1. Scrotal skin thickening. No abscess. Pelvis Ultrasound 10/13/24 12:56 IMPRESSION: 1. Skin thickening in the left inguinal region, consistent with inflammation. No drainable abscess. Chest X-Ray 10/13/24 15:44 IMPRESSION: 1. Left internal jugular likely tunneled central venous catheter with distal tip at the superior cavoatrial junction. No acute cardiopulmonary disease. 2. Prominent region of amorphous calcific density projecting over the proximal right humerus which could represent material external to the patient or tumoral calcinosis, heterotopic ossification or other dystrophic soft tissue calcification for which there would be a wide differential. Correlate with physical exam and clinical history. Central Venous Line 10/13/24 16:29 IMPRESSION: 1. Fluoroscopy utilized during left internal jugular central venous catheter placement. Labs Labs: Laboratory Results - last 24 hr 10/12/24 10/13/24 10/13/24 18:08 06:24 13:30 WBC 23.6 H RBC 3.47 L Hgb 9.6 L Hct 31.4 L MCV 90.5 MCH 27.7 MCHC 30.6 L RDW 16.9 H Plt Count 399 H MPV 8.8 Sodium 138 Potassium 5.6 H Chloride 99 Carbon Dioxide 12 L Anion Gap 27 H BUN 155 H Creatinine 13.71 H Estim Creat Clear Calc 6 Estimated GFR 4 L Glucose 90 POC Capillary Glucose 84 Calcium 8.8 Phosphorus 16.5 H Magnesium 3.0 H Albumin 2.6 L Blood Type A Positive Antibody Screen Negative 10/13/24 15:33 WBC RBC Hgb Hct MCV MCH MCHC RDW Plt Count MPV Sodium Potassium Chloride Carbon Dioxide Anion Gap BUN Creatinine Estim Creat Clear Calc Estimated GFR Glucose POC Capillary Glucose 99 Calcium Phosphorus Magnesium Albumin Blood Type Antibody Screen
[2024-10-13] MEDS: ALBUMIN HUMAN 25% 12.5 GM/50ML 50 ML IVPB (17:38)
[2024-10-14] VITALS (24 sets, daily range): BP systolic 146–169; BP diastolic 82–100; PULSE 74–111; RESP 16–20; TEMP 36.4–37; O2SAT 94–97
[2024-10-14] MEDS: HYDROmorphone HCL INJ (*CRX) 1 MG/ML SYR 0.5 MG IV PUSH ×3 (06:08→23:34)
[2024-10-14] MEDS: ONDANSETRON INJ 4 MG/2 ML VIAL IV PUSH ×2 (06:08→23:35)
[2024-10-14 06:23] LABS: Hematocrit 28.9 % (42.0-52.0); Hemoglobin 8.8 g/dL (14.0-18.0); Mean Corpuscular HGB Conc 30.4 g/dl (32-36); Mean Corpuscular Hemoglobin 26.8 pg (26-34); Mean Corpuscular Volume 88.1 fl (80-100); Mean Platelet Volume 8.4 fl (7.4-10.4); Platelet Count Result 348 k/mm3 (150-375); Red Blood Count 3.28 M/mm3 (4.6-6.20); Red Cell Distribution Width 16.5 % (11.5-14.5); White Blood Count 18.8 K/mm3 (4.5-10.0)
[2024-10-14 06:48] LABS: Albumin Level 3.1 g/dL (3.5-5.1); Anion Gap 14 mmol/L (4-12); Blood Urea Nitrogen 83 mg/dL (9-20); Calcium 8.4 mg/dL (8.4-10.2); Carbon Dioxide 24 mmol/L (22-30); Chloride 100 mmol/L (98-107); Estimated CRCL calculation 9 ml/min; Estimated Glomerular Filt Rate 6; Glucose 138 mg/dL (65-110); Magnesium 2.5 mg/dL (1.6-2.3); Phosphorus 10.9 mg/dL (2.5-4.5); Potassium 4.1 mmol/L (3.4-5.0); Sodium 138 mmol/L (137-145)
--- NOTE | 2024-10-14 11:10 | P.PNNP_ITS ---
Progress Note: A&P Assessment and Plan (1) End stage renal disease: Code(s): N18.6 - End stage renal disease Status: Chronic Assessment and Plan: * see #3 * transition to back hemodialysis for now * s/p tunneled HD catheter placement (on 10/13/24) * HD yesterday and today * continue attempts to get PD catheter to work (so far unsuccessful) * follow electrolytes, volume status, and clearance (2) SBP (spontaneous bacterial peritonitis): Code(s): K65.2 - Spontaneous bacterial peritonitis Status: Acute Assessment and Plan: * presumed etiology of admission symptoms * as suggested by history and abdominal pain * abdominal pain similar to previous bouts of peritonitis * elevated WBC noted * patient reports PD fluid looked cloudy and milky * lipase and LFTs normal * results of CT of A/P noted * unable to obtain PD fluid sample for testing to verify this (see #3) * unable to give intraperitoneal antibiotics as well (see #3) * follow blood cultures - negative to date * pain control * follow clinical exam (3) Obstruction of peritoneal dialysis catheter: Code(s): T85.691A - Other mechanical complication of intraperitoneal dialysis catheter, initial encounter Status: Acute Assessment and Plan: * possible inflammation and fibrin formation from peritonitis obstructing PD catheter (?) * however, cannot discount an anatomical issue (although no mention on admission CT scan) * unable to drain or infuse fluid via PD catheter per dialysis nursing * attempts at power flushing PD catheter met with resistance and some abdominal discomfort * will attempt alteplase in PD catheter today and dwell overnight * making sure no issues with constipation (on bowel regimen) * will continue to troubleshoot this issue * temporary/back-up HD for now * suspect will need outpatient evaluation of this issue (4) Hypertension: Qualifiers: Hypertension type: primary hypertension Qualified Code(s): I10 - Essential (primary) hypertension Code(s): I10 - Essential (primary) hypertension Status: Chronic Assessment and Plan: * better control * suspect pain maybe playing a role with higher readings * resume home BP medications...listed outpatient BP medications are incorrect: * home BP medications are nifedipine ER 60mg qday, lisinopril 40mg qday, Toprol XL 100mg qday, and lasix 80mg qday * would slowly resume home medications as tolerated * follow trend of hemodynamics (5) Anemia: Qualifiers: Anemia type: iron deficiency Iron deficiency anemia type: unspecified iron deficiency Qualified Code(s): D50.9 - Iron deficiency anemia, unspecified Code(s): D64.9 - Anemia, unspecified Status: Chronic Assessment and Plan: * due to ESRD * Epogen with HD * follow trend of H/H (6) Diabetes: Qualifiers: Chronic kidney disease stage: stage 5, not on chronic dialysis Diabetes mellitus complication detail: with chronic kidney disease Diabetes mellitus complication status: with kidney complications Diabetes mellitus correction insulin use: without correction 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 L Subjective Date/time seen: 10/14/24 11:10 Interval history: Follow-up for end stage renal disease (transitioned to hemodialysis due to PD catheter dysfunction). Tolerating hemodialysis treatment at the time of my visit (seen on HD at 11:00AM); tolerated dialysis treatment yesterday as well; abdominal pain appears to be improving; no apparent distress noted. Exam 2 Narrative: General: WD/WN male in NAD Heart: mildly tachycardic, normal S1 and S2; no rub Lungs: clear to auscultation Abdomen: + mild tenderness to palpation; positive bowel sounds Extremities: no cyanosis or clubbing; no edema Skin: no rash Objective Data Vital Signs Vital Signs: Vital Signs Temp Pulse Resp BP Pulse Ox O2 Del Method 10/14/24 11:00 103 H 153/95 H 10/14/24 10:45 102 H 156/90 H 10/14/24 10:30 104 H 160/95 H 10/14/24 10:15 105 H 157/92 H 10/14/24 10:00 102 H 146/92 H 10/14/24 09:45 102 H 160/90 H 10/14/24 09:30 104 H 165/97 H 10/14/24 09:15 100 161/97 H 10/14/24 09:00 96 157/93 H 10/14/24 08:53 95 158/86 H 10/14/24 08:43 98.2 F 95 18 158/92 H 10/14/24 04:35 97.5 F L 89 20 149/82 H 97 10/14/24 00:15 74 96 10/13/24 21:02 97.8 F 87 20 142/95 H 99 10/13/24 19:47 98.1 F 93 18 154/96 H 10/13/24 19:36 93 147/94 H 10/13/24 19:30 96 128/88 10/13/24 19:15 98 141/92 H 10/13/24 19:00 97 137/92 H 10/13/24 18:45 98 113/80 10/13/24 18:30 96 110/81 10/13/24 18:15 93 123/81 10/13/24 18:00 94 114/78 10/13/24 17:45 95 121/77 10/13/24 17:33 95 93/61 L 10/13/24 17:30 90 106/72 10/13/24 17:15 88 123/91 H 10/13/24 17:00 77 137/92 H 10/13/24 16:45 71 147/95 H 10/13/24 16:29 68 135/86 10/13/24 16:18 97.9 F 68 18 151/85 H 10/13/24 16:05 69 20 128/75 93 Room Air 10/13/24 15:55 68 20 128/76 96 Room Air 10/13/24 15:40 67 20 130/65 96 Room Air Intake/Output Intake/Output: Intake & Output 10/11/24 10/12/24 10/13/24 10/14/24 23:59 23:59 23:59 23:59 Intake Total 1040 690 450 680 Output Total 400 200 500 Balance 640 690 250 180 Meds/Results Medications: Active Medications Generic Name Dose Route Start Last Admin Trade Name Freq PRN Reason Stop Dose Admin Hydrocodone Bitart/Acetaminophen 1 tab 10/12/24 10:24 10/12/24 10:28 Hydrocodone/Acetaminophen (*Crx) 5-325 Mg Tablet PO 1 tab Q4H PRN Administration Pain Rated 4-6 Amlodipine Besylate 10 mg 10/12/24 09:00 10/14/24 13:30 Amlodipine Besylate 10 Mg Tablet PO 10 mg DAILY DANA Administration Bupropion HCl 150 mg 10/12/24 09:00 10/14/24 13:30 Bupropion Hcl Xl (24 Hr) 150 Mg Tabcr PO 150 mg QAM DANA Administration Calcitriol 0.25 mcg 10/12/24 09:00 10/14/24 13:30 Calcitriol 0.25 Mcg Capsule PO 0.25 mcg DAILY DANA Administration Calcium Acetate 1,334 mg 10/12/24 17:00 10/14/24 13:29 Calcium Acetate 667 Mg Tablet PO 1,334 mg TIDWM DANA Administration Epoetin Austin-epbx 10,000 units 10/14/24 19:20 10/14/24 12:05 Epoetin [place]-Epbx 10,000 Units/Ml Vial IV PUSH 10/14/24 19:21 10,000 units ONCE ONE Administration Escitalopram Oxalate 20 mg 10/12/24 09:00 10/14/24 13:29 Escitalopram Oxalate 10 Mg Tablet PO 20 mg DAILY DANA Administration Gentamicin Sulfate 1 applic 10/13/24 09:00 Gentamicin Sulfate 0.1% Oint 15 Gm Tube TOPICAL DAILY [facility] Hydromorphone HCl 0.5 mg 10/12/24 10:24 10/14/24 14:29 Hydromorphone Hcl Inj (*Crx) 1 Mg/Ml Syr IV PUSH 0.5 mg Q8HR PRN Administration Pain Rated 7-10 Cefepime HCl 1 gm in 50 mls @ 100 mls/hr 10/11/24 08:30 10/14/24 13:28 Maxipime 1 Gm/Ns 50 Ml IVPB 100 mls/hr DAILY DANA Administration Albumin Human 50 mls @ 999 mls/hr 10/13/24 12:04 10/13/24 18:08 Albutein IVPB 11/12/24 12:03 Infused Q10M PRN Infusion HYPOTENSION Lactulose 20 gm 10/13/24 09:00 10/14/24 13:29 Lactulose 20 Gm/30 Ml Udc PO 20 gm QAM DANA Administration Metoprolol Succinate 50 mg 10/12/24 09:00 10/14/24 13:30 Metoprolol Succinate Ext Rel 50 Mg Tabcr PO 50 mg QAM DANA Administration Ondansetron HCl 4 mg 10/11/24 08:20 10/14/24 06:08 Ondansetron Inj 4 Mg/2 Ml Vial IV PUSH 4 mg Q4H PRN Administration Nausea Polyethylene Glycol 17 gm 10/12/24 17:00 10/14/24 13:29 Polyethylene Glycol 3350 17 Gm Powd.Pack PO 17 gm BID DANA Administration Sodium Bicarbonate 1,300 mg 10/12/24 09:00 10/14/24 13:29 Sodium Bicarbonate Tab 650 Mg Tablet PO 1,300 mg BID DANA Administration Radiology Results: ITS Impressions Abdomen/Pelvis CT 10/11/24 07:58 IMPRESSION: 1. Small pleural effusion. 2. Mild pelvic lymphadenopathy which may be reactive. 3. Large volume of ascites with peritoneal dialysis catheter noted. 4. Right inguinal hernia containing fat. Pelvis CT 10/13/24 12:52 IMPRESSION: 1. No abscess. Scrotum Ultrasound 10/13/24 12:54 IMPRESSION: 1. Scrotal skin thickening. No abscess. Pelvis Ultrasound 10/13/24 12:56 IMPRESSION: 1. Skin thickening in the left inguinal region, consistent with inflammation. No drainable abscess. Chest X-Ray 10/13/24 15:44 IMPRESSION: 1. Left internal jugular likely tunneled central venous catheter with distal tip at the superior cavoatrial junction. No acute cardiopulmonary disease. 2. Prominent region of amorphous calcific density projecting over the proximal right humerus which could represent material external to the patient or tumoral calcinosis, heterotopic ossification or other dystrophic soft tissue calcification for which there would be a wide differential. Correlate with physical exam and clinical history. Central Venous Line 10/13/24 16:29 IMPRESSION: 1. Fluoroscopy utilized during left internal jugular central venous catheter placement. Labs Labs: Laboratory Tests 10/14/24 06:07 10/14/24 06:07 Calcium 8.4 Phosphorus 10.9 H Magnesium 2.5 H Albumin 3.1 L
[2024-10-14] MEDS: EPOETIN ALFA-EPBX 10,000 UNITS/ML VIAL 10000 UNITS IV PUSH (12:05)
[2024-10-14] MEDS: CEFEPIME 1 GM/NS 50 ML 1 GM/50 ML BAG IVPB (13:28)
[2024-10-14] MEDS: SODIUM BICARBONATE TAB 650 MG TABLET 1300 MG PO ×2 (13:29→17:15)
[2024-10-14] MEDS: polyethylene glycoL 3350 17 GM POWD.PACK PO ×2 (13:29→17:16)
[2024-10-14] MEDS: LACTULOSE 20 GM/30 ML UDC PO (13:29)
[2024-10-14] MEDS: ESCITALOPRAM OXALATE 10 MG TABLET 20 MG PO (13:29)
[2024-10-14] MEDS: CALCIUM ACETATE 667 MG TABLET 1334 MG PO (13:29)
[2024-10-14] MEDS: calcitrioL 0.25 MCG CAPSULE PO (13:30)
[2024-10-14] MEDS: METOPROLOL SUCCINATE EXT REL 50 MG TABCR PO (13:30)
[2024-10-14] MEDS: amLODIPine BESYLATE 10 MG TABLET PO (13:30)
[2024-10-14] MEDS: buPROPion HCL XL (24 HR) 150 MG TABCR PO (13:30)
--- NOTE | 2024-10-14 14:22 | P.PNIM_ITS ---
Progress Note: A&P Assessment and Plan (1) SBP (spontaneous bacterial peritonitis): Code(s): K65.2 - Spontaneous bacterial peritonitis Status: Acute (2) Acute kidney failure: Code(s): N17.9 - Acute kidney failure, unspecified Status: Acute (3) End stage renal disease: Code(s): N18.6 - End stage renal disease Status: Chronic (4) Obstruction of peritoneal dialysis catheter: Code(s): T85.691A - Other mechanical complication of intraperitoneal dialysis catheter, initial encounter Status: Acute (5) Essential hypertension: Code(s): I10 - Essential (primary) hypertension Status: Acute Plan patient with history of peritoneal dialysis presented with abdominal pain, and elevated white counts suspicious for SBP, ER, broadband technician was not not able to remove peritoneal fluids for culture, plan was to transfer patient to a tertiary care however speaking with Dr. Gomez, it was decided to monitor overnight and try again in the morning to collect sample. Again dialysis fluid sample was not able to aspirate, urine and blood culture no growth so far, patient is being treated with Cefepime. patient white counts are trending down, on 10/13patient had dialysis catheter placed and had HD, today again patient is having HD and seen in the dialysis center stats, feeling much better and abdominal pain has improve on 10/[address] Carbajal, once clinically stable will need to be seen at [facility] for further management of his PD catheter. Subjective Date/time seen: 10/14/24 14:22 Interval history: patient with history of peritoneal dialysis presented with abdominal pain, and elevated white counts suspicious for SBP, ER, broadband technician was not not able to remove peritoneal fluids for culture, plan was to transfer patient to a tertiary care however speaking with Dr. Gomez, it was decided to monitor overnight and try again in the morning to collect sample. Again dialysis fluid sample was not able to aspirate, urine and blood culture no growth so far, patient is being treated with Cefepime. patient white counts are trending down, on 10/13patient had dialysis catheter placed and had HD, today again patient is having HD and seen in the dialysis center stats, feeling much better and abdominal pain has improve on 10/[address] Carbajal, once clinically stable will need to be seen at [facility] for further management of his PD catheter. Review of Systems Review of Systems: As per HPI. Exam Narrative: Patient is comfortable, NAD HEENT: eyes are clear and none icteric LUNGS:CTA HEART: RR S1S2 ABD: BS+, Soft and nontender Lower extremities: no edema SKIN: nonjaundiced Neuro: grossly intact. Objective Data Vital Signs Vital Signs: Vital Signs - 24 hr 10/13/24 15:29 10/13/24 15:40 10/13/24 15:55 Temperature 36.9 C Pulse Rate 61 67 68 Respiratory Rate 22 H 20 20 Blood Pressure 106/59 L 130/65 128/76 Pulse Oximetry 98 96 96 Oxygen Delivery Simple Face Mask Room Air Room Air Oxygen Flow Rate 8 10/13/24 16:05 10/13/24 16:18 10/13/24 16:29 Temperature 36.6 C Pulse Rate 69 68 68 Respiratory Rate 20 18 Blood Pressure 128/75 151/85 H 135/86 Pulse Oximetry 93 Oxygen Delivery Room Air Oxygen Flow Rate 10/13/24 16:45 10/13/24 17:00 10/13/24 17:15 Temperature Pulse Rate 71 77 88 Respiratory Rate Blood Pressure 147/95 H 137/92 H 123/91 H Pulse Oximetry Oxygen Delivery Oxygen Flow Rate 10/13/24 17:30 10/13/24 17:33 10/13/24 17:45 Temperature Pulse Rate 90 95 95 Respiratory Rate Blood Pressure 106/72 93/61 L 121/77 Pulse Oximetry Oxygen Delivery Oxygen Flow Rate 10/13/24 18:00 10/13/24 18:15 10/13/24 18:30 Temperature Pulse Rate 94 93 96 Respiratory Rate Blood Pressure 114/78 123/81 110/81 Pulse Oximetry Oxygen Delivery Oxygen Flow Rate 10/13/24 18:45 10/13/24 19:00 10/13/24 19:15 Temperature Pulse Rate 98 97 98 Respiratory Rate Blood Pressure 113/80 137/92 H 141/92 H Pulse Oximetry Oxygen Delivery Oxygen Flow Rate 10/13/24 19:30 10/13/24 19:36 10/13/24 19:47 Temperature 36.7 C Pulse Rate 96 93 93 Respiratory Rate 18 Blood Pressure 128/88 147/94 H 154/96 H Pulse Oximetry Oxygen Delivery Oxygen Flow Rate 10/13/24 21:02 10/14/24 00:15 10/14/24 04:35 Temperature 36.6 C 36.4 C L Pulse Rate 87 74 89 Respiratory Rate 20 20 Blood Pressure 142/95 H 149/82 H Pulse Oximetry 99 96 97 Oxygen Delivery Oxygen Flow Rate 10/14/24 08:43 10/14/24 08:53 10/14/24 09:00 Temperature 36.8 C Pulse Rate 95 95 96 Respiratory Rate 18 Blood Pressure 158/92 H 158/86 H 157/93 H Pulse Oximetry Oxygen Delivery Oxygen Flow Rate 10/14/24 09:15 10/14/24 09:30 10/14/24 09:45 Temperature Pulse Rate 100 104 H 102 H Respiratory Rate Blood Pressure 161/97 H 165/97 H 160/90 H Pulse Oximetry Oxygen Delivery Oxygen Flow Rate 10/14/24 10:00 10/14/24 10:15 10/14/24 10:30 Temperature Pulse Rate 102 H 105 H 104 H Respiratory Rate Blood Pressure 146/92 H 157/92 H 160/95 H Pulse Oximetry Oxygen Delivery Oxygen Flow Rate 10/14/24 10:45 10/14/24 11:00 10/14/24 11:15 Temperature Pulse Rate 102 H 103 H 103 H Respiratory Rate Blood Pressure 156/90 H 153/95 H 162/100 H Pulse Oximetry Oxygen Delivery Oxygen Flow Rate 10/14/24 11:30 10/14/24 11:45 10/14/24 12:00 Temperature Pulse Rate 106 H 108 H 108 H Respiratory Rate Blood Pressure 155/94 H 159/95 H 167/98 H Pulse Oximetry Oxygen Delivery Oxygen Flow Rate 10/14/24 12:15 10/14/24 12:24 10/14/24 12:45 Temperature 36.7 C Pulse Rate 109 H 109 H 104 H Respiratory Rate 18 Blood Pressure 161/99 H 169/98 H 160/94 H Pulse Oximetry Oxygen Delivery Oxygen Flow Rate 10/14/24 13:30 Temperature Pulse Rate 88 Respiratory Rate Blood Pressure Pulse Oximetry Oxygen Delivery Oxygen Flow Rate Intake/Output Intake/Output: Intake & Output 10/11/24 10/12/24 10/13/24 10/14/24 23:59 23:59 23:59 23:59 Intake Total 1040 690 450 440 Output Total 400 200 500 Balance 640 690 250 -60 Meds/Results Medications: Active Medications Generic Name Dose Route Start Last Admin Trade Name Freq PRN Reason Stop Dose Admin Hydrocodone Bitart/Acetaminophen 1 tab 03/06/25 10:24 10/12/24 10:28 Hydrocodone/Acetaminophen (*Crx) 5-325 Mg Tablet PO 1 tab Q4H PRN Administration Pain Rated 4-6 Amlodipine Besylate 10 mg 10/12/24 09:00 10/14/24 13:30 Amlodipine Besylate 10 Mg Tablet PO 10 mg DAILY DANA Administration Bupropion HCl 150 mg 10/12/24 09:00 10/14/24 13:30 Bupropion Hcl Xl (24 Hr) 150 Mg Tabcr PO 150 mg QAM DANA Administration Calcitriol 0.25 mcg 10/12/24 09:00 10/14/24 13:30 Calcitriol 0.25 Mcg Capsule PO 0.25 mcg DAILY DANA Administration Calcium Acetate 1,334 mg 10/12/24 17:00 10/14/24 13:29 Calcium Acetate 667 Mg Tablet PO 1,334 mg TIDWM DANA Administration Epoetin [place]-epbx 10,000 units 10/14/24 19:20 10/14/24 12:05 Epoetin [place]-Epbx 10,000 Units/Ml Vial IV PUSH 10/14/24 19:21 10,000 units ONCE ONE Administration Escitalopram Oxalate 20 mg 10/12/24 09:00 10/14/24 13:29 Escitalopram Oxalate 10 Mg Tablet PO 20 mg DAILY DANA Administration Gentamicin Sulfate 1 applic 10/13/24 09:00 Gentamicin Sulfate 0.1% Oint 15 Gm Tube TOPICAL DAILY DANA Hydromorphone HCl 0.5 mg 10/12/24 10:24 10/14/24 06:08 Hydromorphone Hcl Inj (*Crx) 1 Mg/Ml Syr IV PUSH 0.5 mg Q8HR PRN Administration Pain Rated 7-10 Cefepime HCl 1 gm in 50 mls @ 100 mls/hr 10/11/24 08:30 10/14/24 13:28 Maxipime 1 Gm/Ns 50 Ml IVPB 100 mls/hr DAILY DANA Administration Albumin Human 50 mls @ 999 mls/hr 10/13/24 12:04 10/13/24 18:08 Albutein IVPB 11/12/24 12:03 Infused Q10M PRN Infusion HYPOTENSION Lactulose 20 gm 10/13/24 09:00 10/14/24 13:29 Lactulose 20 Gm/30 Ml Udc PO 20 gm QAM DANA Administration Metoprolol Succinate 50 mg 10/12/24 09:00 10/14/24 13:30 Metoprolol Succinate Ext Rel 50 Mg Tabcr PO 50 mg QAM DANA Administration Ondansetron HCl 4 mg 10/11/24 08:20 10/14/24 06:08 Ondansetron Inj 4 Mg/2 Ml Vial IV PUSH 4 mg Q4H PRN Administration Nausea Polyethylene Glycol 17 gm 10/12/24 17:00 10/14/24 13:29 Polyethylene Glycol 3350 17 Gm Powd.Pack PO 17 gm BID DANA Administration Sodium Bicarbonate 1,300 mg 10/12/24 09:00 10/14/24 13:29 Sodium Bicarbonate Tab 650 Mg Tablet PO 1,300 mg BID DANA Administration Radiology Results: ITS Impressions Abdomen/Pelvis CT 10/11/24 07:58 IMPRESSION: 1. Small pleural effusion. 2. Mild pelvic lymphadenopathy which may be reactive. 3. Large volume of ascites with peritoneal dialysis catheter noted. 4. Right inguinal hernia containing fat. Pelvis CT 10/13/24 12:52 IMPRESSION: 1. No abscess. Scrotum Ultrasound 10/13/24 12:54 IMPRESSION: 1. Scrotal skin thickening. No abscess. Pelvis Ultrasound 10/13/24 12:56 IMPRESSION: 1. Skin thickening in the left inguinal region, consistent with inflammation. No drainable abscess. Chest X-Ray 10/13/24 15:44 IMPRESSION: 1. Left internal jugular likely tunneled central venous catheter with distal tip at the superior cavoatrial junction. No acute cardiopulmonary disease. 2. Prominent region of amorphous calcific density projecting over the proximal right humerus which could represent material external to the patient or tumoral calcinosis, heterotopic ossification or other dystrophic soft tissue calcification for which there would be a wide differential. Correlate with physical exam and clinical history. Central Venous Line 10/13/24 16:29 IMPRESSION: 1. Fluoroscopy utilized during left internal jugular central venous catheter placement. Labs Labs: Laboratory Results - last 24 hr 10/13/24 10/14/24 15:33 06:07 WBC 18.8 H RBC 3.28 L Hgb 8.8 L Hct 28.9 L MCV 88.1 MCH 26.8 MCHC 30.4 L RDW 16.5 H Plt Count 348 MPV 8.4 Sodium 138 Potassium 4.1 Chloride 100 Carbon Dioxide 24 Anion Gap 14 H BUN 83 H D Creatinine 9.35 H Estim Creat Clear Calc 9 Estimated GFR 6 L Glucose 138 H POC Capillary Glucose 99 Calcium 8.4 Phosphorus 10.9 H Magnesium 2.5 H Albumin 3.1 L
--- NOTE | 2024-10-15 03:10 | PC.NURSE ---
Daylight Savings Time For Daylight Savings Time Ending in the Fall - Clocks are moved back. For Daylight Savings Time Beginning in the Spring - Clocks are moved ahead. For [facility], the time of change occurs at 0200 hrs. Time is taken from the banquet server. This entry on the patient's chart recognizes the change in time reflected during documentation. Example: 2 entries for vital signs may be charted for 0200 hrs.
[2024-10-15 04:30] VITALS: BP 165/93; PULSE 84; RESP 16; TEMP 36.6; O2SAT 95
[2024-10-15 06:03] LABS: Hematocrit 30.5 % (42.0-52.0); Hemoglobin 8.9 g/dL (14.0-18.0); Mean Corpuscular HGB Conc 29.2 g/dl (32-36); Mean Corpuscular Hemoglobin 26.3 pg (26-34); Mean Corpuscular Volume 90.2 fl (80-100); Mean Platelet Volume 8.5 fl (7.4-10.4); Platelet Count Result 305 k/mm3 (150-375); Red Blood Count 3.38 M/mm3 (4.6-6.20); White Blood Count 16.4 K/mm3 (4.5-10.0)
[2024-10-15 06:30] LABS: Anion Gap 11 mmol/L (4-12); Blood Urea Nitrogen 47 mg/dL (9-20); Calcium 8.6 mg/dL (8.4-10.2); Carbon Dioxide 25 mmol/L (22-30); Chloride 103 mmol/L (98-107); Estimated CRCL calculation 14 ml/min; Estimated Glomerular Filt Rate 10; Glucose 108 mg/dL (65-110); Magnesium 2.4 mg/dL (1.6-2.3); Phosphorus 7.1 mg/dL (2.5-4.5); Potassium 4.2 mmol/L (3.4-5.0); Sodium 139 mmol/L (137-145)
[2024-10-15] MEDS: calcitrioL 0.25 MCG CAPSULE PO (08:40)
[2024-10-15] MEDS: SODIUM BICARBONATE TAB 650 MG TABLET 1300 MG PO ×2 (08:40→16:54)
[2024-10-15] MEDS: amLODIPine BESYLATE 10 MG TABLET PO (08:40)
[2024-10-15] MEDS: buPROPion HCL XL (24 HR) 150 MG TABCR PO (08:40)
[2024-10-15] MEDS: METOPROLOL SUCCINATE EXT REL 50 MG TABCR PO (08:40)
[2024-10-15] MEDS: polyethylene glycoL 3350 17 GM POWD.PACK PO ×2 (08:40→16:54)
[2024-10-15] MEDS: CEFEPIME 1 GM/NS 50 ML 1 GM/50 ML BAG IVPB (08:40)
[2024-10-15] MEDS: LACTULOSE 20 GM/30 ML UDC PO (08:41)
[2024-10-15] MEDS: CALCIUM ACETATE 667 MG TABLET 1334 MG PO ×3 (08:41→16:54)
[2024-10-15] MEDS: ESCITALOPRAM OXALATE 10 MG TABLET 20 MG PO (08:47)
[2024-10-15] MEDS: GENTAMICIN SULFATE 0.1% OINT 15 GM TUBE 1 APPLIC TOPICAL (08:56)
[2024-10-15] MEDS: HYDROcodone/acetaminophen (*CRX) 5-325 MG TABLET 1 TAB PO ×2 (10:18→17:07)
[2024-10-15] MEDS: ONDANSETRON INJ 4 MG/2 ML VIAL IV PUSH (10:18)
--- NOTE | 2024-10-15 12:21 | P.PNNP_ITS ---
Progress Note: A&P Assessment and Plan (1) End stage renal disease: Code(s): N18.6 - End stage renal disease Status: Chronic Assessment and Plan: * see #3 * transition to back hemodialysis for now * s/p tunneled HD catheter placement (on 10/13/24) * HD tomorrow * attempts to get PD catheter to work have been unsuccessful (see #3) * follow electrolytes, volume status, and clearance (2) SBP (spontaneous bacterial peritonitis): Code(s): K65.2 - Spontaneous bacterial peritonitis Status: Acute Assessment and Plan: * presumed etiology of admission symptoms * as suggested by history and abdominal pain * abdominal pain similar to previous bouts of peritonitis * elevated WBC noted * patient reports PD fluid looked cloudy and milky * lipase and LFTs normal * results of CT of A/P noted * unable to obtain PD fluid sample for testing to verify this (see #3) * unable to give intraperitoneal antibiotics as well (see #3) * follow blood cultures - negative to date * pain control * follow clinical exam (3) Obstruction of peritoneal dialysis catheter: Code(s): T85.691A - Other mechanical complication of intraperitoneal dialysis catheter, initial encounter Status: Acute Assessment and Plan: * possible inflammation and fibrin formation from peritonitis obstructing PD catheter (?) * however, cannot discount an anatomical issue (although no mention on admission CT scan) * unable to drain or infuse fluid via PD catheter per dialysis nursing * attempts at power flushing PD catheter met with resistance and some abdominal discomfort * will attempt alteplase in PD catheter today and dwell overnight * making sure no issues with constipation (on bowel regimen) * will continue to troubleshoot this issue * temporary/back-up HD for now * suspect will need outpatient evaluation of this issue (4) Hypertension: Qualifiers: Hypertension type: primary hypertension Qualified Code(s): I10 - Essential (primary) hypertension Code(s): I10 - Essential (primary) hypertension Status: Chronic Assessment and Plan: * better control * suspect pain maybe playing a role with higher readings * resume home BP medications...listed outpatient BP medications are incorrect: * home BP medications are nifedipine ER 60mg qday, lisinopril 40mg qday, Toprol XL 100mg qday, and lasix 80mg qday * would slowly resume home medications as tolerated * follow trend of hemodynamics (5) Anemia: Qualifiers: Anemia type: iron deficiency Iron deficiency anemia type: unspecified iron deficiency Qualified Code(s): D50.9 - Iron deficiency anemia, unspecified Code(s): D64.9 - Anemia, unspecified Status: Chronic Assessment and Plan: * due to ESRD * Epogen with HD * follow trend of H/H (6) Diabetes: Qualifiers: Chronic kidney disease stage: stage 5, not on chronic dialysis Diabetes mellitus complication detail: with chronic kidney disease Diabetes mellitus complication status: with kidney complications Diabetes mellitus long term care pharmacist insulin use: without long term care pharmacist 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 L Subjective Date/time seen: 10/15/24 12:21 Interval history: Follow-up for end stage renal disease (transitioned to hemodialysis due to PD catheter dysfunction). Tolerated dialysis treatment yesterday without any issues or problems; abdominal pain/discomfort present but slowly improving with ongoing therapy; no other issues/events overnight or earlier this morning. Exam 2 Narrative: General: WD/WN male in NAD Heart: RRR, normal S1 and S2; no rub Lungs: clear to auscultation Abdomen: + mild tenderness to palpation; positive bowel sounds Extremities: no cyanosis or clubbing; no edema Skin: no nodules Objective Data Vital Signs Vital Signs: Vital Signs Temp Pulse Resp BP Pulse Ox O2 Del Method 10/15/24 12:00 96.6 F L 84 24 H 191/69 H 96 10/15/24 08:15 Room Air 10/15/24 04:30 97.8 F 84 16 165/93 H 95 10/14/24 20:00 88 16 94 Room Air 10/14/24 19:41 98.5 F 88 16 156/83 H 94 Intake/Output Intake/Output: Intake & Output 10/12/24 10/13/24 10/14/24 10/16/24 23:59 23:59 23:59 00:59 Intake Total 689 171 8370 1330 Output Total 200 500 Balance 690 205 170 6653 Meds/Results Medications: Active Medications Generic Name Dose Route Start Last Admin Trade Name Freq PRN Reason Stop Dose Admin Hydrocodone Bitart/Acetaminophen 1 tab 10/12/24 10:24 10/15/24 17:07 Hydrocodone/Acetaminophen (*Crx) 5-325 Mg Tablet PO 1 tab Q4H PRN Administration Pain 4-10 Amlodipine Besylate 10 mg 10/12/24 09:00 10/15/24 08:40 Amlodipine Besylate 10 Mg Tablet PO 10 mg DAILY DANA Administration Bupropion HCl 150 mg 10/12/24 09:00 10/15/24 08:40 Bupropion Hcl Xl (24 Hr) 150 Mg Tabcr PO 150 mg QAM DANA Administration Calcitriol 0.25 mcg 10/12/24 09:00 10/15/24 08:40 Calcitriol 0.25 Mcg Capsule PO 0.25 mcg DAILY DANA Administration Calcium Acetate 1,334 mg 10/12/24 17:00 10/15/24 16:54 Calcium Acetate 667 Mg Tablet PO 1,334 mg TIDWM DANA Administration Escitalopram Oxalate 20 mg 10/12/24 09:00 10/15/24 08:47 Escitalopram Oxalate 10 Mg Tablet PO 20 mg DAILY DANA Administration Gentamicin Sulfate 1 applic 10/13/24 09:00 10/15/24 08:57 Gentamicin Sulfate 0.1% Oint 15 Gm Tube TOPICAL Not Given DAILY DANA Cefepime HCl 1 gm in 50 mls @ 100 mls/hr 10/11/24 08:30 10/15/24 08:40 Maxipime 1 Gm/Ns 50 Ml IVPB 100 mls/hr DAILY DANA Administration Albumin Human 50 mls @ 999 mls/hr 10/13/24 12:04 10/13/24 18:08 Albutein IVPB 11/12/24 12:03 Infused Q10M PRN Infusion HYPOTENSION Lactulose 20 gm 10/13/24 09:00 10/15/24 08:41 Lactulose 20 Gm/30 Ml Udc PO 20 gm QAM DANA Administration Metoprolol Succinate 50 mg 10/12/24 09:00 10/15/24 08:40 Metoprolol Succinate Ext Rel 50 Mg Tabcr PO 50 mg QAM DANA Administration Ondansetron HCl 4 mg 10/11/24 08:20 10/15/24 10:18 Ondansetron Inj 4 Mg/2 Ml Vial IV PUSH 4 mg Q4H PRN Administration Nausea Polyethylene Glycol 17 gm 10/12/24 17:00 10/15/24 16:54 Polyethylene Glycol 3350 17 Gm Powd.Pack PO 17 gm BID DANA Administration Sodium Bicarbonate 1,300 mg 10/12/24 09:00 10/15/24 16:54 Sodium Bicarbonate Tab 650 Mg Tablet PO 1,300 mg BID DANA Administration Radiology Results: ITS Impressions Abdomen/Pelvis CT 10/11/24 07:58 IMPRESSION: 1. Small pleural effusion. 2. Mild pelvic lymphadenopathy which may be reactive. 3. Large volume of ascites with peritoneal dialysis catheter noted. 4. Right inguinal hernia containing fat. Pelvis CT 10/13/24 12:52 IMPRESSION: 1. No abscess. Scrotum Ultrasound 10/13/24 12:54 IMPRESSION: 1. Scrotal skin thickening. No abscess. Pelvis Ultrasound 10/13/24 12:56 IMPRESSION: 1. Skin thickening in the left inguinal region, consistent with inflammation. No drainable abscess. Chest X-Ray 10/13/24 15:44 IMPRESSION: 1. Left internal jugular likely tunneled central venous catheter with distal tip at the superior cavoatrial junction. No acute cardiopulmonary disease. 2. Prominent region of amorphous calcific density projecting over the proximal right humerus which could represent material external to the patient or tumoral calcinosis, heterotopic ossification or other dystrophic soft tissue calcification for which there would be a wide differential. Correlate with physical exam and clinical history. Central Venous Line 10/13/24 16:29 IMPRESSION: 1. Fluoroscopy utilized during left internal jugular central venous catheter placement. Labs Labs: Laboratory Tests 10/15/24 05:54 10/15/24 05:54 Calcium 8.6 Phosphorus 7.1 H Magnesium 2.4 H Albumin 3.0 L
[2024-10-15 14:00] VITALS: BP 191/69; PULSE 84; RESP 24; TEMP 35.9; O2SAT 96
[2024-10-15 14:15] VITALS: BP 174/82
--- NOTE | 2024-10-15 14:30 | PM.IMPN ---
Progress Note: A&P Assessment and Plan (1) SBP (spontaneous bacterial peritonitis): Code(s): K65.2 - Spontaneous bacterial peritonitis Status: Acute (2) Acute kidney failure: Code(s): N17.9 - Acute kidney failure, unspecified Status: Acute (3) End stage renal disease: Code(s): N18.6 - End stage renal disease Status: Chronic (4) Obstruction of peritoneal dialysis catheter: Code(s): T85.691A - Other mechanical complication of intraperitoneal dialysis catheter, initial encounter Status: Acute (5) Essential hypertension: Code(s): I10 - Essential (primary) hypertension Status: Acute Plan patient with history of peritoneal dialysis presented with abdominal pain, and elevated white counts suspicious for SBP, ER, office equipment technician was not not able to remove peritoneal fluids for culture, plan was to transfer patient to a tertiary care however speaking with Dr. Gomez, it was decided to monitor overnight and try again in the morning to collect sample. Again dialysis fluid sample was not able to aspirate, urine and blood culture no growth so far, patient is being treated with Cefepime. patient white counts are trending down, on 10/13patient had dialysis catheter placed and had HD, today again patient is having HD and seen in the dialysis center stats, feeling much better and abdominal pain has improve on 10/13 his white counts are trending down, so far his urine and blood culture no growth so far, discussed with Dr. Carbajal, once clinically stable will need to be seen at a tertiary care hospital for further management of his PD catheter. will stop IV pain medication in anticipation of discharge. Subjective Date/time seen: 10/15/24 14:30 Interval history: patient with history of peritoneal dialysis presented with abdominal pain, and elevated white counts suspicious for SBP, ER, office equipment technician was not not able to remove peritoneal fluids for culture, plan was to transfer patient to a tertiary care however speaking with Dr. Goemz, it was decided to monitor overnight and try again in the morning to collect sample. Again dialysis fluid sample was not able to aspirate, urine and blood culture no growth so far, patient is being treated with Cefepime. patient white counts are trending down, on 10/13patient had dialysis catheter placed and had HD, today again patient is having HD and seen in the dialysis center stats, feeling much better and abdominal pain has improve on 10/13 his white counts are trending down, so far his urine and blood culture no growth so far, discussed with Dr. Carbajal, once clinically stable will need to be seen at a tertiary care hospital for further management of his PD catheter. will stop IV pain medication in anticipation of discharge. Review of Systems Review of Systems: As per HPI. Exam Narrative: Patient is comfortable, NAD HEENT: eyes are clear and none icteric LUNGS:CTA HEART: RR S1S2 ABD: BS+, Soft and nontender Lower extremities: no edema SKIN: nonjaundiced Neuro: grossly intact. Objective Data Vital Signs Vital Signs: Vital Signs - 24 hr 10/14/24 14:00 10/14/24 19:41 10/14/24 20:00 Temperature 36.9 C 36.9 C Pulse Rate 111 H 88 88 Respiratory Rate 18 16 16 Blood Pressure 168/93 H 156/83 H Pulse Oximetry 94 94 94 Oxygen Delivery Room Air 10/15/24 04:30 10/15/24 08:15 Temperature 36.6 C Pulse Rate 84 Respiratory Rate 16 Blood Pressure 165/93 H Pulse Oximetry 95 Oxygen Delivery Room Air Intake/Output Intake/Output: Intake & Output 10/12/24 10/13/24 10/14/24 10/16/24 23:59 23:59 23:59 00:59 Intake Total 887 136 7047 1090 Output Total 200 500 Balance 690 496 415 8045 Meds/Results Medications: Active Medications Generic Name Dose Route Start Last Admin Trade Name Freq PRN Reason Stop Dose Admin Hydrocodone Bitart/Acetaminophen 1 tab 10/12/24 10:24 10/15/24 10:18 Hydrocodone/Acetaminophen (*Crx) 5-325 Mg Tablet PO 1 tab Q4H PRN Administration Pain 4-10 Amlodipine Besylate 10 mg 10/12/24 09:00 10/15/24 08:40 Amlodipine Besylate 10 Mg Tablet PO 10 mg DAILY DANA Administration Bupropion HCl 150 mg 10/12/24 09:00 10/15/24 08:40 Bupropion Hcl Xl (24 Hr) 150 Mg Tabcr PO 150 mg QAM DANA Administration Calcitriol 0.25 mcg 10/12/24 09:00 10/15/24 08:40 Calcitriol 0.25 Mcg Capsule PO 0.25 mcg DAILY DANA Administration Calcium Acetate 1,334 mg 10/12/24 17:00 10/15/24 12:36 Calcium Acetate 667 Mg Tablet PO 1,334 mg TIDWM DANA Administration Escitalopram Oxalate 20 mg 10/12/24 09:00 10/15/24 08:47 Escitalopram Oxalate 10 Mg Tablet PO 20 mg DAILY DANA Administration Gentamicin Sulfate 1 applic 10/13/24 09:00 10/15/24 08:57 Gentamicin Sulfate 0.1% Oint 15 Gm Tube TOPICAL Not Given DAILY DANA Cefepime HCl 1 gm in 50 mls @ 100 mls/hr 10/11/24 08:30 10/15/24 08:40 Maxipime 1 Gm/Ns 50 Ml IVPB 100 mls/hr DAILY DANA Administration Albumin Human 50 mls @ 999 mls/hr 10/13/24 12:04 10/13/24 18:08 Albutein IVPB 11/12/24 12:03 Infused Q10M PRN Infusion HYPOTENSION Lactulose 20 gm 10/13/24 09:00 10/15/24 08:41 Lactulose 20 Gm/30 Ml Udc PO 20 gm QAM DANA Administration Metoprolol Succinate 50 mg 10/12/24 09:00 10/15/24 08:40 Metoprolol Succinate Ext Rel 50 Mg Tabcr PO 50 mg QAM DANA Administration Ondansetron HCl 4 mg 10/11/24 08:20 10/15/24 10:18 Ondansetron Inj 4 Mg/2 Ml Vial IV PUSH 4 mg Q4H PRN Administration Nausea Polyethylene Glycol 17 gm 10/12/24 17:00 10/15/24 08:40 Polyethylene Glycol 3350 17 Gm Powd.Pack PO 17 gm BID DANA Administration Sodium Bicarbonate 1,300 mg 10/12/24 09:00 10/15/24 08:40 Sodium Bicarbonate Tab 650 Mg Tablet PO 1,300 mg BID DANA Administration Radiology Results: ITS Impressions Abdomen/Pelvis CT 10/11/24 07:58 IMPRESSION: 1. Small pleural effusion. 2. Mild pelvic lymphadenopathy which may be reactive. 3. Large volume of ascites with peritoneal dialysis catheter noted. 4. Right inguinal hernia containing fat. Pelvis CT 10/13/24 12:52 IMPRESSION: 1. No abscess. Scrotum Ultrasound 10/13/24 12:54 IMPRESSION: 1. Scrotal skin thickening. No abscess. Pelvis Ultrasound 03/07/25 12:56 IMPRESSION: 1. Skin thickening in the left inguinal region, consistent with inflammation. No drainable abscess. Chest X-Ray 10/13/24 15:44 IMPRESSION: 1. Left internal jugular likely tunneled central venous catheter with distal tip at the superior cavoatrial junction. No acute cardiopulmonary disease. 2. Prominent region of amorphous calcific density projecting over the proximal right humerus which could represent material external to the patient or tumoral calcinosis, heterotopic ossification or other dystrophic soft tissue calcification for which there would be a wide differential. Correlate with physical exam and clinical history. Central Venous Line 10/13/24 16:29 IMPRESSION: 1. Fluoroscopy utilized during left internal jugular central venous catheter placement. Labs Labs: Laboratory Results - last 24 hr 10/15/24 05:54 WBC 16.4 H RBC 3.38 L Hgb 8.9 L Hct 30.5 L MCV 90.2 MCH 26.3 MCHC 29.2 L RDW 16.0 H Plt Count 305 MPV 8.5 Sodium 139 Potassium 4.2 Chloride 103 Carbon Dioxide 25 Anion Gap 11 BUN 47 H D Creatinine 6.40 H Estim Creat Clear Calc 14 Estimated GFR 10 L Glucose 108 Calcium 8.6 Phosphorus 7.1 H Magnesium 2.4 H Albumin 3.0 L
[2024-10-15 20:00] VITALS: PULSE 78; RESP 24; O2SAT 96
[2024-10-15 20:58] VITALS: BP 167/87; PULSE 86; RESP 16; TEMP 36.8; O2SAT 97
[2024-10-15 22:56] VITALS: PULSE 78; O2SAT 96
[2024-10-16] VITALS (19 sets, daily range): BP systolic 116–186; BP diastolic 83–103; PULSE 62–100; RESP 16–18; TEMP 36.6–37; O2SAT 93–98
[2024-10-16] MEDS: HYDROcodone/acetaminophen (*CRX) 5-325 MG TABLET 1 TAB PO ×4 (00:03→21:34)
[2024-10-16 06:37] LABS: Hematocrit 27.9 % (42.0-52.0); Hemoglobin 8.2 g/dL (14.0-18.0); Mean Corpuscular HGB Conc 29.4 g/dl (32-36); Mean Corpuscular Hemoglobin 26.6 pg (26-34); Mean Corpuscular Volume 90.6 fl (80-100); Mean Platelet Volume 8.6 fl (7.4-10.4); Platelet Count Result 320 k/mm3 (150-375); Red Blood Count 3.08 M/mm3 (4.6-6.20); Red Cell Distribution Width 15.8 % (11.5-14.5); White Blood Count 17.3 K/mm3 (4.5-10.0)
[2024-10-16 06:47] LABS: Albumin Level 2.9 g/dL (3.5-5.1); Anion Gap 11 mmol/L (4-12); Blood Urea Nitrogen 56 mg/dL (9-20); Calcium 8.7 mg/dL (8.4-10.2); Carbon Dioxide 26 mmol/L (22-30); Chloride 101 mmol/L (98-107); Estimated CRCL calculation 11 ml/min; Estimated Glomerular Filt Rate 7; Glucose 144 mg/dL (65-110); Magnesium 2.5 mg/dL (1.6-2.3); Phosphorus 7.1 mg/dL (2.5-4.5); Potassium 4.2 mmol/L (3.4-5.0); Sodium 138 mmol/L (137-145)
[2024-10-16] MEDS: buPROPion HCL XL (24 HR) 150 MG TABCR PO (09:25)
[2024-10-16] MEDS: ESCITALOPRAM OXALATE 10 MG TABLET 20 MG PO (09:25)
[2024-10-16] MEDS: METOPROLOL SUCCINATE EXT REL 50 MG TABCR PO (09:25)
[2024-10-16] MEDS: calcitrioL 0.25 MCG CAPSULE PO (09:25)
[2024-10-16] MEDS: CEFEPIME 1 GM/NS 50 ML 1 GM/50 ML BAG IVPB (09:25)
[2024-10-16] MEDS: SODIUM BICARBONATE TAB 650 MG TABLET 1300 MG PO ×2 (09:25→17:49)
[2024-10-16] MEDS: CALCIUM ACETATE 667 MG TABLET 1334 MG PO ×2 (09:25→17:49)
[2024-10-16] MEDS: GENTAMICIN SULFATE 0.1% OINT 15 GM TUBE 1 APPLIC TOPICAL (09:26)
[2024-10-16] MEDS: polyethylene glycoL 3350 17 GM POWD.PACK PO ×2 (09:26→17:49)
[2024-10-16] MEDS: LACTULOSE 20 GM/30 ML UDC PO (09:26)
--- NOTE | 2024-10-16 13:42 | PC.NURSE ---
Patient off floor to dialysis via bed.
--- NOTE | 2024-10-16 15:36 | P.PNNP_ITS ---
Progress Note: A&P Assessment and Plan (1) End stage renal disease: Code(s): N18.6 - End stage renal disease Status: Chronic Assessment and Plan: * see #3 * transition to back hemodialysis for now * s/p tunneled HD catheter placement (on 10/13/24) * HD today - continue M/W/F schedule for now * attempts to get PD catheter to work have been unsuccessful (see #3) * follow electrolytes, volume status, and clearance (2) SBP (spontaneous bacterial peritonitis): Code(s): K65.2 - Spontaneous bacterial peritonitis Status: Acute Assessment and Plan: * presumed etiology of admission symptoms * as suggested by history and abdominal pain * abdominal pain similar to previous bouts of peritonitis * elevated WBC noted * patient reports PD fluid looked cloudy and milky * lipase and LFTs normal * results of CT of A/P noted * unable to obtain PD fluid sample for testing to verify this (see #3) * unable to give intraperitoneal antibiotics as well (see #3) * follow blood cultures - negative to date * pain control * follow clinical exam (3) Obstruction of peritoneal dialysis catheter: Code(s): T85.691A - Other mechanical complication of intraperitoneal dialysis catheter, initial encounter Status: Acute Assessment and Plan: * possible inflammation and fibrin formation from peritonitis obstructing PD catheter (?) * however, cannot discount an anatomical issue (although no mention on admission CT scan) * unable to drain or infuse fluid via PD catheter per dialysis nursing * attempts at power flushing PD catheter met with resistance and some abdominal discomfort * will attempt alteplase in PD catheter today and dwell overnight * making sure no issues with constipation (on bowel regimen) * will continue to troubleshoot this issue * temporary/back-up HD for now * suspect will need outpatient evaluation of this issue (4) Hypertension: Qualifiers: Hypertension type: primary hypertension Qualified Code(s): I10 - Essential (primary) hypertension Code(s): I10 - Essential (primary) hypertension Status: Chronic Assessment and Plan: * better control * suspect pain maybe playing a role with higher readings * resume home BP medications...listed outpatient BP medications are incorrect: * home BP medications are nifedipine ER 60mg qday, lisinopril 40mg qday, Toprol XL 100mg qday, and lasix 80mg qday * would slowly resume home medications as tolerated * follow trend of hemodynamics (5) Anemia: Qualifiers: Anemia type: iron deficiency Iron deficiency anemia type: unspecified iron deficiency Qualified Code(s): D50.9 - Iron deficiency anemia, unspecified Code(s): D64.9 - Anemia, unspecified Status: Chronic Assessment and Plan: * due to ESRD * Epogen with HD * follow trend of H/H (6) Diabetes: Qualifiers: Chronic kidney disease stage: stage 5, not on chronic dialysis Diabetes mellitus complication detail: with chronic kidney disease Diabetes mellitus complication status: with kidney complications Diabetes mellitus skilled nursing insulin use: without skilled nursing 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 L Subjective Date/time seen: 10/16/24 15:36 Interval history: Follow-up for end stage renal disease (transitioned to hemodialysis due to PD catheter dysfunction). Tolerating dialysis treatment at the time of my visit (seen on HD at 3:25PM); abdominal pain continues to slowly improve; no apparent distress noted; no issues/events overnight or earlier this morning. Exam 2 Narrative: General: WD/WN male in NAD Heart: RRR, normal S1 and S2; no rub Lungs: clear to auscultation Abdomen: + mild tenderness to palpation; positive bowel sounds Extremities: no cyanosis or clubbing; no edema Skin: warm and dry Objective Data Vital Signs Vital Signs: Vital Signs Temp Pulse Resp BP Pulse Ox O2 Del Method 10/16/24 15:30 81 172/98 H 10/16/24 15:15 86 155/98 H 10/16/24 15:00 88 141/94 H 10/16/24 14:45 100 116/83 10/16/24 14:30 80 169/98 H 10/16/24 14:15 82 173/98 H 10/16/24 14:00 82 172/93 H 10/16/24 13:51 83 166/93 H 10/16/24 13:43 98.2 F 84 18 181/97 H 96 10/16/24 09:25 Room Air 10/16/24 09:25 70 10/16/24 04:45 98.5 F 62 16 168/87 H 98 10/15/24 22:56 78 96 10/15/24 20:58 98.3 F 86 16 167/87 H 97 10/15/24 20:00 78 24 H 96 Room Air Intake/Output Intake/Output: Intake & Output 10/13/24 10/14/24 10/16/24 10/16/24 23:59 23:59 00:59 23:59 Intake Total 450 1320 1620 990 Output Total 200 453 565 0224 Balance 397 637 8968 495 Meds/Results Medications: Active Medications Generic Name Dose Route Start Last Admin Trade Name Freq PRN Reason Stop Dose Admin Hydrocodone Bitart/Acetaminophen 1 tab 10/12/24 10:24 10/16/24 15:11 Hydrocodone/Acetaminophen (*Crx) 5-325 Mg Tablet PO 1 tab Q4H PRN Administration Pain 4-10 Amlodipine Besylate 10 mg 10/12/24 09:00 10/16/24 09:25 Amlodipine Besylate 10 Mg Tablet PO Not Given DAILY DANA Bupropion HCl 150 mg 10/12/24 09:00 10/16/24 09:25 Bupropion Hcl Xl (24 Hr) 150 Mg Tabcr PO 150 mg QAM DANA Administration Calcitriol 0.25 mcg 10/12/24 09:00 10/16/24 09:25 Calcitriol 0.25 Mcg Capsule PO 0.25 mcg DAILY DANA Administration Calcium Acetate 1,334 mg 10/12/24 17:00 10/16/24 17:49 Calcium Acetate 667 Mg Tablet PO 1,334 mg TIDWM DANA Administration Epoetin [place]-epbx 10,000 units 10/16/24 20:31 10/16/24 16:48 Epoetin [place]-Epbx 10,000 Units/Ml Vial IV PUSH 10/16/24 20:32 10,000 units ONCE ONE Administration Escitalopram Oxalate 20 mg 10/12/24 09:00 10/16/24 09:25 Escitalopram Oxalate 10 Mg Tablet PO 20 mg DAILY DANA Administration Gentamicin Sulfate 1 applic 10/13/24 09:00 10/16/24 09:26 Gentamicin Sulfate 0.1% Oint 15 Gm Tube TOPICAL 1 applic DAILY DANA Administration Cefepime HCl 1 gm in 50 mls @ 100 mls/hr 10/11/24 08:30 10/16/24 09:55 Maxipime 1 Gm/Ns 50 Ml IVPB Infused DAILY DANA Infusion Albumin Human 50 mls @ 999 mls/hr 10/13/24 12:04 10/13/24 18:08 Albutein IVPB 11/12/24 12:03 Infused Q10M PRN Infusion HYPOTENSION Lactulose 20 gm 10/13/24 09:00 10/16/24 09:26 Lactulose 20 Gm/30 Ml Udc PO 20 gm QAM DANA Administration Metoprolol Succinate 50 mg 10/12/24 09:00 10/16/24 09:25 Metoprolol Succinate Ext Rel 50 Mg Tabcr PO 50 mg QAM DANA Administration Ondansetron HCl 4 mg 10/11/24 08:20 10/15/24 10:18 Ondansetron Inj 4 Mg/2 Ml Vial IV PUSH 4 mg Q4H PRN Administration Nausea Polyethylene Glycol 17 gm 10/12/24 17:00 10/16/24 17:49 Polyethylene Glycol 3350 17 Gm Powd.Pack PO 17 gm BID DANA Administration Sodium Bicarbonate 1,300 mg 10/12/24 09:00 10/16/24 17:49 Sodium Bicarbonate Tab 650 Mg Tablet PO 1,300 mg BID DANA Administration Radiology Results: ITS Impressions Abdomen/Pelvis CT 10/11/24 07:58 IMPRESSION: 1. Small pleural effusion. 2. Mild pelvic lymphadenopathy which may be reactive. 3. Large volume of ascites with peritoneal dialysis catheter noted. 4. Right inguinal hernia containing fat. Pelvis CT 10/13/24 12:52 IMPRESSION: 1. No abscess. Scrotum Ultrasound 10/13/24 12:54 IMPRESSION: 1. Scrotal skin thickening. No abscess. Pelvis Ultrasound 10/13/24 12:56 IMPRESSION: 1. Skin thickening in the left inguinal region, consistent with inflammation. No drainable abscess. Chest X-Ray 10/13/24 15:44 IMPRESSION: 1. Left internal jugular likely tunneled central venous catheter with distal tip at the superior cavoatrial junction. No acute cardiopulmonary disease. 2. Prominent region of amorphous calcific density projecting over the proximal right humerus which could represent material external to the patient or tumoral calcinosis, heterotopic ossification or other dystrophic soft tissue calcification for which there would be a wide differential. Correlate with physical exam and clinical history. Central Venous Line 10/13/24 16:29 IMPRESSION: 1. Fluoroscopy utilized during left internal jugular central venous catheter placement. Abdomen X-Ray 10/15/24 18:50 IMPRESSION: Peritoneal dialysis catheter, coil projecting over the right pelvis. Paucity of small bowel gas. Hepatomegaly. Ascites. Labs Labs: Laboratory Tests 10/16/24 06:06 10/16/24 06:06 Calcium 8.7 Phosphorus 7.1 H Magnesium 2.5 H Albumin 2.9 L
--- NOTE | 2024-10-16 16:31 | PM.IMPN ---
Progress Note: A&P Assessment and Plan (1) SBP (spontaneous bacterial peritonitis): Code(s): K65.2 - Spontaneous bacterial peritonitis Status: Acute (2) Acute kidney failure: Code(s): N17.9 - Acute kidney failure, unspecified Status: Acute (3) End stage renal disease: Code(s): N18.6 - End stage renal disease Status: Chronic (4) Obstruction of peritoneal dialysis catheter: Code(s): T85.691A - Other mechanical complication of intraperitoneal dialysis catheter, initial encounter Status: Acute (5) Essential hypertension: Code(s): I10 - Essential (primary) hypertension Status: Acute Plan patient with history of peritoneal dialysis presented with abdominal pain, and elevated white counts suspicious for SBP, ER, cephalometric technician was not not able to remove peritoneal fluids for culture, plan was to transfer patient to a tertiary care however speaking with Dr. Gomez, it was decided to monitor overnight and try again in the morning to collect sample. Again dialysis fluid sample was not able to aspirate, urine and blood culture no growth so far, patient is being treated with Cefepime. patient white counts are trending down, on 10/13patient had dialysis catheter placed and had HD, today again patient is having HD and seen in the dialysis center stats, feeling much better and abdominal pain has improve on 10/13 his white counts are trending down, so far his urine and blood culture no growth so far, patient whites are are trending down, discussed with Dr. Carbajal, once clinically stable will need to be seen at a tertiary care hospital for further management of his PD catheter. will stop IV pain medication in anticipation of discharge. Subjective Date/time seen: 10/16/24 16:31 Interval history: patient with history of peritoneal dialysis presented with abdominal pain, and elevated white counts suspicious for SBP, ER, cephalometric technician was not not able to remove peritoneal fluids for culture, plan was to transfer patient to a tertiary care however speaking with Dr. Gomez, it was decided to monitor overnight and try again in the morning to collect sample. Again dialysis fluid sample was not able to aspirate, urine and blood culture no growth so far, patient is being treated with Cefepime. patient white counts are trending down, on 10/13patient had dialysis catheter placed and had HD, today again patient is having HD and seen in the dialysis center stats, feeling much better and abdominal pain has improve on 10/13 his white counts are trending down, so far his urine and blood culture no growth so far, patient whites are are trending down, discussed with Dr. Carbajal, once clinically stable will need to be seen at a tertiary care hospital for further management of his PD catheter. will stop IV pain medication in anticipation of discharge. Review of Systems Review of Systems: As per HPI. Exam Narrative: Patient is comfortable, NAD HEENT: eyes are clear and none icteric LUNGS:CTA HEART: RR S1S2 ABD: BS+, Soft and nontender Lower extremities: no edema SKIN: nonjaundiced Neuro: grossly intact. Objective Data Vital Signs Vital Signs: Vital Signs - 24 hr 10/15/24 20:00 10/15/24 20:58 10/15/24 22:56 Temperature 36.8 C Pulse Rate 78 86 78 Respiratory Rate 24 H 16 Blood Pressure 167/87 H Pulse Oximetry 96 97 96 Oxygen Delivery Room Air 10/16/24 04:45 10/16/24 09:25 10/16/24 09:25 Temperature 36.9 C Pulse Rate 62 70 Respiratory Rate 16 Blood Pressure 168/87 H Pulse Oximetry 98 Oxygen Delivery Room Air Intake/Output Intake/Output: Intake & Output 10/13/24 10/14/24 10/16/24 10/16/24 23:59 23:59 00:59 23:59 Intake Total 450 1320 1620 570 Output Total 200 500 253 85 Balance 552 586 6652 485 Meds/Results Medications: Active Medications Generic Name Dose Route Start Last Admin Trade Name Freq PRN Reason Stop Dose Admin Hydrocodone Bitart/Acetaminophen 1 tab 10/12/24 10:24 10/16/24 15:11 Hydrocodone/Acetaminophen (*Crx) 5-325 Mg Tablet PO 1 tab Q4H PRN Administration Pain 4-10 Amlodipine Besylate 10 mg 10/12/24 09:00 10/16/24 09:25 Amlodipine Besylate 10 Mg Tablet PO Not Given DAILY DANA Bupropion HCl 150 mg 10/12/24 09:00 10/16/24 09:25 Bupropion Hcl Xl (24 Hr) 150 Mg Tabcr PO 150 mg QAM DANA Administration Calcitriol 0.25 mcg 10/12/24 09:00 10/16/24 09:25 Calcitriol 0.25 Mcg Capsule PO 0.25 mcg DAILY DANA Administration Calcium Acetate 1,334 mg 10/12/24 17:00 10/16/24 12:00 Calcium Acetate 667 Mg Tablet PO Not Given TIDWM DANA Epoetin [place]-epbx 10,000 units 10/16/24 20:31 Epoetin [place]-Epbx 10,000 Units/Ml Vial IV PUSH 10/16/24 20:32 ONCE ONE Escitalopram Oxalate 20 mg 10/12/24 09:00 10/16/24 09:25 Escitalopram Oxalate 10 Mg Tablet PO 20 mg DAILY DANA Administration Gentamicin Sulfate 1 applic 10/13/24 09:00 10/16/24 09:26 Gentamicin Sulfate 0.1% Oint 15 Gm Tube TOPICAL 1 applic DAILY DANA Administration Cefepime HCl 1 gm in 50 mls @ 100 mls/hr 10/11/24 08:30 10/16/24 09:55 Maxipime 1 Gm/Ns 50 Ml IVPB Infused DAILY DANA Infusion Albumin Human 50 mls @ 999 mls/hr 10/13/24 12:04 10/13/24 18:08 Albutein IVPB 11/12/24 12:03 Infused Q10M PRN Infusion HYPOTENSION Lactulose 20 gm 10/13/24 09:00 10/16/24 09:26 Lactulose 20 Gm/30 Ml Udc PO 20 gm QAM DANA Administration Metoprolol Succinate 50 mg 10/12/24 09:00 10/16/24 09:25 Metoprolol Succinate Ext Rel 50 Mg Tabcr PO 50 mg QAM DANA Administration Ondansetron HCl 4 mg 10/11/24 08:20 10/15/24 10:18 Ondansetron Inj 4 Mg/2 Ml Vial IV PUSH 4 mg Q4H PRN Administration Nausea Polyethylene Glycol 17 gm 10/12/24 17:00 10/16/24 09:26 Polyethylene Glycol 3350 17 Gm Powd.Pack PO 17 gm BID DANA Administration Sodium Bicarbonate 1,300 mg 10/12/24 09:00 10/16/24 09:25 Sodium Bicarbonate Tab 650 Mg Tablet PO 1,300 mg BID DANA Administration Radiology Results: ITS Impressions Abdomen/Pelvis CT 10/11/24 07:58 IMPRESSION: 1. Small pleural effusion. 2. Mild pelvic lymphadenopathy which may be reactive. 3. Large volume of ascites with peritoneal dialysis catheter noted. 4. Right inguinal hernia containing fat. Pelvis CT 10/13/24 12:52 IMPRESSION: 1. No abscess. Scrotum Ultrasound 10/13/24 12:54 IMPRESSION: 1. Scrotal skin thickening. No abscess. Pelvis Ultrasound 10/13/24 12:56 IMPRESSION: 1. Skin thickening in the left inguinal region, consistent with inflammation. No drainable abscess. Chest X-Ray 10/13/24 15:44 IMPRESSION: 1. Left internal jugular likely tunneled central venous catheter with distal tip at the superior cavoatrial junction. No acute cardiopulmonary disease. 2. Prominent region of amorphous calcific density projecting over the proximal right humerus which could represent material external to the patient or tumoral calcinosis, heterotopic ossification or other dystrophic soft tissue calcification for which there would be a wide differential. Correlate with physical exam and clinical history. Central Venous Line 10/13/24 16:29 IMPRESSION: 1. Fluoroscopy utilized during left internal jugular central venous catheter placement. Abdomen X-Ray 10/15/24 18:50 IMPRESSION: Peritoneal dialysis catheter, coil projecting over the right pelvis. Paucity of small bowel gas. Hepatomegaly. Ascites. Labs Labs: Laboratory Results - last 24 hr 10/16/24 06:06 WBC 17.3 H RBC 3.08 L Hgb 8.2 L Hct 27.9 L MCV 90.6 MCH 26.6 MCHC 29.4 L RDW 15.8 H Plt Count 320 MPV 8.6 Sodium 138 Potassium 4.2 Chloride 101 Carbon Dioxide 26 Anion Gap 11 BUN 56 H Creatinine 7.97 H Estim Creat Clear Calc 11 Estimated GFR 7 L Glucose 144 H Calcium 8.7 Phosphorus 7.1 H Magnesium 2.5 H Albumin 2.9 L
[2024-10-16] MEDS: EPOETIN ALFA-EPBX 10,000 UNITS/ML VIAL 10000 UNITS IV PUSH (16:48)
--- NOTE | 2024-10-16 17:35 | PC.NURSE ---
Patient returned to floor via bed from dialysis unit.
[2024-10-17] MEDS: HYDROcodone/acetaminophen (*CRX) 5-325 MG TABLET 1 TAB PO ×4 (05:25→22:08)
[2024-10-17 06:00] VITALS: BP 174/82; PULSE 82; RESP 20; TEMP 36.8; O2SAT 95
[2024-10-17 06:27] LABS: Hematocrit 29.1 % (42.0-52.0); Hemoglobin 8.4 g/dL (14.0-18.0); Mean Corpuscular HGB Conc 28.9 g/dl (32-36); Mean Corpuscular Hemoglobin 26.4 pg (26-34); Mean Corpuscular Volume 91.5 fl (80-100); Mean Platelet Volume 8.6 fl (7.4-10.4); Platelet Count Result 302 k/mm3 (150-375); Red Blood Count 3.18 M/mm3 (4.6-6.20); Red Cell Distribution Width 15.7 % (11.5-14.5); White Blood Count 18.7 K/mm3 (4.5-10.0)
[2024-10-17 06:39] LABS: Anion Gap 10 mmol/L (4-12); Blood Urea Nitrogen 39 mg/dL (9-20); Calcium 9.3 mg/dL (8.4-10.2); Carbon Dioxide 23 mmol/L (22-30); Chloride 103 mmol/L (98-107); Estimated CRCL calculation 15 ml/min; Estimated Glomerular Filt Rate 11; Glucose 129 mg/dL (65-110); Magnesium 2.5 mg/dL (1.6-2.3); Phosphorus 6.6 mg/dL (2.5-4.5); Potassium 4.5 mmol/L (3.4-5.0); Sodium 136 mmol/L (137-145)
[2024-10-17 08:36] VITALS: PULSE 88
[2024-10-17] MEDS: buPROPion HCL XL (24 HR) 150 MG TABCR PO (08:36)
[2024-10-17] MEDS: CEFEPIME 1 GM/NS 50 ML 1 GM/50 ML BAG IVPB (08:36)
[2024-10-17] MEDS: METOPROLOL SUCCINATE EXT REL 50 MG TABCR PO (08:36)
[2024-10-17] MEDS: amLODIPine BESYLATE 10 MG TABLET PO (08:36)
[2024-10-17] MEDS: CALCIUM ACETATE 667 MG TABLET 1334 MG PO ×3 (08:36→17:11)
[2024-10-17] MEDS: GENTAMICIN SULFATE 0.1% OINT 15 GM TUBE 1 APPLIC TOPICAL (08:36)
[2024-10-17] MEDS: LACTULOSE 20 GM/30 ML UDC PO (08:36)
[2024-10-17] MEDS: ESCITALOPRAM OXALATE 10 MG TABLET 20 MG PO (08:36)
[2024-10-17] MEDS: polyethylene glycoL 3350 17 GM POWD.PACK PO ×2 (08:36→17:11)
[2024-10-17] MEDS: calcitrioL 0.25 MCG CAPSULE PO (08:36)
--- NOTE | 2024-10-17 10:51 | P.PNNP_ITS ---
Progress Note: A&P Assessment and Plan (1) End stage renal disease: Code(s): N18.6 - End stage renal disease Status: Chronic Assessment and Plan: * see #3 * transition to back hemodialysis for now * s/p tunneled HD catheter placement (on 10/13/24) * HD tomorrow - continue M/W/F schedule for now until output HD schedule finalized * attempts to get PD catheter to work have been unsuccessful (see #3) * follow electrolytes, volume status, and clearance (2) SBP (spontaneous bacterial peritonitis): Code(s): K65.2 - Spontaneous bacterial peritonitis Status: Acute Assessment and Plan: * presumed etiology of admission symptoms * as suggested by history and abdominal pain * abdominal pain similar to previous bouts of peritonitis * elevated WBC noted * patient reports PD fluid looked cloudy and milky * lipase and LFTs normal * results of CT of A/P noted * unable to obtain PD fluid sample for testing to verify this (see #3) * unable to give intraperitoneal antibiotics as well (see #3) * follow blood cultures - negative to date * pain control * follow clinical exam (3) Obstruction of peritoneal dialysis catheter: Code(s): T85.691A - Other mechanical complication of intraperitoneal dialysis catheter, initial encounter Status: Acute Assessment and Plan: * possible inflammation and fibrin formation from peritonitis obstructing PD catheter (?) * however, cannot discount an anatomical issue (although no mention on admission CT scan) * unable to drain or infuse fluid via PD catheter per dialysis nursing * attempts at power flushing PD catheter met with resistance and some abdominal discomfort * will attempt alteplase in PD catheter today and dwell overnight * making sure no issues with constipation (on bowel regimen) * will continue to troubleshoot this issue * temporary/back-up HD for now * suspect will need outpatient evaluation of this issue (4) Hypertension: Qualifiers: Hypertension type: primary hypertension Qualified Code(s): I10 - Essential (primary) hypertension Code(s): I10 - Essential (primary) hypertension Status: Chronic Assessment and Plan: * better control * suspect pain maybe playing a role with higher readings * resume home BP medications...listed outpatient BP medications are incorrect: * home BP medications are nifedipine ER 60mg qday, lisinopril 40mg qday, Toprol XL 100mg qday, and lasix 80mg qday * would slowly resume home medications as tolerated * follow trend of hemodynamics (5) Anemia: Qualifiers: Anemia type: iron deficiency Iron deficiency anemia type: unspecified iron deficiency Qualified Code(s): D50.9 - Iron deficiency anemia, unspecified Code(s): D64.9 - Anemia, unspecified Status: Chronic Assessment and Plan: * due to ESRD * Epogen with HD * follow trend of H/H (6) Diabetes: Qualifiers: Chronic kidney disease stage: stage 5, not on chronic dialysis Diabetes mellitus complication detail: with chronic kidney disease Diabetes mellitus complication status: with kidney complications Diabetes mellitus continuous churn buttermaker insulin use: without continuous churn buttermaker 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 L Subjective Date/time seen: 10/17/24 10:51 Interval history: Follow-up for end stage renal disease (transitioned to hemodialysis due to PD catheter dysfunction). Tolerated dialysis treatment yesterday without any issue or problems; minimal abdominal pain noted at this time; overall, feels reasonably well; no other acute complaints voiced currently. Exam 2 Narrative: General: WD/WN male in NAD Heart: RRR, normal S1 and S2; no rub Lungs: clear to auscultation Abdomen: soft, minor discomfort with palpation; positive bowel sounds Extremities: no cyanosis or clubbing; no edema Skin: warm and intact Objective Data Vital Signs Vital Signs: Vital Signs Temp Pulse Resp BP Pulse Ox O2 Del Method FiO2 10/17/24 08:36 88 10/17/24 08:35 Room Air 10/17/24 06:00 98.2 F 82 20 174/82 H 95 10/16/24 22:45 93 Room Air 21 10/16/24 22:00 97.9 F 81 18 177/87 H 95 10/16/24 19:02 98 F 88 18 174/101 H 96 10/16/24 16:53 90 166/99 H 10/16/24 16:45 92 186/98 H 10/16/24 16:15 94 160/99 H 10/16/24 16:00 90 157/97 H 10/16/24 15:45 83 159/103 H 10/16/24 15:30 81 172/98 H 10/16/24 15:15 86 155/98 H 10/16/24 15:00 88 141/94 H 10/16/24 14:45 100 116/83 10/16/24 14:30 80 169/98 H 10/16/24 14:15 82 173/98 H 10/16/24 14:00 82 172/93 H 10/16/24 13:51 83 166/93 H 10/16/24 13:43 98.2 F 84 18 181/97 H 96 Intake/Output Intake/Output: Intake & Output 10/14/24 10/16/24 10/16/24 10/17/24 23:59 00:59 23:59 23:59 Intake Total 1320 1620 990 440 Output Total 141 813 8263 Balance 820 1367 -495 440 Meds/Results Medications: Active Medications Generic Name Dose Route Start Last Admin Trade Name Freq PRN Reason Stop Dose Admin Hydrocodone Bitart/Acetaminophen 1 tab 10/12/24 10:24 10/17/24 12:02 Hydrocodone/Acetaminophen (*Crx) 5-325 Mg Tablet PO 1 tab Q4H PRN Administration Pain 4-10 Amlodipine Besylate 10 mg 10/12/24 09:00 10/17/24 08:36 Amlodipine Besylate 10 Mg Tablet PO 10 mg DAILY DANA Administration Bupropion HCl 150 mg 10/12/24 09:00 10/17/24 08:36 Bupropion Hcl Xl (24 Hr) 150 Mg Tabcr PO 150 mg QAM DANA Administration Calcitriol 0.25 mcg 10/12/24 09:00 10/17/24 08:36 Calcitriol 0.25 Mcg Capsule PO 0.25 mcg DAILY DANA Administration Calcium Acetate 1,334 mg 10/12/24 17:00 10/17/24 12:03 Calcium Acetate 667 Mg Tablet PO 1,334 mg TIDWM DANA Administration Escitalopram Oxalate 20 mg 10/12/24 09:00 10/17/24 08:36 Escitalopram Oxalate 10 Mg Tablet PO 20 mg DAILY DANA Administration Gentamicin Sulfate 1 applic 10/13/24 09:00 10/17/24 08:36 Gentamicin Sulfate 0.1% Oint 15 Gm Tube TOPICAL 1 applic DAILY DANA Administration Cefepime HCl 1 gm in 50 mls @ 100 mls/hr 10/11/24 08:30 10/17/24 09:06 Maxipime 1 Gm/Ns 50 Ml IVPB Infused DAILY DANA Infusion Albumin Human 50 mls @ 999 mls/hr 10/13/24 12:04 10/13/24 18:08 Albutein IVPB 11/12/24 12:03 Infused Q10M PRN Infusion HYPOTENSION Lactulose 20 gm 10/13/24 09:00 10/17/24 08:36 Lactulose 20 Gm/30 Ml Udc PO 20 gm QAM DANA Administration Metoprolol Succinate 50 mg 10/12/24 09:00 10/17/24 08:36 Metoprolol Succinate Ext Rel 50 Mg Tabcr PO 50 mg QAM DANA Administration Ondansetron HCl 4 mg 10/11/24 08:20 10/15/24 10:18 Ondansetron Inj 4 Mg/2 Ml Vial IV PUSH 4 mg Q4H PRN Administration Nausea Polyethylene Glycol 17 gm 10/12/24 17:00 10/17/24 08:36 Polyethylene Glycol 3350 17 Gm Powd.Pack PO 17 gm BID DANA Administration Radiology Results: ITS Impressions Abdomen/Pelvis CT 10/11/24 07:58 IMPRESSION: 1. Small pleural effusion. 2. Mild pelvic lymphadenopathy which may be reactive. 3. Large volume of ascites with peritoneal dialysis catheter noted. 4. Right inguinal hernia containing fat. Pelvis CT 10/13/24 12:52 IMPRESSION: 1. No abscess. Scrotum Ultrasound 10/13/24 12:54 IMPRESSION: 1. Scrotal skin thickening. No abscess. Pelvis Ultrasound 10/13/24 12:56 IMPRESSION: 1. Skin thickening in the left inguinal region, consistent with inflammation. No drainable abscess. Chest X-Ray 10/13/24 15:44 IMPRESSION: 1. Left internal jugular likely tunneled central venous catheter with distal tip at the superior cavoatrial junction. No acute cardiopulmonary disease. 2. Prominent region of amorphous calcific density projecting over the proximal right humerus which could represent material external to the patient or tumoral calcinosis, heterotopic ossification or other dystrophic soft tissue calcification for which there would be a wide differential. Correlate with physical exam and clinical history. Central Venous Line 10/13/24 16:29 IMPRESSION: 1. Fluoroscopy utilized during left internal jugular central venous catheter placement. Abdomen X-Ray 10/15/24 18:50 IMPRESSION: Peritoneal dialysis catheter, coil projecting over the right pelvis. Paucity of small bowel gas. Hepatomegaly. Ascites. Labs Labs: Laboratory Tests 10/17/24 06:03 10/17/24 06:03 Calcium 9.3 Phosphorus 6.6 H Magnesium 2.5 H Albumin 3.0 L Microbiology 10/11/24 08:35 Blood Blood Culture - Final 10/11/24 08:52 Blood Blood Culture - Final
[2024-10-17 13:32] VITALS: BP 174/87; PULSE 80; RESP 16; TEMP 36.1; O2SAT 94
--- NOTE | 2024-10-17 16:01 | P.PNIM_ITS ---
Progress Note: A&P Assessment and Plan (1) SBP (spontaneous bacterial peritonitis): Code(s): K65.2 - Spontaneous bacterial peritonitis Status: Acute (2) Acute kidney failure: Code(s): N17.9 - Acute kidney failure, unspecified Status: Acute (3) End stage renal disease: Code(s): N18.6 - End stage renal disease Status: Chronic (4) Obstruction of peritoneal dialysis catheter: Code(s): T85.691A - Other mechanical complication of intraperitoneal dialysis catheter, initial encounter Status: Acute (5) Essential hypertension: Code(s): I10 - Essential (primary) hypertension Status: Acute Plan patient with history of peritoneal dialysis presented with abdominal pain, and elevated white counts suspicious for SBP, ER, telecommunications field technician was not not able to remove peritoneal fluids for culture, plan was to transfer patient to a tertiary care however speaking with Dr. Gomez, it was decided to monitor overnight and try again in the morning to collect sample. Again dialysis fluid sample was not able to aspirate, urine and blood culture no growth so far, patient is being treated with Cefepime. patient white counts are trending down, on 10/13patient had dialysis catheter placed and had HD, today again patient is having HD and seen in the dialysis center stats, feeling much better and abdominal pain has improve on 10/13 his white counts are trending down, so far his urine and blood culture no growth so far, patient whites are are trending down, discussed with Dr. Carbajal, once clinically stable will need to be seen at a tertiary care hospital for further management of his PD catheter. patient clinical symptoms are improving, blood and urine culture not growth so far, today discuss with Dr. Gomez, will discharge patient with schedule HD as outpatient, will stop IV pain medication in anticipation of discharge. Subjective Date/time seen: 10/17/24 16:01 Interval history: patient with history of peritoneal dialysis presented with abdominal pain, and elevated white counts suspicious for SBP, ER, telecommunications field technician was not not able to remove peritoneal fluids for culture, plan was to transfer patient to a tertiary care however speaking with Dr. Gomez, it was decided to monitor overnight and try again in the morning to collect sample. Again dialysis fluid sample was not able to aspirate, urine and blood culture no growth so far, patient is being treated with Cefepime. patient white counts are trending down, on 10/13patient had dialysis catheter placed and had HD, today again patient is having HD and seen in the dialysis center stats, feeling much better and abdominal pain has improve on 10/13 his white counts are trending down, so far his urine and blood culture no growth so far, patient whites are are trending down, discussed with Dr. Carbajal, once clinically stable will need to be seen at a tertiary care hospital for further management of his PD catheter. patient clinical symptoms are improving, blood and urine culture not growth so far, today discuss with Dr. Gomez, will discharge patient with schedule HD as outpatient, will stop IV pain medication in anticipation of discharge. Review of Systems Review of Systems: As per HPI. Exam Narrative: Patient is comfortable, NAD HEENT: eyes are clear and none icteric LUNGS:CTA HEART: RR S1S2 ABD: BS+, Soft and nontender Lower extremities: no edema SKIN: nonjaundiced Neuro: grossly intact. Objective Data Vital Signs Vital Signs: Vital Signs - 24 hr 10/16/24 16:15 10/16/24 16:45 10/16/24 16:53 Temperature Pulse Rate 94 92 90 Respiratory Rate Blood Pressure 160/99 H 186/98 H 166/99 H Pulse Oximetry Oxygen Delivery Fraction of Inspired Oxygen 10/16/24 19:02 10/16/24 22:00 10/16/24 22:45 Temperature 36.6 C 36.6 C Pulse Rate 88 81 Respiratory Rate 18 18 Blood Pressure 174/101 H 177/87 H Pulse Oximetry 96 95 93 Oxygen Delivery Room Air Fraction of Inspired Oxygen 21 10/17/24 06:00 10/17/24 08:35 10/17/24 08:36 Temperature 36.8 C Pulse Rate 82 88 Respiratory Rate 20 Blood Pressure 174/82 H Pulse Oximetry 95 Oxygen Delivery Room Air Fraction of Inspired Oxygen 10/17/24 13:32 Temperature 36.1 C L Pulse Rate 80 Respiratory Rate 16 Blood Pressure 174/87 H Pulse Oximetry 94 Oxygen Delivery Fraction of Inspired Oxygen Intake/Output Intake/Output: Intake & Output 10/14/24 10/16/24 10/16/24 10/17/24 23:59 00:59 23:59 23:59 Intake Total 1320 1620 990 440 Output Total 193 701 0678 Balance 820 1367 -495 440 Meds/Results Medications: Active Medications Generic Name Dose Route Start Last Admin Trade Name Freq PRN Reason Stop Dose Admin Hydrocodone Bitart/Acetaminophen 1 tab 10/12/24 10:24 10/17/24 12:02 Hydrocodone/Acetaminophen (*Crx) 5-325 Mg Tablet PO 1 tab Q4H PRN Administration Pain 4-10 Amlodipine Besylate 10 mg 10/12/24 09:00 10/17/24 08:36 Amlodipine Besylate 10 Mg Tablet PO 10 mg DAILY DANA Administration Bupropion HCl 150 mg 10/12/24 09:00 10/17/24 08:36 Bupropion Hcl Xl (24 Hr) 150 Mg Tabcr PO 150 mg QAM DANA Administration Calcitriol 0.25 mcg 10/12/24 09:00 10/17/24 08:36 Calcitriol 0.25 Mcg Capsule PO 0.25 mcg DAILY DANA Administration Calcium Acetate 1,334 mg 10/12/24 17:00 10/17/24 12:03 Calcium Acetate 667 Mg Tablet PO 1,334 mg TIDWM DANA Administration Escitalopram Oxalate 20 mg 10/12/24 09:00 10/17/24 08:36 Escitalopram Oxalate 10 Mg Tablet PO 20 mg DAILY DANA Administration Gentamicin Sulfate 1 applic 10/13/24 09:00 10/17/24 08:36 Gentamicin Sulfate 0.1% Oint 15 Gm Tube TOPICAL 1 applic DAILY DANA Administration Cefepime HCl 1 gm in 50 mls @ 100 mls/hr 10/11/24 08:30 10/17/24 09:06 Maxipime 1 Gm/Ns 50 Ml IVPB Infused DAILY DANA Infusion Albumin Human 50 mls @ 999 mls/hr 10/13/24 12:04 10/13/24 18:08 Albutein IVPB 11/12/24 12:03 Infused Q10M PRN Infusion HYPOTENSION Lactulose 20 gm 10/13/24 09:00 10/17/24 08:36 Lactulose 20 Gm/30 Ml Udc PO 20 gm QAM DANA Administration Metoprolol Succinate 50 mg 10/12/24 09:00 10/17/24 08:36 Metoprolol Succinate Ext Rel 50 Mg Tabcr PO 50 mg QAM DANA Administration Ondansetron HCl 4 mg 10/11/24 08:20 10/15/24 10:18 Ondansetron Inj 4 Mg/2 Ml Vial IV PUSH 4 mg Q4H PRN Administration Nausea Polyethylene Glycol 17 gm 10/12/24 17:00 10/17/24 08:36 Polyethylene Glycol 3350 17 Gm Powd.Pack PO 17 gm BID DANA Administration Radiology Results: ITS Impressions Abdomen/Pelvis CT 10/11/24 07:58 IMPRESSION: 1. Small pleural effusion. 2. Mild pelvic lymphadenopathy which may be reactive. 3. Large volume of ascites with peritoneal dialysis catheter noted. 4. Right inguinal hernia containing fat. Pelvis CT 10/13/24 12:52 IMPRESSION: 1. No abscess. Scrotum Ultrasound 10/13/24 12:54 IMPRESSION: 1. Scrotal skin thickening. No abscess. Pelvis Ultrasound 10/13/24 12:56 IMPRESSION: 1. Skin thickening in the left inguinal region, consistent with inflammation. No drainable abscess. Chest X-Ray 10/13/24 15:44 IMPRESSION: 1. Left internal jugular likely tunneled central venous catheter with distal tip at the superior cavoatrial junction. No acute cardiopulmonary disease. 2. Prominent region of amorphous calcific density projecting over the proximal right humerus which could represent material external to the patient or tumoral calcinosis, heterotopic ossification or other dystrophic soft tissue calcification for which there would be a wide differential. Correlate with physical exam and clinical history. Central Venous Line 10/13/24 16:29 IMPRESSION: 1. Fluoroscopy utilized during left internal jugular central venous catheter placement. Abdomen X-Ray 10/15/24 18:50 IMPRESSION: Peritoneal dialysis catheter, coil projecting over the right pelvis. Paucity of small bowel gas. Hepatomegaly. Ascites. Labs Labs: Laboratory Results - last 24 hr 10/17/24 06:03 WBC 18.7 H RBC 3.18 L Hgb 8.4 L Hct 29.1 L MCV 91.5 MCH 26.4 MCHC 28.9 L RDW 15.7 H Plt Count 302 MPV 8.6 Sodium 136 L Potassium 4.5 Chloride 103 Carbon Dioxide 23 Anion Gap 10 BUN 39 H D Creatinine 5.88 H Estim Creat Clear Calc 15 Estimated GFR 11 L Glucose 129 H Calcium 9.3 Phosphorus 6.6 H Magnesium 2.5 H Albumin 3.0 L
[2024-10-17 20:40] VITALS: PULSE 79; RESP 20; O2SAT 94
[2024-10-17 22:00] VITALS: BP 169/82; PULSE 79; RESP 20; TEMP 36.7; O2SAT 94
[2024-10-18] VITALS (23 sets, daily range): BP systolic 133–177; BP diastolic 90–110; PULSE 78–93; RESP 14–18; TEMP 36.2–37; O2SAT 94–97
[2024-10-18] MEDS: HYDROcodone/acetaminophen (*CRX) 5-325 MG TABLET 1 TAB PO ×5 (05:00→21:37)
[2024-10-18 06:55] LABS: Hematocrit 29.1 % (42.0-52.0); Hemoglobin 8.6 g/dL (14.0-18.0); Mean Corpuscular HGB Conc 29.6 g/dl (32-36); Mean Corpuscular Hemoglobin 26.6 pg (26-34); Mean Corpuscular Volume 90.1 fl (80-100); Mean Platelet Volume 8.8 fl (7.4-10.4); Platelet Count Result 331 k/mm3 (150-375); Red Blood Count 3.23 M/mm3 (4.6-6.20); Red Cell Distribution Width 15.8 % (11.5-14.5); White Blood Count 20.5 K/mm3 (4.5-10.0)
[2024-10-18 07:15] LABS: Albumin Level 3.1 g/dL (3.5-5.1); Anion Gap 11 mmol/L (4-12); Blood Urea Nitrogen 52 mg/dL (9-20); Calcium 9.6 mg/dL (8.4-10.2); Carbon Dioxide 22 mmol/L (22-30); Chloride 104 mmol/L (98-107); Estimated CRCL calculation 11 ml/min; Estimated Glomerular Filt Rate 8; Glucose 102 mg/dL (65-110); Magnesium 2.5 mg/dL (1.6-2.3); Phosphorus 7.6 mg/dL (2.5-4.5); Potassium 5.1 mmol/L (3.4-5.0); Sodium 137 mmol/L (137-145)
[2024-10-18] MEDS: ESCITALOPRAM OXALATE 10 MG TABLET 20 MG PO (08:53)
[2024-10-18] MEDS: CEFEPIME 1 GM/NS 50 ML 1 GM/50 ML BAG IVPB (08:54)
[2024-10-18] MEDS: calcitrioL 0.25 MCG CAPSULE PO (08:54)
[2024-10-18] MEDS: LACTULOSE 20 GM/30 ML UDC PO (08:54)
[2024-10-18] MEDS: buPROPion HCL XL (24 HR) 150 MG TABCR PO (08:54)
[2024-10-18] MEDS: CALCIUM ACETATE 667 MG TABLET 1334 MG PO ×2 (08:54→17:35)
[2024-10-18] MEDS: GENTAMICIN SULFATE 0.1% OINT 15 GM TUBE 1 APPLIC TOPICAL (08:54)
[2024-10-18] MEDS: polyethylene glycoL 3350 17 GM POWD.PACK PO ×2 (08:54→17:35)
[2024-10-18] MEDS: METOPROLOL SUCCINATE EXT REL 50 MG TABCR PO (08:54)
[2024-10-18] MEDS: amLODIPine BESYLATE 10 MG TABLET PO (08:54)
[2024-10-18 09:49] LABS: Hepatitis B Core Ab Total NON-REACTIVE (NON-REACTIVE)
--- NOTE | 2024-10-18 13:16 | PC.NURSE ---
Patient off floor to dialysis via bed.
--- NOTE | 2024-10-18 13:26 | PCNWS ---
Weekly nutritional screen. Patient is tolerating current Renal diet with adequate intake, 75-100%. No weight loss reported. No nutritional needs at this time.
--- NOTE | 2024-10-18 14:15 | P.PNNP_ITS ---
Progress Note: A&P Assessment and Plan (1) End stage renal disease: Code(s): N18.6 - End stage renal disease Status: Chronic Assessment and Plan: * see #3 * transition to back hemodialysis for now * s/p tunneled HD catheter placement (on 10/13/24) * HD today - continue M/W/F schedule for now until output HD schedule finalized * attempts to get PD catheter to work have been unsuccessful (see #3) * follow electrolytes, volume status, and clearance (2) SBP (spontaneous bacterial peritonitis): Code(s): K65.2 - Spontaneous bacterial peritonitis Status: Acute Assessment and Plan: * presumed etiology of admission symptoms * as suggested by history and abdominal pain * abdominal pain similar to previous bouts of peritonitis * elevated WBC noted * patient reports PD fluid looked cloudy and milky * lipase and LFTs normal * results of CT of A/P noted * unable to obtain PD fluid sample for testing to verify this (see #3) * unable to give intraperitoneal antibiotics as well (see #3) * follow blood cultures - negative to date * pain control * follow clinical exam (3) Obstruction of peritoneal dialysis catheter: Code(s): T85.691A - Other mechanical complication of intraperitoneal dialysis catheter, initial encounter Status: Acute Assessment and Plan: * possible inflammation and fibrin formation from peritonitis obstructing PD catheter (?) * however, cannot discount an anatomical issue (although no mention on admission CT scan) * unable to drain or infuse fluid via PD catheter per dialysis nursing * attempts at power flushing PD catheter met with resistance and some abdominal discomfort * will attempt alteplase in PD catheter today and dwell overnight * making sure no issues with constipation (on bowel regimen) * will continue to troubleshoot this issue * temporary/back-up HD for now * suspect will need outpatient evaluation of this issue (4) Hypertension: Qualifiers: Hypertension type: primary hypertension Qualified Code(s): I10 - Essential (primary) hypertension Code(s): I10 - Essential (primary) hypertension Status: Chronic Assessment and Plan: * better control * suspect pain maybe playing a role with higher readings * resume home BP medications...listed outpatient BP medications are incorrect: * home BP medications are nifedipine ER 60mg qday, lisinopril 40mg qday, Toprol XL 100mg qday, and lasix 80mg qday * would slowly resume home medications as tolerated * follow trend of hemodynamics (5) Anemia: Qualifiers: Anemia type: iron deficiency Iron deficiency anemia type: unspecified iron deficiency Qualified Code(s): D50.9 - Iron deficiency anemia, unspecified Code(s): D64.9 - Anemia, unspecified Status: Chronic Assessment and Plan: * due to ESRD * Epogen with HD * follow trend of H/H (6) Diabetes: Qualifiers: Chronic kidney disease stage: stage 5, not on chronic dialysis Diabetes mellitus complication detail: with chronic kidney disease Diabetes mellitus complication status: with kidney complications Diabetes mellitus assistant terminal manager insulin use: without assistant terminal manager 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 L Subjective Date/time seen: 10/18/24 14:15 Interval history: Follow-up for end stage renal disease (transitioned to hemodialysis due to PD catheter dysfunction). Tolerating dialysis treatment at the time if my visit (seen on HD at 2:05PM); minimal abdominal pain noted at this time; no issues/events overnight or earlier this morning; no other concerns voiced. Exam 2 Narrative: General: WD/WN male in NAD Heart: RRR, normal S1 and S2; no rub Lungs: clear to auscultation Abdomen: soft, minor discomfort with palpation; positive bowel sounds Extremities: no cyanosis or clubbing; no edema Skin: no rash Objective Data Vital Signs Vital Signs: Vital Signs Temp Pulse Resp BP Pulse Ox O2 Del Method FiO2 10/18/24 14:15 78 160/92 H 10/18/24 14:00 78 169/97 H 10/18/24 13:45 80 172/109 H 10/18/24 13:30 79 168/98 H 10/18/24 13:24 78 170/96 H 10/18/24 13:15 97.3 F L 80 16 177/94 H 97 10/18/24 08:55 Room Air 10/18/24 08:54 78 10/18/24 06:00 97.9 F 78 16 173/91 H 96 10/17/24 22:00 98.1 F 79 20 169/82 H 94 10/17/24 20:40 79 20 94 Room Air 21 Intake/Output Intake/Output: Intake & Output 10/16/24 10/16/24 10/17/24 10/18/24 00:59 23:59 23:59 23:59 Intake Total 1620 990 560 730 Output Total 253 1485 Balance 1367 -495 560 730 Meds/Results Medications: Active Medications Generic Name Dose Route Start Last Admin Trade Name Freq PRN Reason Stop Dose Admin Hydrocodone Bitart/Acetaminophen 1 tab 10/12/24 10:24 10/18/24 13:15 Hydrocodone/Acetaminophen (*Crx) 5-325 Mg Tablet PO 1 tab Q4H PRN Administration Pain 4-10 Amlodipine Besylate 10 mg 10/12/24 09:00 10/18/24 08:54 Amlodipine Besylate 10 Mg Tablet PO 10 mg DAILY DANA Administration Amoxicillin/Clavulanate Potassium 1 tablet 10/19/24 09:00 Amoxicillin/Clavulanate K 500-125 Mg Tab PO 10/20/24 21:01 Q12HR DANA Bupropion HCl 150 mg 10/12/24 09:00 10/18/24 08:54 Bupropion Hcl Xl (24 Hr) 150 Mg Tabcr PO 150 mg QAM DANA Administration Calcitriol 0.25 mcg 10/12/24 09:00 10/18/24 08:54 Calcitriol 0.25 Mcg Capsule PO 0.25 mcg DAILY DANA Administration Calcium Acetate 1,334 mg 10/12/24 17:00 10/18/24 11:41 Calcium Acetate 667 Mg Tablet PO Not Given TIDWM [facility] Epoetin Austin-epbx 10,000 units 10/18/24 18:26 Epoetin [place]-Epbx 10,000 Units/Ml Vial IV PUSH 10/18/24 18:27 ONCE ONE Escitalopram Oxalate 20 mg 10/12/24 09:00 10/18/24 08:53 Escitalopram Oxalate 10 Mg Tablet PO 20 mg DAILY DANA Administration Gentamicin Sulfate 1 applic 10/13/24 09:00 10/18/24 08:54 Gentamicin Sulfate 0.1% Oint 15 Gm Tube TOPICAL 1 applic DAILY DANA Administration Albumin Human 50 mls @ 999 mls/hr 10/13/24 12:04 10/13/24 18:08 Albutein IVPB 11/12/24 12:03 Infused Q10M PRN Infusion HYPOTENSION Lactulose 20 gm 10/13/24 09:00 10/18/24 08:54 Lactulose 20 Gm/30 Ml Udc PO 20 gm QAM DANA Administration Metoprolol Succinate 50 mg 10/12/24 09:00 10/18/24 08:54 Metoprolol Succinate Ext Rel 50 Mg Tabcr PO 50 mg QAM DANA Administration Ondansetron HCl 4 mg 10/11/24 08:20 10/15/24 10:18 Ondansetron Inj 4 Mg/2 Ml Vial IV PUSH 4 mg Q4H PRN Administration Nausea Polyethylene Glycol 17 gm 10/12/24 17:00 10/18/24 08:54 Polyethylene Glycol 3350 17 Gm Powd.Pack PO 17 gm BID DANA Administration Radiology Results: ITS Impressions Abdomen/Pelvis CT 10/11/24 07:58 IMPRESSION: 1. Small pleural effusion. 2. Mild pelvic lymphadenopathy which may be reactive. 3. Large volume of ascites with peritoneal dialysis catheter noted. 4. Right inguinal hernia containing fat. Pelvis CT 10/13/24 12:52 IMPRESSION: 1. No abscess. Scrotum Ultrasound 10/13/24 12:54 IMPRESSION: 1. Scrotal skin thickening. No abscess. Pelvis Ultrasound 10/13/24 12:56 IMPRESSION: 1. Skin thickening in the left inguinal region, consistent with inflammation. No drainable abscess. Chest X-Ray 10/13/24 15:44 IMPRESSION: 1. Left internal jugular likely tunneled central venous catheter with distal tip at the superior cavoatrial junction. No acute cardiopulmonary disease. 2. Prominent region of amorphous calcific density projecting over the proximal right humerus which could represent material external to the patient or tumoral calcinosis, heterotopic ossification or other dystrophic soft tissue calcification for which there would be a wide differential. Correlate with physical exam and clinical history. Central Venous Line 10/13/24 16:29 IMPRESSION: 1. Fluoroscopy utilized during left internal jugular central venous catheter placement. Abdomen X-Ray 10/15/24 18:50 IMPRESSION: Peritoneal dialysis catheter, coil projecting over the right pelvis. Paucity of small bowel gas. Hepatomegaly. Ascites. Labs Labs: Laboratory Tests 10/18/24 06:44 10/18/24 06:44 Calcium 9.6 Phosphorus 7.6 H Magnesium 2.5 H Albumin 3.1 L
--- NOTE | 2024-10-18 15:58 | PM.IMPN ---
Progress Note: A&P Assessment and Plan (1) SBP (spontaneous bacterial peritonitis): Code(s): K65.2 - Spontaneous bacterial peritonitis Status: Acute (2) Acute kidney failure: Code(s): N17.9 - Acute kidney failure, unspecified Status: Acute (3) End stage renal disease: Code(s): N18.6 - End stage renal disease Status: Chronic (4) Obstruction of peritoneal dialysis catheter: Code(s): T85.691A - Other mechanical complication of intraperitoneal dialysis catheter, initial encounter Status: Acute (5) Essential hypertension: Code(s): I10 - Essential (primary) hypertension Status: Acute Plan patient with history of peritoneal dialysis presented with abdominal pain, and elevated white counts suspicious for SBP, ER, geotechnical engineering technician was not not able to remove peritoneal fluids for culture, plan was to transfer patient to a tertiary care however speaking with Dr. Gomez, it was decided to monitor overnight and try again in the morning to collect sample. Again dialysis fluid sample was not able to aspirate, urine and blood culture no growth so far, patient is being treated with Cefepime. patient white counts are trending down, on 10/13patient had dialysis catheter placed and had HD, today again patient is having HD and seen in the dialysis center stats, feeling much better and abdominal pain has improve on 10/13 his white counts are trending down, so far his urine and blood culture no growth so far, patient whites are are trending down, discussed with Dr. Carbajal, once clinically stable will need to be seen at a tertiary care hospital for further management of his PD catheter. patient clinical symptoms are improving, blood and urine culture not growth so far, on 10/[address] Gomez, will discharge patient with schedule HD as outpatient, patient is waiting for hepatatis B panel result, will stop IV pain medication in anticipation of discharge. patient will have HD today, may discharge patient tomorrow. Subjective Date/time seen: 10/18/24 15:58 Interval history: patient with history of peritoneal dialysis presented with abdominal pain, and elevated white counts suspicious for SBP, ER, geotechnical engineering technician was not not able to remove peritoneal fluids for culture, plan was to transfer patient to a tertiary care however speaking with Dr. Gomez, it was decided to monitor overnight and try again in the morning to collect sample. Again dialysis fluid sample was not able to aspirate, urine and blood culture no growth so far, patient is being treated with Cefepime. patient white counts are trending down, on 10/13patient had dialysis catheter placed and had HD, today again patient is having HD and seen in the dialysis center stats, feeling much better and abdominal pain has improve on 10/13 his white counts are trending down, so far his urine and blood culture no growth so far, patient whites are are trending down, discussed with Dr. Carbajal, once clinically stable will need to be seen at a tertiary care hospital for further management of his PD catheter. patient clinical symptoms are improving, blood and urine culture not growth so far, on 10/[address] Gomez, will discharge patient with schedule HD as outpatient, patient is waiting for hepatatis B panel result, will stop IV pain medication in anticipation of discharge. patient will have HD today, may discharge patient tomorrow. Review of Systems Review of Systems: As per HPI. Exam Narrative: Patient is comfortable, NAD HEENT: eyes are clear and none icteric LUNGS:CTA HEART: RR S1S2 ABD: BS+, Soft and nontender Lower extremities: no edema SKIN: nonjaundiced Neuro: grossly intact. Objective Data Vital Signs Vital Signs: Vital Signs - 24 hr 10/17/24 20:40 10/17/24 22:00 10/18/24 06:00 Temperature 36.7 C 36.6 C Pulse Rate 79 79 78 Respiratory Rate 20 20 16 Blood Pressure 169/82 H 173/91 H Pulse Oximetry 94 94 96 Oxygen Delivery Room Air Fraction of Inspired Oxygen 21 10/18/24 08:54 10/18/24 08:55 10/18/24 13:15 Temperature 36.3 C L Pulse Rate 78 80 Respiratory Rate 16 Blood Pressure 177/94 H Pulse Oximetry 97 Oxygen Delivery Room Air Fraction of Inspired Oxygen 10/18/24 13:24 10/18/24 13:30 10/18/24 13:45 Temperature Pulse Rate 78 79 80 Respiratory Rate Blood Pressure 170/96 H 168/98 H 172/109 H Pulse Oximetry Oxygen Delivery Fraction of Inspired Oxygen 10/18/24 14:00 10/18/24 14:15 10/18/24 14:30 Temperature Pulse Rate 78 78 79 Respiratory Rate Blood Pressure 169/97 H 160/92 H 166/97 H Pulse Oximetry Oxygen Delivery Fraction of Inspired Oxygen 10/18/24 14:45 10/18/24 15:00 10/18/24 15:15 Temperature Pulse Rate 80 80 92 Respiratory Rate Blood Pressure 167/95 H 133/110 H 158/94 H Pulse Oximetry Oxygen Delivery Fraction of Inspired Oxygen Intake/Output Intake/Output: Intake & Output 10/16/24 10/16/24 10/17/24 10/18/24 00:59 23:59 23:59 23:59 Intake Total 1620 990 560 730 Output Total 253 1485 Balance 1367 -495 560 730 Meds/Results Medications: Active Medications Generic Name Dose Route Start Last Admin Trade Name Freq PRN Reason Stop Dose Admin Hydrocodone Bitart/Acetaminophen 1 tab 10/12/24 10:24 10/18/24 13:15 Hydrocodone/Acetaminophen (*Crx) 5-325 Mg Tablet PO 1 tab Q4H PRN Administration Pain 4-10 Amlodipine Besylate 10 mg 10/12/24 09:00 10/18/24 08:54 Amlodipine Besylate 10 Mg Tablet PO 10 mg DAILY DANA Administration Amoxicillin/Clavulanate Potassium 1 tablet 10/19/24 09:00 Amoxicillin/Clavulanate K 500-125 Mg Tab PO 10/20/24 21:01 Q12HR DANA Bupropion HCl 150 mg 10/12/24 09:00 10/18/24 08:54 Bupropion Hcl Xl (24 Hr) 150 Mg Tabcr PO 150 mg QAM DANA Administration Calcitriol 0.25 mcg 10/12/24 09:00 10/18/24 08:54 Calcitriol 0.25 Mcg Capsule PO 0.25 mcg DAILY DANA Administration Calcium Acetate 1,334 mg 10/12/24 17:00 10/18/24 11:41 Calcium Acetate 667 Mg Tablet PO Not Given TIDWM [facility] Epoetin [place]-epbx 10,000 units 10/18/24 18:26 Epoetin [place]-Epbx 10,000 Units/Ml Vial IV PUSH 10/18/24 18:27 ONCE ONE Escitalopram Oxalate 20 mg 10/12/24 09:00 10/18/24 08:53 Escitalopram Oxalate 10 Mg Tablet PO 20 mg DAILY DANA Administration Gentamicin Sulfate 1 applic 10/13/24 09:00 10/18/24 08:54 Gentamicin Sulfate 0.1% Oint 15 Gm Tube TOPICAL 1 applic DAILY DANA Administration Albumin Human 50 mls @ 999 mls/hr 10/13/24 12:04 10/13/24 18:08 Albutein IVPB 11/12/24 12:03 Infused Q10M PRN Infusion HYPOTENSION Lactulose 20 gm 10/13/24 09:00 10/18/24 08:54 Lactulose 20 Gm/30 Ml Udc PO 20 gm QAM DANA Administration Metoprolol Succinate 50 mg 10/12/24 09:00 10/18/24 08:54 Metoprolol Succinate Ext Rel 50 Mg Tabcr PO 50 mg QAM DANA Administration Ondansetron HCl 4 mg 10/11/24 08:20 10/15/24 10:18 Ondansetron Inj 4 Mg/2 Ml Vial IV PUSH 4 mg Q4H PRN Administration Nausea Polyethylene Glycol 17 gm 10/12/24 17:00 10/18/24 08:54 Polyethylene Glycol 3350 17 Gm Powd.Pack PO 17 gm BID DANA Administration Radiology Results: ITS Impressions Abdomen/Pelvis CT 10/11/24 07:58 IMPRESSION: 1. Small pleural effusion. 2. Mild pelvic lymphadenopathy which may be reactive. 3. Large volume of ascites with peritoneal dialysis catheter noted. 4. Right inguinal hernia containing fat. Pelvis CT 10/13/24 12:52 IMPRESSION: 1. No abscess. Scrotum Ultrasound 10/13/24 12:54 IMPRESSION: 1. Scrotal skin thickening. No abscess. Pelvis Ultrasound 10/13/24 12:56 IMPRESSION: 1. Skin thickening in the left inguinal region, consistent with inflammation. No drainable abscess. Chest X-Ray 10/13/24 15:44 IMPRESSION: 1. Left internal jugular likely tunneled central venous catheter with distal tip at the superior cavoatrial junction. No acute cardiopulmonary disease. 2. Prominent region of amorphous calcific density projecting over the proximal right humerus which could represent material external to the patient or tumoral calcinosis, heterotopic ossification or other dystrophic soft tissue calcification for which there would be a wide differential. Correlate with physical exam and clinical history. Central Venous Line 10/13/24 16:29 IMPRESSION: 1. Fluoroscopy utilized during left internal jugular central venous catheter placement. Abdomen X-Ray 10/15/24 18:50 IMPRESSION: Peritoneal dialysis catheter, coil projecting over the right pelvis. Paucity of small bowel gas. Hepatomegaly. Ascites. Labs Labs: Laboratory Results - last 24 hr 10/17/24 10/18/24 06:01 06:44 WBC 20.5 H RBC 3.23 L Hgb 8.6 L Hct 29.1 L MCV 90.1 MCH 26.6 MCHC 29.6 L RDW 15.8 H Plt Count 331 MPV 8.8 Sodium 137 Potassium 5.1 H Chloride 104 Carbon Dioxide 22 Anion Gap 11 BUN 52 H D Creatinine 7.82 H Estim Creat Clear Calc 11 Estimated GFR 8 L Glucose 102 Calcium 9.6 Phosphorus 7.6 H Magnesium 2.5 H Albumin 3.1 L Hep B Core Total Ab Non-reactive
--- NOTE | 2024-10-18 17:30 | PC.NURSE ---
Patient returned from dialysis via bed. No complaints at this time.
--- NOTE | 2024-10-18 18:06 | PC.NURSE ---
This RN spoke with [facility] admistrator (Shannon) who states they have everything they need and will accept the patient. His chair time will be at [facility] on , , and Sat at 7 am. They will arrange a visit this Wednesday to get him through the week and his scheduled sessions will begin next Wednesday. Shannon was given patient phone number and said she will reach out to him directly with a time for Wednesday's session some time tomorrow. Patient is aware and agreeable to location/times. Voicemail left for cc as they are gone for the day. Shannon's phone number is [phone].
[2024-10-19 05:45] VITALS: BP 169/90; PULSE 79; RESP 18; TEMP 36.4; O2SAT 95
[2024-10-19 06:25] LABS: Hematocrit 28.4 % (42.0-52.0); Hemoglobin 8.2 g/dL (14.0-18.0); Mean Corpuscular HGB Conc 28.9 g/dl (32-36); Mean Corpuscular Hemoglobin 26.6 pg (26-34); Mean Corpuscular Volume 92.2 fl (80-100); Mean Platelet Volume 10.2 fl (7.4-10.4); Platelet Count Result 328 k/mm3 (150-375); Red Blood Count 3.08 M/mm3 (4.6-6.20); Red Cell Distribution Width 15.9 % (11.5-14.5); White Blood Count 20.3 K/mm3 (4.5-10.0)
[2024-10-19 07:48] LABS: Anion Gap 12 mmol/L (4-12); Blood Urea Nitrogen 30 mg/dL (9-20); Calcium 9.3 mg/dL (8.4-10.2); Carbon Dioxide 23 mmol/L (22-30); Chloride 104 mmol/L (98-107); Estimated CRCL calculation 18 ml/min; Estimated Glomerular Filt Rate 13; Glucose 80 mg/dL (65-110); Magnesium 2.3 mg/dL (1.6-2.3); Phosphorus 5.9 mg/dL (2.5-4.5); Potassium 5.3 mmol/L (3.4-5.0); Sodium 139 mmol/L (137-145)
[2024-10-19] MEDS: HYDROcodone/acetaminophen (*CRX) 5-325 MG TABLET 1 TAB PO (07:58)
--- NOTE | 2024-10-19 08:49 | PM.DS ---
DS: Admitting Diagnosis Discharge Date 10/18/24 Admitting Diagnosis abdominal pain. DS: Discharge Diagnosis Discharge Diagnosis (1) SBP (spontaneous bacterial peritonitis): Code(s): K65.2 - Spontaneous bacterial peritonitis Status: Acute (2) Acute kidney failure: Code(s): N17.9 - Acute kidney failure, unspecified Status: Acute (3) End stage renal disease: Code(s): N18.6 - End stage renal disease Status: Chronic (4) Obstruction of peritoneal dialysis catheter: Code(s): T85.691A - Other mechanical complication of intraperitoneal dialysis catheter, initial encounter Status: Acute (5) Essential hypertension: Code(s): I10 - Essential (primary) hypertension Status: Acute Plan . DS: Summary Hospital Course Hospital Course: patient with history of peritoneal dialysis presented with abdominal pain, and elevated white counts suspicious for SBP, ER, civil technician was not not able to remove peritoneal fluids for culture, plan was to transfer patient to a tertiary care however speaking with Dr. Gomez, it was decided to monitor overnight and try again in the morning to collect sample. Again dialysis fluid sample was not able to aspirate, urine and blood culture no growth so far, patient is being treated with Cefepime. patient white counts are trending down, on 10/13patient had dialysis catheter placed and had HD, today again patient is having HD and seen in the dialysis center stats, feeling much better and abdominal pain has improve on 10/13 his white counts are trending down, so far his urine and blood culture no growth so far, patient whites are are trending down, discussed with Dr. Carbajal, once clinically stable will need to be seen at a tertiary care hospital for further management of his PD catheter. patient clinical symptoms are improving, blood and urine culture not growth so far, on 10/[address] Gomez, will discharge patient with schedule HD as outpatient, patient is waiting for hepatatis B panel result, will stop IV pain medication in anticipation of discharge. patient had HD yesterday, patient pain and clinical symptoms have improved, will discharge patient today. Time Spent with Patient Time attestation: Total time spent providing and/or coordinating discharge services: Exam Narrative: Patient is comfortable, NAD HEENT: eyes are clear and none icteric LUNGS:CTA HEART: RR S1S2 ABD: BS+, Soft and nontender Lower extremities: no edema SKIN: nonjaundiced Neuro: grossly intact. DS: Data Data Completed and Pending Labs on day of discharge: Labs from last 24 hours 10/19/24 10/17/24 06:16 06:01 WBC 20.3 H RBC 3.08 L Hgb 8.2 L Hct 28.4 L MCV 92.2 MCH 26.6 MCHC 28.9 L RDW 15.9 H Plt Count 328 MPV 10.2 Sodium 139 Potassium 5.3 H Chloride 104 Carbon Dioxide 23 Anion Gap 12 BUN 30 H D Creatinine 4.74 H Estim Creat Clear Calc 18 Estimated GFR 13 L Glucose 80 Calcium 9.3 Phosphorus 5.9 H Magnesium 2.3 Albumin 3.0 L Hep B Core Total Ab Non-reactive Discharge Plan Discharge Attending physician on discharge: Mireya Middleton Consulting providers: Anni Graham; Gurpreet Mishra; Riley Wiseman; Santi Albright; David Benito V.; Burke Delgadillo Discharging Clinician: Mireya Middleton Patient Disposition: Home, Self-Care Activity: as tolerated Diet: heart healthy and low sodium Discharge Instructions: patient will have outpatient hemo-dialysis, patient will follow discharge from his community center coordinator and follow up as scheduled, patient to follow up with his primary care provider as soon as possible, patient is instructed if any symptoms redevelop to go to nearest ER. Patient Instructions: Antibiotic Form, Pain Management (DC) Patient Language: Bengali Stand Alone Forms: General Discharge Information Follow-up/Referrals: Joel Hernandez MD [Primary Care Provider] - Anni Graham MD [Physician] - Discharge Medications: New polyethylene glycol 3350 [Miralax] 17 gram Powder In Packet 17 g PO BID Qty: 14 0RF hydrocodone-acetaminophen 5-325 mg Tablet 1 tablet PO Q4H PRN (Reason: Pain 4-10) Qty: 15 0RF calcium acetate(phosphat bind) 667 mg Tablet 1,334 mg PO TIDWM Qty: 240 0RF gentamicin 0.1 % Ointment 1 applic topical DAILY Qty: 30 0RF amoxicillin-pot clavulanate [Augmentin] 500-125 mg Tablet 1 tablet PO Q12HR Qty: 4 0RF lactulose 10 gram/15 mL Solution 20 g PO QAM Qty: 1000 0RF Continued calcitriol 0.25 mcg capsule 0.25 mcg PO DAILY metoprolol succinate 50 mg PO DAILY Patient Comments: pt takes medication in morning amlodipine 10 mg tablet 10 mg PO DAILY escitalopram oxalate [Lexapro] 20 mg tablet 20 mg PO DAILY Qty: 90 1RF bupropion HCl [Wellbutrin XL] 150 mg tablet extended release 24 hr 150 mg PO QAM Qty: 90 1RF Date of admission: 10/11/24 08:20 Primary Care Provider: Joel Hernandez Admitting Provider: Mireya Middleton Attending physician on admission: Mireya Middleton Condition: Stable
[2024-10-19] MEDS: LACTULOSE 20 GM/30 ML UDC PO (09:25)
[2024-10-19] MEDS: CALCIUM ACETATE 667 MG TABLET 1334 MG PO (09:25)
[2024-10-19] MEDS: amLODIPine BESYLATE 10 MG TABLET PO (09:25)
[2024-10-19] MEDS: calcitrioL 0.25 MCG CAPSULE PO (09:25)
[2024-10-19] MEDS: AMOXICILLIN/CLAVULANATE K 500-125 MG TAB 1 TABLET PO (09:25)
[2024-10-19] MEDS: buPROPion HCL XL (24 HR) 150 MG TABCR PO (09:25)
[2024-10-19 09:26] VITALS: PULSE 79
[2024-10-19] MEDS: METOPROLOL SUCCINATE EXT REL 50 MG TABCR PO (09:26)
[2024-10-19] MEDS: ESCITALOPRAM OXALATE 10 MG TABLET 20 MG PO (09:26)
[2024-10-19] MEDS: GENTAMICIN SULFATE 0.1% OINT 15 GM TUBE 1 APPLIC TOPICAL (09:26)
== END 2024-10-19 11:00 | disposition home or self-care (01) | DRG 919 ==
LOC: ANHED 08:20 → ANH3MEDSUR 09:07
PROVIDERS: Emergency Medicine; Internal Medicine Nephrology; Surgery; Admitting Provider Family Medicine; Emergency Provider Emergency Medicine; PCP Family Medicine; Visit Provider Family Medicine
PROC: 0JH63XZ Insertion of Tunneled Vascular Access Device into Chest Subcutaneous Tissue and Fascia, Percutaneous Approach (ICD-10-PCS; CPT 36908; principal; 2024-10-13 14:00)
DX: T85.691A Other mechanical complication of intraperitoneal dialysis catheter, initial encounter (principal); K65.2 Spontaneous bacterial peritonitis; N18.6 End stage renal disease; I12.0 Hypertensive chronic kidney disease with stage 5 chronic kidney disease or end stage renal disease; N17.9 Acute kidney failure, unspecified; Z99.2 Dependence on renal dialysis; D63.1 Anemia in chronic kidney disease; E11.22 Type 2 diabetes mellitus with diabetic chronic kidney disease; Z20.822 Contact with and (suspected) exposure to COVID-19; Z91.158 Patient's noncompliance with renal dialysis for other reason
CPT/HCPCS: 36415; 72192; 74018; 74176; 76857; 76870; 77001; 80053; 80069; 81001; 82948; 83690; 83735; 85025; 85027; 85652; 86140; 86704; 86706; 86850; 86900; 86901; 87040; 87086; 87340; 87637; 87641; 93976; 96374; 96375; 99285; A9270; C1750; G0257; J0690; J0692; J1171; J1644; J2003; J2004; J2371; J2405; J2704; J2997; J3010; J7030; J7040; J7120; P9047; Q5105

== ENCOUNTER 2024-12-05 09:36 | Inpatient (IN) | payer MEDICARE, SELFPAY ==
--- NOTE | ~2024-12-05 | XR_ITS ---
EXAMINATION: XR fl guide central line place DATE: 12/07/2024 10:54 INDICATION: Tunneled dialysis catheter exchange TECHNIQUE: 3 fluoroscopic images of the right upper chest were obtained during procedure performed by Dr. Keenan. Radiologist was not present for the imaging or procedure. The amount of fluoroscopy time u sed during this procedure was 1.2 minutes. Total DAP was 2.3096 Gycm^2. COMPARISON: None. FINDINGS/IMPRESSION: Images demonstrate a large-bore dual-lumen tunneled right internal jugular central venous catheter wi th distal tip near the superior cavoatrial junction. See procedure note for further detail. Reviewed, dictated and finalized at location B.
--- NOTE | ~2024-12-05 | XR_ITS ---
XR chest port-a-cath/central 12/07/2024 12:40 Indication: Exchange dialysis catheter Procedure: AP portable chest Comparison: Comparison to multiple prior studies sequentially, with oldest reviewed study dated 07/09. Findings: Cardiomegaly with pulmonary edema. Interval removal of left-sided dialysis catheter. Interv al replacement with dual-lumen right IJ dialysis catheter, tips in the SVC. Small right pleural effus ion. No pneumothorax. No acute osseous abnormality. Impression: 1: Cardiomegaly with pulmonary edema. Reviewed, dictated and finalized at location A. Impression: 1: Cardiomegaly with pulmonary edema.
--- NOTE | ~2024-12-05 | XR_ITS ---
XR chest 2V Ordering provider: Munir Perez MD History: 44 years Male with . catheter eval . Comparison: October 13, 2024 FINDINGS: MEDIASTINUM: The cardiac silhouette is slightly enlarged. Left permacath with the tip overlying super ior vena cava. LUNGS: No effusions or pneumothorax. Minimal opacification the right lower lobe laterally. OTHER: No free air under the diaphragm. IMPRESSION: Right basilar atelectasis versus pneumonia seen laterally. Reviewed, dictated and finalized at location A.
[2024-12-05 09:42] VITALS: BP 123/70; PULSE 92; RESP 16; TEMP 36.6; O2SAT 95
--- OUTSIDE RECORDS SUMMARY | 2024-12-05 10:33 | XMS_ITS | Encounter Summary ---
Author Organization [facility] Address [address] [place] [address] Care Team Providers Care Coal Equipment Operator Name Role Phone Joel Hernandez MD Primary Care Provider [phone] Encounter Details Date Type Department Care Team (Late st Contact Info) Description 02/04/2007 Outpatient Historical [facility] Family Medicine - [place] [address] [facility] [address] [place] [address] Zen Díaz MD [address] [facility] 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
--- OUTSIDE RECORDS SUMMARY | 2024-12-05 10:33 | XMS_ITS | Encounter Summary ---
Author Organization [facility] Address [address] [place] [address] Care Team Providers Care Technical Trainer Name Role Phone Joel Hernandez MD Primary Care Provider [phone] [phone] Encounter Details Date Type Department Care Team (Late st Contact Info) Description 11/01/2006 Outpatient Historical [facility] Family Medicine - [place] [address] [facility] [address] [place] [address] Zen Díaz MD [address] [facility] 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
--- OUTSIDE RECORDS SUMMARY | 2024-12-05 10:33 | XMS_ITS | Patient Health Record ---
Author Organization [facility] Address [address] [place], [place] [address] Care Team Providers Care Reo Asset Manager Name Role Phone Sudhir Dawson Unavailable [phone] Ilan CANO, Alberto Unavailable Unavailable Reason For [...] Problem Status W/U Status Risk Notes Problem [id number] Essential (primary) hypertension (401.9) Active confirmed Low Problem 19837291 DM w/o complication type II (E11.9) Active confirmed Low Problem [id number] Chronic kidney disease, stage III (moderate) (N18.3) Active confirmed Low Problem [id number] Gout (M10.9) Active confirmed Low Plan Of [...] Coverage End Date [employer] [address] [place] [address] [phone] [id number] Carlos [place] Self - patient is the insured Medical (General) History Medical History History ICD Code DM: recent diagonosis. no retinopathy so far. HTN CKD Gout DYAN GERD
--- OUTSIDE RECORDS SUMMARY | 2024-12-05 10:33 | XMS_ITS | Encounter Summary ---
Author Organization [facility] Address [address] [place] [address] Care Team Providers Care Survival Specialist Name Role Phone Joel Hernandez MD Primary Care Provider [phone] Encounter Details Date Type Department Care Team (Late st Contact Info) Description 08/11/2006 Outpatient Historical [facility] Family Medicine - [place] [address] [facility] [address] [place] [address] Zen Díaz MD [address] [facility] 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
--- OUTSIDE RECORDS SUMMARY | 2024-12-05 10:33 | XMS_ITS | Encounter Summary ---
Author Organization [facility] Address [address] [place] [address] Care Team Providers Care Distribution Operation Supervisor Name Role Phone Joel Hernandez MD Primary Care Provider [phone] Encounter Details Date Type Department Care Team (Late st Contact Info) Description 06/23/2007 Outpatient Historical [facility] Family Medicine - [place] [address] [facility] [address] [place] [address] Zen Díaz MD [address] [facility] 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
--- OUTSIDE RECORDS SUMMARY | 2024-12-05 10:33 | XMS_ITS | Clinical Summary ---
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
--- OUTSIDE RECORDS SUMMARY | 2024-12-05 10:33 | XMS_ITS | Clinical Summary ---
Author Organization [facility] Address [address] [place] [address] Phone Care Team Providers Care Senior Investigator Name Role Phone Provider, None Primary Care [...] . Behavioral Health On track(2020 3:21 PM OUTPATIENT CODER) Yes Connie Rodney, PROPERTY VALUER Note: Goal Reviewed with: patient Readiness to change: Ready to change Department associated with goal: [facility] Steps to achieve goal: will attend counseling/psychotherapy sessions at least once monthly, utilizing individual and/or group sessions to express thoughts and feelings. will verbalize understanding of depression and anxiety, ex: causes/contributing and risk factors, prevalence of conditions in the general population. will identify two or more skills to gain peace and relieve stress. anxiety/depression Behavioral Health On track(2020 3:33 PM OUTPATIENT CODER) No Heather Montez, PROPERTY VALUER Note: Department associated with goal: [facility] Goal Reviewed with: patient Readiness to change: Ready to change Department associated with goal: [facility] Steps to achieve goal: Goal Reviewed with: patient Readiness to change: Ready to change Department associated with goal: [facility] Steps to achieve goal: [...] - 144 mmol/L 05/13/2018 6:06 AM CDT [facility] POTASSIUM 4.3 3.5 - 5.1 mmol/L 05/13/2018 6:06 AM [facility] CHLORIDE 99(L) 100 - 110 mmol/L 05/13/2018 6:06 AM [facility] CO2, VENOUS 23 22 - 32 mmol/L 05/13/2018 6:06 AM [facility] ANION GAP 17.3 8.0 - 20.0 mmol/L 05/13/2018 6:06 AM [facility] GLUCOSE 128(H) 70 - 99 mg/dL 05/13/2018 6:06 AM [facility] BUN 22(H) 6 - 20 mg/dL 05/13/2018 6:06 AM [facility] CREATININE, BLOOD 1.33(H) 0.80 - 1.30 mg/dL 05/13/2018 6:06 AM [facility] BUN/CREATININE RATIO 17 12 - 20 ratio 05/13/2018 6:06 AM [facility] TOTAL PROTEIN 7.7 6.0 - 8.3 g/dL 05/13/2018 6:06 AM [facility] ALBUMIN 3.4(L) 3.5 - 5.2 g/dL 05/13/2018 6:06 AM [facility] Comment: The colormetric methods used for the determination of Albumin may lead to falsely elevated test results in patients suffering from renal failure or insufficiency due to interference with other proteins. A/G RATIO 0.8(L) 1.0 - 2.0 05/13/2018 6:06 AM [facility] CALCIUM 9.1 8.9 - 10.3 mg/dL 05/13/2018 6:06 AM [facility] T BILI 0.4 <=1.2 mg/dL 05/13/2018 6:06 AM [facility] SGOT (AST) 18 <=40 U/L 05/13/2018 6:06 AM [facility] SGPT (ALT) 21 <=41 U/L 05/13/2018 6:06 AM CDT [facility] ALKALINE PHOSPHATASE 88 40 - 130 U/L 05/13/2018 6:06 AM CDT [facility] GFR, EST. NONAFRICAN 60 >=60 05/13/2018 6:06 AM CDT [facility] GFR, EST. >60 >=60 018 6:06 AM CDT [facility] Comment: Creatinine Clearance is the preferred criteria for selecting drug dose adjustments in renally impaired patients. The GFR is provided as additional pertinent clinical information. GFR is reported in mL/min/1.73 sq m. Blood specimen (specimen) Butterfly Puncture / Unknown 05/13/2018 4:39 AM CDT 05/13/2018 5:33 AM CDT us Shilpa Samuel APRN, CNP CHEMISTRY ORDERABLE S Final Result Performing Organization Address City/[facility] Co de Phone Number [facility] [address] [place] [address] * (ABNORMAL) Hemoglobin A1C w/ Estimated Glucose (05/10/2018 8:30 PM CDT) HGB-A1C 8.6(H) 4.0 - 6.0 % 05/10/2018 9:23 PM CDT [facility] Est Average Glucose 200.1 mg/dL 05/10/2018 9:23 PM CDT [facility] Blood specimen (specimen) Venous Catheter (IV) / Unknown 05/10/2018 8:30 PM CDT 05/10/2018 9:04 PM CDT Narrative [facility] - 05/10/2018 9:23 PM CDT HEMOGLOBIN A1C: DIABETIC PATIENTS: WELL-CONTROLLED: 6.2 - 7.0 INTERMEDIATE WELL-CONTROLLED: 7.0 - 9.0 POORLY-CONTROLLED: >9.0 us Jose Rodríguez MD CHEMISTRY ORDERABLES Renay l Result [facility] [address] [place] [address] from Last 3 Months or Most Recently Relevant to Health Maintenance Insurance [facility] Advance Directives * Full Code (Latest Code Status on File) Date Activated Date Inactivated Comments 05/10/2018 10:39 PM 05/13/2018 3:27 PM CPR-Full Tr eatment: FULL ARREST: Attempt Resuscitation/CPR wit intubation and mechanical ventilation. PRE-ARREST: Use entire range of life support measures to stabilize the patient. Care Teams Senior Investigator Relationship Specialty Start Date End Date Provider, Merry LARA PCP - General 05/10/18
--- OUTSIDE RECORDS SUMMARY | 2024-12-05 10:33 | XMS_ITS | Clinical Summary ---
Author Organization [facility] Address [address] [place] [address] Care Team Providers Care Mustanger Name Role Phone ReneeKade child Rock TRAORE Primary Care Provider [phone]- [phone] Medications acetaminophen (TYLENOL) 325 MG tablet Take [...] 2 diabetes mellitus with hyperglycemia 09/2017 Immunizations Immunization Administration Dates Next Due Influenza (IM) Preservative [...] Comments Blood Pressure 148/86 06/25/2020 12:00 PM [facility] Pulse 89 06/25/2020 12:00 PM [facility] Temperature 35.5 C (95.9 F) 06/25/2020 12:00 PM [facility] Respiratory Rate 20 06/25/2020 12:00 PM [facility] Oxygen Saturation 97% 06/25/2020 12:00 PM [facility] Inhaled Oxygen Concentration - - Weight 111 kg (245 lb) 06/25/2020 12:00 PM [facility] Height 175.3 cm (5' 9 ) 06/25/2020 12:00 PM [facility] Body Mass Index 36.18 06/25/2020 12:00 PM [facility] Plan of Treatment Health Maintenance Due Date Last Done Comments Hepatitis B Vaccine (1 of 3 - 19+ 3-dose series) 11/01 Pneumococcal Vaccine: Peds ( 0 to 5 Years) and At-Risk Patients (6 to 49 Years) (2 of 2 - PCV) 10/10/2015 10/09/2014 Diabetes: Hemoglobin A1C 01/02/2021 Diabetes: Ophthalmology Exam 01/02/2021 Diabetes: Pedal Pulse Checked 01/02/2021 Diabetes: Sensory Foot Exam 01/02/2021 Diabetes: Visual Foot Exam 01/02/2021 Influenza Vaccine (Season Ended) 2025 10/10/19 15 Insurance [place] [facility] Care Teams Mustanger Relationship Specialty Start Date End Date Kade Marie DO [address] [facility] [address] [place] [address] PCP - General Family Medicine 03/11/21
--- OUTSIDE RECORDS SUMMARY | 2024-12-05 10:33 | XMS_ITS | Clinical Summary ---
Author Organization [facility] Address [address] [place] [address] Phone Care Team Providers Care Box Truck Washer Name Role Phone Unavailable Primary Care Provider Unavailabl e Allergies No known active allergies Medications acetaminophen (TYLENOL) 325 MG tablet Take 650 mg by mouth every 6 hours as needed 5 Active Blood Glucose Monitoring Suppl (Simple Emotion Verio Flex System) w/Device kit 1 Active Cholecalcifero l (Vitamin D3) 1.25 MG (42099 UT) capsule TAKE 1 CAPSULE BY MOUTH WEEKLY 1 Active escitalopram (LEXAPRO) 10 MG tablet Take 10 mg by mouth 1 (one) time each day 1 Active fenofibrate (TRICOR) 145 MG tablet Take 145 mg by mouth 1 (one) time each day 1 Active glucose blood test strip 5 Active glyBURIDE (DIABETA) 2.5 MG tablet Take 2.5 mg by mouth 1 (one) time each day in the morning 1 Active hydroCHLOROthi azide (HYDRODIURIL) 12.5 MG tablet Take 12.5 mg by mouth 1 (one) time each day 1 Active Lancets misc 5 Active Ozempic, 1 MG/DOSE, 4 MG/3ML solution pen-injector INJECT 1 MG (0.75 ML) SUBCUTANEOUSLY WEEKLY 1 Active Active Problems Problem Noted Date Diagnosed Date Anemia of chronic renal failure 06/06/2021 Chronic kidney disease, Stage IV (severe) 2020 Body mass index 30+ - obesity 05/13/2018 Hypertension 05/10/2018 Type 2 diabetes mellitus 05/10/2018 Immunizations Immunization Administration Dates Next Due Influenza (IM) Preservative Free 10/09/2014 Pneumococcal Polysaccharide 10/09/2014 Social History Tobacco Use Types Packs/Day Years Used Date Smoking Tobacco: Former Smokeless Tobacco: Never Alcohol Use Standard Drinks/Week Comments Not Currently 0 (1 standard drink = 0.6 oz pur e alcohol) Sex and Gender Information Value Date Recorded Sex Assigned at Not on file Legal Sex Male 11:06 AM MDT Gender Identity Not on file Sexual Orientation [...] Due Date Last Done Comments Influenza Vaccine (Season Ended) 2025 10/10/[address] [place] [address]
--- OUTSIDE RECORDS SUMMARY | 2024-12-05 10:33 | XMS_ITS | Clinical Summary ---
Author Organization [facility] Address [address] [place] [address] Care Team Providers Care Diagnostic Assistant Name Role Phone Keli Daley RN Unavailable [phone] Mya Gross MD Primary Care Provider [phone] Source Comments [facility],non-owned Affiliates and Associated Physician Practices is amultiple site organization consisting of ambulatory clinics and hospital sitesin [place], [place], [place] and [place]. This disclosure is being madepursuant to the Care Everywhere program and may not contain all information available regarding this patient. Last updated 18.[facility] Allergies No known active allergies Medications * Be aware that medications may not be up to date on this document. Alwaysverify current medications with the patient. omeprazole (PRILOSEC) 20 MG capsule Take 20 mg by mouth once daily. Active acetaminophen (TYLENOL) 325 MG tablet Take 2 Tabs by mouth every 6 hours as needed. Maximum allowable Acetaminophen amount = 4 Grams (4000 mg) / 24 hours. 5 Active glipiZIDE CR 24hr (GLUCOTROL XL) 5 MG tablet Take 1 Tab by mouth daily before breakfast. 30 Tab 3 5 Active Additional Information Patient not taking.Reported on 03/19/2023 blood glucose monitoring kit 1 Kit 0 5 Active lancets 100 Each 1 5 Active blood glucose test strip 100 Strip 1 5 Active escitalopram (Lexapro) 20 MG tablet Take 1 (one) tablet by mouth once daily Active amLODIPine (Norvasc) 10 MG tablet Take 1 (one) tablet by mouth once daily 30 tablet 2 Active Additional Information Patient not taking.Reported on 03/19/2023 Active Problems Problem Noted Date Diagnosed Date Acid reflux disease 06/03/2023 Depression 06/03/2023 Overview (06/03/2023): PCP ESRD on peritoneal dialysis 06/03/2023 Generalized anxiety disorder 06/03/2023 Hypercholesteremia 06/03/2023 DYAN on CPAP 06/03/2023 Primary gout 06/03/2023 Diabetes mellitus 08/09/2014 Overview (06/03/2023): dx in 2014. oral meds at dx. Never on insulin. No group cio. Hypertension 08/09/2014 Resolved Problems Problem Noted Date Diagnosed Date Resolved Date Viral gastroenteritis 10/09/20142014 Immunizations Immunization Administration Dates Next Due INFLUENZA VACCINE, TRIV. [...] at Not on file Legal Sex Male 12:36 PM ELECTROENCEPHALOGRAPH TECHNOLOGIST Gender Identity Not on file Sexual Orientation [...] Health Maintenance Due Date Last Done Comments COLPARISHUARD (AGES 45-75) - COLON CA SCREENING 1979 COLON MONITORING 1979 COLONOSCOPY - COLON CA SCREENING 1979 CT COLONOGRAPHY - COLON CA SCREENING 1979 Colorectal Cancer Screening 1979 FIT - COLON CA SCREENING 1979 FLEX SIG - COLON CA SCREENING 1979 MEDICARE AWV 12 MONTHS 1979 DTAP/TDAP/TD VACCINES (1 - Tdap) 11/01/1998 HEPATITIS B VACCINE (1 of 3 - Risk Dialysis 4-dose series) 1999 PNEUMOCOCCAL VACCINE (2 of 2 - PCV) 10/10/2015 10/09/2014 DIABETES-STATIN 2019 DIABETES RETINOPATHY SCREENING 06/03/2023 DIABETES-FOOT EXAM WITH MONOFILAMENT 06/03/2023 DIABETES-HGB A1C 06/03/2023 07/09/2022, 10/09/2014 DIABETES-SERUM CREATININE 03/19/20242022, 07/09/2022, 10/10/2014, Additional history exists COVID-19 VACCINE ( season) 2024 08/16/2021, 11/18/2020 DEPRESSION SCREENING 08/09/2024 DIABETES - URINE PROTEIN SCREENING 08/09/2024 07/09/2022 INFLUENZA VACCINE (Season Ended) 2025 07/28/2022, 05/26/2021, 10/09/2014 ZOSTER VACCINE (1 of 2) 11/01/2029 HEPATITIS C SCREENING Completed 07/09/2022 HIV SCREENING Completed 07/09/2022 HIB VACCINE Aged Out No longer eligi ble based on patient's age to complete this topic HPV VACCINE Aged Out No longer eligi ble based on patient's age to complete this topic MENINGOCOCCAL (Group B) VACCINE SHARED DECISION-MAKING Aged Out No longer eligible based on patient's age to complete this topic MENINGOCOCCAL GROUPS A/C/Y/W VACCINE Aged Out No longer eligible based [...] METABOLIC PANEL STAT 03/19/2023 1:05 PM CDT PROTEIN CREATININE RATIO URINE RANDOM PNL Routine 07/09/2022 11:06 AM ELECTROENCEPHALOGRAPH TECHNOLOGIST Proteinuria, unspecified type Type 2 diabetes mellitus with hyperosmolarity without coma, without long-term current use of insulin HEPATITIS C ANTIBODY Routine 07/09/2022 11:06 AM ELECTROENCEPHALOGRAPH TECHNOLOGIST Proteinuria, unspecified type Type 2 diabetes mellitus with hyperosmolarity without coma, without long-term current use of insulin HEMOGLOBIN A1C Routine 07/09/2022 11:06 AM ELECTROENCEPHALOGRAPH TECHNOLOGIST Proteinuria, unspecified type Type 2 diabetes mellitus with hyperosmolarity without coma, without long-term current use of insulin HIV-1 HIV-2 ANTIBODY + HIV P24 AG PANEL Routine 07/09/2022 11:06 AM ELECTROENCEPHALOGRAPH TECHNOLOGIST Type 2 diabetes mellitus with hyperosmolarity without coma, without long-term current use of insulin Proteinuria, unspecified type from Last 3 Months or Most Recently Relevant to Health Maintenance Results * (ABNORMAL) COMPREHENSIVE METABOLIC PANEL (03/19/2023 1:05 PM CDT) BUN 55(H) 7 - 26 mg/dL 03/19/2023 1:44 PM CDT [facility] Creatinine 7.58(H) 0.71 - 1.16 mg/dL 03/19/2023 1:44 PM CDT [facility] Sodium 138 136 - 145 mmol/L 03/19/2023 1:44 PM CDT [facility] Potassium 4.0 3.5 - 4.5 mmol/L 03/19/2023 1:44 PM CDT [facility] Chloride 103 98 - 107 mmol/L 03/19/2023 1:44 PM [facility] CO2 22 22 - 29 mmol/L 03/19/2023 1:44 PM [facility] Glucose 244(H) 70 - 115 mg/dL 03/19/2023 1:44 PM [facility] Calcium 8.8 8.4 - 10.2 mg/dL 03/19/2023 1:44 PM [facility] Protein Total 8.1 6.0 - 8.3 g/dL 03/19/2023 1:44 PM [facility] Albumin 3.0(L) 3.4 - 5.0 g/dL 03/19/2023 1:44 PM [facility] Bilirubin Total 0.4 0.2 - 1.2 mg/dL 03/19/2023 1:44 PM [facility] Alkaline Phosphatase 86 40 - 150 U/L 03/19/2023 1:44 PM [facility] ALT 11 5 - 55 U/L 03/19/2023 1:44 PM [facility] AST 9 5 - 34 U/L 03/19/2023 1:44 PM [facility] Anion Gap 17 8 - 18 03/19/2023 1:44 PM [facility] BUN/Creatinine Ratio 7 7 - 23 03/19/2023 1:44 PM [facility] Osmolality Calculated 309(H) 270 - 300 mOsm/kg 03/19/2023 1:44 PM [facility] Albumin/Globulin Ratio 0.6(L) 1.1 - 2.3 03/19/2023 1:44 PM [facility] eGFR by CKD-EPI 8(L) >=90 mL/min/1.7 3 m2 03/19/2023 1:44 PM [facility] Blood BLOOD SPECIMEN / Unknown Venipuncture / Unknown 03/19/2023 1:05 PM CDT 03/19/2023 1:14 PM CDT us Lisa Yu EDGE CUTTING MACHINE OPERATOR-INFORMATION TECHNOLOGY ASSISTANT LAB - CHEMISTRY [place] Final Result [address] [address], [facility] [phone] * HIV-1 HIV-2 ANTIBODY + HIV P24 AG PANEL (07/09/2022 11:06 AM ELECTROENCEPHALOGRAPH TECHNOLOGIST) HIV Antigen/Antibod y 1 & 2 Non-reacti ve Non-react amaury 07/09/2022 12:51 PM [facility] Comment:No Laboratory eviden ce of HIV infection. Blood BLOOD SPECIMEN / Unknown Lab Venipuncture / Unknown 07/09/2022 11:06 AM ELECTROENCEPHALOGRAPH TECHNOLOGIST 07/09/2022 11:59 AM ELECTROENCEPHALOGRAPH TECHNOLOGIST us Chela Lanier MD LAB - CHEMISTRY ORDERABLES Final Result Performing Organization Address [facility] Co de Phone Number [address] [address], [facility] [phone] * (ABNORMAL) HEMOGLOBIN A1C (07/09/2022 11:06 AM ELECTROENCEPHALOGRAPH TECHNOLOGIST) Hemoglobin A1c 6.6(H) <=5.6 % 07/09/2022 2:34 PM [facility] Estimated Average Glucose 143 mg/dL 07/09/2022 2:34 PM [facility] Comment: HbA1c Interpretation: Normal : < 5.7% Pre-diabetes: 5.7-6.4% Diabetes: Equal to or greater than 6.5% Test results diagnostic of diabetes should be repeated for confirmation. Treatment target values recommended by ADA and other clinical organizations should be used to evaluate metabolic control in patients. Reference: [place] Diabetes Association, Standards of Care in Diabetes -2020 In patients 70 years and older consider HbA1c target range of 7.0-7.5% (Reference: Juancho Wilkerson et al. JAMDA. 2012) The Sebia assay for the measurement of HbA1c is a National Glycohemoglobin Standardization Program (NGSP) certified method. Blood BLOOD SPECIMEN / Unknown Lab Venipuncture / Unknown 07/09/2022 11:06 AM ELECTROENCEPHALOGRAPH TECHNOLOGIST 07/09/2022 12:04 PM ELECTROENCEPHALOGRAPH TECHNOLOGIST us Chela Lanire MD LAB - CHEMISTRY ORDERABLES Final Result [address] [address], [facility] [phone] * (ABNORMAL) PROTEIN CREATININE RATIO URINE RANDOM PNL (07/09/2022 11:06 AM ELECTROENCEPHALOGRAPH TECHNOLOGIST) Protein Urine 450 Not Established mg/dL 07/09/2022 1:03 PM [facility] Comment:Result obtained by d ilution. Creatinine Urine 43 Not Established mg/dL 07/09/2022 1:03 PM [facility] Comment:Result obtained by d ilution. Protein/Creati nine Ratio Urine 10.47(H) <0.10 07/09/2022 1:03 PM [facility] Urine URINE SPECIMEN OBTAINED BY CLEAN CATCH PROCEDURE / Unknown Collection / Unknown 07/09/2022 11:06 AM ELECTROENCEPHALOGRAPH TECHNOLOGIST 07/09/2022 11:59 AM ELECTROENCEPHALOGRAPH TECHNOLOGIST Result [facility] Chela Lanier MD LAB - URINE CHEMISTRY ORDERABLES Final Result Performing Organization Address City/[facility]/ZIP Co de Phone Number [address] [address], [facility] [phone] * HEPATITIS C ANTIBODY (07/09/2022 11:06 AM ELECTROENCEPHALOGRAPH TECHNOLOGIST) [facility] Hepatitis C Antibody Non-react amaury Non-reac tive 07/09/2022 12:51 PM [facility] Comment:Hepatitis C Antibody screen indicates [...] Lab Venipuncture / Unknown 07/09/2022 11:06 AM ELECTROENCEPHALOGRAPH TECHNOLOGIST 07/09/2022 11:59 AM ELECTROENCEPHALOGRAPH TECHNOLOGIST Chela Lanier MD LAB - CHEMISTRY ORDERABLES Final Result [address] [place] [address], [facility] [phone] from Last 3 Months or Most Recently Relevant to Health Maintenance Insurance MEDICARE ANTHEM SELF PAY NO INSURANCE Member Subscriber Plan / Payer (Ef fective for All Dates) Name:Carlos Montana Member ID:Not on file Relation to Subscriber:Self Name:Carlos Montana Subscriber ID:Not on file Payer ID:Not on file Group ID:Not on file Type:Self Pay Address: [place], [place] Advance Directives * Full Code (Latest Code Status on File) Date Activated Date Inactivated Comments 10/08/2014 8:15 PM 10/10/2014 4:46 PM Care Teams Diagnostic Assistant Relationship Specialty Start Date End Date Mya Gross MD [address] [facility] [address] [place] [id number] PCP - General 01/21/22 Keli Daley RN Risk Control Director 10/09/14
--- OUTSIDE RECORDS SUMMARY | 2024-12-05 10:33 | XMS_ITS | Encounter Summary ---
Author Organization [facility] Address [address] [place] [address] Care Team Providers Care Urologist Name Role Phone Joel Hernandez MD Primary Care Provider [phone] Encounter Details Date Type Department Care Team (Late st Contact Info) Description 08/25/2007 Outpatient Historical [facility] Family Medicine - [place] [address] [facility] [address] [place] [address] Zen Díaz MD [address] [facility] 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
[2024-12-05 11:48] LABS: Basophils Percent Auto 0.2 % (0.2-1.2); Eosinophils Absolute Auto 0.2 K/mm3 (0-0.3); Eosinophils Percent Auto 1.8 % (0-4.4); Hematocrit 25.9 % (42.0-52.0); Hemoglobin 7.4 g/dL (14.0-18.0); Immature Granulocyte Absolute 0.16 K/mm3 (0.00-0.031); Immature Granulocyte Percent A 1.3 % (0-0.5); Lymphocytes Absolute Auto 1.25 K/mm3 (0.9-3.2); Lymphocytes Percent Auto 9.8 % (18.3-44.2); Mean Corpuscular HGB Conc 28.6 g/dl (32-36); Mean Corpuscular Hemoglobin 26.9 pg (26-34); Mean Corpuscular Volume 94.2 fl (80-100); Mean Platelet Volume 7.9 fl (7.4-10.4); Monocytes Percent Auto 8.1 % (2.6-8.5); Neutrophils Absolute Auto 10.1 K/mm3 (1.3-6.7); Neutrophils Percent Auto 78.8 % (45.5-73.1); Platelet Count Result 233 k/mm3 (150-375); Red Blood Count 2.75 M/mm3 (4.6-6.20); Red Cell Distribution Width 18.1 % (11.5-14.5); White Blood Count 12.8 K/mm3 (4.5-10.0)
[2024-12-05 11:58] LABS: Alanine Aminotransferase 20 U/L (6-50); Albumin Level 3.9 g/dL (3.5-5.1); Alkaline Phosphatase 85 U/L (38-126); Anion Gap 19 mmol/L (4-12); Aspartate Amino Transferase 29 U/L (17-59); Bilirubin,Total 0.3 mg/dL (0.2-1.3); Blood Urea Nitrogen 62 mg/dL (9-20); Calcium 9.1 mg/dL (8.4-10.2); Carbon Dioxide 22 mmol/L (22-30); Chloride 99 mmol/L (98-107); Estimated CRCL calculation 10 ml/min; Estimated Glomerular Filt Rate 7; Glucose 76 mg/dL (65-110); Potassium 4.6 mmol/L (3.4-5.0); Sodium 140 mmol/L (137-145)
[2024-12-05 12:01] LABS: Prothrombin Time 13.9 Seconds (11.1-14.7)
[2024-12-05 12:02] LABS: Partial Thromboplastin Time 27.9 Seconds (22.3-36.8)
[2024-12-05 12:27] LABS: Hypochromasia 1+; Platelet Estimate Adequate (Adequate)
[2024-12-05 12:28] LABS: Anisocytosis 1+; Basophilic Stippling 1+; Schistocytes None Seen
--- OUTSIDE RECORDS SUMMARY | 2024-12-05 13:07 | XMS_ITS | Encounter Summary ---
Author Organization [facility] Address [address] [place] [address] Care Team Providers Care Pie Crust Mixer Name Role Phone Joel Hernandez MD Primary Care Provider [phone] Encounter Details Date Type Department Care Team (Late st Contact Info) Description 08/25/2007 Outpatient Historical [facility] Family Medicine - [place] [address] [facility] [address] [place] [address] Zen Díaz MD [address] 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
--- OUTSIDE RECORDS SUMMARY | 2024-12-05 13:07 | XMS_ITS | Encounter Summary ---
Author Organization [facility] Address [address] [place] [address] Care Team Providers Care Senior Applications Analyst Name Role Phone Joel Hernandez MD Primary Care Provider [phone] Encounter Details Date Type Department Care Team (Late st Contact Info) Description 06/23/2007 Outpatient Historical [facility] Family Medicine - [place] [address] [facility] [address] [place] [address] Zen Díaz MD [address] 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
--- OUTSIDE RECORDS SUMMARY | 2024-12-05 13:07 | XMS_ITS | Encounter Summary ---
Author Organization [facility] Address [address] [place] [address] Care Team Providers Care Fur Blowing Machine Operator Name Role Phone Joel Hernandez MD Primary Care Provider [phone] Encounter Details Date Type Department Care Team (Late st Contact Info) Description 08/11/2006 Outpatient Historical [facility] Family Medicine - [place] [address] [facility] [address] [place] [address] Zen Díaz MD [address] [facility] 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
--- OUTSIDE RECORDS SUMMARY | 2024-12-05 13:07 | XMS_ITS | Clinical Summary ---
Author Organization [facility] Address [address] [place] [address] Care Team Providers Care Chip Loft Worker Name Role Phone ReneeKade child Rock TRAORE Primary Care Provider [phone]- [phone] Medications acetaminophen (TYLENOL) 325 MG tablet Take [...] Comments Blood Pressure 148/86 06/25/2020 12:00 PM HUMANITIES COORDINATOR Pulse 89 06/25/2020 12:00 PM HUMANITIES COORDINATOR Temperature 35.5 C (95.9 F) 06/25/2020 12:00 PM HUMANITIES COORDINATOR Respiratory Rate 20 06/25/2020 12:00 PM HUMANITIES COORDINATOR Oxygen Saturation 97% 06/25/2020 12:00 PM HUMANITIES COORDINATOR Inhaled Oxygen Concentration - - Weight 111 kg (245 lb) 06/25/2020 12:00 PM HUMANITIES COORDINATOR Height 175.3 cm (5' 9 ) 06/25/2020 12:00 PM HUMANITIES COORDINATOR Body Mass Index 36.18 06/25/2020 12:00 PM HUMANITIES COORDINATOR Plan of Treatment Health Maintenance Due Date [...] (Season Ended) 2025 10/10/19 15 Insurance [place] [facility] Care Teams Chip Loft Worker Relationship Specialty Start Date End Date Kade Marie DO [address] [facility] [address] [place] [address] PCP - General Family Medicine 03/11/21
--- OUTSIDE RECORDS SUMMARY | 2024-12-05 13:07 | XMS_ITS | Encounter Summary ---
Author Organization [facility] Address [address] [place] [address] Care Team Providers Care Permanent Waver Name Role Phone Joel Hernandez MD Primary Care Provider [phone] Encounter Details Date Type Department Care Team (Late st Contact Info) Description 11/01/2006 Outpatient Historical [facility] Family Medicine - [place] [address] [facility] [address] [place] [address] Zen Díaz MD [address] 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
--- OUTSIDE RECORDS SUMMARY | 2024-12-05 13:07 | XMS_ITS | Clinical Summary ---
Author Organization [facility] Address [address] [place] [address] Phone Care Team Providers Care Satellite Instruction Facilitator Name Role Phone Provider, None Primary Care [...] . Behavioral Health On track(2020 3:21 PM CONSTRUCTION SPECIALIST) Yes Connie Rodney, SR. PAYROLL MANAGER Note: Goal Reviewed with: patient Readiness to change: Ready to change Department associated with goal: [facility] Steps to achieve [...] anxiety/depression Behavioral Health On track(2020 3:33 PM CONSTRUCTION SPECIALIST) No Heather Montez, SR. PAYROLL MANAGER Note: Department associated with goal: [facility] Goal Reviewed with: patient Readiness to change: Ready to change Department associated with goal: [facility] Steps to achieve goal: Goal Reviewed with: patient Readiness to change: Ready to change Department associated with goal: [facility] Steps to achieve [...] - 144 mmol/L 05/13/2018 6:06 AM CDT [facility] POTASSIUM 4.3 3.5 - 5.1 mmol/L 05/13/2018 6:06 AM [facility] CHLORIDE 99(L) 100 - 110 mmol/L 05/13/2018 6:06 AM [facility] CO2, VENOUS 23 22 - 32 mmol/L 05/13/2018 6:06 AM [facility] ANION GAP 17.3 8.0 - 20.0 mmol/L 05/13/2018 6:06 AM [facility] GLUCOSE 128(H) 70 - 99 mg/dL 05/13/2018 6:06 AM [facility] BUN 22(H) 6 - 20 mg/dL 05/13/2018 6:06 AM [facility] CREATININE, BLOOD 1.33(H) 0.80 - 1.30 mg/dL 05/13/2018 6:06 AM [facility] BUN/CREATININE RATIO 17 12 - 20 ratio 05/13/2018 6:06 AM [facility] TOTAL PROTEIN 7.7 6.0 - 8.3 g/dL 05/13/2018 6:06 AM [facility] ALBUMIN 3.4(L) 3.5 - 5.2 g/dL 05/13/2018 6:06 AM [facility] Comment: The colormetric methods used for the determination of Albumin may lead to falsely elevated test results in patients suffering from renal failure or insufficiency due to interference with other proteins. A/G RATIO 0.8(L) 1.0 - 2.0 05/13/2018 6:06 AM [facility] CALCIUM 9.1 8.9 - 10.3 mg/dL 05/13/2018 6:06 AM [facility] T BILI 0.4 <=1.2 mg/dL 05/13/2018 6:06 AM [facility] SGOT (AST) 18 <=40 U/L 05/13/2018 6:06 AM [facility] SGPT (ALT) 21 <=41 U/L 05/13/2018 6:06 AM CDT [facility] ALKALINE PHOSPHATASE 88 40 - 130 U/L 05/13/2018 6:06 AM CDT [facility] GFR, EST. NONAFRICAN 60 >=60 05/13/2018 6:06 AM CDT [facility] GFR, EST. >60 >=60 018 6:06 AM CDT [facility] Comment: Creatinine Clearance is the preferred criteria for selecting drug dose adjustments in renally impaired patients. The GFR is provided as additional pertinent clinical information. GFR is reported in mL/min/1.73 sq m. Blood specimen (specimen) Butterfly Puncture / Unknown 05/13/2018 4:39 AM CDT 05/13/2018 5:33 AM CDT us Shilpa Samuel APRN, CNP CHEMISTRY ORDERABLE S Final Result Performing Organization Address City/[facility] Co de Phone Number [facility] [address] [place] [address] * (ABNORMAL) Hemoglobin A1C w/ Estimated Glucose (05/10/2018 8:30 PM CDT) HGB-A1C 8.6(H) 4.0 - 6.0 % 05/10/2018 9:23 PM CDT [facility] Est Average Glucose 200.1 mg/dL 05/10/2018 9:23 PM CDT [facility] Blood specimen (specimen) Venous Catheter (IV) / Unknown 05/10/2018 8:30 PM CDT 05/10/2018 9:04 PM CDT Narrative [facility] - 05/10/2018 9:23 PM CDT HEMOGLOBIN A1C: DIABETIC PATIENTS: WELL-CONTROLLED: 6.2 - 7.0 INTERMEDIATE WELL-CONTROLLED: 7.0 - 9.0 POORLY-CONTROLLED: >9.0 us Jose Rodríguez MD CHEMISTRY ORDERABLES Renay l Result [facility] [address] [place] [address] from Last 3 Months or Most Recently Relevant to Health Maintenance Insurance [facility] Advance Directives * Full Code (Latest Code Status on File) Date Activated Date Inactivated Comments 05/10/2018 10:39 PM 05/13/2018 3:27 PM CPR-Full Tr eatment: FULL ARREST: Attempt Resuscitation/CPR wit intubation and mechanical ventilation. PRE-ARREST: Use entire range of life support measures to stabilize the patient. Care Teams Satellite Instruction Facilitator Relationship Specialty Start Date End Date Provider, Merry LARA PCP - General 05/10/18
--- OUTSIDE RECORDS SUMMARY | 2024-12-05 13:07 | XMS_ITS | Encounter Summary ---
Author Organization [facility] Address [address] [place] [address] Care Team Providers Care Target Man Name Role Phone Joel Hernandez MD Primary Care Provider [phone] Encounter Details Date Type Department Care Team (Late st Contact Info) Description 02/04/2007 Outpatient Historical [facility] Family [facility] - [place] [address] [facility] [address] [place] [address] Zen Díaz MD [address] [facility] 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
--- OUTSIDE RECORDS SUMMARY | 2024-12-05 13:08 | XMS_ITS | Clinical Summary ---
Author Organization 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
--- OUTSIDE RECORDS SUMMARY | 2024-12-05 13:08 | XMS_ITS | Clinical Summary ---
Author Organization [facility] Address [address] [place] [phone] Phone Care Team Providers Care Hospital Ward Clerk Name Role Phone Unavailable Primary Care Provider Unavailabl e Allergies No known active allergies Medications acetaminophen (TYLENOL) 325 MG tablet Take 650 mg by mouth every 6 hours as needed 5 Active Blood Glucose Monitoring Suppl (MASS-ACTIVE [employer] Verio Flex System) w/Device kit 1 Active Cholecalcifero l (Vitamin D3) 1.25 MG (31920 UT) capsule TAKE 1 CAPSULE BY MOUTH [...] Vaccine (Season Ended) 2025 10/10/[address] [address]
--- OUTSIDE RECORDS SUMMARY | 2024-12-05 13:08 | XMS_ITS | Clinical Summary ---
Author Organization [facility] Address [address] [place] [address] Care Team Providers Care Well Puller Head Name Role Phone Keli Daley RN Unavailable [phone] Mya Gross MD Primary Care Provider [phone] Source Comments [facility],non-owned Affiliates and Associated Physician Practices is amultiple site organization consisting of ambulatory clinics and hospital sitesin [place], [place], [place] and [place]. This disclosure is being madepursuant to the Care Everywhere program and may not contain all information available regarding this patient. Last updated 18.[facility] Allergies No known active allergies Medications * [...] meds at dx. Never on insulin. No greeting card writer. Hypertension 08/09/2014 Resolved Problems Problem Noted Date [...] on file Legal Sex Male 12:36 PM MOTOR AND GENERATOR BRUSH MAKER Gender Identity Not on file Sexual Orientation [...] URINE RANDOM PNL Routine 07/09/2022 11:06 AM MOTOR AND GENERATOR BRUSH MAKER Proteinuria, unspecified type Type 2 diabetes mellitus with hyperosmolarity without coma, without long-term current use of insulin HEPATITIS C ANTIBODY Routine 07/09/2022 11:06 AM MOTOR AND GENERATOR BRUSH MAKER Proteinuria, unspecified type Type 2 diabetes mellitus with hyperosmolarity without coma, without long-term current use of insulin HEMOGLOBIN A1C Routine 07/09/2022 11:06 AM MOTOR AND GENERATOR BRUSH MAKER Proteinuria, unspecified type Type 2 diabetes mellitus with hyperosmolarity without coma, without long-term current use of insulin HIV-1 HIV-2 ANTIBODY + HIV P24 AG PANEL Routine 07/09/2022 11:06 AM MOTOR AND GENERATOR BRUSH MAKER Type 2 diabetes mellitus with hyperosmolarity without coma, without long-term current use of insulin Proteinuria, unspecified type from Last 3 Months or Most Recently Relevant to Health Maintenance Results * (ABNORMAL) COMPREHENSIVE METABOLIC PANEL (03/19/2023 1:05 PM CDT) BUN 55(H) 7 - 26 mg/dL 03/19/2023 1:44 PM CDT [facility] Creatinine 7.58(H) 0.71 - 1.16 mg/dL 03/19/2023 1:44 PM CDT [facility] Sodium 138 136 - 145 mmol/L 03/19/2023 1:44 PM CDT [facility] Potassium 4.0 3.5 - [...] 03/19/2023 1:14 PM CDT us Lisa Yu DIESEL MOTOR MECHANIC-DECORATOR HAND LAB - CHEMISTRY [place] Final Result [address] [address], [facility] [phone] * HIV-1 HIV-2 ANTIBODY + HIV P24 AG PANEL (07/09/2022 11:06 AM MOTOR AND GENERATOR BRUSH MAKER) HIV Antigen/Antibod y 1 & 2 Non-reacti ve Non-react amaury 07/09/2022 12:51 PM [facility] Comment:No Laboratory eviden ce of HIV infection. Blood BLOOD SPECIMEN / Unknown Lab Venipuncture / Unknown 07/09/2022 11:06 AM MOTOR AND GENERATOR BRUSH MAKER 07/09/2022 11:59 AM MOTOR AND GENERATOR BRUSH MAKER us Chela Lanier MD LAB - CHEMISTRY ORDERABLES Final Result Performing Organization Address [facility] Co de Phone Number [address] [address], [facility] [phone] * (ABNORMAL) HEMOGLOBIN A1C (07/09/2022 11:06 AM MOTOR AND GENERATOR BRUSH MAKER) Hemoglobin A1c 6.6(H) <=5.6 % 07/09/2022 2:34 PM [facility] Estimated Average Glucose 143 mg/dL 07/09/2022 2:34 PM [facility] Comment: HbA1c Interpretation: Normal : < [...] Lab Venipuncture / Unknown 07/09/2022 11:06 AM MOTOR AND GENERATOR BRUSH MAKER 07/09/2022 12:04 PM MOTOR AND GENERATOR BRUSH MAKER us Chela Lanier MD LAB - CHEMISTRY ORDERABLES Final Result [address] [address], [facility] [phone] * (ABNORMAL) PROTEIN CREATININE RATIO URINE RANDOM PNL (07/09/2022 11:06 AM MOTOR AND GENERATOR BRUSH MAKER) Protein Urine 450 Not Established mg/dL 07/09/2022 1:03 PM [facility] Comment:Result obtained by d ilution. Creatinine Urine 43 Not Established mg/dL 07/09/2022 1:03 PM [facility] Comment:Result obtained by d ilution. Protein/Creati nine Ratio Urine 10.47(H) <0.10 07/09/2022 1:03 PM [facility] Urine URINE SPECIMEN OBTAINED BY CLEAN CATCH PROCEDURE / Unknown Collection / Unknown 07/09/2022 11:06 AM MOTOR AND GENERATOR BRUSH MAKER 07/09/2022 11:59 AM MOTOR AND GENERATOR BRUSH MAKER Result [facility] Chela Lanier MD LAB - URINE CHEMISTRY ORDERABLES Final Result Performing Organization Address City/[facility]/ZIP Co de Phone Number [address] [address], [facility] [phone] * HEPATITIS C ANTIBODY (07/09/2022 11:06 AM MOTOR AND GENERATOR BRUSH MAKER) [facility] Hepatitis C Antibody Non-react amaury Non-reac tive 07/09/2022 12:51 PM [facility] Comment:Hepatitis C Antibody screen indicates no serologic evidence of past or current infection with Hepatitis C Virus. Patients with unexplained liver disease who are immunocompromised or suspected of having acute Hepatitis C infection may benefit from Nucleic Acid Test (NICO) for Hepatitis C Viral RNA to confirm Hepatitis C status. Blood BLOOD SPECIMEN / Unknown Lab Venipuncture / Unknown 07/09/2022 11:06 AM MOTOR AND GENERATOR BRUSH MAKER 07/09/2022 11:59 AM MOTOR AND GENERATOR BRUSH MAKER Chela Lanier MD LAB - CHEMISTRY ORDERABLES Final Result [address] [place] [address], [facility] [phone] from Last 3 Months or Most Recently Relevant to Health Maintenance Insurance MEDICARE ANTHEM SELF PAY NO INSURANCE Member Subscriber Plan / Payer (Ef fective for All Dates) Name:Carlos Montana Member ID:Not on file Relation to Subscriber:Self Name:Carlos Montana Subscriber ID:Not on file Payer ID:Not on file Group ID:Not on file Type:Self Pay Address: [place], [place] Advance Directives * Full Code (Latest Code Status on File) Date Activated Date Inactivated Comments 10/08/2014 8:15 PM 10/10/2014 4:46 PM Care Teams Well Puller Head Relationship Specialty Start Date End Date Mya Gross MD [address] [place] [id number] PCP - General 01/21/22 Keli Daley RN Calibration Specialist 10/09/14
--- NOTE | 2024-12-05 13:11 | ED.GENADULT ---
HPI - General Adult General Chief complaint: Recheck/Abnormal Lab/Rx Stated complaint: Dr. Aquino sent to have dialysis cath changed Time Seen by Provider: 12/05/24 11:06 History of Present Illness HPI narrative: Patient is a 44-year-old male who presents ER due to having a malfunctioning dialysis catheter. It was placed last month. He is not being getting complete dialysis treatments due to the intermittently working catheter. Today no dialysis could be performed he was sent here to be evaluated for new catheter by surgery. He denies any medical elements/symptoms. Related Data Home Medications ?Medication ?Instructions ?Recorded ?Confirmed ?Last Taken ?Type calcitriol 0.25 mcg capsule 0.25 mcg PO DAILY 07/21/22 10/11/24 10/10/24 History metoprolol succinate 50 mg PO DAILY 07/22/22 10/11/24 10/10/24 History amlodipine 10 mg tablet 10 mg PO DAILY 10/11/24 10/11/24 10/10/24 History Allergies Allergy/AdvReac Type Severity Reaction Status Date / Time No Known Allergies Allergy Verified 12/05/24 09:37 Review of Systems Review of Systems: All systems reviewed & are unremarkable except as noted in HPI and below Constitutional: Constitutional: Reports no additional constitutional complaints Cardiovascular: Cardiovascular: Reports no additional cardiovascular complaints Respiratory: Respiratory: Reports no additional respiratory complaints Gastrointestinal: Gastrointestinal: Reports no additional gastrointestinal complaints [facility] Past Medical History Medical History Hyperphosphatemia associated with renal failure Non-compliance Renal failure Diabetes Hypertension Surgical History Surgical History No pertinent past surgical history Family History Family History Mother Diabetes mellitus Hypertension Grandparent Diabetes mellitus Hypertension Social History Social History Smoking status: Never smoker Second hand tobacco smoke exposure: No Alcohol intake: never Substance use: current Substance use type: marijuana Last use: 10/11/24 Do You Feel Safe in your Home?: Yes Lack of Transportation: No Lack of Food: Never True Current Housing: I Have Housing Concerned About Future Housing: No Difficulty Paying Gas/Electric Bills: No Difficulty Paying for Meds: No Currently Unemployed: No Education: Don't Know Difficulty w/ Childcare or Family Care: No Spiritual care concerns: No Exam Narrative: GENERAL: Well-appearing, well-nourished, and in no acute distress. HEAD: Normocephalic, atraumatic. ENT: Mucous membranes moist. CHEST: Clear to auscultation. No respiratory distress. Left-sided tunneled catheter left chest wall HEART: Regular rate and rhythm. Normal peripheral pulses. ABDOMEN: Soft, nontender, nondistended. EXTREMITIES: Normal range of motion. No edema. SKIN: Warm, dry, no rash. NEURO: Alert and oriented x3. PSYCH: Normal mood and affect. Course Course Emergency Course: Discussed with general surgery who would like patient admitted to Medicine. They will perform surgery tomorrow replace catheter. Vital Signs Vital signs: Vital Signs Temperature 97.8 F 12/05/24 09:42 Pulse Rate 92 12/05/24 09:42 Respiratory Rate 16 12/05/24 09:42 Blood Pressure 123/70 12/05/24 09:42 Pulse Oximetry 95 12/05/24 09:42 Oxygen Delivery Room Air 12/05/24 09:42 Temperature 97.8 F 12/05/24 09:42 Pulse Rate 92 12/05/24 09:42 Respiratory Rate 16 12/05/24 09:42 Blood Pressure 123/70 12/05/24 09:42 Pulse Oximetry 95 12/05/24 09:42 Oxygen Delivery Room Air 12/05/24 09:42 Medical Decision Making Vital Signs Vital Signs: Vital Signs Temperature 97.8 F 12/05/24 09:42 Pulse Rate 92 12/05/24 09:42 Respiratory Rate 16 12/05/24 09:42 Blood Pressure 123/70 12/05/24 09:42 Pulse Oximetry 95 12/05/24 09:42 Oxygen Delivery Room Air 12/05/24 09:42 Temperature 97.8 F 12/05/24 09:42 Pulse Rate 92 12/05/24 09:42 Respiratory Rate 16 12/05/24 09:42 Blood Pressure 123/70 12/05/24 09:42 Pulse Oximetry 95 12/05/24 09:42 Oxygen Delivery Room Air 12/05/24 09:42 Lab Data 12/05/24 11:42 12/05/24 11:42 Labs: Lab Results 12/05/24 Range/Units 11:42 WBC 12.8 H (4.5-10.0) K/mm3 RBC 2.75 L (4.6-6.20) M/mm3 Hgb 7.4 L (14.0-18.0) g/dL Hct 25.9 L (42.0-52.0) % MCV 94.2 (80-100) fl MCH 26.9 (26-34) pg MCHC 28.6 L (32-36) g/dl RDW 18.1 H (11.5-14.5) % Plt Count 233 (150-375) k/mm3 MPV 7.9 (7.4-10.4) fl Immature Gran % (Auto) 1.3 H (0-0.5) % Neut % (Auto) 78.8 H (45.5-73.1) % Lymph % (Auto) 9.8 L (18.3-44.2) % [place] % (Auto) 8.1 (2.6-8.5) % Eos % (Auto) 1.8 (0-4.4) % Baso % (Auto) 0.2 (0.2-1.2) % Lymph # (Auto) 1.25 (0.9-3.2) K/mm3 [place] # (Auto) 1.0 H (0.1-0.6) K/mm3 Eos # (Auto) 0.2 (0-0.3) K/mm3 Baso # (Auto) 0.0 (0.0-0.1) K/mm3 Abs Immat Gran (auto) 0.16 H (0.00-0.031) K/mm3 Absolute Neuts (auto) 10.1 H (1.3-6.7) K/mm3 Absolute Nucleated RBC 0.000 (0.0-0.012) K/mm3 Band Neutrophils % Not Reportable Nucleated RBC % 0.0 (0.0-0.2) % Platelet Estimate Adequate (Adequate) Hypochromasia 1+ Basophilic Stippling 1+ Anisocytosis 1+ Schistocytes None seen PT 13.9 (11.1-14.7) Seconds INR 1.0 APTT 27.9 (22.3-36.8) Seconds Sodium 140 (137-145) mmol/L Potassium 4.6 (3.4-5.0) mmol/L Chloride 99 (98-107) mmol/L Carbon Dioxide 22 (22-30) mmol/L Anion Gap 19 H (4-12) mmol/L BUN 62 H D (9-20) mg/dL Creatinine 8.45 H (0.7-1.3) mg/dL Estim Creat Clear Calc 10 ml/min Estimated GFR 7 L (59 - ) Glucose 76 (65-110) mg/dL Calcium 9.1 (8.4-10.2) mg/dL Total Bilirubin 0.3 (0.2-1.3) mg/dL AST 29 (17-59) U/L ALT 20 (6-50) U/L Alkaline Phosphatase 85 (38-126) U/L Total Protein 9.0 H (6.3-8.2) g/dL Albumin 3.9 (3.5-5.1) g/dL Discharge Plan Discharge Clinical Impression: Malfunction of peripheral inserted central catheter Patient Disposition: Still a Patient Condition: Stable
--- NOTE | 2024-12-05 16:39 | P.CONGS_ITS ---
Assessment and Plan Assessment and plan (1) Hemodialysis catheter dysfunction: Code(s): T82.41XA - Breakdown (mechanical) of vascular dialysis catheter, initial encounter Status: Acute Assessment and Plan: Patient with end-stage renal disease previously on peritoneal dialysis up until October of 2024 when he was treated for spontaneous bacterial peritonitis. He then had a left IJ tunneled hemodialysis catheter placed, which is no longer functioning. We have been consulted for replacement of a new tunneled central venous catheter for hemodialysis. We will plan to add him onto the surgery schedule in the next few days to exchange his hemodialysis catheter. (2) End stage renal disease: Code(s): N18.6 - End stage renal disease Status: Chronic Assessment and Plan: Still has his peritoneal dialysis catheter, which will eventually need to be removed or exchanged depending on Nephrology's plans. (3) Anemia: Qualifiers: Anemia type: iron deficiency Iron deficiency anemia type: unspecified iron deficiency Qualified Code(s): D50.9 - Iron deficiency anemia, unspecified Code(s): D64.9 - Anemia, unspecified Status: Chronic Assessment and Plan: Hgb 7.4. Repeat labs tomorrow. Will need transfused prior to surgery if 7.0 or below. (4) Diabetes: Code(s): E11.9 - Type 2 diabetes mellitus without complications Status: Acute Plan I have discussed the patient's case and plan of care with Dr. Keenan. History of Present Illness Consult details Consult date: 12/05/24 Reason for consult: other (Dialysis catheter replacement) Requesting physician: Munir Perez MD Narrative: This is a 44-year-old man with end-stage renal disease that was previously on peritoneal dialysis up until October when he was hospitalized with spontaneous bacterial peritonitis likely due to infected peritoneal dialysis graft. He was admitted and treated for his peritonitis and had a left IJ tunneled dura flow central venous catheter inserted by Dr. Mishra on 10/13/2024 to initiate hemodialysis. He was eventually discharged and has been receiving hemodialysis on Wednesday, , and Wednesday. He reports having issues with the tunneled catheter during dialysis over the past few weeks. He reports they are able to do some, but not all of his dialysis treatment at times. Today, he went for dialysis and they were unable to do dialysis as the catheter was not functioning. He was referred to the ED for an exchange of his dialysis catheter. He is now seen in the ED. He was last dialyzed on Wednesday. Patient is sitting comfortably in the ER with no other specific complaints. He denies any shortness of breath. He states that he was going to be scheduled to switched back to peritoneal dialysis and was going to have an exchange of his catheter. Review of Systems 2 Review of Systems: All systems reviewed & are unremarkable except as noted in HPI and below PMFSH Past Medical History Medical History Hyperphosphatemia associated with renal failure Non-compliance Renal failure Diabetes Hypertension Surgical History Surgical History No pertinent past surgical history Family History Family History Mother Diabetes mellitus Hypertension Grandparent Diabetes mellitus Hypertension Social History Social History Smoking status: Never smoker Second hand tobacco smoke exposure: No Alcohol intake: never Substance use: current Substance use type: marijuana Last use: 10/11/24 Do You Feel Safe in your Home?: Yes Lack of Transportation: No Lack of Food: Never True Current Housing: I Have Housing Concerned About Future Housing: No Difficulty Paying Gas/Electric Bills: No Difficulty Paying for Meds: No Currently Unemployed: No Education: Don't Know Difficulty w/ Childcare or Family Care: No Spiritual care concerns: No Meds Home Medications and Allergies Home Medications ?Medication ?Instructions ?Recorded ?Confirmed ?Type calcitriol 0.25 mcg capsule 0.25 mcg PO DAILY 07/21/22 10/11/24 History metoprolol succinate 50 mg PO DAILY 07/22/22 10/11/24 History bupropion HCl 150 mg 24 hr tablet, 150 mg PO QAM #90 tabs 08/07/24 10/11/24 Rx extended release (Wellbutrin XL) amlodipine 10 mg tablet 10 mg PO DAILY 10/11/24 10/11/24 History amoxicillin 500 mg-potassium 1 tablet PO Q12HR #4 tabs 10/19/24 Rx clavulanate 125 mg tablet (Augmentin) calcium acetate(phosphat bind) 667 1,334 mg (2 x 667 mg) PO TIDWM 10/19/24 Rx mg tablet #240 tabs gentamicin 0.1 % topical ointment 1 applic topical DAILY #30 grams 10/19/24 Rx hydrocodone 5 mg-acetaminophen 325 1 tablet PO Q4H PRN Pain 4-10 #15 10/19/24 Rx mg tablet tabs lactulose 10 gram/15 mL oral 20 g (30 mL) PO QAM #1,000 mL 10/19/24 Rx solution polyethylene glycol 3350 17 gram 17 g PO BID #14 ea 10/19/24 Rx oral powder packet (Miralax) escitalopram oxalate 20 mg tablet 20 mg PO DAILY #90 tabs 11/13/24 Rx (Lexapro) Allergies Allergy/AdvReac Type Severity Reaction Status Date / Time No Known Allergies Allergy Verified 12/05/24 09:37 Vital Signs Vital Signs - 24 hr 12/05/24 09:42 Temperature 97.8 F Pulse Rate 92 Respiratory Rate 16 Blood Pressure 123/70 Pulse Oximetry 95 Oxygen Delivery Room Air Exam 2 Const: General: comfortable and no acute distress Nutritional Appearance: a verage body habitus Orientation/consciousness: patient oriented x3 HENMT: Head: normocephalic and atraumatic Ears: hearing grossly normal bilaterally Mouth: Yes moist mucous membranes Eyes: General: appearance normal, both eyes and all related structures P upils: Equal, round and reactive pupils present Neck: Neck: normal visual inspection and full ROM Chest: Other: Left chest tunneled dialysis catheter in place with dressing dry and intact. Counter incisions at the left neck are well healed with no erythema or signs of infection. Resp: Effort & Inspection: no respiratory distress Auscultation: clear to auscultation bilaterally Cardio: Rate: regular rate Rhythm: regular rhythm Peripheral pulses: P eripheral pulses 2+ throughout GI: Inspection: non-distended GI Palp: Yes Soft to palpation, No Tenderness to palpation present (GI), No Guarding due to palpation present (GI) and No Rebound tenderness present Auscultation: normal bowel sounds Other: Left lower quadrant peritoneal dialysis catheter in place with dressing dry and intact. Skin: General skin exam: normal color Neuro: General: moves all extremities and no focal motor deficits Speech: n ormal speech Motor exam (neuro): 5/5 motor strength present throughout Extrem: General: normal to inspection and no edema Psych: Mental Status: mental status grossly normal Attitude: cooperative Insight: Good insight present (Psych) Judgement: Good judgement present (Psych) Results Labs 12/05/24 11:42 12/05/24 11:42 Labs: Abnormal lab results 12/05/24 Range/Units 11:42 WBC 12.8 H (4.5-10.0) K/mm3 RBC 2.75 L (4.6-6.20) M/mm3 Hgb 7.4 L (14.0-18.0) g/dL Hct 25.9 L (42.0-52.0) % MCHC 28.6 L (32-36) g/dl RDW 18.1 H (11.5-14.5) % Immature Gran % (Auto) 1.3 H (0-0.5) % Neut % (Auto) 78.8 H (45.5-73.1) % Lymph % (Auto) 9.8 L (18.3-44.2) % [place] # (Auto) 1.0 H (0.1-0.6) K/mm3 Abs Immat Gran (auto) 0.16 H (0.00-0.031) K/mm3 Absolute Neuts (auto) 10.1 H (1.3-6.7) K/mm3 Anion Gap 19 H (4-12) mmol/L BUN 62 H D (9-20) mg/dL Creatinine 8.45 H (0.7-1.3) mg/dL Estimated GFR 7 L (59 - ) Total Protein 9.0 H (6.3-8.2) g/dL Diabetes panel 12/05/24 Range/Units 11:42 Sodium 140 (137-145) mmol/L Potassium 4.6 (3.4-5.0) mmol/L Chloride 99 (98-107) mmol/L Carbon Dioxide 22 (22-30) mmol/L BUN 62 H D (9-20) mg/dL Creatinine 8.45 H (0.7-1.3) mg/dL Glucose 76 (65-110) mg/dL Calcium 9.1 (8.4-10.2) mg/dL AST 29 (17-59) U/L ALT 20 (6-50) U/L Alkaline Phosphatase 85 (38-126) U/L Total Protein 9.0 H (6.3-8.2) g/dL Albumin 3.9 (3.5-5.1) g/dL Calcium panel 12/05/24 Range/Units 11:42 Calcium 9.1 (8.4-10.2) mg/dL Albumin 3.9 (3.5-5.1) g/dL Pituitary panel 12/05/24 Range/Units 11:42 Sodium 140 (137-145) mmol/L Potassium 4.6 (3.4-5.0) mmol/L Chloride 99 (98-107) mmol/L Carbon Dioxide 22 (22-30) mmol/L BUN 62 H D (9-20) mg/dL Creatinine 8.45 H (0.7-1.3) mg/dL Glucose 76 (65-110) mg/dL Calcium 9.1 (8.4-10.2) mg/dL Adrenal panel 12/05/24 Range/Units 11:42 Sodium 140 (137-145) mmol/L Potassium 4.6 (3.4-5.0) mmol/L Chloride 99 (98-107) mmol/L Carbon Dioxide 22 (22-30) mmol/L BUN 62 H D (9-20) mg/dL Creatinine 8.45 H (0.7-1.3) mg/dL Glucose 76 (65-110) mg/dL Calcium 9.1 (8.4-10.2) mg/dL Total Bilirubin 0.3 (0.2-1.3) mg/dL AST 29 (17-59) U/L ALT 20 (6-50) U/L Alkaline Phosphatase 85 (38-126) U/L Total Protein 9.0 H (6.3-8.2) g/dL Albumin 3.9 (3.5-5.1) g/dL All other labs normal. Imaging Additional studies: ITS Impressions Chest X-Ray 12/05/24 11:40 IMPRESSION: Right basilar atelectasis versus pneumonia seen laterally.
--- NOTE | 2024-12-05 17:36 | ADMGEN ---
This patient, Carlos Montana, was admitted to Medical Room 260-. Patient/family oriented to hospital policies and general routines including ID bracelet, bed and alarms, visiting hours, pain management, procedures, bathroom and other care routines, personal items, smoking policy, room service/diet, and visiting hours. Information on how to activate the Rapid Response Team has been discussed. Patient/Family are encouraged to report perceived risks to care and to ask questions if they do not understand what they are told or what they should do.
[2024-12-05 17:48] VITALS: BMI 29.0
--- NOTE | 2024-12-05 18:12 | P.HP_ITS ---
H&P: HPI History of Present Illness Date/Time: 12/05/24 18:12 Chief Complaint: HD catheter dysfunction Missed dialysis Narrative: This is a 44-year-old male with a significant past medical history of hypertension, diabetes, end-stage renal failure on dialysis since October this year, marijuana abuse who presented to the hospital with hemodialysis catheter dysfunction. Patient states has last dialysis was on Wednesday which he completed without any issues. Today when he went for his dialysis they were unable to flush dialysis port. He was sent here for further evaluation and likely an exchange of his dialysis catheter Workup in the hospital included a chest x-ray which shown right basilar atelectasis. Initial labs showed a white blood cell count of 12.8, hemoglobin 7.4, INR 1.0, anion gap 19, BUN 62, c reatinine 8.45, potassium 4.6. General surgery was consulted for HD catheter exchange. Nephrology also consulted. Review of Systems Review of Systems: All systems reviewed & are unremarkable except as noted in HPI and below PMFSH Past Medical History Medical History Hyperphosphatemia associated with renal failure Non-compliance Renal failure Diabetes Hypertension Surgical History Surgical History No pertinent past surgical history Family History Family History Mother Diabetes mellitus Hypertension Grandparent Diabetes mellitus Hypertension Social History Social History Smoking status: Never smoker Second hand tobacco smoke exposure: No Alcohol intake: never Substance use: current Substance use type: marijuana Last use: 12/04/2024 Do You Feel Safe in your Home?: Yes Lack of Transportation: No Lack of Food: Never True Current Housing: I Have Housing Concerned About Future Housing: No Difficulty Paying Gas/Electric Bills: No Difficulty Paying for Meds: No Currently Unemployed: No Education: High School Diploma/GED Difficulty w/ Childcare or Family Care: No Spiritual care concerns: No Meds Home Medications and Allergies Home Medications ?Medication ?Instructions ?Recorded ?Confirmed ?Type calcitriol 0.25 mcg capsule 0.25 mcg PO DAILY 07/21/22 12/05/24 History metoprolol succinate 50 mg PO DAILY 07/22/22 12/05/24 History bupropion HCl 150 mg 24 hr tablet, 150 mg PO QAM #90 tabs 08/07/24 12/05/24 Rx extended release (Wellbutrin XL) calcium acetate(phosphat bind) 667 1,334 mg (2 x 667 mg) PO TIDWM 10/19/24 12/05/24 Rx mg tablet #240 tabs gentamicin 0.1 % topical ointment 1 applic topical DAILY #30 grams 10/19/24 12/05/24 Rx lactulose 10 gram/15 mL oral 20 g (30 mL) PO QAM #1,000 mL 10/19/24 12/05/24 Rx solution escitalopram oxalate 20 mg tablet 20 mg PO DAILY #90 tabs 11/13/24 12/05/24 Rx (Lexapro) metoprolol succinate 100 mg 100 mg PO DAILY 12/05/24 12/05/24 History tablet,extended release 24 hr nifedipine 60 mg tablet,extended 60 mg PO DAILY 12/05/24 12/05/24 History release polyethylene glycol 3350 17 gram 17 g PO BID PRN constipation 12/05/24 12/05/24 History oral powder packet (Miralax) Allergies Allergy/AdvReac Type Severity Reaction Status Date / Time No Known Allergies Allergy Verified 12/05/24 17:46 Vital Signs Vital Signs - 24 hr 12/05/24 09:42 Temperature 97.8 F Pulse Rate 92 Respiratory Rate 16 Blood Pressure 123/70 Pulse Oximetry 95 Oxygen Delivery Room Air Exam Narrative: General: In no acute distress, well nourished Head: atraumatic, no encephalopathy Eyes: PERRLA, sclera clear ENT: moist mucous membranes, nasal passages clear Neck: supple, no JVD, no adenopathy, trachea midline Cardiac: Normal S1 and S2. No murmur, gallops or friction rubs, peripheral pulses intact. Left chest tunneled dialysis catheter in place with dressing Respiratory: Lungs clear to auscultation, no adventitious lung sounds currently on room air Gastrointestinal: soft, non-distended, non-tender, normoactive bowel sounds. Left lower quadrant peritoneal dialysis catheter in place : voiding without difficulty. Extremities: moves all extremities well, no edema Skin: clean, dry, intact. No wounds or lesions. Neuro: Alert and oriented x4, cranial nerves intact, no neuro deficits. Psych: normal mood, normal affect, interactive H&P: Results Labs Labs: Short CBC 12/05/24 Range/Units 11:42 WBC 12.8 H (4.5-10.0) K/mm3 Hgb 7.4 L (14.0-18.0) g/dL Hct 25.9 L (42.0-52.0) % Plt Count 233 (150-375) k/mm3 BMP 12/05/24 11:42 Sodium 140 Potassium 4.6 Chloride 99 Carbon Dioxide 22 BUN 62 H D Creatinine 8.45 H Glucose 76 Calcium 9.1 Liver Function 12/05/24 Range/Units 11:42 Total Bilirubin 0.3 (0.2-1.3) mg/dL AST 29 (17-59) U/L ALT 20 (6-50) U/L Alkaline Phosphatase 85 (38-126) U/L Albumin 3.9 (3.5-5.1) g/dL Imaging Chest x-ray: Radiologist's impression: XR chest 2V Ordering provider: Munir Perez MD History: 44 years Male with . catheter eval . Comparison: October 13, 2024 FINDINGS: MEDIASTINUM: The cardiac silhouette is slightly enlarged. Left permacath with the tip overlying superior vena cava. LUNGS: No effusions or pneumothorax. Minimal opacification the right lower lobe laterally. OTHER: No free air under the diaphragm. IMPRESSION: Right basilar atelectasis versus pneumonia seen laterally. Reviewed, dictated and finalized at location A. Assessment and Plan Assessment and plan (1) Malfunction of peripheral inserted central catheter: Code(s): T82.598A - Other mechanical complication of other cardiac and vascular devices and implants, initial encounter Status: Acute Assessment and Plan: Patient presented with non working HD catheter, he was sent by Dr. Aquino for catheter exchange * Chest x-ray was essentially negative * General surgery consulted for HD catheter exchange * NPO after midnight (2) End stage renal disease: Code(s): N18.6 - End stage renal disease Status: Chronic Assessment and Plan: Patient was initially on CCPD up until October of this year when he had a spontaneous bacterial peritonitis and a temporary HD catheter was placed on 10/13/2024. He now returns with dysfunction the HD catheter with need for exchange. * Currently on Wednesday dialysis--follows with Dr. Aquino * BUN 62, Creatinine 8.45, eGFR 7 * Missed dialysis today due to nonfunctioning HD catheter * Nephrology consulted * Will likely need dialysis after new tunneled catheter is placed (3) Hypertension: Code(s): I10 - Essential (primary) hypertension Status: Acute Assessment and Plan: * Blood pressure ranging 123/70 to 169/90 * Continue nifedipine and metoprolol (4) Hypertriglyceridemia: Code(s): E78.1 - Pure hyperglyceridemia Status: Acute Assessment and Plan: * Triglycerides 183 (5) Diabetes: Code(s): E11.9 - Type 2 diabetes mellitus without complications Status: Acute Assessment and Plan: * Blood sugar 76 * Hgb A1C 6.1 * Accu checks AC/HS * Moderate dose SSI ordered * hypoglycemic protocol in place * Renal dialysis diet ordered Quality VTE Prophylaxis VTE prophylaxis: mechanical ordered Hospitalist MIPS Advance Care Plan I have confirmed that the patient's Advanced Care Plan is present, code status is documented, or surrogate decision maker is listed in patient medical record.: Yes Medication Reconciliation I have utilized all available resources to obtain, update and review the patients current medications (includes all prescriptions, OTC, herbals, cannabis, and nutritional supplements).: Yes
[2024-12-05 18:35] VITALS: BP 148/84; PULSE 102; RESP 22; TEMP 36.7; O2SAT 91
[2024-12-05 19:20] LABS: MRSA (PCR) NOT DETECTED (NOT DETECTE)
[2024-12-05 20:19] LABS: Triglycerides 183 mg/dL (<150)
[2024-12-05] MEDS: ACETAMINOPHEN 325 MG TABLET 650 MG PO (20:45)
[2024-12-05 20:50] LABS: Glucose Point of Care 94 mg/dl (65-105)
[2024-12-05 21:07] VITALS: BP 153/82; PULSE 105; RESP 24; TEMP 36.7; O2SAT 92
[2024-12-05 22:11] VITALS: PULSE 105; RESP 20; O2SAT 92
[2024-12-06] VITALS (8 sets, daily range): BP systolic 150–187; BP diastolic 84–102; PULSE 80–102; RESP 17–22; TEMP 36.7–36.8; O2SAT 90–95
[2024-12-06 05:24] LABS: Basophils Percent Auto 0.4 % (0.2-1.2); Eosinophils Absolute Auto 0.2 K/mm3 (0-0.3); Eosinophils Percent Auto 1.5 % (0-4.4); Hematocrit 26.3 % (42.0-52.0); Hemoglobin 7.6 g/dL (14.0-18.0); Immature Granulocyte Absolute 0.09 K/mm3 (0.00-0.031); Immature Granulocyte Percent A 0.8 % (0-0.5); Lymphocytes Absolute Auto 0.84 K/mm3 (0.9-3.2); Lymphocytes Percent Auto 7.7 % (18.3-44.2); Mean Corpuscular HGB Conc 28.9 g/dl (32-36); Mean Corpuscular Hemoglobin 26.7 pg (26-34); Mean Corpuscular Volume 92.3 fl (80-100); Mean Platelet Volume 8.3 fl (7.4-10.4); Monocytes Absolute Auto 0.8 K/mm3 (0.1-0.6); Neutrophils Percent Auto 82.6 % (45.5-73.1); Platelet Count Result 261 k/mm3 (150-375); Red Blood Count 2.85 M/mm3 (4.6-6.20); Red Cell Distribution Width 18.2 % (11.5-14.5); White Blood Count 10.9 K/mm3 (4.5-10.0)
[2024-12-06 05:33] LABS: Alanine Aminotransferase 19 U/L (6-50); Albumin Level 3.9 g/dL (3.5-5.1); Alkaline Phosphatase 91 U/L (38-126); Anion Gap 21 mmol/L (4-12); Aspartate Amino Transferase 26 U/L (17-59); Bilirubin,Total 0.4 mg/dL (0.2-1.3); Blood Urea Nitrogen 68 mg/dL (9-20); Calcium 9.3 mg/dL (8.4-10.2); Carbon Dioxide 17 mmol/L (22-30); Chloride 99 mmol/L (98-107); Estimated CRCL calculation 9 ml/min; Estimated Glomerular Filt Rate 6; Glucose 76 mg/dL (65-110); Sodium 137 mmol/L (137-145)
[2024-12-06 05:48] LABS: Band Neutrophils Percent 0 % (0-6)
[2024-12-06 05:49] LABS: Ovalocytes 1+; Platelet Estimate Adequate (Adequate); Schistocytes None Seen
[2024-12-06 08:08] LABS: Glucose Point of Care 67 mg/dl (65-105)
[2024-12-06] MEDS: DEXTROSE 50% 25 GM/50 ML SYRINGE IV PUSH (08:14)
[2024-12-06] MEDS: DEXTROSE 5%/0.9% SOD CHL 1,000 ML 50 ML IV CONT (09:11)
[2024-12-06 11:00] LABS: Glucose Point of Care 104 mg/dl (65-105)
[2024-12-06 12:04] LABS: Glucose Point of Care 79 mg/dl (65-105)
[2024-12-06] MEDS: calcitrioL 0.25 MCG CAPSULE PO (12:10)
[2024-12-06] MEDS: ESCITALOPRAM OXALATE 10 MG TABLET 20 MG PO (12:10)
[2024-12-06] MEDS: NIFEdipine 30 MG TAB.ER.24 60 MG PO (12:10)
[2024-12-06] MEDS: buPROPion HCL XL (24 HR) 150 MG TABCR PO (12:10)
[2024-12-06] MEDS: CALCIUM ACETATE 667 MG TABLET 1334 MG PO ×2 (12:11→16:59)
[2024-12-06] MEDS: METOPROLOL SUCCINATE EXT REL 100 MG TABCR PO (12:11)
--- NOTE | 2024-12-06 13:08 | P.PNIM_ITS ---
Progress Note: A&P Assessment and Plan (1) Malfunction of peripheral inserted central catheter: Code(s): T82.598A - Other mechanical complication of other cardiac and vascular devices and implants, initial encounter Status: Acute Assessment and Plan: Patient presented with non working HD catheter, he was sent by Dr. Aquino for catheter exchange * Chest x-ray was essentially negative * General surgery consulted for HD catheter exchange * NPO after midnight (2) End stage renal disease: Code(s): N18.6 - End stage renal disease Status: Chronic Assessment and Plan: Patient was initially on CCPD up until October of this year when he had a spontaneous bacterial peritonitis and a temporary HD catheter was placed on 10/13/2024. He now returns with dysfunction the HD catheter with need for exchange. * Currently on Wednesday dialysis--follows with Dr. Aquino * BUN 62, Creatinine 8.45, eGFR 7 * Missed dialysis today due to nonfunctioning HD catheter * Nephrology consulted * Will likely need dialysis after new tunneled catheter is placed * NPO after midnight (3) Hypertension: Code(s): I10 - Essential (primary) hypertension Status: Acute Assessment and Plan: * Blood pressure ranging 123/70 to 169/90 * Continue nifedipine and metoprolol (4) Hypertriglyceridemia: Code(s): E78.1 - Pure hyperglyceridemia Status: Acute Assessment and Plan: * Triglycerides 183 (5) Diabetes: Code(s): E11.9 - Type 2 diabetes mellitus without complications Status: Acute Assessment and Plan: * Blood sugar 76 * Hgb A1C 6.1 * Accu checks AC/HS * Moderate dose SSI ordered * hypoglycemic protocol in place * Renal dialysis diet ordered Subjective Date/time seen: 12/06/24 13:08 Interval history: interval history: This is a 44-year-old male with a significant past medical history of hypertension, diabetes, end-stage renal failure on dialysis since October this year, marijuana abuse who presented to the hospital with hemodialysis catheter dysfunction. Patient states has last dialysis was on Wednesday which he completed without any issues. Today when he went for his dialysis they were unable to flush dialysis port. He was sent here for further evaluation and likely an exchange of his dialysis catheter Workup in the hospital included a chest x-ray which shown right basilar atelectasis. Initial labs showed a white blood cell count of 12.8, hemoglobin 7.4, INR 1.0, anion gap 19, BUN 62, creatinine 8.45, potassium 4.6. General surgery was consulted for HD catheter exchange. Nephrology also consulted. subjective: Patient denies any new complaints today. Labs reviewed. Review of Systems Review of Systems: All systems reviewed & are unremarkable except as noted in HPI and below Exam Narrative: General: In no acute distress, well nourished Cardiac: Normal S1 and S2. No murmur, gallops or friction rubs, peripheral pulses intact. Left chest tunneled dialysis catheter in place with dressing Respiratory: Lungs clear to auscultation, no adventitious lung sounds currently on room air Gastrointestinal: soft, non-distended, non-tender, normoactive bowel sounds. Left lower quadrant peritoneal dialysis catheter in place : voiding without difficulty. Neuro: Alert and oriented x4 Objective Data Vital Signs Vital Signs: Vital Signs - 24 hr 12/05/24 18:35 12/05/24 20:00 12/05/24 21:07 Temperature 98.0 F 98.0 F Pulse Rate 102 H 105 H Respiratory Rate 22 H 24 H Blood Pressure 148/84 H 153/82 H Pulse Oximetry 91 92 Oxygen Delivery Room Air Fraction of Inspired Oxygen 12/05/24 22:11 12/06/24 00:02 12/06/24 02:08 Temperature Pulse Rate 105 H 80 100 Respiratory Rate 20 20 Blood Pressure Pulse Oximetry 92 95 94 Oxygen Delivery Room Air CPAP Room Air Fraction of Inspired Oxygen 21 21 12/06/24 06:00 12/06/24 08:00 12/06/24 12:09 Temperature 98.0 F Pulse Rate 99 102 H Respiratory Rate 22 H Blood Pressure 173/94 H 187/102 H Pulse Oximetry 90 92 90 Oxygen Delivery Room Air Fraction of Inspired Oxygen 12/06/24 12:11 Temperature Pulse Rate 102 H Respiratory Rate Blood Pressure Pulse Oximetry Oxygen Delivery Fraction of Inspired Oxygen Intake/Output Intake/Output: Intake & Output 12/03/24 12/04/24 12/05/24 12/06/24 23:59 23:59 23:59 23:59 Intake Total 240 300 Balance 240 300 Meds/Results Medications: Active Medications Generic Name Dose Route Start Last Admin Trade Name Freq PRN Reason Stop Dose Admin Acetaminophen 650 mg 12/05/24 16:11 12/05/24 20:45 Acetaminophen 325 Mg Tablet PO 650 mg Q4H PRN Administration Mild Pain (1-3) or Fever Hydrocodone Bitart/Acetaminophen 1 tab 12/05/24 16:11 Hydrocodone/Acetaminophen (*Crx) 5-325 Mg Tablet PO Q4H PRN Pain Rated 4-6 Bupropion HCl 150 mg 12/06/24 09:00 12/06/24 12:10 Bupropion Hcl Xl (24 Hr) 150 Mg Tabcr PO 150 mg QAM DANA Administration Calcitriol 0.25 mcg 12/06/24 09:00 12/06/24 12:10 Calcitriol 0.25 Mcg Capsule PO 0.25 mcg DAILY DANA Administration Calcium Acetate 1,334 mg 12/06/24 08:00 12/06/24 12:11 Calcium Acetate 667 Mg Tablet PO 1,334 mg TIDWM DANA Administration Dextrose 12.5 gm 12/05/24 18:33 12/06/24 08:14 Dextrose 50% 25 Gm/50 Ml Syringe IV PUSH 12.5 gm PRN PRN Administration Hypoglycemia Protocol Escitalopram Oxalate 20 mg 12/06/24 09:00 12/06/24 12:10 Escitalopram Oxalate 10 Mg Tablet PO 20 mg DAILY DANA Administration Glucagon 1 mg 12/05/24 18:33 Glucagon For Inj 1 Mg Vial IM PRN PRN Hypoglycemia Protocol Glucose 15 gm 12/05/24 18:33 Glucose Oral Gel 15 Gm Of Glucse In 37.5 Gm Tube PO PRN PRN Hypoglycemia Protocol Dextrose 1,000 mls @ 100 mls/hr 12/05/24 18:33 Dextrose 5% 1,000 Ml IVPB PRN PRN Hypoglycemia Protocol Dextrose/Sodium Chloride 1,000 mls @ 50 mls/hr 12/06/24 08:30 12/06/24 09:11 Dextrose 5% Sodium Chloride 0.9% IV CONT 50 mls/hr .Q20H DANA Administration Insulin Aspart 1 - 3 units 12/05/24 21:00 12/05/24 20:41 Insulin Aspart (*Bkc) 100 Units/Ml SUB-Q Not Given HS DANA Protocol Insulin Aspart 3 - 6 units 12/06/24 08:00 12/06/24 12:15 Insulin Aspart (*Bkc) 100 Units/Ml SUB-Q Not Given TIDWM [facility] Protocol Metoprolol Succinate 100 mg 12/06/24 09:00 12/06/24 12:11 Metoprolol Succinate Ext Rel 100 Mg Tabcr PO 100 mg DAILY DANA Administration Nifedipine 60 mg 12/06/24 09:00 12/06/24 12:10 Nifedipine 30 Mg Tab.Er.24 PO 60 mg DAILY DANA Administration Ondansetron HCl 4 mg 12/05/24 16:11 Ondansetron Inj 4 Mg/2 Ml Vial IV PUSH Q4H PRN Nausea Polyethylene Glycol 17 gm 12/05/24 18:48 Polyethylene Glycol 3350 17 Gm Powd.Pack PO BID PRN constipation Radiology Results: ITS Impressions Chest X-Ray 12/05/24 11:40 IMPRESSION: Right basilar atelectasis versus pneumonia seen laterally. Labs Labs: Laboratory Results - last 24 hr 12/05/24 12/05/24 12/05/24 17:59 19:54 20:41 WBC RBC Hgb Hct MCV MCH MCHC RDW Plt Count MPV Immature Gran % (Auto) Neut % (Auto) Lymph % (Auto) [place] % (Auto) Eos % (Auto) Baso % (Auto) Lymph # (Auto) [place] # (Auto) Eos # (Auto) Baso # (Auto) Abs Immat Gran (auto) Absolute Neuts (auto) Absolute Nucleated RBC Band Neutrophils % Nucleated RBC % Platelet Estimate Ovalocytes Schistocytes Sodium Potassium Chloride Carbon Dioxide Anion Gap BUN Creatinine Estim Creat Clear Calc Estimated GFR Glucose POC Capillary Glucose 94 Calcium Total Bilirubin AST ALT Alkaline Phosphatase Total Protein Albumin Triglycerides 183 H Nasal MRSA (PCR) Not detected Blood Type Antibody Screen 12/06/24 12/06/24 12/06/24 05:00 08:05 08:33 WBC 10.9 H RBC 2.85 L Hgb 7.6 L Hct 26.3 L MCV 92.3 MCH 26.7 MCHC 28.9 L RDW 18.2 H Plt Count 261 MPV 8.3 Immature Gran % (Auto) 0.8 H Neut % (Auto) 82.6 H Lymph % (Auto) 7.7 L [place] % (Auto) 7.0 Eos % (Auto) 1.5 Baso % (Auto) 0.4 Lymph # (Auto) 0.84 L [place] # (Auto) 0.8 H Eos # (Auto) 0.2 Baso # (Auto) 0.0 Abs Immat Gran (auto) 0.09 H Absolute Neuts (auto) 9.0 H Absolute Nucleated RBC 0.000 Band Neutrophils % 0 Nucleated RBC % 0.0 Platelet Estimate Adequate Ovalocytes 1+ Schistocytes None seen Sodium 137 Potassium 5.0 Chloride 99 Carbon Dioxide 17 L Anion Gap 21 H BUN 68 H Creatinine 9.37 H Estim Creat Clear Calc 9 Estimated GFR 6 L Glucose 76 POC Capillary Glucose 67 104 Calcium 9.3 Total Bilirubin 0.4 AST 26 ALT 19 Alkaline Phosphatase 91 Total Protein 9.0 H Albumin 3.9 Triglycerides Nasal MRSA (PCR) Blood Type A Positive Antibody Screen Negative 12/06/24 12:01 WBC RBC Hgb Hct MCV MCH MCHC RDW Plt Count MPV Immature Gran % (Auto) Neut % (Auto) Lymph % (Auto) [place] % (Auto) Eos % (Auto) Baso % (Auto) Lymph # (Auto) [place] # (Auto) Eos # (Auto) Baso # (Auto) Abs Immat Gran (auto) Absolute Neuts (auto) Absolute Nucleated RBC Band Neutrophils % Nucleated RBC % Platelet Estimate Ovalocytes Schistocytes Sodium Potassium Chloride Carbon Dioxide Anion Gap BUN Creatinine Estim Creat Clear Calc Estimated GFR Glucose POC Capillary Glucose 79 Calcium Total Bilirubin AST ALT Alkaline Phosphatase Total Protein Albumin Triglycerides Nasal MRSA (PCR) Blood Type Antibody Screen Quality VTE Prophylaxis VTE prophylaxis: mechanical ordered
--- NOTE | 2024-12-06 14:48 | P.PNGS_ITS ---
Progress Note: A&P Assessment and Plan (1) Hemodialysis catheter dysfunction: Code(s): T82.41XA - Breakdown (mechanical) of vascular dialysis catheter, initial encounter Status: Acute Assessment and Plan: Plan to proceed with exchange of tunneled central venous catheter for hemodialysis by Dr. Keenan possibly tomorrow. Description of the procedure, risks, benefits, and expected outcomes were discussed with the patient. He agrees to proceed. Will make him NPO after midnight. (2) End stage renal disease: Code(s): N18.6 - End stage renal disease Status: Chronic Assessment and Plan: Still has his peritoneal dialysis catheter, which will eventually need to be removed. (3) Anemia: Qualifiers: Anemia type: iron deficiency Iron deficiency anemia type: unspecified iron deficiency Qualified Code(s): D50.9 - Iron deficiency anemia, unspecified Code(s): D64.9 - Anemia, unspecified Status: Chronic Assessment and Plan: Chronic anemia. Hgb 7.6. Repeat labs tomorrow. Will need transfused prior to surgery if 7.0 or below. (4) Diabetes: Code(s): E11.9 - Type 2 diabetes mellitus without complications Status: Acute Plan I have discussed the patient's case and plan of care with Dr. Keenan. Subjective Subjective Date/Time Seen: 12/06/24 14:48 Patient reports: no new complaints Interval history: No acute changes overnight. Exam Narrative: Left chest tunneled dialysis cath with gauze dressing intact Const: General: comfortable and no acute distress Objective Data Vital Signs Vital Signs: Vital Signs - 24 hr 12/05/24 18:35 12/05/24 20:00 12/05/24 21:07 Temperature 98.0 F 98.0 F Pulse Rate 102 H 105 H Respiratory Rate 22 H 24 H Blood Pressure 148/84 H 153/82 H Pulse Oximetry 91 92 Oxygen Delivery Room Air Fraction of Inspired Oxygen 12/05/24 22:11 12/06/24 00:02 12/06/24 02:08 Temperature Pulse Rate 105 H 80 100 Respiratory Rate 20 20 Blood Pressure Pulse Oximetry 92 95 94 Oxygen Delivery Room Air CPAP Room Air Fraction of Inspired Oxygen 21 21 12/06/24 06:00 12/06/24 08:00 12/06/24 12:09 Temperature 98.0 F Pulse Rate 99 102 H Respiratory Rate 22 H Blood Pressure 173/94 H 187/102 H Pulse Oximetry 90 92 90 Oxygen Delivery Room Air Fraction of Inspired Oxygen 12/06/24 12:11 12/06/24 14:00 Temperature 98.1 F Pulse Rate 102 H 82 Respiratory Rate 18 Blood Pressure 167/99 H Pulse Oximetry 93 Oxygen Delivery Fraction of Inspired Oxygen Intake/Output Intake/Output: Intake & Output 12/03/24 12/04/24 12/05/24 12/06/24 23:59 23:59 23:59 23:59 Intake Total 240 300 Balance 240 300 Meds/Results Medications: Active Medications Generic Name Dose Route Start Last Admin Trade Name Freq PRN Reason Stop Dose Admin Acetaminophen 650 mg 12/05/24 16:11 12/05/24 20:45 Acetaminophen 325 Mg Tablet PO 650 mg Q4H PRN Administration Mild Pain (1-3) or Fever Hydrocodone Bitart/Acetaminophen 1 tab 12/05/24 16:11 Hydrocodone/Acetaminophen (*Crx) 5-325 Mg Tablet PO Q4H PRN Pain Rated 4-6 Bupropion HCl 150 mg 12/06/24 09:00 12/06/24 12:10 Bupropion Hcl Xl (24 Hr) 150 Mg Tabcr PO 150 mg QAM DANA Administration Calcitriol 0.25 mcg 12/06/24 09:00 12/06/24 12:10 Calcitriol 0.25 Mcg Capsule PO 0.25 mcg DAILY DANA Administration Calcium Acetate 1,334 mg 12/06/24 08:00 12/06/24 12:11 Calcium Acetate 667 Mg Tablet PO 1,334 mg TIDWM DANA Administration Dextrose 12.5 gm 12/05/24 18:33 12/06/24 08:14 Dextrose 50% 25 Gm/50 Ml Syringe IV PUSH 12.5 gm PRN PRN Administration Hypoglycemia Protocol Escitalopram Oxalate 20 mg 12/06/24 09:00 12/06/24 12:10 Escitalopram Oxalate 10 Mg Tablet PO 20 mg DAILY DANA Administration Glucagon 1 mg 12/05/24 18:33 Glucagon For Inj 1 Mg Vial IM PRN PRN Hypoglycemia Protocol Glucose 15 gm 12/05/24 18:33 Glucose Oral Gel 15 Gm Of Glucse In 37.5 Gm Tube PO PRN PRN Hypoglycemia Protocol Dextrose 1,000 mls @ 100 mls/hr 12/05/24 18:33 Dextrose 5% 1,000 Ml IVPB PRN PRN Hypoglycemia Protocol Dextrose/Sodium Chloride 1,000 mls @ 50 mls/hr 12/06/24 08:30 12/06/24 09:11 Dextrose 5% Sodium Chloride 0.9% IV CONT 50 mls/hr .Q20H DANA Administration Insulin Aspart 1 - 3 units 12/05/24 21:00 12/05/24 20:41 Insulin Aspart (*Bkc) 100 Units/Ml SUB-Q Not Given HS DANA Protocol Insulin Aspart 3 - 6 units 12/06/24 08:00 12/06/24 12:15 Insulin Aspart (*Bkc) 100 Units/Ml SUB-Q Not Given TIDWM DANA Protocol Metoprolol Succinate 100 mg 12/06/24 09:00 12/06/24 12:11 Metoprolol Succinate Ext Rel 100 Mg Tabcr PO 100 mg DAILY DANA Administration Nifedipine 60 mg 12/06/24 09:00 12/06/24 12:10 Nifedipine 30 Mg Tab.Er.24 PO 60 mg DAILY DANA Administration Ondansetron HCl 4 mg 12/05/24 16:11 Ondansetron Inj 4 Mg/2 Ml Vial IV PUSH Q4H PRN Nausea Polyethylene Glycol 17 gm 12/05/24 18:48 Polyethylene Glycol 3350 17 Gm Powd.Pack PO BID PRN constipation Radiology Results: ITS Impressions Chest X-Ray 12/05/24 11:40 IMPRESSION: Right basilar atelectasis versus pneumonia seen laterally. Labs Labs: Laboratory Results - last 24 hr 12/05/24 12/05/24 12/05/24 17:59 19:54 20:41 WBC RBC Hgb Hct MCV MCH MCHC RDW Plt Count MPV Immature Gran % (Auto) Neut % (Auto) Lymph % (Auto) [place] % (Auto) Eos % (Auto) Baso % (Auto) Lymph # (Auto) [place] # (Auto) Eos # (Auto) Baso # (Auto) Abs Immat Gran (auto) Absolute Neuts (auto) Absolute Nucleated RBC Band Neutrophils % Nucleated RBC % Platelet Estimate Ovalocytes Schistocytes Sodium Potassium Chloride Carbon Dioxide Anion Gap BUN Creatinine Estim Creat Clear Calc Estimated GFR Glucose POC Capillary Glucose 94 Calcium Total Bilirubin AST ALT Alkaline Phosphatase Total Protein Albumin Triglycerides 183 H Nasal MRSA (PCR) Not detected Blood Type Antibody Screen 12/06/24 12/06/24 12/06/24 05:00 08:05 08:33 WBC 10.9 H RBC 2.85 L Hgb 7.6 L Hct 26.3 L MCV 92.3 MCH 26.7 MCHC 28.9 L RDW 18.2 H Plt Count 261 MPV 8.3 Immature Gran % (Auto) 0.8 H Neut % (Auto) 82.6 H Lymph % (Auto) 7.7 L [place] % (Auto) 7.0 Eos % (Auto) 1.5 Baso % (Auto) 0.4 Lymph # (Auto) 0.84 L [place] # (Auto) 0.8 H Eos # (Auto) 0.2 Baso # (Auto) 0.0 Abs Immat Gran (auto) 0.09 H Absolute Neuts (auto) 9.0 H Absolute Nucleated RBC 0.000 Band Neutrophils % 0 Nucleated RBC % 0.0 Platelet Estimate Adequate Ovalocytes 1+ Schistocytes None seen Sodium 137 Potassium 5.0 Chloride 99 Carbon Dioxide 17 L Anion Gap 21 H BUN 68 H Creatinine 9.37 H Estim Creat Clear Calc 9 Estimated GFR 6 L Glucose 76 POC Capillary Glucose 67 104 Calcium 9.3 Total Bilirubin 0.4 AST 26 ALT 19 Alkaline Phosphatase 91 Total Protein 9.0 H Albumin 3.9 Triglycerides Nasal MRSA (PCR) Blood Type A Positive Antibody Screen Negative 12/06/24 12:01 WBC RBC Hgb Hct MCV MCH MCHC RDW Plt Count MPV Immature Gran % (Auto) Neut % (Auto) Lymph % (Auto) [place] % (Auto) Eos % (Auto) Baso % (Auto) Lymph # (Auto) [place] # (Auto) Eos # (Auto) Baso # (Auto) Abs Immat Gran (auto) Absolute Neuts (auto) Absolute Nucleated RBC Band Neutrophils % Nucleated RBC % Platelet Estimate Ovalocytes Schistocytes Sodium Potassium Chloride Carbon Dioxide Anion Gap BUN Creatinine Estim Creat Clear Calc Estimated GFR Glucose POC Capillary Glucose 79 Calcium Total Bilirubin AST ALT Alkaline Phosphatase Total Protein Albumin Triglycerides Nasal MRSA (PCR) Blood Type Antibody Screen
[2024-12-06 16:49] LABS: Glucose Point of Care 100 mg/dl (65-105)
[2024-12-06] MEDS: LORATADINE 10 MG TABLET PO (16:59)
[2024-12-06] MEDS: FLUTICASONE PROPIONATE 0.05% NA SPR 16 GM BTL (*BKC) 1 SPRAY NASAL (17:00)
[2024-12-06] MEDS: guaiFENesin/DEXTROMETHORPHAN 10 ML UDC PO ×2 (17:00→23:34)
[2024-12-06 20:20] LABS: Glucose Point of Care 158 mg/dl (65-105)
[2024-12-07] VITALS (35 sets, daily range): BP systolic 130–174; BP diastolic 76–103; PULSE 61–96; RESP 16–33; TEMP 7.4–37; O2SAT 90–98
[2024-12-07 05:24] LABS: Hematocrit 28.4 % (42.0-52.0); Hemoglobin 8.4 g/dL (14.0-18.0); Mean Corpuscular HGB Conc 29.6 g/dl (32-36); Mean Corpuscular Hemoglobin 26.8 pg (26-34); Mean Corpuscular Volume 90.7 fl (80-100); Mean Platelet Volume 8.3 fl (7.4-10.4); Platelet Count Result 329 k/mm3 (150-375); Red Blood Count 3.13 M/mm3 (4.6-6.20); Red Cell Distribution Width 18.2 % (11.5-14.5); White Blood Count 13.8 K/mm3 (4.5-10.0)
[2024-12-07 05:38] LABS: Anion Gap 24 mmol/L (4-12); Blood Urea Nitrogen 76 mg/dL (9-20); Calcium 9.6 mg/dL (8.4-10.2); Carbon Dioxide 14 mmol/L (22-30); Chloride 99 mmol/L (98-107); Estimated CRCL calculation 8 ml/min; Estimated Glomerular Filt Rate 5; Glucose 83 mg/dL (65-110); Potassium 5.1 mmol/L (3.4-5.0); Sodium 137 mmol/L (137-145)
[2024-12-07 06:04] LABS: Glucose Point of Care 74 mg/dl (65-105)
[2024-12-07 06:50] LABS: Hepatitis B Surface Antigen Negative (Negative)
[2024-12-07 07:12] LABS: Hepatitis B Surface Anti Res Positive
[2024-12-07] MEDS: METOPROLOL SUCCINATE EXT REL 100 MG TABCR PO (07:20)
[2024-12-07] MEDS: NIFEdipine 30 MG TAB.ER.24 60 MG PO (07:22)
[2024-12-07 07:56] LABS: Glucose Point of Care 85 mg/dl (65-105)
--- NOTE | 2024-12-07 08:43 | WPDANESEPPF ---
Anes - Initial Pre Proc Eval Procedure: Operation Date: 12/07/24 09:30 Proposed Procedures p Removal Hemodialysis Catheter, Insertion Tunneled Hemodialysis Catheter, Possible Removal Peritoneal Dialysis Catheter - Aneudy Keenan MD Date/Time: 12/07/24 08:43 Surgeon: Harjinder Menendez MD Pre Op Diagnosis: dialysis catheter issue Patient Data Age: 44 Gender: M Height: 1.75 m Weight: 89.1 kg Last Vital Signs Temp 36.8 C 12/07/24 04:42 Pulse 86 12/07/24 07:20 Resp 18 12/07/24 04:42 BP 174/101 H 12/07/24 06:08 Pulse Ox 92 12/07/24 04:42 O2 Del Method CPAP 12/07/24 03:29 FiO2 21 12/06/24 02:08 Allergies Allergy/AdvReac Type Severity Reaction Status Date / Time No Known Allergies Allergy Verified 12/05/24 17:46 Home Medications ?Medication ?Instructions ?Recorded ?Confirmed ?Type calcitriol 0.25 mcg capsule 0.25 mcg PO DAILY 07/21/22 12/05/24 History metoprolol succinate 50 mg PO DAILY 07/22/22 12/05/24 History bupropion HCl 150 mg 24 hr tablet, 150 mg PO QAM #90 tabs 08/07/24 12/05/24 Rx extended release (Wellbutrin XL) calcium acetate(phosphat bind) 667 1,334 mg (2 x 667 mg) PO TIDWM 10/19/24 12/05/24 Rx mg tablet #240 tabs gentamicin 0.1 % topical ointment 1 applic topical DAILY #30 grams 10/19/24 12/05/24 Rx lactulose 10 gram/15 mL oral 20 g (30 mL) PO QAM #1,000 mL 10/19/24 12/05/24 Rx solution escitalopram oxalate 20 mg tablet 20 mg PO DAILY #90 tabs 11/13/24 12/05/24 Rx (Lexapro) metoprolol succinate 100 mg 100 mg PO DAILY 12/05/24 12/05/24 History tablet,extended release 24 hr nifedipine 60 mg tablet,extended 60 mg PO DAILY 12/05/24 12/05/24 History release polyethylene glycol 3350 17 gram 17 g PO BID PRN constipation 04/29/25 04/29/25 History oral powder packet (Miralax) Laboratory Tests 12/06/24 12/06/24 12/06/24 08:33 12:01 16:45 WBC RBC Hgb Hct MCV MCH MCHC RDW Plt Count MPV Sodium Potassium Chloride Carbon Dioxide Anion Gap BUN Creatinine Estim Creat Clear Calc Estimated GFR Glucose POC Capillary Glucose 104 mg/dl 79 mg/dl 100 mg/dl (65-105) (65-105) (65-105) Calcium Hep Bs Antigen Hep Bs Antibody 12/06/24 12/07/24 12/07/24 19:31 04:49 06:01 WBC 13.8 H K/mm3 (4.5-10.0) RBC 3.13 L M/mm3 (4.6-6.20) Hgb 8.4 L g/dL (14.0-18.0) Hct 28.4 L % (42.0-52.0) MCV 90.7 fl (80-100) MCH 26.8 pg (26-34) MCHC 29.6 L g/dl (32-36) RDW 18.2 H % (11.5-14.5) Plt Count 329 k/mm3 (150-375) MPV 8.3 fl (7.4-10.4) Sodium 137 mmol/L (137-145) Potassium 5.1 H mmol/L (3.4-5.0) Chloride 99 mmol/L (98-107) Carbon Dioxide 14 L mmol/L (22-30) Anion Gap 24 H mmol/L (4-12) BUN 76 H mg/dL (9-20) Creatinine 10.50 H mg/dL (0.7-1.3) Estim Creat Clear Calc 8 ml/min Estimated GFR 5 L (59 - ) Glucose 83 mg/dL (65-110) POC Capillary Glucose 158 H mg/dl 74 mg/dl (65-105) (65-105) Calcium 9.6 mg/dL (8.4-10.2) Hep Bs Antigen Negative (Negative) Hep Bs Antibody Positive 12/07/24 07:53 WBC RBC Hgb Hct MCV MCH MCHC RDW Plt Count MPV Sodium Potassium Chloride Carbon Dioxide Anion Gap BUN Creatinine Estim Creat Clear Calc Estimated GFR Glucose POC Capillary Glucose 85 mg/dl (65-105) Calcium Hep Bs Antigen Hep Bs Antibody Patient hx anesthesia problems: none Family hx anesthesia problems: none Results Review: All pre-operative results and documents have been reviewed as part of the pre-operative evaluation. [facility] Past Medical History Medical History Hyperphosphatemia associated with renal failure Non-compliance Renal failure Diabetes Hypertension Surgical History Surgical History No pertinent past surgical history Family History Family History Mother Diabetes mellitus Hypertension Grandparent Diabetes mellitus Hypertension Social History Social History Smoking status: Never smoker Second hand tobacco smoke exposure: No Alcohol intake: never Substance use: current Substance use type: marijuana Last use: 12/04/2024 Do You Feel Safe in your Home?: Yes Lack of Transportation: No Lack of Food: Never True Current Housing: I Have Housing Concerned About Future Housing: No Difficulty Paying Gas/Electric Bills: No Difficulty Paying for Meds: No Currently Unemployed: No Education: High School Diploma/GED Difficulty w/ Childcare or Family Care: No Spiritual care concerns: No Anes - Eval Final PreProcedure Day of Procedure 12/07/24 08:43 Patient weight: overweight Heart: regular rate and rhythm Lungs: decreased breath sounds Airway: Mallampati scale class II Neurological: alert and oriented Last oral intake: >/= 8 hours ASA classification: IV Emergent: no Anesthetic plan: proceed Anesthesia type and monitoring: general GIVS and standard monitoring Results Review: All pre-operative results and documents have been reviewed as part of the pre-operative evaluation. Informed Consent: The patient's anesthetic plan and its attendant risks and benefits were discussed with the patient/family/POA. Questions were solicited and answers provided to the satisfaction of the patient/family/POA.
--- NOTE | 2024-12-07 09:01 | WPDHPUPDATE1 ---
History and Physical Update Update Date/Time: 12/07/24 09:01 History and Physical has been reviewed, including an updated exam of the patient. There are NO changes in the patient's condition. Risks, benefits, and alternatives have been discussed and questions answered. Patient agrees to proceed with procedure.
[2024-12-07] MEDS: VANCOMYCIN 500 MG/NS 100 ML 500 MG/100 ML BAG 100 MG IVPB (09:24)
[2024-12-07] MEDS: LIDO 1%/EPINEPHRINE 1:100,000 50 ML VIAL 30 ML INFILTRATE (09:55)
[2024-12-07] MEDS: BUPivacaine HCL 0.5% PF 30 ML VIAL INFILTRATE (09:55)
[2024-12-07] MEDS: HEPARIN SODIUM 1,000 UNITS/ML VIAL 1000 UNITS IV PUSH (09:56)
[2024-12-07] MEDS: HEPARIN SODIUM 5,000 UNITS/ML VIAL 5000 UNITS SUB-Q (09:58)
--- NOTE | 2024-12-07 10:52 | P.PNIM_ITS ---
Progress Note: A&P Assessment and Plan (1) Malfunction of peripheral inserted central catheter: Code(s): T82.598A - Other mechanical complication of other cardiac and vascular devices and implants, initial encounter Status: Acute Assessment and Plan: Patient presented with non working HD catheter, he was sent by Dr. Aquino for catheter exchange * Chest x-ray was essentially negative * General surgery took patient to OR and exchanged HD catheter (2) End stage renal disease: Code(s): N18.6 - End stage renal disease Status: Chronic Assessment and Plan: Patient was initially on CCPD up until October of this year when he had a spontaneous bacterial peritonitis and a temporary HD catheter was placed on 10/13/2024. He now returns with dysfunction the HD catheter with need for exchange. * Currently on Wednesday dialysis--follows with Dr. Aquino * Potassium 5.1, BUN 76, creatinine 10.50 * Missed dialysis Wednesday due to nonfunctioning HD catheter * Nephrology consulted * Plan for dialysis today (3) Hypertension: Code(s): I10 - Essential (primary) hypertension Status: Acute Assessment and Plan: * Blood pressure ranging 123/70 to 169/90 * Continue nifedipine and metoprolol (4) Hypertriglyceridemia: Code(s): E78.1 - Pure hyperglyceridemia Status: Acute Assessment and Plan: * Triglycerides 183 (5) Diabetes: Code(s): E11.9 - Type 2 diabetes mellitus without complications Status: Acute Assessment and Plan: * Blood sugar 76 * Hgb A1C 6.1 * Accu checks AC/HS * Moderate dose SSI ordered * hypoglycemic protocol in place * Renal dialysis diet ordered Time Spent With Patient Time with patient: 15 - 25 minutes Subjective Date/time seen: 12/07/24 10:52 Interval history: Interval history: This is a 44-year-old male with a significant past medical history of hypertension, diabetes, end-stage renal failure on dialysis since October this year, marijuana abuse who presented to the hospital with hemodialysis catheter dysfunction. Patient states has last dialysis was on Wednesday which he completed without any issues. Today when he went for his dialysis they were unable to flush dialysis port. He was sent here for further evaluation and likely an exchange of his dialysis catheter Workup in the hospital included a chest x-ray which shown right basilar atelectasis. Initial labs showed a white blood cell count of 12.8, hemoglobin 7.4, INR 1.0, anion gap 19, BUN 62, creatinine 8.45, potassium 4.6. General surgery was consulted for HD catheter exchange. Nephrology also consulted. Subjective: Patient denies any new complaints today. Labs reviewed. Review of Systems Review of Systems: All systems reviewed & are unremarkable except as noted in HPI and below Exam Narrative: General: In no acute distress, well nourished Cardiac: Normal S1 and S2. No murmur, gallops or friction rubs, peripheral pulses intact. Left chest tunneled dialysis catheter in place with dressing Respiratory: Lungs clear to auscultation, no adventitious lung sounds currently on room air Gastrointestinal: soft, non-distended, non-tender, normoactive bowel sounds. Left lower quadrant peritoneal dialysis catheter in place : voiding without difficulty. Neuro: Alert and oriented x4 Objective Data Vital Signs Vital Signs: Vital Signs - 24 hr 12/06/24 12:09 12/06/24 12:11 12/06/24 14:00 Temperature 98.1 F Pulse Rate 102 H 102 H 82 Respiratory Rate 18 Blood Pressure 187/102 H 167/99 H Pulse Oximetry 90 93 Oxygen Delivery 12/06/24 19:33 12/06/24 22:00 12/07/24 03:29 Temperature 98.3 F Pulse Rate 87 Respiratory Rate 17 Blood Pressure 150/84 H Pulse Oximetry 90 Oxygen Delivery CPAP CPAP 12/07/24 04:42 12/07/24 06:08 12/07/24 07:20 Temperature 98.3 F Pulse Rate 84 86 Respiratory Rate 18 Blood Pressure 161/99 H 174/101 H Pulse Oximetry 92 Oxygen Delivery Intake/Output Intake/Output: Intake & Output 12/04/24 12/05/24 12/06/24 12/07/24 23:59 23:59 23:59 23:59 Intake Total 240 990 100 Balance 240 990 100 Meds/Results Medications: Active Medications Generic Name Dose Route Start Last Admin Trade Name Freq PRN Reason Stop Dose Admin Acetaminophen 650 mg 12/05/24 16:11 12/05/24 20:45 Acetaminophen 325 Mg Tablet PO 650 mg Q4H PRN Administration Mild Pain (1-3) or Fever Hydrocodone Bitart/Acetaminophen 1 tab 12/05/24 16:11 Hydrocodone/Acetaminophen (*Crx) 5-325 Mg Tablet PO Q4H PRN Pain Rated 4-6 Bupropion HCl 150 mg 12/06/24 09:00 12/07/24 10:13 Bupropion Hcl Xl (24 Hr) 150 Mg Tabcr PO Not Given QAM DANA Calcitriol 0.25 mcg 12/06/24 09:00 12/07/24 10:13 Calcitriol 0.25 Mcg Capsule PO Not Given DAILY DANA Calcium Acetate 1,334 mg 12/06/24 08:00 12/07/24 10:13 Calcium Acetate 667 Mg Tablet PO Not Given TIDWM DANA Dextrose 12.5 gm 12/05/24 18:33 12/06/24 08:14 Dextrose 50% 25 Gm/50 Ml Syringe IV PUSH 12.5 gm PRN PRN Administration Hypoglycemia Protocol Epoetin [place]-epbx 10,000 units 12/07/24 18:21 Epoetin [place]-Epbx 10,000 Units/Ml Vial IV PUSH 12/07/24 18:22 ONCE ONE Escitalopram Oxalate 20 mg 12/06/24 09:00 12/07/24 10:13 Escitalopram Oxalate 10 Mg Tablet PO Not Given DAILY [facility] Fluticasone Propionate 1 spray 12/06/24 16:50 12/07/24 10:13 Fluticasone Propionate 0.05% Na Spr 16 Gm Btl (*Bkc) NASAL Not Given Q12HR DANA Glucagon 1 mg 12/05/24 18:33 Glucagon For Inj 1 Mg Vial IM PRN PRN Hypoglycemia Protocol Glucose 15 gm 12/05/24 18:33 Glucose Oral Gel 15 Gm Of Glucse In 37.5 Gm Tube PO PRN PRN Hypoglycemia Protocol Guaifenesin/Dextromethorphan 10 ml 12/06/24 16:48 12/06/24 23:34 Guaifenesin/Dextromethorphan 10 Ml Udc PO 10 ml Q4H PRN Administration Cough Dextrose 1,000 mls @ 100 mls/hr 12/05/24 18:33 Dextrose 5% 1,000 Ml IVPB PRN PRN Hypoglycemia Protocol Dextrose/Sodium Chloride 1,000 mls @ 50 mls/hr 12/06/24 08:30 12/06/24 09:11 Dextrose 5% Sodium Chloride 0.9% IV CONT 50 mls/hr .Q20H DANA Administration Albumin Human 50 mls @ 999 mls/hr 12/07/24 06:20 Albutein IVPB 12/08/24 06:19 Q10M PRN HYPOTENSION Insulin Aspart 1 - 3 units 12/05/24 21:00 12/06/24 20:43 Insulin Aspart (*Bkc) 100 Units/Ml SUB-Q Not Given HS [facility] Protocol Insulin Aspart 3 - 6 units 12/06/24 08:00 12/07/24 08:00 Insulin Aspart (*Bkc) 100 Units/Ml SUB-Q Not Given TIDWM [facility] Protocol Loratadine 10 mg 12/06/24 16:50 12/07/24 10:13 Loratadine 10 Mg Tablet PO Not Given QAM DANA Metoprolol Succinate 100 mg 12/06/24 09:00 12/07/24 07:20 Metoprolol Succinate Ext Rel 100 Mg Tabcr PO 100 mg DAILY DANA Administration Nifedipine 60 mg 12/06/24 09:00 12/07/24 07:22 Nifedipine 30 Mg Tab.Er.24 PO 60 mg DAILY DANA Administration Ondansetron HCl 4 mg 12/05/24 16:11 Ondansetron Inj 4 Mg/2 Ml Vial IV PUSH Q4H PRN Nausea Polyethylene Glycol 17 gm 12/05/24 18:48 Polyethylene Glycol 3350 17 Gm Powd.Pack PO BID PRN constipation Radiology Results: ITS Impressions Chest X-Ray 12/05/24 11:40 IMPRESSION: Right basilar atelectasis versus pneumonia seen laterally. Labs Labs: Laboratory Results - last 24 hr 12/06/24 12/06/24 12/06/24 08:33 12:01 16:45 WBC RBC Hgb Hct MCV MCH MCHC RDW Plt Count MPV Sodium Potassium Chloride Carbon Dioxide Anion Gap BUN Creatinine Estim Creat Clear Calc Estimated GFR Glucose POC Capillary Glucose 104 79 100 Calcium Hep Bs Antigen Hep Bs Antibody 12/06/24 12/07/24 12/07/24 19:31 04:49 06:01 WBC 13.8 H RBC 3.13 L Hgb 8.4 L Hct 28.4 L MCV 90.7 MCH 26.8 MCHC 29.6 L RDW 18.2 H Plt Count 329 MPV 8.3 Sodium 137 Potassium 5.1 H Chloride 99 Carbon Dioxide 14 L Anion Gap 24 H BUN 76 H Creatinine 10.50 H Estim Creat Clear Calc 8 Estimated GFR 5 L Glucose 83 POC Capillary Glucose 158 H 74 Calcium 9.6 Hep Bs Antigen Negative Hep Bs Antibody Positive 12/07/24 07:53 WBC RBC Hgb Hct MCV MCH MCHC RDW Plt Count MPV Sodium Potassium Chloride Carbon Dioxide Anion Gap BUN Creatinine Estim Creat Clear Calc Estimated GFR Glucose POC Capillary Glucose 85 Calcium Hep Bs Antigen Hep Bs Antibody Quality VTE Prophylaxis VTE prophylaxis: mechanical ordered
--- NOTE | 2024-12-07 11:49 | P.OP_ITS ---
Procedure Note - Detailed Date of Procedure 12/07/24 Pre-op Diagnosis End-stage renal disease requiring hemodialysis Malfunctioning left internal jugular vein tunneled hemodialysis catheter Nonfunctioning peritoneal dialysis catheter Post-op Diagnosis Same Procedure Performed Placement of tunneled right internal jugular vein hemodialysis catheter with intraoperative fluoroscopy Removal of malfunctioning left internal jugular vein tunneled hemodialysis catheter Removal of peritoneal dialysis catheter Surgeon Aneudy Keenan MD Travel Registered Nurse Icu SALLY Spivey Anesthesia General Indications Patient is a 44-year-old gentleman who has end-stage renal disease and is on chronic hemodialysis 3 times a week. He was previously on peritoneal dialysis but developed spontaneous bacterial peritonitis and he was converted to hemodialysis. About 2 months ago he had placement of a tunneled hemodialysis catheter into the left internal jugular vein but that catheter is now occluded and nonfunctioning and so he needs another hemodialysis access and needs to have the left internal jugular vein tunneled catheter removed and the peritoneal dialysis catheter removed. Findings None significant Description of Procedure After informed consent was obtained patient brought to the operating room was placed supine position and then general LMA anesthesia was administered. The abdomen and the bilateral upper anterior neck and chest was then prepped and draped usual sterile fashion. The exposed portions of the catheters and the abdomen and left upper anterior chest region were prepped into the field as well. A time-out was then performed correctly identifying the patient as well as procedure to be performed. He was given 500mg of vancomycin x1. I then proceeded to remove the left internal jugular vein tunneled hemodialysis catheter. I cut the securing sutures at the skin to the catheter and then proceeded to identify the cuff in the subcutaneous tunnel to the catheter. 1% lidocaine mixed with 0.5% Marcaine was then injected the skin overlying the cuff. A small transverse incision was then made over the cuff utilizing a scalpel and then dissection was carried down to the cuff utilized electrocautery. The subcutaneous tissues around the cuff for then dissected off of the cuff freeing up the distal portion of the catheter. Then with gentle traction on the catheter distal to the cuff the catheter was removed from the left internal jugular vein. Pressure was then held in a left internal vein to achieve hemostasis. The catheter was then removed and discarded. After hemos tasis was achieved I then proceeded to irrigate out the small incision in the left upper anterior chest region. This was then closed utilizing interrupted 3- 0 Vicryl sutures in the subcutaneous tissues and then the skin edges were approximated utilizing a running subcuticular 4-0 Monocryl suture. I then turned my attention toward placing a new right internal jugular vein tunneled hemodialysis catheter. With the patient now placed in the head-down Trendelenburg position I injected 1% lidocaine mixed with 0.5% Marcaine between the 2 heads of the right sternocleidomastoid muscle. A long 18gauge spinal needle was then used to cannulate the right internal jugular vein on the 1st pass. There was prompt return of dark venous appearing blood. A guidewire was advanced through the needle into the right internal jugular vein and subsequently down into the right atrium of the heart. Intraoperative fluoroscopy was used to confirm the tip of the guidewire was in the right ventricle. The patient had a small amount of ectopy which confirmed that the tip of the guidewire was in the proper position and the guidewire was pulled back into there is no longer any ectopy. I then proceeded to tunnel the dura flow hemodialysis catheter up to the right anterior lateral neck region. More local anesthetic mixture was then used to inject around the insertion site of the skin on the right anterior chest region for the catheter and the subcutaneous tunnel. A scalpel was then used to make a small stab incision the right upper anterior chest region and then I enlarged the insertion site of the guidewire with the scalp with the skin. The dura flow hemodialysis catheter was then tunneled between the chest incision and the neck incision. The cuff was then situated in the subcutaneous tunnel just below the midportion of the right clavicle. I then advanced the dilators to enlarge the venotomy over the guidewire. Lastly a very large dilator and breakaway sheath was advanced over the guidewire. The dilator and guidewire were removed leaving the sheath in place. The catheter was then advanced through the sheath into the right internal jugular vein and down into the distal superior vena cava. There was difficulty in trying to get the tip of the catheter to go into the sheath and there was some substantial blood loss relation to how much she is using lost during this type of procedure. I would estimate that approximately 100 to 125 cc of blood was lost during this part of the procedure alone. Eventually the sheath was torn away from the catheter leaving the catheter in place. I then aspirated both ports of the catheter and aspirated easily and then we flushed with heparinized saline solution they flushed well with good high flows. I then secured the tunneled hemodialysis catheter in the right upper anterior chest with 3-0 nylon sutures. I then flushed both ports of the catheter with 2500units of IV heparin into each port. The small neck incision was then irrigated sterile saline solution and then closed with a single 4-0 Monocryl suture. Lastly I then turned my attention to removing the peritoneal dialysis catheter. Same local anesthetic mixture was then injected in the subcutaneous tissues around where I expected the securing ports to be in place. Small transverse incisions were then made over these areas of the scalp and then dissection was carried down through the subcutaneous tissues to the cuffs. The the cuts were then dissected out from the surrounding subcutaneous tissues freeing up the catheter. I then cut the distal part of the catheter off and then made an incision the old scar where the catheter goes through the fascia to the peritoneum and abdomen. In this incision I dissected down through the subcu tissue electrocautery to the catheter at the fascial level and then with traction on the catheter I was able to identify the cuff and then dissect the anterior rectus fascia away from the cuff to free up the catheter completely. With gentle traction on the catheter I then removed the peritoneal dialysis catheter from the abdomen. The tip seemed to be intact. The catheter was then discarded. I then irrigated out the incision sterile saline solution. The small defect in the anterior rectus fascia was then closed utilizing 0 Vicryl suture placed in a [id number] fashion. The incision was then closed utilizing interrupted 3-0 Vicryl suture the subcutaneous tissues the skin edges were approximated utilizing a running subcuticular 4-0 Monocryl suture. In the incision to access the subcutaneous cuff I achieved hemostasis in the incision and subcutaneous tunnel with applying pressure. The subcutaneous tissues here and skin edges were approximated utilizing interrupted 3-0 nylon sutures placed in simple fashion. The exit site catheter the skin was left open. All the incisions were then covered with sterile gauze or covered with skin glue. The patient tolerated the procedure well no complications. All sponges, needles, and instrument counts were correct at the end procedure. EBL was _150__cc. The patient was awakened and taken to recovery in stable and satisfactory condition. Implants Tunneled Dura Flow 2 hemodialysis catheter placed via right internal jugular vein. Estimated Blood Loss 150 Drains No Packing No Pathology None sent Complications No immediate complications Condition Stable Disposition PACU [facility] Billing Surgery - Charge Forward: Surgery Billing
[2024-12-07] MEDS: DEXTROSE 50% 25 GM/50 ML SYRINGE IV PUSH (12:09)
[2024-12-07 12:37] LABS: Glucose Point of Care 71 mg/dl (65-105)
[2024-12-07 12:37] LABS: Glucose Point of Care 67 mg/dl (65-105)
[2024-12-07 12:37] LABS: Glucose Point of Care 84 mg/dl (65-105)
[2024-12-07 12:37] LABS: Glucose Point of Care 69 mg/dl (65-105)
[2024-12-07 14:05] LABS: Glucose Point of Care 82 mg/dl (65-105)
[2024-12-07] MEDS: SODIUM CHLORIDE 0.9% IV 1,000 ML 999 ML IV CONT (14:31)
[2024-12-07] MEDS: EPOETIN ALFA-EPBX 10,000 UNITS/ML VIAL 10000 UNITS IV PUSH (14:49)
--- NOTE | 2024-12-07 15:30 | P.CONNP_ITS ---
Assessment and Plan Assessment and plan (1) End stage renal disease: Code(s): N18.6 - End stage renal disease Status: Chronic Assessment and Plan: * currently on hemodialysis * last successful HD treatment on 12/02/24 (see #2) * s/p new RIJ tunneled HD catheter placement today * s/p removal of non-functioning LIJ tunneled HD catheter * s/p removal of peritoneal dialysis catheter * noted mildly elevated K+ along with metabolic acidosis * HD today * likely plan HD tomorrow as well * follow electrolytes, volume status, and clearance (2) Hemodialysis catheter dysfunction: Code(s): T82.41XA - Breakdown (mechanical) of vascular dialysis catheter, initial encounter Status: Acute Assessment and Plan: * as noted by outpatient history * s/p new tunneled RIJ catheter placement (on 12/07) * Surgery following (3) Metabolic acidosis: Code(s): E87.20 - Acidosis, unspecified Status: Acute Assessment and Plan: * due to ESRD and 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 * should correct with dialysis treatments * follow trend (4) Hypertension: Qualifiers: Hypertension type: primary hypertension Qualified Code(s): I10 - Essential (primary) hypertension Code(s): I10 - Essential (primary) hypertension Status: Chronic Assessment and Plan: * reasonable control at this time * continue home medications * follow trend of hemodynamics (5) Anemia: Qualifiers: Anemia type: iron deficiency Iron deficiency anemia type: unspecified iron deficiency Qualified Code(s): D50.9 - Iron deficiency anemia, unspecified Code(s): D64.9 - Anemia, unspecified Status: Chronic Assessment and Plan: * due to ESRD * Epogen with HD * follow trend of H/H (6) Diabetes: Qualifiers: Chronic kidney disease stage: stage 5, not on chronic dialysis Diabetes mellitus complication detail: with chronic kidney disease Diabetes mellitus complication status: with kidney complications Diabetes mellitus longterm insulin use: without longterm use Diabetes mellitus type: type 2 Qualified Code(s): E11.22 - Type 2 diabetes mellitus with diabetic chronic kidney disease; N18.5 - Chronic kidney disease, stage 5 Code(s): E11.9 - Type 2 diabetes mellitus without complications Status: Chronic Assessment and Plan: * follow accu-checks * glycemic control per hospitalist Assuming his catheter works well with his dialysis treatment today as well as tomorrow, I would not be opposed to discharge from the renal perspective after his dialysis treatment tomorrow (assuming he is medically stable); he can continue his outpatient dialysis treatment schedule on Wednesday. I will continue to follow the patient with you while he remains hospitalized and make further recommendations as deemed necessary. Thank you for allowing me to participate in the care of this patient. L History of Present Illness Reason for Consult Consult date: 12/07/24 Reason for consult: end stage renal disease Chief Complaint Chief complaint: dialysis catheter issue History of Present Illness Narrative: The patient is a 44-year-old male with past medical history as outlined below who presented to [facility] Emergency Room due to ongoing dysfunction of his hemodialysis catheter. The patient presented to his outpatient dialysis clinic on Wednesday for his regularly scheduled dialysis treatment. Unfortunately, despite multiple interventions by the outpatient dialysis nurses, they were unable to get his dialysis catheter to flush/work. His last dialysis treatment was on Wednesday and his dialysis catheter worked reasonably well at that time but it should be noted that over the last few weeks, his hemodialysis catheter has been having issues and problems with frequent clotting in general. He has required innumerable doses of alteplase to help improve his dialysis catheter functionality but from what I am told by the outpatient dialysis unit/staff, his dialysis catheter will work for maybe 1 or 2 treatments and then once again clots and become nonfunctional much as it did on with his attempted outpatient dialysis treatment. Unfortunately, due to the patient's lack of insurance, outpatient arrangements for a new tunneled dialysis catheter placement are unable to be done. Hence, it was recommended the patient come to the emergency room for further assessment. Workup and evaluation emergency room demonstrated the patient be hemodynamically stable in no acute distress. Routine blood test demonstrated labs consistent with his known history of end-stage renal disease without any critical electrolyte abnormalities or evidence of volume overload. General surgery was consulted for placement of a new tunneled dialysis catheter and given that his PD catheter is ongoing potential source of infection since he is not likely to return to peritoneal dialysis any time soon, surgery was also consulted for removal of his PD catheter as well. The patient went to the OR earlier this morning and had a new tunneled right internal jugular dialysis catheter placed with subsequent removal of his non- functioning left internal jugular dialysis catheter along with removal of his peritoneal dialysis catheter. He tolerated these procedures reasonably well. Formal consultation to Nephrology for the patient's end-stage renal disease was not done on admission and I was only made aware that the patient was in the hospital by the inpatient dialysis nurses yesterday afternoon. Renal consultation was requested due to his end-stage renal disease. The patient was previously on peritoneal dialysis but on his last hospitalization here at [facility] about a month ago, he developed peritonitis and his PD catheter was not functioning properly despite multiple interventions. Since his PD catheter failed to work appropriately, peritoneal dialysis was unable to be done during that hospital stay. As this was felt to be an ongoing issue until possible outpatient evaluation/intervention could be done, a tunneled hemodialysis catheter was placed for ongoing renal replacement therapy both during his hospitalization and likely to continue as an outpatient until a definitive plan with regard to his PD catheter could be worked out. Unfortunately, further outpatient effort to get his PD catheter failed and he has remained dependent on hemodialysis at this time. As already mentioned above, he has been having ongoing issues and problems with his current tunneled dialysis catheter -- patient has required numerous doses of alteplase in his dialysis catheter which resulted in his dialysis the current catheter working for maybe 1 or 2 treatments before it clots again. On his last treatment on Wednesday, once again, his dialysis catheter clotted and even alteplase was unable to be instilled within it. His last uneventful dialysis treatment was on Wednesday (12/01/24). Currently, at the time my evaluation, he appears to be in no acute distress and is tolerating his dialysis treatment at this time (seen on HD at 3:20PM). Review of Systems 2 Review of Systems: As per HPI. [facility] Past Medical History Medical History Hyperphosphatemia associated with renal failure Non-compliance Renal failure Diabetes Hypertension Surgical History Surgical History No pertinent past surgical history Family History Family History Mother Diabetes mellitus Hypertension Grandparent Diabetes mellitus Hypertension Social History Social History Smoking status: Never smoker Second hand tobacco smoke exposure: No Alcohol intake: never Substance use: current Substance use type: marijuana Last use: 12/04/2024 Do You Feel Safe in your Home?: Yes Lack of Transportation: No Lack of Food: Never True Current Housing: I Have Housing Concerned About Future Housing: No Difficulty Paying Gas/Electric Bills: No Difficulty Paying for Meds: No Currently Unemployed: No Education: High School Diploma/GED Difficulty w/ Childcare or Family Care: No Spiritual care concerns: No Meds Home Medications and Allergies Home Medications ?Medication ?Instructions ?Recorded ?Confirmed ?Type calcitriol 0.25 mcg capsule 0.25 mcg PO DAILY 07/21/22 12/05/24 History metoprolol succinate 50 mg PO DAILY 07/22/22 12/05/24 History bupropion HCl 150 mg 24 hr tablet, 150 mg PO QAM #90 tabs 08/07/24 12/05/24 Rx extended release (Wellbutrin XL) calcium acetate(phosphat bind) 667 1,334 mg (2 x 667 mg) PO TIDWM 10/19/24 12/05/24 Rx mg tablet #240 tabs gentamicin 0.1 % topical ointment 1 applic topical DAILY #30 grams 10/19/24 12/05/24 Rx lactulose 10 gram/15 mL oral 20 g (30 mL) PO QAM #1,000 mL 10/19/24 12/05/24 Rx solution escitalopram oxalate 20 mg tablet 20 mg PO DAILY #90 tabs 11/13/24 12/05/24 Rx (Lexapro) metoprolol succinate 100 mg 100 mg PO DAILY 12/05/24 12/05/24 History tablet,extended release 24 hr nifedipine 60 mg tablet,extended 60 mg PO DAILY 12/05/24 12/05/24 History release polyethylene glycol 3350 17 gram 17 g PO BID PRN constipation 12/05/24 12/05/24 History oral powder packet (Miralax) Allergies Allergy/AdvReac Type Severity Reaction Status Date / Time No Known Allergies Allergy Verified 12/07/24 09:36 Vital Signs Vital Signs Temp Pulse Resp BP Pulse Ox O2 Del Method O2 Flow Rate 12/07/24 13:58 97.1 F L 91 16 136/78 93 12/07/24 13:57 97.4 F L 68 16 137/81 93 12/07/24 13:11 73 22 H 153/92 H 97 Nasal Cannula 2 12/07/24 13:00 74 27 H 154/93 H 98 Nasal Cannula 2 12/07/24 12:45 74 30 H 155/93 H 95 Nasal Cannula 2 12/07/24 12:30 74 30 H 159/100 H 96 Nasal Cannula 2 12/07/24 12:15 75 30 H 157/102 H 95 Simple Face Mask 8 12/07/24 12:00 73 33 H 155/96 H 94 Simple Face Mask 8 12/07/24 11:45 72 33 H 132/83 95 Simple Face Mask 8 12/07/24 11:33 97.2 F L 96 20 135/85 96 Simple Face Mask 8 12/07/24 08:25 97.5 F L 82 16 174/103 H 90 Nasal Cannula 2 12/07/24 07:20 86 12/07/24 06:08 174/101 H 12/07/24 04:42 98.3 F 84 18 161/99 H 92 12/07/24 03:29 CPAP 12/06/24 22:00 CPAP 12/06/24 19:33 98.3 F 87 17 150/84 H 90 Exam 2 Narrative: GENERAL APPEARANCE: well developed well nourished male in no acute distress HEENT: normocephalic, atraumatic, normal conjunctiva and sclera, nares patient NECK: no lymphadenopathy, thyromegaly, or JVD MOUTH: normal lips, teeth, and gums CARDIOVASCULAR: RRR, normal S1 and S2, no rub RESPIRATORY: clear to auscultation bilaterally ABDOMEN: soft, nontender, nondistended, positive bowel sounds present EXTREMITIES: no evidence of cyanosis, clubbing, or edema NEUROLOGICAL: alert and oriented x 3; CN II - XII intact bilaterally; no focal deficits noted Results Lab Results 12/07/24 04:49 12/07/24 04:49 Lab results: Most recent lab results Calcium 9.3 mg/dL (8.4-10.2) 12/06/24 05:00
[2024-12-07 18:33] LABS: Glucose Point of Care 91 mg/dl (65-105)
[2024-12-07] MEDS: CALCIUM ACETATE 667 MG TABLET 1334 MG PO (18:36)
[2024-12-07] MEDS: HYDROcodone/acetaminophen (*CRX) 5-325 MG TABLET 1 TAB PO (20:08)
[2024-12-07 20:44] LABS: Glucose Point of Care 95 mg/dl (65-105)
[2024-12-08] VITALS (16 sets, daily range): BP systolic 141–165; BP diastolic 76–94; PULSE 62–88; RESP 16–18; TEMP 36.5–37; O2SAT 93
[2024-12-08] MEDS: HYDROcodone/acetaminophen (*CRX) 5-325 MG TABLET 1 TAB PO ×3 (01:42→12:22)
[2024-12-08 06:24] LABS: Hematocrit 26.1 % (42.0-52.0); Hemoglobin 7.7 g/dL (14.0-18.0); Mean Corpuscular HGB Conc 29.5 g/dl (32-36); Mean Corpuscular Hemoglobin 26.9 pg (26-34); Mean Corpuscular Volume 91.3 fl (80-100); Mean Platelet Volume 8.1 fl (7.4-10.4); Platelet Count Result 267 k/mm3 (150-375); Red Blood Count 2.86 M/mm3 (4.6-6.20); Red Cell Distribution Width 17.9 % (11.5-14.5); White Blood Count 10.3 K/mm3 (4.5-10.0)
[2024-12-08 06:35] LABS: Albumin Level 3.7 g/dL (3.5-5.1); Anion Gap 17 mmol/L (4-12); Blood Urea Nitrogen 41 mg/dL (9-20); Calcium 9.1 mg/dL (8.4-10.2); Carbon Dioxide 21 mmol/L (22-30); Chloride 100 mmol/L (98-107); Estimated CRCL calculation 14 ml/min; Estimated Glomerular Filt Rate 10; Glucose 81 mg/dL (65-110); Potassium 4.5 mmol/L (3.4-5.0); Sodium 138 mmol/L (137-145)
[2024-12-08 07:36] LABS: Glucose Point of Care 87 mg/dl (65-105)
--- NOTE | 2024-12-08 09:15 | PM.PNNEP ---
Progress Note: A&P Assessment and Plan (1) End stage renal disease: Code(s): N18.6 - End stage renal disease Status: Chronic Assessment and Plan: currently on hemodialysis (transitioned from peritoneal dialysis) last successful HD treatment on 12/02/24 (see #2) PRIOR to admission s/p new RIJ tunneled HD catheter placement (on 12/07/24) s/p removal of non-functioning LIJ tunneled HD catheter s/p removal of peritoneal dialysis catheter HD yesterday and today follow electrolytes, volume status, and clearance resume outpatient schedule of //Wednesday (2) Hemodialysis catheter dysfunction: Code(s): T82.41XA - Breakdown (mechanical) of vascular dialysis catheter, initial encounter Status: Acute Assessment and Plan: as noted by outpatient history s/p new tunneled RIJ catheter placement (on 12/07) Surgery following (3) Metabolic acidosis: Code(s): E87.20 - Acidosis, unspecified Status: Acute Assessment and Plan: 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 to ESRD 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 with dialysis treatments follow trend (4) Hypertension: Qualifiers: Hypertension type: primary hypertension Qualified Code(s): I10 - Essential (primary) hypertension Code(s): I10 - Essential (primary) hypertension Status: Chronic Assessment and Plan: reasonable control at this time continue home medications follow trend of hemodynamics (5) Anemia: Qualifiers: Anemia type: iron deficiency Iron deficiency anemia type: unspecified iron deficiency Qualified Code(s): D50.9 - Iron deficiency anemia, unspecified Code(s): D64.9 - Anemia, unspecified Status: Chronic Assessment and Plan: due to ESRD (and missed doses of WILBERT) Epogen with HD follow trend of H/H (6) Diabetes: Qualifiers: Chronic kidney disease stage: stage 5, not on chronic dialysis Diabetes mellitus complication detail: with chronic kidney disease Diabetes mellitus complication status: with kidney complications 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 Aquino will continue to follow him there. Will continue to follow. Subjective Date/time seen: 12/08/24 09:15 Interval history: Follow-up for end stage renal disease on hemodialysis. Tolerated new HD catheter placement and removal of PD catheter along with dialysis yesterday; tolerating dialysis treatment at the time of my visit (seen on HD at 9:05AM); no apparent distress noted when seen; no issues/events overnight or earlier this morning; feels reasonably well. Exam Narrative: General: WD/WN male in NAD Heart: RRR, normal S1 and S2; no rub Lungs: clear to auscultation Abdomen: soft, minor discomfort with palpation; positive bowel sounds Extremities: no cyanosis or clubbing; no edema Skin: warm and dry Objective Data Vital Signs Vital Signs: Vital Signs Temp Pulse Resp BP Pulse Ox O2 Del Method O2 Flow Rate 12/08/24 09:00 86 151/85 H 12/08/24 08:45 74 142/80 H 12/08/24 08:38 98.2 F 70 18 146/76 H 12/08/24 04:06 97.7 F 62 16 144/78 H 93 12/07/24 23:40 65 93 CPAP 12/07/24 23:24 97.8 F 81 17 142/77 H 90 12/07/24 21:52 93 Room Air 12/07/24 20:00 64 18 93 Room Air 12/07/24 18:15 98.1 F 64 18 144/87 H 12/07/24 18:10 63 141/84 H 12/07/24 18:00 63 144/89 H 12/07/24 17:45 64 143/86 H 12/07/24 17:30 63 144/85 H 12/07/24 17:15 62 139/76 12/07/24 17:00 64 136/86 12/07/24 16:45 64 130/80 12/07/24 16:30 83 142/84 H 12/07/24 16:15 63 134/77 12/07/24 16:00 64 133/78 12/07/24 15:45 65 135/83 12/07/24 15:30 65 136/80 12/07/24 15:15 64 141/81 H 12/07/24 15:00 66 144/86 H 12/07/24 14:38 61 139/85 12/07/24 14:31 98.0 F 62 18 138/82 12/07/24 14:31 2 12/07/24 13:58 97.1 F L 91 16 136/78 93 12/07/24 13:57 97.4 F L 68 16 137/81 93 12/07/24 13:11 73 22 H 153/92 H 97 Nasal Cannula 2 12/07/24 13:00 74 27 H 154/93 H 98 Nasal Cannula 2 12/07/24 12:45 74 30 H 155/93 H 95 Nasal Cannula 2 12/07/24 12:30 74 30 H 159/100 H 96 Nasal Cannula 2 12/07/24 12:15 75 30 H 157/102 H 95 Simple Face Mask 8 12/07/24 12:00 73 33 H 155/96 H 94 Simple Face Mask 8 12/07/24 11:45 72 33 H 132/83 95 Simple Face Mask 8 12/07/24 11:33 97.2 F L 96 20 135/85 96 Simple Face Mask 8 Intake/Output Intake/Output: Intake & Output 12/05/24 12/06/24 12/07/24 12/08/24 23:59 23:59 23:59 23:59 Intake Total 240 990 195 150 Output Total 3000 Balance 240 990 -2805 150 Meds/Results Medications: Active Medications Generic Name Dose Route Start Last Admin Trade Name Olmanq PRN Reason Stop Dose Admin Acetaminophen 650 mg 12/05/24 16:11 12/05/24 20:45 Acetaminophen 325 Mg Tablet PO 650 mg Q4H PRN Administration Mild Pain (1-3) or Fever Hydrocodone Bitart/Acetaminophen 1 tab 12/05/24 16:11 12/08/24 06:30 Hydrocodone/Acetaminophen (*Crx) 5-325 Mg Tablet PO 1 tab Q4H PRN Administration Pain Rated 4-6 Bupropion HCl 150 mg 12/06/24 09:00 12/07/24 10:13 Bupropion Hcl Xl (24 Hr) 150 Mg Tabcr PO Not Given QAM DANA Calcitriol 0.25 mcg 12/06/24 09:00 12/07/24 10:13 Calcitriol 0.25 Mcg Capsule PO Not Given DAILY DANA Calcium Acetate 1,334 mg 12/06/24 08:00 12/07/24 18:36 Calcium Acetate 667 Mg Tablet PO 1,334 mg TIDWM DANA Administration Dextrose 12.5 gm 12/05/24 18:33 12/06/24 08:14 Dextrose 50% 25 Gm/50 Ml Syringe IV PUSH 12.5 gm PRN PRN Administration Hypoglycemia Protocol Epoetin Austin-epbx 20,000 units 12/08/24 18:08 Epoetin [place]-Epbx 10,000 Units/Ml Vial IV PUSH 12/08/24 18:09 ONCE ONE Escitalopram Oxalate 20 mg 12/06/24 09:00 12/07/24 10:13 Escitalopram Oxalate 10 Mg Tablet PO Not Given DAILY DANA Fentanyl Citrate 25 mcg 12/07/24 11:38 Fentanyl Citrate Inj (*Crx) 100 Mcg/2 Ml Vial IV PUSH Q2M PRN Pain Fluticasone Propionate 1 spray 12/06/24 16:50 12/08/24 00:11 Fluticasone Propionate 0.05% Na Spr 16 Gm Btl (*Bkc) NASAL Not Given Q12HR [facility] Glucagon 1 mg 12/05/24 18:33 Glucagon For Inj 1 Mg Vial IM PRN PRN Hypoglycemia Protocol Glucose 15 gm 12/05/24 18:33 Glucose Oral Gel 15 Gm Of Glucse In 37.5 Gm Tube PO PRN PRN Hypoglycemia Protocol Guaifenesin/Dextromethorphan 10 ml 12/06/24 16:48 12/06/24 23:34 Guaifenesin/Dextromethorphan 10 Ml Udc PO 10 ml Q4H PRN Administration Cough Dextrose 1,000 mls @ 100 mls/hr 12/05/24 18:33 Dextrose 5% 1,000 Ml IVPB PRN PRN Hypoglycemia Protocol Dextrose/Sodium Chloride 1,000 mls @ 50 mls/hr 12/06/24 08:30 12/06/24 09:11 Dextrose 5% Sodium Chloride 0.9% IV CONT 50 mls/hr .Q20H DANA Administration Lactated Ringer's 1,000 mls @ 30 mls/hr 12/07/24 11:40 Lr - Lactated Ringers Iv IV CONT .Q24H DANA Insulin Aspart 1 - 3 units 12/05/24 21:00 12/08/24 00:11 Insulin Aspart (*Bkc) 100 Units/Ml SUB-Q Not Given HS [facility] Protocol Insulin Aspart 3 - 6 units 12/06/24 08:00 12/07/24 18:36 Insulin Aspart (*Bkc) 100 Units/Ml SUB-Q Not Given TIDWM [facility] Protocol Loratadine 10 mg 12/06/24 16:50 12/07/24 10:13 Loratadine 10 Mg Tablet PO Not Given QAM [facility] Metoprolol Succinate 100 mg 12/06/24 09:00 12/07/24 07:20 Metoprolol Succinate Ext Rel 100 Mg Tabcr PO 100 mg DAILY [facility] Administration Nifedipine 60 mg 12/06/24 09:00 12/07/24 07:22 Nifedipine 30 Mg Tab.Er.24 PO 60 mg DAILY [facility] Administration Ondansetron HCl 4 mg 12/05/24 16:11 Ondansetron Inj 4 Mg/2 Ml Vial IV PUSH Q4H PRN Nausea Polyethylene Glycol 17 gm 12/05/24 18:48 Polyethylene Glycol 3350 17 Gm Powd.Pack PO BID PRN constipation Radiology Results: ITS Impressions Chest X-Ray 12/07/24 14:34 Impression: 1: Cardiomegaly with pulmonary edema. Labs Labs: Laboratory Tests 12/08/24 06:17 12/08/24 06:17 Calcium 9.1 Phosphorus 8.0 H Albumin 3.7
[2024-12-08] MEDS: EPOETIN ALFA-EPBX 10,000 UNITS/ML VIAL 20000 UNITS IV PUSH (11:43)
[2024-12-08 12:06] LABS: Glucose Point of Care 149 mg/dl (65-105)
[2024-12-08] MEDS: LORATADINE 10 MG TABLET PO (12:20)
[2024-12-08] MEDS: calcitrioL 0.25 MCG CAPSULE PO (12:21)
[2024-12-08] MEDS: CALCIUM ACETATE 667 MG TABLET 1334 MG PO (12:21)
[2024-12-08] MEDS: NIFEdipine 30 MG TAB.ER.24 60 MG PO (12:21)
[2024-12-08] MEDS: buPROPion HCL XL (24 HR) 150 MG TABCR PO (12:21)
[2024-12-08] MEDS: METOPROLOL SUCCINATE EXT REL 100 MG TABCR PO (12:22)
[2024-12-08] MEDS: ESCITALOPRAM OXALATE 10 MG TABLET 20 MG PO (12:22)
--- NOTE | 2024-12-08 12:28 | P.DS_ITS ---
DS: Admitting Diagnosis Discharge Date 12/08/24 Admitting Diagnosis Malfunction of peripheral inserted central catheter End-stage renal disease Hypertension Hypertriglyceridemia Diabetes DS: Discharge Diagnosis Discharge Diagnosis (1) Malfunction of peripheral inserted central catheter: Code(s): T82.598A - Other mechanical complication of other cardiac and vascular devices and implants, initial encounter Status: Acute (2) End stage renal disease: Code(s): N18.6 - End stage renal disease Status: Chronic (3) Hypertension: Code(s): I10 - Essential (primary) hypertension Status: Acute Assessment and Plan: * (4) Hypertriglyceridemia: Code(s): E78.1 - Pure hyperglyceridemia Status: Acute Assessment and Plan: * (5) Diabetes: Code(s): E11.9 - Type 2 diabetes mellitus without complications Status: Acute Assessment and Plan: * DS: Summary Hospital Course Reason for hospitalization: Malfunction of peripheral inserted central catheter End-stage renal disease Hypertension Hypertriglyceridemia Diabetes Hospital Course: This is a 44-year-old male with a significant past medical history of hypertension, diabetes, end-stage renal failure on dialysis since October this year, marijuana abuse who presented to the hospital with hemodialysis catheter dysfunction. Patient states has last dialysis was on Wednesday which he completed without any issues. Today when he went for his dialysis they were unable to flush dialysis port. He was sent here for further evaluation and likely an exchange of his dialysis catheter Workup in the hospital included a chest x-ray which shown right basilar atelectasis. Initial labs showed a white blood cell count of 12.8, hemoglobin 7.4, INR 1.0, anion gap 19, BUN 62, creatinine 8.45, potassium 4.6. General surgery was consulted for HD catheter exchange. Patient had catheter exchanged on 12/07/[address] Keenan as well as his PD catheter removed. He underwent dialysis yesterday and again today. Nephrology has cleared him for discharge. He will resume his regular scheduled dialysis appointments as before. He is stable for discharge. Final diagnosis: Malfunction of peripheral inserted central catheter Status at Discharge Cognitive/behavioral status at discharge: Alert oriented x4 Functional status at discharge: independent ambulation Overall status at discharge: patient is progressing back to baseline Time Spent with Patient Time attestation: Total time spent providing and/or coordinating discharge services: Time spent: Greater than 30 minutes Exam Narrative: General: In no acute distress, well nourished Cardiac: Normal S1 and S2. No murmur, gallops or friction rubs, peripheral pulses intact. Left chest tunneled dialysis catheter in place with dressing Respiratory: Lungs clear to auscultation, no adventitious lung sounds currently on room air Gastrointestinal: soft, non-distended, non-tender, normoactive bowel sounds. Left lower quadrant peritoneal dialysis catheter in place : voiding without difficulty. Neuro: Alert and oriented x4 DS: Data Data Completed and Pending Completed studies during hospitalization: Chest x-ray Pending studies at discharge: Blood cultures Labs on day of discharge: Labs from last 24 hours 12/08/24 12/08/24 12/08/24 12:04 07:18 06:17 WBC 10.3 H RBC 2.86 L Hgb 7.7 L Hct 26.1 L MCV 91.3 MCH 26.9 MCHC 29.5 L RDW 17.9 H Plt Count 267 MPV 8.1 Sodium 138 Potassium 4.5 Chloride 100 Carbon Dioxide 21 L Anion Gap 17 H BUN 41 H D Creatinine 6.28 H Estim Creat Clear Calc 14 Estimated GFR 10 L Glucose 81 POC Capillary Glucose 149 H 87 Calcium 9.1 Phosphorus 8.0 H Albumin 3.7 12/07/24 12/07/24 12/07/24 19:36 18:31 14:02 WBC RBC Hgb Hct MCV MCH MCHC RDW Plt Count MPV Sodium Potassium Chloride Carbon Dioxide Anion Gap BUN Creatinine Estim Creat Clear Calc Estimated GFR Glucose POC Capillary Glucose 95 91 82 Calcium Phosphorus Albumin 12/07/24 12/07/24 12/07/24 12:35 12:21 11:57 WBC RBC Hgb Hct MCV MCH MCHC RDW Plt Count MPV Sodium Potassium Chloride Carbon Dioxide Anion Gap BUN Creatinine Estim Creat Clear Calc Estimated GFR Glucose POC Capillary Glucose 84 71 69 Calcium Phosphorus Albumin 12/07/24 11:56 WBC RBC Hgb Hct MCV MCH MCHC RDW Plt Count MPV Sodium Potassium Chloride Carbon Dioxide Anion Gap BUN Creatinine Estim Creat Clear Calc Estimated GFR Glucose POC Capillary Glucose 67 Calcium Phosphorus Albumin Preliminary micro results at discharge 12/05/24 19:48 Blood Culture - Preliminary Blood 12/05/24 19:54 Blood Culture - Preliminary Blood Procedures/Treatments: Placement of tunneled right internal jugular vein hemodialysis catheter with intraoperative fluoroscopy Removal of malfunctioning left internal jugular vein tunneled hemodialysis catheter Removal of peritoneal dialysis catheter Discharge Plan Discharge Attending physician on discharge: Brent Flores Consulting providers: Aneudy Keenan; Anni Graham Discharging Clinician: Samira Woods Anticipated Discharge Date/Time: 12/08/24 12:25 Patient Disposition: Home Activity: as tolerated Diet: as tolerated and renal Discharge Instructions: * Continue dialysis sessions as previous * Follow up with Primary Class Teacher in 2 weeks Patient Instructions: Dialysis Nutrition Plan (DC), End Stage Kidney Disease (DC), Perma-cath Placement (DC) Patient Language: Pakistani Stand Alone Forms: General Discharge Information Follow-up/Referrals: Joel Hernandez MD [Primary Care Provider] - Keep Reg. Scheduled Appt. Anni Graham MD [Physician] - 2 Weeks Discharge Medications: New loratadine 10 mg Tablet 10 mg PO QAM Qty: 30 0RF Continued calcitriol 0.25 mcg capsule 0.25 mcg PO DAILY metoprolol succinate 50 mg PO DAILY Patient Comments: pt takes medication in morning calcium acetate(phosphat bind) 667 mg Tablet 1,334 mg PO TIDWM Qty: 240 0RF gentamicin 0.1 % Ointment 1 applic topical DAILY Qty: 30 0RF lactulose 10 gram/15 mL Solution 20 g PO QAM Qty: 1000 0RF nifedipine 60 mg tablet extended release 60 mg PO DAILY metoprolol succinate 100 mg tablet extended release 24 hr 100 mg PO DAILY polyethylene glycol 3350 [Miralax] 17 gram Powder In Packet 17 g PO BID PRN (Reason: constipation) bupropion HCl [Wellbutrin XL] 150 mg tablet extended release 24 hr 150 mg PO QAM Qty: 90 1RF escitalopram oxalate [Lexapro] 20 mg tablet 20 mg PO DAILY Qty: 90 1RF Date of admission: 12/06/24 09:24 Primary Care Provider: Joel Hernandez Admitting Provider: Harjinder Menendez Attending physician on admission: Hajrinder Menendez Condition: Improved Quality VTE Prophylaxis VTE prophylaxis: mechanical ordered
[2024-12-08] MEDS: SODIUM CHLORIDE 0.9% IV 1,000 ML 999 ML IV CONT (12:29)
== END 2024-12-08 13:35 | disposition home or self-care (01) | DRG 674 ==
LOC: ANHED 11:49 → ANH2MED 16:33
PROVIDERS: Internal Medicine Nephrology; Nurse Practitioner Family; Surgery; Admitting Provider Internal Medicine; Emergency Provider Emergency Medicine; PCP Family Medicine; Visit Provider Nurse Practitioner Acute Care
PROC: 0JH63XZ Insertion of Tunneled Vascular Access Device into Chest Subcutaneous Tissue and Fascia, Percutaneous Approach (ICD-10-PCS; CPT 36908; principal; 2024-12-07 09:30)
DX: T82.41XA Breakdown (mechanical) of vascular dialysis catheter, initial encounter (principal); E87.20 Acidosis, unspecified; I12.0 Hypertensive chronic kidney disease with stage 5 chronic kidney disease or end stage renal disease; N18.6 End stage renal disease; E11.22 Type 2 diabetes mellitus with diabetic chronic kidney disease; Z99.2 Dependence on renal dialysis; F12.10 Cannabis abuse, uncomplicated; D50.9 Iron deficiency anemia, unspecified
CPT/HCPCS: 36415; 71046; 77001; 80048; 80053; 80069; 82948; 84478; 85025; 85027; 85610; 85730; 86706; 86850; 86900; 86901; 87040; 87340; 87641; 96374; 99285; A9270; C1750; G0257; G0378; J1644; J2004; J2704; J3010; J3370; J7030; J7042; Q5105